=== PATIENT | female | born 1950 | race Caucasian/White ===

== ENCOUNTER 2019-09-09 05:49 | Outpatient (RCR) | payer MEDICARE, MEDICAID, SELFPAY | END 2019-09-24 00:01 | LOC: LAB 05:49 | PROVIDERS: Family Provider Family Medicine; Visit Provider Family Medicine | DX: I10 Essential (primary) hypertension (principal); E78.5 Hyperlipidemia, unspecified; E08.21 Diabetes mellitus due to underlying condition with diabetic nephropathy | CPT/HCPCS: 80048; 80061; 83036; 85025 ==

== ENCOUNTER 2020-01-30 12:17 | Inpatient (IN) | payer MEDICARE, MEDICAID, SELFPAY ==
[2020-01-30] VITALS (11 sets, daily range): BP systolic 82–134; BP diastolic 54–73; PULSE 108–182; RESP 16–46; TEMP 37–37.7; O2SAT 89–97; BMI 49.6
--- NOTE | 2020-01-30 12:35 | ECG_ITS ---
Measurements Intervals [place] Rate: 128 P: RI: 0 QRS: -9 QRSD: 81 T: -20 QT: 341 QTc: 499 ATRIAL FIBRILLATION WITH RAPID VENTRICULAR RESPONSE ABNORMAL RHYTHM ECG No previous ECG available for comparison Electronically Signed On 01-30-2020 14:15:47 CDT by Angle Bell M.D. [id number]
--- NOTE | 2020-01-30 12:35 | USCV_ITS ---
Leatha Eemry Age: 69 Gender: F : 1950 Exam Date: 01/30/2020 13:07 Ordering Phys: Dirk Amos DO Technologist: Sadaf Pavon Exam Location: [facility] [place]_ Indication: LEG EDEMA HISTORY: Lower extremity edema. PROCEDURES: Examined bilaterally were the greater saphenous, common femoral, femoral, profunda, popliteal, posterior tibial veins, and peroneal trunk.. FINDINGS: All veins examined appear free of thrombus. No filling defects on color Doppler flow analysis. Vein flow and caliber vary with respiration. Increase in venous flow with augmentation. All veins appear compressible. Compression difficult due to patient inability to tolerate. CONCLUSIONS No evidence of right lower extremity DVT. No evidence of left lower extremity DVT. Sharad De Los Santos MD (Electronically Signed) Final Date: 30 Jan 2020 13:55 S
--- NOTE | 2020-01-30 12:40 | ED_ITS ---
HPI - General Adult General: Chief complaint: General Medical Stated complaint: HYPOTENSION Time Seen by Provider: 01/30/20 12:19 History of Present Illness: HPI narrative: 69 yo presents from senior care. She is at the senior care because of frequent falls and inability to manage her ADLs. group home reports to EMS that she had a temp and with short of breath. EMS had a temp of 98 2 on arrival. In the ER she has a blood pressure of 98 6 she was also hypotensive on arrival here she is 82/54 she semi-reclined and tolerating well with no evidence of lethargy or lightheadedness or dizziness. She denies any fever. She has not had any sweats or chills. She does have some moderate orthopnea but she states that is chronic and has not changed recently. She has a pretty significant ulcer of her left calf and a smaller area in the anterior tibia is been ongoing for some time she started out with 2 small bumps she had been being seen for wound care clinic for a few months currently they are just managing evidently at the senior care. She states her legs are moderately more swollen than usual and a little bit reddened. She reports swelling usually goes down at night. Associated symptoms: Deny chest pain, dyspnea, malaise, nausea, rash or vomiting Review of Systems Const: Denies: fever, chills, body aches, change in appetite, fatigue or malaise ENMT: Denies: throat pain, ear pain, nasal discharge or nasal congestion Card: Denies: chest pain, edema, shortness of breath on exertion or shortness of breath when lying down Resp: Denies: shortness of breath, productive cough or non-productive cough GI: Denies: abdominal pain, nausea, vomiting, vomiting blood, coffee grounds in vomit, diarrhea, constipation, bloating, blood in stool or black tarry stool : Denies: flank pain, difficulty urinating, painful urination, urinary frequency or urinary urgency Skin/Breast: Denies: rash or itching PFS ED PFSH: Medical History COPD (chronic obstructive pulmonary disease) Diabetic nephropathy Hypertension Hypothyroidism Leg ulcer, left Sleep apnea Type 2 diabetes mellitus Vascular dementia Surgical History History of bilateral knee arthroplasty S/P breast lumpectomy Social History Smoking and tobacco status: never smoked Current gender identity: Female Physical Exam Const: COMMON NORMALS: no apparent distress GENERAL APPEARANCE: cooperative and comfortable ORIENTATION/CONSCIOUSNESS: Yes awake, Yes oriented to person and Yes oriented to place HENMT: COMMON NORMALS: normocephalic, head/scalp atraumatic, hearing grossly normal bilaterally, moist oral mucous membranes and oropharynx normal HEAD & SCALP: normocephalic and atraumatic Eye: COMMON NORMALS: PERRL, conjunctivae normal and no scleral icterus CONJUNCTIVA: Yes conjunctivae normal PUPIL: Yes PERRL Neck/C-Spine: COMMON NORMALS: full ROM, no lymphadenopathy, supple and no JVD Lymph: LYMPHATIC: no lymphadenopathy noted and no lymphedema noted Resp: COMMON NORMALS: normal respiratory effort, no retractions and no use of accessory muscles EFFORT & INSPECTION: Yes decreased respiratory effort Cardio: COMMON NORMALS: no JVD, regular rate, regular rhythm and no murmurs RATE: regular rate RHYTHM: regular rhythm GI: COMMON NORMALS: soft to palpation and no hepatosplenomegaly AUSCULTATION: Yes normoactive bowel sounds PALPATION: Yes soft, No tender, No guarding and Yes no hepatosplenomegaly Extremity: COMMON NORMALS: normal to inspection, normal capillary refill, no clubbing, cyanosis or edema, no calf tenderness and no pedal edema Neuro: SENSORIUM/ORIENTATION: Yes oriented to person and Yes oriented to place Skin: NARRATIVE SKIN EXAM: Left medial posterior calf ulcer full-thickness with exposure of subcutaneous fat it is at various levels. Estimated to be 6 to 8 inches at its greatest length and 4-5 at its least it is irregularly shaped. There is a smaller left anterior tibial partial-thickness ulcer. Bilaterally lower extremities are moderately red with 2+ edema Course Vital Signs: Vital signs: Vital Signs Temperature 98.6 F 01/31/20 13:58 Pulse Rate 90 01/31/20 13:58 Respiratory Rate 18 01/31/20 13:58 Blood Pressure 118/50 01/31/20 13:58 Pulse Oximetry 97 01/31/20 13:58 MDM - General Adult MDM Narrative: Medical decision making narrative: Patient has new onset atrial fibrillation however blood pressure is relatively low. Discussed w Kathuria will admit Lab Data: Labs: Lab Results 01/30/20 01/30/20 01/30/20 Range/Units 12:49 12:49 12:49 WBC 13.9 H (4.0-10.0) 10^3/ uL RBC 3.34 L (4.1-5.3) 10^6/u L Hgb 9.5 L (11.5-15.3) g/dL Hct 30.5 L (37.0-47.0) % MCV 91.3 (81-99) fL MCH 28.4 (28.0-34.0) pg MCHC 31.1 (30.0-36.0) g/dL RDW 16.2 H (12.1-15.1) % Plt Count 448 H (130-400) 10^3/c mm MPV 9.0 (7.4-10.4) fL Neut % (Auto) 78.1 % Lymph % (Auto) 13.8 % Pope % (Auto) 6.3 % Eos % (Auto) 1.2 % Baso % (Auto) 0.1 % Neut # (Auto) 10.9 H (1.8-7.7) 10^3/u L Lymph # (Auto) 1.9 (0.8-4.8) 10^3/u L Pope # (Auto) 0.9 (0.2-0.9) 10^3/u L Eos # (Auto) 0.2 (0.0-0.8) 10^3/u L Baso # (Auto) 0.0 (0.0-0.1) 10^3/u L Nucleated RBC % (a uto) 0 % Nucleated RBCs # 0.0 /100WBC Sodium 137 (136-145) mmol/L Potassium 4.9 (3.5-5.1) mmol/L Chloride 103 (98-107) mmol/L Carbon Dioxide 21 L (22-29) mmol/L Anion Gap 17.9 (5-19) BUN 66 H (8-23) mg/dL Creatinine 3.5 H (0.5-0.9) mg/dL Glucose 116 H (65-115) mg/dL Calculated Osmolal ity 284 L (285-295) mOsm/k g Lactate (0.5-2.2) mmol/L Calcium 8.6 (8.5-10.5) mg/dL Total Bilirubin 0.3 (0.15-1.2) mg/dL AST 31 (0-32) U/L ALT 19 (0-33) U/L Alkaline Phosphata se 152 H (35-105) IU/L Troponin T Baselin e 125 H* (0-10) ng/mL Troponin T 120 Min [place] (0-10) ng/mL Delta Troponin T (0-10) ABS# Total Protein 6.0 L (6.6-8.7) g/dL Albumin 2.7 L (3.5-5.2) g/dL Globulin 3.3 (1.3-4.6) g/dL Urine Color (Yellow) Urine Appearance (CLEAR) Urine pH (5-7) Ur Specific Gravit y (1.005-1.030) Urine Protein (Negative) Urine Glucose (UA) (Normal) Urine Ketones (Negative) Urine Blood (Negative) Urine Nitrate (Negative) Urine Bilirubin (NEGATIVE) Urine Urobilinogen (Negative) mg/dL Ur Leukocyte Ruma ase (Negative) 01/30/20 01/30/20 01/30/20 Range/Units 12:53 13:40 14:44 WBC (4.0-10.0) 10^3/ uL RBC (4.1-5.3) 10^6/u L Hgb (11.5-15.3) g/dL Hct (37.0-47.0) % MCV (81-99) fL MCH (28.0-34.0) pg MCHC (30.0-36.0) g/dL RDW (12.1-15.1) % Plt Count (130-400) 10^3/c mm MPV (7.4-10.4) fL Neut % (Auto) % Lymph % (Auto) % Pope % (Auto) % Eos % (Auto) % Baso % (Auto) % Neut # (Auto) (1.8-7.7) 10^3/u L Lymph # (Auto) (0.8-4.8) 10^3/u L Pope # (Auto) (0.2-0.9) 10^3/u L Eos # (Auto) (0.0-0.8) 10^3/u L Baso # (Auto) (0.0-0.1) 10^3/u L Nucleated RBC % (a uto) % Nucleated RBCs # /100WBC Sodium (136-145) mmol/L Potassium (3.5-5.1) mmol/L Chloride (98-107) mmol/L Carbon Dioxide (22-29) mmol/L Anion Gap (5-19) BUN (8-23) mg/dL Creatinine (0.5-0.9) mg/dL Glucose (65-115) mg/dL Calculated Osmolal ity (285-295) mOsm/k g Lactate 0.8 (0.5-2.2) mmol/L Calcium (8.5-10.5) mg/dL Total Bilirubin (0.15-1.2) mg/dL AST (0-32) U/L ALT (0-33) U/L Alkaline Phosphata se (35-105) IU/L Troponin T Baselin e (0-10) ng/mL Troponin T 120 Min [place] 101.8 H (0-10) ng/mL Delta Troponin T -23.2 L (0-10) ABS# Total Protein (6.6-8.7) g/dL Albumin (3.5-5.2) g/dL Globulin (1.3-4.6) g/dL Urine Color [place] (Yellow) Urine Appearance Clear (CLEAR) Urine pH 5 (5-7) Ur Specific Gravit y 1.020 (1.005-1.030) Urine Protein Neg (Negative) Urine Glucose (UA) Trace H (Normal) Urine Ketones 1+ H (Negative) Urine Blood Neg (Negative) Urine Nitrate Negative (Negative) Urine Bilirubin 1+ H (NEGATIVE) Urine Urobilinogen 1 H (Negative) mg/dL Ur Leukocyte Ruma ase Negative (Negative) Discharge Plan Discharge Patient Disposition: Admitted As Inpatient Admit Provider: Niurka Miramontes Clinical Impression: Atrial fibrillation, Leg ulcer, left, Type 2 diabetes mellitus, Cellulitis of left leg, Acute kidney injury Condition: Stable Referrals: Huang Herrera MD, [facility] [Primary Care Provider] - Discharge Date/Time: 01/30/20 20:29 Coding Level of Care Code ED Sheetfed Press Operator for Chg Fwd Exam Comprehensive
[2020-01-30 13:03] LABS: Basophils % 0.1 %; Eosinophils # 0.2 10^3/uL (0.0-0.8); Eosinophils % 1.2 %; Hematocrit 30.5 % (37.0-47.0); Hemoglobin 9.5 g/dL (11.5-15.3); Lymphocytes # 1.9 10^3/uL (0.8-4.8); Lymphocytes % 13.8 %; Mean Corpuscular HGB Conc 31.1 g/dL (30.0-36.0); Mean Corpuscular Hemoglobin 28.4 pg (28.0-34.0); Mean Corpuscular Volume 91.3 fL (81-99); Monocytes # 0.9 10^3/uL (0.2-0.9); Monocytes % 6.3 %; Neutrophils # 10.9 10^3/uL (1.8-7.7); Neutrophils % 78.1 %; Nucleated Red Blood Cells % 0 %; Platelet Count 448 10^3/cmm (130-400); Red Blood Count 3.34 10^6/uL (4.1-5.3); Red Cell Distribution Width 16.2 % (12.1-15.1); White Blood Count 13.9 10^3/uL (4.0-10.0)
[2020-01-30 13:18] LABS: Alanine Aminotransferase 19 U/L (0-33); Albumin Level 2.7 g/dL (3.5-5.2); Alkaline Phosphatase 152 IU/L (35-105); Aspartate Amino Transferase 31 U/L (0-32); Chloride 103 mmol/L (98-107); Glucose 116 mg/dL (65-115); Potassium 4.9 mmol/L (3.5-5.1); Sodium 137 mmol/L (136-145)
[2020-01-30 13:19] LABS: Lactate (Lactic Acid level) 0.8 mmol/L (0.5-2.2)
[2020-01-30 13:41] LABS: Anion Gap 17.9 (5-19); Blood Urea Nitrogen 66 mg/dL (8-23); Calcium 8.6 mg/dL (8.5-10.5); Carbon Dioxide 21 mmol/L (22-29); Globulin 3.3 g/dL (1.3-4.6); Osmolality Calculated 284 mOsm/kg (285-295); Total Bilirubin 0.3 mg/dL (0.15-1.2)
[2020-01-30 13:48] LABS: Troponin(5th) Baseline 125 ng/mL (0-10)
[2020-01-30 13:53] LABS: Add Urine Microscopic? NO
--- NOTE | 2020-01-30 14:03 | XR_ITS ---
WS: [id number] XR chest 1V portable [id number] REASON FOR EXAM: dyspnea/cough FINDINGS: Cardiomegaly is noted the heart is larger than previous exam. The cardiothoracic ratio 19/3 2 cm. A prominent hiatal hernia is seen. The peripheral lungs are clear there is no pneumonia, pleural effu speedy, pulmonary edema, or mass effect. The hilum and apices normal. XR/XR chest 1V portable [id number] IMPRESSION: Cardiomegaly Hiatal hernia.
[2020-01-30 14:29] LABS: Blood Urine Neg (Negative); Glucose Urine UA Trace (Normal); Ketones Urine 1+ (Negative); Protein Urine Neg (Negative); Urine Appearance Clear (CLEAR); Urine Color Amber (Yellow); pH Urine 5 (5-7)
[2020-01-30 14:30] LABS: Bilirubin Urine 1+ (NEGATIVE); Leukocyte Esterase Urine Negative (Negative); Nitrate Urine Negative (Negative); Urobilinogen Urine 1 mg/dL (Negative)
--- NOTE | 2020-01-30 14:35 | ECG_ITS ---
Measurements Intervals [place] Rate: 103 P: [place]: 0 QRS: -1 QRSD: 93 T: -66 QT: 331 QTc: 435 ATRIAL FIBRILLATION WITH RAPID VENTRICULAR RESPONSE NONSPECIFIC T-WAVE ABNORMALITY Compared to ECG 01/30/2020 12:39:39 T-wave abnormality now present Electronically Signed On 01-31-2020 15:28:59 CDT by Angle Bell M.D. [id number]
[2020-01-30] MEDS: LORazepam 2 mg/mL INJ 1 mL 0.5 MG IVP (15:12)
[2020-01-30 15:25] LABS: Troponin 5 2HR Delta -23.2 ABS# (0-10)
[2020-01-30 15:26] LABS: Troponin 5 2HR 101.8 ng/mL (0-10)
--- NOTE | 2020-01-30 16:11 | PM.HP ---
Providers/Chief Complaint Admitting Physician: Niurka miramontes MD Primary Care Provider: Huang Herrera MD, [facility] [place] Chief Complaint: HYPOTENSION History of Present Illness Leatha Emery is a 69 year old female with a past medical history of CAD, hypertension, CKD, GALA, asthma, diabetes, chronic lower extremity cellulitis, edema in bilateral lower extremities with history of frequent admissions at [facility] after being admitted there to the ICU for management of severe sepsis with septic shock found to be secondary to bilateral lower extremity cellulitis. She also had acute metabolic encephalopathy, hypokalemia, PERRY and acute respiratory failure with hypoxia at the time. It appears she underwent debridement at bedside for lower extremity cellulitis and necrotic wound on January 06 by surgical team there. He was initially on vasopressors for a little bit and then improved. Her PERRY also improved reportedly. Blood cultures from January 06 had returned positive for Streptococcus pyogenes. Wound cultures from January 06 also showed positive for Streptococcus biology knees. Per notes reviewed from that hospitalization, it appears Pseudomonas and MRSA were also isolated, however I am unable to get any confirmation of this. Leukocytosis at the time of discharge was 16.6. She was discharged on January 11. He received treatment with IV cefazolin while in the hospital and was discharged on IV vancomycin for 1 week post discharge. Thereafter she was on a course of Omnicef for 10 days. She returns today to the ER after being sent from [facility] after noted to have fever of 100.7 Fahrenheit last evening. She was additionally hypotensive with SBP 80s at the [place] and again at presentation to ED. Labs notable for PERRY, elevated troponin >100, atrial fibrillation with RVR (also noted on recent admission at [place]), leukocytosis 13.9. Her wound has reportedly been getting worse and noted to have foul smelling greenish discharge. She is afebrile sine arrival here, currently awake and alert, though grossly appears to be dehydrated and ill appearing. Review of Systems General: Reports: 10 or more systems reviewed and unremarkable except in HPI and below Const: Denies: fever, chills or body aches Eyes: Denies: change in vision, blurry vision or photophobia ENMT: Reports: hoarseness; Denies: throat pain, enlarged tonsils, painful swallowing or nasal congestion Card: Denies: chest pain, palpitations, irregular heart rhythm, edema, swelling of feet/ankles, lightheadedness, pre-syncope, shortness of breath on exertion or shortness of breath when lying down Resp: Denies: shortness of breath, productive cough, non-productive cough, wheezing, stridor, pain on inspiration, change in phlegm color, coughing up blood or chest congestion GI: Denies: abdominal pain, nausea, vomiting, vomiting blood, coffee grounds in vomit, difficulty swallowing, heartburn/indigestion, diarrhea, constipation, cramping, change in stool character, blood in stool or black tarry stool : Denies: flank pain, difficulty urinating, painful urination, urinary frequency, urinary urgency, urinary hesitancy or blood in urine Musc: Denies: neck pain, back pain, extremity pain, joint swelling, joint warmth or deformity Neuro: Denies: headache, numbness in extremities, weakness in extremities, changes in sensation, difficulty walking, frequent falls, dizziness, vertigo, behavioral changes, slurred speech or seizure-like activity Psych: Denies: anxiety, depression, suicidal ideation or homicidal ideation Endo: Denies: excessive urination, excessive thirst, tired all the time, cold intolerance or hot flashes Vitor/Lymph: Denies: easy bruising or easy bleeding Medications/Allergies Home Medications Medication Instructions Recorded Confirmed Last Taken Type acetaminophen 650 mg PO QID PRN 01/30/20 01/30/20 01/29/20 History amlodipine 5 mg PO DAILY 01/30/20 01/30/20 01/30/20 History aripiprazole 5 mg PO BID 01/30/20 01/30/20 01/30/20 History aspirin 81 mg PO DAILY 01/30/20 01/30/20 01/30/20 History bisacodyl 10 mg DC DAILY PRN 01/30/20 01/30/20 01/30/20 History calcium carbonate 500 mg PO DAILY 01/30/20 01/30/20 01/30/20 History cefdinir 300 mg PO BID 01/30/20 01/30/20 01/30/20 History dapagliflozin [Farxiga] 5 mg PO DAILY 01/30/20 01/30/20 01/30/20 History fesoterodine [Toviaz] 4 mg PO DAILY 01/30/20 01/30/20 01/30/20 History fluticasone furoate-vilanterol 1 inh INHALATION DAILY 01/30/20 01/30/20 01/30/20 History [Breo Ellipta] fluticasone propionate 2 spray INTRANASAL DAILY 01/30/20 01/30/20 01/30/20 History furosemide [Lasix] 40 mg PO DAILY 01/30/20 01/30/20 01/30/20 History levothyroxine 125 mcg PO DAILY 01/30/20 01/30/20 01/30/20 History linagliptin [Tradjenta] 5 mg PO DAILY 01/30/20 01/30/20 01/30/20 History lisinopril 10 mg PO DAILY 01/30/20 01/30/20 01/30/20 History magnesium hydroxide [Milk of 30 ml PO DAILY PRN 01/30/20 01/30/20 01/29/20 History Magnesia] melatonin 3 mg PO DAILY 01/30/20 01/30/20 01/29/20 History metoprolol tartrate 100 mg PO BID 01/30/20 01/30/20 01/30/20 History mirtazapine 45 mg PO DAILY 01/30/20 01/30/20 01/30/20 History multivitamin 1 tab PO DAILY 01/30/20 01/30/20 01/30/20 History nystatin 1 applic TOPICAL BID 01/30/20 01/30/20 01/30/20 History oxycodone-acetaminophen 1 tab PO DAILY 01/30/20 01/30/20 01/30/20 History oxycodone-acetaminophen 1 tab PO Q4H PRN 01/30/20 01/30/20 01/30/20 History pantoprazole 40 mg PO DAILY 01/30/20 01/30/20 01/30/20 History polyethylene glycol 3350 [Miralax] 17 g PO DAILY PRN 01/30/20 01/30/20 01/30/20 History senna 8.6 mg PO BID 01/30/20 01/30/20 01/30/20 History simvastatin 20 mg PO DAILY 01/30/20 01/30/20 01/29/20 History sodium hypochlorite [HySept] 1 applic TOPICAL BID 01/30/20 01/30/20 01/29/20 History trazodone 200 mg PO DAILY 01/30/20 01/30/20 01/29/20 History venlafaxine 150 mg PO DAILY 01/30/20 01/30/20 01/30/20 History Allergies Allergy/AdvReac Type Severity Reaction Status Date / Time clarithromycin Allergy Unknown Unknown Verified 01/30/20 13:48 hydrocodone Allergy Unknown Unknown Verified 01/30/20 13:48 metformin Allergy Unknown Unknown Verified 01/30/20 13:48 sitagliptin [From Januvia] Allergy Unknown Unknown Verified 01/30/20 13:48 tetanus and diphtheria Allergy Unknown Unknown Verified 01/30/20 13:48 toxoids triamcinolone Allergy Unknown Unknown Verified 01/30/20 13:48 PFSH Acute PFSH: Medical History COPD (chronic obstructive pulmonary disease) Diabetic nephropathy Hypertension Hypothyroidism Leg ulcer, left Sleep apnea Type 2 diabetes mellitus Vascular dementia Surgical History History of bilateral knee arthroplasty S/P breast lumpectomy Social History Smoking and tobacco status: never smoked Current gender identity: Female Vitals/I&O/Wt Last Vital Signs Temp 98.6 F 01/30/20 12:19 Pulse 120 H 01/30/20 12:19 Resp 17 01/30/20 13:45 BP 82/54 01/30/20 12:19 Pulse Ox 95 01/30/20 12:26 Weight last 48 hrs Weight 127.006 kg Physical Exam Narrative: EXAM NARRATIVE: GEN: Awake, alert and oriented, dehydrated+, ill appearing grossly HEENT: dry skin no icterus ,pallor+ RS: CTA B/L except crackles over RUL Abd: Soft, nt/nd , bs+ 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 B/L lower exxtremities with warmth, tenderness and erythema c/f cellulitis. Some bullae notes on right ankle medially Urinary Catheter Management^: Patino: Cath Placed During This Visit: yes Reason for Continuing Indwelling Catheter: Assist healing open wound Urinary Catheter Date of Insertion: 01/30/20 Urinary Catheter Time of Insertion: 13:46 Data : 01/30/20 12:49 01/30/20 12:49 Micro: Microbiology 01/30/20 12:49 Blood Culture - Preliminary Blood SPECIMEN COLLECTED 01/30/20 12:53 Blood Culture - Preliminary Blood SPECIMEN COLLECTED A&P Assessment and plan (1) Sepsis: Status: Acute (2) Sepsis associated hypotension: Status: Acute (3) Acute kidney injury: Status: Acute (4) Cellulitis of left leg: Status: Acute (5) Atrial fibrillation: Status: Acute (6) Sleep apnea: Status: Acute (7) Vascular dementia: Status: Acute (8) PERRY (acute kidney injury): Status: Acute (9) Type 2 diabetes mellitus: Status: Acute (10) Hypothyroidism: Status: Acute (11) Leg ulcer, left: Status: Acute (12) COPD (chronic obstructive pulmonary disease): Status: Acute (13) Elevated troponin: Status: Acute Additional A&P Information Admit to ICU # Sepsis: meets criteria with tachycardia, leukocytosis, fever, infective focus by way of cellulitis with end organ dysfunction by way of PERRY and hypotension Hypotensive currenty improving after fluid boluses, BP at 100/69mmhg HR 120 Maintainence IVF at 75cc/hr Patient grossly dehydrated, intravascularly deplted, unclear if she has a h/o CHF or last EF, however per review of meds she is on daily lasix. Recent h/o group B strep septicemia with septic shock requiring admission at [place], source thought to be LE cellulitis, s/p iv vancomycin + cefdinir, stopped one week ago Wound cx per report with pseudomonas and MRSA additionally Prior to that admitted at [facility], details unknown Blood cx sent empiric Zosyn + vanco for now # Afib with RVR, likely as a result of sepsis Fluid resuscitation as above Will hold off on rate control medication until BP improves Troponin elevated with negative 2 hr delta, likely as a result of afib vs type [address]-T changes on EKG currently Hold off on a/c for now until bleeding risk can be established # PERRY likely from sepsis Patino, I/o strictly, fluids as above # troponin leak as above, check echocardiogram # LE cellilitis: abx as above # LE chronic ulcers in the setting of lymphedema : local wound care # COPD, not currently exacerbated: duoneb and budesonide scheduled nebulization BiPAP if needed. doesnt usually use at facility # DM: insulin sliding scale DNR/DNI dvt ppx: heparin Attestations Medical Necessity Statement*: ICU admission for sepsis management Coding Level of Care Code Acute Technical Communication Teacher for g Fwd Diagnoses Sepsis A41.9 Sepsis associated hypotension A41.9; I95.9 Acute kidney injury N17.9 Cellulitis of left leg L03.116 Atrial fibrillation I48.91 Sleep apnea G47.30 Vascular dementia F01.50 PERRY (acute kidney injury) N17.9 Type 2 diabetes mellitus E11.9 Hypothyroidism E03.9 Leg ulcer, left L97.929 COPD (chronic obstructive pulmonary disease) J44.9 Elevated troponin R79.89
[2020-01-30] MEDS: piperacillin-tazobactam 3.375 GM in sodium chloride 0.9% (plus) 50 ML IV (16:38)
--- NOTE | 2020-01-30 17:12 | PC.RESP ---
Smoking Cessation information to patient with a schedule of classes.
--- NOTE | 2020-01-30 18:35 | ECG_ITS ---
Measurements Intervals [place] Rate: 115 P: [place]: 0 QRS: 2 QRSD: 84 T: -59 QT: 309 QTc: 428 ATRIAL FIBRILLATION WITH RAPID VENTRICULAR RESPONSE NONSPECIFIC T-WAVE ABNORMALITY Compared to ECG 01/30/2020 12:39:39 T-wave abnormality now present Electronically Signed On 01-31-2020 15:27:56 CDT by Angle Bell M.D. [id number]
--- NOTE | 2020-01-30 18:49 | PC.NURSE ---
EKG done at 1847 and shown to ER doctor
[2020-01-30 19:28] LABS: Troponin 5 6HR Delta -15.4 ng/L (0-12)
[2020-01-30 19:29] LABS: Troponin 5 6HR 109.6 ng/mL (0-10)
--- NOTE | 2020-01-30 19:46 | PC.NURSE ---
REport called to [facility]
[2020-01-30 19:51] LABS: Magnesium 2.1 mg/dL (1.7-2.3)
[2020-01-30 20:43] LABS: Glucose Point of Care 78 mg/dL (70-110)
[2020-01-30] MEDS: sodium chloride 0.9% 1,000 ML 75 ML IV (20:59)
--- NOTE | 2020-01-30 21:29 | PC.NURSE ---
Large ulceration to left lower leg, blister to right lower leg. SCDs not applied.
[2020-01-30] MEDS: heparin 5,000 unit/mL INJ 1 mL 5000 UNIT SUBCUT (21:33)
[2020-01-31] VITALS (21 sets, daily range): BP systolic 102–136; BP diastolic 42–74; PULSE 82–116; RESP 14–29; TEMP 36.6–37.5; O2SAT 91–97
[2020-01-31] MEDS: piperacillin-tazobactam 3.375 GM in sodium chloride 0.9% (plus) 50 ML IV ×2 (02:10→13:30)
[2020-01-31] MEDS: ipratropium-albuterol 3 mL Neb INHALATION ×4 (03:08→20:09)
[2020-01-31 03:12] LABS: Glucose Point of Care 94 mg/dL (70-110)
[2020-01-31] MEDS: acetaminophen 325 mg Tablet 650 MG PO ×2 (03:36→12:35)
[2020-01-31] MEDS: morphine 4 mg/mL SDV 1 mL 2 MG IVP (04:04)
[2020-01-31 04:56] LABS: Basophils % 0.2 %; Eosinophils # 0.4 10^3/uL (0.0-0.8); Eosinophils % 2.9 %; Hematocrit 28.4 % (37.0-47.0); Hemoglobin 8.7 g/dL (11.5-15.3); Lymphocytes # 2.6 10^3/uL (0.8-4.8); Lymphocytes % 21.4 %; Mean Corpuscular HGB Conc 30.6 g/dL (30.0-36.0); Mean Corpuscular Hemoglobin 28.6 pg (28.0-34.0); Mean Corpuscular Volume 93.4 fL (81-99); Mean Platelet Volume 9.3 fL (7.4-10.4); Monocytes % 8.4 %; Neutrophils # 8.1 10^3/uL (1.8-7.7); Neutrophils % 66.4 %; Nucleated Red Blood Cells % 0 %; Platelet Count 391 10^3/cmm (130-400); Red Blood Count 3.04 10^6/uL (4.1-5.3); Red Cell Distribution Width 16.2 % (12.1-15.1); White Blood Count 12.2 10^3/uL (4.0-10.0)
[2020-01-31 05:25] LABS: Alanine Aminotransferase 17 U/L (0-33); Albumin Level 2.3 g/dL (3.5-5.2); Alkaline Phosphatase 128 IU/L (35-105); Anion Gap 15.5 (5-19); Aspartate Amino Transferase 27 U/L (0-32); Blood Urea Nitrogen 48 mg/dL (8-23); Calcium 8.5 mg/dL (8.5-10.5); Carbon Dioxide 22 mmol/L (22-29); Chloride 107 mmol/L (98-107); Globulin 3.7 g/dL (1.3-4.6); Glucose 94 mg/dL (65-115); Osmolality Calculated 288 mOsm/kg (285-295); Potassium 4.5 mmol/L (3.5-5.1); Sodium 140 mmol/L (136-145); Total Bilirubin 0.3 mg/dL (0.15-1.2)
[2020-01-31] MEDS: heparin 5,000 unit/mL INJ 1 mL 5000 UNIT SUBCUT ×2 (08:17→21:11)
[2020-01-31] MEDS: budesonide 0.5 mg/2 mL Neb INHALATION ×2 (09:15→20:09)
[2020-01-31] MEDS: atorvastatin 40 mg Tablet 20 MG PO (09:42)
[2020-01-31] MEDS: ARIPiprazole 10 mg Tablet 5 MG PO ×2 (09:42→19:05)
[2020-01-31] MEDS: mirtazapine 30 mg Tablet 45 MG PO (09:42)
[2020-01-31] MEDS: aspirin 81 mg EC Tablet PO (09:42)
[2020-01-31] MEDS: levothyroxine 125 mcg Tablet PO (09:42)
[2020-01-31] MEDS: nystatin powder 15 gm Btl 1 APPLIC TOPICAL (09:42)
[2020-01-31] MEDS: pantoprazole DR 40 mg Tablet PO (09:43)
[2020-01-31] MEDS: venlafaxine ER (24HR) 150 mg Capsule PO (09:43)
--- NOTE | 2020-01-31 09:50 | PM.PN ---
Subjective Subjective: Interval history: Afberile, hemodynamically stable, appears more somnolent this morning, earlier today per reports she was conversant. WBC 12.2, hb 8.7, cr improving at 2.1. Blood cx negative thus far. Medications: Reviewed: Yes Vitals/I&O/Wt Last Vital Signs Temp 97.9 F 01/31/20 04:00 Pulse 83 01/31/20 09:25 Resp 19 H 01/31/20 09:25 BP 114/42 01/31/20 06:00 Pulse Ox 95 01/31/20 09:25 01/30/20 01/31/20 01/31/20 22:59 06:59 14:59 Intake Total 4085.18 / 4085.18 25 / 4110.18 Output Total 900 / 900 450 / 1350 Balance 3185.18 / 3185.18 -425 / 2760.18 Weight last 48 hrs Weight 118.887 kg Weight 119.023 kg Weight 127.006 kg Physical Exam Narrative: EXAM NARRATIVE: GEN: more somnolent this morning, no acute distress CVS: S1S2 N RS: CTA B/L anteriorly, not auscultated posteriorly Abd: Soft, nt/nd , bs+ DRY CHAIN PULLER: more somnolent, wakes up intermittently to nod yes or no Urinary Catheter Management^: Patino: Cath Placed During This Visit: yes Reason for Continuing Indwelling Catheter: Assist healing open wound Urinary Catheter Date of Insertion: 01/30/20 Urinary Catheter Time of Insertion: 13:46 Data : 01/31/20 04:23 01/31/20 04:23 Micro: Microbiology 01/30/20 12:49 Blood Culture - Preliminary Blood SPECIMEN COLLECTED 01/30/20 12:53 Blood Culture - Preliminary Blood SPECIMEN COLLECTED A&P Assessment and plan (1) Sepsis: Status: Acute (2) Sepsis associated hypotension: Status: Acute (3) Acute kidney injury: Status: Acute (4) Cellulitis of left leg: Status: Acute (5) Atrial fibrillation: Status: Acute (6) Sleep apnea: Status: Acute (7) Vascular dementia: Status: Acute (8) Type 2 diabetes mellitus: Status: Acute (9) Hypothyroidism: Status: Acute (10) Leg ulcer, left: Status: Acute (11) COPD (chronic obstructive pulmonary disease): Status: Acute (12) Elevated troponin: Status: Acute Additional A&P Information Admit to ICU # Sepsis: meets criteria with tachycardia, leukocytosis, fever, infective focus by way of cellulitis with end organ dysfunction by way of PERRY and hypotension Continue Maintainence IVF at 75cc/hr Hydration appears improved today, renal function improving Recent h/o group B strep septicemia with septic shock requiring admission at [place] 12/2019, source thought to be LE cellulitis, s/p iv vancomycin + cefdinir, stopped one week ago Wound cx per report with pseudomonas and MRSA additionally Prior to that admitted at [facility], details unknown Blood cx sent , currently negative to date empiric Zosyn + vanco for now to continue # Afib with RVR, likely as a result of sepsis , rate controlled now Troponin elevated with negative 2 hr delta, likely as a result of afib vs type [address] [place]-T changes on EKG currently Hold off on a/c for now until bleeding risk can be established # PERRY likely from sepsis Patino, I/o strictly, fluids as above, improving to cr 2.1 # troponin leak as above, check echocardiogram # LE cellilitis: abx as above. Evolving color changes over LLE today, if doppler pulses not obtained, will order arterial duplex # LE chronic ulcers in the setting of lymphedema : local wound care , wet to dry dressing # COPD, not currently exacerbated: duoneb and budesonide scheduled nebulization BiPAP if needed. Doesn't usually use at facility # DM: insulin sliding scale # more somnolent today, hold remeron and venlafaxine today, monitor closely, pupils B/L NSNR, moving upper extremities, CT head if no improvement in mental status DNR/DNI dvt ppx: heparin Attestations Medical Necessity Statement*: ongoing need for iv abx, management of sepsis Coding Level of Care Code Acute Nitroglycerin Distributor for [facility] Fwd Diagnoses Sepsis A41.9 Sepsis associated hypotension A41.9; I95.9 Acute kidney injury N17.9 Cellulitis of left leg L03.116 Atrial fibrillation I48.91 Sleep apnea G47.30 Vascular dementia F01.50 Type 2 diabetes mellitus E11.9 Hypothyroidism E03.9 Leg ulcer, left L97.929 COPD (chronic obstructive pulmonary disease) J44.9 Elevated troponin R79.89
--- NOTE | 2020-01-31 10:20 | USCV_ITS ---
Leatha Emery Age: 69 Gender: F : 1950 Exam Date: 01/31/2020 15:19 Ordering Phys: Niurka Miramontes MD Technologist: Cain Alcala Exam Location: [facility] [place] Indication: Developing gangereneous changes Risk Factors: Previous Vascular Surgery: RIGHT LEFT Waveform Velocity (cm/s) Velocity (cm/s) Waveform Iliac Prox 158.1 Monophasic Iliac Mid Monophasic 124.6 Iliac Distal 131.0 Monophasic HONEY PRODUCER 142.2 Monophasic SFA Prox 150.2 Monophasic SFA Mid 140.6 Monophasic SFA Dist 124.6 Monophasic POP 123.0 Monophasic DPA 21.0 Monophasic ANAND 0.4 FINDINGS No flow noted in LT MAIL CARRIER TECHNICIAN at this time. Monophasic waveforms throughout Monophasic and continuous waveform in the dorsalis pedis artery Markedly diminished resting TBI CONCLUSIONS Markedly diminished resting TBI on the left side, suggestive of severe peripheral arterial disease Possible multisegmental disease Features of total occlusion of the posterior tibial artery with collateral filling in the dorsalis pedis artery Compared to the study from 09/24/2015, the above findings appear to be new Dr Ruddy John MD FAC (Electronically Signed) Final Date: 31 Jan 2020 19:32 S
[2020-01-31] MEDS: sodium chloride 0.9% 1,000 ML 75 ML IV (10:51)
[2020-01-31 11:30] LABS: Glucose Point of Care 85 mg/dL (70-110)
[2020-01-31 11:30] LABS: Glucose Point of Care 95 mg/dL (70-110)
--- NOTE | 2020-01-31 13:30 | PC.NURSE ---
Patient's son Hugo Emery called and stated that he does not feel like his mother is getting the proper care at [facility] and he would like to speak to someone about possibly placing his mother in another facility. Explained to Hugo that someone from social science research assistant could call him closer to her discharge. Hugo verbalized understanding and ask that someone call him before discharge.
--- NOTE | 2020-01-31 13:57 | PC.NURSE ---
Report to Paula THORPE at this time.
[2020-01-31 16:22] LABS: Glucose Point of Care 89 mg/dL (70-110)
--- NOTE | 2020-01-31 17:29 | PC.PT ---
discussed mobility with [facility] and nursing states she has been a devin lift transfer lately due to refusing to assist with transfers. D/C PT services.
--- NOTE | 2020-01-31 20:40 | USCV_ITS ---
Leatha Emery Age: 69 Gender: F : 1950 Exam Date: 01/31/2020 15:05 Ordering Phys: Niurka Miramontes MD Technologist: Cain Alcala Exam Location: [facility] [place] Indication: ENDOCARDITIS BP: 132 / 75 HR: 92 Rhythm: Sinus Technical Quality: Fair MEASUREMENTS (Male / Female) Normal Values 2D ECHO LV Diastolic Diameter PLAX 4.3 cm 4.2 - 5.9 / 3.9 - 5.3 cm LV Systolic Diameter PLAX 2.7 cm IVS Diastolic Thickness 0.9 cm 0.6 - 1.0 / 0.6 - 0.9 cm IVS Systolic Thickness 1.1 cm LVPW Diastolic Thickness 0.9 cm 0.6 - 1.0 / 0.6 - 0.9 cm LVPW Systolic Thickness 1.3 cm LVOT Diameter 2.0 cm LV Ejection Fraction 2D Teich 67.3 % LV Ejection Fraction MOD 2C 59.6 % LV Ejection Fraction 2C AL 59.3 % LA Diameter 5.8 cm LA Width 5.5 cm LA Height 4.9 cm RA Width 4.0 cm RA Height 4.0 cm Aorta at Sinotubular Diameter 2.5 cm M-MODE LV Diastolic Diameter MM 5.7 cm 4.2 - 5.9 / 3.9 - 5.3 cm LV Systolic Diameter MM 4.0 cm LV Ejection Fraction MM Teich 56.9 % IVS Diastolic Thickness MM 1.0 cm 0.6 - 1.0 / 0.6 - 0.9 cm IVS Systolic Thickness MM 1.4 cm LVPW Diastolic Thickness MM 1.4 cm 0.6 - 1.0 / 0.6 - 0.9 cm LVPW Systolic Thickness MM 2.0 cm RV Diastolic Diameter MM 1.3 cm Aortic Annulus Diameter 3.5 cm LA Ao Ratio MM 1.7 MV E Point Septal Separation 1.1 cm DOPPLER AV Peak Velocity 155.0 cm/s LVOT Peak Velocity 108.0 cm/s AV Area Cont Eq vti 2.6 cm squared AV Area Cont Eq pk 2.2 cm squared MV Area PHT 3.9 cm squared Mitral E to A Ratio 4.2 MV E' Velocity 12.0 cm/s Mitral E to MV E' Ratio 8.9 Mitral E to LV E' Lateral Ratio 9.2 Mitral E to LV E' Septal Ratio 8.6 TR Peak Velocity 265.0 cm/s TR Peak Gradient 28.1 mmHg TV Peak E Velocity 97.0 cm/s Right Atrial Pressure 3.0 mmHg Pulmonary Artery Systolic Pressu 31.1 mmHg PV Peak Velocity 125.0 cm/s FINDINGS Left Ventricle Normal left ventricular size and systolic function, EF 55 %. No gross abnormalities noted. Study is of suboptimal quality because of the poor ultrasonic window Right Ventricle Normal right ventricular size and systolic function. Right Atrium Possibly of normal size Left Atrium Moderately increased left atrial size. Mitral Valve Moderate mitral annular calcification. Mild mitral valve regurgitation. Aortic Valve Thickened aortic valve. Tricuspid Valve Could not be visualized well Pulmonic Valve Could not visualized well Pericardium No pericardial effusion. Aorta Normal aortic annulus size. CONCLUSIONS Normal left ventricular size and systolic function, EF 55 %. No gross abnormalities noted. Study is of suboptimal quality because of the poor ultrasonic window. Normal right ventricular size and systolic function. Moderate mitral annular calcification. Mild mitral valve regurgitation. Thickened aortic valve. There is no pericardial effusion. There are no intracardiac masses. Technically difficult study because of the poor ultrasonic window. No previous studies available for comparison Dr Ruddy John MD FACC (Electronically Signed) Final Date: 31 Jan 2020 19:03 S
[2020-01-31 21:36] LABS: Glucose Point of Care 153 mg/dL (70-110)
[2020-02-01] VITALS (15 sets, daily range): BP systolic 106–139; BP diastolic 67–84; PULSE 85–110; RESP 12–26; TEMP 36.4–37.4; O2SAT 92–97
[2020-02-01] MEDS: piperacillin-tazobactam 3.375 GM in sodium chloride 0.9% (plus) 50 ML IV ×3 (02:11→20:27)
[2020-02-01] MEDS: ipratropium-albuterol 3 mL Neb INHALATION ×3 (02:16→20:13)
--- NOTE | 2020-02-01 02:18 | PC.NURSE ---
PT REFUSED INSULIN BECAUSE SHE FELT THAT HER SUGAR WOULD DROP. BS WAS 153 BUT HAS BEEN 80-90'S. WILL CONTINUE TO MONITOR.
--- NOTE | 2020-02-01 03:29 | PC.NURSE ---
PT HAS BEEN ATTENTION SEEKING. PT HAS BEEN ON THE CALL LIGHT 20-30 TIMES PER HOUR. PT IS NON COMPLIANT WITH TURNING, INSULIN, SNACKS, WEARING 02, OR KEEPING PRESSURE OFF THE LLE. PT WAS USING THE KURLEX TO SCRATCH THE BACK OF THE LEFT CALF. PT C/O 10/10 PAIN EARLIER AND THE DOCTOR PRESCRIBED HYDROMORPHONE 2MG. PT SAID THAT HELPED A LITTLE. DRESSING WAS COMPLETELY SATURATED SO A NEW DRESSING WAS APPLIED. WILL CONTINUE TO MONITOR.
[2020-02-01 04:49] LABS: Basophils % 0.3 %; Eosinophils # 0.3 10^3/uL (0.0-0.8); Eosinophils % 3.1 %; Hemoglobin 9.7 g/dL (11.5-15.3); Lymphocytes # 2.1 10^3/uL (0.8-4.8); Lymphocytes % 20.2 %; Mean Corpuscular HGB Conc 30.3 g/dL (30.0-36.0); Mean Corpuscular Volume 95.8 fL (81-99); Mean Platelet Volume 9.3 fL (7.4-10.4); Monocytes # 0.9 10^3/uL (0.2-0.9); Monocytes % 8.3 %; Neutrophils % 67.4 %; Nucleated Red Blood Cells % 0 %; Platelet Count 392 10^3/cmm (130-400); Red Blood Count 3.34 10^6/uL (4.1-5.3); Red Cell Distribution Width 16.6 % (12.1-15.1); White Blood Count 10.4 10^3/uL (4.0-10.0)
[2020-02-01 05:39] LABS: Alkaline Phosphatase 133 IU/L (35-105); Anion Gap 15.5 (5-19); Blood Urea Nitrogen 29 mg/dL (8-23); Calcium 8.6 mg/dL (8.5-10.5); Carbon Dioxide 20 mmol/L (22-29); Chloride 109 mmol/L (98-107); Globulin 4.3 g/dL (1.3-4.6); Glucose 110 mg/dL (65-115); Osmolality Calculated 288 mOsm/kg (285-295); Potassium 4.5 mmol/L (3.5-5.1); Sodium 140 mmol/L (136-145); Total Bilirubin 0.2 mg/dL (0.15-1.2); Total Protein 6.3 g/dL (6.6-8.7)
[2020-02-01 05:40] LABS: Alanine Aminotransferase 17 U/L (0-33); Aspartate Amino Transferase 27 U/L (0-32)
[2020-02-01 06:15] LABS: Glucose Point of Care 97 mg/dL (70-110)
--- NOTE | 2020-02-01 07:45 | PC.NURSE ---
PICC LINE not patent Pt gown was soaked. Pt stated, they have change me 3-4 times yesterday. When PICC line was assessed, flushed with saline, it is leaking. No blood return noted. notified. New IV started on left hand. #20 G.
--- NOTE | 2020-02-01 07:45 | PC.NURSE ---
PICC LINE not Patent Pt had a soaked gown upun
[2020-02-01] MEDS: aspirin 81 mg EC Tablet PO (08:13)
[2020-02-01] MEDS: ARIPiprazole 10 mg Tablet 5 MG PO ×2 (08:15→17:24)
[2020-02-01] MEDS: pantoprazole DR 40 mg Tablet PO (08:15)
[2020-02-01] MEDS: atorvastatin 40 mg Tablet 20 MG PO (08:15)
[2020-02-01] MEDS: levothyroxine 125 mcg Tablet PO (08:15)
[2020-02-01] MEDS: metoprolol tartrate 50 mg Tablet 100 MG PO ×2 (08:16→17:25)
[2020-02-01] MEDS: heparin 5,000 unit/mL INJ 1 mL 5000 UNIT SUBCUT ×2 (08:16→20:28)
[2020-02-01] MEDS: budesonide 0.5 mg/2 mL Neb INHALATION ×2 (08:28→20:13)
[2020-02-01 08:50] LABS: Vancomycin Trough 5.5 ug/mL (10-15)
[2020-02-01] MEDS: nystatin powder 15 gm Btl 1 APPLIC TOPICAL ×2 (10:49→17:25)
[2020-02-01 11:15] LABS: Glucose Point of Care 121 mg/dL (70-110)
--- NOTE | 2020-02-01 13:30 | P.PN_ITS ---
Subjective Subjective: Interval history: c/o pain over legs, wishes to reposition, cant get into comfortbale position. Noted to be more tachypneic than previous exams Arterial doppler yesetrday with occluded AMMUNITION STOREKEEPER. Stable color changes over extremities Patient is mildly confused today and believes she was speaking to her , who had also visited her this afternoon. Medications: Reviewed: Yes Vitals/I&O/Wt Last Vital Signs Temp 98.4 F 02/01/20 11:53 Pulse 95 02/01/20 11:53 Resp 16 02/01/20 12:18 BP 129/77 02/01/20 11:53 Pulse Ox 95 02/01/20 11:53 01/31/20 02/01/20 02/01/20 22:59 06:59 14:59 Intake Total 290 / 1290 50 / 1340 1360 / 1360 Output Total 400 / 1200 450 / 1650 Balance -110 / 90 -400 / -310 1360 / 1360 Weight last 48 hrs Weight 117.991 kg Weight 118.887 kg Weight 119.023 kg Physical Exam Narrative: EXAM NARRATIVE: GEN:awake, alert, intermittent confusion, no acute distress CVS: S1S2 N RS: B/L LL crepts+ Abd: Soft, nt/nd , bs+ MISSILE MECHANIC: awake, alert, conversant EXT: lower extremity wrapped up, discharge continuing from extremities, surrounding cellulitis grossly improving Urinary Catheter Management^: Patino: Cath Placed During This Visit: yes Reason for Continuing Indwelling Catheter: Assist healing open wound Urinary Catheter Date of Insertion: 01/30/20 Urinary Catheter Time of Insertion: 13:46 Data : 02/01/20 04:38 02/01/20 04:38 Micro: Microbiology 01/30/20 12:49 Blood Culture - Preliminary Blood NEGATIVE TO DATE 01/30/20 12:53 Blood Culture - Preliminary Blood NEGATIVE TO DATE A&P Assessment and plan (1) Sepsis: Status: Acute (2) Sepsis associated hypotension: Status: Acute (3) Acute kidney injury: Status: Acute (4) Cellulitis of left leg: Status: Acute (5) Atrial fibrillation: Status: Acute (6) Sleep apnea: Status: Acute (7) Vascular dementia: Status: Acute (8) Type 2 diabetes mellitus: Status: Acute (9) Hypothyroidism: Status: Acute (10) Leg ulcer, left: Status: Acute (11) COPD (chronic obstructive pulmonary disease): Status: Acute (12) Elevated troponin: Status: Acute Additional A&P Information # Sepsis: meets criteria with tachycardia, leukocytosis, fever, infective focus by way of cellulitis with end organ dysfunction by way of PERRY and hypotension Sepsis resolved now D/c IVF as clincially appears to be fluid overloaded today renal function improving Recent h/o group B strep septicemia with septic shock requiring admission at [place] 12/2019, source thought to be LE cellulitis, s/p iv vancomycin + cefdinir, stopped one week ago Wound cx per report with pseudomonas and MRSA additionally at the time Prior to that admitted at [facility], details unknown Blood cx sent , currently negative to date empiric Zosyn + vanco for now to continue # Afib with RVR, likely as a result of sepsis , rate controlled now Troponin elevated with negative 2 hr delta, likely as a result of afib vs type [address] [place]-T changes on EKG currently Hold off on a/c for now given that patient is noted to have bleeding at the wound site and also with a hemoglobin of 8.7. Will increase aspirin to 325 mg daily upon discharge. # PERRY likely from sepsis Patino, I/o strictly, fluids as above, improving cr # troponin leak as above, Echo with preserved EF, technically difficult study # LE cellilitis: abx as above. Evolving color changes over LLE today,arterial duplex with Features of total occlusion of the posterior tibial artery with collateral filling in the dorsalis pedis artery. Markedly diminished resting TBI on the left side, suggestive of severe peripheral arterial disease, explaining poor wound healing. Above findings discussed with patient and son. Holding off on angiogram and CTA for now given that patient just recovering from PERRY with high risk of MAX. This overall corelated with a poor prognosis and possibilties may include limb ischemia, gangrene. Son acknowledges understanding. Patient to follow with wound care upon discharge for complex wound # LE chronic ulcers in the setting of lymphedema : local wound care , wet to dry dressing # COPD, not currently exacerbated: duoneb and budesonide scheduled nebulization BiPAP if needed. Doesn't usually use at facility # DM: insulin sliding scale # improved mentation, resume remeron and venlafaxine today, monitor closely, pupils B/L NSNR, moving upper extremities, CT head if no improvement in mental status # wound care: daily wet to dry dressings DNR/DNI dvt ppx: heparin Attestations Medical Necessity Statement*: ongoing cellulitis, severe peripheral vascular d isease, close monitoring for development of gangrene Coding Level of Care Code Acute Mineral Engineer for [facility] Fwd Diagnoses Sepsis A41.9 Sepsis associated hypotension A41.9; I95.9 Acute kidney injury N17.9 Cellulitis of left leg L03.116 Atrial fibrillation I48.91 Sleep apnea G47.30 Vascular dementia F01.50 Type 2 diabetes mellitus E11.9 Hypothyroidism E03.9 Leg ulcer, left L97.929 COPD (chronic obstructive pulmonary disease) J44.9 Elevated troponin R79.89
--- NOTE | 2020-02-01 16:06 | PC.NURSE ---
Refused to weat her Oxygen right now. Educated and informed pt regarding the order for O2. And told her we need to put it back on, she said, not right now.
[2020-02-01] MEDS: acetaminophen 325 mg Tablet 650 MG PO (16:14)
[2020-02-01] MEDS: FUROsemide 10 mg/mL SDV 4mL 40 MG IVP (16:14)
--- NOTE | 2020-02-01 16:26 | PC.NURSE ---
Pt frequently press the call lights Attended to her calls and when asked what she needs, she stated, I'm just playing around with it. call light in reach. bed alarm reset. reoriented and redirected pt. Tylenol and Dilaudid has been given for subjective pain on her left leg.
[2020-02-01 17:12] LABS: Glucose Point of Care 103 mg/dL (70-110)
[2020-02-01] MEDS: mirtazapine 15 mg Tablet 45 MG PO (20:32)
[2020-02-01 20:35] LABS: Glucose Point of Care 114 mg/dL (70-110)
[2020-02-02] VITALS (12 sets, daily range): BP systolic 125–152; BP diastolic 73–83; PULSE 81–104; RESP 18; TEMP 36.4–37; O2SAT 94–98; BMI 46.0
[2020-02-02] MEDS: ipratropium-albuterol 3 mL Neb INHALATION (02:44)
[2020-02-02] MEDS: piperacillin-tazobactam 3.375 GM in sodium chloride 0.9% (plus) 50 ML IV (04:46)
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
[2020-02-02 06:40] LABS: Glucose Point of Care 86 mg/dL (70-110)
--- NOTE | 2020-02-02 06:50 | PC.NURSE ---
DOCTOR WAS NOTIFIED OF PT BEHAVIORS. PT TRYING TO GET OUT OF BED. DR RODARTE SAID IT WAS OK TO LEAVE IV OUT AND TO GIVE 10MG OF ZYPREXA IM. WILL CONTINUE TO MONITOR.
[2020-02-02] MEDS: OLANZapine 10 mg VIAL IM (06:58)
[2020-02-02] MEDS: atorvastatin 40 mg Tablet 20 MG PO (09:34)
[2020-02-02] MEDS: heparin 5,000 unit/mL INJ 1 mL 5000 UNIT SUBCUT (09:34)
[2020-02-02] MEDS: aspirin 81 mg EC Tablet PO (09:35)
[2020-02-02] MEDS: nystatin powder 15 gm Btl 1 APPLIC TOPICAL (09:35)
[2020-02-02] MEDS: levothyroxine 125 mcg Tablet PO (09:35)
[2020-02-02] MEDS: metoprolol tartrate 50 mg Tablet 100 MG PO (09:35)
[2020-02-02] MEDS: pantoprazole DR 40 mg Tablet PO (09:38)
[2020-02-02] MEDS: ARIPiprazole 10 mg Tablet 5 MG PO (09:49)
[2020-02-02 11:15] LABS: Glucose Point of Care 113 mg/dL (70-110)
[2020-02-02] MEDS: acetaminophen 325 mg Tablet 650 MG PO (11:20)
--- NOTE | 2020-02-02 11:24 | PC.SOCIAL ---
IMM Update Pg 2 of IMM updated. Initialied, dated, and timed and placed in chart. Copy provided to patient.
--- NOTE | 2020-02-02 11:34 | PC.NURSE ---
Pt stated she is okay going back to [facility]. She stated, I don't like it but I'm okay going. They are all the same. I made a lot of friends there. I asked her where and she said, at [facility].
--- NOTE | 2020-02-02 12:04 | PC.NURSE ---
Medication Informed pt that there is an order for a nystatin swish and swallow to be taken now. Pt stated, not right now. I told her the first dose is now. She wants to wait and sit aside the medication on her bedside table. Will monitor.
--- NOTE | 2020-02-02 13:07 | PC.NURSE ---
pT HAS BEEN SLEEPING STILL
--- NOTE | 2020-02-02 13:45 | PM.DCS ---
Discharge Providers Date of Admission: 01/30/20 15:10 Date of Discharge: February 02, 2020 Attending Provider at Admission: Niurka Miramontes MD Attending Provider at Discharge: Niurka Miramontes MD Primary Care Provider: Huang Herrera MD, [facility] Diagnoses at Discharge Discharge Diagnosis (1) Sepsis: Status: Acute (2) Sepsis associated hypotension: Status: Acute (3) Acute kidney injury: Status: Acute (4) Cellulitis of left leg: Status: Acute (5) Atrial fibrillation: Status: Acute (6) Sleep apnea: Status: Acute (7) Vascular dementia: Status: Acute (8) Type 2 diabetes mellitus: Status: Acute (9) Hypothyroidism: Status: Acute (10) Leg ulcer, left: Status: Acute (11) COPD (chronic obstructive pulmonary disease): Status: Acute (12) Elevated troponin: Status: Acute Reason for Visit Reason for Visit: Reason For Visit: HYPOTENSION Hospital Course Discharge Summary: Leatha Emery is a 69 year old female with a past medical history of CAD, vascular dementia. Hypertension, CKD, GALA, asthma, diabetes, chronic lower extremity cellulitis, edema in bilateral lower extremities with history of frequent admissions at [facility] after being admitted there to the ICU for management of severe sepsis with septic shock found to be secondary to bilateral lower extremity cellulitis. She also had acute metabolic encephalopathy, hypokalemia, PERRY and acute respiratory failure with hypoxia at the time. It appears she underwent debridement at bedside for lower extremity cellulitis and necrotic wound on January 06 by surgical team there. He was initially on vasopressors for a little bit and then improved. Her PERRY also improved reportedly. Blood cultures from January 06 had returned positive for Streptococcus pyogenes. Wound cultures from January 06 also showed positive for Streptococcus. She returned to the [facility] after being noted to have a fever of 100.7. She was additionally hypotensive with SBP in the 80s at the longterm and remained hypotensive upon presentation into the ER. She needed to be admitted to the ICU initially for hypotension, however this recovered with IV hydration alone. Labs were notable for PERRY, elevated troponin greater than 100 however with serially negative delta dose, atrial fibrillation with RVR which was also noted on the recent admission, leukocytosis of 13.9. Her wound had reportedly been getting worse more recently and noted to have a foul-smelling greenish discharge. During the course of admission here she had a low-grade fever of 99.8, however has otherwise remained afebrile. Details of the admission and plan is as below: # Sepsis: met criteria with tachycardia, leukocytosis, fever, infective focus by way of cellulitis with end organ dysfunction by way of PERRY and hypotension Sepsis resolved now. Her leukocytosis has resolved, she has no further fevers. Initially she was required supplemental O2, however for the last 2 days has remained on room air and maintaining O2 sats above 95%. Her PERRY and hypotension have both resolved. She remained hemodynamically stable thereafter. Her cellulitis has grossly improved, though her chronic wounds continue to appear necrotic. She received IV treatment empirically with Zosyn and vancomycin after which her cellulitis has grossly improved. This is been transitioned to ciprofloxacin and doxycycline upon discharge. Blood cx remain negative during the course of admission. Echocardiogram was also done because of recent streptococcal bacteremia at [facility], however this did not find any evidence of vegetations. Most likely source of recurrent sepsis is chronic lower extremity cellulitis # Afib with RVR, likely as a result of sepsis , rate controlled now Troponin elevated with negative serial delta's delta, likely as a result of afib. No ST-T changes on EKG , no complaints of chest pain, doubt ACS Hold off on a/c for now given that patient is noted to have bleeding at the wound site and also with a hemoglobin of 8.7. Will increase aspirin to 325 mg daily upon discharge. # PERRY likely from sepsis Patino, left in place because of urinary retention Improved back to baseline at the time of discharge # troponin leak as above, Echo with preserved EF, technically difficult study # LE cellilitis: abx as above. Due to chronicity of her wound and evolving color changes over her foot and concern for developing gangrene, patient underwent an arterial Doppler of her lower extremity which showed occlusion of the posterior tibial artery with collateral filling in the dorsalis pedis artery. Markedly diminished resting TBI on the left side, suggestive of severe peripheral arterial disease, explaining poor wound healing. Above findings discussed with patient and son Hugo in great detail very frankly.. Holding off on angiogram and CTA for now given that patient just recovering from PERRY with high risk of MAX. This will likely need to be readdressed as an outpatient. Tthis overall corelated with a poor prognosis and possibilties may include limb ischemia, gangrene and possibly amputation as well down the line. Son acknowledges understanding. Patient to follow with wound care with Dr. Winters upon discharge for complex wound wound care with evidence of vascular compromise. I did discuss with her son that she will be discharged on antibiotics for now until she can follow-up with wound care, however I am not optimistic about antibiotics alone be able to improve her lower extremity ulceration. # LE chronic ulcers in the setting of lymphedema and peripheral artery disease: local wound care , daily dressing with silver alginate dressing. Wound care set up as above. #Vascular dementia: On day of admission patient had received pain medication by way of morphine and also perhaps had some component of metabolic encephalopathy because of which she was more somnolent 2 days ago. Because of this her mirtazapine and venlafaxine were placed on hold and are being resumed upon discharge. Patient is noted to have some sundowning and some hallucinations wherein she is able to talk to and see her in the room. I did reach out to the RN teller supervisor at [facility], who confirmed that patient at baseline has mixed days wherein she is confused and disoriented on some days, and is completely lucid on others. She is also followed at the behavioral health clinic for behavioral disturbances. This was discussed with her son Hugo, who had concerns about discharge because of the above said hallucinations. After reassuring that her symptoms seem consistent with underlying dementia, perhaps with some added component of hospital delirium, getting her back to her usual surroundings might be the best option for her at this time. Patient was otherwise completely appropriate in her conversations with me. For instance when I went into her room to change her dressings, she was able to clearly state how she wants to be positioned, how she wants her foot resting on a pillow, and she would like me to expedite the dressing so she can stop being in pain etc. She was also able to correctly state for me her name age date of and her location as being at [facility] and [place] at this time. She also knew she usually resides at [facility]. # COPD, not currently exacerbated: duoneb and budesonide scheduled nebulization # DM: insulin sliding scale #Urinary retention: She is being discharged with Patino in place for now. This will need to be either changed or removed at the longterm. DNR/DNI dvt ppx: heparin Physical Exam Narrative: EXAM NARRATIVE: GEN: Awake, alert and oriented, exhibits some confusion, but stating that she had just conversed on the phone with her . CVS: S1S2 N RS: CTA B/L Abd: Soft, nt/nd , bs+ PACKAGE WRAPPER: no focal neuro deficits Extremities: Chronic lower extremity wounds over the back of left calf in particular and heel with eschar in place. These have currently been covered with silver alginate dressing. Follow-up is requested at wound care. Urinary Catheter Management^: Patino: Cath Placed During This Visit: yes Reason for Continuing Indwelling Catheter: Assist Healing of Perineal & Sacral Wounds- Incontinent Patients Urinary Catheter Date of Insertion: 01/30/20 Urinary Catheter Time of Insertion: 13:46 Discharge Data Data Completed and Pending: Completed Studies During Hospitalization Category Date Time Status XR chest 1V susan ble [id number] Stat Exams 01/30/20 14:03 [place] [id number] Rout ine Ultrasound 01/31/20 10:20 Completed CV echo complete* [id number] Routine Ultrasound 01/31/20 20:40 [place] [id number] Stat Ultrasound 01/30/20 12:35 Completed Pending at discharge Category Date Time Status Blood Culture Sta t Lab 01/30/20 12:49 Results Vancomycin Trough Routine Lab 02/03/20 09:00 Ordered Labs from last 24 hours 02/02/20 02/02/20 02/01/20 11:04 06:37 20:27 POC Glucose 113 86 114 02/01/20 17:09 POC Glucose 103 Vitals: Last Vital Signs Temp 98.6 F 02/02/20 12:00 Pulse 84 02/02/20 12:00 Resp 18 02/02/20 12:00 BP 125/73 02/02/20 12:00 Pulse Ox 94 02/02/20 12:00 Discharge Plan Discharge Patient Disposition: Xfer SNF Condition: Stable Prescriptions: New nystatin 100,000 unit/mL Suspension 500,000 unit PO QID 10 Days Qty: 200 RF: 0 ciprofloxacin HCl [Cipro] 500 mg tablet 500 mg PO BID 14 Days Qty: 28 RF: 0 doxycycline hyclate 100 mg capsule 100 mg PO BID 21 Days Qty: 42 RF: 0 Continued multivitamin Tablet 1 tab PO DAILY RF: 0 Lasix 40 mg Tablet 40 mg PO DAILY RF: 0 acetaminophen 325 mg Tablet 650 mg PO QID PRN (Reason: Pain) RF: 0 Miralax 17 gram Powder In Packet 17 g PO DAILY PRN (Reason: Constipation) RF: 0 metoprolol tartrate 100 mg Tablet 100 mg PO BID RF: 0 melatonin 3 mg Tablet 3 mg PO DAILY RF: 0 Milk of Magnesia 400 mg/5 mL Suspension 30 ml PO DAILY PRN (Reason: Constipation) RF: 0 calcium carbonate 500 mg calcium (1,250 mg) Tablet 500 mg PO DAILY RF: 0 oxycodone-acetaminophen 10-325 mg Tablet 1 tab PO Q4H PRN (Reason: Pain) RF: 0 oxycodone-acetaminophen 10-325 mg Tablet 1 tab PO DAILY RF: 0 trazodone 100 mg Tablet 200 mg PO DAILY RF: 0 bisacodyl 10 mg Suppository 10 mg HI DAILY PRN (Reason: Constipation) RF: 0 pantoprazole 40 mg Tablet,Delayed Release (Dr/Ec) 40 mg PO DAILY RF: 0 simvastatin 20 mg Tablet 20 mg PO DAILY RF: 0 levothyroxine 125 mcg Tablet 125 mcg PO DAILY RF: 0 mirtazapine 45 mg Tablet 45 mg PO DAILY RF: 0 nystatin 100,000 unit/gram Powder 1 applic TOPICAL BID RF: 0 fluticasone propionate 50 mcg/actuation [place],Suspension 2 spray INTRANASAL DAILY RF: 0 HySept 0.25 % Solution 1 applic TOPICAL BID RF: 0 aripiprazole 5 mg Tablet 5 mg PO BID RF: 0 senna 8.6 mg Capsule 8.6 mg PO BID RF: 0 venlafaxine 150 mg Tablet Extended Release 24hr 150 mg PO DAILY RF: 0 Toviaz 4 mg Tablet Extended Release 24 Hr 4 mg PO DAILY RF: 0 Tradjenta 5 mg Tablet 5 mg PO DAILY RF: 0 Farxiga 5 mg Tablet 5 mg PO DAILY RF: 0 Breo Ellipta 200-25 mcg/dose Blister With Device 1 inh INHALATION DAILY RF: 0 Changed aspirin 81 mg Tablet,Delayed Release (Dr/Ec) 325 mg PO DAILY Qty: 0 RF: 0 Held amlodipine 5 mg Tablet 5 mg PO DAILY RF: 0 Hold Instructions: Resume on 02/03/20. After checking blood pressure lisinopril 10 mg Tablet 10 mg PO DAILY RF: 0 Hold Instructions: Resume on 02/03/20. After checking blood pressure Discontinued cefdinir 300 mg Capsule 300 mg PO BID RF: 0 Discharge Orders: Discharge Order (Routine); Ordered 02/02/20 Ordered By: Niurka Miramontes Referrals: Huang Herrera MD, [facility] - WOUND CARE CLINIC, [Staff Physician] - 4-7 days (please see Dr. francis at wound care clinic for complexity of case- chronic LE ulceration with developing gangrene and evidence of poor perfusion. ) Discharge Diet: Usual diet Discharge Activity: Resume usual activity Activity Restrictions/Additional Instructions: daily wound dressing over lower extremities with silver alginate dressing and paint with betadine over any areas concerning for developing gangrene Discharge Attestations Time Spent in Discharge Care*: greater than 30 min Quality Metrics Clinical Quality Measures During this hospital stay, did patient experience: None Coding Level of Care Code Acute Bench Chemist for g Fwd Diagnoses Sepsis A41.9 Sepsis associated hypotension A41.9; I95.9 Acute kidney injury N17.9 Cellulitis of left leg L03.116 Atrial fibrillation I48.91 Sleep apnea G47.30 Vascular dementia F01.50 Type 2 diabetes mellitus E11.9 Hypothyroidism E03.9 Leg ulcer, left L97.929 COPD (chronic obstructive pulmonary disease) J44.9 Elevated troponin R79.89
[2020-02-02] MEDS: FUROsemide 40 mg Tablet PO (15:58)
[2020-02-02] MEDS: nystatin 100,000 unit/mL UDC 5 mL 500000 UNIT PO (15:58)
--- NOTE | 2020-02-02 16:23 | PC.NURSE ---
called SNF Talked to [facility] staff Olga. They want me to call them back in about 30 to 45 mins.
--- NOTE | 2020-02-02 17:02 | PC.NURSE ---
Discharge to SNF via ambulance Report called to SNF [facility] regarding her discharge orders. and ff-up appointments.
== END 2020-02-02 17:05 | disposition skilled nursing facility (03) | DRG 871 ==
LOC: ER 15:13 → MEDSURG 16:16 → ICU 18:24 → MEDSURG 01-31 14:31
PROVIDERS: Emergency Medicine; Admitting Provider Student in an Organized Health Care Education/Training Program; Emergency Provider Family Medicine; PCP Family Medicine; Visit Provider Student in an Organized Health Care Education/Training Program
DX: A41.9 Sepsis, unspecified organism (principal); G93.41 Metabolic encephalopathy; N17.9 Acute kidney failure, unspecified; L03.116 Cellulitis of left lower limb; L97.929 Non-pressure chronic ulcer of unspecified part of left lower leg with unspecified severity; E11.52 Type 2 diabetes mellitus with diabetic peripheral angiopathy with gangrene; I96 Gangrene, not elsewhere classified; I48.91 Unspecified atrial fibrillation; G47.33 Obstructive sleep apnea (adult) (pediatric); F01.50 Vascular dementia, unspecified severity, without behavioral disturbance, psychotic disturbance, mood disturbance, and anxiety; J44.9 Chronic obstructive pulmonary disease, unspecified; E03.9 Hypothyroidism, unspecified; I25.10 Atherosclerotic heart disease of native coronary artery without angina pectoris; I12.9 Hypertensive chronic kidney disease with stage 1 through stage 4 chronic kidney disease, or unspecified chronic kidney disease; N18.9 Chronic kidney disease, unspecified; E11.22 Type 2 diabetes mellitus with diabetic chronic kidney disease; I89.0 Lymphedema, not elsewhere classified; R33.9 Retention of urine, unspecified; Z66 Do not resuscitate; Z79.82 Long term (current) use of aspirin; E11.21 Type 2 diabetes mellitus with diabetic nephropathy
CPT/HCPCS: 12345; 36415; 36416; 51702; 71045; 80053; 80202; 81003; 82962; 83605; 83735; 84484; 85025; 87040; 93005; 93306; 93926; 93970; 94640; 94664; 96372; 96375; 99283; J1644; J1940; J2060; J2270; J2543; J3370; J3490; J7030; J7050; J7626

== ENCOUNTER 2020-02-07 08:06 | Outpatient (CLI) | payer MEDICARE, MEDICAID, SELFPAY | END 2020-02-07 08:07 | disposition home or self-care (01) | LOC: WOUND 08:08 | PROVIDERS: PCP Family Medicine; Visit Provider Surgery | DX: E11.622 Type 2 diabetes mellitus with other skin ulcer (principal); L97.822 Non-pressure chronic ulcer of other part of left lower leg with fat layer exposed; L97.322 Non-pressure chronic ulcer of left ankle with fat layer exposed; E11.621 Type 2 diabetes mellitus with foot ulcer; L97.429 Non-pressure chronic ulcer of left heel and midfoot with unspecified severity | CPT/HCPCS: 11042; 11045; G0463; L4397 ==

== ENCOUNTER 2020-02-14 16:13 | Outpatient (CLI) | payer MEDICARE, MEDICAID, SELFPAY | END 2020-02-14 16:14 | disposition home or self-care (01) | LOC: WOUND 16:14 | PROVIDERS: PCP Family Medicine; Visit Provider Surgery | DX: I73.9 Peripheral vascular disease, unspecified (principal); L97.822 Non-pressure chronic ulcer of other part of left lower leg with fat layer exposed; L97.322 Non-pressure chronic ulcer of left ankle with fat layer exposed; L97.429 Non-pressure chronic ulcer of left heel and midfoot with unspecified severity | CPT/HCPCS: 11042; 11045 ==

== ENCOUNTER 2020-02-21 15:21 | Outpatient (RCR) | payer MEDICARE, MEDICAID, SELFPAY | END 2020-02-23 23:59 | disposition home or self-care (01) | LOC: WOUND 15:21 | PROVIDERS: PCP Family Medicine; Visit Provider Surgery | DX: E11.622 Type 2 diabetes mellitus with other skin ulcer (principal); L97.822 Non-pressure chronic ulcer of other part of left lower leg with fat layer exposed; L97.422 Non-pressure chronic ulcer of left heel and midfoot with fat layer exposed; E11.621 Type 2 diabetes mellitus with foot ulcer; L97.322 Non-pressure chronic ulcer of left ankle with fat layer exposed | CPT/HCPCS: 11042; 11045 ==

== ENCOUNTER 2020-02-28 15:17 | Outpatient (CLI) | payer MEDICARE, MEDICAID, SELFPAY | END 2020-02-28 15:18 | disposition home or self-care (01) | LOC: WOUND 15:18 | PROVIDERS: PCP Family Medicine; Visit Provider Surgery | DX: I73.9 Peripheral vascular disease, unspecified (principal); L97.822 Non-pressure chronic ulcer of other part of left lower leg with fat layer exposed; L97.322 Non-pressure chronic ulcer of left ankle with fat layer exposed; E11.621 Type 2 diabetes mellitus with foot ulcer; L97.425 Non-pressure chronic ulcer of left heel and midfoot with muscle involvement without evidence of necrosis | CPT/HCPCS: 11042; 11043; 11045 ==

== ENCOUNTER 2020-03-06 15:08 | Outpatient (CLI) | payer MEDICARE, MEDICAID, SELFPAY | END 2020-03-06 15:09 | disposition home or self-care (01) | LOC: WOUND 15:15 | PROVIDERS: PCP Family Medicine; Visit Provider Surgery | DX: E11.622 Type 2 diabetes mellitus with other skin ulcer (principal); L97.822 Non-pressure chronic ulcer of other part of left lower leg with fat layer exposed; L97.322 Non-pressure chronic ulcer of left ankle with fat layer exposed; E11.621 Type 2 diabetes mellitus with foot ulcer; L97.422 Non-pressure chronic ulcer of left heel and midfoot with fat layer exposed | CPT/HCPCS: 11042; 11043; 11045 ==

== ENCOUNTER 2020-03-13 09:10 | Outpatient (CLI) | payer MEDICARE, MEDICAID, SELFPAY ==
--- NOTE | 2020-03-13 09:00 | CT_ITS ---
WS: [id number] CT angio abd aorta runof [id number] REASON FOR EXAM: pvd TECHNIQUE: Coronal and sagittal 2-D and MIP reformations. IV CONTRAST ADMINISTERED: Omnipaque 300, 95 mL. TOTAL EXAM DLP: All CT scans at [facility] use at least one of these dose optimization techniques: automat ed exposure control; mA and/or kV adjustment per patient size (includes targeted exams where dose is matched to clinical indication); or iterative reconstruction. FINDINGS: A large hiatal hernia is noted. After contrast was given the liver shows normal enhancement. A contracted gallbladder is evident. The spleen appeared to be normal. The stomach showed no definite filling defects other than the large hiatal hernia. The pancreas shows atrophic changes no masses. The right and left adrenal glands appear to be normal. Both the right and left kidneys were of normal size showed normal excretory changes no stones no mass es. The right colon was normal. In the midline of the abdomen there is thin-walled present but no definite hernias are seen. The descending colon was normal. The aorta inferior vena cava iliac arteries are all normal alignment no obstruction. In the pelvis the urinary bladder was normal. Fecal stasis in the rectum is seen the uterus is not ob served. Miff images of the abdomen upper extremity show normal appearance of both femoral arteries and the donovan perficial femorals are well seen and there is left side shows heavy arteriosclerotic plaque throughou t the superficial femoral as well as the right and left side. This extends down to the knee. Definite obstruction is not seen. At the knee there is evidence of total knee replacement. No soft tissue lesions are seen in the thigh or lower extremity. In the knee there is normal bifurcat ion is vessels extending inferiorly. In the region of the mid anterior tibial there is stenotic plaque formation flow does occur below thi s level. This is seen on the right side. On the left side similar findings are noted. CT/CT angio abd aorta runof [id number] IMPRESSION: Large hiatal hernia. The arterial supply in the abdomen showed heavy arteriosclerotic changes. The arterial supply in the upper thighs was normal. The mid anterior femoral arteries bilaterally show considerable plaque formatio n this extends below the knees and involves the anterior posterior tibial vesse ls which showed considerable plaque and narrowing. Fine definite obstructive ch anges are not seen.
[2020-03-13] MEDS: iodixanol 320 mg/mL 100mL Btl IV (09:55)
== END 2020-03-13 09:11 | disposition home or self-care (01) ==
PROVIDERS: PCP Family Medicine; Visit Provider Thoracic Surgery (Cardiothoracic Vascular Surgery)
DX: I73.9 Peripheral vascular disease, unspecified (principal); K44.9 Diaphragmatic hernia without obstruction or gangrene
CPT/HCPCS: 75635; Q9967

== ENCOUNTER 2020-03-13 15:34 | Outpatient (CLI) | payer MEDICARE, MEDICAID, SELFPAY | END 2020-03-13 15:35 | disposition home or self-care (01) | LOC: WOUND 15:38 | PROVIDERS: PCP Family Medicine; Visit Provider Surgery | DX: E11.622 Type 2 diabetes mellitus with other skin ulcer (principal); L97.822 Non-pressure chronic ulcer of other part of left lower leg with fat layer exposed; L97.322 Non-pressure chronic ulcer of left ankle with fat layer exposed; E11.621 Type 2 diabetes mellitus with foot ulcer; L97.422 Non-pressure chronic ulcer of left heel and midfoot with fat layer exposed | CPT/HCPCS: 11042; 11043; 11045; 75635; Q9967 ==

== ENCOUNTER 2020-03-20 13:50 | Outpatient (CLI) | payer MEDICARE, MEDICAID, SELFPAY | END 2020-03-20 13:51 | disposition home or self-care (01) | LOC: WOUND 13:51 | PROVIDERS: PCP Family Medicine; Visit Provider Surgery | DX: E11.622 Type 2 diabetes mellitus with other skin ulcer (principal); L97.822 Non-pressure chronic ulcer of other part of left lower leg with fat layer exposed; L97.322 Non-pressure chronic ulcer of left ankle with fat layer exposed; E11.621 Type 2 diabetes mellitus with foot ulcer; L97.422 Non-pressure chronic ulcer of left heel and midfoot with fat layer exposed | CPT/HCPCS: 11042; 11045 ==

== ENCOUNTER 2020-04-03 15:06 | Outpatient (CLI) | payer MEDICARE, MEDICAID, SELFPAY | END 2020-04-03 15:07 | disposition home or self-care (01) | LOC: WOUND 15:10 | PROVIDERS: PCP Family Medicine; Visit Provider Surgery | DX: I73.9 Peripheral vascular disease, unspecified (principal); L97.822 Non-pressure chronic ulcer of other part of left lower leg with fat layer exposed; E11.621 Type 2 diabetes mellitus with foot ulcer; L97.422 Non-pressure chronic ulcer of left heel and midfoot with fat layer exposed; I89.0 Lymphedema, not elsewhere classified; L97.812 Non-pressure chronic ulcer of other part of right lower leg with fat layer exposed | CPT/HCPCS: 11042; 11045 ==

== ENCOUNTER 2020-04-10 14:58 | Outpatient (CLI) | payer MEDICARE, MEDICAID, SELFPAY | END 2020-04-10 14:59 | disposition home or self-care (01) | LOC: WOUND 14:59 | PROVIDERS: PCP Family Medicine; Visit Provider Surgery | DX: I73.9 Peripheral vascular disease, unspecified (principal); L97.822 Non-pressure chronic ulcer of other part of left lower leg with fat layer exposed; L97.322 Non-pressure chronic ulcer of left ankle with fat layer exposed; E11.621 Type 2 diabetes mellitus with foot ulcer; L97.422 Non-pressure chronic ulcer of left heel and midfoot with fat layer exposed; I89.0 Lymphedema, not elsewhere classified; I87.2 Venous insufficiency (chronic) (peripheral); L97.812 Non-pressure chronic ulcer of other part of right lower leg with fat layer exposed | CPT/HCPCS: 11042; 11045 ==

== ENCOUNTER 2020-04-15 15:56 | Inpatient (IN) | payer MEDICARE, MEDICAID, SELFPAY ==
[2020-04-15 15:58] VITALS: BP 91/55; PULSE 96; RESP 18; TEMP 36.7; BMI 35.9
--- NOTE | 2020-04-15 16:00 | W.ED.GENADLT ---
HPI - General Adult General: Chief complaint: Recheck/Abnormal Lab/Rx Stated complaint: CRITICALLY HIGH POTASSIUM Time Seen by Provider: 04/15/20 15:59 History of Present Illness: HPI narrative: 69-year-old female comes in from [facility]. She had a routine labs done today her potassium was reported scale put 0. She denies any problems she says she was diagnosed with pneumonia yesterday she is not having any difficulty breathing her oxygen sat is 97 to 99% on room air she does state her legs hurt she has ulcers on her legs that are being treated by the nursing staff at the correction as well as by the wound care clinic. She does have a history of kidney problems related to type 2 diabetes mellitus. MD complaint: Elevated potassium Onset (ago): hour(s) Severity: moderate Associated symptoms: Reports no associated symptoms; Deny chest pain, dyspnea, malaise, nausea, rash or vomiting Treatments prior to arrival: none Review of Systems Const: Denies: fever(s), chills, body aches, change in appetite, fatigue or malaise ENMT: Denies: throat pain, ear or mastoid pain, nasal discharge or nasal congestion Card: Denies: chest pain, edema, dyspnea on exertion or orthopnea Resp: Denies: dyspnea, productive cough or non-productive cough GI: Denies: abdominal pain, nausea, vomiting, hematemesis, coffee ground emesis, diarrhea, constipation, bloating, hematochezia or melena : Denies: flank pain, difficulty voiding, dysuria, urinary frequency or urinary urgency Skin/Breast: Denies: rash or pruritus PFSH ED PFSH: Medical History Chronic kidney disease, stage 3 COPD (chronic obstructive pulmonary disease) Diabetic nephropathy Hypertension Hypothyroidism Leg ulcer, left PVD (peripheral vascular disease) Sleep apnea Type 2 diabetes mellitus Vascular dementia Surgical History History of bilateral knee arthroplasty S/P breast lumpectomy Family History Father Diabetes Hypertension Mother CAD (coronary artery disease) Hypertension Social History Smoking and tobacco status: never smoked Alcohol intake: never Household members: other 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 Current gender identity: Female Additional social history: [place] [facility] [place] Exam Const: COMMON NORMALS: no acute distress GENERAL APPEARANCE: cooperative and comfortable ORIENTATION/CONSCIOUSNESS: Yes awake, Yes oriented to person, Yes oriented to place and Yes oriented to time HENMT: COMMON NORMALS: normocephalic and atraumatic HEAD & SCALP: normocephalic and atraumatic Eye: COMMON NORMALS: Equal, round and reactive pupils present, EOMs intact bilaterally, conjunctivae normal and no scleral icterus CONJUNCTIVA: Yes conjunctivae normal PUPIL: Yes Equal, round and reactive pupils present Neck/C-Spine: COMMON NORMALS: full ROM, no lymphadenopathy, supple and no JVD Lymph: LYMPHATIC: no lymphadenopathy noted and no lymphedema noted Resp: COMMON NORMALS: normal respiratory effort, No retractions, No use of accessory muscles and clear to auscultation bilaterally AUSCULTATION: clear to auscultation bilaterally Cardio: COMMON NORMALS: no JVD, regular rate, regular rhythm and No murmurs present (Cardio) RATE: regular rate RHYTHM: regular rhythm GI: COMMON NORMALS: Soft to palpation and No hepatosplenomegaly present AUSCULTATION: Yes normoactive bowel sounds PALPATION: Yes Soft to palpation, No Tenderness to palpation present (GI), No Guarding due to palpation present (GI) and Yes No hepatosplenomegaly present Extremity: NARRATIVE EXTREMITY EXAM: Diabetic leg ulcers wrapped bilaterally in the lower extremities. Neuro: SENSORIUM/ORIENTATION: Yes oriented to person, Yes oriented to place and Yes oriented to time Course Vital Signs: Vital signs: Vital Signs Temperature 99.9 F H 04/16/20 16:00 Pulse Rate 109 H 04/17/20 04:00 Respiratory Rate 15 04/17/20 04:50 Blood Pressure 122/66 04/17/20 04:00 Pulse Oximetry 97 04/17/20 04:00 MDM - General Adult MDM Narrative: Medical decision making narrative: Patient is awake and alert has acute kidney injury and hyperkalemia started on appropriate medications. Nephrology consulted. Dr. Wilkerson is already seen patient to be at [facility]. Dr. Barahona will be the admitting she will require ICU level of care due to her hyperkalemia renal failure as well as high level of needs for redirecting while in the emergency room we are constantly having to redirect her to keep her from crawling out of bed. Lab Data: Labs: Lab Results 04/15/20 04/15/20 04/15/20 Range/Units 02:20 16:10 16:10 WBC 14.4 H (4.0-10.0) 10^3/ uL RBC 3.67 L (4.1-5.3) 10^6/u L Hgb 10.7 L (11.5-15.3) g/dL Hct 34.7 L (37.0-47.0) % MCV 94.6 (81-99) fL MCH 29.2 (28.0-34.0) pg MCHC 30.8 (30.0-36.0) g/dL RDW 17.0 H (12.1-15.1) % Plt Count 483 H (130-400) 10^3/c mm MPV 9.0 (7.4-10.4) fL Neut % (Auto) 60.9 % Lymph % (Auto) 21.8 % [place] % (Auto) 10.5 % Eos % (Auto) 6.4 % Baso % (Auto) 0.1 % Neut # (Auto) 8.75 H (1.8-7.7) 10^3/u L Lymph # (Auto) 3.2 (0.8-4.8) 10^3/u L [place] # (Auto) 1.5 H (0.2-0.9) 10^3/u L Eos # (Auto) 0.9 H (0.0-0.8) 10^3/u L Baso # (Auto) 0.0 (0.0-0.1) 10^3/u L Nucleated RBC % (a uto) 0 % Nucleated RBCs # 0.0 /100WBC Sodium 135 L (136-145) mmol/L Potassium 6.9 H* (3.5-5.1) mmol/L Chloride 100 (98-107) mmol/L Carbon Dioxide 20 L (22-29) mmol/L Anion Gap 21.9 H (5-19) BUN 102 H* D (8-23) mg/dL Creatinine 4.9 H (0.5-0.9) mg/dL GFR Calculation Not Reportable Glucose 91 (65-115) mg/dL Calculated Osmolal ity 281 L (285-295) mOsm/k g Calcium 9.7 (8.5-10.5) mg/dL Total Bilirubin 0.3 (0.15-1.2) mg/dL AST 13 (0-32) U/L ALT 10 (0-33) U/L Alkaline Phosphata se 132 H (35-105) IU/L Creatine Kinase 102 (26-192) U/L Total Protein 7.0 (6.6-8.7) g/dL Albumin 3.2 L (3.5-5.2) g/dL Globulin 3.8 (1.3-4.6) g/dL Lipase 11 L (13-60) U/L TSH (0.27-4.20) uIU/ mL Urine Color (Yellow) Urine Appearance (CLEAR) Urine pH (5-7) Ur Specific Gravit y (1.005-1.030) Urine Protein (Negative) Urine Glucose (UA) (Normal) Urine Ketones (Negative) Urine Blood (Negative) Urine Nitrate (Negative) Urine Bilirubin (NEGATIVE) Urine Urobilinogen (Negative) mg/dL Ur Leukocyte Ruma ase (Negative) Urine RBC (0-2) /hpf Urine WBC (0-5) /hpf Ur Squamous Epith Cells (0-5) Amorphous Sediment Urine Bacteria (NONE) Ur Random Sodium 26 mmol/L Ur Random Potassiu m 57 mmol/L Ur Random Chloride 16 mmol/L Hepatitis C Antibo dy (Nonreactive) 04/15/20 04/15/20 04/15/20 Range/Units 16:10 16:10 16:45 WBC (4.0-10.0) 10^3/ uL RBC (4.1-5.3) 10^6/u L Hgb (11.5-15.3) g/dL Hct (37.0-47.0) % MCV (81-99) fL MCH (28.0-34.0) pg MCHC (30.0-36.0) g/dL RDW (12.1-15.1) % Plt Count (130-400) 10^3/c mm MPV (7.4-10.4) fL Neut % (Auto) % Lymph % (Auto) % Yuma % (Auto) % Eos % (Auto) % Baso % (Auto) % Neut # (Auto) (1.8-7.7) 10^3/u L Lymph # (Auto) (0.8-4.8) 10^3/u L [place]uma # (Auto) (0.2-0.9) 10^3/u L Eos # (Auto) (0.0-0.8) 10^3/u L Baso # (Auto) (0.0-0.1) 10^3/u L Nucleated RBC % (a uto) % Nucleated RBCs # /100WBC Sodium (136-145) mmol/L Potassium (3.5-5.1) mmol/L Chloride (98-107) mmol/L Carbon Dioxide (22-29) mmol/L Anion Gap (5-19) BUN (8-23) mg/dL Creatinine (0.5-0.9) mg/dL GFR Calculation Glucose (65-115) mg/dL Calculated Osmolal ity (285-295) mOsm/k g Calcium (8.5-10.5) mg/dL Total Bilirubin (0.15-1.2) mg/dL AST (0-32) U/L ALT (0-33) U/L Alkaline Phosphata se (35-105) IU/L Creatine Kinase (26-192) U/L Total Protein (6.6-8.7) g/dL Albumin (3.5-5.2) g/dL Globulin (1.3-4.6) g/dL Lipase (13-60) U/L TSH 10.73 H (0.27-4.20) uIU/ mL Urine Color Yellow (Yellow) Urine Appearance Sl cloudy A (CLEAR) Urine pH 5 (5-7) Ur Specific Gravit y 1.020 (1.005-1.030) Urine Protein Neg (Negative) Urine Glucose (UA) Norm (Normal) Urine Ketones Negative (Negative) Urine Blood Neg (Negative) Urine Nitrate Negative (Negative) Urine Bilirubin 1+ H (NEGATIVE) Urine Urobilinogen Neg (Negative) mg/dL Ur Leukocyte Ruma ase 2+ H (Negative) Urine RBC 0-4 H (0-2) /hpf Urine WBC 40-55 H (0-5) /hpf Ur Squamous Epith Cells None (0-5) Amorphous Sediment Not Reportable Urine Bacteria 4+ H (NONE) Ur Random Sodium mmol/L Ur Random Potassiu m mmol/L Ur Random Chloride mmol/L Hepatitis C Antibo dy Non-reactive (Nonreactive) Discharge Plan Discharge Patient Disposition: Admitted As Inpatient Admit Provider: Milagros Mcpherson Clinical Impression: Acute kidney injury, Leg ulcer, left, Acute hyperkalemia COPD (chronic obstructive pulmonary disease) Qualifiers: COPD type: emphysema Emphysema type: unspecified Qualified Code(s): J43.9 - Emphysema, unspecified Hypertension Qualifiers: Hypertension type: essential hypertension Qualified Code(s): I10 - Essential (primary) hypertension Type 2 diabetes mellitus Qualifiers: Diabetes mellitus continuous churn buttermaker insulin use: without residential use Diabetes mellitus complication status: with other specified complication Qualified Code(s): E11.69 - Type 2 diabetes mellitus with other specified complication Condition: Stable Referrals: Huang Herrera MD, [facility] [Primary Care Provider] - Discharge Date/Time: 04/15/20 19:30 Coding Level of Care Code ED Interior Design Professor for Chg Fwd Exam Comprehensive
--- NOTE | 2020-04-15 16:01 | ECG_ITS ---
[facility] Test Date: 2020-04-15 Pat Name: Leatha Emery Department: Room: Gender: Female Project Mgr: : [id number] Requested By: Dirk Shah Order Number: [id number] Jacquie MD: Ruddy John M.D. Measurements Intervals Lerna Rate: 97 P: CA: -1 QRS: -3 QRSD: 92 T: -2 QT: 350 QTc: 447 Interpretive Statements ATRIAL FIBRILLATION LOW QRS VOLTAGE IN PRECORDIAL LEADS [QRS DEFLECTION < 1.0 mV IN CHEST LEADS] MINIMAL ST DEPRESSION [0.025+ mV ST DEPRESSION] ABNORMAL RHYTHM ECG Compared to ECG 01/30/2020 18:51:17 Low QRS voltage now present ST (T wave) deviation now present T-wave abnormality no longer present Electronically Signed On 04-15-2020 20:33:59 CDT by Ruddy John M.D. [id number] f
--- NOTE | 2020-04-15 16:01 | XRR_ITS ---
PROCEDURE INFORMATION: Exam: XR Chest, 1 View Exam date and time: 04/15/2020 4:21 PM Age: 69 years old Clinical indication: Cough and dyspnea; Additional info: Dyspnea/cough TECHNIQUE: Imaging protocol: XR of the chest Views: 1 view. COMPARISON: [place] XR chest 1V portable [id number] 01/30/2020 2:15 PM FINDINGS: Lungs: Low lung volumes otherwise Unremarkable. No consolidation. Pleural space: Unremarkable. No pleural effusion. No pneumothorax. Heart/Mediastinum: Unremarkable. No cardiomegaly. Bones/joints: Unremarkable. XR/XR chest 1V portable [id number] IMPRESSION: No acute findings.
[2020-04-15 16:18] LABS: Basophils % 0.1 %; Eosinophils # 0.9 10^3/uL (0.0-0.8); Eosinophils % 6.4 %; Hematocrit 34.7 % (37.0-47.0); Hemoglobin 10.7 g/dL (11.5-15.3); Lymphocytes # 3.2 10^3/uL (0.8-4.8); Lymphocytes % 21.8 %; Mean Corpuscular HGB Conc 30.8 g/dL (30.0-36.0); Mean Corpuscular Hemoglobin 29.2 pg (28.0-34.0); Mean Corpuscular Volume 94.6 fL (81-99); Monocytes # 1.5 10^3/uL (0.2-0.9); Monocytes % 10.5 %; Neutrophils # 8.75 10^3/uL (1.8-7.7); Neutrophils % 60.9 %; Nucleated Red Blood Cells % 0 %; Platelet Count 483 10^3/cmm (130-400); Red Blood Count 3.67 10^6/uL (4.1-5.3); White Blood Count 14.4 10^3/uL (4.0-10.0)
[2020-04-15 16:34] LABS: Alanine Aminotransferase 10 U/L (0-33); Albumin Level 3.2 g/dL (3.5-5.2); Alkaline Phosphatase 132 IU/L (35-105); Anion Gap 21.9 (5-19); Aspartate Amino Transferase 13 U/L (0-32); Calcium 9.7 mg/dL (8.5-10.5); Carbon Dioxide 20 mmol/L (22-29); Chloride 100 mmol/L (98-107); Creatine Phosphokinase 102 U/L (26-192); Globulin 3.8 g/dL (1.3-4.6); Glucose 91 mg/dL (65-115); Lipase 11 U/L (13-60); Osmolality Calculated 281 mOsm/kg (285-295); Sodium 135 mmol/L (136-145); Total Bilirubin 0.3 mg/dL (0.15-1.2)
[2020-04-15 16:46] LABS: Blood Urea Nitrogen 102 mg/dL (8-23); Potassium 6.9 mmol/L (3.5-5.1)
--- NOTE | 2020-04-15 16:56 | PM.CONSULT ---
Providers/Reason For Consult Consulting Physican/Specialty*: rolando field md telenephrology Reason for Consult*: PERRY and hyperkalemia Requesting Physcian: Dr. Alyssa Mcpherson Primary Care Provider: Huang Herrera MD, [facility] History of Present Illness History of Present Illness Leatha Emery is a 69 year old female [place] resident recently dx w/pna. had labs w/ PERRY and cr of 7 and sent to [facility]. In ER found to be hypotensive and tachycardic. given real and ivf and is urinating. renal called to evaluate h/o obesity, leg wounds, PERRY, PVD, htn, hypothyroidism, GALA, psych disease. Review of Systems General: Reports: 10 or more systems reviewed and unremarkable except in HPI and below Narrative: weak, poor appetite, fevers, cough, sob, nausea, dec uop, leg pain and swelling, poor hearing, periods of confusion Meds/Allergies Home Medications and Allergies Home Medications Medication Instructions Recorded Confirmed Last Taken Type Breo Ellipta 1 inh INHALATION DAILY 01/30/20 04/15/20 04/15/20 History Farxiga 5 mg PO DAILY 01/30/20 04/15/20 04/15/20 History Toviaz 4 mg PO DAILY 01/30/20 04/15/20 04/15/20 History Tradjenta 5 mg PO DAILY 01/30/20 04/15/20 04/15/20 History acetaminophen 650 mg PO QID PRN 01/30/20 04/15/20 01/29/20 History amlodipine 5 mg PO DAILY 01/30/20 04/15/20 04/15/20 History aripiprazole 5 mg PO BID 01/30/20 04/15/20 04/15/20 History bisacodyl 10 mg VT DAILY PRN 01/30/20 04/15/20 01/30/20 History calcium carbonate 500 mg PO DAILY 01/30/20 04/15/20 04/15/20 History fluticasone propionate 2 spray INTRANASAL DAILY 01/30/20 04/15/20 04/15/20 History furosemide [Lasix] 40 mg PO DAILY 01/30/20 04/15/20 04/15/20 History levothyroxine 125 mcg PO DAILY 01/30/20 04/15/20 04/15/20 History lisinopril 10 mg PO DAILY 01/30/20 04/15/20 04/15/20 History magnesium hydroxide [Milk of 30 ml PO DAILY PRN 01/30/20 04/15/20 01/29/20 History Magnesia] melatonin 5 mg PO DAILY 01/30/20 04/15/20 04/14/20 History metoprolol tartrate 100 mg PO BID 01/30/20 04/15/20 04/15/20 History mirtazapine 45 mg PO DAILY 01/30/20 04/15/20 04/15/20 History multivitamin 1 tab PO DAILY 01/30/20 04/15/20 04/15/20 History nystatin 1 applic TOPICAL BID 01/30/20 04/15/20 04/15/20 History oxycodone-acetaminophen 1 tab PO DAILY 01/30/20 04/15/20 04/15/20 History oxycodone-acetaminophen 1 tab PO Q4H PRN 01/30/20 04/15/20 04/14/20 History pantoprazole 40 mg PO DAILY 01/30/20 04/15/20 04/15/20 History polyethylene glycol 3350 [Miralax] 17 g PO DAILY PRN 01/30/20 04/15/20 01/30/20 History senna 8.6 mg PO BID 01/30/20 04/15/20 04/15/20 History simvastatin 20 mg PO DAILY 01/30/20 04/15/20 04/14/20 History trazodone 200 mg PO BEDTIME 01/30/20 04/15/20 04/14/20 History venlafaxine 150 mg PO DAILY 01/30/20 04/15/20 04/15/20 History amino acids-protein hydrolys 1 ea PO DAILY 04/15/20 04/15/20 04/15/20 History [Pro-Stat AWC] levofloxacin [Levaquin] 750 mg PO DAILY 04/15/20 04/15/20 04/14/20 History Allergies Allergy/AdvReac Type Severity Reaction Status Date / Time clarithromycin Allergy Unknown Unknown Verified 01/30/20 13:48 hydrocodone Allergy Unknown Unknown Verified 01/30/20 13:48 metformin Allergy Unknown Unknown Verified 01/30/20 13:48 sitagliptin [From Januvia] Allergy Unknown Unknown Verified 01/30/20 13:48 tetanus and diphtheria Allergy Unknown Unknown Verified 01/30/20 13:48 toxoids triamcinolone Allergy Unknown Unknown Verified 01/30/20 13:48 PFSH Acute PFSH: Medical History COPD (chronic obstructive pulmonary disease) Diabetic nephropathy Hypertension Hypothyroidism Leg ulcer, left Sleep apnea Type 2 diabetes mellitus Vascular dementia Surgical History History of bilateral knee arthroplasty S/P breast lumpectomy Family History Father Diabetes Hypertension Mother CAD (coronary artery disease) Hypertension Social History Smoking and tobacco status: never smoked Alcohol intake: never Household members: other Housing: [facility] Current gender identity: Female Vitals/I&O/Wt Last Vital Signs Temp 98.1 F 04/15/20 15:58 Pulse 96 04/15/20 15:58 Resp 18 04/15/20 15:58 BP 91/55 04/15/20 15:58 Weight last 48 hrs Weight 92.079 kg Physical Exam Narrative: EXAM NARRATIVE: obese, NARD, nc 02, sitting up in bed heent- nc/at, eomi neck supple lung rt crackles heart irreg +YANDY abd soft, nt, nd, +BS ext wrapped, edema, lesions that are weeping neuro-a,a, o x 2+ A&P Additional A&P Information 69 yr old female 1. likely pna- broad spectrum abx 2. hyperkalemia- on mariluz-i at rehab and DM -low k diet kayexalate, d50, reg insulin, ca -repeat chemistries in a few hrs -monitor on tele 3. PERRY- likely prerenal vs ATN -hold mariluz-i, arb, nsaid, siuretics -renal dose meds -real -renal us bicarb drip -monitor uop and chemistries- if does not improve soon- then will need HD -ua w/ 40-50 wbc and 4+ bact- f/u ur cx- getting abx discussed w/ hospitalist in detail Consult Attestations Medical Necessity Statement: perry, uti, Q PNA, hyperkalemia Time Spent in Patient Care: Greater than 35 minutes (>than 50% of time spent in counselling and/or direct pt care on unit). Coding Level of Care Code Acute Workers Compensation Specialist for Darek Ojeda
[2020-04-15 17:26] LABS: Glucose Urine UA Norm (Normal); Protein Urine Neg (Negative); Urine Color Yellow (Yellow); pH Urine 5 (5-7)
[2020-04-15 17:27] LABS: Add Urine Microscopic? YES; Bilirubin Urine 1+ (NEGATIVE); Blood Urine Neg (Negative); Ketones Urine Negative (Negative); Leukocyte Esterase Urine 2+ (Negative); Nitrate Urine Negative (Negative); Urobilinogen Urine Neg (Negative)
[2020-04-15 17:29] LABS: Add Urine Culture? Yes; Bacteria Urine 4+; RBC Urine 0-4 /hpf (0-2); WBC Urine 40-55 /hpf (0-5)
[2020-04-15] MEDS: calcium gluconate 0.1 gm/mL 10% SDV 10mL 2 GM IVP (18:21)
[2020-04-15] MEDS: dextrose 50% syringe 50 mL IVP (18:23)
[2020-04-15] MEDS: sodium polystyrene sulfonate 15 gm/60 mL Btl PO (18:24)
[2020-04-15] MEDS: sodium chloride 0.9% 1,000 ML 999 ML IV (18:25)
--- NOTE | 2020-04-15 18:31 | P.HP_ITS ---
Providers/Chief Complaint Admitting Physician: Milagros Mcpherson MD Primary Care Provider: Huang Herrera MD, [facility] Chief Complaint: CRITICALLY HIGH POTASSIUM History of Present Illness Leatha Emery is a 69 year old female who is a resident of [facility] presents following findings of abnormal potassium during labs done at the correction. Per correction staff patient had been noted to have some altered mental status following which she had work-up which included chest x-ray suggestive of developing mild left medial basilar infiltrates from report in the chart, urinalysis, labs. Based on chest x-ray report she was started on Levaquin. Patient was admitted at our facility in January during which time she was treated for sepsis secondary to bilateral lower extremity cellulitis. She has been noted to have chronic lower extremity ulcers for which she has been following up at the wound care clinic with Dr. Mathews. Due to noted abnormalities on arterial studies she was referred to Dr. Crews to determine if need for intervention. CTA aorta with runoff was ordered, reviewed in chart. Patient is encountered in the ER, shifting restlessly on stretcher as though she cannot quite get comfortable, requesting repeated repositioning of her left lower extremity for comfort. She is alert and oriented to self, place, time. Able to tell me that she has had some shortness of breath, chest discomfort and productive cough with yellow sputum for the past several days. She is inter mittently oxygen dependent. Has not spiked any fevers per correction vital signs, has had some issues with low normal blood pressure with most recent one prior to transfer to ER being 96/50. She has not had any COVID-19 testing done. Work-up reveals leukocytosis with a white count of 14.4, hemoglobin of 10.7, potassium of 6.9, BUN of 102, creatinine of 4.9, anion gap of 21.9, blood glucose of 91, ALP of 132 with otherwise normal LFTs. Urinalysis is indicative of infection. Chest x-ray here is unremarkable. She is in the process of receiving Kayexalate, calcium gluconate, insulin and D50 to help correct hyperkalemia. Dr. Wilkerson is currently assessing the patient at bedside. Per my discussion with him recommends IV fluid hydration as suspicion that dehydration is causing the renal impairment. She is somewhat hypotensive, currently on 2 L nasal cannula due to intermittent hypoxia, has had some tachycardia with heart rates going up into the 120s. Due to hemodynamic instability, acute renal failure and need for close monitoring of her renal function and hemodynamic status will admit to ICU for close monitoring. COVID- 19 testing ordered so will need isolation precautions. Review of Systems Const: Reports: fatigue; Denies: fever(s) or chills Eyes: Denies: change in vision ENMT: Reports: dry mouth Card: Reports: chest pain, edema (chronic LE edema), swelling of feet/ankles and dyspnea on exertion; Denies: lightheadedness Resp: Reports: productive cough (yellow sputum); Denies: dyspnea GI: Denies: abdominal pain, nausea, vomiting, hematemesis or hematochezia : Reports: urinary incontinence (intermittent); Denies: hematuria Musc: Reports: other (chronic LLE pain); Denies: back pain Skin/Breast: Reports: lesions (bilateral LE ulcers) Neuro: Reports: confusion (chronic, intermittent); Denies: numbness in extremities, weakness in extremities or frequent falls Psych: Denies: anxiety Medications/Allergies Home Medications Medication Instructions Recorded Confirmed Last Taken Type Breo Ellipta 1 inh INHALATION DAILY 01/30/20 04/15/20 04/15/20 History Farxiga 5 mg PO DAILY 01/30/20 04/15/20 04/15/20 History Toviaz 4 mg PO DAILY 01/30/20 04/15/20 04/15/20 History Tradjenta 5 mg PO DAILY 01/30/20 04/15/20 04/15/20 History acetaminophen 650 mg PO QID PRN 01/30/20 04/15/20 01/29/20 History amlodipine 5 mg PO DAILY 01/30/20 04/15/20 04/15/20 History aripiprazole 5 mg PO BID 01/30/20 04/15/20 04/15/20 History bisacodyl 10 mg KS DAILY PRN 01/30/20 04/15/20 01/30/20 History calcium carbonate 500 mg PO DAILY 01/30/20 04/15/20 04/15/20 History fluticasone propionate 2 spray INTRANASAL DAILY 01/30/20 04/15/20 04/15/20 History furosemide [Lasix] 40 mg PO DAILY 01/30/20 04/15/20 04/15/20 History levothyroxine 125 mcg PO DAILY 01/30/20 04/15/20 04/15/20 History lisinopril 10 mg PO DAILY 01/30/20 04/15/20 04/15/20 History magnesium hydroxide [Milk of 30 ml PO DAILY PRN 01/30/20 04/15/20 01/29/20 History Magnesia] melatonin 5 mg PO DAILY 01/30/20 04/15/20 04/14/20 History metoprolol tartrate 100 mg PO BID 01/30/20 04/15/20 04/15/20 History mirtazapine 45 mg PO DAILY 01/30/20 04/15/20 04/15/20 History multivitamin 1 tab PO DAILY 01/30/20 04/15/20 04/15/20 History nystatin 1 applic TOPICAL BID 01/30/20 04/15/20 04/15/20 History oxycodone-acetaminophen 1 tab PO DAILY 01/30/20 04/15/20 04/15/20 History oxycodone-acetaminophen 1 tab PO Q4H PRN 01/30/20 04/15/20 04/14/20 History pantoprazole 40 mg PO DAILY 01/30/20 04/15/20 04/15/20 History polyethylene glycol 3350 [Miralax] 17 g PO DAILY PRN 01/30/20 04/15/20 01/30/20 History senna 8.6 mg PO BID 01/30/20 04/15/20 04/15/20 History simvastatin 20 mg PO DAILY 01/30/20 04/15/20 04/14/20 History trazodone 200 mg PO BEDTIME 01/30/20 04/15/20 04/14/20 History venlafaxine 150 mg PO DAILY 01/30/20 04/15/20 04/15/20 History amino acids-protein hydrolys 1 ea PO DAILY 04/15/20 04/15/20 04/15/20 History [Pro-Stat AWC] levofloxacin [Levaquin] 750 mg PO DAILY 04/15/20 04/15/20 04/14/20 History Allergies Allergy/AdvReac Type Severity Reaction Status Date / Time clarithromycin Allergy Unknown Unknown Verified 01/30/20 13:48 hydrocodone Allergy Unknown Unknown Verified 01/30/20 13:48 metformin Allergy Unknown Unknown Verified 01/30/20 13:48 sitagliptin [From Januvia] Allergy Unknown Unknown Verified 01/30/20 13:48 tetanus and diphtheria Allergy Unknown Unknown Verified 01/30/20 13:48 toxoids triamcinolone Allergy Unknown Unknown Verified 01/30/20 13:48 PFSH Acute PFSH: Medical History Chronic kidney disease, stage 3 COPD (chronic obstructive pulmonary disease) Diabetic nephropathy Hypertension Hypothyroidism Leg ulcer, left PVD (peripheral vascular disease) Sleep apnea Type 2 diabetes mellitus Vascular dementia Surgical History History of bilateral knee arthroplasty S/P breast lumpectomy Family History Father Diabetes Hypertension Mother CAD (coronary artery disease) Hypertension Social History (Updated 04/15/20 @ 18:52 by Milagros Mcpherson MD) Smoking and tobacco status: never smoked Alcohol intake: never Household members: other Housing: Group Home Current gender identity: Female Additional social history: -lives at [facility] Vitals/I&O/Wt Last Vital Signs Temp 98.1 F 04/15/20 15:58 Pulse 96 04/15/20 15:58 Resp 18 04/15/20 15:58 BP 91/55 04/15/20 15:58 Weight last 48 hrs Weight 92.079 kg Physical Exam Const: COMMON NORMALS: no acute distress, patient oriented x3 and alert GENERAL APPEARANCE: cooperative; not comfortable NUTRITIONAL APPEARANCE: obese morbidly obese ORIENTATION/CONSCIOUSNESS: Yes awake HENMT: COMMON NORMALS: normocephalic, atraumatic and hearing grossly normal bilaterally HEAD & SCALP: normocephalic and atraumatic MOUTH: moist mucous membranes abnormal Details: parched Eye: COMMON NORMALS: Equal, round and reactive pupils present, EOMs intact bilaterally and conjunctivae normal CONJUNCTIVA: Yes conjunctivae normal PUPIL: Yes Equal, round and reactive pupils present Neck/C-Spine: COMMON NORMALS: full ROM GENERAL: Yes normal visual inspection and Yes trachea midline Resp: COMMON NORMALS: No retractions, No use of accessory muscles and clear to auscultation bilaterally EFFORT & INSPECTION: Yes able to speak in complete sentences, Yes symmetric chest movement, No tachypneic and Yes audible wheezes AUSCULTATION: clear to auscultation bilaterally and wheezes (audible) OTHER: -on 2 L NC Cardio: COMMON NORMALS: regular rate, regular rhythm, S1 normal heart sound present, S2 normal heart sound present and No murmurs present (Cardio) RATE: regular rate RHYTHM: regular rhythm HEART SOUNDS: S1 normal heart sound present and S2 normal heart sound present GI: COMMON NORMALS: Soft to palpation and non-tender INSPECTION: Yes central obesity and Yes visible herniation (large hiatal hernia) PALPATION: Yes Soft to palpation and No Tenderness to palpation present (GI) : BLADDER/KIDNEY EXAM: Yes catheter in place Catheter type (Female): urethral Extremity: COMMON NORMALS: normal to inspection and full ROM GENERAL: Yes edema (bilateral LE edema) Neuro: COMMON NORMALS: patient oriented x3, moves all extremities, no focal motor deficits and no sensory deficits noted SENSORIUM/ORIENTATION: Yes alert Psych: COMMON NORMALS: mental status grossly normal, Normal thought process present, cooperative, normal affect and speech normal SPEECH: Yes normal speech THOUGHT PROCESS: Normal thought process present Skin: COMMON NORMALS: no jaundice, no petechiae and no mottling OTHER: - noted bilateral LE ulcers, worse on the L, weeping edema, open ulcer on posterior L leg with superficial slough -chronic venous stasis dermatitis -excoriation in bilateral thighs, worse on the R Data : 04/15/20 16:10 04/15/20 16:10 A&P Assessment and plan (1) Acute hyperkalemia: -noted to have acute hyperkalemia -receiving calcium gluconate, insulin, D50 and kayexelate -telemetry monitoring Status: Acute (2) PERRY (acute kidney injury): -PERRY on CKD stage 3 -baseline Cr appears to be around 1.4 -PERRY is likely multifactorial given dehydration from poor oral intake, medicatio n induced (on diuretics, ACEi) -close monitoring of renal function -hold nephrotoxins, renally dose meds -Nephrology consult by Dr. Wilkerson appreciated -Renal US ordered -f/u renal lytes -Patino catheter placed in ED, monitor urine output -IVF hydration -Echo: EF=55%, mild MR -noted increased anion gap metabolic acidosis; started on bicarbonate drip Status: Acute (3) UTI (urinary tract infection): -UA indicative of infection -f/u urine cx -start on Ceftriaxone -noted leukocytosis, afebrile, trend WBC Status: Acute Qualifiers: Urinary tract infection type: acute cystitis Hematuria presence: without hematuria Qualified Code(s): N30.00 - Acute cystitis without hematuria (4) Chronic kidney disease, stage 3: -as noted above Status: Chronic (5) Vascular dementia: -with intermittent confusion -fall, aspiration precautions -re-orient as needed Status: Chronic Qualifiers: Dementia behavioral disturbance: with behavioral disturbance Qualified Code(s): F01.51 - Vascular dementia with behavioral disturbance (6) Type 2 diabetes mellitus: -last A1c-6.6 -Accucheks, ISS, hypoglycemia precautions -hold oral hypoglycemic agents -DM complicated by nephropathy, peripheral vascular disease, neuropathy Status: Chronic Qualifiers: Diabetes mellitus manager terminal insulin use: without [facility] [facility] use Diabetes mellitus complication status: with other specified complication Qualified Code(s): E11.69 - Type 2 diabetes mellitus with other specified complication (7) Diabetic nephropathy: -as noted above Status: Chronic Qualifiers: Diabetes mellitus type: type 2 Qualified Code(s): E11.21 - Type 2 diabetes mellitus with diabetic nephropathy (8) Hypertension: -diuretics, ACEi on hold -hold BB due to hypotension -close monitoring of vital signs Status: Chronic Qualifiers: Hypertension type: essential hypertension Qualified Code(s): I10 - Essential (primary) hypertension (9) Hypothyroidism: -resume levothyroxine Status: Chronic Qualifiers: Hypothyroidism type: unspecified Qualified Code(s): E03.9 - Hypothyroidism, unspecified Additional A&P Information -GERD; on PPI -Morbid obesity: BMI-36 kg/m2 -Peripheral vascular disease with bilateral LE ulcers; wound care as needed, elevation as tolerated. Recent CTA aorta with runoff. Has been following up with Dr. Peguero at [facility] -large hiatal hernia -Dyslipidemia; on statin -Chronic pain; on narcotics -consistent carb diet -hold PPI due to renal impairment -DVT ppx with heparin -Dispo: came from [facility] -Code status: FULL code, discussed with patient at bedside -ICU admission due to hyperkalemia, acute renal failure, isolation precautions due to COVID-19 testing, potential need for dialysis Attestations Medical Necessity Statement*: Leatha Emery's hospital stay will require greater than 2 midnights for management of acute kidney injury, hyperkalemia requiring IV fluid hydration, close monitoring of renal function and urine output as well as treatment of UTI. Time Spent in Patient Care: Greater than 35 minutes (>than 50% of time spent in counselling and/or direct pt care on unit) . Coding Level of Care Code Acute Senior Quality Analyst for g Fwd Diagnoses Acute hyperkalemia E87.5 PERRY (acute kidney injury) N17.9 UTI (urinary tract infection) N30.00 Urinary tract infection type: acute cystitis Hematuria presence: without hematuria Chronic kidney disease, stage 3 N18.3 Vascular dementia F01.51 Dementia behavioral disturbance: with behavioral disturbance Type 2 diabetes mellitus E11.69 Diabetes mellitus [facility] insulin use: without manager terminal use Diabetes mellitus complication status: with other specified complication Diabetic nephropathy E11.21 Diabetes mellitus type: type 2 Hypertension I10 Hypertension type: essential hypertension Hypothyroidism E03.9 Hypothyroidism type: unspecified
[2020-04-15] MEDS: insulin regular-human 100 units/1 mL 5 UNIT IVP (18:33)
--- NOTE | 2020-04-15 19:17 | PC.NURSE ---
COVID-19 swab obtained and taken to lab.
[2020-04-15 20:00] VITALS: BP 75/42; PULSE 88; RESP 20; TEMP 36.8; O2SAT 99
[2020-04-15 20:02] VITALS: BP 109/65; PULSE 102; RESP 20; O2SAT 95
[2020-04-15 20:16] LABS: Thyroid Stimulating Hormone 10.73 uIU/mL (0.27-4.20)
[2020-04-15 20:17] LABS: Hepatitis C Virus Antibody Non-Reactive (Nonreactive)
[2020-04-15] MEDS: sodium bicarbonate 150 MEQ in dextrose 5% 1,000 ML 125 MEQ IV (20:30)
[2020-04-15] MEDS: cefTRIAXone 1,000 MG in sodium chloride 0.9% (plus) 50 ML 100 MG IV (21:15)
[2020-04-15] MEDS: heparin 5,000 unit/mL INJ 1 mL 5000 UNIT SUBCUT (21:15)
[2020-04-15] MEDS: trazodone 100 mg Tablet 200 MG PO (21:16)
[2020-04-15 22:00] VITALS: BP 110/55; BP 75/52; PULSE 112; PULSE 96; RESP 26; RESP 28; O2SAT 100; O2SAT 97
[2020-04-15 22:37] LABS: ABG PCO2 29.3 mmHg (35-45); ABG PH Result 7.38 (7.35-7.45); Alveolar-Arterial Oxygen Gradi 7.3 mmHg (5-10); Arterial Blood Gas Hematocrit 32.1 % (37-47); Blood Gas Sample Site Brachial, right; Blood Gas Sample Type Arterial; HCO3 ABG 17.1 mmol/L (22-26); HGB O2 Sat 96.1 % (95-100); Ionized Calcium Level - ABG 1.3 mmol/L (1.1-1.4); Methemoglobin 0.9 % (0.4-1.5); Oxygen Device NC; Oxygen Saturation ABG 96.8; Total Hemoglobin 10.5 g/dL (12-16)
[2020-04-15 23:00] VITALS: BP 92/50; RESP 27; O2SAT 99
[2020-04-15] MEDS: LORazepam 2 mg/mL INJ 1 mL 1 MG IVP (23:16)
[2020-04-15 23:36] LABS: Alanine Aminotransferase 9 U/L (0-33); Alkaline Phosphatase 140 IU/L (35-105); Anion Gap 25.5 (5-19); Aspartate Amino Transferase 15 U/L (0-32); Calcium 9.9 mg/dL (8.5-10.5); Carbon Dioxide 19 mmol/L (22-29); Chloride 98 mmol/L (98-107); Creatine Phosphokinase 128 U/L (26-192); Globulin 3.7 g/dL (1.3-4.6); Glucose 96 mg/dL (65-115); Osmolality Calculated 283 mOsm/kg (285-295); Phosphorus 6.4 mg/dL (2.5-4.5); Sodium 136 mmol/L (136-145); Thyroid Stimulating Hormone 9.87 uIU/mL (0.27-4.20); Total Bilirubin 0.3 mg/dL (0.15-1.2); Total Protein 6.7 g/dL (6.6-8.7)
[2020-04-15 23:38] LABS: Potassium 6.5 mmol/L (3.5-5.1)
[2020-04-15 23:39] LABS: Blood Urea Nitrogen 103 mg/dL (8-23)
--- NOTE | 2020-04-15 23:40 | PC.NURSE ---
Lab called critical potassium of 6.5. Called Dr. Corrales who said he was going to consult Dr. Mathews and put in some orders.
[2020-04-16] VITALS (19 sets, daily range): BP systolic 76–142; BP diastolic 41–111; PULSE 88–135; RESP 12–35; TEMP 37.7; O2SAT 93–100
[2020-04-16] MEDS: dextrose 50% syringe 50 mL IVP (00:43)
[2020-04-16] MEDS: sodium polystyrene sulfonate 15 gm/60 mL Btl PO (00:43)
[2020-04-16] MEDS: insulin regular-human 5 UNIT in SYRINGE 1 EACH IVP (00:43)
[2020-04-16] MEDS: sodium chloride 0.9% 500 ML 999 ML IV (00:44)
--- NOTE | 2020-04-16 01:47 | PC.NURSE ---
Patient unable to tolerate Kayexalate. Dr. Corrales notified. Ok'd discontinue of order.
[2020-04-16 02:38] LABS: INR 1.14 (0.8-1.2)
[2020-04-16 02:47] LABS: Alanine Aminotransferase 9 U/L (0-33); Albumin Level 2.4 g/dL (3.5-5.2); Alkaline Phosphatase 119 IU/L (35-105); Anion Gap 19.7 (5-19); Aspartate Amino Transferase 16 U/L (0-32); Calcium 8.9 mg/dL (8.5-10.5); Carbon Dioxide 21 mmol/L (22-29); Chloride 102 mmol/L (98-107); Globulin 4.1 g/dL (1.3-4.6); Glucose 94 mg/dL (65-115); Osmolality Calculated 284 mOsm/kg (285-295); Potassium 5.7 mmol/L (3.5-5.1); Sodium 137 mmol/L (136-145); Total Bilirubin 0.3 mg/dL (0.15-1.2); Total Protein 6.5 g/dL (6.6-8.7)
[2020-04-16 02:55] LABS: Blood Urea Nitrogen 94 mg/dL (8-23)
--- NOTE | 2020-04-16 03:04 | PC.NURSE ---
Lab called critical BUN of 94. Dr. Corrales notified of all lab results. No new orders. Will continue to monitor.
[2020-04-16 03:08] LABS: Partial Thromboplastin Time 29.1 SECONDS (23.9-36.7)
[2020-04-16 03:29] LABS: Potassium, Radom Urine 57 mmol/L; Urine Random Sodium 26 mmol/L
[2020-04-16 03:34] LABS: Urine Random Chloride 16 mmol/L
--- NOTE | 2020-04-16 04:30 | PC.NURSE ---
Hold [address] Narvaez.
[2020-04-16 04:46] LABS: Basophils % 0.2 %; Eosinophils # 0.1 10^3/uL (0.0-0.8); Eosinophils % 0.8 %; Hematocrit 31.5 % (37.0-47.0); Hemoglobin 9.6 g/dL (11.5-15.3); Lymphocytes # 1.8 10^3/uL (0.8-4.8); Lymphocytes % 13.9 %; Mean Corpuscular HGB Conc 30.5 g/dL (30.0-36.0); Mean Corpuscular Hemoglobin 28.5 pg (28.0-34.0); Mean Corpuscular Volume 93.5 fL (81-99); Mean Platelet Volume 9.2 fL (7.4-10.4); Monocytes # 1.3 10^3/uL (0.2-0.9); Monocytes % 9.9 %; Neutrophils # 9.82 10^3/uL (1.8-7.7); Neutrophils % 74.6 %; Nucleated Red Blood Cells % 0 %; Platelet Count 413 10^3/cmm (130-400); Red Blood Count 3.37 10^6/uL (4.1-5.3); Red Cell Distribution Width 16.6 % (12.1-15.1); White Blood Count 13.2 10^3/uL (4.0-10.0)
[2020-04-16 05:27] LABS: Alanine Aminotransferase 9 U/L (0-33); Albumin Level 2.8 g/dL (3.5-5.2); Alkaline Phosphatase 120 IU/L (35-105); Anion Gap 20.8 (5-19); Aspartate Amino Transferase 15 U/L (0-32); Calcium 9.8 mg/dL (8.5-10.5); Carbon Dioxide 21 mmol/L (22-29); Chloride 100 mmol/L (98-107); Globulin 3.6 g/dL (1.3-4.6); Glucose 85 mg/dL (65-115); Magnesium 2.5 mg/dL (1.7-2.3); Osmolality Calculated 282 mOsm/kg (285-295); Phosphorus 5.2 mg/dL (2.5-4.5); Potassium 5.8 mmol/L (3.5-5.1); Sodium 136 mmol/L (136-145); Total Bilirubin 0.3 mg/dL (0.15-1.2); Total Protein 6.4 g/dL (6.6-8.7)
--- NOTE | 2020-04-16 05:30 | PC.NURSE ---
Lab called critical BUN of 100. Dr. Corrales notified. No new orders at this time.
[2020-04-16 05:32] LABS: Calcium 9.3 mg/dL (8.5-10.5)
[2020-04-16 05:33] LABS: Blood Urea Nitrogen 100 mg/dL (8-23)
--- NOTE | 2020-04-16 06:00 | PM.PN ---
Subjective Subjective: Interval history: more alert. denies n/v/f/c/evangelista/sob Vitals/I&O/Wt Last Vital Signs Temp 98.3 F 04/15/20 20:00 Pulse 101 H 04/16/20 04:00 Resp 22 H 04/16/20 04:00 BP 118/62 04/16/20 04:00 Pulse Ox 98 04/16/20 04:00 04/15/20 04/15/20 04/16/20 14:59 22:59 06:59 Output Total 450 / 450 Balance -450 / -450 Weight last 48 hrs Weight 92.079 kg Physical Exam Narrative: EXAM NARRATIVE: obese, NARD, nc 02, lying down in bed heent- nc/at, eomi neck supple lung scattered wheezes heart irreg +YANDY abd soft, nt, nd, +BS ext wrapped, 1+ edema, lesions that are wrapped neuro-a,a, o x 2 Data : 04/16/20 04:15 04/16/20 04:15 A&P Additional A&P Information 69 yr old female 1. likely pna- broad spectrum abx f/u covid test -pt had septic shock on admission w/ hypotension and PERRY 2. hyperkalemia- on mariluz-i at rehab and DM -low k diet kayexalate, d50, reg insulin, ca k has improved to 5.8- monitor on bicarb drip -repeat chemistries in a few hrs, attempt to avoid dialysis -monitor on tele 3. PERRY- likely prerenal vs ATN -baseline cr 1.1 -hold mariluz-i, arb, nsaid, siuretics -renal dose meds -real -renal us bicarb drip -monitor uop and chemistries- based on clinical course, may need HD soon mild met acidosis w/ resp compensation -cr is hopefully starting to improve 3. UTI-ua w/ 40-50 wbc and 4+ bact- f/u ur cx- getting abx 4. PVD- LE ulcer follows in wound clinic and w/ Dr. Mathews 5. DM- monitor glucose 6. h/o COPD 7. anemia 8. mild elevated alk phos 9. phos improved w/ ivf pth normal at 31 10. hypothyroidism- tsh of 10- can be sick euthyroid or adjust med dosage discussed w/ RN in detail Attestations Medical Necessity Statement*: perry, septic shock, hyperkalemia Time Spent in Patient Care: Greater than 35 minutes Coding Level of Care Code Acute Automotive Service Management Teacher for Darek Ojeda
--- NOTE | 2020-04-16 06:10 | PC.NURSE ---
Spoke to Dr. Corrales regarding placement of dialysis catheter this AM. Dr. Corrales wants to hold off for now and repeat labs at 1000. Dr. Mathews notified. Obtained consent for dialysis placement from patients josh Emery. Consent placed in chart.
[2020-04-16] MEDS: sodium bicarbonate 150 MEQ in dextrose 5% 1,000 ML 125 MEQ IV (06:23)
[2020-04-16 06:25] LABS: Glucose Point of Care 94 mg/dL (70-110)
[2020-04-16 06:25] LABS: Glucose Point of Care 67 mg/dL (70-110)
[2020-04-16 06:25] LABS: Glucose Point of Care 186 mg/dL (70-110)
[2020-04-16 06:25] LABS: Glucose Point of Care 62 mg/dL (70-110)
[2020-04-16 06:25] LABS: Glucose Point of Care 106 mg/dL (70-110)
--- NOTE | 2020-04-16 07:21 | PC.NURSE ---
real placed per emd 18 moroccan with 150 mls out patient tolerated well
--- NOTE | 2020-04-16 07:24 | PC.NURSE ---
order put in for real placed on day of patients visit
--- NOTE | 2020-04-16 07:45 | P.PN_ITS ---
Subjective Subjective: Interval history: Has had multiple labs so far with noted continued acute renal impairment, hyperkalemia is improving. Decreased leukocytosis, hemoglobin of 9.6, had 450 mL urine output. Pending labs at 10 AM to determine if need for dialysis. TSH elevation noted. Blood pressure has improved overnight, tachycardic, afebrile. Remains on isolation precautions pending COVID-19 test results. Patient has had a very eventful day, seen several times throughout the day. I oscar was resting in bed and had attempted to have a discussion about need for dialysis. Repeat labs did show some improvement in creatinine, potassium but patient was noted to be audibly wheezing and in some respiratory distress so discontinued IV fluid hydration. Rested temporary dialysis catheter to be placed. Due to restlessness and some agitation she received a dose of Ativan with noted jerking movements and tremors of her bilateral upper extremities and inability to stay still. During process of temporary dialysis catheter placement by Dr. Mathews, she was noted to be hypotensive and continued to be unable to maintain position so decision made to intubate for airway protection. Temporary dialysis catheter placed. Patient sedated with propofol. Follow-up ABG done and able to wean down FiO2 to 40%. Continues to be hypotensive so will need addition of pressor support. Dialysis is ongoing currently. Medications: Reviewed: Yes Medication Review Details: Active Medications Generic Name Dose Route Start Last Admin Trade Name Freq PRN Reason Stop Dose Admin Acetaminophen 650 mg 04/15/20 19:10 Tylenol PO Q6H PRN MILD PAIN Aripiprazole 5 mg 04/16/20 09:00 Abilify PO BID [facility] Atorvastatin Calci um 20 mg 04/16/20 09:00 Lipitor PO DAILY [facility] Dextrose 25 ml 04/15/20 19:10 D50w IVP ONCE PRN hypoglycemia prot ocol Protocol Dextrose 50 ml 04/15/20 19:10 D50w IVP PRN PRN hypoglycemia prot ocol Protocol Fluticasone Propio jovan 2 spray 04/16/20 09:00 Flonase INTRANASAL DAILY [facility] Glucagon 1 mg 04/15/20 19:10 Glucagen IM ONCE PRN Adult Acute Hypog lycemia Prot. Protocol Heparin Sodium (Be ef Lung) 5,000 unit 04/15/20 20:30 04/16/20 06:29 Heparin SUBCUT Not Given Q8H SWATI Sodium Bicarbonate 150 meq/ 1,150 mls @ 175 m ls/hr 04/15/20 18:45 04/16/20 06:23 Dextrose IV 125 mls/hr .Q6H35M SWATI Administration Dextrose 500 mls @ 100 mls /hr 04/15/20 19:10 D5w IV ONCE PRN Adult Acute Hypog lycemia Prot Protocol Ceftriaxone Sodium 1,000 mg/ 50 mls @ 100 mls/ hr 04/15/20 21:00 04/15/20 21:45 Sodium Chloride IV Infused Q24H SWATI Infusion Protocol Insulin Aspart 0 unit 04/15/20 21:00 04/15/20 21:16 Novolog SUBCUT Not Given WM&BEDTIME SWATI Protocol Levothyroxine Sodi um 125 mcg 04/16/20 09:00 Synthroid PO DAILY SWATI Lorazepam 1 mg 04/15/20 19:10 04/15/20 23:16 Ativan IVP 1 mg Q6H PRN Administration ANXIETY Metoprolol Tartrat e 25 mg 04/16/20 09:00 Lopressor PO BID SWATI Multivitamins Ther apeutic 1 tab 04/16/20 09:00 Multivitamin Tab PO DAILY SWATI Nystatin 1 applic 04/16/20 09:00 Nystatin Powder TOPICAL BID SWATI Ondansetron HCl 4 mg 04/15/20 19:10 Zofran IVP Q6H PRN NAUSEA AND VOMITI NG Trazodone HCl 200 mg 04/15/20 21:00 04/15/20 21:16 Desyrel PO 200 mg BEDTIME SWATI Administration clarithromycin Allergy (Unknown, Verified 01/30/20 13:48) Unknown hydrocodone Allergy (Unknown, Verified 01/30/20 13:48) Unknown metformin Allergy (Unknown, Verified 01/30/20 13:48) Unknown sitagliptin [From Januvia] Allergy (Unknown, Verified 01/30/20 13:48) Unknown tetanus and diphtheria toxoids Allergy (Unknown, Verified 01/30/20 13:48) Unknown triamcinolone Allergy (Unknown, Verified 01/30/20 13:48) Unknown Vitals/I&O/Wt Last Vital Signs Temp 98.3 F 04/15/20 20:00 Pulse 126 H 04/16/20 06:00 Resp 24 H 04/16/20 06:00 BP 107/54 04/16/20 06:00 Pulse Ox 99 04/16/20 06:00 04/15/20 04/16/20 04/16/20 22:59 06:59 14:59 Intake Total 50 / 50 1150 / 1200 Output Total 450 / 450 Balance 50 / 50 700 / 750 Weight last 48 hrs Weight 92.079 kg Physical Exam Const: COMMON NORMALS: no acute distress, patient oriented x3 and alert GENERAL APPEARANCE: cooperative; not comfortable NUTRITIONAL APPEARANCE: obese morbidly obese ORIENTATION/CONSCIOUSNESS: Yes awake HENMT: COMMON NORMALS: normocephalic, atraumatic and hearing grossly normal bilaterally HEAD & SCALP: normocephalic and atraumatic MOUTH: moist mucous membranes abnormal Details: parched Eye: COMMON NORMALS: Equal, round and reactive pupils present, EOMs intact bilaterally and conjunctivae normal CONJUNCTIVA: Yes conjunctivae normal PUPIL: Yes Equal, round and reactive pupils present Neck/C-Spine: COMMON NORMALS: full ROM GENERAL: Yes normal visual inspection and Yes trachea midline Resp: COMMON NORMALS: No retractions, No use of accessory muscles and clear to auscultation bilaterally EFFORT & INSPECTION: Yes able to speak in complete sentences, Yes symmetric chest movement, No tachypneic and Yes audible wheezes AUSCULTATION: clear to auscultation bilaterally and wheezes (audible) OTHER: -on 2 L NC Cardio: COMMON NORMALS: regular rate, regular rhythm, S1 normal heart sound present, S2 normal heart sound present and No murmurs present (Cardio) RATE: regular rate RHYTHM: regular rhythm HEART SOUNDS: S1 normal heart sound present and S2 normal heart sound present GI: COMMON NORMALS: Soft to palpation and non-tender INSPECTION: Yes central obesity and Yes visible herniation (large hiatal hernia) PALPATION: Yes Soft to palpation and No Tenderness to palpation present (GI) : BLADDER/KIDNEY EXAM: Yes catheter in place Catheter type (Female): urethral Extremity: COMMON NORMALS: normal to inspection and full ROM GENERAL: Yes edema (bilateral LE edema) Neuro: COMMON NORMALS: patient oriented x3, moves all extremities, no focal motor deficits and no sensory deficits noted SENSORIUM/ORIENTATION: Yes alert Psych: COMMON NORMALS: mental status grossly normal, Normal thought process present, cooperative, normal affect and speech normal SPEECH: Yes normal speech THOUGHT PROCESS: Normal thought process present Skin: COMMON NORMALS: no jaundice, no petechiae and no mottling OTHER: - noted bilateral LE ulcers, worse on the L, weeping edema, open ulcer on posteri or L leg with superficial slough -chronic venous stasis dermatitis -excoriation in bilateral thighs, worse on the R Data : 04/16/20 04:15 04/16/20 10:15 A&P Assessment and plan (1) Sepsis: -Present on admission as evidenced by leukocytosis, hypotension, tachycardia, tachypnea, acute renal failure and now has developed acute respiratory failure as well -has been on Ceftriaxone, will broaden IV antibiotic spectrum with addition of Zosyn Status: Acute Qualifiers: Sepsis type: sepsis due to unspecified organism Sepsis acute organ dysfunction status: with acute organ dysfunction Severe sepsis acute organ dysfunction type: acute respiratory failure Acute respiratory failure type: unspecified Severe sepsis shock status: with septic shock Qualified Code(s): A41.9 - Sepsis, unspecified organism; R65.21 - Severe sepsis with septic shock; J96.00 - Acute respiratory failure, unspecified whether with hypoxia or hypercapnia (2) Acute respiratory failure: -Intubated during process of temporary dialysis catheter placement for airway protection due to noted acute mental status change and inability to maintain appropriate positioning -Remains on vent support -Daily ABG, CXR while on vent -Weaning trial when appropriate -Sedation with propofol -hypotensive, requiring pressor support to maintain MAP 60-65 Status: Acute Qualifiers: Respiratory failure complication: unspecified whether with hypoxia or hypercapnia Qualified Code(s): J96.00 - Acute respiratory failure, unspecified whether with hypoxia or hypercapnia (3) Acute hyperkalemia: -noted to have acute hyperkalemia; some improvement today -received calcium gluconate, insulin, D50 and kayexelate -telemetry monitoring -continue to monitor Status: Acute (4) PERRY (acute kidney injury): -PERRY on CKD stage 3 -baseline Cr appears to be around 1.4 -PERRY is likely multifactorial given dehydration from poor oral intake, medication induced (on diuretics, ACEi) -close monitoring of renal function -hold nephrotoxins, renally dose meds -Nephrology consult by Dr. Wilkerson appreciated -Renal US ordered -renal lytes noted -Patino catheter placed in ED, monitor urine output -IVF hydration -Echo: EF=55%, mild MR -noted increased anion gap metabolic acidosis; on bicarbonate drip -Due to noted respiratory distress, likely fluid overload unable to continue IV fluid hydration so temporary dialysis catheter placed and currently receiving dialysis Status: Acute (5) UTI (urinary tract infection): -UA indicative of infection -f/u urine cx -on Ceftriaxone -noted leukocytosis, afebrile; WBC trending down -With associated septic shock as evidenced by leukocytosis, hypotension, tachyc ardia, tachypnea and acute renal impairment Status: Acute Qualifiers: Hematuria presence: without hematuria Urinary tract infection type: acute cystitis Qualified Code(s): N30.00 - Acute cystitis without hematuria (6) Chronic kidney disease, stage 3: -as noted above Status: Chronic (7) Vascular dementia: -with intermittent confusion -fall, aspiration precautions -re-orient as needed Status: Chronic Qualifiers: Dementia behavioral disturbance: with behavioral disturbance Qualified Code(s): F01.51 - Vascular dementia with behavioral disturbance (8) Type 2 diabetes mellitus: -last A1c-6.6 -Accucheks, ISS, hypoglycemia precautions -hold oral hypoglycemic agents -DM complicated by nephropathy, peripheral vascular disease, neuropathy Status: Chronic Qualifiers: Diabetes mellitus complication status: with other specified complication Diabetes mellitus 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 insulin use: without 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 use Qualified Code(s): E11.69 - Type 2 diabetes mellitus with other specified complication (9) Diabetic nephropathy: -as noted above Status: Chronic Qualifiers: Diabetes mellitus type: type 2 Qualified Code(s): E11.21 - Type 2 diabetes mellitus with diabetic nephropathy (10) Hypertension: -diuretics, ACEi on hold -hold BB due to hypotension -close monitoring of vital signs Status: Chronic Qualifiers: Hypertension type: essential hypertension Qualified Code(s): I10 - Essential (primary) hypertension (11) Hypothyroidism: -on levothyroxine -TSH elevated (9.87), may need adjustment of levothyroxine dose Status: Chronic Qualifiers: Hypothyroidism type: unspecified Qualified Code(s): E03.9 - Hypothyroid ism, unspecified Additional A&P Information -GERD; on PPI -Morbid obesity: BMI-36 kg/m2 -Peripheral vascular disease with bilateral LE ulcers; wound care as needed, elevation as tolerated. Recent CTA aorta with runoff. Has been following up with Dr. Peguero at [facility] -large hiatal hernia -Dyslipidemia; on statin -Chronic pain; on narcotics -consistent carb diet -hold PPI due to renal impairment -DVT ppx with heparin -Dispo: came from [facility] [place] -Code status: FULL code, discussed with patient at bedside -ICU care due to hyperkalemia, acute renal failure, isolation precautions due to COVID-19 testing, need for dialysis, vent and pressor support Attestations Medical Necessity Statement*: Patient requires hospitalization for continued treatment of acute renal failure, hyperkalemia, UTI with associated septic shock, pending COVID-19 test results. Time Spent in Patient Care: 16 - 35 minutes (>than 50% of time spent in counselling and/or direct pt care on unit) . Critical Care Time: The high probability of a clinically significant, sudden or life threatening deterioration of the patient's [cardiovascular, respiratory, renal] system(s) required my full and direct attention, intervention and personal management. The critical care time is as shown. This time is in addition to time spent performing any reported procedures but includes the following: [x] Data and vital sign review and interpretation [x] Patient assessment, examination and intervention [x] Documentation [x] Medication orders and management Critical Care Time (min): 45 Coding Level of Care Code Acute Loading Rack Supervisor for Chg Fwd Exam Comprehensive Diagnoses Sepsis A41.9; R65.21; J96.00 Sepsis type: sepsis due to unspecified organism Sepsis acute organ dysfunction status: with acute organ dysfunction Severe sepsis acute organ dysfunction type: acute respiratory failure Acute respiratory failure type: unspecified Severe sepsis shock status: with septic shock Acute respiratory failure J96.00 Respiratory failure complication: unspecified whether with hypoxia or hypercapnia Acute hyperkalemia E87.5 PERRY (acute kidney injury) N17.9 UTI (urinary tract infection) N30.00 Hematuria presence: without hematuria Urinary tract infection type: acute cystitis Chronic kidney disease, stage 3 N18.3 Vascular dementia F01.51 Dementia behavioral disturbance: with behavioral disturbance Type 2 diabetes mellitus E11.69 Diabetes mellitus complication status: with other specified complication Diabetes mellitus intermediate insulin use: without intermediate use Diabetic nephropathy E11.21 Diabetes mellitus type: type 2 Hypertension I10 Hypertension type: essential hypertension Hypothyroidism E03.9 Hypothyroidism type: unspecified
[2020-04-16] MEDS: atorvastatin 40 mg Tablet 20 MG PO (09:17)
[2020-04-16] MEDS: levothyroxine 125 mcg Tablet PO (09:17)
[2020-04-16] MEDS: metoprolol tartrate 50 mg Tablet PO (09:17)
[2020-04-16] MEDS: ARIPiprazole 10 mg Tablet 5 MG PO (09:17)
[2020-04-16] MEDS: multivitamin therapeutic Tablet 1 TAB PO (09:17)
[2020-04-16] MEDS: nystatin powder 15 gm Btl 1 APPLIC TOPICAL (09:18)
[2020-04-16] MEDS: fluticasone nasal spray 16gm Btl 2 SPRAY INTRANASAL (09:24)
[2020-04-16 09:38] LABS: ABG PCO2 31.2 mmHg (35-45); ABG PH Result 7.48 (7.35-7.45); Blood Gas Sample Site Brachial, right; Blood Gas Sample Type Arterial; Carboxyhemoglobin 0.4 %THgb (0.4-20.1); HGB O2 Sat 96.2 % (95-100); Ionized Calcium Level - ABG 1.2 mmol/L (1.1-1.4); Methemoglobin 1.1 % (0.4-1.5); Oxygen Device NC; Oxygen Saturation ABG 97.7; PO2 ABG 91.5 mmHg (80.0-100.0); Potassium Level - ABG 5.1 mmol/L (3.5-5.0); Total Hemoglobin 10.1 g/dL (12-16)
[2020-04-16 10:59] LABS: Alanine Aminotransferase 9 U/L (0-33); Albumin Level 2.4 g/dL (3.5-5.2); Alkaline Phosphatase 114 IU/L (35-105); Aspartate Amino Transferase 19 U/L (0-32); Calcium 8.4 mg/dL (8.5-10.5); Carbon Dioxide 22 mmol/L (22-29); Chloride 99 mmol/L (98-107); Creatine Phosphokinase 209 U/L (26-192); Globulin 3.9 g/dL (1.3-4.6); Glucose 152 mg/dL (65-115); Osmolality Calculated 283 mOsm/kg (285-295); Sodium 135 mmol/L (136-145); Total Bilirubin 0.2 mg/dL (0.15-1.2); Total Protein 6.3 g/dL (6.6-8.7)
[2020-04-16 11:03] LABS: Anion Gap 19.5 (5-19); Potassium 5.5 mmol/L (3.5-5.1)
[2020-04-16 11:04] LABS: Blood Urea Nitrogen 85 mg/dL (8-23)
[2020-04-16] MEDS: LORazepam 2 mg/mL INJ 1 mL 1 MG IVP (11:48)
[2020-04-16] MEDS: heparin 5,000 unit/mL INJ 1 mL 5000 UNIT SUBCUT ×2 (11:48→20:56)
--- NOTE | 2020-04-16 13:59 | ECG_ITS ---
[facility] Test Date: 2020-04-16 Pat Name: Leatha Emery Department: Room: ICU09 Gender: Female Technical Illustrations Map Inker: : [id number] Requested By: Milagros Mcpherson Order Number: [id number] Jacquie MD: Micky Cuadra M.D. Measurements Intervals [place] Rate: 97 P: ND: -1 QRS: 117 QRSD: 78 T: 24 QT: 340 QTc: 433 Interpretive Statements ATRIAL FIBRILLATION with significant baseline artifact POSSIBLE RIGHT VENTRICULAR HYPERTROPHY [SOME/ALL OF: PROMINENT R IN V1, LATE TRANSITION, RAD, CORIN, SSS] MODERATE ST DEPRESSION [0.05+ mV ST DEPRESSION] Compared to ECG 04/15/2020 16:24:29 No significant changes Electronically Signed On 04-16-2020 17:08:03 CDT by Micky Cuadra M.D. [email or web address]
[2020-04-16 14:10] LABS: ABG PCO2 33.6 mmHg (35-45); ABG PH Result 7.49 (7.35-7.45); Alveolar-Arterial Oxygen Gradi 71.4 mmHg (5-10); Arterial Blood Gas Hematocrit 32.5 % (37-47); Base Excess ABG 2.3 mmol/L (-2.0-2.0); Blood Gas Sample Site Brachial, right; Blood Gas Sample Type Arterial; HCO3 ABG 25.4 mmol/L (22-26); HGB O2 Sat 95.1 % (95-100); Ionized Calcium Level - ABG 1.2 mmol/L (1.1-1.4); Oxygen Device NC; Oxygen Saturation ABG 95.8; PO2 ABG 84.1 mmHg (80.0-100.0); Potassium Level - ABG 4.9 mmol/L (3.5-5.0); Total Hemoglobin 10.6 g/dL (12-16)
[2020-04-16] MEDS: digoxin 250 mcg/ml INJ 2 mL 125 MCG IVP (14:20)
[2020-04-16] MEDS: FUROsemide 10 mg/mL SDV 10mL 60 MG IVP (14:21)
--- NOTE | 2020-04-16 14:23 | P.ANESASSM_ITS ---
Pre-Anesthetic Assessment Pre-Anesthetic Assessment: Height/Weight: Height 1.6 m Weight 92.079 kg Temp Pulse Resp BP Pulse Ox 98.3 F 104 H 24 H 107/54 95 04/15/20 20:00 04/16/20 13:49 04/16/20 06:00 04/16/20 06:00 04/16/20 13:49 Preop Diagnosis: acute renal failure Proposed Procedure: Operation Date: 04/16/20 06:20 Proposed Procedures p Dialysis Catheter Insertion(Not Applicable) - Rogelio Mathews MD Familial anesthetic complications: Altered mental status Last intake: NPO > 8 hrs Exam: Pre-Anes Outpt Exam: alert and clear to auscultation bilaterally Additional Exam Findings (including area of procedure): tachycardia, labored breathing Airway: Additional comments: altered mental status CV/HEM: CV/HEM: HTN Comments: echo 55% - MILD MR : Comments: Acute renal failure w/ hyperkalemia Metabolic: Metabolic: DM and Thyroid Comments: met acidosis Neuropsych: Neuropsych: Dementia Anesthetic Plan: ASA status: 4E Anesthesia: Local Only Risk of > 500 ml blood loss (7ml/kg in children): No Meds/Allergies Current Medications: Current Medications Generic Name Dose Route Start Last Admin Trade Name Freq PRN Reason Stop Dose Admin Aripiprazole 5 mg 04/16/20 09:00 04/16/20 09:17 Abilify PO 5 mg BID SWATI Administration Atorvastatin Calci um 20 mg 04/16/20 09:00 04/16/20 09:17 Lipitor PO 20 mg DAILY SWATI Administration Fluticasone Propio jovan 2 spray 04/16/20 09:00 04/16/20 09:24 Flonase INTRANASAL 1 inhalation DAILY SWATI Administration Heparin Sodium (Be ef Lung) 5,000 unit 04/15/20 20:30 04/16/20 11:48 Heparin SUBCUT 5,000 unit Q8H SWATI Administration Ceftriaxone Sodium 1,000 mg/ 50 mls @ 100 mls/ hr 04/15/20 21:00 04/15/20 21:45 Sodium Chloride IV Infused Q24H SWATI Infusion Protocol Insulin Aspart 0 unit 04/15/20 21:00 04/16/20 11:47 Novolog SUBCUT 2 unit WM&BEDTIME SWATI Administration Protocol Levothyroxine Sodi um 125 mcg 04/16/20 09:00 04/16/20 09:17 Synthroid PO 125 mcg DAILY SWATI Administration Lorazepam 1 mg 04/15/20 19:10 04/16/20 11:48 Ativan IVP 1 mg Q6H PRN Administration ANXIETY Metoprolol Tartrat e 50 mg 04/16/20 09:00 04/16/20 09:17 Lopressor PO 50 mg BID SWATI Administration Multivitamins Ther apeutic 1 tab 04/16/20 09:00 04/16/20 09:17 Multivitamin Tab PO 1 tab DAILY SWATI Administration Nystatin 1 applic 04/16/20 09:00 04/16/20 09:18 Nystatin Powder TOPICAL 1 applic BID SWATI Administration Trazodone HCl 200 mg 04/15/20 21:00 04/15/20 21:16 Desyrel PO 200 mg BEDTIME SWATI Administration Additional Medication Information: Active Medications Generic Name Dose Route Start Last Admin Trade Name Freq PRN Reason Stop Dose Admin Acetaminophen 650 mg 04/15/20 19:10 Tylenol PO Q6H PRN MILD PAIN Aripiprazole 5 mg 04/16/20 09:00 Abilify PO BID SWATI Atorvastatin Calci um 20 mg 04/16/20 09:00 Lipitor PO DAILY SWATI Dextrose 25 ml 04/15/20 19:10 D50w IVP ONCE PRN hypoglycemia prot ocol Protocol Dextrose 50 ml 04/15/20 19:10 D50w IVP PRN PRN hypoglycemia prot ocol Protocol Fluticasone Propio jovan 2 spray 04/16/20 09:00 Flonase INTRANASAL DAILY SWATI Glucagon 1 mg 04/15/20 19:10 Glucagen IM ONCE PRN Adult Acute Hypog lycemia Prot. Protocol Heparin Sodium (Be ef Lung) 5,000 unit 04/15/20 20:30 04/16/20 06:29 Heparin SUBCUT Not Given Q8H SWATI Sodium Bicarbonate 150 meq/ 1,150 mls @ 175 m ls/hr 04/15/20 18:45 04/16/20 06:23 Dextrose IV 125 mls/hr .Q6H35M SWATI Administration Dextrose 500 mls @ 100 mls /hr 04/15/20 19:10 D5w IV ONCE PRN Adult Acute Hypog lycemia Prot Protocol Ceftriaxone Sodium 1,000 mg/ 50 mls @ 100 mls/ hr 04/15/20 21:00 04/15/20 21:45 Sodium Chloride IV Infused Q24H REPLACED BY [facility] Infusion Protocol Insulin Aspart 0 unit 04/15/20 21:00 04/15/20 21:16 Novolog SUBCUT Not Given WM&BEDTIME REPLACED BY [facility] Protocol Levothyroxine Sodi um 125 mcg 04/16/20 09:00 Synthroid PO DAILY SWATI Lorazepam 1 mg 04/15/20 19:10 04/15/20 23:16 Ativan IVP 1 mg Q6H PRN Administration ANXIETY Metoprolol Tartrat e 25 mg 04/16/20 09:00 Lopressor PO BID SWATI Multivitamins Ther apeutic 1 tab 04/16/20 09:00 Multivitamin Tab PO DAILY SWATI Nystatin 1 applic 04/16/20 09:00 Nystatin Powder TOPICAL BID SWATI Ondansetron HCl 4 mg 04/15/20 19:10 Zofran IVP Q6H PRN NAUSEA AND VOMITI NG Trazodone HCl 200 mg 04/15/20 21:00 04/15/20 21:16 Desyrel PO 200 mg BEDTIME SWATI Administration clarithromycin Allergy (Unknown, Verified 01/30/20 13:48) Unknown hydrocodone Allergy (Unknown, Verified 01/30/20 13:48) Unknown metformin Allergy (Unknown, Verified 01/30/20 13:48) Unknown sitagliptin [From Januvia] Allergy (Unknown, Verified 01/30/20 13:48) Unknown tetanus and diphtheria toxoids Allergy (Unknown, Verified 01/30/20 13:48) Unknown triamcinolone Allergy (Unknown, Verified 01/30/20 13:48) Unknown PFSH Anesthesia PFSH: Medical History (Updated 04/15/20 @ 19:12 by Milagros Mcpherson MD) Chronic kidney disease, stage 3 COPD (chronic obstructive pulmonary disease) Diabetic nephropathy Hypertension Hypothyroidism Leg ulcer, left PVD (peripheral vascular disease) Sleep apnea Type 2 diabetes mellitus Vascular dementia Surgical History History of bilateral knee arthroplasty S/P breast lumpectomy Family History Father Diabetes Hypertension Mother CAD (coronary artery disease) Hypertension Social History (Updated 04/15/20 @ 18:52 by Milagros Mchperson MD) Smoking and tobacco status: never smoked Alcohol intake: never Household members: other Housing: [facility] Current gender identity: Female Additional social history: -lives at [facility] Data Anesthesia CBC & Chem 7: 04/16/20 04:15 04/16/20 10:15 Other Labs: Laboratory Results - last 48 hr 04/15/20 04/15/20 04/15/20 02:20 16:10 16:10 WBC 14.4 H RBC 3.67 L Hgb 10.7 L Hct 34.7 L MCV 94.6 MCH 29.2 MCHC 30.8 RDW 17.0 H Plt Count 483 H MPV 9.0 Neut % (Auto) 60.9 Lymph % (Auto) 21.8 Whitman % (Auto) 10.5 Eos % (Auto) 6.4 Baso % (Auto) 0.1 Neut # (Auto) 8.75 H Lymph # (Auto) 3.2 Whitman # (Auto) 1.5 H Eos # (Auto) 0.9 H Baso # (Auto) 0.0 Nucleated RBC % (auto) 0 Nucleated RBCs # 0.0 PT INR APTT Specimen Type Sample Site ABG pH ABG pCO2 ABG pO2 ABG HCO3 ABG O2 Saturation ABG Base Excess Ash Test A-a O2 Gradient Hematocrit Hgb O2 Saturation Carboxyhemoglobin Methemoglobin Total Hemoglobin Ionized Calcium O2 Delivery Device O2 Liters/Min FiO2 Communications Superintendent ID Sodium 135 L Potassium 6.9 H* Chloride 100 Carbon Dioxide 20 L Anion Gap 21.9 H BUN 102 H* D Creatinine 4.9 H GFR Calculation Not Reportable Glucose 91 POC Glucose Calculated Osmolality 281 L Calcium 9.7 Phosphorus Magnesium Total Bilirubin 0.3 AST 13 ALT 10 Alkaline Phosphatase 132 H Creatine Kinase 102 Total Protein 7.0 Albumin 3.2 L Globulin 3.8 Lipase 11 L TSH PTH Intact Calcium (PTH Intact) Urine Color Urine Appearance Urine pH Ur Specific [employer] Urine Protein Urine Glucose (UA) Urine Ketones Urine Blood Urine Nitrate Urine Bilirubin Urine Urobilinogen Ur Leukocyte Esterase Urine RBC Urine WBC Ur Squamous Epith Cells Amorphous Sediment Urine Bacteria Ur Random Sodium 26 Ur Random Potassium 57 Ur Random Chloride 16 Hepatitis C Antibody 04/15/20 04/15/20 04/15/20 16:10 16:10 16:45 WBC RBC Hgb Hct MCV MCH MCHC RDW Plt Count MPV Neut % (Auto) Lymph % (Auto) Whitman % (Auto) Eos % (Auto) Baso % (Auto) Neut # (Auto) Lymph # (Auto) Whitman # (Auto) Eos # (Auto) Baso # (Auto) Nucleated RBC % (auto) Nucleated RBCs # PT INR APTT Specimen Type Sample Site ABG pH ABG pCO2 ABG pO2 ABG HCO3 ABG O2 Saturation ABG Base Excess Ash Test A-a O2 Gradient Hematocrit Hgb O2 Saturation Carboxyhemoglobin Methemoglobin Total Hemoglobin Ionized Calcium O2 Delivery Device O2 Liters/Min FiO2 Communications Superintendent ID Sodium Potassium Chloride Carbon Dioxide Anion Gap BUN Creatinine GFR Calculation Glucose POC Glucose Calculated Osmolality Calcium Phosphorus Magnesium Total Bilirubin AST ALT Alkaline Phosphatase Creatine Kinase Total Protein Albumin Globulin Lipase TSH 10.73 H PTH Intact Calcium (PTH Intact) Urine Color Yellow Urine Appearance Sl cloudy A Urine pH 5 Ur Specific [employer] 1.020 Urine Protein Neg Urine Glucose (UA) Norm Urine Ketones Negative Urine Blood Neg Urine Nitrate Negative Urine Bilirubin 1+ H Urine Urobilinogen Neg Ur Leukocyte Esterase 2+ H Urine RBC 0-4 H Urine WBC 40-55 H Ur Squamous Epith Cells None Amorphous Sediment Not Reportable Urine Bacteria 4+ H Ur Random Sodium Ur Random Potassium Ur Random Chloride Hepatitis C Antibody Non-reactive 04/15/20 04/15/20 04/15/20 20:33 21:24 21:52 WBC RBC Hgb Hct MCV MCH MCHC RDW Plt Count MPV Neut % (Auto) Lymph % (Auto) Whitman % (Auto) Eos % (Auto) Baso % (Auto) Neut # (Auto) Lymph # (Auto) Whitman # (Auto) Eos # (Auto) Baso # (Auto) Nucleated RBC % (auto) Nucleated RBCs # PT INR APTT Specimen Type Sample Site ABG pH ABG pCO2 ABG pO2 ABG HCO3 ABG O2 Saturation ABG Base Excess Ash Test A-a O2 Gradient Hematocrit Hgb O2 Saturation Carboxyhemoglobin Methemoglobin Total Hemoglobin Ionized Calcium O2 Delivery Device O2 Liters/Min FiO2 Communications Superintendent ID Sodium Potassium Chloride Carbon Dioxide Anion Gap BUN Creatinine GFR Calculation Glucose POC Glucose 67 62 94 Calculated Osmolality Calcium Phosphorus Magnesium Total Bilirubin AST ALT Alkaline Phosphatase Creatine Kinase Total Protein Albumin Globulin Lipase TSH PTH Intact Calcium (PTH Intact) Urine Color Urine Appearance Urine pH Ur Specific [employer] Urine Protein Urine Glucose (UA) Urine Ketones Urine Blood Urine Nitrate Urine Bilirubin Urine Urobilinogen Ur Leukocyte Esterase Urine RBC Urine WBC Ur Squamous Epith Cells Amorphous Sediment Urine Bacteria Ur Random Sodium Ur Random Potassium Ur Random Chloride Hepatitis C Antibody 07/22/20 07/22/20 07/22/20 22:25 22:30 22:56 WBC RBC Hgb Hct MCV MCH MCHC RDW Plt Count MPV Neut % (Auto) Lymph % (Auto) Whitman % (Auto) Eos % (Auto) Baso % (Auto) Neut # (Auto) Lymph # (Auto) Whitman # (Auto) Eos # (Auto) Baso # (Auto) Nucleated RBC % (auto) Nucleated RBCs # PT INR APTT Specimen Type Arterial Sample Site Brachial, right ABG pH 7.38 ABG pCO2 29.3 L ABG pO2 104.0 H ABG HCO3 17.1 L ABG O2 Saturation 96.8 ABG Base Excess -7.0 L Ash Test N/a A-a O2 Gradient 7.3 Hematocrit 32.1 L Hgb O2 Saturation 96.1 Carboxyhemoglobin Not Reportable Methemoglobin 0.9 Total Hemoglobin 10.5 L Ionized Calcium 1.3 O2 Delivery Device Nc O2 Liters/Min 2.0 FiO2 Communications Superintendent ID vossa Sodium 137.0 136 Potassium 6.0 H 6.5 H* Chloride 98 Carbon Dioxide 19 L Anion Gap 25.5 H BUN 103 H* Creatinine 5.4 H GFR Calculation Not Reportable Glucose 111.0 96 POC Glucose 106 Calculated Osmolality 283 L Calcium 9.9 Phosphorus 6.4 H Magnesium Total Bilirubin 0.3 AST 15 ALT 9 Alkaline Phosphatase 140 H Creatine Kinase 128 Total Protein 6.7 Albumin 3.0 L Globulin 3.7 Lipase TSH 9.87 H PTH Intact Calcium (PTH Intact) Urine Color Urine Appearance Urine pH Ur Specific [employer] Urine Protein Urine Glucose (UA) Urine Ketones Urine Blood Urine Nitrate Urine Bilirubin Urine Urobilinogen Ur Leukocyte Esterase Urine RBC Urine WBC Ur Squamous Epith Cells Amorphous Sediment Urine Bacteria Ur Random Sodium Ur Random Potassium Ur Random Chloride Hepatitis C Antibody 04/16/20 04/16/20 04/16/20 01:13 02:05 02:05 WBC RBC Hgb Hct MCV MCH MCHC RDW Plt Count MPV Neut % (Auto) Lymph % (Auto) Whitman % (Auto) Eos % (Auto) Baso % (Auto) Neut # (Auto) Lymph # (Auto) Whitman # (Auto) Eos # (Auto) Baso # (Auto) Nucleated RBC % (auto) Nucleated RBCs # PT 14.90 H INR 1.14 APTT Specimen Type Sample Site ABG pH ABG pCO2 ABG pO2 ABG HCO3 ABG O2 Saturation ABG Base Excess Ash Test A-a O2 Gradient Hematocrit Hgb O2 Saturation Carboxyhemoglobin Methemoglobin Total Hemoglobin Ionized Calcium O2 Delivery Device O2 Liters/Min FiO2 Communications Superintendent ID Sodium 137 Potassium 5.7 H Chloride 102 Carbon Dioxide 21 L Anion Gap 19.7 H BUN 94 H* Creatinine 5.2 H GFR Calculation Not Reportable Glucose 94 POC Glucose 186 Calculated Osmolality 284 L Calcium 8.9 Phosphorus Magnesium Total Bilirubin 0.3 AST 16 ALT 9 Alkaline Phosphatase 119 H Creatine Kinase Total Protein 6.5 L Albumin 2.4 L Globulin 4.1 Lipase TSH PTH Intact Calcium (PTH Intact) Urine Color Urine Appearance Urine pH Ur Specific [employer] Urine Protein Urine Glucose (UA) Urine Ketones Urine Blood Urine Nitrate Urine Bilirubin Urine Urobilinogen Ur Leukocyte Esterase Urine RBC Urine WBC Ur Squamous Epith Cells Amorphous Sediment Urine Bacteria Ur Random Sodium Ur Random Potassium Ur Random Chloride Hepatitis C Antibody 04/16/20 04/16/20 04/16/20 02:05 04:15 04:15 WBC 13.2 H RBC 3.37 L Hgb 9.6 L Hct 31.5 L MCV 93.5 MCH 28.5 MCHC 30.5 RDW 16.6 H Plt Count 413 H MPV 9.2 Neut % (Auto) 74.6 Lymph % (Auto) 13.9 Whitman % (Auto) 9.9 Eos % (Auto) 0.8 Baso % (Auto) 0.2 Neut # (Auto) 9.82 H Lymph # (Auto) 1.8 Whitman # (Auto) 1.3 H Eos # (Auto) 0.1 Baso # (Auto) 0.0 Nucleated RBC % (auto) 0 Nucleated RBCs # 0.0 PT INR APTT 29.1 Specimen Type Sample Site ABG pH ABG pCO2 ABG pO2 ABG HCO3 ABG O2 Saturation ABG Base Excess Ash Test A-a O2 Gradient Hematocrit Hgb O2 Saturation Carboxyhemoglobin Methemoglobin Total Hemoglobin Ionized Calcium O2 Delivery Device O2 Liters/Min FiO2 Communications Superintendent ID Sodium 136 Potassium 5.8 H Chloride 100 Carbon Dioxide 21 L Anion Gap 20.8 H BUN 100 H* Creatinine 5.2 H GFR Calculation Not Reportable Glucose 85 POC Glucose Calculated Osmolality 282 L Calcium 9.8 Phosphorus 5.2 H Magnesium 2.5 H Total Bilirubin 0.3 AST 15 ALT 9 Alkaline Phosphatase 120 H Creatine Kinase Total Protein 6.4 L Albumin 2.8 L Globulin 3.6 Lipase TSH PTH Intact Calcium (PTH Intact) Urine Color Urine Appearance Urine pH Ur Specific [employer] Urine Protein Urine Glucose (UA) Urine Ketones Urine Blood Urine Nitrate Urine Bilirubin Urine Urobilinogen Ur Leukocyte Esterase Urine RBC Urine WBC Ur Squamous Epith Cells Amorphous Sediment Urine Bacteria Ur Random Sodium Ur Random Potassium Ur Random Chloride Hepatitis C Antibody 04/16/20 04/16/20 04/16/20 04:15 09:23 10:15 WBC RBC Hgb Hct MCV MCH MCHC RDW Plt Count MPV Neut % (Auto) Lymph % (Auto) Whitman % (Auto) Eos % (Auto) Baso % (Auto) Neut # (Auto) Lymph # (Auto) Whitman # (Auto) Eos # (Auto) Baso # (Auto) Nucleated RBC % (auto) Nucleated RBCs # PT INR APTT Specimen Type Arterial Sample Site Brachial, right ABG pH 7.48 H ABG pCO2 31.2 L ABG pO2 91.5 ABG HCO3 23.0 ABG O2 Saturation 97.7 ABG Base Excess 0.0 Ash Test N/a A-a O2 Gradient 67.0 H Hematocrit 31.0 L Hgb O2 Saturation 96.2 Carboxyhemoglobin 0.4 Methemoglobin 1.1 Total Hemoglobin 10.1 L Ionized Calcium 1.2 O2 Delivery Device Nc O2 Liters/Min 2.0 FiO2 28.0 Communications Superintendent ID gd Sodium 138.0 135 L Potassium 5.1 H 5.5 H Chloride 99 Carbon Dioxide 22 Anion Gap 19.5 H BUN 85 H* Creatinine 4.8 H GFR Calculation Not Reportable Glucose 146.0 H 152 H POC Glucose Calculated Osmolality 283 L Calcium 8.4 L Phosphorus Magnesium Total Bilirubin 0.2 AST 19 ALT 9 Alkaline Phosphatase 114 H Creatine Kinase 209 H Total Protein 6.3 L Albumin 2.4 L Globulin 3.9 Lipase TSH PTH Intact 31.0 Calcium (PTH Intact) 9.3 Urine Color Urine Appearance Urine pH Ur Specific [employer] Urine Protein Urine Glucose (UA) Urine Ketones Urine Blood Urine Nitrate Urine Bilirubin Urine Urobilinogen Ur Leukocyte Esterase Urine RBC Urine WBC Ur Squamous Epith Cells Amorphous Sediment Urine Bacteria Ur Random Sodium Ur Random Potassium Ur Random Chloride Hepatitis C Antibody 04/16/20 13:55 WBC RBC Hgb Hct MCV MCH MCHC RDW Plt Count MPV Neut % (Auto) Lymph % (Auto) Whitman % (Auto) Eos % (Auto) Baso % (Auto) Neut # (Auto) Lymph # (Auto) Whitman # (Auto) Eos # (Auto) Baso # (Auto) Nucleated RBC % (auto) Nucleated RBCs # PT INR APTT Specimen Type Arterial Sample Site Brachial, right ABG pH 7.49 H ABG pCO2 33.6 L ABG pO2 84.1 ABG HCO3 25.4 ABG O2 Saturation 95.8 ABG Base Excess 2.3 H Ash Test N/a A-a O2 Gradient 71.4 H Hematocrit 32.5 L Hgb O2 Saturation 95.1 Carboxyhemoglobin Methemoglobin 1.0 Total Hemoglobin 10.6 L Ionized Calcium 1.2 O2 Delivery Device Nc O2 Liters/Min 2.0 FiO2 28.0 Communications Superintendent ID gd Sodium 139.0 Potassium 4.9 Chloride Carbon Dioxide Anion Gap BUN Creatinine GFR Calculation Glucose 59.0 L POC Glucose Calculated Osmolality Calcium Phosphorus Magnesium Total Bilirubin AST ALT Alkaline Phosphatase Creatine Kinase Total Protein Albumin Globulin Lipase TSH PTH Intact Calcium (PTH Intact) Urine Color Urine Appearance Urine pH Ur Specific [employer] Urine Protein Urine Glucose (UA) Urine Ketones Urine Blood Urine Nitrate Urine Bilirubin Urine Urobilinogen Ur Leukocyte Esterase Urine RBC Urine WBC Ur Squamous Epith Cells Amorphous Sediment Urine Bacteria Ur Random Sodium Ur Random Potassium Ur Random Chloride Hepatitis C Antibody Micro: Microbiology 04/16/20 09:00 Blood Culture - Preliminary Blood SPECIMEN COLLECTED 04/16/20 09:00 Blood Culture - Preliminary Blood SPECIMEN COLLECTED Cardiac Studies: No Data to Display
[2020-04-16 14:29] LABS: Hepatitis B Surface AB 3.5 (0-8.5)
[2020-04-16 14:30] LABS: Hepatitis C Virus Antibody Non-Reactive (Nonreactive)
--- NOTE | 2020-04-16 14:30 | P.CONIM_ITS ---
Providers/Reason For Consult Consulting Physican/Specialty*: Rogelio Mathews MD Reason for Consult*: Acute renal failure Attending Physician: Milagros Mcpherson MD Primary Care Provider: Huang Herrera MD, [facility] History of Present Illness History of Present Illness Chief Complaint: Short of breath History of present illness: Ms Leatha Emery is a 69 year old female morbidly obese with multiple medical comorbidities comes to the [facility] on weekly basis for her bilateral persistent lymphedema and leg ulcers, patient was admitted on the hospitalist service recently because of worsening shortness of breath and hemodynamic instability, patient had worsening kidney functions that responded to conservative management temporarily then she developed worsening shortness of breath that will require emergent hemodialysis catheter placement. Surgery was consulted by nephrology service for HD placement Review of Systems General: Reports: ROS unobtainable due to medical condition Meds/Allergies Home Medications and Allergies Home Medications Medication Instructions Recorded Confirmed Last Taken Type Breo Ellipta 1 inh INHALATION DAILY 01/30/20 04/15/20 04/15/20 History Farxiga 5 mg PO DAILY 01/30/20 04/15/20 04/15/20 History Toviaz 4 mg PO DAILY 01/30/20 04/15/20 04/15/20 History Tradjenta 5 mg PO DAILY 01/30/20 04/15/20 04/15/20 History acetaminophen 650 mg PO QID PRN 01/30/20 04/15/20 01/29/20 History amlodipine 5 mg PO DAILY 01/30/20 04/15/20 04/15/20 History aripiprazole 5 mg PO BID 01/30/20 04/15/20 04/15/20 History bisacodyl 10 mg PA DAILY PRN 01/30/20 04/15/20 01/30/20 History calcium carbonate 500 mg PO DAILY 01/30/20 04/15/20 04/15/20 History fluticasone propionate 2 spray INTRANASAL DAILY 01/30/20 04/15/20 04/15/20 History furosemide [Lasix] 40 mg PO DAILY 01/30/20 04/15/20 04/15/20 History levothyroxine 125 mcg PO DAILY 01/30/20 04/15/20 04/15/20 History lisinopril 10 mg PO DAILY 01/30/20 04/15/20 04/15/20 History magnesium hydroxide [Milk of 30 ml PO DAILY PRN 01/30/20 04/15/20 01/29/20 History Magnesia] melatonin 5 mg PO DAILY 01/30/20 04/15/20 04/14/20 History metoprolol tartrate 100 mg PO BID 01/30/20 04/15/20 04/15/20 History mirtazapine 45 mg PO DAILY 01/30/20 04/15/20 04/15/20 History multivitamin 1 tab PO DAILY 01/30/20 04/15/20 04/15/20 History nystatin 1 applic TOPICAL BID 01/30/20 04/15/20 04/15/20 History oxycodone-acetaminophen 1 tab PO DAILY 01/30/20 04/15/20 04/15/20 History oxycodone-acetaminophen 1 tab PO Q4H PRN 01/30/20 04/15/20 04/14/20 History pantoprazole 40 mg PO DAILY 01/30/20 04/15/20 04/15/20 History polyethylene glycol 3350 [Miralax] 17 g PO DAILY PRN 01/30/20 04/15/20 01/30/20 History senna 8.6 mg PO BID 01/30/20 04/15/20 04/15/20 History simvastatin 20 mg PO DAILY 01/30/20 04/15/20 04/14/20 History trazodone 200 mg PO BEDTIME 01/30/20 04/15/20 04/14/20 History venlafaxine 150 mg PO DAILY 01/30/20 04/15/20 04/15/20 History amino acids-protein hydrolys 1 ea PO DAILY 04/15/20 04/15/20 04/15/20 History [Pro-Stat AWC] levofloxacin [Levaquin] 750 mg PO DAILY 04/15/20 04/15/20 04/14/20 History Allergies Allergy/AdvReac Type Severity Reaction Status Date / Time clarithromycin Allergy Unknown Unknown Verified 04/16/20 14:33 hydrocodone Allergy Unknown Unknown Verified 04/16/20 14:33 metformin Allergy Unknown Unknown Verified 04/16/20 14:33 sitagliptin [From Januvia] Allergy Unknown Unknown Verified 04/16/20 14:33 tetanus and diphtheria Allergy Unknown Unknown Verified 04/16/20 14:33 toxoids triamcinolone Allergy Unknown Unknown Verified 04/16/20 14:33 Current Medications Current Medications Generic Name Dose Route Start Last Admin Trade Name Freq PRN Reason Stop Dose Admin Aripiprazole 5 mg 04/16/20 09:00 04/16/20 09:17 Abilify PO 5 mg BID SWATI Administration Atorvastatin Calcium 20 mg 04/16/20 09:00 04/16/20 09:17 Lipitor PO 20 mg DAILY SWATI Administration Fluticasone Propionate 2 spray 04/16/20 09:00 04/16/20 09:24 Flonase INTRANASAL 1 inhalation DAILY SWATI Administration Heparin Sodium (Beef Lung) 5,000 unit 04/15/20 20:30 04/16/20 11:48 Heparin SUBCUT 5,000 unit Q8H SWATI Administration Ceftriaxone Sodium 1,000 mg/ 50 mls @ 100 mls/hr 04/15/20 21:00 04/15/20 21:45 Sodium Chloride IV Infused Q24H SWATI Infusion Protocol Insulin Aspart 0 unit 04/15/20 21:00 04/16/20 11:47 Novolog SUBCUT 2 unit WM&BEDTIME SWATI Administration Protocol Levothyroxine Sodium 125 mcg 04/16/20 09:00 04/16/20 09:17 Synthroid PO 125 mcg DAILY SWATI Administration Lorazepam 1 mg 04/15/20 19:10 04/16/20 11:48 Ativan IVP 1 mg Q6H PRN Administration ANXIETY Metoprolol Tartrate 50 mg 04/16/20 09:00 04/16/20 09:17 Lopressor PO 50 mg BID SWATI Administration Multivitamins Therapeutic 1 tab 04/16/20 09:00 04/16/20 09:17 Multivitamin Tab PO 1 tab DAILY SWATI Administration Nystatin 1 applic 04/16/20 09:00 04/16/20 09:18 Nystatin Powder TOPICAL 1 applic BID SWATI Administration Trazodone HCl 200 mg 04/15/20 21:00 04/15/20 21:16 Desyrel PO 200 mg BEDTIME SWATI Administration PFSH Acute PFSH: Medical History Chronic kidney disease, stage 3 COPD (chronic obstructive pulmonary disease) Diabetic nephropathy Hypertension Hypothyroidism Leg ulcer, left PVD (peripheral vascular disease) Sleep apnea Type 2 diabetes mellitus Vascular dementia Surgical History History of bilateral knee arthroplasty S/P breast lumpectomy Family History Father Diabetes Hypertension Mother CAD (coronary artery disease) Hypertension Social History Smoking and tobacco status: never smoked Alcohol intake: never Household members: other Housing: Intermediate Current gender identity: Female Additional social history: -[place] [facility] [place] Vitals/I&O/Wt Last Vital Signs Temp 98.3 F 04/15/20 20:00 Pulse 104 H 04/16/20 13:49 Resp 24 H 04/16/20 06:00 BP 107/54 04/16/20 06:00 Pulse Ox 95 04/16/20 13:49 04/15/20 04/16/20 04/16/20 22:59 06:59 14:59 Intake Total 50 / 50 1150 / 1200 Output Total 450 / 450 Balance 50 / 50 700 / 750 Weight last 48 hrs Weight 203 lb Physical Exam Narrative: EXAM NARRATIVE: Patient is conscious alert oriented X3 Head and neck examination PERRLA no masses no cervical lymphadenopathy no jaundice Abdomen nontender nondistended soft no organomegaly guarding or rigidity/no signs of peritonitis Obese Data Micro: Micro: Microbiology 04/16/20 09:00 Blood Culture - Pr eliminary Blood SPECIMEN [facility] LION 04/16/20 09:00 Blood Culture - Pr eliminary Blood SPECIMEN [facility] A&P Assessment and plan (1) PERRY (acute kidney injury): Plan of care; After limited history physical examination and reviewing the chart,patient and patient's family was counsled for emergent Hemodialysis access placement, indications, risks including pneumothorax and injury of major vascular structures, benefits,indications and alternatives were all discussed with the,patient and family understand and are interested to proceed. Rationale was carefully and clearly discussed with the patient.Appropriate informed consent have been reviewed and signed. Status: Acute Consult Attestations Medical Necessity Statement: per hospitalist service Time Spent in Patient Care: (>than 50% of time spent in counselling and/or direct pt care on unit) . Critical Care Time: Critical Care Time (min): 60 Coding Level of Care Code Acute Shirt Trimmer for g Fwd Diagnoses PERRY (acute kidney injury) N17.9
[2020-04-16 14:31] LABS: Hepatitis B Surface Antigen Non-Reactive (Nonreactive)
[2020-04-16 15:50] LABS: D Dimer 2.73 ug/mIFEU (0-0.59)
--- NOTE | 2020-04-16 15:54 | XR_ITS ---
WS: [id number] Portable AP supine chest, 04/16/2020 Clinical Data: et tube placement Comparison: Portable chest, 04/15/2020. Findings: The endotracheal tube is within the right mainstem bronchus. It needs to be retreated four centimeters. There is an internal jugular venous catheter which has been inserted on the right and en ds in the superior vena cava. No pneumothorax is noted. The heart size remains the same. No pneumonia seen. There are monitor leads on the chest wall. XR/XR chest 1V portable [id number] Impression: 1. Endotracheal tube enters right mainstem bronchus and needs to be retreated f or centimeters. 2. Internal jugular venous catheter ends in superior vena cava. 3. The ICU was contacted at 1628 hours.
--- NOTE | 2020-04-16 16:00 | PC.NURSE ---
HD CATHETER PLACEMENT DONE BY DR CARRANZA FOR EMERGENT DIALYSIS. OR STAFF/ANESTHESIA HERE FOR PROCEDURE. PT ENDED UP INTUBATED D/T UNABLE TO STAY STILL LONG ENOUGH FOR INSERTION OF CATH. PLACED ON VENTILATOR BY RT. SEE ANESTHESIA & SURGEON NOTES REGARDING PROCEDURE. FAMILY AWARE OF PT STATUS. DR CANNON AT BEDSIDE MULTIPLE TIMES DURING SHIFT
--- NOTE | 2020-04-16 16:03 | P.PCN_ITS ---
Procedure/Consent Consent: Consent for Procedure: Consent obtained from patient Procedure Narrative: Pre Procedure diagnosis; acute renal failure/shortness of breath Postprocedure diagnoses the same Procedure done; placement of 12 Macedonian temporary dialysis catheter in emergency stiuation Indication acute renal failure LOCATION ICU Surgeon Carla Mathews MD retail service technician Amanda Circulating nurses Thais and Zoya Beverly GETA/propofol drip Outside Plant Cable Engineer Celestino Verma and Dr Clinton Medications were reviewed to assess for anticoagulant usage.Risks and benefits and prevention of central line associated blood stream infection (CLABSI) were discussed with the patient/CPOA, and a consent was obtained.Monitors were in place and monitored throughout the procedure. All necessary supplies were available prior to start. Hand hygiene was completed prior to starting.Maximum barrier technique was utilized including a sterile gown, sterile gloves with a hat and mask. Site was was prepped with [chlorhexidine] and a full body drape was placed. 5 mL of 2% lidocaine was injected into the skin with a 25 gauge needle. Patient is COVID-19 pending results Time-out was done Description Local anesthetic in the form of 1% lidocaine infiltrated at the site of insertion of the catheter Prep& drape was done under the usual sterile technique of upper chest right and Neck, lidocaine 1% was injected at the site of the stick, started by right IJ vein stick that retrieved venous blood was obtained from the under U/S guidance,yet the patient was moving and all attempts were not successful,unfortunatley sedating the patient would compromise her air way and thus I asked the anathesia team to intubate the patient to have an air way control and be able to start sedation to help having a safe access to start the dialysis without delay. Aftre intubation,reprep and drape was under the usual sterile technique. At this point under U/S guidance and with my personal interpretation.I was able to access the Right IJ vein as there was no evidence of Intraluminal thrombosis. A guidewire was then threaded and there was no PVC changes, at that point the guidewire was secured and the needle was taken out,followed by that serial dilators,the dilator was then taken out,glide wire maintained to be in good position and the hemodialysis catheter 12 Macedonian was introduced onto the guidewire, with venous and arterial hubs were flushed and retrieved venous blood without difficulty Caps were then applied Post procedure chest x-ray was done, showed catheter in good position and no pneumothorax Patient tolerated the procedure well I Was present for the whole entire procedure
[2020-04-16 16:46] LABS: Glucose Point of Care 87 mg/dL (70-110)
--- NOTE | 2020-04-16 18:29 | US_ITS ---
WS: [id number] RENAL ULTRASOUND Bladder ultrasound HISTORY: toro COMPARISON: 03/13/2020 TECHNIQUE: 2-D and color Doppler imaging of the kidney submitted. Extremely limited evaluation of the kidneys and bladder due to body habitus. Right kidney: 9.2 cm x 5.9 cm x 5.4 cm. Limited evaluation of the RIGHT kidney. Cannot exclude mass or hydronephrosis. Left kidney: 8.5 cm x 4.3 cm x 4.6 cm. Extremely limited evaluation of the RIGHT kidney. Cannot exclude mass or hydronephrosis. Aorta: Not visualized. Urinary Bladder: Not visualized. Bladder appears to be empty. US/US renal BI with bladder IMPRESSION: 1. Extremely limited evaluation of the kidneys due to body habitus. 2. Cannot exclude mass or hydronephrosis. 3. Nondistended bladder.
[2020-04-16 18:36] LABS: Glucose Point of Care 160 mg/dL (70-110)
[2020-04-16 18:36] LABS: Glucose Point of Care 144 mg/dL (70-110)
[2020-04-16] MEDS: propofol 1,000 MG/100 ML INJ 11 MG IV (19:40)
--- NOTE | 2020-04-16 20:21 | PC.NURSE ---
1000- PT PLEASANTLY CONFUSED. THRASHING LEGS AROUND ON BED, PERICARE DONE, DRESSING CHANGE DONE TO BLE, DR CANNON AT BEDSIDE. LABS DRAWN FOR BLOOD CULTURES, REPOSITIONED, LINE NS CHANGED.
[2020-04-16] MEDS: propofol 1,000 MG/100 ML INJ 13.8 MG IV (20:24)
--- NOTE | 2020-04-16 20:24 | PC.NURSE ---
PT TACHYPNEA 30'S DR CANNON AWARE. RT AWARE, ABG DRAWN EKG DONE DR BARRON VISITED W/ PT. WANTS DIALYSIS DONE TODAY AWAITING FURTHER ORDERS
[2020-04-16] MEDS: cefTRIAXone 1,000 MG in sodium chloride 0.9% (plus) 50 ML 100 MG IV (20:56)
[2020-04-16] MEDS: piperacillin-tazobactam 3.375 GM in sodium chloride 0.9% (plus) 50 ML IV (20:57)
[2020-04-16 21:16] LABS: Glucose Point of Care 109 mg/dL (70-110)
[2020-04-17] VITALS (62 sets, daily range): BP systolic 71–143; BP diastolic 40–81; PULSE 77–144; RESP 11–33; TEMP 36.7–38.4; O2SAT 80–100
[2020-04-17] MEDS: propofol 1,000 MG/100 ML INJ 11 MG IV (04:49)
[2020-04-17] MEDS: acetaminophen 325 mg Tablet 650 MG PO (04:57)
[2020-04-17] MEDS: heparin 5,000 unit/mL INJ 1 mL 5000 UNIT SUBCUT ×3 (04:57→21:16)
[2020-04-17 05:11] LABS: ABG PCO2 37.1 mmHg (35-45); ABG PH Result 7.48 (7.35-7.45); Arterial Blood Gas Hematocrit 37.7 % (37-47); Blood Gas Sample Site Brachial, right; Blood Gas Sample Type Arterial; HCO3 ABG 27.6 mmol/L (22-26); Oxygen Device VENT
[2020-04-17 05:36] LABS: Basophils % 0.2 %; Eosinophils # 0.4 10^3/uL (0.0-0.8); Eosinophils % 3.2 %; Hematocrit 30.6 % (37.0-47.0); Hemoglobin 9.8 g/dL (11.5-15.3); Lymphocytes # 2.3 10^3/uL (0.8-4.8); Lymphocytes % 18.4 %; Mean Corpuscular Hemoglobin 29.6 pg (28.0-34.0); Mean Corpuscular Volume 92.4 fL (81-99); Mean Platelet Volume 9.3 fL (7.4-10.4); Monocytes # 1.4 10^3/uL (0.2-0.9); Monocytes % 10.9 %; Neutrophils # 8.42 10^3/uL (1.8-7.7); Neutrophils % 66.6 %; Nucleated Red Blood Cells % 0 %; Platelet Count 372 10^3/cmm (130-400); Red Blood Count 3.31 10^6/uL (4.1-5.3); Red Cell Distribution Width 16.5 % (12.1-15.1); White Blood Count 12.7 10^3/uL (4.0-10.0)
--- NOTE | 2020-04-17 05:57 | PM.PN ---
Subjective Subjective: Interval history: Patient had to be intubated for the purpose of placement of hemodialysis catheter as she was agitated during the procedure and had worsening shortness of breath with the Trendelenburg position. Continued to be on mechanical ventilation and received hemodialysis yesterday and 1200 mL were pulled out and required Levophed likely due to the continuous IV propofol sedation and Hemodialysis OG placed yesterday and had about 750 mL out Still COVID-19 results pending Improvement in kidney function CXR post procedure: Findings: The endotracheal tube is within the right mainstem bronchus. It needs to be retreated four centimeters. There is an internal jugular venous catheter which has been inserted on the right and ends in the superior vena cava. No pneumothorax is noted. The heart size remains the same. No pneumonia seen. There are monitor leads on the chest wall. 1. Endotracheal tube enters right mainstem bronchus and needs to be retreated for centimeters. 2. Internal jugular venous catheter ends in superior vena cava. 3. The ICU was contacted at 1628 hours. Vitals/I&O/Wt Last Vital Signs Temp 99.9 F H 04/16/20 16:00 Pulse 109 H 04/17/20 04:00 Resp 15 04/17/20 04:50 BP 122/66 04/17/20 04:00 Pulse Ox 97 04/17/20 04:00 04/16/20 04/16/20 04/17/20 14:59 22:59 06:59 Intake Total 702.083 / 702.083 660.05 / 1362.133 627.667 / 1989.800 Output Total 2100 / 2100 900 / 3000 Balance 702.083 / 702.083 -1439.95 / -737.867 -272.333 / -1010.200 Weight last 48 hrs Weight 203 lb Physical Exam Narrative: EXAM NARRATIVE: Patient is sedated on mechanical ventilation Head and neck examination PERRLA no masses no cervical lymphadenopathy no jaundice Right IJ vein hemodialysis catheter in place and no evidence of neck hematoma or chest wall crepitus Abdomen nontender nondistended soft no organomegaly guarding or rigidity/no signs of peritonitis Urinary Catheter Management^: Patino: Cath Placed During This Visit: no Reason for Continuing Indwelling Catheter: Accurate Measurement of Urinary Output in Critically Ill Patients Data : 04/17/20 04:45 04/17/20 04:45 Micro: Microbiology 04/16/20 09:00 Blood Culture - Preliminary Blood SPECIMEN COLLECTED 04/16/20 09:00 Blood Culture - Preliminary Blood SPECIMEN COLLECTED A&P Assessment and plan (1) PERRY (acute kidney injury): Plan of care; Continue hemodialysis catheter per nephrology recommendations Surgical standpoint of view patient can be weaned to be extubated, discussed with Dr. Keys Family updates from surgical standpoint of view as I did contact Mr. John rene on cell phone [phone],All questions have been answered. Will defer medical questions to Dr. Mcpherson and Dr. Bejarano Please call for questions or concerns Thank you for consulting general surgery to participate taking care Status: Acute Attestations Medical Necessity Statement*: Medical necessity care is expected to cross 2 midnights Time Spent in Patient Care: (>than 50% of time spent in counselling and/or direct pt care on unit). Coding Level of Care Code Acute Revenue Enforcement Agent for Darek Ojeda Diagnoses PERRY (acute kidney injury) N17.9
[2020-04-17 05:59] LABS: Alanine Aminotransferase 9 U/L (0-33); Albumin Level 2.4 g/dL (3.5-5.2); Alkaline Phosphatase 125 IU/L (35-105); Aspartate Amino Transferase 29 U/L (0-32); Blood Urea Nitrogen 49 mg/dL (8-23); Calcium 8.6 mg/dL (8.5-10.5); Carbon Dioxide 27 mmol/L (22-29); Chloride 99 mmol/L (98-107); Globulin 3.4 g/dL (1.3-4.6); Glucose 124 mg/dL (65-115); Magnesium 1.9 mg/dL (1.7-2.3); Osmolality Calculated 282 mOsm/kg (285-295); Phosphorus 3.3 mg/dL (2.5-4.5); Sodium 136 mmol/L (136-145); Total Bilirubin 0.2 mg/dL (0.15-1.2); Total Protein 5.8 g/dL (6.6-8.7)
--- NOTE | 2020-04-17 06:00 | XRR_ITS ---
PROCEDURE INFORMATION: Exam: XR Chest, 1 View Exam date and time: 04/17/2020 6:01 AM Age: 69 years old Clinical indication: Condition or disease; Patient HX: Pending covid results. Critically high potassium; Additional info: On vent support TECHNIQUE: Imaging protocol: XR of the chest Views: 1 view. COMPARISON: CR XR chest 1V portable [id number] 04/16/2020 4:14 PM FINDINGS: Tubes, catheters and devices: Endotracheal tube, central venous catheter, and feeding tube. The endotracheal tube terminates 4.5 cm above the brynn. Lungs: Interstitial prominence, chronic granulomatous disease, and basilar airspace disease. Pleural space: No significant pleural effusion. Heart/Mediastinum: Cardiomegaly. Diaphragm: Asymmetric elevation of the right hemidiaphragm. Bones/joints: Degenerative change. XR/XR chest 1V portable [id number] IMPRESSION: 1. Interstitial prominence, chronic granulomatous disease, and basilar airspace disease. 2. Endotracheal tube, central venous catheter, and feeding tube. The endotracheal tube terminates 4.5 cm above the brynn.
[2020-04-17 06:02] LABS: Anion Gap 14.1 (5-19); Potassium 4.1 mmol/L (3.5-5.1)
--- NOTE | 2020-04-17 08:03 | PM.PN ---
Subjective Subjective: Interval history: Patient remains on vent support though currently on weaning trial. Had 1600 mL urine output overnight with OG tube output of 600 mL. Sedated with propofol, Levophed added due to hypotension. Febrile with a T-max of 101.1F earlier this morning around 5 AM currently afebrile. Intermittently tachycardic, normotensive. AM labs show overall improvement with drop in leukocytosis, improved hemoglobin, improved renal function, normalization of electrolytes. Chest x-ray per my review shows improvement as well, pending report. COVID-19 test results pending, remains on isolation precautions. She did well with weaning trial and extubated earlier today. Noted to be quite confused, taking off her gown, tugging off telemetry leads and tugging at her IV lines. Requested sitter. Isolation precautions discontinued following COVID-19 negative test results. With question of alertness will keep n.p.o. Medications: Reviewed: Yes Medication Review Details: Active Medications Generic Name Dose Route Start Last Admin Trade Name Freq PRN Reason Stop Dose Admin Acetaminophen 650 mg 04/15/20 19:10 04/17/20 04:57 Tylenol PO 650 mg Q6H PRN Administration MILD PAIN Aripiprazole 5 mg 04/16/20 09:00 04/16/20 19:05 Abilify PO Not Given BID SWATI Atorvastatin Calci um 20 mg 04/16/20 09:00 04/16/20 09:17 Lipitor PO 20 mg DAILY SWATI Administration Dextrose 25 ml 04/15/20 19:10 D50w IVP ONCE PRN hypoglycemia prot ocol Protocol Dextrose 50 ml 04/15/20 19:10 D50w IVP PRN PRN hypoglycemia prot ocol Protocol Fluticasone Propio jovan 2 spray 04/16/20 09:00 04/16/20 09:24 Flonase INTRANASAL 1 inhalation DAILY SWATI Administration Glucagon 1 mg 04/15/20 19:10 Glucagen IM ONCE PRN Adult Acute Hypog lycemia Prot. Protocol Heparin Sodium (Be ef Lung) 5,000 unit 04/15/20 20:30 04/17/20 04:57 Heparin SUBCUT 5,000 unit Q8H SWATI Administration Dextrose 500 mls @ 100 mls /hr 04/15/20 19:10 D5w IV ONCE PRN Adult Acute Hypog lycemia Prot Protocol Ceftriaxone Sodium 1,000 mg/ 50 mls @ 100 mls/ hr 04/15/20 21:00 04/17/20 00:26 Sodium Chloride IV Infused Q24H SWATI Infusion Protocol Propofol 1,000 mg in 100 m ls @ 0 mls/hr 04/16/20 15:15 04/17/20 04:49 Diprivan IV 20 mcg/kg/min .Q0M SWATI 11 mls/hr Administration Protocol Per Protocol Norepinephrine Bit artrate 4 mg 254 mls @ 0 mls/h r 04/16/20 17:15 04/17/20 04:49 / Dextrose IV 12 mcg/min .Q0M SWATI 45.7 mls/hr Administration Protocol Per Protocol Piperacillin Sod/T azobactam 50 mls @ 12.5 mls /hr 04/16/20 20:30 04/17/20 00:25 Sod 3.375 gm/ So dium Chloride IV Infused Q12H SWATI Infusion Protocol As Directed Fentanyl 1,000 mcg / Sodium 100 mls @ 0 mls/h r 04/16/20 20:45 04/17/20 00:26 Chloride IV 50 mcg/hr .Q0M SWATI 5 mls/hr Titration Protocol Per Protocol Insulin Aspart 0 unit 04/15/20 21:00 04/17/20 08:02 Novolog SUBCUT Not Given WM&BEDTIME SWATI Protocol Levothyroxine Sodi um 125 mcg 04/16/20 09:00 04/16/20 09:17 Synthroid PO 125 mcg DAILY SWATI Administration Lorazepam 1 mg 04/15/20 19:10 04/16/20 11:48 Ativan IVP 1 mg Q6H PRN Administration ANXIETY Metoprolol Tartrat e 50 mg 04/16/20 09:00 04/16/20 19:05 Lopressor PO Not Given BID SWATI Multivitamins Ther apeutic 1 tab 04/16/20 09:00 04/16/20 09:17 Multivitamin Tab PO 1 tab DAILY SWATI Administration Nystatin 1 applic 04/16/20 09:00 04/16/20 19:08 Nystatin Powder TOPICAL Not Given BID SWATI Ondansetron HCl 4 mg 04/15/20 19:10 Zofran IVP Q6H PRN NAUSEA AND VOMITI NG Trazodone HCl 200 mg 04/15/20 21:00 04/16/20 21:10 Desyrel PO Not Given BEDTIME SWATI clarithromycin Allergy (Unknown, Verified 04/16/20 14:33) Unknown hydrocodone Allergy (Unknown, Verified 04/16/20 14:33) Unknown metformin Allergy (Unknown, Verified 04/16/20 14:33) Unknown sitagliptin [From Januvia] Allergy (Unknown, Verified 04/16/20 14:33) Unknown tetanus and diphtheria toxoids Allergy (Unknown, Verified 04/16/20 14:33) Unknown triamcinolone Allergy (Unknown, Verified 04/16/20 14:33) Unknown Vitals/I&O/Wt Last Vital Signs Temp 98.7 F 04/17/20 06:00 Pulse 93 04/17/20 06:00 Resp 17 04/17/20 07:27 BP 114/62 04/17/20 06:00 Pulse Ox 98 04/17/20 06:00 04/16/20 04/17/20 04/17/20 22:59 06:59 14:59 Intake Total 660.05 / 1362.133 627.667 / 1989.800 Output Total 2100 / 2100 900 / 3000 Balance -1439.95 / -737.867 -272.333 / -1010.200 Weight last 48 hrs Weight 92.079 kg Physical Exam Const: COMMON NORMALS: no acute distress GENERAL APPEARANCE: patient mechanically ventilated NUTRITIONAL APPEARANCE: obese morbidly obese OTHER: -Sedated, propofol just turned off HENMT: COMMON NORMALS: normocephalic, atraumatic and hearing grossly normal bilaterally HEAD & SCALP: normocephalic and atraumatic MOUTH: moist mucous membranes abnormal Details: parched OTHER: -OG tube in place Eye: COMMON NORMALS: Equal, round and reactive pupils present, EOMs intact bilaterally and conjunctivae normal CONJUNCTIVA: Yes conjunctivae normal PUPIL: Yes Equal, round and reactive pupils present Neck/C-Spine: COMMON NORMALS: full ROM GENERAL: Yes normal visual inspection and Yes trachea midline Resp: COMMON NORMALS: No retractions and No use of accessory muscles EFFORT & INSPECTION: Yes symmetric chest movement and No tachypneic OTHER: -on vent, pressure support currently Cardio: COMMON NORMALS: regular rate, regular rhythm, S1 normal heart sound present, S2 normal heart sound present and No murmurs present (Cardio) RATE: regular rate and tachycardic (Intermittently) RHYTHM: regular rhythm HEART SOUNDS: S1 normal heart sound present and S2 normal heart sound present GI: COMMON NORMALS: Soft to palpation INSPECTION: Yes central obesity and Yes visible herniation (large hiatal hernia) PALPATION: Yes Soft to palpation : BLADDER/KIDNEY EXAM: Yes catheter in place Catheter type (Female): urethral Extremity: COMMON NORMALS: normal to inspection and full ROM GENERAL: Yes edema (bilateral LE edema) Neuro: COMMON NORMALS: moves all extremities, no focal motor deficits and no sensory deficits noted Psych: OTHER: -Sedated Skin: COMMON NORMALS: no jaundice, no petechiae and no mottling OTHER: -noted bilateral LE ulcers, worse on the L, weeping edema, open ulcer on posterior L leg with superficial slough -chronic venous stasis dermatitis -excoriation in bilateral thighs, worse on the R Urinary Catheter Management^: Patino: Cath Placed During This Visit: no Reason for Continuing Indwelling Catheter: Accurate Measurement of Urinary Output in Critically Ill Patients Data : 04/17/20 04:45 04/17/20 04:45 Micro: Microbiology 04/16/20 09:00 Blood Culture - Preliminary Blood SPECIMEN COLLECTED 04/16/20 09:00 Blood Culture - Preliminary Blood SPECIMEN COLLECTED A&P Assessment and plan (1) Sepsis: -Present on admission as evidenced by leukocytosis, hypotension, tachycardia, tachypnea, acute renal failure and now has developed acute respiratory failure as well. Improving overall -had been on Ceftriaxone, switched to Zosyn due to vent support and need to broaden antibiotic spectrum -Noted improvement in leukocytosis today, continue to trend WBC -Febrile earlier this morning with a T-max of 101.1F, currently afebrile, intermittently tachycardic, remains on vent support with a weaning trial ongoing. Continue to monitor vital signs closely Status: Acute Qualifiers: Acute respiratory failure type: unspecified Sepsis acute organ dysfunction status: with acute organ dysfunction Sepsis type: sepsis due to unspecified organism Severe sepsis acute organ dysfunction type: acute respiratory failure Severe sepsis shock status: with septic shock Qualified Code(s): A41.9 - Sepsis, unspecified organism; R65.21 - Severe sepsis with septic shock; J96.00 - Acute respiratory failure, unspecified whether with hypoxia or hypercapnia (2) Acute respiratory failure: -Intubated during process of temporary dialysis catheter placement for airway protection due to noted acute mental status change and inability to maintain appropriate positioning -Remains on vent support; weaning trial today -Daily ABG, CXR while on vent -Sedation with propofol; turned off for weaning trial -hypotensive and required pressor support to maintain MAP 60-65 -on Zosyn -sputum cx and, gram stain polymicrobial -blood cx Status: Acute Qualifiers: Respiratory failure complication: unspecified whether with hypoxia or hypercapnia Qualified Code(s): J96.00 - Acute respiratory failure, unspecified whether with hypoxia or hypercapnia (3) Acute hyperkalemia: -noted to have acute hyperkalemia; normalized today after dialysis session yesterday -received calcium gluconate, insulin, D50 and kayexelate -telemetry monitoring -continue to monitor Status: Resolved (4) PERRY (acute kidney injury): -PERRY on CKD stage 3 -baseline Cr appears to be around 1.4 -PERRY is likely multifactorial given dehydration from poor oral intake, medication induced (on diuretics, ACEi) -Improved renal function following dialysis -hold nephrotoxins, renally dose meds -Nephrology consult by Dr. Wilkerson appreciated -Renal US unremarkable -renal lytes noted -Patino catheter placed in ED, monitor urine output; assess daily for removal -off IVF hydration due to development of fluid overload -Echo: EF=55%, mild MR -resolved anion gap metabolic acidosis; off bicarbonate drip Status: Acute (5) UTI (urinary tract infection): -UA indicative of infection -urine cx: GNRs, pending ID & sensitivity -on Zosyn -noted leukocytosis, febrile this AM; WBC trending down Status: Acute Qualifiers: Hematuria presence: without hematuria Urinary tract infection type: acute cystitis Qualified Code(s): N30.00 - Acute cystitis without hematuria (6) Chronic kidney disease, stage 3: -as noted above Status: Chronic (7) Vascular dementia: -with intermittent confusion -fall, aspiration precautions -re-orient as needed Status: Chronic Qualifiers: Dementia behavioral disturbance: with behavioral disturbance Qualified Code(s): F01.51 - Vascular dementia with behavioral disturbance (8) Type 2 diabetes mellitus: -last A1c-6.6 -Accucheks, ISS, hypoglycemia precautions -hold oral hypoglycemic agents -DM complicated by nephropathy, peripheral vascular disease, neuropathy Status: Chronic Qualifiers: Diabetes mellitus complication status: with other specified complication 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 insulin 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: without jail use Qualified Code(s): E11.69 - Type 2 diabetes mellitus with other specified complication (9) Diabetic nephropathy: -as noted above Status: Chronic Qualifiers: Diabetes mellitus type: type 2 Qualified Code(s): E11.21 - Type 2 diabetes mellitus with diabetic nephropathy (10) Hypertension: -diuretics, ACEi on hold due to renal impairment and hypotension -hold BB due to hypotension -close monitoring of vital signs Status: Chronic Qualifiers: Hypertension type: essential hypertension Qualified Code(s): I10 - Essential (primary) hypertension (11) Hypothyroidism: -on levothyroxine -TSH elevated (9.87), may need adjustment of levothyroxine dose Status: Chronic Qualifiers: Hypothyroidism type: unspecified Qualified Code(s): E03.9 - Hypothyroidism, unspecified Additional A&P Information -GERD; on PPI -Morbid obesity: BMI-36 kg/m2 -Peripheral vascular disease with bilateral LE ulcers; wound care as needed, elevation as tolerated. Recent CTA aorta with runoff. Has been following up with Dr. Peguero at [facility] -large hiatal hernia -Dyslipidemia; on statin -Chronic pain; on narcotics -consistent carb diet -hold PPI due to renal impairment -DVT ppx with heparin -Dispo: came from [facility] [place] -Code status: FULL code, discussed with patient at bedside -ICU care due to acute renal failure, isolation precautions due to COVID-19 testing, need for dialysis, vent and pressor support Attestations Medical Necessity Statement*: Patient requires hospitalization for continued management of acute renal failure requiring dialysis, acute respiratory failure, on vent support pending weaning trial. Time Spent in Patient Care: Greater than 35 minutes (>than 50% of time spent in counselling and/or direct pt care on unit). Critical Care Time: The high probability of a clinically significant, sudden or life threatening deterioration of the patient's [cardiovascular, respiratory] system(s) required my full and direct attention, intervention and personal management. The critical care time is as shown. This time is in addition to time spent performing any reported procedures but includes the following: [x] Data and vital sign review and interpretation [x] Patient assessment, examination and intervention [x] Documentation [x] Medication orders and management Critical Care Time (min): 20 Coding Level of Care Code Acute Sports Lawyer for Chg Fwd Exam Comprehensive Diagnoses Sepsis A41.9; R65.21; J96.00 Acute respiratory failure type: unspecified Sepsis acute organ dysfunction status: with acute organ dysfunction Sepsis type: sepsis due to unspecified organism Severe sepsis acute organ dysfunction type: acute respiratory failure Severe sepsis shock status: with septic shock Acute respiratory failure J96.00 Respiratory failure complication: unspecified whether with hypoxia or hypercapnia Acute hyperkalemia E87.5 PERRY (acute kidney injury) N17.9 UTI (urinary tract infection) N30.00 Hematuria presence: without hematuria Urinary tract infection type: acute cystitis Chronic kidney disease, stage 3 N18.3 Vascular dementia F01.51 Dementia behavioral disturbance: with behavioral disturbance Type 2 diabetes mellitus E11.69 Diabetes mellitus complication status: with other specified complication 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 insulin use: without intermediate school teacher use Diabetic nephropathy E11.21 Diabetes mellitus type: type 2 Hypertension I10 Hypertension type: essential hypertension Hypothyroidism E03.9 Hypothyroidism type: unspecified
[2020-04-17 08:20] LABS: Glucose Point of Care 129 mg/dL (70-110)
[2020-04-17] MEDS: metoprolol tartrate 50 mg Tablet PO (08:54)
[2020-04-17] MEDS: piperacillin-tazobactam 3.375 GM in sodium chloride 0.9% (plus) 50 ML IV ×2 (08:54→21:16)
[2020-04-17] MEDS: ARIPiprazole 10 mg Tablet 5 MG PO (08:54)
[2020-04-17] MEDS: atorvastatin 40 mg Tablet 20 MG PO (08:55)
[2020-04-17] MEDS: multivitamin therapeutic Tablet 1 TAB PO (08:55)
[2020-04-17] MEDS: nystatin powder 15 gm Btl 1 APPLIC TOPICAL (08:55)
[2020-04-17] MEDS: levothyroxine 125 mcg Tablet PO (08:55)
--- NOTE | 2020-04-17 10:20 | P.PN_ITS ---
Subjective Subjective: Interval history: Acute kidney injury, hyperkalemia s/p hemodialysis 04/16/2020 UTI, possible sepsis Extubated this morning Medications: Reviewed: Yes Vitals/I&O/Wt Last Vital Signs Temp 98.3 F 04/17/20 08:00 Pulse 101 H 04/17/20 08:00 Resp 17 04/17/20 09:19 BP 123/63 04/17/20 08:00 Pulse Ox 97 04/17/20 08:00 04/16/20 04/17/20 04/17/20 22:59 06:59 14:59 Intake Total 660.05 / 1362.133 627.667 / 1989.800 Output Total 2100 / 2100 900 / 3000 500 / 500 Balance -1439.95 / -737.867 -272.333 / -1010.200 -500 / -500 Weight last 48 hrs Weight 92.079 kg Physical Exam Const: COMMON NORMALS: no acute distress GENERAL APPEARANCE: lethargic NUTRITIONAL APPEARANCE: obese ORIENTATION/CONSCIOUSNESS: Yes lethargic Resp: COMMON NORMALS: clear to auscultation bilaterally AUSCULTATION: clear to auscultation bilaterally Cardio: COMMON NORMALS: regular rhythm RHYTHM: regular rhythm Extremity: OTHER: bilateral edema, ulcer left heel Neuro: SENSORIUM/ORIENTATION: Yes lethargic Urinary Catheter Management^: Patino: Cath Placed During This Visit: no Reason for Continuing Indwelling Catheter: Accurate Measurement of Urinary Output in Critically Ill Patients Data : 04/17/20 04:45 04/17/20 04:45 Other Labs: 7.48/37/131 on 40%, albumin 2.4, CK 209, calcium 8.6, Phos 3.3, Mg 1.9 Micro: Microbiology 04/16/20 09:00 Blood Culture - Preliminary Blood NEGATIVE TO DATE 04/16/20 09:00 Blood Culture - Preliminary Blood NEGATIVE TO DATE 04/15/20 16:45 Urine Culture - Preliminary Urine,Clean Catch Gram Negative Rods 04/16/20 16:40 Gram Stain - Final Sputum - Endotracheal Tube Aspirate A&P Additional A&P Information Impression: 1. Acute kidney injury, hyperkalemia, s/p dialysis. Good urine output, potassium normal today 2. Chronic kidney disease due to diabetes 3. Urinary tract infection, GNR, BC negative to date Recommend: No indication for dialysis today. Continue to hold ACEi. Attestations Medical Necessity Statement*: critically ill in ICU Time Spent in Patient Care: 16 - 35 minutes Coding Level of Care Code Acute Data Operations Leader for Darek Ojeda
[2020-04-17 12:05] LABS: Anti-streptolysin O 100 IU/mL (<200)
[2020-04-17 12:10] LABS: Glucose Point of Care 154 mg/dL (70-110)
[2020-04-17 13:44] LABS: Coronavirus Lab Test PTC Negative
[2020-04-17 15:48] LABS: ABG PCO2 37.5 mmHg (35-45); ABG PH Result 7.48 (7.35-7.45); Arterial Blood Gas Hematocrit 29.6 % (37-47); Base Excess ABG 4.2 mmol/L (-2.0-2.0); Blood Gas Allen Test Pos; Blood Gas Sample Site Brachial, left; Blood Gas Sample Type Arterial; HCO3 ABG 27.9 mmol/L (22-26); Oxygen Device NC; PO2 ABG 81.7 mmHg (80.0-100.0)
--- NOTE | 2020-04-17 16:40 | PC.RESP ---
PATIENT RESIDES IN A [facility] FACILITY AND DOES NOT QUALIFY FOR PULMONARY REHAB.
--- NOTE | 2020-04-17 17:18 | PC.NURSE ---
Restraints are off at this time. Sitter is with patient.
--- NOTE | 2020-04-17 17:43 | PC.NURSE ---
I spoke with Dr Rocha about patient condition and her issues with swallowing. He recommended a dobhoff or TPN. He stated he would consult with Dr Mcpherson and then we will go from there. Patient is not sucking trough a straw very effectively and I feel she will struggle to swallow any pills/medications at this time. She is not able to feed herself either. Patient seems to be confused and restless at her baseline.
[2020-04-17 18:38] LABS: Glucose Point of Care 116 mg/dL (70-110)
--- NOTE | 2020-04-17 19:00 | PC.NURSE ---
Report received from ILA Castillo. Patient is very restless. Attempting to pull at catheter, dialysis catheter, and IVs. Sitter at bedside. Patient is not currently in restraints. Levophed is currently running at 6 mcg/min. Vitals signs are stable.
[2020-04-17 21:25] LABS: Glucose Point of Care 109 mg/dL (70-110)
[2020-04-17] MEDS: LORazepam 2 mg/mL INJ 1 mL 1 MG IVP (23:07)
[2020-04-18] VITALS (27 sets, daily range): BP systolic 79–132; BP diastolic 43–92; PULSE 83–116; RESP 13–30; TEMP 36.6–37.1; O2SAT 81–100
[2020-04-18] MEDS: heparin 5,000 unit/mL INJ 1 mL 5000 UNIT SUBCUT ×2 (04:37→21:12)
[2020-04-18 05:13] LABS: Basophils % 0.1 %; Eosinophils # 0.6 10^3/uL (0.0-0.8); Eosinophils % 4.6 %; Hematocrit 29.6 % (37.0-47.0); Hemoglobin 9.2 g/dL (11.5-15.3); Lymphocytes % 23.9 %; Mean Corpuscular HGB Conc 31.1 g/dL (30.0-36.0); Mean Corpuscular Hemoglobin 29.2 pg (28.0-34.0); Mean Platelet Volume 9.2 fL (7.4-10.4); Monocytes # 1.4 10^3/uL (0.2-0.9); Monocytes % 11.2 %; Neutrophils # 7.49 10^3/uL (1.8-7.7); Neutrophils % 59.8 %; Nucleated Red Blood Cells % 0 %; Platelet Count 306 10^3/cmm (130-400); Red Blood Count 3.15 10^6/uL (4.1-5.3); Red Cell Distribution Width 16.3 % (12.1-15.1); White Blood Count 12.5 10^3/uL (4.0-10.0)
[2020-04-18 05:34] LABS: Alanine Aminotransferase 12 U/L (0-33); Albumin Level 2.1 g/dL (3.5-5.2); Alkaline Phosphatase 119 IU/L (35-105); Aspartate Amino Transferase 42 U/L (0-32); Blood Urea Nitrogen 37 mg/dL (8-23); Calcium 8.1 mg/dL (8.5-10.5); Carbon Dioxide 28 mmol/L (22-29); Chloride 102 mmol/L (98-107); Globulin 3.7 g/dL (1.3-4.6); Glucose 95 mg/dL (65-115); Osmolality Calculated 287 mOsm/kg (285-295); Phosphorus 3.6 mg/dL (2.5-4.5); Sodium 140 mmol/L (136-145); Total Bilirubin 0.3 mg/dL (0.15-1.2); Total Protein 5.8 g/dL (6.6-8.7)
[2020-04-18 05:50] LABS: Anion Gap 13.4 (5-19); Potassium 3.4 mmol/L (3.5-5.1)
--- NOTE | 2020-04-18 06:45 | PC.NURSE ---
Addendum entered by Camelia Terry RN 04/18/20 06:47: Witnessed waste. Original Note: Wasted 72 mL of Fentanyl. ILA Denise witnessed waste.
[2020-04-18 08:26] LABS: Glucose Point of Care 103 mg/dL (70-110)
--- NOTE | 2020-04-18 08:59 | PM.PN ---
Subjective Subjective: Interval history: Sitter at bedside, patient was very restless overnight. Remains on pressor support due to hypotension, blood pressure this morning is improving. Had spiked a temperature of 101.1 yesterday morning, has been afebrile since. On 3 L nasal cannula. Stable leukocytosis, slight drop in hemoglobin, improved renal function, mild hypokalemia. Had 800 mL urine output overnight. By mid-morning she became more awake, alert, very uncomfortable during dressing change due to pain. Apparently asking to go home and come back to the hospital tomorrow. Then requested something to eat but did not like the soup that was brought. Towards the afternoon, more restless, sitter at bedside. Able to update son Hugo over the phone. Case discussed earlier with Dr. Osborne. Will request removal of temporary dialysis catheter. Switch to Primaxin due to ESBL E. coli in urine culture. Placed on contact isolation precautions. Medications: Reviewed: Yes Medication Review Details: Active Medications Generic Name Dose Route Start Last Admin Trade Name Freq PRN Reason Stop Dose Admin Acetaminophen 650 mg 04/15/20 19:10 04/17/20 04:57 Tylenol PO 650 mg Q6H PRN Administration MILD PAIN Aripiprazole 5 mg 04/16/20 09:00 04/17/20 18:22 Abilify PO Not Given BID SWATI Atorvastatin Calci um 20 mg 04/16/20 09:00 04/17/20 08:55 Lipitor PO 20 mg DAILY SWATI Administration Collagenase 1 applic 04/18/20 09:00 Santyl TOPICAL DAILY SWATI Dextrose 25 ml 04/15/20 19:10 D50w IVP ONCE PRN hypoglycemia prot ocol Protocol Dextrose 50 ml 04/15/20 19:10 D50w IVP PRN PRN hypoglycemia prot ocol Protocol Fluticasone Propio jovan 2 spray 04/16/20 09:00 04/17/20 08:55 Flonase INTRANASAL Not Given DAILY SWATI Glucagon 1 mg 04/15/20 19:10 Glucagen IM ONCE PRN Adult Acute Hypog lycemia Prot. Protocol Heparin Sodium (Be ef Lung) 5,000 unit 04/15/20 20:30 04/18/20 04:37 Heparin SUBCUT 5,000 unit Q8H SWATI Administration Dextrose 500 mls @ 100 mls /hr 04/15/20 19:10 D5w IV ONCE PRN Adult Acute Hypog lycemia Prot Protocol Ceftriaxone Sodium 1,000 mg/ 50 mls @ 100 mls/ hr 04/15/20 21:00 04/17/20 00:26 Sodium Chloride IV Infused Q24H SWATI Infusion Protocol Propofol 1,000 mg in 100 m ls @ 0 mls/hr 04/16/20 15:15 04/17/20 08:45 Diprivan IV 0 mcg/kg/min .Q0M SWATI 0 mls/hr Titration Protocol Per Protocol Norepinephrine Bit artrate 4 mg 254 mls @ 0 mls/h r 04/16/20 17:15 04/18/20 06:00 / Dextrose IV 6 mcg/min .Q0M SWATI 22.9 mls/hr Titration Protocol Per Protocol Piperacillin Sod/T azobactam 50 mls @ 12.5 mls /hr 04/16/20 20:30 04/18/20 01:16 Sod 3.375 gm/ So dium Chloride IV Infused Q12H SWATI Infusion Protocol As Directed Fentanyl 1,000 mcg / Sodium 100 mls @ 0 mls/h r 04/16/20 20:45 04/17/20 07:00 Chloride IV 0 mcg/hr .Q0M SWATI 0 mls/hr Titration Protocol Per Protocol Insulin Aspart 0 unit 04/15/20 21:00 04/17/20 21:25 Novolog SUBCUT Not Given WM&BEDTIME SWATI Protocol Levothyroxine Sodi um 125 mcg 04/16/20 09:00 04/17/20 08:55 Synthroid PO 125 mcg DAILY SWATI Administration Lorazepam 1 mg 04/15/20 19:10 04/17/20 23:07 Ativan IVP 1 mg Q6H PRN Administration ANXIETY Metoprolol Tartrat e 50 mg 04/16/20 09:00 04/17/20 18:22 Lopressor PO Not Given BID SWATI Multivitamins Ther apeutic 1 tab 04/16/20 09:00 04/17/20 08:55 Multivitamin Tab PO 1 tab DAILY SWATI Administration Nystatin 1 applic 04/16/20 09:00 04/17/20 18:22 Nystatin Powder TOPICAL Not Given BID SWATI Ondansetron HCl 4 mg 04/15/20 19:10 Zofran IVP Q6H PRN NAUSEA AND VOMITI NG Trazodone HCl 200 mg 04/15/20 21:00 04/17/20 21:26 Desyrel PO Not Given BEDTIME SWATI clarithromycin Allergy (Unknown, Verified 04/16/20 14:33) Unknown hydrocodone Allergy (Unknown, Verified 04/16/20 14:33) Unknown metformin Allergy (Unknown, Verified 04/16/20 14:33) Unknown sitagliptin [From Januvia] Allergy (Unknown, Verified 04/16/20 14:33) Unknown tetanus and diphtheria toxoids Allergy (Unknown, Verified 04/16/20 14:33) Unknown triamcinolone Allergy (Unknown, Verified 04/16/20 14:33) Unknown Vitals/I&O/Wt Last Vital Signs Temp 97.8 F 04/18/20 08:00 Pulse 87 04/18/20 08:30 Resp 19 H 04/18/20 08:30 BP 128/60 04/18/20 08:30 Pulse Ox 98 04/18/20 08:30 04/17/20 04/18/20 04/18/20 22:59 06:59 14:59 Intake Total 22.8 / 461.483 318.894 / 780.377 Output Total 250 / 950 800 / 1750 250 / 250 Balance -227.2 / -488.517 -481.106 / -969.623 -250 / -250 Weight last 48 hrs Weight 92.533 kg Physical Exam Const: COMMON NORMALS: alert GENERAL APPEARANCE: not comfortable (Due to pain during dressing change) NUTRITIONAL APPEARANCE: obese morbidly obese ORIENTATION/CONSCIOUSNESS: Yes awake HENMT: COMMON NORMALS: normocephalic, atraumatic and hearing grossly normal bilaterally HEAD & SCALP: normocephalic and atraumatic MOUTH: moist mucous membranes abnormal Details: parched Eye: COMMON NORMALS: Equal, round and reactive pupils present, EOMs intact bilaterally and conjunctivae normal CONJUNCTIVA: Yes conjunctivae normal PUPIL: Yes Equal, round and reactive pupils present Neck/C-Spine: COMMON NORMALS: full ROM GENERAL: Yes normal visual inspection and Yes trachea midline Resp: COMMON NORMALS: No retractions and No use of accessory muscles EFFORT & INSPECTION: Yes symmetric chest movement and No tachypneic AUSCULTATION: wheezes (audible) OTHER: -on 3 L NC Cardio: COMMON NORMALS: regular rate, regular rhythm, S1 normal heart sound present, S2 normal heart sound present and No murmurs present (Cardio) RATE: regular rate and tachycardic (Intermittently) RHYTHM: regular rhythm HEART SOUNDS: S1 normal heart sound present and S2 normal heart sound present GI: COMMON NORMALS: Soft to palpation INSPECTION: Yes central obesity and Yes visible herniation (large hiatal hernia) PALPATION: Yes Soft to palpation : BLADDER/KIDNEY EXAM: Yes catheter in place Catheter type (Female): urethral Extremity: COMMON NORMALS: normal to inspection and full ROM GENERAL: Yes edema (bilateral LE edema) Neuro: COMMON NORMALS: moves all extremities, no focal motor deficits and no sensory deficits noted SENSORIUM/ORIENTATION: Yes alert Psych: OTHER: -More alert today Skin: COMMON NORMALS: no jaundice, no petechiae and no mottling OTHER: -noted bilateral LE ulcers, worse on the L, weeping edema, open ulcer on posterior L leg with superficial slough, sensitive open areas on left calf and left heel with developing DTI and areas of maceration around left heel ulcer -chronic venous stasis dermatitis -excoriation in bilateral thighs, worse on the R Urinary Catheter Management^: Patino: Cath Placed During This Visit: no Reason for Continuing Indwelling Catheter: Accurate Measurement of Urinary Output in Critically Ill Patients Data : 04/18/20 04:17 04/18/20 04:17 Micro: Microbiology 04/15/20 16:45 Urine Culture - Final Urine,Clean Catch Escherichia coli esbl 04/16/20 09:00 Blood Culture - Preliminary Blood NEGATIVE TO DATE 04/16/20 09:00 Blood Culture - Preliminary Blood NEGATIVE TO DATE 04/16/20 16:40 Gram Stain - Final Sputum - Endotracheal Tube Aspirate A&P Assessment and plan (1) Sepsis: -Present on admission as evidenced by leukocytosis, hypotension, tachycardia, tachypnea, acute renal failure and now has developed acute respiratory failure as well. -on Zosyn -Noted improvement in leukocytosis, continue to trend WBC -T-max of 101.1F on 04/17 AM, has been afebrile since, intermittently tachycardic, extubated on 04/17. Continue to monitor vital signs closely Status: Acute Qualifiers: Acute respiratory failure type: unspecified Sepsis acute organ dysfunction status: with acute organ dysfunction Sepsis type: sepsis due to unspecified organism Severe sepsis acute organ dysfunction type: acute respiratory failure Severe sepsis shock status: with septic shock Qualified Code(s): A41.9 - Sepsis, unspecified organism; R65.21 - Severe sepsis with septic shock; J96.00 - Acute respiratory failure, unspecified whether with hypoxia or hypercapnia (2) Acute respiratory failure: -Intubated during process of temporary dialysis catheter placement for airway protection due to noted acute mental status change and inability to maintain appropriate positioning -extubated on 04/17 -on Zosyn -sputum cx and, gram stain polymicrobial -blood cx: prelim negative -COVID-19 negative Status: Acute Qualifiers: Respiratory failure complication: unspecified whether with hypoxia or hypercapnia Qualified Code(s): J96.00 - Acute respiratory failure, unspecified whether with hypoxia or hypercapnia (3) Acute metabolic encephalopathy: -Has been quite confused, encephalopathic even following extubation yesterday -This is likely multifactorial as she does have underlying dementia but could also be related to acute renal impairment, sepsis secondary to UTI with noted multidrug resistant organism -Requiring one-to-one monitoring -Low threshold for re-intubation for airway protection -Renal function is improving following dialysis -Has been started on Primaxin secondary to urine culture growing ESBL E. coli -Remains NPO due to continued confusion and high risk for aspiration. If this continues she will need peripheral nutrition. Request PICC line placement Status: Acute (4) Acute hyperkalemia: -noted to have acute hyperkalemia; normalized today after dialysis session yesterday -received calcium gluconate, insulin, D50 and kayexelate -telemetry monitoring -continue to monitor; hypokalemic today so we will replace IV Status: Resolved (5) PERRY (acute kidney injury): -PERRY on CKD stage 3 -baseline Cr appears to be around 1.4 -PERRY is likely multifactorial given dehydration from poor oral intake, medication induced (on diuretics, ACEi) -Improved renal function following dialysis -hold nephrotoxins, renally dose meds -Nephrology consult by Dr. Wilkerson appreciated -Renal US unremarkable -renal lytes noted -Patino catheter placed in ED, monitor urine output; assess daily for removal -off IVF hydration due to development of fluid overload -Echo: EF=55%, mild MR -resolved anion gap metabolic acidosis; off bicarbonate drip Status: Acute (6) UTI (urinary tract infection): -UA indicative of infection -urine cx: ESBL E. coli -Switch to Primaxin -noted decreased leukocytosis, afebrile x 24 hrs -Has been quite encephalopathic part of which is due to underlying dementia but this could also be due to lack of targeted treatment as did not have adequate coverage for ESBL E. coli. -Contact isolation precautions Status: Acute Qualifiers: Hematuria presence: without hematuria Urinary tract infection type: acute cystitis Qualified Code(s): N30.00 - Acute cystitis without hematuria (7) Chronic kidney disease, stage 3: -as noted above Status: Chronic (8) Vascular dementia: -Quite encephalopathic, requiring one-to-one monitoring -fall, aspiration precautions -re-orient as needed Status: Chronic Qualifiers: Dementia behavioral disturbance: with behavioral disturbance Qualified Code(s): F01.51 - Vascular dementia with behavioral disturbance (9) Type 2 diabetes mellitus: -last A1c-6.6 -Accucheks, ISS, hypoglycemia precautions -hold oral hypoglycemic agents -DM complicated by nephropathy, peripheral vascular disease, neuropathy Status: Chronic Qualifiers: Diabetes mellitus complication status: with other specified complication Diabetes mellitus chcf insulin use: without emt intermediate use Qualified Code(s): E11.69 - Type 2 diabetes mellitus with other specified complication (10) Diabetic nephropathy: -as noted above Status: Chronic Qualifiers: Diabetes mellitus type: type 2 Qualified Code(s): E11.21 - Type 2 diabetes mellitus with diabetic nephropathy (11) Hypertension: -diuretics, ACEi on hold due to renal impairment and hypotension -hold BB due to hypotension -close monitoring of vital signs Status: Chronic Qualifiers: Hypertension type: essential hypertension Qualified Code(s): I10 - Essential (primary) hypertension (12) Hypothyroidism: -on levothyroxine -TSH elevated (9.87), may need adjustment of levothyroxine dose Status: Chronic Qualifiers: Hypothyroidism type: unspecified Qualified Code(s): E03.9 - Hypothyroidism, unspecified (13) Acute on chronic anemia: -Has acute on chronic normocytic anemia -Baseline hemoglobin appears to be 10-11 -Continue to monitor H&H -Likely multifactorial part of which is secondary to underlying chronic kidney disease Status: Acute Additional A&P Information -GERD; on PPI -Morbid obesity: BMI-36 kg/m2 though overall has quite poor nutrition status as reflected by hypoalbuminemia which is contributing to lymphedema -Peripheral vascular disease with bilateral LE ulcers; wound care as needed, elevation as tolerated. Recent CTA aorta with runoff. Has been following up with Dr. Peguero at [facility] -large hiatal hernia -Dyslipidemia; on statin -Chronic pain; on narcotics -consistent carb diet -GI ppx with PPI -DVT ppx with heparin -Dispo: came from [facility] [place] -Code status: FULL code, discussed with patient at bedside -ICU care due to acute renal failure, acute metabolic encephalopathy, sepsis secondary to complicated UTI, pressor support Attestations Medical Necessity Statement*: Patient requires hospitalization for continued treatment of complicated UTI, acute renal failure, acute metabolic encephalopathy, remains on pressor support secondary to hypotension Time Spent in Patient Care: 16 - 35 minutes (>than 50% of time spent in counselling and/or direct pt care on unit). Critical Care Time: The high probability of a clinically significant, sudden or life threatening deterioration of the patient's [cardiovascular, respiratory] system(s) required my full and direct attention, intervention and personal management. The critical care time is as shown. This time is in addition to time spent performing any reported procedures but includes the following: [x] Data and vital sign review and interpretation [x] Patient assessment, examination and intervention [x] Documentation [x] Medication orders and management Critical Care Time (min): 20 Coding Level of Care Code Acute Truck Supervisor for Chg Fwd Exam Comprehensive Diagnoses Sepsis A41.9; R65.21; J96.00 Acute respiratory failure type: unspecified Sepsis acute organ dysfunction status: with acute organ dysfunction Sepsis type: sepsis due to unspecified organism Severe sepsis acute organ dysfunction type: acute respiratory failure Severe sepsis shock status: with septic shock Acute respiratory failure J96.00 Respiratory failure complication: unspecified whether with hypoxia or hypercapnia Acute metabolic encephalopathy G93.41 Acute hyperkalemia E87.5 PERRY (acute kidney injury) N17.9 UTI (urinary tract infection) N30.00 Hematuria presence: without hematuria Urinary tract infection type: acute cystitis Chronic kidney disease, stage 3 N18.3 Vascular dementia F01.51 Dementia behavioral disturbance: with behavioral disturbance Type 2 diabetes mellitus E11.69 Diabetes mellitus complication status: with other specified complication Diabetes mellitus chcf insulin use: without emt intermediate use Diabetic nephropathy E11.21 Diabetes mellitus type: type 2 Hypertension I10 Hypertension type: essential hypertension Hypothyroidism E03.9 Hypothyroidism type: unspecified Acute on chronic anemia D64.9
--- NOTE | 2020-04-18 09:07 | PC.SOCIAL ---
IMM Update Pg 2 of IMM Updated; copy left at bedside.
[2020-04-18] MEDS: pantoprazole 40 mg SDV IVP ×2 (09:44→21:13)
--- NOTE | 2020-04-18 10:08 | PM.PN ---
Subjective Subjective: Interval history: No new issues overnight, ESBL E Coli noted in the urine. Now extubated. Still very drowsy. Remains on Levophed at 6-7. No edema. Medications: Reviewed: Yes Medication Review Details: Active Medications Generic Name Dose Route Start Last Admin Trade Name Freq PRN Reason Stop Dose Admin Acetaminophen 650 mg 04/15/20 19:10 04/17/20 04:57 Tylenol PO 650 mg Q6H PRN Administration MILD PAIN Aripiprazole 5 mg 04/16/20 09:00 04/17/20 18:22 Abilify PO Not Given BID SWATI Atorvastatin Calci um 20 mg 04/16/20 09:00 04/17/20 08:55 Lipitor PO 20 mg DAILY SWATI Administration Collagenase 1 applic 04/18/20 09:00 Santyl TOPICAL DAILY SWATI Dextrose 25 ml 04/15/20 19:10 D50w IVP ONCE PRN hypoglycemia prot ocol Protocol Dextrose 50 ml 04/15/20 19:10 D50w IVP PRN PRN hypoglycemia prot ocol Protocol Fluticasone Propio jovan 2 spray 04/16/20 09:00 04/17/20 08:55 Flonase INTRANASAL Not Given DAILY SWATI Glucagon 1 mg 04/15/20 19:10 Glucagen IM ONCE PRN Adult Acute Hypog lycemia Prot. Protocol Heparin Sodium (Be ef Lung) 5,000 unit 04/15/20 20:30 04/18/20 04:37 Heparin SUBCUT 5,000 unit Q8H SWATI Administration Dextrose 500 mls @ 100 mls /hr 04/15/20 19:10 D5w IV ONCE PRN Adult Acute Hypog lycemia Prot Protocol Ceftriaxone Sodium 1,000 mg/ 50 mls @ 100 mls/ hr 04/15/20 21:00 04/17/20 00:26 Sodium Chloride IV Infused Q24H SWATI Infusion Protocol Propofol 1,000 mg in 100 m ls @ 0 mls/hr 04/16/20 15:15 04/17/20 08:45 Diprivan IV 0 mcg/kg/min .Q0M SWATI 0 mls/hr Titration Protocol Per Protocol Norepinephrine Bit artrate 4 mg 254 mls @ 0 mls/h r 04/16/20 17:15 04/18/20 06:00 / Dextrose IV 6 mcg/min .Q0M SWATI 22.9 mls/hr Titration Protocol Per Protocol Piperacillin Sod/T azobactam 50 mls @ 12.5 mls /hr 04/16/20 20:30 04/18/20 01:16 Sod 3.375 gm/ So dium Chloride IV Infused Q12H [facility] Infusion Protocol As Directed Fentanyl 1,000 mcg / Sodium 100 mls @ 0 mls/h r 04/16/20 20:45 04/17/20 07:00 Chloride IV 0 mcg/hr .Q0M SWATI 0 mls/hr Titration Protocol Per Protocol Insulin Aspart 0 unit 04/15/20 21:00 04/17/20 21:25 Novolog SUBCUT Not Given WM&BEDTIME SWATI Protocol Levothyroxine Sodi um 125 mcg 04/16/20 09:00 04/17/20 08:55 Synthroid PO 125 mcg DAILY SWATI Administration Lorazepam 1 mg 04/15/20 19:10 04/17/20 23:07 Ativan IVP 1 mg Q6H PRN Administration ANXIETY Metoprolol Tartrat e 50 mg 04/16/20 09:00 04/17/20 18:22 Lopressor PO Not Given BID SWATI Multivitamins Ther apeutic 1 tab 04/16/20 09:00 04/17/20 08:55 Multivitamin Tab PO 1 tab DAILY SWATI Administration Nystatin 1 applic 04/16/20 09:00 04/17/20 18:22 Nystatin Powder TOPICAL Not Given BID SWATI Ondansetron HCl 4 mg 04/15/20 19:10 Zofran IVP Q6H PRN NAUSEA AND VOMITI NG Trazodone HCl 200 mg 04/15/20 21:00 04/17/20 21:26 Desyrel PO Not Given BEDTIME SWATI clarithromycin Allergy (Unknown, Verified 04/16/20 14:33) Unknown hydrocodone Allergy (Unknown, Verified 04/16/20 14:33) Unknown metformin Allergy (Unknown, Verified 04/16/20 14:33) Unknown sitagliptin [From Januvia] Allergy (Unknown, Verified 04/16/20 14:33) Unknown tetanus and diphtheria toxoids Allergy (Unknown, Verified 04/16/20 14:33) Unknown triamcinolone Allergy (Unknown, Verified 04/16/20 14:33) Unknown Vitals/I&O/Wt Last Vital Signs Temp 97.8 F 04/18/20 08:00 Pulse 95 04/18/20 08:57 Resp 19 H 04/18/20 08:30 BP 128/60 04/18/20 08:30 Pulse Ox 98 04/18/20 08:57 04/17/20 04/18/20 04/18/20 22:59 06:59 14:59 Intake Total 22.8 / 461.483 318.894 / 780.377 Output Total 250 / 950 800 / 1750 250 / 250 Balance -227.2 / -488.517 -481.106 / -969.623 -250 / -250 Weight last 48 hrs Weight 92.533 kg Physical Exam Narrative: EXAM NARRATIVE: obese, NARD, nc 02, lying down in bed heent- nc/at, eomi neck supple lung scattered wheezes heart irreg +YANDY abd soft, nt, nd, +BS ext wrapped, 1+ edema, lesions that are wrapped neuro-a,a, o x 2 Const: COMMON NORMALS: no acute distress GENERAL APPEARANCE: lethargic NUTRITIONAL APPEARANCE: obese ORIENTATION/CONSCIOUSNESS: Yes lethargic Resp: COMMON NORMALS: clear to auscultation bilaterally AUSCULTATION: clear to auscultation bilaterally Cardio: COMMON NORMALS: regular rhythm RHYTHM: regular rhythm Extremity: OTHER: bilateral edema, ulcer left heel Neuro: SENSORIUM/ORIENTATION: Yes lethargic Urinary Catheter Management^: Real: Cath Placed During This Visit: no Reason for Continuing Indwelling Catheter: Accurate Measurement of Urinary Output in Critically Ill Patients Data : 04/18/20 04:17 04/18/20 04:17 Micro: Microbiology 04/16/20 16:40 Gram Stain - Final Sputum - Endotracheal Tube Aspirate Sputum Culture - Preliminary 04/15/20 16:45 Urine Culture - Final Urine,Clean Catch Escherichia coli esbl 04/16/20 09:00 Blood Culture - Preliminary Blood NEGATIVE TO DATE 04/16/20 09:00 Blood Culture - Preliminary Blood NEGATIVE TO DATE A&P Additional A&P Information 1. PERRY - likely pre-renal/ATN in the setting of infection - creatinine coming down nicely now without the need for dialysis - on levophed, possible role for ivf but given fragility will defer additional volume for the time being - am labs - ok to dc line in the am - leave real for now - avoid the usuals 2. ESBL UTI - on Primaxin 3. HypoK being replaced Attestations Medical Necessity Statement*: eval for PERRY Coding Level of Care Code Acute Market Research Lead for Darek Ojeda
--- NOTE | 2020-04-18 11:42 | XRR_ITS ---
PROCEDURE INFORMATION: Exam: XR Chest, 1 View Exam date and time: 04/18/2020 11:45 AM Age: 69 years old Clinical indication: Device placement; Picc; Additional info: Post picc placement TECHNIQUE: Imaging protocol: XR of the chest Views: 1 view. Other technique: The patient is rotated to the right. COMPARISON: CR XR chest 1V portable [id number] 04/17/2020 5:50 AM FINDINGS: Tubes, catheters and devices: The endotracheal and enteric tubes have been removed. Interval placement of a right upper extremity PICC with the tip at the SVC. Lungs: Development of fullness in the pulmonary vasculature suggesting volume overload in the lungs. Pleural space: No pleural effusion. No pneumothorax. Heart/Mediastinum: Stable mild enlargement of the cardiac silhouette. Large hiatal hernia. Vasculature: Stable vascular calcifications in the aorta. Bones/joints: Unremarkable for age. XR/XR chest 1V portable [id number] IMPRESSION: 1. Development of fullness in the pulmonary vasculature suggesting volume overload in the lungs. 2. Large hiatal hernia. 3. Interval placement of a right upper extremity PICC with the tip at the SVC. 4. Incidental/nonacute findings are listed in the report.
[2020-04-18 11:54] LABS: Glucose Point of Care 105 mg/dL (70-110)
[2020-04-18] MEDS: LORazepam 2 mg/mL INJ 1 mL 1 MG IVP (15:08)
[2020-04-18] MEDS: potassium chloride premix 40 MEQ/100 ML PREMIX 25 MEQ IV (15:09)
[2020-04-18] MEDS: sodium chloride 0.9% 500 ML 999 ML IV (15:26)
[2020-04-18] MEDS: collagenase oint 30 gm 1 APPLIC TOPICAL (15:28)
[2020-04-18] MEDS: nystatin powder 15 gm Btl 1 APPLIC TOPICAL (15:30)
[2020-04-18 17:59] LABS: Glucose Point of Care 109 mg/dL (70-110)
--- NOTE | 2020-04-18 19:01 | PC.NURSE ---
DRESSING CHANGES DONE TO [facility], DR CANNON AT BEDSIDE TO VIEW WOUNDS. CLEANSED WITH SOAP/WATER, DRIED. SANTYL APPLIED TO NECROTIC AREAS, PETROLEUM INFUSED GAUZE, ABD'S & COBAN TO BLE. YELLS OUT THE ENTIRE TIME BATH & DRESSING CHANGE DONE. WANTS TO EAT BUT REFUSES TO WORK WITH SPEECH TO HAVE EVAL DONE. REFUSES 1800 PO MEDS.
[2020-04-18 20:46] LABS: Glucose Point of Care 106 mg/dL (70-110)
[2020-04-18] MEDS: trazodone 100 mg Tablet 200 MG PO (21:13)
[2020-04-19] VITALS (14 sets, daily range): BP systolic 98–126; BP diastolic 43–83; PULSE 77–120; RESP 14–30; TEMP 36.7–37.1; O2SAT 95–100
[2020-04-19 05:03] LABS: Basophils % 0.1 %; Eosinophils # 0.5 10^3/uL (0.0-0.8); Eosinophils % 4.8 %; Hemoglobin 8.6 g/dL (11.5-15.3); Lymphocytes # 2.3 10^3/uL (0.8-4.8); Lymphocytes % 22.7 %; Mean Corpuscular HGB Conc 29.7 g/dL (30.0-36.0); Mean Corpuscular Hemoglobin 27.8 pg (28.0-34.0); Mean Corpuscular Volume 93.9 fL (81-99); Monocytes # 1.1 10^3/uL (0.2-0.9); Monocytes % 10.7 %; Neutrophils # 6.26 10^3/uL (1.8-7.7); Neutrophils % 61.2 %; Nucleated Red Blood Cells % 0 %; Platelet Count 267 10^3/cmm (130-400); Red Blood Count 3.09 10^6/uL (4.1-5.3); Red Cell Distribution Width 16.2 % (12.1-15.1); White Blood Count 10.2 10^3/uL (4.0-10.0)
[2020-04-19 05:58] LABS: Alanine Aminotransferase 12 U/L (0-33); Alkaline Phosphatase 122 IU/L (35-105); Anion Gap 13.4 (5-19); Aspartate Amino Transferase 30 U/L (0-32); Blood Urea Nitrogen 26 mg/dL (8-23); Calcium 8.3 mg/dL (8.5-10.5); Carbon Dioxide 25 mmol/L (22-29); Chloride 106 mmol/L (98-107); Globulin 3.3 g/dL (1.3-4.6); Glucose 84 mg/dL (65-115); Osmolality Calculated 288 mOsm/kg (285-295); Potassium 3.4 mmol/L (3.5-5.1); Sodium 141 mmol/L (136-145); Total Bilirubin 0.2 mg/dL (0.15-1.2); Total Protein 5.3 g/dL (6.6-8.7)
--- NOTE | 2020-04-19 07:22 | PM.PN ---
Subjective Subjective: Interval history: Patient overall looks clinically better today No acute events overnight, continues to show improvement of her kidney functions Vitals/I&O/Wt Last Vital Signs Temp 98.0 F 04/19/20 04:00 Pulse 115 H 04/19/20 06:00 Resp 22 H 04/19/20 06:00 BP 107/53 04/19/20 06:00 Pulse Ox 98 04/19/20 06:00 04/18/20 04/19/20 04/19/20 22:59 06:59 14:59 Intake Total 950 / 1200.223 350 / 1550.223 Output Total 400 / 650 700 / 1350 Balance 550 / 550.223 -350 / 200.223 Weight last 48 hrs Weight 204 lb Physical Exam Narrative: EXAM NARRATIVE: Patient is conscious alert oriented X3 Head and neck examination PERRLA no masses no cervical lymphadenopathy no jaundice Right sided neck IJ hemodialysis catheter in place.complication Bilateral lower extremities show remarkable improvement in edema, excoriated ulcers of the left lower extremity looks much better in comparison when I used to see the patient at the wound care center likely due to the decreased swelling, application of Santyl bedside done by me followed by ABDs and Kerlix. Small ulceration on the right lower extremity was dressed in the same pattern and A&E ointment on the dry skin. Urinary Catheter Management^: Patino: Cath Placed During This Visit: no Reason for Continuing Indwelling Catheter: Accurate Measurement of Urinary Output in Critically Ill Patients Data : 04/19/20 04:21 04/19/20 04:21 Micro: Microbiology 04/16/20 16:40 Gram Stain - Final Sputum - Endotracheal Tube Aspirate Sputum Culture - Preliminary 04/15/20 16:45 Urine Culture - Final Urine,Clean Catch Escherichia coli esbl A&P Assessment and plan (1) PERRY (acute kidney injury): Plan of care; Plan to discontinue hemodialysis catheter per nephrology recommendations this patient's overall clinical condition improving as well as her kidney functions and electrolytes. Please call for questions or concerns Thank you for consulting general surgery to participate taking care Younger Status: Acute (2) Bilateral leg ulcer: Rinsing bilateral lower extremity ulcers with normal saline more pink followed by application of Santyl then ABDs and Kerlix. Apply A&E ointment daily on the dry skin of the right lower extremity Continue offloading pressure points particularly bilateral ankle and heel regions Please call for questions or concerns Status: Acute Attestations Medical Necessity Statement*: Medical necessity care is expected to cross 2 midnights Time Spent in Patient Care: 16 - 35 minutes (>than 50% of time spent in counselling and/or direct pt care on unit). Procedures Procedure Narrative Discontinue right IJ hemodialysis catheter Preprocedure diagnosis: Undesired hemodialysis catheter Iimprovement of kidney functions and patient does not need further dialysis Postprocedure diagnosis the same Procedure bedside removal of right internal jugular vein temporary non-tunneled hemodialysis catheter Description: Patient was placed in supine position and catheter sutures were removed and application of pressure for 10 minutes at least to prevent bleeding by me,followed by application of medium sized Tegaderm. Patient tolerated the procedure well without complication Estimated blood loss minimal No complications I was present for the whole entire procedure Coding Level of Care Code Acute Infection Control Practitioner for g Fwd Diagnoses PERRY (acute kidney injury) N17.9 Bilateral leg ulcer L97.919; L97.926
[2020-04-19] MEDS: acetaminophen 325 mg Tablet 650 MG PO ×2 (07:47→20:36)
--- NOTE | 2020-04-19 08:10 | PM.PN ---
Subjective Subjective: Interval history: Had 700 mL urine output overnight, weaned off Levophed, noted drop in hemoglobin today from 9.2->8.6, continued decrease in leukocytosis, afebrile, continued improvement in renal function. Mild hypokalemia, will replace. She is requesting a cheeseburger, sitter at bedside. Seem to do much better last night in terms of decreased restlessness. Temporary dialysis catheter removed this morning by Dr. Mathews. He also examined lower extremity wounds and cleaned and dressed them this morning at bedside. Medications: Reviewed: Yes Medication Review Details: Active Medications Generic Name Dose Route Start Last Admin Trade Name Freq PRN Reason Stop Dose Admin Acetaminophen 650 mg 04/15/20 19:10 04/19/20 07:47 Tylenol PO 650 mg Q6H PRN Administration MILD PAIN Aripiprazole 5 mg 04/16/20 09:00 04/18/20 18:13 Abilify PO Not Given BID SWATI Atorvastatin Calci um 20 mg 04/16/20 09:00 04/18/20 15:28 Lipitor PO Not Given DAILY SWATI Collagenase 1 applic 04/18/20 09:00 04/18/20 15:28 Santyl TOPICAL 1 applic DAILY SWATI Administration Dextrose 25 ml 04/15/20 19:10 D50w IVP ONCE PRN hypoglycemia prot ocol Protocol Dextrose 50 ml 04/15/20 19:10 D50w IVP PRN PRN hypoglycemia prot ocol Protocol Fluticasone Propio jovan 2 spray 04/16/20 09:00 04/18/20 15:27 Flonase INTRANASAL Not Given DAILY SWATI Glucagon 1 mg 04/15/20 19:10 Glucagen IM ONCE PRN Adult Acute Hypog lycemia Prot. Protocol Heparin Sodium (Be ef Lung) 5,000 unit 04/15/20 20:30 04/18/20 04:37 Heparin SUBCUT 5,000 unit Q8H SWATI Administration Dextrose 500 mls @ 100 mls /hr 04/15/20 19:10 D5w IV ONCE PRN Adult Acute Hypog lycemia Prot Protocol Norepinephrine Bit artrate 4 mg 254 mls @ 0 mls/h r 04/16/20 17:15 04/18/20 18:25 / Dextrose IV 1 mcg/min .Q0M SWATI 3.8 mls/hr Administration Protocol Per Protocol Imipenem/Cilastati n Sodium 250 100 mls @ 200 mls /hr 04/18/20 09:30 04/19/20 03:51 mg/ Sodium Chlor migdalia IV Infused Q6H SWATI Infusion Protocol Sodium Chloride 500 mls @ 0 mls/h r 04/18/20 13:30 04/18/20 16:00 Sodium Chloride 0.9% IV Infused .Q0M SWATI Infusion Per Protocol Insulin Aspart 0 unit 04/15/20 21:00 04/18/20 21:10 Novolog SUBCUT Not Given WM&BEDTIME SWATI Protocol Levothyroxine Sodi um 125 mcg 04/16/20 09:00 04/18/20 15:27 Synthroid PO Not Given DAILY SWATI Lorazepam 1 mg 04/15/20 19:10 04/18/20 15:08 Ativan IVP 1 mg Q6H PRN Administration ANXIETY Metoprolol Tartrat e 50 mg 04/16/20 09:00 04/18/20 18:13 Lopressor PO Not Given BID SWATI Metoprolol Tartrat e 5 mg 04/18/20 20:03 Metoprolol Tartr ate IV Q4H PRN HEART RATE-HIGH Multivitamins Ther apeutic 1 tab 04/16/20 09:00 04/18/20 15:27 Multivitamin Tab PO Not Given DAILY SWATI Nystatin 1 applic 04/16/20 09:00 04/18/20 18:13 Nystatin Powder TOPICAL Not Given BID SWATI Ondansetron HCl 4 mg 04/15/20 19:10 Zofran IVP Q6H PRN NAUSEA AND VOMITI NG Pantoprazole Sodiu m 40 mg 04/18/20 09:30 04/18/20 21:13 Protonix IVP 40 mg Q12H SWATI Administration Trazodone HCl 200 mg 04/15/20 21:00 04/18/20 21:13 Desyrel PO 200 mg BEDTIME SWATI Administration clarithromycin Allergy (Unknown, Verified 04/16/20 14:33) Unknown hydrocodone Allergy (Unknown, Verified 04/16/20 14:33) Unknown metformin Allergy (Unknown, Verified 04/16/20 14:33) Unknown sitagliptin [From Januvia] Allergy (Unknown, Verified 04/16/20 14:33) Unknown tetanus and diphtheria toxoids Allergy (Unknown, Verified 07/23/20 14:33) Unknown triamcinolone Allergy (Unknown, Verified 04/16/20 14:33) Unknown Vitals/I&O/Wt Last Vital Signs Temp 98.0 F 04/19/20 04:00 Pulse 115 H 04/19/20 06:00 Resp 22 H 04/19/20 06:00 BP 107/53 04/19/20 06:00 Pulse Ox 98 04/19/20 06:00 04/18/20 04/19/20 04/19/20 22:59 06:59 14:59 Intake Total 950 / 1200.223 350 / 1550.223 Output Total 400 / 650 700 / 1350 Balance 550 / 550.223 -350 / 200.223 Weight last 48 hrs Weight 92.533 kg Physical Exam Const: COMMON NORMALS: no acute distress and alert GENERAL APPEARANCE: comfortable NUTRITIONAL APPEARANCE: obese morbidly obese ORIENTATION/CONSCIOUSNESS: Yes awake OTHER: -intermittently restless HENMT: COMMON NORMALS: normocephalic, atraumatic, hearing grossly normal bilaterally and moist oral mucous membranes HEAD & SCALP: normocephalic and atraumatic Eye: COMMON NORMALS: Equal, round and reactive pupils present, EOMs intact bilaterally and conjunctivae normal CONJUNCTIVA: Yes conjunctivae normal PUPIL: Yes Equal, round and reactive pupils present Neck/C-Spine: COMMON NORMALS: full ROM GENERAL: Yes normal visual inspection and Yes trachea midline Resp: COMMON NORMALS: No retractions and No use of accessory muscles EFFORT & INSPECTION: Yes symmetric chest movement and No tachypneic AUSCULTATION: wheezes (audible) OTHER: -on 2 L NC Cardio: COMMON NORMALS: regular rate, regular rhythm, S1 normal heart sound present, S2 normal heart sound present and No murmurs present (Cardio) RATE: regular rate and tachycardic (Intermittently) RHYTHM: regular rhythm HEART SOUNDS: S1 normal heart sound present and S2 normal heart sound present GI: COMMON NORMALS: Soft to palpation INSPECTION: Yes central obesity and Yes visible herniation (large hiatal hernia) PALPATION: Yes Soft to palpation : BLADDER/KIDNEY EXAM: Yes catheter in place Catheter type (Female): urethral Extremity: COMMON NORMALS: normal to inspection and full ROM GENERAL: Yes edema (bilateral LE edema) Neuro: COMMON NORMALS: moves all extremities, no focal motor deficits and no sensory deficits noted SENSORIUM/ORIENTATION: Yes alert Psych: COMMON NORMALS: mental status grossly normal, Normal thought process present, cooperative, normal affect and speech normal SPEECH: Yes normal speech THOUGHT PROCESS: Normal thought process present OTHER: -level of alertness improving Skin: COMMON NORMALS: no jaundice, no petechiae and no mottling OTHER: -noted bilateral LE ulcers, worse on the L, weeping edema, open ulcer on posterior L leg with superficial slough, sensitive open areas on left calf and left heel with developing DTI and areas of maceration around left heel ulcer -chronic venous stasis dermatitis -excoriation in bilateral thighs, worse on the R Urinary Catheter Management^: Patino: Cath Placed During This Visit: no Reason for Continuing Indwelling Catheter: Accurate Measurement of Urinary Output in Critically Ill Patients Data : 04/19/20 04:21 04/19/20 04:21 Micro: Microbiology 04/16/20 16:40 Gram Stain - Final Sputum - Endotracheal Tube Aspirate Sputum Culture - Preliminary 04/15/20 16:45 Urine Culture - Final Urine,Clean Catch Escherichia coli esbl A&P Assessment and plan (1) PERRY (acute kidney injury): -PERRY on CKD stage 3 -baseline Cr appears to be around 1.4 -PERRY is likely multifactorial given dehydration from poor oral intake, medication induced (on diuretics, ACEi) -Improved renal function following dialysis -hold nephrotoxins, renally dose meds -Nephrology consult appreciated -Renal US unremarkable -renal lytes noted -Patino catheter placed in ED, monitor urine output; assess daily for removal -off IVF hydration due to development of fluid overload -Echo: EF=55%, mild MR -resolved anion gap metabolic acidosis; off bicarbonate drip Status: Acute (2) UTI (urinary tract infection): -UA indicative of infection -urine cx: ESBL E. coli -on Primaxin (day 2) -noted decreased leukocytosis, afebrile x > 48 hrs -Has been quite encephalopathic part of which is due to underlying dementia but this could also be due to lack of targeted treatment as did not have adequate coverage for ESBL E. coli. Level of alertness is improving -Contact isolation precautions Status: Acute Qualifiers: Hematuria presence: without hematuria Urinary tract infection type: acute cystitis Qualified Code(s): N30.00 - Acute cystitis without hematuria (3) Sepsis: -Present on admission as evidenced by leukocytosis, hypotension, tachycardia, tachypnea, acute renal failure and now has developed acute respiratory failure as well. -on Primaxin -Noted improvement in leukocytosis, continue to trend WBC -T-max of 101.1F on 04/17 AM, has been afebrile since, intermittently tachycardic, extubated on 04/17. Continue to monitor vital signs closely. Weaned off Levophed overnight. Status: Resolved Qualifiers: Acute respiratory failure type: unspecified Sepsis acute organ dysfunction status: with acute organ dysfunction Sepsis type: sepsis due to unspecified organism Severe sepsis acute organ dysfunction type: acute respiratory failure Severe sepsis shock status: with septic shock Qualified Code(s): A41.9 - Sepsis, unspecified organism; R65.21 - Severe sepsis with septic shock; J96.00 - Acute respiratory failure, unspecified whether with hypoxia or hypercapnia (4) Acute respiratory failure: -Intubated during process of temporary dialysis catheter placement for airway protection due to noted acute mental status change and inability to maintain appropriate positioning -extubated on 04/17 -on Primaxin -sputum cx-few MRSA, gram stain polymicrobial -blood cx: prelim negative -COVID-19 negative Status: Resolved Qualifiers: Respiratory failure complication: unspecified whether with hypoxia or hypercapnia Qualified Code(s): J96.00 - Acute respiratory failure, unspecified whether with hypoxia or hypercapnia (5) Acute metabolic encephalopathy: -Has been quite confused, encephalopathic even following extubation yesterday -This is likely multifactorial as she does have underlying dementia but could also be related to acute renal impairment, sepsis secondary to UTI with noted multidrug resistant organism -Requiring one-to-one monitoring -Low threshold for re-intubation for airway protection -Renal function is improving following dialysis -on Primaxin secondary to urine culture growing ESBL E. coli -Remains NPO due to continued confusion and high risk for aspiration. If this continues she will need peripheral nutrition. PICC line placement requested Status: Acute (6) Acute hyperkalemia: -noted to have acute hyperkalemia; normalized today after dialysis session x 1 -received calcium gluconate, insulin, D50 and kayexelate -telemetry monitoring -continue to monitor; hypokalemic so will replace IV as needed pending improved oral tolerance Status: Resolved (7) Chronic kidney disease, stage 3: -as noted above Status: Chronic (8) Vascular dementia: -Quite encephalopathic, requiring one-to-one monitoring -fall, aspiration precautions -re-orient as needed Status: Chronic Qualifiers: Dementia behavioral disturbance: with behavioral disturbance Qualified Code(s): F01.51 - Vascular dementia with behavioral disturbance (9) Type 2 diabetes mellitus: -last A1c-6.6 -Accucheks, ISS, hypoglycemia precautions -hold oral hypoglycemic agents -DM complicated by nephropathy, peripheral vascular disease, neuropathy Status: Chronic Qualifiers: Diabetes mellitus complication status: with other specified complication Diabetes mellitus 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 helper termite insulin use: without 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 helper termite use Qualified Code(s): E11.69 - Type 2 diabetes mellitus with other specified complication (10) Diabetic nephropathy: -as noted above Status: Chronic Qualifiers: Diabetes mellitus type: type 2 Qualified Code(s): E11.21 - Type 2 diabetes mellitus with diabetic nephropathy (11) Hypertension: -diuretics, ACEi on hold due to renal impairment -resume BB if able to take PO meds and BP tolerates -close monitoring of vital signs; BP improving and able to wean off pressor support overnight Status: Chronic Qualifiers: Hypertension type: essential hypertension Qualified Code(s): I10 - Essential (primary) hypertension (12) Hypothyroidism: -on levothyroxine -TSH elevated (9.87), may need adjustment of levothyroxine dose Status: Chronic Qualifiers: Hypothyroidism type: unspecified Qualified Code(s): E03.9 - Hypothyroidism, unspecified (13) Acute on chronic anemia: -Has acute on chronic normocytic anemia -Baseline hemoglobin appears to be 10-11 -Continue to monitor H&H -Likely multifactorial part of which is secondary to underlying chronic kidney disease Status: Acute Additional A&P Information -GERD; on PPI -Morbid obesity: BMI-36 kg/m2 though overall has quite poor nutrition status as reflected by hypoalbuminemia which is contributing to lymphedema -Peripheral vascular disease with bilateral LE ulcers; wound care as needed, elevation as tolerated. Recent CTA aorta with runoff. Has been following up with Dr. Peguero at [facility] -large hiatal hernia -Dyslipidemia; on statin -Chronic pain; on narcotics -consistent carb diet -GI ppx with PPI -DVT ppx with heparin -[place]: [place] [facility] [place]Code status: FULL code, discussed with patient at bedside -ICU care due to acute renal failure, acute metabolic encephalopathy, sepsis secondary to complicated UTI Attestations Medical Necessity Statement*: Patient requires hospitalization for continued management of acute renal impairment, complicated UTI, continued hemodynamic status monitoring. Time Spent in Patient Care: 16 - 35 minutes (>than 50% of time spent in counselling and/or direct pt care on unit). Coding Level of Care Code Acute Diamond Wheel Edger for g Fwd Exam Comprehensive Diagnoses PERRY (acute kidney injury) N17.9 UTI (urinary tract infection) N30.00 Hematuria presence: without hematuria Urinary tract infection type: acute cystitis Sepsis A41.9; R65.21; J96.00 Acute respiratory failure type: unspecified Sepsis acute organ dysfunction status: with acute organ dysfunction Sepsis type: sepsis due to unspecified organism Severe sepsis acute organ dysfunction type: acute respiratory failure Severe sepsis shock status: with septic shock Acute respiratory failure J96.00 Respiratory failure complication: unspecified whether with hypoxia or hypercapnia Acute metabolic encephalopathy G93.41 Acute hyperkalemia E87.5 Chronic kidney disease, stage 3 N18.3 Vascular dementia F01.51 Dementia behavioral disturbance: with behavioral disturbance Type 2 diabetes mellitus E11.69 Diabetes mellitus complication status: with other specified complication Diabetes mellitus 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 helper termite insulin use: without 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 helper termite use Diabetic nephropathy E11.21 Diabetes mellitus type: type 2 Hypertension I10 Hypertension type: essential hypertension Hypothyroidism E03.9 Hypothyroidism type: unspecified Acute on chronic anemia D64.9
--- NOTE | 2020-04-19 10:45 | P.PN_ITS ---
Subjective Subjective: Interval history: More lucid overnight and less restless. Asking for cheeseburger and fried chicken. UO 700mL overnight. Pain in the legs. Breathing comfortably on 2L. CXR notable for pulm vasc congestion. Levo weaning off. Temp dialysis cath removed. Minimal global anasarca and no overt uremic Sx. Medications: Reviewed: Yes Medication Review Details: Active Medications Generic Name Dose Route Start Last Admin Trade Name Freq PRN Reason Stop Dose Admin Acetaminophen 650 mg 04/15/20 19:10 04/19/20 07:47 Tylenol PO 650 mg Q6H PRN Administration MILD PAIN Aripiprazole 5 mg 04/16/20 09:00 04/18/20 18:13 Abilify PO Not Given BID SWATI Atorvastatin Calci um 20 mg 04/16/20 09:00 04/18/20 15:28 Lipitor PO Not Given DAILY SWATI Collagenase 1 applic 04/18/20 09:00 04/18/20 15:28 Santyl TOPICAL 1 applic DAILY SWATI Administration Dextrose 25 ml 04/15/20 19:10 D50w IVP ONCE PRN hypoglycemia prot ocol Protocol Dextrose 50 ml 04/15/20 19:10 D50w IVP PRN PRN hypoglycemia prot ocol Protocol Fluticasone Propio jovan 2 spray 04/16/20 09:00 04/18/20 15:27 Flonase INTRANASAL Not Given DAILY SWATI Glucagon 1 mg 04/15/20 19:10 Glucagen IM ONCE PRN Adult Acute Hypog lycemia Prot. Protocol Heparin Sodium (Be ef Lung) 5,000 unit 04/15/20 20:30 04/18/20 04:37 Heparin SUBCUT 5,000 unit Q8H SWATI Administration Dextrose 500 mls @ 100 mls /hr 04/15/20 19:10 D5w IV ONCE PRN Adult Acute Hypog lycemia Prot Protocol Norepinephrine Bit artrate 4 mg 254 mls @ 0 mls/h r 04/16/20 17:15 04/18/20 18:25 / Dextrose IV 1 mcg/min .Q0M SWATI 3.8 mls/hr Administration Protocol Per Protocol Imipenem/Cilastati n Sodium 250 100 mls @ 200 mls /hr 04/18/20 09:30 04/19/20 03:51 mg/ Sodium Chlor migdalia IV Infused Q6H SWATI Infusion Protocol Sodium Chloride 500 mls @ 0 mls/h r 04/18/20 13:30 04/18/20 16:00 Sodium Chloride 0.9% IV Infused .Q0M SAWTI Infusion Per Protocol Insulin Aspart 0 unit 04/15/20 21:00 04/18/20 21:10 Novolog SUBCUT Not Given WM&BEDTIME SWATI Protocol Levothyroxine Sodi um 125 mcg 04/16/20 09:00 04/18/20 15:27 Synthroid PO Not Given DAILY SWATI Lorazepam 1 mg 04/15/20 19:10 04/18/20 15:08 Ativan IVP 1 mg Q6H PRN Administration ANXIETY Metoprolol Tartrat e 50 mg 04/16/20 09:00 04/18/20 18:13 Lopressor PO Not Given BID SWATI Metoprolol Tartrat e 5 mg 04/18/20 20:03 Metoprolol Tartr ate IV Q4H PRN HEART RATE-HIGH Multivitamins Ther apeutic 1 tab 04/16/20 09:00 04/18/20 15:27 Multivitamin Tab PO Not Given DAILY SWATI Nystatin 1 applic 04/16/20 09:00 04/18/20 18:13 Nystatin Powder TOPICAL Not Given BID SWATI Ondansetron HCl 4 mg 04/15/20 19:10 Zofran IVP Q6H PRN NAUSEA AND VOMITI NG Pantoprazole Sodiu m 40 mg 04/18/20 09:30 04/18/20 21:13 Protonix IVP 40 mg Q12H SWATI Administration Trazodone HCl 200 mg 04/15/20 21:00 04/18/20 21:13 Desyrel PO 200 mg BEDTIME SWATI Administration clarithromycin Allergy (Unknown, Verified 04/16/20 14:33) Unknown hydrocodone Allergy (Unknown, Verified 04/16/20 14:33) Unknown metformin Allergy (Unknown, Verified 04/16/20 14:33) Unknown sitagliptin [From Januvia] Allergy (Unknown, Verified 04/16/20 14:33) Unknown tetanus and diphtheria toxoids Allergy (Unknown, Verified 04/16/20 14:33) Unknown triamcinolone Allergy (Unknown, Verified 04/16/20 14:33) Unknown Vitals/I&O/Wt Last Vital Signs Temp 98.0 F 04/19/20 04:00 Pulse 115 H 07/26/20 06:00 Resp 22 H 04/19/20 06:00 BP 107/53 04/19/20 06:00 Pulse Ox 98 04/19/20 06:00 04/18/20 04/19/20 04/19/20 22:59 06:59 14:59 Intake Total 950 / 1200.223 350 / 1550.223 Output Total 400 / 650 700 / 1350 Balance 550 / 550.223 -350 / 200.223 Physical Exam Narrative: EXAM NARRATIVE: obese, NARD, nc 02, lying down in bed heent- nc/at, eomi neck supple lung scattered wheezes heart irreg +YANDY abd soft, nt, nd, +BS ext wrapped, 1+ edema, lesions that are wrapped neuro-a,a, o x 2 Const: COMMON NORMALS: no acute distress GENERAL APPEARANCE: lethargic NUTRITIONAL APPEARANCE: obese ORIENTATION/CONSCIOUSNESS: Yes lethargic Resp: COMMON NORMALS: clear to auscultation bilaterally AUSCULTATION: clear to auscultation bilaterally Cardio: COMMON NORMALS: regular rhythm RHYTHM: regular rhythm Extremity: OTHER: bilateral edema, ulcer left heel Neuro: SENSORIUM/ORIENTATION: Yes lethargic Urinary Catheter Management^: Patino: Cath Placed During This Visit: no Reason for Continuing Indwelling Catheter: Accurate Measurement of Urinary Output in Critically Ill Patients Data : 04/19/20 04:21 04/19/20 04:21 Micro: Microbiology 04/16/20 16:40 Gram Stain - Final Sputum - Endotracheal Tube Aspirate Sputum Culture - Final Methicillin Resis Staph Aureus 04/15/20 16:45 Urine Culture - Final Urine,Clean Catch Escherichia coli esbl A&P Additional A&P Information 1. PERRY - likely pre-renal/ATN in the setting of infection - creatinine coming down nicely now without the need for dialysis - deferring ivf and pressors weaned off - am labs - ok to remove Patino - dialysis line is removed - avoid the usuals 2. ESBL UTI - on Primaxin 3. HypoK being replaced - renal issues resolving; will sign off the case at thius time. Thank you for our involvement in her care, please do not hesitate to contact our team if we can be of further assisstance Attestations Medical Necessity Statement*: Eval for PERRY Coding Level of Care Code Acute Opinion Polls Survey Worker for Darek Ojeda
[2020-04-19] MEDS: lidocaine 1% INJ 20 mL 5 ML IV (11:03)
[2020-04-19] MEDS: potassium chloride premix 40 MEQ/100 ML PREMIX 25 MEQ IV (11:08)
[2020-04-19] MEDS: ARIPiprazole 10 mg Tablet 5 MG PO ×2 (11:11→18:09)
[2020-04-19] MEDS: atorvastatin 40 mg Tablet 20 MG PO (11:11)
[2020-04-19] MEDS: multivitamin therapeutic Tablet 1 TAB PO (11:11)
[2020-04-19] MEDS: metoprolol tartrate 50 mg Tablet PO ×2 (11:11→18:09)
[2020-04-19] MEDS: levothyroxine 125 mcg Tablet PO (11:11)
[2020-04-19] MEDS: fluticasone nasal spray 16gm Btl 2 SPRAY INTRANASAL (11:12)
[2020-04-19] MEDS: pantoprazole 40 mg SDV IVP ×2 (11:12→20:36)
[2020-04-19] MEDS: nystatin powder 15 gm Btl 1 APPLIC TOPICAL ×2 (11:13→18:09)
[2020-04-19] MEDS: collagenase oint 30 gm 1 APPLIC TOPICAL (11:13)
[2020-04-19 12:13] LABS: ABG PCO2 43.6 mmHg (35-45); ABG PH Result 7.36 (7.35-7.45); Alveolar-Arterial Oxygen Gradi 263.9 mmHg (5-10); Arterial Blood Gas Hematocrit 32.2 % (37-47); Base Excess ABG -0.7 mmol/L (-2.0-2.0); Blood Gas Sample Site Brachial, left; Blood Gas Sample Type Arterial; Blood Gas Tidal Volume 0.4; Carboxyhemoglobin 0.1 %THgb (0.4-20.1); HCO3 ABG 24.8 mmol/L (22-26); HGB O2 Sat 98.5 % (95-100); Ionized Calcium Level - ABG 1.2 mmol/L (1.1-1.4); Methemoglobin 1.2 % (0.4-1.5); Oxygen Device VENT; Oxygen Saturation ABG 99.8; Potassium Level - ABG 4.7 mmol/L (3.5-5.0); Total Hemoglobin 10.5 g/dL (12-16)
[2020-04-19] MEDS: LORazepam 2 mg/mL INJ 1 mL 1 MG IVP (13:59)
[2020-04-19] MEDS: trazodone 100 mg Tablet 200 MG PO (20:36)
[2020-04-19 21:02] LABS: Glucose Point of Care 81 mg/dL (70-110)
[2020-04-20] VITALS (18 sets, daily range): BP systolic 79–140; BP diastolic 48–81; PULSE 84–123; RESP 13–21; TEMP 36.8–37.2; O2SAT 96–100
[2020-04-20] MEDS: LORazepam 2 mg/mL INJ 1 mL 1 MG IVP ×3 (02:44→20:43)
[2020-04-20 05:20] LABS: Basophils % 0.2 %; Eosinophils # 0.7 10^3/uL (0.0-0.8); Eosinophils % 6.2 %; Hematocrit 30.3 % (37.0-47.0); Hemoglobin 9.1 g/dL (11.5-15.3); Lymphocytes # 2.5 10^3/uL (0.8-4.8); Lymphocytes % 21.4 %; Mean Corpuscular Hemoglobin 28.3 pg (28.0-34.0); Mean Corpuscular Volume 94.1 fL (81-99); Mean Platelet Volume 9.2 fL (7.4-10.4); Monocytes # 1.1 10^3/uL (0.2-0.9); Monocytes % 9.3 %; Neutrophils # 7.16 10^3/uL (1.8-7.7); Neutrophils % 62.4 %; Nucleated Red Blood Cells % 0 %; Platelet Count 289 10^3/cmm (130-400); Red Blood Count 3.22 10^6/uL (4.1-5.3); Red Cell Distribution Width 16.1 % (12.1-15.1); White Blood Count 11.5 10^3/uL (4.0-10.0)
[2020-04-20 05:46] LABS: Alanine Aminotransferase 12 U/L (0-33); Albumin Level 2.2 g/dL (3.5-5.2); Alkaline Phosphatase 113 IU/L (35-105); Anion Gap 12.8 (5-19); Aspartate Amino Transferase 26 U/L (0-32); Blood Urea Nitrogen 18 mg/dL (8-23); Calcium 7.7 mg/dL (8.5-10.5); Carbon Dioxide 26 mmol/L (22-29); Chloride 109 mmol/L (98-107); Globulin 2.9 g/dL (1.3-4.6); Glucose 88 mg/dL (65-115); Osmolality Calculated 294 mOsm/kg (285-295); Potassium 3.8 mmol/L (3.5-5.1); Sodium 144 mmol/L (136-145); Total Bilirubin 0.2 mg/dL (0.15-1.2); Total Protein 5.1 g/dL (6.6-8.7)
[2020-04-20 07:46] LABS: Glucose Point of Care 97 mg/dL (70-110)
[2020-04-20] MEDS: metoprolol tartrate 50 mg Tablet PO ×3 (08:19→20:03)
[2020-04-20] MEDS: atorvastatin 40 mg Tablet 20 MG PO (08:19)
[2020-04-20] MEDS: ARIPiprazole 10 mg Tablet 5 MG PO ×3 (08:19→20:03)
[2020-04-20] MEDS: levothyroxine 125 mcg Tablet PO (08:20)
[2020-04-20] MEDS: multivitamin therapeutic Tablet 1 TAB PO (08:20)
[2020-04-20] MEDS: nystatin powder 15 gm Btl 1 APPLIC TOPICAL ×2 (08:54→17:14)
[2020-04-20] MEDS: fluticasone nasal spray 16gm Btl 2 SPRAY INTRANASAL (08:55)
[2020-04-20] MEDS: collagenase oint 30 gm 1 APPLIC TOPICAL (08:56)
[2020-04-20] MEDS: pantoprazole 40 mg SDV IVP ×2 (08:59→20:30)
--- NOTE | 2020-04-20 10:22 | CT_ITS ---
WS: [id number] CT ABDOMEN PELVIS TECHNIQUE: Noncontrast CT of the abdomen and pelvis with coronal and sagittal reformatted images. CLINICAL INFORMATION: evalute for obstruction COMPARISON: None. DLP: 2198.[address] scans at [facility] use at least one of these dose optimization techniques: automat ed exposure control; mA and/or kV adjustment per patient size (includes targeted exams where dose is matched to clinical indication); or iterative reconstruction. FINDINGS: Small bilateral pleural effusions. Moderate to large esophageal hiatal hernia with partial intrathora cic stomach. Noncontrast liver is normal. Noncontrast spleen is normal. Fatty atrophy of the pancreas . Adrenal glands are normal. Bilateral renal cortical atrophy. No hydronephrosis. No obstructing renal or ureteral calculi. Patino catheter in place. Renal parenchymal enhancement cannot be evaluated witho ut contrast. Mild aortic calcification. No free fluid in the pelvis. No periaortic or inguinal lympha denopathy. No evidence of small or large bowel obstruction. Normal sigmoid colon. Grade 2 anterolisth esis L5 on S1 with chronic spondylolysis. CT/CT kidney stone [id number] IMPRESSION: 1. Bilateral renal cortical atrophy. No hydronephrosis. No obstructing renal o r ureteral calculi. 2. Moderate to large esophageal hiatal hernia. 3. No significant free fluid in the pelvis. 4. Patino catheter in place. 5. Grade 2 anterolisthesis L5 on S1 with chronic spondylolysis.
--- NOTE | 2020-04-20 10:22 | CT_ITS ---
WS: [id number] CT CHEST TECHNIQUE: Noncontrast CT of the chest with coronal and sagittal reformatted images. CLINICAL INFORMATION: evaluate for pneumonia vs CHF COMPARISON: None. DLP: 882.[address] scans at [facility] use at least one of these dose optimization techniques: automat ed exposure control; mA and/or kV adjustment per patient size (includes targeted exams where dose is matched to clinical indication); or iterative reconstruction. FINDINGS: Moderate chronic emphysematous changes. Small bilateral pleural effusions. Bibasilar atelectasis. No focal consolidation. No focal pneumonia. Cardiomegaly. Coronary calcification. Moderate to large esop hageal hiatal hernia with partial intrathoracic stomach. No mediastinal or hilar lymphadenopathy. No axillary lymphadenopathy. Moderate thoracic kyphosis. Hypertrophic changes mid thoracic spine. CT/CT chest wo con [id number] IMPRESSION: 1. Moderate chronic emphysematous changes. 2. Small bilateral pleural effusions with bibasilar atelectasis. No focal pneu monia. 3. Cardiomegaly with coronary calcification. 4. Moderate to large esophageal hiatal hernia with partial intrathoracic stoma ch.
--- NOTE | 2020-04-20 10:23 | PM.PN ---
Subjective Subjective: Interval history: Tachycardic 101-120s, SBP 79/57 this morning, tends to be hypotensive with position changes, continues to be somnolent this morning,however is asking for breakfast, screaming during dressing changes, received ativan overnight. Medications: Reviewed: Yes Medication Review Details: Active Medications Generic Name Dose Route Start Last Admin Trade Name Freq PRN Reason Stop Dose Admin Acetaminophen 650 mg 04/15/20 19:10 04/19/20 07:47 Tylenol PO 650 mg Q6H PRN Administration MILD PAIN Aripiprazole 5 mg 04/16/20 09:00 04/18/20 18:13 Abilify PO Not Given BID SWATI Atorvastatin Calci um 20 mg 04/16/20 09:00 04/18/20 15:28 Lipitor PO Not Given DAILY SWATI Collagenase 1 applic 04/18/20 09:00 04/18/20 15:28 Santyl TOPICAL 1 applic DAILY SWATI Administration Dextrose 25 ml 04/15/20 19:10 D50w IVP ONCE PRN hypoglycemia prot ocol Protocol Dextrose 50 ml 04/15/20 19:10 D50w IVP PRN PRN hypoglycemia prot ocol Protocol Fluticasone Propio jovan 2 spray 04/16/20 09:00 04/18/20 15:27 Flonase INTRANASAL Not Given DAILY SWATI Glucagon 1 mg 04/15/20 19:10 Glucagen IM ONCE PRN Adult Acute Hypog lycemia Prot. Protocol Heparin Sodium (Be ef Lung) 5,000 unit 04/15/20 20:30 04/18/20 04:37 Heparin SUBCUT 5,000 unit Q8H SWATI Administration Dextrose 500 mls @ 100 mls /hr 04/15/20 19:10 D5w IV ONCE PRN Adult Acute Hypog lycemia Prot Protocol Norepinephrine Bit artrate 4 mg 254 mls @ 0 mls/h r 04/16/20 17:15 04/18/20 18:25 / Dextrose IV 1 mcg/min .Q0M SWATI 3.8 mls/hr Administration Protocol Per Protocol Imipenem/Cilastati n Sodium 250 100 mls @ 200 mls /hr 04/18/20 09:30 04/19/20 03:51 mg/ Sodium Chlor migdalia IV Infused Q6H SWATI Infusion Protocol Sodium Chloride 500 mls @ 0 mls/h r 04/18/20 13:30 04/18/20 16:00 Sodium Chloride 0.9% IV Infused .Q0M SWATI Infusion Per Protocol Insulin Aspart 0 unit 04/15/20 21:00 04/18/20 21:10 Novolog SUBCUT Not Given WM&BEDTIME SWATI Protocol Levothyroxine Sodi um 125 mcg 04/16/20 09:00 04/18/20 15:27 Synthroid PO Not Given DAILY SWATI Lorazepam 1 mg 04/15/20 19:10 04/18/20 15:08 Ativan IVP 1 mg Q6H PRN Administration ANXIETY Metoprolol Tartrat e 50 mg 04/16/20 09:00 04/18/20 18:13 Lopressor PO Not Given BID SWATI Metoprolol Tartrat e 5 mg 04/18/20 20:03 Metoprolol Tartr ate IV Q4H PRN HEART RATE-HIGH Multivitamins Ther apeutic 1 tab 04/16/20 09:00 04/18/20 15:27 Multivitamin Tab PO Not Given DAILY SWATI Nystatin 1 applic 04/16/20 09:00 04/18/20 18:13 Nystatin Powder TOPICAL Not Given BID SWATI Ondansetron HCl 4 mg 04/15/20 19:10 Zofran IVP Q6H PRN NAUSEA AND VOMITI NG Pantoprazole Sodiu m 40 mg 04/18/20 09:30 04/18/20 21:13 Protonix IVP 40 mg Q12H SWATI Administration Trazodone HCl 200 mg 04/15/20 21:00 04/18/20 21:13 Desyrel PO 200 mg BEDTIME SWATI Administration clarithromycin Allergy (Unknown, Verified 04/16/20 14:33) Unknown hydrocodone Allergy (Unknown, Verified 04/16/20 14:33) Unknown metformin Allergy (Unknown, Verified 04/16/20 14:33) Unknown sitagliptin [From Januvia] Allergy (Unknown, Verified 04/16/20 14:33) Unknown tetanus and diphtheria toxoids Allergy (Unknown, Verified 04/16/20 14:33) Unknown triamcinolone Allergy (Unknown, Verified 04/16/20 14:33) Unknown Vitals/I&O/Wt Last Vital Signs Temp 98.4 F 04/20/20 10:00 Pulse 101 H 04/20/20 10:00 Resp 14 04/20/20 10:00 BP 79/57 04/20/20 10:00 Pulse Ox 100 04/20/20 10:00 04/19/20 04/20/20 04/20/20 22:59 06:59 14:59 Intake Total 670 / 990 100 / 1090 Output Total 500 / 500 375 / 875 100 / 100 Balance 170 / 490 -275 / 215 -100 / -100 Weight last 48 hrs Weight 110.45 kg Physical Exam Narrative: EXAM NARRATIVE: GEN: somnolent, does not follow commands consistently, however scremas during dtressing change, asks for specific foods CVS: S1S2 N RS: B/L wheezing noted Abd: Soft, nt/nd , bs+ Urinary Catheter Management^: Patino: Cath Placed During This Visit: no Reason for Continuing Indwelling Catheter: Accurate Measurement of Urinary Output in Critically Ill Patients Data : 04/20/20 04:16 04/20/20 04:16 Micro: Microbiology 04/19/20 12:00 C.difficile Toxin B Gene (PCR) - Final Stool - Stool Aspirate 04/16/20 16:40 Gram Stain - Final Sputum - Endotracheal Tube Aspirate Sputum Culture - Final Methicillin Resis Staph Aureus A&P Assessment and plan (1) PERRY (acute kidney injury): -PERRY on CKD stage 3 -baseline Cr appears to be around 1.4 -PERRY is likely multifactorial given dehydration from poor oral intake, medication induced (on diuretics, ACEi). Renal US with poor imaging, on last admission was noted to have significant urinary retention for which Patino needed to be placed, unclear if this was subsequently discontinued at the assisted or frequency of changes if retained-will attempt to verify. Also, CT kidneys today to evaluate for obstructive causes given 3rd episode since December. Cr improving post dialysis, however continues to have intermittent hypotension episodes. -Improved renal function following dialysis -hold nephrotoxins, renally dose meds -Nephrology consult appreciated -Renal US with poor imaging, unable to ascertain obtsruction or hydronephrosis due to body habitus -Patino catheter placed in ED, monitor urine output; assess daily for removal, on last admission, needed to be discharged with Patino due to urinary retention and PERRY. - From January 2020, Normal left ventricular size and systolic function, EF 55 %. Status: Acute (2) UTI (urinary tract infection): -UA indicative of infection, will confirm if patient has a chronic indwelling Patino -urine cx: ESBL E. coli -on Primaxin (day 2) -noted decreased leukocytosis, afebrile x > 48 hrs -Has been quite encephalopathic part of which is due to underlying dementia but this could also be due to lack of targeted treatment as did not have adequate coverage for ESBL E. coli. Level of alertness is improving per notes review -Contact isolation precautions Status: Acute Qualifiers: Hematuria presence: without hematuria Urinary tract infection type: acute cystitis Qualified Code(s): N30.00 - Acute cystitis without hematuria (3) Sepsis: -Present on admission as evidenced by leukocytosis, hypotension, tachycardia, tachypnea, acute renal failure and now has developed acute respiratory failure as well. -on Primaxin -Noted improvement in leukocytosis, continue to trend WBC -T-max of 101.1F on 04/17 AM, has been afebrile since, intermittently tachycardi and hypotensive, extubated on 04/17. Continue to monitor vital signs closely. Weaned off Levophed yesterday. Status: Resolved Qualifiers: Acute respiratory failure type: unspecified Sepsis acute organ dysfunction status: with acute organ dysfunction Sepsis type: sepsis due to unspecified organism Severe sepsis acute organ dysfunction type: acute respiratory failure Severe sepsis shock status: with septic shock Qualified Code(s): A41.9 - Sepsis, unspecified organism; R65.21 - Severe sepsis with septic shock; J96.00 - Acute respiratory failure, unspecified whether with hypoxia or hypercapnia (4) Acute respiratory failure: -Intubated during process of temporary dialysis catheter placement for airway protection due to noted acute mental status change and inability to maintain appropriate positioning -extubated on 04/17 -on Primaxin -increased wheezing, schedule duonebs as h/o COPD, hold off on steroids -Check CT chest for development of any interval pneumonia -sputum cx-few MRSA, gram stain polymicrobial -blood cx: prelim negative -COVID-19 negative Status: Resolved Qualifiers: Respiratory failure complication: unspecified whether with hypoxia or hypercapnia Qualified Code(s): J96.00 - Acute respiratory failure, unspecified whether with hypoxia or hypercapnia (5) Acute metabolic encephalopathy: -Has been quite confused, encephalopathic even following extubation yesterday -This is likely multifactorial as she does have underlying dementia but could also be related to acute renal impairment, sepsis secondary to UTI with noted multidrug resistant organism -Requiring one-to-one monitoring -Low threshold for re-intubation for airway protection -Renal function is improving following dialysis -on Primaxin secondary to urine culture growing ESBL E. coli - on mechanical soft diet, swallow assessment Status: Acute (6) Acute hyperkalemia: -noted to have acute hyperkalemia; normalized today after dialysis session x 1 -received calcium gluconate, insulin, D50 and kayexelate -telemetry monitoring -continue to monitor; hypokalemic so will replace IV as needed pending improved oral tolerance Status: Resolved (7) Chronic kidney disease, stage 3: -as noted above Status: Chronic (8) Vascular dementia: -Quite encephalopathic, requiring one-to-one monitoring -fall, aspiration precautions -re-orient as needed Status: Chronic Qualifiers: Dementia behavioral disturbance: with behavioral disturbance Qualified Code(s): F01.51 - Vascular dementia with behavioral disturbance (9) Type 2 diabetes mellitus: -last A1c-6.6 -Accucheks, ISS, hypoglycemia precautions -hold oral hypoglycemic agents -DM complicated by nephropathy, peripheral vascular disease, neuropathy Status: Chronic Qualifiers: Diabetes mellitus complication status: with other specified complication Diabetes mellitus half-way insulin use: without half-way use Qualified Code(s): E11.69 - Type 2 diabetes mellitus with other specified complication (10) Diabetic nephropathy: -as noted above Status: Chronic Qualifiers: Diabetes mellitus type: type 2 Qualified Code(s): E11.21 - Type 2 diabetes mellitus with diabetic nephropathy (11) Hypertension: -diuretics, ACEi on hold due to renal impairment -B blockers resumed -close monitoring of vital signs; BP improving and able to wean off pressor support overnight Status: Chronic Qualifiers: Hypertension type: essential hypertension Qualified Code(s): I10 - Essential (primary) hypertension (12) Hypothyroidism: -on levothyroxine -TSH elevated (9.87), may need adjustment of levothyroxine dose Status: Chronic Qualifiers: Hypothyroidism type: unspecified Qualified Code(s): E03.9 - Hypothyroidism, unspecified (13) Acute on chronic anemia: -Has acute on chronic normocytic anemia -Baseline hemoglobin appears to be 10-11 -Continue to monitor H&H -Likely multifactorial part of which is secondary to underlying chronic kidney disease Status: Acute (14) Bilateral leg ulcer: Status: Acute (15) Peripheral vascular disease: follows with wound care as outaptient, chronic ulceration over B/L LE with worsening of the left leg compared to previous admission, vascular heel ulcers additionally noted. Plan as per wound care. Colonized with MRSA, currently no gross signs of cellulitis, continue with local wound care. Status: Acute Additional A&P Information -GERD; on PPI -Morbid obesity: BMI-36 kg/m2 though overall has quite poor nutrition status as reflected by hypoalbuminemia which is contributing to lymphedema -Peripheral vascular disease with bilateral LE ulcers; wound care as needed, elevation as tolerated. Recent CTA aorta with runoff. Has been following up with Dr. Peguero at [facility] -large hiatal hernia -Dyslipidemia; on statin -Chronic pain; on narcotics -consistent carb diet -GI ppx with PPI -DVT ppx with heparin -Dispo: came from [facility] -Code status: FULL code, discussed with patient at bedside -Lines: PICC line placed 04/19 -ICU care due to acute renal failure, acute metabolic encephalopathy, sepsis secondary to complicated UTI Attestations Medical Necessity Statement*: continues to have intermittent hypotensive episodes, wheezing today, needs optimization Coding Level of Care Code Acute Balance Sheet Analyst for [facility] Fwd Diagnoses PERRY (acute kidney injury) N17.9 UTI (urinary tract infection) N30.00 Hematuria presence: without hematuria Urinary tract infection type: acute cystitis Sepsis A41.9; R65.21; J96.00 Acute respiratory failure type: unspecified Sepsis acute organ dysfunction status: with acute organ dysfunction Sepsis type: sepsis due to unspecified organism Severe sepsis acute organ dysfunction type: acute respiratory failure Severe sepsis shock status: with septic shock Acute respiratory failure J96.00 Respiratory failure complication: unspecified whether with hypoxia or hypercapnia Acute metabolic encephalopathy G93.41 Acute hyperkalemia E87.5 Chronic kidney disease, stage 3 N18.3 Vascular dementia F01.51 Dementia behavioral disturbance: with behavioral disturbance Type 2 diabetes mellitus E11.69 Diabetes mellitus complication status: with other specified complication 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
[2020-04-20 11:32] LABS: Glucose Point of Care 106 mg/dL (70-110)
--- NOTE | 2020-04-20 11:34 | PC.SOCIAL ---
IMM Updated Updated pt on Pg 2 IMM. No questions voiced. Provided pt a copy. Signed, dated, & timed copy in chart.
[2020-04-20] MEDS: TRAMadol 50 mg Tablet PO ×2 (13:05→18:30)
--- NOTE | 2020-04-20 13:54 | PC.NURSE ---
CT Patient was taken to CT at 1340 and returned to unit at 1350. Patient tolerated well and all vitals WNL
[2020-04-20] MEDS: ipratropium-albuterol 3 mL Neb INHALATION ×2 (14:36→20:08)
[2020-04-20] MEDS: petrolatum oint Pkt 5 gm 1 APPLIC TOPICAL (14:56)
--- NOTE | 2020-04-20 15:16 | PC.NURSE ---
Pt was yelling at this nurse that she was hungry and wanted to eat. This nurse was attempting to feed patient and patient was falling asleep while eating. After signee left room pt continued to pull at cords.
[2020-04-20 16:53] LABS: Glucose Point of Care 116 mg/dL (70-110)
--- NOTE | 2020-04-20 17:37 | PC.NURSE ---
Medication Patient refused PO medication at 1800. This nurse made two attempts and patient was asleep and shouted No when both attempts were made.
[2020-04-20 19:58] LABS: Glucose Point of Care 111 mg/dL (70-110)
[2020-04-20] MEDS: trazodone 100 mg Tablet 200 MG PO (20:03)
[2020-04-20] MEDS: mirtazapine 15 mg Tablet 45 MG PO (20:03)
--- NOTE | 2020-04-20 20:38 | PC.NURSE ---
Patient given PO meds crushed in pudding, able to swallow first bite but was unable to swallow second bite, medications leaked out of mouth onto patient. Patient cleaned up, tolerated ok, unsure of which medications patient actually received.
[2020-04-21] VITALS (17 sets, daily range): BP systolic 108–153; BP diastolic 51–95; PULSE 89–108; RESP 10–23; TEMP 35.6–37; O2SAT 93–99
[2020-04-21] MEDS: ipratropium-albuterol 3 mL Neb INHALATION ×4 (03:02→20:06)
[2020-04-21 04:25] LABS: Basophils % 0.1 %; Eosinophils # 0.6 10^3/uL (0.0-0.8); Eosinophils % 4.4 %; Hematocrit 32.5 % (37.0-47.0); Hemoglobin 9.9 g/dL (11.5-15.3); Lymphocytes # 3.7 10^3/uL (0.8-4.8); Lymphocytes % 27.1 %; Mean Corpuscular HGB Conc 30.5 g/dL (30.0-36.0); Mean Corpuscular Hemoglobin 28.2 pg (28.0-34.0); Mean Corpuscular Volume 92.6 fL (81-99); Monocytes # 1.4 10^3/uL (0.2-0.9); Monocytes % 9.9 %; Neutrophils # 7.87 10^3/uL (1.8-7.7); Neutrophils % 57.5 %; Nucleated Red Blood Cells % 0 %; Platelet Count 337 10^3/cmm (130-400); Red Blood Count 3.51 10^6/uL (4.1-5.3); Red Cell Distribution Width 15.9 % (12.1-15.1); White Blood Count 13.7 10^3/uL (4.0-10.0)
[2020-04-21] MEDS: TRAMadol 50 mg Tablet PO ×2 (04:53→15:54)
[2020-04-21 05:03] LABS: Alanine Aminotransferase 11 U/L (0-33); Albumin Level 2.3 g/dL (3.5-5.2); Alkaline Phosphatase 117 IU/L (35-105); Anion Gap 14.4 (5-19); Aspartate Amino Transferase 20 U/L (0-32); Blood Urea Nitrogen 14 mg/dL (8-23); Calcium 7.9 mg/dL (8.5-10.5); Carbon Dioxide 24 mmol/L (22-29); Chloride 104 mmol/L (98-107); Globulin 3.9 g/dL (1.3-4.6); Glucose 109 mg/dL (65-115); Osmolality Calculated 285 mOsm/kg (285-295); Potassium 3.4 mmol/L (3.5-5.1); Sodium 139 mmol/L (136-145); Total Bilirubin 0.3 mg/dL (0.15-1.2); Total Protein 6.2 g/dL (6.6-8.7)
[2020-04-21 07:37] LABS: Glucose Point of Care 101 mg/dL (70-110)
[2020-04-21] MEDS: pantoprazole 40 mg SDV IVP ×2 (09:26→21:20)
[2020-04-21] MEDS: multivitamin therapeutic Tablet 1 TAB PO (09:26)
[2020-04-21] MEDS: collagenase oint 30 gm 1 APPLIC TOPICAL (09:27)
[2020-04-21] MEDS: metoprolol tartrate 50 mg Tablet PO (09:27)
[2020-04-21] MEDS: ARIPiprazole 10 mg Tablet 5 MG PO ×2 (09:27→17:12)
[2020-04-21] MEDS: levothyroxine 125 mcg Tablet PO (09:27)
[2020-04-21] MEDS: atorvastatin 40 mg Tablet 20 MG PO (09:27)
[2020-04-21] MEDS: fluticasone nasal spray 16gm Btl 2 SPRAY INTRANASAL (09:28)
[2020-04-21] MEDS: nystatin powder 15 gm Btl 1 APPLIC TOPICAL ×2 (09:28→17:15)
[2020-04-21] MEDS: morphine 4 mg/mL SDV 1 mL 2 MG IVP (10:18)
[2020-04-21] MEDS: LORazepam 2 mg/mL INJ 1 mL 1 MG IVP (10:56)
--- NOTE | 2020-04-21 12:01 | PM.PN ---
Subjective Subjective: Interval history: CT CAP without acute pathology, confirmed from [place] patient not on chronic Patino. Very agitated this morning, takes hr pills, but otherwise not particpitaing in conversation, received ativan 30 min ago Medications: Reviewed: Yes Vitals/I&O/Wt Last Vital Signs Temp 98.4 F 04/21/20 04:00 Pulse 108 H 04/21/20 08:02 Resp 20 H 04/21/20 10:00 BP 153/95 04/21/20 10:00 Pulse Ox 93 04/21/20 10:00 04/20/20 04/21/20 04/21/20 22:59 06:59 14:59 Intake Total 390 / 590 100 / 690 Output Total 250 / 350 200 / 550 Balance 140 / 240 -100 / 140 Weight last 48 hrs Weight 110.45 kg Physical Exam Narrative: EXAM NARRATIVE: GEN: somnolent, moves all extremities. picks on leads and her clothes CVS: S1S2 N RS: CTA B/L Abd: Soft, nt/nd , bs+ TIRE SORTER: unable to assess at this time EXT: no edema Urinary Catheter Management^: Patino: Cath Placed During This Visit: no Reason for Continuing Indwelling Catheter: Accurate Measurement of Urinary Output in Critically Ill Patients Data : 04/21/20 03:44 04/21/20 03:44 Micro: Microbiology 04/16/20 09:00 Blood Culture - Final Blood NO GROWTH AFTER 5 DAYS 04/16/20 09:00 Blood Culture - Final Blood NO GROWTH AFTER 5 DAYS A&P Assessment and plan (1) PERRY (acute kidney injury): -PERRY on CKD stage 3 -Cr now improved to 1.0 -PERRY is likely multifactorial given dehydration from poor oral intake, medication induced (on diuretics, ACEi). Renal US with poor imaging, on last admission was noted to have significant urinary retention for which Patino needed to be placed, this was subsequently removed. CT A/p yesterday without any signs of obstructive uropathy -Improved renal function following dialysis -hold nephrotoxins, renally dose meds -Nephrology consult appreciated - From January 2020, Normal left ventricular size and systolic function, EF 55 %. Status: Acute (2) UTI (urinary tract infection): -UA indicative of infection -urine cx: ESBL E. coli -on Primaxin (day 4) -improved leukocytosis, though persisting at ~13, afebrile x > 48 hrs, no signs of untreated infection at this present time -Has been quite encephalopathic part of which is due to underlying dementia, hospital delirium Status: Acute Qualifiers: Urinary tract infection type: acute cystitis Hematuria presence: without hematuria Qualified Code(s): N30.00 - Acute cystitis without hematuria (3) Sepsis: -Present on admission as evidenced by leukocytosis, hypotension, tachycardia, tachypnea, acute renal failure and now has developed acute respiratory failure as well. -on Primaxin -Noted improvement in leukocytosis, continue to trend WBC -Toff levophed now - CT CAP without any signs of untreated or new infectious process Status: Resolved Qualifiers: Sepsis type: sepsis due to unspecified organism Sepsis acute organ dysfunction status: with acute organ dysfunction Severe sepsis acute organ dysfunction type: acute respiratory failure Acute respiratory failure type: unspecified Severe sepsis shock status: with septic shock Qualified Code(s): A41.9 - Sepsis, unspecified organism; R65.21 - Severe sepsis with septic shock; J96.00 - Acute respiratory failure, unspecified whether with hypoxia or hypercapnia (4) Acute respiratory failure: -Intubated during process of temporary dialysis catheter placement for airway protection due to noted acute mental status change and inability to maintain appropriate positioning -extubated on 04/17 -on Primaxin -increased wheezing, schedule duonebs as h/o COPD, hold off on steroids -Check CT chest for development of any interval pneumonia -sputum cx-few MRSA, gram stain polymicrobial -blood cx: prelim negative -COVID-19 negative Status: Resolved Qualifiers: Respiratory failure complication: unspecified whether with hypoxia or hypercapnia Qualified Code(s): J96.00 - Acute respiratory failure, unspecified whether with hypoxia or hypercapnia (5) Acute metabolic encephalopathy: -Has been quite confused, encephalopathic even following extubation - moves all extremities while laying in bed, no focal neurological deficits to suspect CVA -findings consistent with delirium, this is likely multifactorial as she does have underlying dementia but could also be related to acute renal impairment, sepsis secondary to UTI with noted multidrug resistant organism -Stop Ativan, resumed home dose of mirtazipine yesetrday, continue abilify, added zyprexa -Requiring one-to-one monitoring -Low threshold for re-intubation for airway protection -Renal function is improving following dialysis -on Primaxin secondary to urine culture growing ESBL E. coli - on mechanical soft diet, swallow assessment Status: Acute (6) Acute hyperkalemia: -noted to have acute hyperkalemia; normalized today after dialysis session x 1 -received calcium gluconate, insulin, D50 and kayexelate -telemetry monitoring -continue to monitor; hypokalemic so will replace IV as needed pending improved oral tolerance Status: Resolved (7) Chronic kidney disease, stage 3: -as noted above Status: Chronic (8) Vascular dementia: -Quite encephalopathic, requiring one-to-one monitoring -fall, aspiration precautions -re-orient as needed Status: Chronic Qualifiers: Dementia behavioral disturbance: with behavioral disturbance Qualified Code(s): F01.51 - Vascular dementia with behavioral disturbance (9) Type 2 diabetes mellitus: -last A1c-6.6 -Accucheks, ISS, hypoglycemia precautions -hold oral hypoglycemic agents -DM complicated by nephropathy, peripheral vascular disease, neuropathy Status: Chronic Qualifiers: Diabetes mellitus complication status: with other specified complication Diabetes mellitus 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 crane engine operator insulin use: without wrecking crane engine operator use Qualified Code(s): E11.69 - Type 2 diabetes mellitus with other specified complication (10) Diabetic nephropathy: -as noted above Status: Chronic Qualifiers: Diabetes mellitus type: type 2 Qualified Code(s): E11.21 - Type 2 diabetes mellitus with diabetic nephropathy (11) Hypertension: -diuretics, ACEi on hold due to renal impairment -B blockers resumed -close monitoring of vital signs; BP improving and able to wean off pressor support overnight Status: Chronic Qualifiers: Hypertension type: essential hypertension Qualified Code(s): I10 - Essential (primary) hypertension (12) Hypothyroidism: -on levothyroxine -TSH elevated (9.87), may need adjustment of levothyroxine dose Status: Chronic Qualifiers: Hypothyroidism type: unspecified Qualified Code(s): E03.9 - Hypothyroidism, unspecified (13) Acute on chronic anemia: -Has acute on chronic normocytic anemia -Baseline hemoglobin appears to be 10-11 -Continue to monitor H&H -Likely multifactorial part of which is secondary to underlying chronic kidney disease Status: Acute (14) Bilateral leg ulcer: Status: Acute (15) Peripheral vascular disease: follows with wound care as outaptient, chronic ulceration over B/L LE with worsening of the left leg compared to previous admission, vascular heel ulcers additionally noted. Plan as per wound care. Colonized with MRSA, currently no gross signs of cellulitis, continue with local wound care. Status: Acute Additional A&P Information -GERD; on PPI -Morbid obesity: BMI-36 kg/m2 though overall has quite poor nutrition status as reflected by hypoalbuminemia which is contributing to lymphedema -Peripheral vascular disease with bilateral LE ulcers; wound care as needed, elevation as tolerated. Recent CTA aorta with runoff. Has been following up with Dr. Peguero at [facility] -large hiatal hernia -Dyslipidemia; on statin -Chronic pain; on narcotics -consistent carb diet -GI ppx with PPI -DVT ppx with heparin -[place] [facility] [place]Code status: FULL code, discussed with patient at bedside -Lines: PICC line placed 04/19 -Transfer out of ICU to med/surg with 1:1 sitter Attestations Medical Necessity Statement*: needs improvement in delirium prior to discharge Coding Level of Care Code Acute Power Equipment Technology Instructor for Chg Fwd Diagnoses PERRY (acute kidney injury) N17.9 UTI (urinary tract infection) N30.00 Urinary tract infection type: acute cystitis Hematuria presence: without hematuria Sepsis A41.9; R65.21; J96.00 Sepsis type: sepsis due to unspecified organism Sepsis acute organ dysfunction status: with acute organ dysfunction Severe sepsis acute organ dysfunction type: acute respiratory failure Acute respiratory failure type: unspecified Severe sepsis shock status: with septic shock Acute respiratory failure J96.00 Respiratory failure complication: unspecified whether with hypoxia or hypercapnia Acute metabolic encephalopathy G93.41 Acute hyperkalemia E87.5 Chronic kidney disease, stage 3 N18.3 Vascular dementia F01.51 Dementia behavioral disturbance: with behavioral disturbance Type 2 diabetes mellitus E11.69 Diabetes mellitus complication status: with other specified complication Diabetes mellitus chcf insulin use: without chcf use Diabetic nephropathy E11.21 Diabetes mellitus type: type 2 Hypertension I10 Hypertension type: essential hypertension Hypothyroidism E03.9 Hypothyroidism type: unspecified Acute on chronic anemia D64.9 Bilateral leg ulcer L97.919; L97.929 Peripheral vascular disease I73.9
[2020-04-21 12:12] LABS: Glucose Point of Care 124 mg/dL (70-110)
[2020-04-21] MEDS: heparin 5,000 unit/mL INJ 1 mL 5000 UNIT SUBCUT ×2 (13:09→21:13)
--- NOTE | 2020-04-21 14:03 | PC.NURSE ---
transfer PT was transferred by bed to [facility] at 1345. All belongings were taken with patient. Patient tolerated well.
[2020-04-21 16:40] LABS: Glucose Point of Care 103 mg/dL (70-110)
[2020-04-21] MEDS: metoprolol tartrate 50 mg Tablet 75 MG PO (17:11)
[2020-04-21] MEDS: mirtazapine 15 mg Tablet 45 MG PO (21:14)
[2020-04-21 21:28] LABS: Glucose Point of Care 98 mg/dL (70-110)
[2020-04-22] VITALS (15 sets, daily range): BP systolic 117–164; BP diastolic 58–77; PULSE 88–110; RESP 14–24; TEMP 36.6–37.7; O2SAT 94–99
[2020-04-22] MEDS: haloperidol inj 5 mg/mL INJ 1 mL IVP (00:55)
[2020-04-22] MEDS: morphine 4 mg/mL SDV 1 mL 2 MG IVP ×2 (02:21→15:21)
[2020-04-22] MEDS: ipratropium-albuterol 3 mL Neb INHALATION ×3 (02:56→15:00)
[2020-04-22] MEDS: heparin 5,000 unit/mL INJ 1 mL 5000 UNIT SUBCUT ×2 (04:15→15:57)
[2020-04-22 05:37] LABS: Basophils % 0.2 %; Eosinophils # 0.8 10^3/uL (0.0-0.8); Eosinophils % 6.1 %; Hematocrit 32.5 % (37.0-47.0); Lymphocytes # 3.8 10^3/uL (0.8-4.8); Lymphocytes % 30.7 %; Mean Corpuscular HGB Conc 30.8 g/dL (30.0-36.0); Mean Corpuscular Hemoglobin 28.1 pg (28.0-34.0); Mean Corpuscular Volume 91.3 fL (81-99); Mean Platelet Volume 9.1 fL (7.4-10.4); Monocytes # 1.1 10^3/uL (0.2-0.9); Monocytes % 9.2 %; Neutrophils # 6.47 10^3/uL (1.8-7.7); Neutrophils % 53.1 %; Nucleated Red Blood Cells % 0 %; Platelet Count 346 10^3/cmm (130-400); Red Blood Count 3.56 10^6/uL (4.1-5.3); Red Cell Distribution Width 15.9 % (12.1-15.1); White Blood Count 12.2 10^3/uL (4.0-10.0)
[2020-04-22 06:00] LABS: Alanine Aminotransferase 10 U/L (0-33); Albumin Level 2.3 g/dL (3.5-5.2); Alkaline Phosphatase 117 IU/L (35-105); Anion Gap 13.5 (5-19); Aspartate Amino Transferase 18 U/L (0-32); Blood Urea Nitrogen 12 mg/dL (8-23); Calcium 7.8 mg/dL (8.5-10.5); Carbon Dioxide 23 mmol/L (22-29); Chloride 106 mmol/L (98-107); Glucose 112 mg/dL (65-115); Osmolality Calculated 285 mOsm/kg (285-295); Potassium 3.5 mmol/L (3.5-5.1); Sodium 139 mmol/L (136-145); Total Bilirubin 0.2 mg/dL (0.15-1.2); Total Protein 6.3 g/dL (6.6-8.7)
[2020-04-22 06:59] LABS: Glucose Point of Care 122 mg/dL (70-110)
[2020-04-22] MEDS: ARIPiprazole 10 mg Tablet 5 MG PO (07:55)
[2020-04-22] MEDS: levothyroxine 125 mcg Tablet PO (07:55)
[2020-04-22] MEDS: OLANZapine 5 mg ODT PO (07:56)
[2020-04-22] MEDS: atorvastatin 40 mg Tablet 20 MG PO (07:56)
[2020-04-22] MEDS: metoprolol tartrate 50 mg Tablet 75 MG PO (07:57)
[2020-04-22] MEDS: multivitamin therapeutic Tablet 1 TAB PO (07:58)
[2020-04-22] MEDS: fluticasone nasal spray 16gm Btl 2 SPRAY INTRANASAL (08:01)
[2020-04-22] MEDS: collagenase oint 30 gm 1 APPLIC TOPICAL (08:02)
[2020-04-22] MEDS: pantoprazole 40 mg SDV IVP (09:47)
[2020-04-22] MEDS: nystatin powder 15 gm Btl 1 APPLIC TOPICAL (10:12)
[2020-04-22 10:45] LABS: Glucose Point of Care 109 mg/dL (70-110)
--- NOTE | 2020-04-22 12:00 | PC.SOCIAL ---
IMM Page 2 of IMM explained to patient. Initialed, dated, and timed and placed in chart. Copy provided to patient.
--- NOTE | 2020-04-22 14:49 | P.DS_ITS ---
Discharge Providers Date of Admission: 04/15/20 17:37 Date of Discharge: April 22, 2020 Attending Provider at Admission: Milagros Mcpherson MD Attending Provider at Discharge: Niurka Miramontes MD Primary Care Provider: Huang Herrera MD, [facility] Diagnoses at Discharge Discharge Diagnosis (1) PERRY (acute kidney injury): Status: Acute (2) UTI (urinary tract infection): Status: Acute Qualifiers: Hematuria presence: without hematuria Urinary tract infection type: acute cystitis Qualified Code(s): N30.00 - Acute cystitis without hematuria (3) Sepsis: Status: Resolved Qualifiers: Acute respiratory failure type: unspecified Sepsis acute organ dysfunction status: with acute organ dysfunction Sepsis type: sepsis due to unspecified organism Severe sepsis acute organ dysfunction type: acute respiratory failure Severe sepsis shock status: with septic shock Qualified Code(s): A41.9 - Sepsis, unspecified organism; R65.21 - Severe sepsis with septic shock; J96.00 - Acute respiratory failure, unspecified whether with hypoxia or hypercapnia (4) Acute respiratory failure: Status: Resolved Qualifiers: Respiratory failure complication: unspecified whether with hypoxia or hypercapnia Qualified Code(s): J96.00 - Acute respiratory failure, unspecified whether with hypoxia or hypercapnia (5) Acute metabolic encephalopathy: Status: Acute (6) Acute hyperkalemia: Status: Resolved (7) Chronic kidney disease, stage 3: Status: Chronic (8) Vascular dementia: Status: Chronic Qualifiers: Dementia behavioral disturbance: with behavioral disturbance Qualified Code(s): F01.51 - Vascular dementia with behavioral disturbance (9) Type 2 diabetes mellitus: Status: Chronic Qualifiers: Diabetes mellitus complication status: with other specified complication Diabetes 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 insulin use: without moth 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 use Qualified Code(s): E11.69 - Type 2 diabetes mellitus with other specified complication (10) Diabetic nephropathy: Status: Chronic Qualifiers: Diabetes mellitus type: type 2 Qualified Code(s): E11.21 - Type 2 diabetes mellitus with diabetic nephropathy (11) Hypertension: Status: Chronic Qualifiers: Hypertension type: essential hypertension Qualified Code(s): I10 - Essential (primary) hypertension (12) Hypothyroidism: Status: Chronic Qualifiers: Hypothyroidism type: unspecified Qualified Code(s): E03.9 - Hypothyroidism, unspecified (13) Acute on chronic anemia: Status: Acute (14) Bilateral leg ulcer: Status: Acute (15) Peripheral vascular disease: Status: Acute Reason for Visit Reason for Visit: CRITICALLY HIGH POTASSIUM Hospital Course Discharge Summary: Leatha Emery is a 69 year old female who is a resident of [facility] [place] presents following findings of abnormal potassium during labs done at the detention. Per detention staff patient had been noted to have some altered mental status following which she had work-up which included chest x-ray suggestive of developing mild left medial basilar infiltrates from report in the chart, urinalysis, labs. Based on chest x-ray report she was started on Levaquin. She has been noted to have chronic lower extremity ulcers for which she has been following up at the wound care clinic with Dr. Mathews. Work-up revealed leukocytosis with a white count of 14.4, hemoglobin of 10.7, potassium of 6.9, BUN of 102, creatinine of 4.9, anion gap of 21.9, blood glucose of 91, ALP of 132 with otherwise normal LFTs. Urinalysis is indicative of infection. Chest x-ray here is unremarkable. Covid 19 testingwas negative Notable hospital events and management as follows : #PERRY -PERRY on CKD stage 3 -Cr now improved to 1.0 -PERRY is likely multifactorial given dehydration from poor oral intake, medication induced (on diuretics, ACEi). Renal US with poor imaging, on last admission was noted to have significant urinary retention for which Patino needed to be placed, this was subsequently removed. CT A/p without any signs of obstructive uropathy -Improved renal function following dialysis x 1 -holding nephrotoxins, renally dose meds -Nephrology consult appreciated -From January 2020, Normal left ventricular size and systolic function, EF 55 %. # UTI -UA indicative of infection -urine cx: ESBL E. coli -on Primaxin (day 4) --> switched to Ertapenem for discharge for additional 4 days of treatment -improved leukocytosis, though persisting at ~13, afebrile x > 48 hrs, no signs of untreated infection at this present time -Has been quite encephalopathic part of which is due to underlying dementia, hospital delirium, today she is improved, able to have appropriate conversations. Zyprexa has been added initially. # Sepsis: -Present on admission as evidenced by leukocytosis, hypotension, tachycardia, tachypnea, acute renal failure a -on Primaxin, switched to ertapenem -Noted improvement in leukocytosis, continue to trend WBC - CT CAP without any signs of untreated or new infectious process # Acute respiratory failure: -Intubated during process of temporary dialysis catheter placement for airway protection due to noted acute mental status change and inability to maintain appropriate positioning -extubated on 04/17 -increased wheezing, schedule duonebs as h/o COPD, hold off on steroids as clinically improving -Check CT without any pneumonia -blood cx: prelim negative -COVID-19 negative # Acute metabolic encephalopathy: -Has been quite confused, encephalopathic even following extubation - moves all extremities while laying in bed, no focal neurological deficits to suspect CVA -findings consistent with delirium, this is likely multifactorial as she does have underlying dementia but could also be related to acute renal impairment, sepsis secondary to UTI with noted multidrug resistant organism. -Stop Ativan, resumed home dose of mirtazipine yesetrday, continue abilify, added zyprexa, much improved mentation after these interventions -Requiring one-to-one monitoring -Low threshold for re-intubation for airway protection -Renal function is improving following dialysis -on Primaxin secondary to urine culture growing ESBL E. coli - on mechanical soft diet, swallow assessment # -noted to have acute hyperkalemia; normalized today after dialysis session x 1 -received calcium gluconate, insulin, D50 and kayexelate -telemetry monitoring -continue to monitor; hypokalemic so will replace IV as needed pending improved oral # Type 2 diabetes mellitus: -last A1c-6.6 -Accucheks, ISS, hypoglycemia precautions -hold oral hypoglycemic agents -DM complicated by nephropathy, peripheral vascular disease, neuropathy # Acute on chronic anemia: -Has acute on chronic normocytic anemia -Baseline hemoglobin appears to be 10-11 -Continue to monitor H&H -Likely multifactorial part of which is secondary to underlying chronic kidney disease -GERD; on PPI -Morbid obesity: BMI-36 kg/m2 though overall has quite poor nutrition status as reflected by hypoalbuminemia which is contributing to lymphedema -Peripheral vascular disease with bilateral LE ulcers; wound care as needed, elevation as tolerated. Recent CTA aorta with runoff. Has been following up with Dr. Peguero at 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: no focal neuro deficits Urinary Catheter Management^: Patino: Cath Placed During This Visit: no Reason for Continuing Indwelling Catheter: Accurate Measurement of Urinary Output in Critically Ill Patients Discharge Data Data Completed and Pending: Completed Studies During Hospitalization Category Date Time Status CT chest wo con 7 1250 Routine Cat Scan 04/20/20 10:[address] kidney stone 7 4176 Routine Cat Scan 04/20/20 10:22 Completed CXRP [XR chest 1V portable [id number]] R outine Exams 04/18/20 11:42 Completed CXRP [XR chest 1V portable 54521] S tat Exams 04/16/20 15:54 Completed XR chest 1V susan ble 40597 Routine Exams 04/17/20 06:00 Completed XR chest 1V susan ble 53068 Stat Exams 04/15/20 16:01 Completed US renal BI with bladder Routine Ultrasound 04/16/20 18:29 Completed Labs from last 24 hours 04/22/20 04/22/20 04/22/20 10:40 06:36 04:31 WBC RBC Hgb Hct MCV MCH MCHC RDW Plt Count MPV Neut % (Auto) Lymph % (Auto) [place] % (Auto) Eos % (Auto) Baso % (Auto) Neut # (Auto) Lymph # (Auto) [place] # (Auto) Eos # (Auto) Baso # (Auto) Nucleated RBC % (a uto) Nucleated RBCs # Sodium 139 Potassium 3.5 Chloride 106 Carbon Dioxide 23 Anion Gap 13.5 BUN 12 Creatinine 0.9 GFR Calculation Not Reportable Glucose 112 POC Glucose 109 122 Calculated Osmolal ity 285 Calcium 7.8 L Total Bilirubin 0.2 AST 18 ALT 10 Alkaline Phosphata se 117 H Total Protein 6.3 L Albumin 2.3 L Globulin 4.0 04/22/20 04/21/20 04/21/20 04:31 20:08 16:37 WBC 12.2 H RBC 3.56 L Hgb 10.0 L Hct 32.5 L MCV 91.3 MCH 28.1 MCHC 30.8 RDW 15.9 H Plt Count 346 MPV 9.1 Neut % (Auto) 53.1 Lymph % (Auto) 30.7 [place] % (Auto) 9.2 Eos % (Auto) 6.1 Baso % (Auto) 0.2 Neut # (Auto) 6.47 Lymph # (Auto) 3.8 [place] # (Auto) 1.1 H Eos # (Auto) 0.8 Baso # (Auto) 0.0 Nucleated RBC % (a uto) 0 Nucleated RBCs # 0.0 Sodium Potassium Chloride Carbon Dioxide Anion Gap BUN Creatinine GFR Calculation Glucose POC Glucose 98 103 Calculated Osmolal ity Calcium Total Bilirubin AST ALT Alkaline Phosphata se Total Protein Albumin Globulin Vitals: Last Vital Signs Temp 97.9 F 04/22/20 11:28 Pulse 88 04/22/20 11:28 Resp 18 04/22/20 11:28 BP 164/62 04/22/20 11:28 Pulse Ox 96 04/22/20 11:28 Discharge Plan Discharge Patient Disposition: Home Condition: Stable Prescriptions: New tramadol 50 mg Tablet 50 mg PO Q8H PRN (Reason: Moderate Pain) 15 Days Qty: 45 RF: 0 metoprolol tartrate 50 mg Tablet 75 mg PO BID 30 Days Qty: 90 RF: 0 olanzapine 5 mg Tablet,Disintegrating 5 mg PO DAILY 30 Days Qty: 30 RF: 0 ertapenem 1 gram recon soln 1 gm IV DAILY 4 Days RF: 0 Continued Pro-Stat AWC 17-100 gram-kcal/30 mL Liquid 1 ea PO DAILY RF: 0 multivitamin Tablet 1 tab PO DAILY RF: 0 furosemide [Lasix] 40 mg Tablet 40 mg PO DAILY RF: 0 acetaminophen 325 mg Tablet 650 mg PO QID PRN (Reason: Pain) RF: 0 polyethylene glycol 3350 [Miralax] 17 gram Powder In Packet 17 g PO DAILY PRN (Reason: Constipation) RF: 0 melatonin 3 mg Tablet 5 mg PO DAILY RF: 0 amlodipine 5 mg Tablet 5 mg PO DAILY RF: 0 Hold Instructions: Resume on 02/03/20. After checking blood pressure magnesium hydroxide [Milk of Magnesia] 400 mg/5 mL Suspension 30 ml PO DAILY PRN (Reason: Constipation) RF: 0 calcium carbonate 500 mg calcium (1,250 mg) Tablet 500 mg PO DAILY RF: 0 oxycodone-acetaminophen 10-325 mg Tablet 1 tab PO Q4H PRN (Reason: Pain) RF: 0 oxycodone-acetaminophen 10-325 mg Tablet 1 tab PO DAILY RF: 0 trazodone 100 mg Tablet 200 mg PO BEDTIME RF: 0 bisacodyl 10 mg Suppository 10 mg TN DAILY PRN (Reason: Constipation) RF: 0 pantoprazole 40 mg Tablet,Delayed Release (Dr/Ec) 40 mg PO DAILY RF: 0 simvastatin 20 mg Tablet 20 mg PO DAILY RF: 0 levothyroxine 125 mcg Tablet 125 mcg PO DAILY RF: 0 lisinopril 10 mg Tablet 10 mg PO DAILY RF: 0 Hold Instructions: Resume on 02/03/20. After checking blood pressure mirtazapine 45 mg Tablet 45 mg PO DAILY RF: 0 nystatin 100,000 unit/gram Powder 1 applic TOPICAL BID RF: 0 fluticasone propionate 50 mcg/actuation [place],Suspension 2 spray INTRANASAL DAILY RF: 0 aripiprazole 5 mg Tablet 5 mg PO BID RF: 0 senna 8.6 mg Capsule 8.6 mg PO BID RF: 0 venlafaxine 150 mg Tablet Extended Release 24hr 150 mg PO DAILY RF: 0 Toviaz 4 mg Tablet Extended Release 24 Hr 4 mg PO DAILY RF: 0 Tradjenta 5 mg Tablet 5 mg PO DAILY RF: 0 Farxiga 5 mg Tablet 5 mg PO DAILY RF: 0 Breo Ellipta 200-25 mcg/dose Blister With Device 1 inh INHALATION DAILY RF: 0 Discontinued levofloxacin [Levaquin] 750 mg Tablet 750 mg PO DAILY RF: 0 metoprolol tartrate 100 mg Tablet 100 mg PO BID RF: 0 Discharge Orders: Discharge Order (Routine); Ordered 04/22/20 Ordered By: Niurka Miramontes Referrals: [facility]Outside[facility], [Staff Physician] - 04/24/20 3:30 pm Discharge Diet: Usual diet Discharge Activity: Resume usual activity Patient Instructions: Metoprolol (By mouth), Tramadol (By mouth), Olanzapine (By mouth) Discharge Attestations Time Spent in Discharge Care*: greater than 30 min Quality Metrics Clinical Quality Measures During this hospital stay, did patient experience: None Coding Level of Care Code Acute Lead Man Over All Dies In [employer] for [facility] Fwd Diagnoses PERRY (acute kidney injury) N17.9 UTI (urinary tract infection) N30.00 Hematuria presence: without hematuria Urinary tract infection type: acute cystitis Sepsis A41.9; R65.21; J96.00 Acute respiratory failure type: unspecified Sepsis acute organ dysfunction status: with acute organ dysfunction Sepsis type: sepsis due to unspecified organism Severe sepsis acute organ dysfunction type: acute respiratory failure Severe sepsis shock status: with septic shock Acute respiratory failure J96.00 Respiratory failure complication: unspecified whether with hypoxia or hypercapnia Acute metabolic encephalopathy G93.41 Acute hyperkalemia E87.5 Chronic kidney disease, stage 3 N18.3 Vascular dementia F01.51 Dementia behavioral disturbance: with behavioral disturbance Type 2 diabetes mellitus E11.69 Diabetes mellitus complication status: with other specified complication Diabetes 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 insulin use: without assisted use Diabetic nephropathy E11.21 Diabetes mellitus type: type 2 Hypertension I10 Hypertension type: essential hypertension Hypothyroidism E03.9 Hypothyroidism type: unspecified Acute on chronic anemia D64.9 Bilateral leg ulcer L97.919; L97.929 Peripheral vascular disease I73.9
[2020-04-22 16:10] LABS: Glucose Point of Care 132 mg/dL (70-110)
== END 2020-04-22 17:30 | disposition home or self-care (01) | DRG 871 ==
LOC: ER 17:58 → ICU 19:05 → MEDSURG 04-21 13:48
PROVIDERS: Internal Medicine Nephrology; Surgery; Admitting Provider Family Medicine; Emergency Provider Family Medicine; PCP Family Medicine; Visit Provider Student in an Organized Health Care Education/Training Program
DX: A41.9 Sepsis, unspecified organism (principal); R65.21 Severe sepsis with septic shock; G93.41 Metabolic encephalopathy; J96.00 Acute respiratory failure, unspecified whether with hypoxia or hypercapnia; N17.9 Acute kidney failure, unspecified; L97.909 Non-pressure chronic ulcer of unspecified part of unspecified lower leg with unspecified severity; N30.00 Acute cystitis without hematuria; F01.51 Vascular dementia, unspecified severity, with behavioral disturbance; Z68.42 Body mass index [BMI] 45.0-49.9, adult; E03.9 Hypothyroidism, unspecified; E11.21 Type 2 diabetes mellitus with diabetic nephropathy; N18.3 Chronic kidney disease, stage 3 (moderate); I12.9 Hypertensive chronic kidney disease with stage 1 through stage 4 chronic kidney disease, or unspecified chronic kidney disease; E11.22 Type 2 diabetes mellitus with diabetic chronic kidney disease; E87.5 Hyperkalemia; F01.50 Vascular dementia, unspecified severity, without behavioral disturbance, psychotic disturbance, mood disturbance, and anxiety; D63.1 Anemia in chronic kidney disease; E11.51 Type 2 diabetes mellitus with diabetic peripheral angiopathy without gangrene; E66.01 Morbid (severe) obesity due to excess calories; Z11.59 Encounter for screening for other viral diseases; J44.9 Chronic obstructive pulmonary disease, unspecified; G47.33 Obstructive sleep apnea (adult) (pediatric); K21.9 Gastro-esophageal reflux disease without esophagitis
CPT/HCPCS: 12345; 36415; 36416; 36569; 36592; 36600; 71045; 71250; 74176; 76770; 76857; 80051; 80053; 81001; 81003; 82310; 82436; 82550; 82803; 82810; 82962; 83690; 83735; 83970; 83986; 84100; 84133; 84300; 84443; 85025; 85378; 85610; 85730; 86060; 86706; 86803; 87040; 87070; 87077; 87086; 87186; 87205; 87340; 87493; 87635; 90935; 92526; 92610; 93005; 94002; 94003; 94640; 94799; 96372; 96375; 99283; A4570; C9113; J0610; J0696; J0743; J1160; J1630; J1644; J1815; J1940; J2060; J2270; J2543; J2704; J3010; J3480; J7030; J7040; Q3014

== ENCOUNTER 2020-04-24 15:22 | Outpatient (CLI) | payer MEDICARE, MEDICAID, SELFPAY | END 2020-04-24 15:23 | disposition home or self-care (01) | LOC: WOUND 15:23 | PROVIDERS: PCP Family Medicine; Visit Provider Surgery | DX: I73.9 Peripheral vascular disease, unspecified (principal); L97.822 Non-pressure chronic ulcer of other part of left lower leg with fat layer exposed; E11.621 Type 2 diabetes mellitus with foot ulcer; L97.429 Non-pressure chronic ulcer of left heel and midfoot with unspecified severity; I89.0 Lymphedema, not elsewhere classified; I87.2 Venous insufficiency (chronic) (peripheral); L97.811 Non-pressure chronic ulcer of other part of right lower leg limited to breakdown of skin | CPT/HCPCS: 11042; 11045 ==

== ENCOUNTER 2020-05-08 08:25 | Inpatient (IN) | payer MEDICARE, MEDICAID, SELFPAY ==
[2020-05-08] VITALS (92 sets, daily range): BP systolic 56–153; BP diastolic 34–83; PULSE 84–160; RESP 8–24; TEMP 36.8–38.1; O2SAT 88–100; BMI 41.3
--- NOTE | 2020-05-08 08:30 | XR_ITS ---
WS: [id number] Portable AP upright chest, 05/08/2020 Clinical Data: sob Comparison: Portable chest, 04/18/2020 Findings: No nodules, masses or effusions are seen. The heart is enlarged. The pulmonary vascularity is not increased. No pneumonia or pneumothorax is seen. The right PICC line barely enters the superio r vena cava. The dialysis catheter has been removed. There is a large hiatal hernia. There is a dextr oscoliosis of the upper thoracic spine. Monitor leads are on the chest wall. There is a thin metal ob ject overlying the right side of the lower neck which may represent a needle on the patient's skin. XR/XR chest 1V portable [id number] Impression: 1. Negative for acute cardiopulmonary disease. 2. Large hiatal hernia.
--- NOTE | 2020-05-08 08:30 | ECG_ITS ---
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 Measurements Intervals [place] Rate: 119 P: DE: -1 QRS: 66 QRSD: 89 T: 253 QT: 328 QTc: 462 Interpretive Statements ATRIAL FIBRILLATION WITH RAPID VENTRICULAR RESPONSE. SIGNIFICANT BASELINE ARTIFACT Nonspecific ST-T wave changes Compared to ECG 04/16/2020 14:24:28 Atrial abnormality no longer present ST (T wave) deviation no longer present Electronically Signed On 05-08-2020 13:34:49 CDT by Steve Kevin M.D. [id number]
--- NOTE | 2020-05-08 08:30 | CT_ITS ---
WS: [id number] CT HEAD TECHNIQUE: Noncontrast CT of the head obtained from the skullbase to the vertex. CLINICAL INFORMATION: ams COMPARISON: 2006 DLP: 924.[address] scans at [facility] use at least one of these dose optimization techniques: automat ed exposure control; mA and/or kV adjustment per patient size (includes targeted exams where dose is matched to clinical indication); or iterative reconstruction. FINDINGS: Patient is rotated in the scanner which limits examination No evidence of intracranial hemorrhage or mass effect. Ventricular system and basal cisterns are mcelroy nt. Moderate small vessel changes with moderate parenchymal volume loss. 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 Encephalomalacia right temporal lobe. Pa ranasal sinuses and mastoid air cells well aerated. No extra-axial fluid collections. No evidence of mass or mass effect. Normal umaña-white differentiation. Paranasal sinuses and mastoid air cells are well aerated. .Normal visualized soft tissues. Attempted Donal Ramirez MD at 05/08/2020 9:[address]/CT head wo con* [id number] IMPRESSION: 1. No evidence of intracranial hemorrhage or mass effect. 2. Moderate small vessel changes with moderate parenchymal volume loss. 3. Chronic appearing infarct involving the right posterior frontal and parieta l lobes with encephalomalacia. Encephalomalacia right anterior temporal lobe. 4. No acute intracranial findings.
--- NOTE | 2020-05-08 08:32 | ED_ITS ---
HPI - Altered Mental Status General: Chief Complaint: Altered Mental Status Stated Complaint: ALOC/ LOW O2 Time Seen by Provider: 05/08/20 08:26 Source: patient and EMS Mode of arrival: EMS Limitations: no limitations History of Present Illness: HPI narrative: 69-year-old female who is here from [facility]. Patient has multiple medical problems and is currently on IV antibiotics for leg wounds. Per EMS patient had a period of altered mental status and loss of consciousness at detention that lasted a few minutes. Patient also hypotensive and hypoxic. Patient currently is awake and alert. She does have a history of COPD. She has no complaints at this time. She does have some slight confusion. She had no fevers. Patient is hypotensive. Associated symptoms: Deny depression Review of Systems Const: Denies: fever(s), chills, body aches or change in appetite Eyes: Denies: blurry vision or eye discomfort ENMT: Denies: throat pain or dental pain Card: Denies: chest pain Resp: Reports: dyspnea GI: Denies: abdominal pain, nausea, vomiting or diarrhea : Denies: dysuria Musc: Denies: neck pain or back pain Skin/Breast: Reports: erythema Neuro: Reports: weakness in extremities Psych: Denies: depression Vitor/Lymph: Denies: easy bruising All/Imm: Denies: urticaria PFSH ED PFSH: Medical History (Updated 05/08/20 @ 10:57 by Donal Ramirez MD) Chronic kidney disease, stage 3 COPD (chronic obstructive pulmonary disease) Diabetic nephropathy Hypertension Hypothyroidism Leg ulcer, left PVD (peripheral vascular disease) Sleep apnea Type 2 diabetes mellitus Vascular dementia Surgical History History of bilateral knee arthroplasty S/P breast lumpectomy Family History Father Diabetes Hypertension Mother CAD (coronary artery disease) Hypertension Social History Smoking and tobacco status: never smoked Alcohol intake: never Household members: other Housing: [facility] Current gender identity: Female Additional social history: -lives at [facility] Physical Exam Const: COMMON NORMALS: no acute distress; negative for patient oriented x3 GENERAL APPEARANCE: ill appearing HENMT: COMMON NORMALS: normocephalic and atraumatic HEAD & SCALP: normocephalic and atraumatic Eye: COMMON NORMALS: Equal, round and reactive pupils present and EOMs intact bilaterally PUPIL: Yes Equal, round and reactive pupils present Neck/C-Spine: COMMON NORMALS: full ROM and supple Chest: COMMONS NORMALS: normal inspection of the chest and normal palpation of entire chest wall Resp: COMMON NORMALS: normal respiratory effort, No retractions and No use of accessory muscles AUSCULTATION: wheezes Cardio: COMMON NORMALS: regular rate, regular rhythm and No murmurs present (Cardio) RATE: regular rate RHYTHM: regular rhythm GI: COMMON NORMALS: Normal to inspection, nondistended, normoactive bowel sounds present, Soft to palpation, non-tender and no masses PALPATION: Yes Soft to palpation Extremity: COMMON NORMALS: normal to inspection and full ROM NARRATIVE EXTREMITY EXAM: Cellulitis to bilateral lower legs Neuro: COMMON NORMALS: moves all extremities and no focal motor deficits; negative for patient oriented x3 Psych: COMMON NORMALS: mental status grossly normal, Normal thought process present and cooperative THOUGHT PROCESS: Normal thought process present Skin: COMMON NORMALS: no rashes or lesions noted and no wounds GENERAL SKIN EXAM: no rashes or lesions noted Course Vital Signs: Vital signs: Vital Signs Temperature 98.2 F 05/08/20 08:25 Pulse Rate 112 H 05/08/20 09:50 Respiratory Rate 23 H 05/08/20 10:16 Blood Pressure 89/69 05/08/20 10:16 Pulse Oximetry 93 05/08/20 09:44 MDM - Altered Mental Status MDM Narrative: Medical decision making narrative: Patient presents here with acute kidney injury. Patient had a period of being altered. She is now awake and alert able answer all my questions. Patient CT here is normal. She does have an elevated white count has chronic cellulitis. Patient given IV antibiotics. Patient was hypotensive initially blood pressures improved after fluids. I spoke to Dr. awan and will admit the ICU. Lab Data: Labs: Lab Results 05/08/20 05/08/20 05/08/20 Range/Units 08:42 08:42 08:42 WBC 16.0 H (4.0-10.0) 10^3/ uL RBC 2.94 L (4.1-5.3) 10^6/u L Hgb 8.6 L (11.5-15.3) g/dL Hct 26.7 L (37.0-47.0) % MCV 90.8 (81-99) fL MCH 29.3 (28.0-34.0) pg MCHC 32.2 (30.0-36.0) g/dL RDW 17.1 H (12.1-15.1) % Plt Count 395 (130-400) 10^3/c mm MPV 9.0 (7.4-10.4) fL Neut % (Auto) 76.8 % Lymph % (Auto) 12.8 % [place] % (Auto) 6.8 % Eos % (Auto) 2.8 % Baso % (Auto) 0.3 % Neut # (Auto) 12.31 H (1.8-7.7) 10^3/u L Lymph # (Auto) 2.1 (0.8-4.8) 10^3/u L [place] # (Auto) 1.1 H (0.2-0.9) 10^3/u L Eos # (Auto) 0.5 (0.0-0.8) 10^3/u L Baso # (Auto) 0.1 (0.0-0.1) 10^3/u L Nucleated RBC % (a uto) 0 % Nucleated RBCs # 0.0 /100WBC PT 15.70 H (12.1-14.9) SECO NDS INR 1.21 H (0.8-1.2) Specimen Type Sample Site ABG pH (7.35-7.45) ABG pCO2 (35-45) mmHg ABG pO2 (80.0-100.0) mmH g ABG HCO3 (22-26) mmol/L ABG Base Excess (-2.0-2.0) mmol/ L Ash Test Hematocrit (37-47) % Hgb O2 Saturation (95-100) % Carboxyhemoglobin (0.4-20.1) %THgb Methemoglobin (0.4-1.5) % Total Hemoglobin (12-16) g/dL O2 Delivery Device O2 Liters/Min % Technical Operator ID Sodium 142 (136-145) mmol/L Potassium 3.5 (3.5-5.1) mmol/L Chloride 107 (98-107) mmol/L Carbon Dioxide 21 L (22-29) mmol/L Anion Gap 17.5 (5-19) BUN 31 H (8-23) mg/dL Creatinine 5.7 H* (0.5-0.9) mg/dL GFR Calculation Not Reportable Glucose 97 (65-115) mg/dL Calculated Osmolal ity 291 (285-295) mOsm/k g Lactic Acid (0.5-2.2) mmol/L Calcium 7.5 L (8.5-10.5) mg/dL Total Bilirubin 0.4 (0.15-1.2) mg/dL AST 26 (0-32) U/L ALT 16 (0-33) U/L Alkaline Phosphata se 152 H (35-105) IU/L NT-Pro-B Natriuret Pep 07689 H (0-125) pg/mL Total Protein 5.7 L (6.6-8.7) g/dL Albumin 2.2 L (3.5-5.2) g/dL Globulin 3.5 (1.3-4.6) g/dL Urine Color (Yellow) Urine Appearance (CLEAR) Urine pH (5-7) Ur Specific Gravit y (1.005-1.030) Urine Protein (Negative) Urine Glucose (UA) (Normal) Urine Ketones (Negative) Urine Blood (Negative) Urine Nitrate (Negative) Urine Bilirubin (NEGATIVE) Urine Urobilinogen (Negative) mg/dL Ur Leukocyte Ruma ase (Negative) 05/08/20 05/08/20 05/08/20 Range/Units 08:42 09:25 10:15 WBC (4.0-10.0) 10^3/ uL RBC (4.1-5.3) 10^6/u L Hgb (11.5-15.3) g/dL Hct (37.0-47.0) % MCV (81-99) fL MCH (28.0-34.0) pg MCHC (30.0-36.0) g/dL RDW (12.1-15.1) % Plt Count (130-400) 10^3/c mm MPV (7.4-10.4) fL Neut % (Auto) % Lymph % (Auto) % [place] % (Auto) % Eos % (Auto) % Baso % (Auto) % Neut # (Auto) (1.8-7.7) 10^3/u L Lymph # (Auto) (0.8-4.8) 10^3/u L [place] # (Auto) (0.2-0.9) 10^3/u L Eos # (Auto) (0.0-0.8) 10^3/u L Baso # (Auto) (0.0-0.1) 10^3/u L Nucleated RBC % (a uto) % Nucleated RBCs # /100WBC PT (12.1-14.9) SECO NDS INR (0.8-1.2) Specimen Type Arterial Sample Site Brachial, left ABG pH 7.38 (7.35-7.45) ABG pCO2 32.6 L (35-45) mmHg ABG pO2 118.0 H (80.0-100.0) mmH g ABG HCO3 19.5 L (22-26) mmol/L ABG Base Excess -5.0 L (-2.0-2.0) mmol/ L Ash Test Pos Hematocrit 26.2 L (37-47) % Hgb O2 Saturation 96.2 (95-100) % Carboxyhemoglobin 0.1 L (0.4-20.1) %THgb Methemoglobin 1.2 (0.4-1.5) % Total Hemoglobin 8.5 L (12-16) g/dL O2 Delivery Device Nc O2 Liters/Min 2.5 % Technical Operator ID [place] Sodium (136-145) mmol/L Potassium (3.5-5.1) mmol/L Chloride (98-107) mmol/L Carbon Dioxide (22-29) mmol/L Anion Gap (5-19) BUN (8-23) mg/dL Creatinine (0.5-0.9) mg/dL GFR Calculation Glucose (65-115) mg/dL Calculated Osmolal ity (285-295) mOsm/k g Lactic Acid 1.4 (0.5-2.2) mmol/L Calcium (8.5-10.5) mg/dL Total Bilirubin (0.15-1.2) mg/dL AST (0-32) U/L ALT (0-33) U/L Alkaline Phosphata se (35-105) IU/L NT-Pro-B Natriuret Pep (0-125) pg/mL Total Protein (6.6-8.7) g/dL Albumin (3.5-5.2) g/dL Globulin (1.3-4.6) g/dL Urine Color Yellow (Yellow) Urine Appearance Clear (CLEAR) Urine pH 5 (5-7) Ur Specific Gravit y 1.025 (1.005-1.030) Urine Protein Neg (Negative) Urine Glucose (UA) Norm (Normal) Urine Ketones Negative (Negative) Urine Blood Neg (Negative) Urine Nitrate Negative (Negative) Urine Bilirubin 1+ H (NEGATIVE) Urine Urobilinogen Neg (Negative) mg/dL Ur Leukocyte Ruma ase Negative (Negative) Imaging Data^: CXR: Radiologist's impression: [address] [place] [address] XRay Report Signed Patient: Leatha Emery Unit #: [id number] : 1950 Acct#:[id number] Age/Sex: 69 / F ADM Date: 05/08/20 Loc: ER Room/Bed: Attending Dr: Ordering Provider/Ordering MD: Donal Ramirez MD Date of Service: 05/08/20 Procedure(s): XR chest 1V portable [id number] Accession Number(s): [id number] Report Number: [id number] WS: [id number] Portable AP upright chest, 05/08/2020 Clinical Data: sob Comparison: Portable chest, 04/18/2020 Findings: No nodules, masses or effusions are seen. The heart is enlarged. The pulmonary vascularity is not increased. No pneumonia or pneumothorax is seen. The right PICC line barely enters the superior vena cava. The dialysis catheter has been removed. There is a large hiatal hernia. There is a dextroscoliosis of the upper thoracic spine. Monitor leads are on the chest wall. There is a thin metal object overlying the right side of the lower neck which may represent a needle on the patient's skin. XR/XR chest 1V portable [id number] Impression: 1. Negative for acute cardiopulmonary disease. 2. Large hiatal hernia. CT Head: Radiologist's impression: [facility] [address] [id number] Scan Report Signed Patient: Leatha Emery Unit #: [id number] : 1950 Age/Sex: 69 / F ADM Date: 05/08/20 Loc: ER Room/Bed: Attending Dr: Ordering Provider/Ordering MD: Donal Ramirez MD Date of Service: 05/08/20 Procedure(s): CT head wo con* [id number] Accession Number(s): [id number] Report Number: [id number] WS: [id number] CT HEAD TECHNIQUE: Noncontrast CT of the head obtained from the skullbase to the vertex. CLINICAL INFORMATION: ams COMPARISON: 2006 DLP: 924.[address] scans at [facility] use at least one of these dose optimization techniques: automated exposure control; mA and/or kV adjustment per patient size (includes targeted exams where dose is matched to clinical indication); or iterative reconstruction. FINDINGS: Patient is rotated in the scanner which limits examination No evidence of intracranial hemorrhage or mass effect. Ventricular system and basal cisterns are patent. Moderate small vessel changes with moderate parenchymal volume loss. 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 Encephalomalacia right temporal lobe. Paranasal sinuses and mastoid air cells well aerated. No extra-axial fluid collections. No evidence of mass or mass effect. Normal umaña-white differentiation. Paranasal sinuses and mastoid air cells are well aerated. .Normal visualized soft tissues. Attempted Donal Ramirez MD at 05/08/2020 9:[address]/CT head wo con* [id number] IMPRESSION: 1. No evidence of intracranial hemorrhage or mass effect. 2. Moderate small vessel changes with moderate parenchymal volume loss. 3. 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 Encephalomalacia right anterior temporal lobe. 4. No acute intracranial findings. EKG Data^: EKG 1: Attestation: I personally reviewed and interpreted this EKG as follows: EKG interpretation date: 05/08/20 EKG interpretation time: 08:47 Interpretation: afib hr [address] or t wave abnormalities qrs 89 qtc 398 Critical Care Time Critical Care Time: Critical Care Time: Yes Total Critical Care Time: 35 Attestation: This case had a high probability of a clinically significant, sudden, or life threatening deterioration of this patient's condition which required my full and direct attention, intervention and personal management. Discharge Plan Discharge Patient Disposition: Admitted As Inpatient Admit Provider: Chioma Mccauley Clinical Impression: Altered mental status, Acute kidney injury, Cellulitis Condition: Stable Coding Level of Care Code ED Sourcing Intern for g Fwd Exam Comprehensive
[2020-05-08 08:59] LABS: Basophils # 0.1 10^3/uL (0.0-0.1); Basophils % 0.3 %; Eosinophils # 0.5 10^3/uL (0.0-0.8); Eosinophils % 2.8 %; Hematocrit 26.7 % (37.0-47.0); Hemoglobin 8.6 g/dL (11.5-15.3); Lymphocytes # 2.1 10^3/uL (0.8-4.8); Lymphocytes % 12.8 %; Mean Corpuscular HGB Conc 32.2 g/dL (30.0-36.0); Mean Corpuscular Hemoglobin 29.3 pg (28.0-34.0); Mean Corpuscular Volume 90.8 fL (81-99); Monocytes # 1.1 10^3/uL (0.2-0.9); Monocytes % 6.8 %; Neutrophils # 12.31 10^3/uL (1.8-7.7); Neutrophils % 76.8 %; Nucleated Red Blood Cells % 0 %; Platelet Count 395 10^3/cmm (130-400); Red Blood Count 2.94 10^6/uL (4.1-5.3); Red Cell Distribution Width 17.1 % (12.1-15.1)
[2020-05-08] MEDS: sodium chloride 0.9% 500 ML 999 ML IV ×2 (09:03→13:30)
[2020-05-08 09:13] LABS: INR 1.21 (0.8-1.2)
[2020-05-08 09:17] LABS: Lactic Sepsis W/Reflex 1.4 mmol/L (0.5-2.2)
--- NOTE | 2020-05-08 09:20 | PC.NURSE ---
pt to CT by stretcher with tech
[2020-05-08 09:27] LABS: Alanine Aminotransferase 16 U/L (0-33); Albumin Level 2.2 g/dL (3.5-5.2); Alkaline Phosphatase 152 IU/L (35-105); Anion Gap 17.5 (5-19); Aspartate Amino Transferase 26 U/L (0-32); Blood Urea Nitrogen 31 mg/dL (8-23); Calcium 7.5 mg/dL (8.5-10.5); Carbon Dioxide 21 mmol/L (22-29); Chloride 107 mmol/L (98-107); Globulin 3.5 g/dL (1.3-4.6); Glucose 97 mg/dL (65-115); Osmolality Calculated 291 mOsm/kg (285-295); Potassium 3.5 mmol/L (3.5-5.1); Sodium 142 mmol/L (136-145); Total Bilirubin 0.4 mg/dL (0.15-1.2); Total Protein 5.7 g/dL (6.6-8.7)
[2020-05-08] MEDS: piperacillin-tazobactam 3.375 GM in sodium chloride 0.9% (plus) 50 ML IV ×2 (09:35→21:33)
[2020-05-08 09:39] LABS: ABG PCO2 32.6 mmHg (35-45); ABG PH Result 7.38 (7.35-7.45); Arterial Blood Gas Hematocrit 26.2 % (37-47); Blood Gas Allen Test Pos; Blood Gas LPM 2.5 %; Blood Gas Operator Identificat MONRO; Blood Gas Sample Site Brachial, left; Blood Gas Sample Type Arterial; Carboxyhemoglobin 0.1 %THgb (0.4-20.1); HCO3 ABG 19.5 mmol/L (22-26); HGB O2 Sat 96.2 % (95-100); Methemoglobin 1.2 % (0.4-1.5); Oxygen Device NC; Total Hemoglobin 8.5 g/dL (12-16)
[2020-05-08] MEDS: ipratropium-albuterol 3 mL Neb INHALATION (09:42)
[2020-05-08] MEDS: vancomycin 1,000 MG in sodium chloride 0.9% 250 ML 250 MG IV (09:56)
[2020-05-08 10:32] LABS: Add Urine Microscopic? NO
[2020-05-08 10:35] LABS: Bilirubin Urine 1+ (NEGATIVE); Blood Urine Neg (Negative); Glucose Urine UA Norm (Normal); Ketones Urine Negative (Negative); Leukocyte Esterase Urine Negative (Negative); Nitrate Urine Negative (Negative); Protein Urine Neg (Negative); Specific Gravity, Urine 1.025 (1.005-1.030); Urine Appearance Clear (CLEAR); Urine Color Yellow (Yellow); Urobilinogen Urine Neg (Negative); pH Urine 5 (5-7)
--- NOTE | 2020-05-08 11:15 | PC.RESP ---
Pulmonary Rehab information sent to patient.
--- NOTE | 2020-05-08 12:04 | USR_ITS ---
PROCEDURE INFORMATION: Exam: US Duplex Left Lower Extremity Arteries Or Arterial Bypass Grafts Exam date and time: 05/08/2020 12:08 PM Age: 69 years old Clinical indication: Chronic problems with non healing ulcers. TECHNIQUE: Imaging protocol: Left Real-time duplex scan of the arteries or arterial bypass grafts of the left lower extremity with 2-D umaña scale, color Doppler flow and spectral waveform analysis. Images documented and saved. COMPARISON: No relevant prior studies available. Technologist note indicated the patient had a prior study in January 2020, but that is not available for comparison. FINDINGS: Limitations: The technologist indicated that the study was technically limited due to the patient's discomfort. Left iliac arteries: PSV = 105 cm/s. No occlusion or significant stenosis demonstrated. Normal waveform. Left common femoral artery: PSV = 88 cm/s. No occlusion or significant stenosis demonstrated. Normal waveform. Left superficial femoral artery: PSV = 113 cm/s. No occlusion or significant stenosis demonstrated. Normal waveform. Left popliteal artery: PSV = 79 cm/s. No occlusion or significant stenosis demonstrated. Normal waveform. Left calf/foot arteries: No flow demonstrated in the posterior tibial artery. Dorsalis pedis artery is patent. US/[place] [id number] IMPRESSION: 1. No sign of iliac, femoral or popliteal significant stenosis or occlusion. 2. 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
--- NOTE | 2020-05-08 12:27 | PC.NURSE ---
received pt from ER via stretcher, transferred via lift sheet, AO to name and being in hospital, shallow RR 2L NC, clear bialteral, tachy HR low 100's noted, Foly inserted via V.O. from dr. Mccauley, urine clear dark yellow, LLE dusky cap refill sluggish, moderate amount purlent drainage to LLE drainage, dressing to RLE dry
--- NOTE | 2020-05-08 12:55 | PM.CONSULT ---
Providers/Reason For Consult Consulting Physican/Specialty*: Nephrology Reason for Consult*: Acute renal failure Attending Physician: Chioma Mccauley DO History of Present Illness History of Present Illness Thank you for consultation. Today I reviewed this 69-year-old female at the request of Dr. Mccauley for evaluation of acute on chronic kidney disease. She was recently admitted to our facility with multisystem organ failure in the setting of sepsis secondary to urosepsis. At that time she did receive dialysis just once after which she made a recovery of renal function. She was subsequently discharged on ertapenem. Per reports she did follow with wound care as an outpatient, where she was recently started on another antibiotic for lower extremity cellulitis, which we are now tracking down. Of note she is slightly confused, [facility] the call to EMT. On interview she is not forthcoming with information but she is conversant. Her blood pressure has been low since admission with MA P of 50mmHg and she is tachycardic. During her last hospital stay her serum creatinine peaked at 5.4 on 04/15/2020 after which it made progressive improvement, all the way down to 0.9 at the time of discharge. She is now readmitted with a creatinine of 5.7. Other basic chemistries are relatively stable, with a bicarb done at 21 and a normal potassium. She has mild global edema, chest x-ray does not demonstrate any pulmonary edema, she is breathing comfortably on room air at rest. Apart from the antibiotics, is not clear that she has been exposed to any new recent nephrotoxic agents. She is on Lisinopril. Patino catheter has been placed and there is 50 mL of paris-colored urine in the Patino catheter bag. This is over the course of 1-2 hours. Review of Systems General: Reports: ROS unobtainable due to medical condition and ROS unobtainable due to mental status Meds/Allergies Home Medications and Allergies Home Medications Medication Instructions Recorded Confirmed Last Taken Type Breo Ellipta 1 inh INHALATION DAILY 01/30/20 05/08/20 05/07/20 History Farxiga 5 mg PO DAILY 01/30/20 05/08/20 05/07/20 History Toviaz 4 mg PO DAILY 01/30/20 05/08/20 05/07/20 History Tradjenta 5 mg PO DAILY 01/30/20 05/08/20 05/07/20 History acetaminophen 650 mg PO QID PRN 01/30/20 05/08/20 01/29/20 History amlodipine 5 mg PO DAILY 01/30/20 05/08/20 05/07/20 History aripiprazole 5 mg PO BID 01/30/20 05/08/20 05/07/20 History bisacodyl 10 mg WI DAILY PRN 01/30/20 05/08/20 01/30/20 History calcium carbonate 500 mg PO DAILY 01/30/20 05/08/20 05/07/20 History fluticasone propionate 2 spray INTRANASAL DAILY 01/30/20 05/08/20 05/07/20 History furosemide [Lasix] 40 mg PO DAILY 01/30/20 05/08/20 05/07/20 History levothyroxine 125 mcg PO DAILY 01/30/20 05/08/20 05/07/20 History lisinopril 10 mg PO DAILY 01/30/20 05/08/20 05/07/20 History magnesium hydroxide [Milk of 30 ml PO DAILY PRN 01/30/20 05/08/20 01/29/20 History Magnesia] melatonin 5 mg PO DAILY 01/30/20 05/08/20 05/07/20 History mirtazapine 45 mg PO DAILY 01/30/20 05/08/20 05/07/20 History multivitamin 1 tab PO DAILY 01/30/20 05/08/20 05/07/20 History nystatin 1 applic TOPICAL BID 01/30/20 05/08/20 05/07/20 History oxycodone-acetaminophen 1 tab PO DAILY 01/30/20 05/08/20 05/07/20 History oxycodone-acetaminophen 1 tab PO Q4H PRN 01/30/20 05/08/20 05/07/20 History pantoprazole 40 mg PO DAILY 01/30/20 05/08/20 05/07/20 History polyethylene glycol 3350 [Miralax] 17 g PO DAILY PRN 01/30/20 05/08/20 01/30/20 History senna 8.6 mg PO BID 01/30/20 05/08/20 05/07/20 History simvastatin 20 mg PO DAILY 01/30/20 05/08/20 05/07/20 History trazodone 200 mg PO BEDTIME 01/30/20 05/08/20 05/07/20 History venlafaxine 150 mg PO DAILY 01/30/20 05/08/20 05/07/20 History Pro-Stat AWC 1 ea PO DAILY 04/15/20 05/08/20 05/07/20 History metoprolol tartrate 75 mg PO BID 30 Days #90 tab 04/22/20 05/08/20 05/07/20 Rx olanzapine 5 mg PO DAILY 30 Days #30 tab 04/22/20 05/08/20 05/07/20 Rx collagenase clostridium histo. 1 applic TOPICAL DAILY 05/08/20 05/08/20 05/07/20 History [Santyl] cyclobenzaprine 5 mg PO Q8H PRN 05/08/20 05/08/20 Unknown History hydroxyzine HCl 50 mg PO QID PRN 05/08/20 05/08/20 Unknown History lactulose 30 ml PO DAILY PRN 05/08/20 05/08/20 Unknown History lidocaine HCl 1 applic TOPICAL DAILY PRN 05/08/20 05/08/20 Unknown History lidocaine HCl [Lidocaine Viscous] 1 applic MUCOUS MEMBRANE QID PRN 05/08/20 05/08/20 Unknown History menthol [Biofreeze (menthol)] 1 applic TOPICAL BID PRN 05/08/20 05/08/20 Unknown History ondansetron HCl [Zofran] 4 mg PO Q6H PRN 05/08/20 05/08/20 Unknown History vejcpbacp-skbgwuvh-rdbga-w.pet 1 applic WI BID PRN 05/08/20 05/08/20 Unknown History [Hemorrhoidal Cream] sodium phosphates [Enema] 118 ml WI DAILY PRN 05/08/20 05/08/20 Unknown History tramadol 50 mg PO Q8H PRN 05/08/20 05/08/20 Unknown History Allergies Allergy/AdvReac Type Severity Reaction Status Date / Time clarithromycin Allergy Unknown Unknown Verified 04/16/20 14:33 hydrocodone Allergy Unknown Unknown Verified 04/16/20 14:33 metformin Allergy Unknown Unknown Verified 04/16/20 14:33 sitagliptin [From Januvia] Allergy Unknown Unknown Verified 04/16/20 14:33 tetanus and diphtheria Allergy Unknown Unknown Verified 04/16/20 14:33 toxoids triamcinolone Allergy Unknown Unknown Verified 04/16/20 14:33 PFSH Acute PFSH: Medical History (Updated 05/08/20 @ 10:57 by Donal Ramirez MD) Chronic kidney disease, stage 3 COPD (chronic obstructive pulmonary disease) Diabetic nephropathy Hypertension Hypothyroidism Leg ulcer, left PVD (peripheral vascular disease) Sleep apnea Type 2 diabetes mellitus Vascular dementia Surgical History History of bilateral knee arthroplasty S/P breast lumpectomy Family History Father Diabetes Hypertension Mother CAD (coronary artery disease) Hypertension Social History Smoking and tobacco status: never smoked Alcohol intake: never Household members: other Housing: [facility] Current gender identity: Female Additional social history: -lives at [facility] – [place], [place] Vitals/I&O/Wt Last Vital Signs Temp 98.2 F 05/08/20 08:25 Pulse 110 H 05/08/20 11:09 Resp 24 H 05/08/20 11:09 BP 97/62 05/08/20 11:09 Pulse Ox 98 05/08/20 11:09 05/07/20 05/08/20 05/08/20 22:59 06:59 14:59 Intake Total 550 / 550 Balance 550 / 550 Weight last 48 hrs Weight 105.687 kg Physical Exam Narrative: EXAM NARRATIVE: Constitutional: Awake, comfortable, yelling when moved HEENT: Wet mucosa, no jvp, non icteric Lungs: Bilaterally diminished but clear without discernible wheeze or rales in all lung zones CVS: S1 S2, no murmurs Abdo: Soft, BS ok Ext 4: Minimal edema, peripheral perfusion with no cyanosis. LE extremity with cellulitic changes Neurological: Grossly non-focal Patient seen and examined via telemedicine, with the assistance of the bedside RN Data Micro: Micro: Microbiology 05/08/20 08:50 Blood Culture - Pr eliminary Blood SPECIMEN [facility] 05/08/20 08:42 Blood Culture - Pr eliminary Blood SPECIMEN [facility] A&P Additional A&P Information 1. Acute renal failure. Given the severe hypotension that she is presenting with, and likely severe hypotension in the nursing facility prompting her loss of consciousness, renal hypoperfusion with the possible resultant ischemic acute tubular necrosis is the likely cause of renal failure. Hopefully there is an element of prerenal azotemia. Acute interstitial nephritis/tubular injury from recent antibiotics exposure is also possible, we are tracking down the outpatient antibiotics that she received. She received 1.5 L in the emergency room, she has not received another 500 mL fluid bolus. She has a PICC line. Intravenous Levophed is prescribed to maintain MEP greater than 65 She has had numerous imaging studies of the last 2 admissions, historically no anatomical issues with the kidneys. No reason to image on this occasion as well. We will send urine microscopy, fractional excretion of sodium, urine eosinophils, CPK, TSH, uric acid Dose medications for GFR less than 15 Avoid usual nephrotoxic agents Strict ins and outs 2. Chemistry Mild aberration in acid-base, no need for alkalinization otherwise chemistries look well balanced. We will continue to monitor them closely 3. Lower extremity cellulitis. Vascular studies currently ongoing, results pending Will need broad-spectrum antibiotic coverage, defer to Dr. Mccauley, has so far received vancomycin and Zosyn. Cultures sent and pending 4. Anemia. Hemoglobin 8.6. Will monitor closely and if it drops much more is we will send off iron studies and consider EPO dosing Albert Osborne MD Nephrology [phone] Patient seen and examined via telemedicine, with the assistance of the bedside RN Consult Attestations Medical Necessity Statement: Eval for PERRY Coding Level of Care Code Acute Title I Paraprofessional for Darek Ojeda
--- NOTE | 2020-05-08 13:14 | P.HP_ITS ---
Providers/Chief Complaint Admitting Physician: Chioma Mccauley DO Chief Complaint: ALOC/ LOW O2 History of Present Illness Leatha Emery is a 69 year old female with a past medical history of peripheral vascular disease, chronic ulcerations of the left lower extremity, history of ESBL E. coli UTI, chronic kidney disease, COPD, hypertension, morbid obesity and history of atrial fibrillation that presented to the emergency department today for altered mental status. It was reported that patient had a syncopal event and was noted to be hypotensive therefore brought to the ER for further evaluation and treatment. Patient was seen and evaluated in the emergency department her mentation returned to her baseline but she was noted to have sepsis with concern for septic shock. 1 L bolus was given in route by EMS, 500 mL were given in the ED, patient was noted to have acute kidney injury on evaluation of labs and patient was admitted to the ICU. Upon arrival to the ICU patient was seen and evaluated and lower extremity dres sings were removed. Patient denied any chest pain, no shortness of breath, no abdominal pain or nausea. Patient reported that she did not want to be admitted to the hospital and wanted to go back to the residential. She stated that the residential told her she was just coming in for a checkup, did not wish to be admitted. Discussed with patient the concern for acute kidney injury and she agreed to stay at this time. She reported to call her son for any medical decision making, Hugo. Patient denies any abdominal pain or nausea, reporting some chronic pain in the lower extremities bilaterally, unchanged. She denies any headache or vision changes.Patient was noted to have diminished peripheral pulses in the left lower extremity with discoloration and large amount of drainage from lower extremity ulcers. Cardiology was consulted due to concern for severe peripheral vascular disease with these acute changes. Nephrology was consulted due to concern for acute renal failure. Review of Systems Const: Denies: fever(s) or chills Eyes: Denies: change in vision ENMT: Denies: nasal congestion Card: Reports: edema; Denies: chest pain or palpitations Resp: Denies: dyspnea, productive cough or hemoptysis GI: Denies: abdominal pain, nausea, vomiting, diarrhea, constipation, hemato chezia or melena : Denies: dysuria or hematuria Musc: Reports: extremity pain; Denies: muscle cramps Skin/Breast: Reports: other (Chronic ulceration and wounds in the left lower extremity and right lower extremity); Denies: rash or new lesions Neuro: Denies: headache(s) or dizziness Psych: Denies: anxiety or depression Endo: Denies: polyuria or hot flashes Vitor/Lymph: Denies: easy bruising or easy bleeding Medications/Allergies Home Medications Medication Instructions Recorded Confirmed Last Taken Type Breo Ellipta 1 inh INHALATION DAILY 01/30/20 05/08/20 05/07/20 History Farxiga 5 mg PO DAILY 01/30/20 05/08/20 05/07/20 History Toviaz 4 mg PO DAILY 01/30/20 05/08/20 05/07/20 History Tradjenta 5 mg PO DAILY 01/30/20 05/08/20 05/07/20 History acetaminophen 650 mg PO QID PRN 01/30/20 05/08/20 01/29/20 History amlodipine 5 mg PO DAILY 01/30/20 05/08/20 05/07/20 History aripiprazole 5 mg PO BID 01/30/20 05/08/20 05/07/20 History bisacodyl 10 mg ID DAILY PRN 01/30/20 05/08/20 01/30/20 History calcium carbonate 500 mg PO DAILY 01/30/20 05/08/20 05/07/20 History fluticasone propionate 2 spray INTRANASAL DAILY 01/30/20 05/08/20 05/07/20 History furosemide [Lasix] 40 mg PO DAILY 01/30/20 05/08/20 05/07/20 History levothyroxine 125 mcg PO DAILY 01/30/20 05/08/20 05/07/20 History lisinopril 10 mg PO DAILY 01/30/20 05/08/20 05/07/20 History magnesium hydroxide [Milk of 30 ml PO DAILY PRN 01/30/20 05/08/20 01/29/20 History Magnesia] melatonin 5 mg PO DAILY 01/30/20 05/08/20 05/07/20 History mirtazapine 45 mg PO DAILY 01/30/20 05/08/20 05/07/20 History multivitamin 1 tab PO DAILY 01/30/20 05/08/20 05/07/20 History nystatin 1 applic TOPICAL BID 01/30/20 05/08/20 05/07/20 History oxycodone-acetaminophen 1 tab PO DAILY 01/30/20 05/08/20 05/07/20 History oxycodone-acetaminophen 1 tab PO Q4H PRN 01/30/20 05/08/20 05/07/20 History pantoprazole 40 mg PO DAILY 01/30/20 05/08/20 05/07/20 History polyethylene glycol 3350 [Miralax] 17 g PO DAILY PRN 01/30/20 05/08/20 01/30/20 History senna 8.6 mg PO BID 01/30/20 05/08/20 05/07/20 History simvastatin 20 mg PO DAILY 01/30/20 05/08/20 05/07/20 History trazodone 200 mg PO BEDTIME 01/30/20 05/08/20 05/07/20 History venlafaxine 150 mg PO DAILY 01/30/20 05/08/20 05/07/20 History Pro-Stat AWC 1 ea PO DAILY 04/15/20 05/08/20 05/07/20 History metoprolol tartrate 75 mg PO BID 30 Days #90 tab 04/22/20 05/08/20 05/07/20 Rx olanzapine 5 mg PO DAILY 30 Days #30 tab 04/22/20 05/08/20 05/07/20 Rx collagenase clostridium histo. 1 applic TOPICAL DAILY 05/08/20 05/08/20 05/07/20 History [Santyl] cyclobenzaprine 5 mg PO Q8H PRN 05/08/20 05/08/20 Unknown History hydroxyzine HCl 50 mg PO QID PRN 05/08/20 05/08/20 Unknown History lactulose 30 ml PO DAILY PRN 05/08/20 05/08/20 Unknown History lidocaine HCl 1 applic TOPICAL DAILY PRN 05/08/20 05/08/20 Unknown History lidocaine HCl [Lidocaine Viscous] 1 applic MUCOUS MEMBRANE QID PRN 05/08/20 05/08/20 Unknown History menthol [Biofreeze (menthol)] 1 applic TOPICAL BID PRN 05/08/20 05/08/20 Unknown History ondansetron HCl [Zofran] 4 mg PO Q6H PRN 05/08/20 05/08/20 Unknown History suqmnrnpr-wjxvcyhs-qzowa-w.pet 1 applic ID BID PRN 05/08/20 05/08/20 Unknown History [Hemorrhoidal Cream] sodium phosphates [Enema] 118 ml ID DAILY PRN 05/08/20 05/08/20 Unknown History tramadol 50 mg PO Q8H PRN 05/08/20 05/08/20 Unknown History Allergies Allergy/AdvReac Type Severity Reaction Status Date / Time clarithromycin Allergy Unknown Unknown Verified 04/16/20 14:33 hydrocodone Allergy Unknown Unknown Verified 04/16/20 14:33 metformin Allergy Unknown Unknown Verified 04/16/20 14:33 sitagliptin [From Januvia] Allergy Unknown Unknown Verified 04/16/20 14:33 tetanus and diphtheria Allergy Unknown Unknown Verified 04/16/20 14:33 toxoids triamcinolone Allergy Unknown Unknown Verified 04/16/20 14:33 PFSH Acute PFSH: Medical History Chronic kidney disease, stage 3 COPD (chronic obstructive pulmonary disease) Diabetic nephropathy Hypertension Hypothyroidism Leg ulcer, left PVD (peripheral vascular disease) Sleep apnea Type 2 diabetes mellitus Vascular dementia Surgical History History of bilateral knee arthroplasty S/P breast lumpectomy Family History Father Diabetes Hypertension Mother CAD (coronary artery disease) Hypertension Social History Smoking and tobacco status: never smoked Alcohol intake: never Household members: other Housing: Prison Current gender identity: Female Additional social history: [place] [facility] [place]/I&O/Wt Last Vital Signs Temp 98.2 F 05/08/20 08:25 Pulse 117 H 05/08/20 13:02 Resp 16 05/08/20 13:02 BP 97/62 05/08/20 11:09 Pulse Ox 98 05/08/20 13:02 05/07/20 05/08/20 05/08/20 22:59 06:59 14:59 Intake Total 550 / 550 Balance 550 / 550 Weight last 48 hrs Weight 105.687 kg Physical Exam Const: COMMON NORMALS: patient oriented x3 and alert GENERAL APPEARANCE: cooperative ORIENTATION/CONSCIOUSNESS: Yes awake, Yes oriented to person, Yes oriented to place and Yes oriented to time HENMT: COMMON NORMALS: normocephalic and atraumatic HEAD & SCALP: normocephalic and atraumatic Eye: COMMON NORMALS: Equal, round and reactive pupils present PUPIL: Yes Equal, round and reactive pupils present Neck/C-Spine: COMMON NORMALS: supple GENERAL: Yes normal visual inspection Resp: COMMON NORMALS: normal respiratory effort and clear to auscultation bilaterally EFFORT & INSPECTION: Yes able to speak in complete sentences AUSCULTATION: clear to auscultation bilaterally, no rhonchi and no wheezes Cardio: COMMON NORMALS: regular rhythm and No murmurs present (Cardio) RATE: tachycardic RHYTHM: regular rhythm OTHER: Unable to palpate pulses in the left lower extremity GI: COMMON NORMALS: Soft to palpation and non-tender INSPECTION: No abdominal distension AUSCULTATION: Yes normoactive bowel sounds PALPATION: Yes Soft to palpation : COMMON NORMALS: Yes no CVA tenderness BLADDER/KIDNEY EXAM: Yes no CVA tenderness Back/Pelvis: COMMON NORMALS: no CVA tenderness Extremity: NARRATIVE EXTREMITY EXAM: Left lower extremity was ulcerations with surrounding erythema and drainage, patient has circumferential ulcerations and ulceration over the ventral portion of the foot, with discoloration to the distal LE on the L from the knee down Neuro: COMMON NORMALS: patient oriented x3, CN's II-XII intact bilaterally, moves all extremities and no focal motor deficits SENSORIUM/ORIENTATION: Yes alert, Yes oriented to person, Yes oriented to place and Yes oriented to time SPEECH: speech normal Psych: COMMON NORMALS: mental status grossly normal and cooperative Skin: OTHER: ulcerations in the the LE on the L circumferentially with purulent drainage Data : 05/08/20 08:42 05/08/20 08:42 Micro: Microbiology 05/08/20 08:50 Blood Culture - Preliminary Blood SPECIMEN COLLECTED 05/08/20 08:42 Blood Culture - Preliminary Blood SPECIMEN COLLECTED CXR: I personally reviewed and interpreted this imaging study as follows: Radiologist's impression: Findings: No nodules, masses or effusions are seen. The heart is enlarged. The pulmonary vascularity is not increased. No pneumonia or pneumothorax is seen. The right PICC line barely enters the superior vena cava. The dialysis catheter has been removed. There is a large hiatal hernia. There is a dextroscoliosis of the upper thoracic spine. Monitor leads are on the chest wall. There is a thin metal object overlying the right side of the lower neck which may represent a needle on the patient's skin. XR/XR chest 1V portable [id number] Impression: 1. Negative for acute cardiopulmonary disease. 2. Large hiatal hernia. CT Head: I personally reviewed and interpreted this imaging study as follows: Radiologist's impression: IMPRESSION: 1. No evidence of intracranial hemorrhage or mass effect. 2. Moderate small vessel changes with moderate parenchymal volume loss. 3. 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 Encephalomalacia right anterior temporal lobe. 4. No acute intracranial findings A&P Assessment and plan (1) Acute kidney injury: Believed to be multifactorial Recent antibiotic usage, ertapenem that was given for treatment of ESBL E. coli UTI. Patient also presents with sepsis and septic shock requiring levophed. Lactic acid within normal limits. Continue to hold nephrotoxic agents, holding home HONORIO inhibitor. Previous hospitalization patient had acute on chronic kidney injury requiring dialysis, then improved and was [facility] to detention facility. Order for Patino catheter for strict intake and output Appears to be intravascularly depleted an additional 500 mL normal saline bolus was ordered. Very cautious with IV fluids as do not wish to fluid overload patient We will check magnesium and phosphorus Status: Acute (2) Cellulitis: Left lower extremity cellulitis with concern for left lower extremity isc hemia Consulted Dr. Alejandre for further evaluation and recommendations Patient followed by wound care, discussed with patient's son and he is concerned about her wound care that she is receiving at the residential. Would like to discuss with case management further for potential moving of care facilities Continue on broad-spectrum antibiotics due to concern for sepsis with septic shock. Zosyn and Linezolid Blood cultures ordered and pending We will monitor closely in the ICU due to concern for sepsis with septic shock Status: Acute (3) Peripheral vascular disease: Stat LE arterial ultrasound ordered Consult to cardiology, Dr. Alejandre Status: Acute (4) Bilateral leg ulcer: Followed by wound care, continue with wound care management with further plan as above Status: Acute (5) Acute on chronic anemia: No evidence of any active bleeding at this time, will continue to monitor hemoglobin closely, iron studies ordered and pending Status: Acute (6) Acute metabolic encephalopathy: With a loss of consciousness at the detention facility Patient appears to be at baseline at this time Remains hypotensive will continue monitoring closely in the ICU CT scan of the head performed in the ED and as noted above Continue with neurologic checks every 4 hours Status: Acute (7) Sepsis: With septic shock secondary to left lower extremity cellulitis Continue on broad-spectrum antibiotics with Zyvox and Zosyn Patient given 1500 mL of normal saline in the ED, given an additional 500 mL fluid bolus. Cautious with IV fluids therefore no further fluids at this time will transition to Levophed to maintain map greater than 65 Status: Resolved Qualifiers: Acute respiratory failure type: unspecified Sepsis acute organ dy sfunction status: with acute organ dysfunction Sepsis type: sepsis due to unspecified organism Severe sepsis acute organ dysfunction type: acute respiratory failure Severe sepsis shock status: with septic shock Qualified Code(s): A41.9 - Sepsis, unspecified organism; R65.21 - Severe sepsis with septic shock; J96.00 - Acute respiratory failure, unspecified whether with hypoxia or hypercapnia (8) COPD (chronic obstructive pulmonary disease): Not on home oxygen, without acute exacerbation Status: Acute Qualifiers: COPD type: emphysema Emphysema type: unspecified Qualified Code(s): J43.9 - Emphysema, unspecified Additional A&P Information Recent treatment for ESBL E. coli UTI Recent hospitalization for acute respiratory failure requiring intubation mechanical ventilation, extubated on 04/17/2020 Dementia: Patient is on multiple medications including mirtazapine, Abilify, Zyprexa, will continue to monitor her mental status closely with serial neurologic checks. Due to her syncopal episode at the detention facility and concern for altered mental status will be cautious with the sedating medications. Hypertension: Hold HONORIO inhibitor and diuretics due to concern for hypotension and acute kidney injury Hypothyroidism: Continue home levothyroxine 125 mcg daily, TSH within normal limits Morbid obesity: BMI of 41 Large hiatal hernia GERD: Continue PPI Chronic pain on daily opioids Hyperlipidemia Currently has a PICC line in place that was placed on 04/19/2020 DVT prophylaxis: Heparin, continue to monitor hemoglobin closely Diet: Cardiac CODE STATUS: Full code, this was discussed with patient's son Hugo Attestations Medical Necessity Statement*: Patient requires ICU care and hospitalization due to sepsis with septic shock with concern for lower extremity cellulitis and peripheral vascular disease along with acute kidney injury. Expected stay greater than 2 midnights Coding Level of Care Code Acute Hearing Care Practitioner for g Fwd Exam Comprehensive Diagnoses Acute kidney injury N17.9 Cellulitis L03.90 Peripheral vascular disease I73.9 Bilateral leg ulcer L97.919; L97.929 Acute on chronic anemia D64.9 Acute metabolic encephalopathy G93.41 Sepsis A41.9; R65.21; J96.00 Acute respiratory failure type: unspecified Sepsis acute organ dysfunction status: with acute organ dysfunction Sepsis type: sepsis due to unspecified organism Severe sepsis acute organ dysfunction type: acute respiratory failure Severe sepsis shock status: with septic shock COPD (chronic obstructive pulmonary disease) J43.9 COPD type: emphysema Emphysema type: unspecified
[2020-05-08 13:21] LABS: Creatine Phosphokinase 212 U/L (26-192); Thyroid Stimulating Hormone 3.92 uIU/mL (0.27-4.20); Uric Acid 10.4 mg/dL (2.4-5.7)
[2020-05-08 14:28] LABS: Eosinophil Urine No Eosinophils Seen; Urine Eosinophil Count 0 (0-0)
[2020-05-08 14:37] LABS: Urine Creatinine 191 mg/dL (28-217); Urine Random Sodium 49 mmol/L
[2020-05-08] MEDS: heparin 5,000 unit/mL INJ 1 mL 5000 UNIT SUBCUT (14:45)
[2020-05-08] MEDS: pantoprazole 40 mg SDV IVP (14:45)
[2020-05-08] MEDS: linezolid premix 600 MG/300 ML PREMIX 300 MG IV (14:58)
[2020-05-08] MEDS: sodium chloride 0.9% 1,000 ML 75 ML IV (15:46)
--- NOTE | 2020-05-08 16:15 | PC.PT ---
PT note; nursing staff request hold PT evaluation due to low blood pressure today; will reattempt tomorrow
[2020-05-08 16:38] LABS: Magnesium 1.8 mg/dL (1.7-2.3); Phosphorus 5.8 mg/dL (2.5-4.5)
[2020-05-08 17:29] LABS: Glucose Point of Care 136 mg/dL (70-110)
[2020-05-08] MEDS: nystatin powder 15 gm Btl 1 APPLIC TOPICAL (17:33)
--- NOTE | 2020-05-08 19:48 | PM.CONSULT ---
Providers/Reason For Consult Consulting Physican/Specialty*: Cardiology Reason for Consult*: Critical limb ischemia Attending Physician: Chioma Mccauley DO History of Present Illness History of Present Illness Leatha Emery is a 69 year old female was admitted with mental status changes found to be in acute on chronic renal failure and creatinine of 5.2. There was also suspicion of sepsis with hypotension for which IV antibiotic was given and IV fluids were started. During examination she was noted to have swollen left lower extremity with nonhealing ulcers on the foot and hernandez. Vascular ultrasound suspected tibial arteriopathy. Patient has CTA couple of months back which was suggestive of bilateral SFA and below the knee heavy calcification, CTA was not very explanatory regarding the disease. We have been asked to assist in her care for critical limb ischemia. Please note that patient is not good historian and appears to be confused. Therefore history is as per nursing staff and our medicine colleagues note. US/[place] [id number] IMPRESSION: 1. No sign of iliac, femoral or popliteal significant stenosis or occlusion. 2. 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 Review of Systems General: Reports: ROS unobtainable due to medical condition and ROS unobtainable due to mental status Const: Denies: fever(s), chills, body aches or change in appetite Eyes: Denies: change in vision, blurry vision, photophobia or eye discomfort ENMT: Denies: throat pain, enlarged tonsils, dental pain or nasal congestion Card: Reports: edema; Denies: chest pain or palpitations Resp: Denies: dyspnea, productive cough or hemoptysis GI: Denies: abdominal pain, nausea, vomiting, diarrhea, constipation, hematochezia or melena : Denies: dysuria or hematuria Musc: Reports: extremity pain; Denies: neck pain, back pain, joint warmth or muscle cramps Skin/Breast: Reports: erythema and other (Chronic ulceration and wounds in the left lower extremity and right lower extremity); Denies: rash or new lesions Neuro: Reports: weakness in extremities; Denies: headache(s) or dizziness Psych: Denies: anxiety or depression Endo: Denies: polyuria or hot flashes Vitor/Lymph: Denies: easy bruising or easy bleeding All/Imm: Denies: urticaria Meds/Allergies Home Medications and Allergies Home Medications Medication Instructions Recorded Confirmed Last Taken Type Breo Ellipta 1 inh INHALATION DAILY 01/30/20 05/08/20 05/07/20 History Farxiga 5 mg PO DAILY 01/30/20 05/08/20 05/07/20 History Toviaz 4 mg PO DAILY 01/30/20 05/08/20 05/07/20 History Tradjenta 5 mg PO DAILY 01/30/20 05/08/20 05/07/20 History acetaminophen 650 mg PO QID PRN 01/30/20 05/08/20 01/29/20 History amlodipine 5 mg PO DAILY 01/30/20 05/08/20 05/07/20 History aripiprazole 5 mg PO BID 01/30/20 05/08/20 05/07/20 History bisacodyl 10 mg DE DAILY PRN 01/30/20 05/08/20 01/30/20 History calcium carbonate 500 mg PO DAILY 01/30/20 05/08/20 05/07/20 History fluticasone propionate 2 spray INTRANASAL DAILY 01/30/20 05/08/20 05/07/20 History furosemide [Lasix] 40 mg PO DAILY 01/30/20 05/08/20 05/07/20 History levothyroxine 125 mcg PO DAILY 01/30/20 05/08/20 05/07/20 History lisinopril 10 mg PO DAILY 01/30/20 05/08/20 05/07/20 History magnesium hydroxide [Milk of 30 ml PO DAILY PRN 01/30/20 05/08/20 01/29/20 History Magnesia] melatonin 5 mg PO DAILY 01/30/20 05/08/20 05/07/20 History mirtazapine 45 mg PO DAILY 01/30/20 05/08/20 05/07/20 History multivitamin 1 tab PO DAILY 01/30/20 05/08/20 05/07/20 History nystatin 1 applic TOPICAL BID 01/30/20 05/08/20 05/07/20 History oxycodone-acetaminophen 1 tab PO DAILY 01/30/20 05/08/20 05/07/20 History oxycodone-acetaminophen 1 tab PO Q4H PRN 01/30/20 05/08/20 05/07/20 History pantoprazole 40 mg PO DAILY 01/30/20 05/08/20 05/07/20 History polyethylene glycol 3350 [Miralax] 17 g PO DAILY PRN 01/30/20 05/08/20 01/30/20 History senna 8.6 mg PO BID 01/30/20 05/08/20 05/07/20 History simvastatin 20 mg PO DAILY 01/30/20 05/08/20 05/07/20 History trazodone 200 mg PO BEDTIME 01/30/20 05/08/20 05/07/20 History venlafaxine 150 mg PO DAILY 01/30/20 05/08/20 05/07/20 History Pro-Stat AWC 1 ea PO DAILY 04/15/20 05/08/20 05/07/20 History metoprolol tartrate 75 mg PO BID 30 Days #90 tab 04/22/20 05/08/20 05/07/20 Rx olanzapine 5 mg PO DAILY 30 Days #30 tab 04/22/20 05/08/20 05/07/20 Rx collagenase clostridium histo. 1 applic TOPICAL DAILY 05/08/20 05/08/20 05/07/20 History [Santyl] cyclobenzaprine 5 mg PO Q8H PRN 05/08/20 05/08/20 Unknown History hydroxyzine HCl 50 mg PO QID PRN 05/08/20 05/08/20 Unknown History lactulose 30 ml PO DAILY PRN 05/08/20 05/08/20 Unknown History lidocaine HCl 1 applic TOPICAL DAILY PRN 05/08/20 05/08/20 Unknown History lidocaine HCl [Lidocaine Viscous] 1 applic MUCOUS MEMBRANE QID PRN 05/08/20 05/08/20 Unknown History menthol [Biofreeze (menthol)] 1 applic TOPICAL BID PRN 05/08/20 05/08/20 Unknown History ondansetron HCl [Zofran] 4 mg PO Q6H PRN 05/08/20 05/08/20 Unknown History brehilaob-aiseoewe-jawpb-w.pet 1 applic DE BID PRN 05/08/20 05/08/20 Unknown History [Hemorrhoidal Cream] sodium phosphates [Enema] 118 ml DE DAILY PRN 05/08/20 05/08/20 Unknown History tramadol 50 mg PO Q8H PRN 05/08/20 05/08/20 Unknown History Allergies Allergy/AdvReac Type Severity Reaction Status Date / Time clarithromycin Allergy Unknown Unknown Verified 04/16/20 14:33 hydrocodone Allergy Unknown Unknown Verified 04/16/20 14:33 metformin Allergy Unknown Unknown Verified 04/16/20 14:33 sitagliptin [From Januvia] Allergy Unknown Unknown Verified 04/16/20 14:33 tetanus and diphtheria Allergy Unknown Unknown Verified 04/16/20 14:33 toxoids triamcinolone Allergy Unknown Unknown Verified 04/16/20 14:33 Current Medications Current Medications Generic Name Dose Route Start Last Admin Trade Name Freq PRN Reason Stop Dose Admin Heparin Sodium (Beef Lung) 5,000 unit 05/08/20 13:00 05/08/20 14:45 Heparin SUBCUT 5,000 unit Q12H SWATI Administration Sodium Chloride 500 mls @ 999 mls/hr 05/08/20 12:45 05/08/20 16:00 Sodium Chloride 0.9% IV Infused .Q31M SWATI Infusion Norepinephrine Bitartrate 4 mg 254 mls @ 0 mls/hr 05/08/20 12:45 05/08/20 18:22 / Dextrose IV 8 mcg/min .Q0M SWATI 30.5 mls/hr Titration Protocol Per Protocol Sodium Chloride 1,000 mls @ 75 mls/hr 05/08/20 12:30 05/08/20 15:46 Sodium Chloride 0.9% IV 75 mls/hr .[id number] SWATI Administration Linezolid 600 mg in 300 mls @ 300 mls/hr 05/08/20 15:00 05/08/20 16:00 Zyvox Premix IV Infused Q12H SWATI Infusion Protocol Insulin Aspart 0 unit 05/08/20 18:00 05/08/20 17:22 Novolog SUBCUT Not Given TIDWM SWATI Protocol Metoprolol Tartrate 75 mg 05/08/20 18:00 05/08/20 17:35 Lopressor PO Not Given BID SWATI Nystatin 1 applic 05/08/20 18:00 05/08/20 17:33 Nystatin Powder TOPICAL 1 applic BID SWATI Administration Pantoprazole Sodium 40 mg 05/08/20 13:00 05/08/20 14:45 Protonix IVP 40 mg DAILY SWATI Administration PFSH Acute PFSH: Medical History Chronic kidney disease, stage 3 COPD (chronic obstructive pulmonary disease) Diabetic nephropathy Hypertension Hypothyroidism Leg ulcer, left PVD (peripheral vascular disease) Sleep apnea Type 2 diabetes mellitus Vascular dementia Surgical History History of bilateral knee arthroplasty S/P breast lumpectomy Family History Father Diabetes Hypertension Mother CAD (coronary artery disease) Hypertension Social History Smoking and tobacco status: never smoked Alcohol intake: never Household members: other 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 HEENT: No cyanosis. No icterus. No pallor. HEART: Regular S1 and S2. No murmur, rub or gallop. LUNGS: Clear to auscultate bilaterally. ABDOMEN: Soft, nontender and nondistended. Positive bowel sounds. No guarding, rebound or tenderness. CENTRAL NERVOUS SYSTEM: Grossly nonfocal. EXTREMITIES: Left leg swollen wrapped with nonhealing foot ulcer nonpalpable pulses but temperature of foot is normal with ruborous appearance Urinary Catheter Management^: Patino: Cath Placed During This Visit: yes Reason for Continuing Indwelling Catheter: Accurate Measurement of Urinary Output in Critically Ill Patients Urinary Catheter Date of Insertion: 05/08/20 Urinary Catheter Time of Insertion: 13:00 Data Micro: Micro: Microbiology 05/08/20 08:50 Blood Culture - Pr eliminary Blood SPECIMEN TATUM SEYMOUR 05/08/20 08:42 Blood Culture - Pr eliminary Blood SPECIMEN [facility] Assessment and plan (1) Critical lower limb ischemia: This is a complicated patient with past medical history significant for hypertension peripheral vascular disease obesity lymphedema chronic venous and arterial ulcer diabetes mellitus and chronic kidney disease with acute injury. She does have element critical limb ischemia but not acute leg. She has worsening of chronic kidney disease with acute on chronic status. At the moment she is at a very high risk of contrast-induced nephropathy therefore we would recommend treating her conservatively with antibiotics and wound care. Further plan will be advised as per progress of the patient. Status: Acute (2) Acute kidney injury: As per nephrology Status: Acute (3) Atrial fibrillation: Rate controlled continue med Status: Acute (4) Sepsis associated hypotension: Continue IV fluid and antibiotics Status: Acute Consult Attestations Medical Necessity Statement: Patient require continuation hospitalization for above defined care Coding Level of Care Code Established Pt Acute Python [employer] for [facility] Fwd Patient Type Established History Detailed Exam Detailed Medical Decision Making High Complexity Diagnoses Critical lower limb ischemia I99.8 Acute kidney injury N17.9 Atrial fibrillation I48.91 Sepsis associated hypotension A41.9; I95.9
[2020-05-08] MEDS: morphine 4 mg/mL SDV 1 mL 2 MG IVP (21:50)
[2020-05-09] VITALS (46 sets, daily range): BP systolic 57–142; BP diastolic 33–72; PULSE 85–120; RESP 14–27; TEMP 37–37.2; O2SAT 95–100
[2020-05-09] MEDS: sodium chloride 0.9% 1,000 ML 75 ML IV (00:57)
[2020-05-09] MEDS: heparin 5,000 unit/mL INJ 1 mL 5000 UNIT SUBCUT ×2 (00:57→14:43)
[2020-05-09 01:41] LABS: Glucose Point of Care 106 mg/dL (70-110)
[2020-05-09] MEDS: linezolid premix 600 MG/300 ML PREMIX 300 MG IV ×2 (02:17→15:11)
[2020-05-09] MEDS: morphine 4 mg/mL SDV 1 mL 2 MG IVP (02:17)
[2020-05-09] MEDS: hyDROXYzine 25 mg Capsule 50 MG PO (02:31)
--- NOTE | 2020-05-09 02:38 | PC.NURSE ---
Over last hour, pt has become increasingly agitated. Pt has been yelling at nurse. Pt has been stating she needs to get up and get going . Pt has been reoriented and redirected multiple times. Pt has been repositioned and given pain medicine as well as visteril.
[2020-05-09 05:07] LABS: INR 1.02 (0.8-1.2)
[2020-05-09 05:10] LABS: Alanine Aminotransferase 17 U/L (0-33); Alkaline Phosphatase 131 IU/L (35-105); Aspartate Amino Transferase 22 U/L (0-32); Blood Urea Nitrogen 27 mg/dL (8-23); Calcium 7.2 mg/dL (8.5-10.5); Carbon Dioxide 18 mmol/L (22-29); Chloride 107 mmol/L (98-107); Globulin 3.6 g/dL (1.3-4.6); Glucose 126 mg/dL (65-115); Osmolality Calculated 283 mOsm/kg (285-295); Sodium 137 mmol/L (136-145); Total Bilirubin 0.3 mg/dL (0.15-1.2); Total Protein 5.6 g/dL (6.6-8.7)
[2020-05-09 05:41] LABS: Anion Gap 15.2 (5-19); Potassium 3.2 mmol/L (3.5-5.1)
[2020-05-09 06:29] LABS: Basophils % 0.2 %; Eosinophils # 0.7 10^3/uL (0.0-0.8); Eosinophils % 3.9 %; Hematocrit 26.9 % (37.0-47.0); Hemoglobin 8.8 g/dL (11.5-15.3); Lymphocytes # 2.2 10^3/uL (0.8-4.8); Mean Corpuscular HGB Conc 32.7 g/dL (30.0-36.0); Mean Corpuscular Hemoglobin 29.1 pg (28.0-34.0); Mean Corpuscular Volume 89.1 fL (81-99); Mean Platelet Volume 9.6 fL (7.4-10.4); Monocytes # 1.5 10^3/uL (0.2-0.9); Monocytes % 8.7 %; Neutrophils # 12.72 10^3/uL (1.8-7.7); Neutrophils % 73.7 %; Nucleated Red Blood Cells % 0 %; Platelet Count 349 10^3/cmm (130-400); Red Blood Count 3.02 10^6/uL (4.1-5.3); Red Cell Distribution Width 17.2 % (12.1-15.1); White Blood Count 17.3 10^3/uL (4.0-10.0)
[2020-05-09 07:58] LABS: Glucose Point of Care 122 mg/dL (70-110)
[2020-05-09] MEDS: calcium carbonate 500 mg Chew Tablet PO (08:58)
[2020-05-09] MEDS: atorvastatin 40 mg Tablet 20 MG PO (08:58)
[2020-05-09] MEDS: fluticasone nasal spray 16gm Btl 2 SPRAY INTRANASAL (08:59)
[2020-05-09] MEDS: pantoprazole 40 mg SDV IVP (09:00)
[2020-05-09] MEDS: levothyroxine 125 mcg Tablet PO (09:00)
[2020-05-09] MEDS: nystatin powder 15 gm Btl 1 APPLIC TOPICAL ×2 (09:00→17:24)
[2020-05-09] MEDS: piperacillin-tazobactam 3.375 GM in sodium chloride 0.9% (plus) 50 ML IV ×2 (09:01→20:58)
--- NOTE | 2020-05-09 09:40 | PM.PN ---
Subjective Subjective: Interval history: Patient known to me from most recent admission. Chart reviewed, noted slight increase in leukocytosis to 17.3, stable hemoglobin at 8.8, had 500 mL urine output overnight, mild hypokalemia with potassium of 3.2, improving renal function. Noted to have a low-grade temp of 100.6 F yesterday afternoon, has been afebrile since. Normotensive, on 2 L nasal cannula. Remains on IV fluid hydration and IV antibiotics. Resting in bed, case discussed with Dr. Osborne, wound dressings removed and significantly worse compared to my last encounter with patient with noted foul smelling purulent drainage, sniffing and discomfort during dressing change. Will likely need to be surgically debrided. Medications: Reviewed: Yes Medication Review Details: Active Medications Generic Name Dose Route Start Last Admin Trade Name Freq PRN Reason Stop Dose Admin Acetaminophen 650 mg 05/08/20 12:30 Tylenol PO Q6H PRN MILD PAIN Acetaminophen 650 mg 05/08/20 13:26 Tylenol PO QID PRN Pain Albuterol/Ipratrop ium 3 ml 05/08/20 15:00 Duoneb INHALATION Q6H.RESPIRATORY P RN SHORTNESS OF NEICY TH Atorvastatin Calci um 20 mg 05/09/20 09:00 05/09/20 08:58 Lipitor PO 20 mg DAILY SWATI Administration Calcium Carbonate 500 mg 05/09/20 09:00 05/09/20 08:58 Tums PO 500 mg DAILY SWATI Administration Collagenase 1 applic 05/09/20 09:00 Santyl TOPICAL DAILY SWATI Dextrose 25 ml 05/08/20 15:47 D50w IVP ONCE PRN hypoglycemia prot ocol Protocol Dextrose 50 ml 05/08/20 15:47 D50w IVP PRN PRN hypoglycemia prot ocol Protocol Fluticasone Propio jovan 2 spray 05/09/20 09:00 05/09/20 08:59 Flonase INTRANASAL 2 spray DAILY SWATI Administration Glucagon 1 mg 05/08/20 15:47 Glucagen IM ONCE PRN Adult Acute Hypog lycemia Prot. Protocol Heparin Sodium (Be ef Lung) 5,000 unit 05/08/20 13:00 05/09/20 00:57 Heparin SUBCUT 5,000 unit Q12H SWATI Administration Hydroxyzine Pamoat e 50 mg 05/08/20 13:51 05/09/20 02:31 Vistaril PO 50 mg QID PRN Administration Anxiety Norepinephrine Bit artrate 4 mg 254 mls @ 0 mls/h r 05/08/20 12:45 05/09/20 05:06 / Dextrose IV 8 mcg/min .Q0M SWATI 30.5 mls/hr Administration Protocol Per Protocol Sodium Chloride 1,000 mls @ 75 ml s/hr 05/08/20 12:30 05/09/20 00:57 Sodium Chloride 0.9% IV 75 mls/hr .[id number] SWATI Administration Piperacillin Sod/T azobactam 50 mls @ 12.5 mls /hr 05/08/20 21:30 05/09/20 09:01 Sod 3.375 gm/ So dium Chloride IV 12.5 mls/hr Q12H SWATI Administration Protocol Linezolid 600 mg in 300 mls @ 300 mls/hr 05/08/20 15:00 05/09/20 02:17 Zyvox Premix IV 300 mls/hr Q12H SWATI Administration Protocol Dextrose 500 mls @ 100 mls /hr 05/08/20 15:47 D5w IV ONCE PRN Adult Acute Hypog lycemia Prot Protocol Insulin Aspart 0 unit 05/08/20 21:00 05/08/20 21:31 Novolog SUBCUT Not Given BEDTIME SWATI Protocol Insulin Aspart 0 unit 05/08/20 18:00 05/09/20 08:28 Novolog SUBCUT Not Given TIDWM [facility] Protocol Lactulose 20 gm 05/08/20 14:15 Constulose PO DAILY PRN Constipation Levothyroxine Sodi um 125 mcg 05/09/20 09:00 05/09/20 09:00 Synthroid PO 125 mcg DAILY SWATI Administration Lidocaine HCl 1 applic 05/08/20 13:26 Lidocaine 2% Jel ly TOPICAL DAILY PRN TOPICAL Pain Lidocaine HCl 15 ml 05/08/20 13:26 Lidocaine 2% Vis cous MUCOUS MEM QID PRN MOUTH Pain Metoprolol Tartrat e 75 mg 05/08/20 18:00 05/08/20 17:35 Lopressor PO Not Given BID SWATI Morphine Sulfate 2 mg 05/08/20 12:30 05/09/20 02:17 Morphine IVP 2 mg Q4H PRN Administration SEVERE PAIN Naloxone HCl 0.1 mg 05/08/20 12:30 Narcan IVP Q2M PRN RESPIRATORY RATE < 8/MIN Non-Formulary Medi cation 1 each 05/09/20 09:00 Amino Acids-Prot ein Hydrolys [Pro- Stat Awc] PO DAILY SWATI Non-Formulary Medi cation 1 inh 05/09/20 09:00 Fluticasone Furo ate-Vilanterol [Br eo Ellipta] INHALATION DAILY [facility] Nystatin 1 applic 05/08/20 18:00 05/09/20 09:00 Nystatin Powder TOPICAL 1 applic BID SWATI Administration Olanzapine 5 mg 05/09/20 21:00 Zyprexa Zydis PO BEDTIME SWATI Ondansetron HCl 4 mg 05/08/20 12:30 Zofran IVP Q6H PRN NAUSEA AND VOMITI NG Oxycodone/Acetamin ophen 1 tab 05/08/20 13:26 Percocet 10-325 Mg PO Q4H PRN Pain Pantoprazole Sodiu m 40 mg 05/08/20 13:00 05/09/20 09:00 Protonix IVP 40 mg DAILY [facility] Administration Tramadol HCl 50 mg 05/08/20 13:26 Ultram PO Q8H PRN Pain Venlafaxine HCl 150 mg 05/09/20 09:00 Effexor Xr PO DAILY [facility] clarithromycin Allergy (Unknown, Verified 04/16/20 14:33) Unknown hydrocodone Allergy (Unknown, Verified 04/16/20 14:33) Unknown metformin Allergy (Unknown, Verified 04/16/20 14:33) Unknown sitagliptin [From Januvia] Allergy (Unknown, Verified 04/16/20 14:33) Unknown tetanus and diphtheria toxoids Allergy (Unknown, Verified 04/16/20 14:33) Unknown triamcinolone Allergy (Unknown, Verified 04/16/20 14:33) Unknown Vitals/I&O/Wt Last Vital Signs Temp 98.9 F 05/09/20 02:00 Pulse 93 05/09/20 06:00 Resp 22 H 05/09/20 06:00 BP 113/56 05/09/20 06:00 Pulse Ox 96 05/09/20 06:00 05/08/20 05/09/20 05/09/20 22:59 06:59 14:59 Intake Total 1296.367 / 1856.290 966.992 / 2823.282 Output Total 500 / 500 Balance 1296.367 / 1856.290 466.992 / 2323.282 Weight last 48 hrs Weight 105.687 kg Physical Exam Const: COMMON NORMALS: no acute distress and alert GENERAL APPEARANCE: cooperative and comfortable NUTRITIONAL APPEARANCE: obese morbidly obese ORIENTATION/CONSCIOUSNESS: Yes awake OTHER: -fatigues easily HENMT: COMMON NORMALS: normocephalic, atraumatic, hearing grossly normal bilaterally and moist oral mucous membranes HEAD & SCALP: normocephalic and atraumatic Eye: COMMON NORMALS: Equal, round and reactive pupils present, EOMs intact bilaterally and conjunctivae normal CONJUNCTIVA: Yes conjunctivae normal PUPIL: Yes Equal, round and reactive pupils present Neck/C-Spine: COMMON NORMALS: full ROM GENERAL: Yes normal visual inspection and Yes trachea midline Resp: EFFORT & INSPECTION: Yes symmetric chest movement and No tachypneic AUSCULTATION: wheezes and diminished lung sounds Cardio: COMMON NORMALS: regular rhythm, S1 normal heart sound present, S2 normal heart sound present and No murmurs present (Cardio) RATE: tachycardic (intermittently) RHYTHM: regular rhythm HEART SOUNDS: S1 normal heart sound present and S2 normal heart sound present GI: COMMON NORMALS: Normal to inspection, nondistended, normoactive bowel sounds present, Soft to palpation and non-tender INSPECTION: Yes central obesity PALPATION: Yes Soft to palpation : BLADDER/KIDNEY EXAM: Yes catheter in place Catheter type (Female): urethral Extremity: NARRATIVE EXTREMITY EXAM: -chronic lymphedema Neuro: COMMON NORMALS: no focal motor deficits and no sensory deficits noted SENSORIUM/ORIENTATION: Yes alert Psych: COMMON NORMALS: mental status grossly normal, Normal thought process present, cooperative, normal affect and speech normal SPEECH: Yes normal speech THOUGHT PROCESS: Normal thought process present Skin: NARRATIVE SKIN EXAM: -LLE: ulcerations some of which are circumferential, noted necrosis and eschars, purulent and foul smelling drainage Urinary Catheter Management^: Patino: Cath Placed During This Visit: yes Reason for Continuing Indwelling Catheter: Accurate Measurement of Urinary Output in Critically Ill Patients Urinary Catheter Date of Insertion: 05/08/20 Urinary Catheter Time of Insertion: 13:00 Data : 05/09/20 03:57 05/09/20 03:57 Micro: Microbiology 05/08/20 08:50 Blood Culture - Preliminary Blood NEGATIVE TO DATE 05/08/20 08:42 Blood Culture - Preliminary Blood NEGATIVE TO DATE A&P Assessment and plan (1) Sepsis: -Also noted during previous admission, at that time secondary to UTI with urine cultures growing ESBL E. coli. Treated with carbapems. This time appears to be sepsis secondary to LLE cellulitis with noted purulent foul-smelling drainage, necrosis on wound bed. Will need surgical debridement, surgery consult placed -Initially required pressor support and on IV fluid hydration. Wean off pressor support as tolerated -Noted increased leukocytosis with white count of 17.3, neutrophilic predominance; continue to trend WBC -Low-grade temperature 100.6 F yesterday afternoon, afebrile since, lactate-1.4 -Normotensive, heart rate in the 90-100 range. Continue to monitor vital signs closely -Urinalysis negative -Blood cultures prelim negative -Imaging negative for acute infection -tested for COVID-19 during last admission, negative Status: Acute Qualifiers: Acute respiratory failure type: unspecified Sepsis acute organ dysfunction status: with acute organ dysfunction Sepsis type: sepsis due to unspecified organism Severe sepsis acute organ dysfunction type: acute respiratory failure Severe sepsis shock status: with septic shock Qualified Code(s): A41.9 - Sepsis, unspecified organism; R65.21 - Severe sepsis with septic shock; J96.00 - Acute respiratory failure, unspecified whether with hypoxia or hypercapnia (2) Sepsis associated hypotension: -As noted above Status: Acute (3) Critical lower limb ischemia: -Noted to have diminished pulses in the left lower extremity in addition to, increased drainage from chronic ulcers -Arterial studies suggestive of tibial arteriopathy -Consult by Dr. Alejandre appreciated. Patient at high risk for contrast-induced nephropathy so we will continue conservative management at this time Status: Acute (4) Acute metabolic encephalopathy: -Noted LOC at [facility] -Seems to be back to her baseline -CT head does not show any acute findings -Strict fall precautions, reorient as needed -Does have vascular dementia at baseline Status: Acute (5) Acute kidney injury: -PERRY on CKD stage III -Likely multifactorial given recent antibiotic use, dehydration -On IV fluid hydration -Improving renal function, continue to monitor -HONORIO inhibitor, diuretics on hold -Renally dose meds, avoid nephrotoxins -Nephrology consult appreciated -Has Patino catheter in place, continue to monitor urine output -CPK-212, BNP-24,925, elevated uric acid-10.2 -monitor for fluid overload with continued IVF; Echo (01/2020)-EF=55% Status: Acute (6) Cellulitis: -On IV Zosyn and Zyvox -Noted leukocytosis, low-grade temp -Blood cultures prelim negative -significantly worse compared to most recent admission, will need surgical debridement Status: Acute Qualifiers: Laterality: left Site of cellulitis: extremity Site of cellulitis of extremity: lower extremity Qualified Code(s): L03.116 - Cellulitis of left lower limb (7) Peripheral vascular disease: -Peripheral vascular disease with bilateral LE ulcers; wound care as needed, elevation as tolerated. Recent CTA aorta with runoff. Has been following up with Dr. Peguero at [facility] Status: Chronic (8) Bilateral leg ulcer: -Follows up with wound care clinic, continue wound care Status: Chronic Qualifiers: Non-pressure ulcer stage: unspecified non-pressure ulcer stage Qualified Code(s): L97.919 - Non-pressure chronic ulcer of unspecified part of right lower leg with unspecified severity; L97.929 - Non-pressure chronic ulcer of unspecified part of left lower leg with unspecified severity (9) Acute on chronic anemia: -Has acute on chronic normocytic anemia -Baseline hemoglobin appears to be 10-11 -Continue to monitor H&H; stable currently -Likely multifactorial part of which is secondary to underlying chronic kidney disease -Transfuse blood products as needed Status: Acute (10) Chronic kidney disease, stage 3: Status: Chronic (11) Hypertension: -antihypertensives on hold due to hypotension Status: Chronic Qualifiers: Hypertension type: essential hypertension Qualified Code(s): I10 - Essential (primary) hypertension (12) COPD (chronic obstructive pulmonary disease): -supplemental oxygen as needed -no acute exacerbation currently -required intubation during last admission -continue to monitor respiratory status Status: Chronic Qualifiers: COPD type: emphysema Emphysema type: unspecified Qualified Code(s): J43.9 - Emphysema, unspecified (13) Vascular dementia: Status: Chronic Qualifiers: Dementia behavioral disturbance: with behavioral disturbance Qualified Code(s): F01.51 - Vascular dementia with behavioral disturbance (14) Type 2 diabetes mellitus: -last A1c-6.6 -Accucheks, ISS, hypoglycemia precautions -hold oral hypoglycemic agents -DM complicated by nephropathy, peripheral vascular disease, neuropathy Status: Chronic Qualifiers: Diabetes mellitus complication status: with other specified complication Diabetes mellitus correction insulin use: without 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 termite use Qualified Code(s): E11.69 - Type 2 diabetes mellitus with other specified complication (15) Hypothyroidism: -on levothyroxine -TSH wnl Status: Chronic Qualifiers: Hypothyroidism type: unspecified Qualified Code(s): E03.9 - Hypothyroidism, unspecified Additional A&P Information -GERD; on PPI -Morbid obesity: BMI-41 kg/m2 though overall has quite poor nutrition status as reflected by hypoalbuminemia which is contributing to lymphedema -large hiatal hernia -Dyslipidemia; on statin -Chronic pain; on narcotics -consistent carb diet -GI ppx with PPI -DVT ppx with heparin -[place] [facility] [place], case management consulted -Code status: FULL code -ICU care due to acute renal failure, acute metabolic encephalopathy, sepsis with need for pressor support Attestations Medical Necessity Statement*: Patient requires hospitalization for continued management of sepsis, acute renal impairment and LLE cellulitis with extensive wounds requiring debridement. Time Spent in Patient Care: Greater than 35 minutes (>than 50% of time spent in counselling and/or direct pt care on unit). Coding Level of Care Code Acute Turnaround Engineer for Chg Fwd Exam Comprehensive Diagnoses Sepsis A41.9; R65.21; J96.00 Acute respiratory failure type: unspecified Sepsis acute organ dysfunction status: with acute organ dysfunction Sepsis type: sepsis due to unspecified organism Severe sepsis acute organ dysfunction type: acute respiratory failure Severe sepsis shock status: with septic shock Sepsis associated hypotension A41.9; I95.9 Critical lower limb ischemia I99.8 Acute metabolic encephalopathy G93.41 Acute kidney injury N17.9 Cellulitis L03.116 Laterality: left Site of cellulitis: extremity Site of cellulitis of extremity: lower extremity Peripheral vascular disease I73.9 Bilateral leg ulcer L97.919; L97.929 Non-pressure ulcer stage: unspecified non-pressure ulcer stage Acute on chronic anemia D64.9 Chronic kidney disease, stage 3 N18.3 Hypertension I10 Hypertension type: essential hypertension COPD (chronic obstructive pulmonary disease) J43.9 COPD type: emphysema Emphysema type: unspecified Vascular dementia F01.51 Dementia behavioral disturbance: with behavioral disturbance Type 2 diabetes mellitus E11.69 Diabetes mellitus complication status: with other specified complication Diabetes mellitus 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 termite insulin use: without correction use Hypothyroidism E03.9 Hypothyroidism type: unspecified
--- NOTE | 2020-05-09 09:56 | P.PN_ITS ---
Subjective Subjective: Interval history: No new issues overnight, she is sick but has remained stable. Levo at 7 UO 400mL last night and 150mL so far today since 6am Remains on 75mL/hr of NS Feet and legs look edematous Cognitively she is about the same; some dementia; arousable Denies pain and no uremic Sx. Breathing comfortably on 2L nasal, 99% sat Medications: Reviewed: Yes Vitals/I&O/Wt Last Vital Signs Temp 98.9 F 05/09/20 02:00 Pulse 102 H 05/09/20 09:48 Resp 18 05/09/20 09:48 BP 113/56 05/09/20 06:00 Pulse Ox 98 05/09/20 09:48 05/08/20 05/09/20 05/09/20 22:59 06:59 14:59 Intake Total 1296.367 / 1856.290 966.992 / 2823.282 Output Total 500 / 500 Balance 1296.367 / 1856.290 466.992 / 2323.282 Weight last 48 hrs Weight 105.687 kg Physical Exam Narrative: EXAM NARRATIVE: Constitutional: Awake, comfortable, yelling when moved HEENT: Wet mucosa, no jvp, non icteric Lungs: Bilaterally diminished but clear without discernible wheeze or rales in all lung zones CVS: S1 S2, no murmurs Abdo: Soft, BS ok Ext 4: Minimal edema, peripheral perfusion with no cyanosis. LE extremity with cellulitic changes Neurological: Grossly non-focal Patient seen and examined via telemedicine, with the assistance of the bedside RN Urinary Catheter Management^: Patino: Cath Placed During This Visit: yes Reason for Continuing Indwelling Catheter: Accurate Measurement of Urinary Output in Critically Ill Patients Urinary Catheter Date of Insertion: 05/08/20 Urinary Catheter Time of Insertion: 13:00 Data : 05/09/20 03:57 05/09/20 03:57 Micro: Microbiology 05/08/20 08:50 Blood Culture - Preliminary Blood NEGATIVE TO DATE 05/08/20 08:42 Blood Culture - Preliminary Blood NEGATIVE TO DATE A&P Additional A&P Information 1. Acute renal failure. Given the severe hypotension that she is presenting with, and likely severe hypo tension in the nursing facility prompting her loss of consciousness, renal hypoperfusion with the possible resultant ischemic acute tubular necrosis is the likely cause of renal failure. Hopefully there is an element of prerenal azotemia. Acute interstitial nephritis/tubular injury from recent antibiotics exposure is also possible, we are tracking down the outpatient antibiotics that she received. Creatinine coming down nicely Cont ivf remains on Levophed at 7, titrating down as tolerated Dose medications for GFR less than 15 Avoid usual nephrotoxic agents Strict ins and outs 2. Chemistry Will replace K with 40mEq and change ivf to LR 3. Lower extremity cellulitis. May need further angiographic dye evaluation, kidneys recovering, ideally would wait for creatinine to be well below 2mg/dL prior to dye administration, if the leg becomes critical we may need to pull the trigger sooner and accept a higher risk to her kidneys Cultures sent and pending 4. Anemia. Hemoglobin 8.8. Remains stable. Will monitor closely and if it drops much more is we will send off iron studies and consider EPO dosing Albert Osborne MD Nephrology [phone] Patient seen and examined via telemedicine, with the assistance of the bedside RN Attestations Medical Necessity Statement*: eval for renal failure Coding Level of Care Code Acute Iron Piler for Darek Ojeda
[2020-05-09] MEDS: silver sulfadiazine cream 1% 50 gm 1 APPLIC TOPICAL ×2 (10:59→17:25)
[2020-05-09] MEDS: potassium chloride premix 40 MEQ/100 ML PREMIX 25 MEQ IV (11:00)
[2020-05-09] MEDS: lactated ringers 1,000 ML 75 ML IV ×2 (11:01→23:02)
--- NOTE | 2020-05-09 11:02 | PM.CONSULT ---
Providers/Reason For Consult Consulting Physican/Specialty*: General Surgery Surya Russo MD Reason for Consult*: Requesting debridement of left lower leg. Attending Physician: Milagros Mcpherson MD History of Present Illness History of Present Illness Leatha Emery is a 69 year old female with peripheral vascular disease with chronic open wounds of the left lower extremity in addition to multiple other medical problems. She is followed in the [facility] [place] clinic by Dr. Mathews. She was recently admitted for a reported syncopal event at the nursing facility where she resides. She was found to have some signs of early sepsis in addition to an acute kidney injury. She was admitted to the intensive care unit for further management. Upon removing the lower extremity dressings she was found to have some eschars forming that were not there 2 weeks ago according to the hospitalist who has seen her on both occasions. I have been asked to consider debriding the areas. Review of Systems General: Reports: 10 or more systems reviewed and unremarkable except in HPI and below Const: Denies: fever(s) Musc: Reports: extremity pain and extremity swelling Meds/Allergies Home Medications and Allergies Home Medications Medication Instructions Recorded Confirmed Last Taken Type Breo Ellipta 1 inh INHALATION DAILY 01/30/20 05/08/20 05/07/20 History Farxiga 5 mg PO DAILY 01/30/20 05/08/20 05/07/20 History Toviaz 4 mg PO DAILY 01/30/20 05/08/20 05/07/20 History Tradjenta 5 mg PO DAILY 01/30/20 05/08/20 05/07/20 History acetaminophen 650 mg PO QID PRN 01/30/20 05/08/20 01/29/20 History amlodipine 5 mg PO DAILY 01/30/20 05/08/20 05/07/20 History aripiprazole 5 mg PO BID 01/30/20 05/08/20 05/07/20 History bisacodyl 10 mg FL DAILY PRN 01/30/20 05/08/20 01/30/20 History calcium carbonate 500 mg PO DAILY 01/30/20 05/08/20 05/07/20 History fluticasone propionate 2 spray INTRANASAL DAILY 01/30/20 05/08/20 05/07/20 History furosemide [Lasix] 40 mg PO DAILY 01/30/20 05/08/20 05/07/20 History levothyroxine 125 mcg PO DAILY 01/30/20 05/08/20 05/07/20 History lisinopril 10 mg PO DAILY 01/30/20 05/08/20 05/07/20 History magnesium hydroxide [Milk of 30 ml PO DAILY PRN 01/30/20 05/08/20 01/29/20 History Magnesia] melatonin 5 mg PO DAILY 01/30/20 05/08/20 05/07/20 History mirtazapine 45 mg PO DAILY 01/30/20 05/08/20 05/07/20 History multivitamin 1 tab PO DAILY 01/30/20 05/08/20 05/07/20 History nystatin 1 applic TOPICAL BID 01/30/20 05/08/20 05/07/20 History oxycodone-acetaminophen 1 tab PO DAILY 01/30/20 05/08/20 05/07/20 History oxycodone-acetaminophen 1 tab PO Q4H PRN 01/30/20 05/08/20 05/07/20 History pantoprazole 40 mg PO DAILY 01/30/20 05/08/20 05/07/20 History polyethylene glycol 3350 [Miralax] 17 g PO DAILY PRN 01/30/20 05/08/20 01/30/20 History senna 8.6 mg PO BID 01/30/20 05/08/20 05/07/20 History simvastatin 20 mg PO DAILY 01/30/20 05/08/20 05/07/20 History trazodone 200 mg PO BEDTIME 01/30/20 05/08/20 05/07/20 History venlafaxine 150 mg PO DAILY 01/30/20 05/08/20 05/07/20 History Pro-Stat AWC 1 ea PO DAILY 04/15/20 05/08/20 05/07/20 History metoprolol tartrate 75 mg PO BID 30 Days #90 tab 04/22/20 05/08/20 05/07/20 Rx olanzapine 5 mg PO DAILY 30 Days #30 tab 04/22/20 05/08/20 05/07/20 Rx collagenase clostridium histo. 1 applic TOPICAL DAILY 05/08/20 05/08/20 05/07/20 History [Santyl] cyclobenzaprine 5 mg PO Q8H PRN 05/08/20 05/08/20 Unknown History hydroxyzine HCl 50 mg PO QID PRN 05/08/20 05/08/20 Unknown History lactulose 30 ml PO DAILY PRN 05/08/20 05/08/20 Unknown History lidocaine HCl 1 applic TOPICAL DAILY PRN 05/08/20 05/08/20 Unknown History lidocaine HCl [Lidocaine Viscous] 1 applic MUCOUS MEMBRANE QID PRN 05/08/20 05/08/20 Unknown History menthol [Biofreeze (menthol)] 1 applic TOPICAL BID PRN 05/08/20 05/08/20 Unknown History ondansetron HCl [Zofran] 4 mg PO Q6H PRN 05/08/20 05/08/20 Unknown History urkcirzax-ptppxrkb-lxton-w.pet 1 applic FL BID PRN 05/08/20 05/08/20 Unknown History [Hemorrhoidal Cream] sodium phosphates [Enema] 118 ml FL DAILY PRN 05/08/20 05/08/20 Unknown History tramadol 50 mg PO Q8H PRN 05/08/20 05/08/20 Unknown History Allergies Allergy/AdvReac Type Severity Reaction Status Date / Time clarithromycin Allergy Unknown Unknown Verified 04/16/20 14:33 hydrocodone Allergy Unknown Unknown Verified 04/16/20 14:33 metformin Allergy Unknown Unknown Verified 04/16/20 14:33 sitagliptin [From Januvia] Allergy Unknown Unknown Verified 04/16/20 14:33 tetanus and diphtheria Allergy Unknown Unknown Verified 04/16/20 14:33 toxoids triamcinolone Allergy Unknown Unknown Verified 04/16/20 14:33 Current Medications Current Medications Generic Name Dose Route Start Last Admin Trade Name Freq PRN Reason Stop Dose Admin Atorvastatin Calcium 20 mg 05/09/20 09:00 05/09/20 08:58 Lipitor PO 20 mg DAILY SWATI Administration Calcium Carbonate 500 mg 05/09/20 09:00 05/09/20 08:58 Tums PO 500 mg DAILY SWATI Administration Fluticasone Propionate 2 spray 05/09/20 09:00 05/09/20 08:59 Flonase INTRANASAL 2 spray DAILY SWATI Administration Heparin Sodium (Beef Lung) 5,000 unit 05/08/20 13:00 05/09/20 00:57 Heparin SUBCUT 5,000 unit Q12H SWATI Administration Hydroxyzine Pamoate 50 mg 05/08/20 13:51 05/09/20 02:31 Vistaril PO 50 mg QID PRN Administration Anxiety Norepinephrine Bitartrate 4 mg 254 mls @ 0 mls/hr 05/08/20 12:45 05/09/20 05:06 / Dextrose IV 8 mcg/min .Q0M SWATI 30.5 mls/hr Administration Protocol Per Protocol Piperacillin Sod/Tazobactam 50 mls @ 12.5 mls/hr 05/08/20 21:30 05/09/20 09:01 Sod 3.375 gm/ Sodium Chloride IV 12.5 mls/hr Q12H SWATI Administration Protocol Linezolid 600 mg in 300 mls @ 300 mls/hr 05/08/20 15:00 05/09/20 02:17 Zyvox Premix IV 300 mls/hr Q12H SWATI Administration Protocol Potassium Chloride 40 meq in 100 mls @ 25 mls/hr 05/09/20 10:09 05/09/20 11:00 K-Etienne IV 05/09/20 14:08 25 mls/hr ONCE ONE Administration Lactated Ringer's 1,000 mls @ 75 mls/hr 05/09/20 10:15 05/09/20 11:01 Lactated Ringers IV 75 mls/hr .[id number] SWATI Administration Insulin Aspart 0 unit 05/08/20 21:00 05/08/20 21:31 Novolog SUBCUT Not Given BEDTIME SWATI Protocol Insulin Aspart 0 unit 05/08/20 18:00 05/09/20 08:28 Novolog SUBCUT Not Given TIDWM [facility] Protocol Levothyroxine Sodium 125 mcg 05/09/20 09:00 05/09/20 09:00 Synthroid PO 125 mcg DAILY SWATI Administration Metoprolol Tartrate 75 mg 05/08/20 18:00 05/09/20 10:51 Lopressor PO Not Given BID SWATI Morphine Sulfate 2 mg 05/08/20 12:30 05/09/20 02:17 Morphine IVP 2 mg Q4H PRN Administration SEVERE PAIN Nystatin 1 applic 05/08/20 18:00 05/09/20 09:00 Nystatin Powder TOPICAL 1 applic BID SWATI Administration Pantoprazole Sodium 40 mg 05/08/20 13:00 05/09/20 09:00 Protonix IVP 40 mg DAILY SWATI Administration Silver Sulfadiazine 1 applic 05/09/20 11:00 05/09/20 10:59 Silvadene TOPICAL 1 applic BID SWATI Administration PFSH Acute PFSH: Medical History Chronic kidney disease, stage 3 COPD (chronic obstructive pulmonary disease) Critical lower limb ischemia Diabetic nephropathy Hypertension Hypothyroidism Leg ulcer, left PVD (peripheral vascular disease) Sleep apnea Type 2 diabetes mellitus Vascular dementia Surgical History History of bilateral knee arthroplasty S/P breast lumpectomy Family History Father Diabetes Hypertension Mother CAD (coronary artery disease) Hypertension Social History Smoking and tobacco status: never smoked Alcohol intake: never Household members: other Housing: Prison Current gender identity: Female Additional social history: [place] [facility] [place] Vitals/I&O/Wt Last Vital Signs Temp 98.9 F 05/09/20 02:00 Pulse 102 H 05/09/20 09:48 Resp 18 05/09/20 09:48 BP 113/56 05/09/20 06:00 Pulse Ox 98 05/09/20 09:48 05/08/20 05/09/20 05/09/20 22:59 06:59 14:59 Intake Total 1296.367 / 2823.282 966.992 / 2823.282 Output Total 500 / 500 Balance 1296.367 / 2323.282 466.992 / 2323.282 Weight last 48 hrs Weight 233 lb Physical Exam Narrative: EXAM NARRATIVE: The patient was encountered in her room in the intensive care unit. She is resting but is easily arousable. The pupils are equal. No carotid bruits are heard. Lungs are clear anteriorly. The heart is irregularly irregular. The abdomen is morbidly obese. The lower extremities are somewhat edematous. The left lower extremity has multiple open wounds in various stages of healing. She has erythema involving the left lower extremity below the knee. She has eschars forming on multiple areas anteriorly but a very large eschar over the posterior aspect of her left lower leg. All of these eschar areas probably amount to approximately 300 cm? of tissue. Urinary Catheter Management^: Patino: Cath Placed During This Visit: yes Reason for Continuing Indwelling Catheter: Accurate Measurement of Urinary Output in Critically Ill Patients Urinary Catheter Date of Insertion: 05/08/20 Urinary Catheter Time of Insertion: 13:00 Data Micro: Micro: Microbiology 05/08/20 08:50 Blood Culture - Pr eliminary Blood Gram positive c occi 05/08/20 08:42 Blood Culture - Pr eliminary Blood Gram positive c occi A&P Assessment and plan (1) Leg ulcer, left: The patient has multiple open wounds of the left lower leg. She has eschars forming over multiple areas anteriorly and essentially the entire back of her left lower leg is an eschar. I told the patient that I think all of this tissue needs to be removed. I told her that I think we will have to go to the operating room to achieve this. She voiced understanding and agrees to proceed. Unfortunately, the patient was allowed to eat breakfast this morning. For that reason, I am going to have the ICU nurses dress these areas today with topical antibiotic, continue intravenous antibiotic therapy, and I will make arrangements for a debridement of the left lower leg eschars in the operating room tomorrow morning. Status: Acute (2) Cellulitis of left leg: Status: Acute Consult Attestations Medical Necessity Statement: See admitting service's notation. Coding Level of Care Code Acute Grading Machine Operator for Darek Ojeda Diagnoses Leg ulcer, left L97.929 Cellulitis of left leg L03.116
--- NOTE | 2020-05-09 12:25 | PC.OT ---
Orders received for evaluation. Hold this date per nursing.
--- NOTE | 2020-05-09 13:06 | PM.PN ---
Subjective Subjective: Interval history: Patient is awake today. She told me she is not hurting. Creatinine has slightly improved. He was seen by surgical colleagues. Most likely she will go for wound debridement by tomorrow due to not being n.p.o. today. Medications: Reviewed: Yes Medication Review Details: Active Medications Generic Name Dose Route Start Last Admin Trade Name Freq PRN Reason Stop Dose Admin Acetaminophen 650 mg 05/08/20 12:30 Tylenol PO Q6H PRN MILD PAIN Acetaminophen 650 mg 05/08/20 13:26 Tylenol PO QID PRN Pain Albuterol/Ipratrop ium 3 ml 05/08/20 15:00 Duoneb INHALATION Q6H.RESPIRATORY P RN SHORTNESS OF NIECY TH Atorvastatin Calci um 20 mg 05/09/20 09:00 05/09/20 08:58 Lipitor PO 20 mg DAILY SWATI Administration Calcium Carbonate 500 mg 05/09/20 09:00 05/09/20 08:58 Tums PO 500 mg DAILY SWATI Administration Collagenase 1 applic 05/09/20 09:00 Santyl TOPICAL DAILY SWATI Dextrose 25 ml 05/08/20 15:47 D50w IVP ONCE PRN hypoglycemia prot ocol Protocol Dextrose 50 ml 05/08/20 15:47 D50w IVP PRN PRN hypoglycemia prot ocol Protocol Fluticasone Propio jovan 2 spray 05/09/20 09:00 05/09/20 08:59 Flonase INTRANASAL 2 spray DAILY SWATI Administration Glucagon 1 mg 05/08/20 15:47 Glucagen IM ONCE PRN Adult Acute Hypog lycemia Prot. Protocol Heparin Sodium (Be ef Lung) 5,000 unit 05/08/20 13:00 05/09/20 00:57 Heparin SUBCUT 5,000 unit Q12H SWATI Administration Hydroxyzine Pamoat e 50 mg 05/08/20 13:51 05/09/20 02:31 Vistaril PO 50 mg QID PRN Administration Anxiety Norepinephrine Bit artrate 4 mg 254 mls @ 0 mls/h r 05/08/20 12:45 05/09/20 05:06 / Dextrose IV 8 mcg/min .Q0M SWATI 30.5 mls/hr Administration Protocol Per Protocol Sodium Chloride 1,000 mls @ 75 ml s/hr 05/08/20 12:30 05/09/20 00:57 Sodium Chloride 0.9% IV 75 mls/hr .[id number] SWATI Administration Piperacillin Sod/T azobactam 50 mls @ 12.5 mls /hr 05/08/20 21:30 05/09/20 09:01 Sod 3.375 gm/ So dium Chloride IV 12.5 mls/hr Q12H SWATI Administration Protocol Linezolid 600 mg in 300 mls @ 300 mls/hr 05/08/20 15:00 05/09/20 02:17 Zyvox Premix IV 300 mls/hr Q12H [facility] Administration Protocol Dextrose 500 mls @ 100 mls /hr 05/08/20 15:47 D5w IV ONCE PRN Adult Acute Hypog lycemia Prot Protocol Insulin Aspart 0 unit 05/08/20 21:00 05/08/20 21:31 Novolog SUBCUT Not Given BEDTIME SWATI Protocol Insulin Aspart 0 unit 05/08/20 18:00 05/09/20 08:28 Novolog SUBCUT Not Given TIDWM [facility] Protocol Lactulose 20 gm 05/08/20 14:15 Constulose PO DAILY PRN Constipation Levothyroxine Sodi um 125 mcg 05/09/20 09:00 05/09/20 09:00 Synthroid PO 125 mcg DAILY [facility] Administration Lidocaine HCl 1 applic 05/08/20 13:26 Lidocaine 2% Jel ly TOPICAL DAILY PRN TOPICAL Pain Lidocaine HCl 15 ml 05/08/20 13:26 Lidocaine 2% Vis cous MUCOUS MEM QID PRN MOUTH Pain Metoprolol Tartrat e 75 mg 05/08/20 18:00 05/08/20 17:35 Lopressor PO Not Given BID [facility] Morphine Sulfate 2 mg 05/08/20 12:30 05/09/20 02:17 Morphine IVP 2 mg Q4H PRN Administration SEVERE PAIN Naloxone HCl 0.1 mg 05/08/20 12:30 Narcan IVP Q2M PRN RESPIRATORY RATE < 8/MIN Non-Formulary Medi cation 1 each 05/09/20 09:00 Amino Acids-Prot ein Hydrolys [Pro- Stat Awc] PO DAILY [facility] Non-Formulary Medi cation 1 inh 05/09/20 09:00 Fluticasone Furo ate-Vilanterol [Br eo Ellipta] INHALATION DAILY [facility] Nystatin 1 applic 05/08/20 18:00 05/09/20 09:00 Nystatin Powder TOPICAL 1 applic BID SWATI Administration Olanzapine 5 mg 05/09/20 21:00 Zyprexa Zydis PO BEDTIME [facility] Ondansetron HCl 4 mg 05/08/20 12:30 Zofran IVP Q6H PRN NAUSEA AND VOMITI NG Oxycodone/Acetamin ophen 1 tab 05/08/20 13:26 Percocet 10-325 Mg PO Q4H PRN Pain Pantoprazole Sodiu m 40 mg 05/08/20 13:00 05/09/20 09:00 Protonix IVP 40 mg DAILY SWATI Administration Tramadol HCl 50 mg 05/08/20 13:26 Ultram PO Q8H PRN Pain Venlafaxine HCl 150 mg 05/09/20 09:00 Effexor Xr PO DAILY [facility] clarithromycin Allergy (Unknown, Verified 04/16/20 14:33) Unknown hydrocodone Allergy (Unknown, Verified 04/16/20 14:33) Unknown metformin Allergy (Unknown, Verified 04/16/20 14:33) Unknown sitagliptin [From Januvia] Allergy (Unknown, Verified 04/16/20 14:33) Unknown tetanus and diphtheria toxoids Allergy (Unknown, Verified 04/16/20 14:33) Unknown triamcinolone Allergy (Unknown, Verified 04/16/20 14:33) Unknown Vitals/I&O/Wt Last Vital Signs Temp 98.9 F 05/09/20 02:00 Pulse 102 H 05/09/20 09:48 Resp 18 05/09/20 09:48 BP 113/56 05/09/20 06:00 Pulse Ox 98 05/09/20 09:48 05/08/20 05/09/20 05/09/20 22:59 06:59 14:59 Intake Total 1296.367 / 1856.290 966.992 / 2823.282 Output Total 500 / 500 Balance 1296.367 / 1856.290 466.992 / 2323.282 Weight last 48 hrs Weight 233 lb Physical Exam Narrative: EXAM NARRATIVE: GENERAL: Patient is confused and some NECK: No jugular vein distension. HEENT: No cyanosis. No icterus. No pallor. HEART: Regular S1 and S2. No murmur, rub or gallop. LUNGS: Clear to auscultate bilaterally. ABDOMEN: Soft, nontender and nondistended. Positive bowel sounds. No guarding, rebound or tenderness. CENTRAL NERVOUS SYSTEM: Grossly nonfocal. EXTREMITIES: Left leg swollen wrapped with nonhealing foot ulcer nonpalpable pulses but temperature of foot is normal with ruborous appearance Urinary Catheter Management^: Patino: Cath Placed During This Visit: yes Reason for Continuing Indwelling Catheter: Accurate Measurement of Urinary Output in Critically Ill Patients Urinary Catheter Date of Insertion: 05/08/20 Urinary Catheter Time of Insertion: 13:00 Data : 05/09/20 03:57 05/09/20 03:57 Micro: Microbiology 05/08/20 08:50 Blood Culture - Preliminary Blood Gram positive cocci 05/08/20 08:42 Blood Culture - Preliminary Blood Gram positive cocci A&P Assessment and plan (1) Critical lower limb ischemia: We will continue to treat patient conservatively with wound care management as per surgery and our medicine colleagues. At the moment she is not a good candidate for invasive strategy due to very high risk for contrast-induced nephropathy and permanent renal damage. Nephrology is on board we will work with rest of our colleagues. Once creatinine is at the baseline we may can decide regarding attempt for revascularization and minimal contrast Status: Acute (2) Acute kidney injury: As per nephrology Status: Acute (3) Atrial fibrillation: Rate controlled continue med Status: Acute (4) Sepsis associated hypotension: Continue IV fluid and antibiotics Status: Acute Attestations Medical Necessity Statement*: Require continuation hospitalization for above defined care Coding Level of Care Code Established Pt Acute Shipping Assistant for Chg Fwd Patient Type Established History Expanded Problem Focused Exam Expanded Problem Focused Medical Decision Making Moderate Complexity Diagnoses Critical lower limb ischemia I99.8 Acute kidney injury N17.9 Atrial fibrillation I48.91 Sepsis associated hypotension A41.9; I95.9
--- NOTE | 2020-05-09 14:06 | PC.PT ---
PT note; nursing staff request hold PT evaluation again today due to low blood pressure ; will reattempt tomorrow
[2020-05-09 14:45] LABS: Glucose Point of Care 131 mg/dL (70-110)
[2020-05-09] MEDS: acetaminophen 325 mg Tablet 650 MG PO (15:27)
--- NOTE | 2020-05-09 15:32 | PC.NURSE ---
0800 numerous sores on left lower ext. with some eschar covered.
--- NOTE | 2020-05-09 15:54 | PC.NURSE ---
no preferred pharmacy d/t pt. being from [facility]
[2020-05-09 16:51] LABS: Glucose Point of Care 186 mg/dL (70-110)
[2020-05-09] MEDS: OLANZapine 5 mg ODT PO (20:52)
[2020-05-10] VITALS (93 sets, daily range): BP systolic 57–151; BP diastolic 22–74; PULSE 71–150; RESP 10–33; TEMP 36.7–37.1; O2SAT 86–100
[2020-05-10 00:37] LABS: Glucose Point of Care 136 mg/dL (70-110)
[2020-05-10] MEDS: linezolid premix 600 MG/300 ML PREMIX 300 MG IV ×2 (02:37→15:42)
[2020-05-10 04:27] LABS: Basophils % 0.2 %; Eosinophils # 0.7 10^3/uL (0.0-0.8); Eosinophils % 5.3 %; Hematocrit 26.5 % (37.0-47.0); Hemoglobin 8.3 g/dL (11.5-15.3); Lymphocytes # 2.2 10^3/uL (0.8-4.8); Lymphocytes % 16.5 %; Mean Corpuscular HGB Conc 31.3 g/dL (30.0-36.0); Mean Corpuscular Hemoglobin 29.2 pg (28.0-34.0); Mean Corpuscular Volume 93.3 fL (81-99); Monocytes # 1.3 10^3/uL (0.2-0.9); Monocytes % 9.6 %; Neutrophils # 8.95 10^3/uL (1.8-7.7); Nucleated Red Blood Cells % 0 %; Platelet Count 379 10^3/cmm (130-400); Red Blood Count 2.84 10^6/uL (4.1-5.3); Red Cell Distribution Width 17.6 % (12.1-15.1); White Blood Count 13.1 10^3/uL (4.0-10.0)
[2020-05-10 04:48] LABS: Creatine Phosphokinase 58 U/L (26-192)
[2020-05-10 04:49] LABS: Alanine Aminotransferase 13 U/L (0-33); Albumin Level 1.8 g/dL (3.5-5.2); Alkaline Phosphatase 111 IU/L (35-105); Aspartate Amino Transferase 14 U/L (0-32); Blood Urea Nitrogen 21 mg/dL (8-23); Calcium 7.2 mg/dL (8.5-10.5); Carbon Dioxide 18 mmol/L (22-29); Chloride 107 mmol/L (98-107); Globulin 3.3 g/dL (1.3-4.6); Glucose 148 mg/dL (65-115); Osmolality Calculated 279 mOsm/kg (285-295); Sodium 135 mmol/L (136-145); Total Bilirubin 0.2 mg/dL (0.15-1.2); Total Protein 5.1 g/dL (6.6-8.7)
--- NOTE | 2020-05-10 06:37 | P.ANESASSM_ITS ---
Pre-Anesthetic Assessment Pre-Anesthetic Assessment: Height/Weight: Height 1.6 m Weight 113.4 kg Temp Pulse Resp BP Pulse Ox 98.8 F 90 22 H 117/66 98 05/10/20 04:00 05/10/20 06:00 05/10/20 06:00 05/10/20 06:00 05/10/20 06:00 Preop Diagnosis: acute renal failure Proposed Procedure: Operation Date: 05/10/20 11:15 Proposed Procedures p Debridement(Left) - Surya Russo MD Familial anesthetic complications: none Last intake: NPO > 8 hrs Social: Social History: No tobacco Exam: Pre-Anes Outpt Exam: alert and oriented x 3 Additional Exam Findings (including area of procedure): Coarse breath sounds b/l Airway: Cervical ROM: WNL (Crick in neck, so favoring left side) MP: 3 Dentition: Other (no teeth) Pulmonary: Pulmonary: COPD and Sleep apnea CV/HEM: CV/HEM: Afib, Anemia, HTN and PVD Comments: 4 mcg/min of levo HR running around 100 for past two days per nursing staff : : Chronic renal Insufficiency Comments: PERRY GI: GI: GERD Metabolic: Metabolic: DM, Hyperlipidemia, Morbid obesity and Thyroid Anesthetic Plan: ASA status: 4 Anesthesia: General Risk of > 500 ml blood loss (7ml/kg in children): No Meds/Allergies Current Medications: Current Medications Generic Name Dose Route Start Last Admin Trade Name Freq PRN Reason Stop Dose Admin Acetaminophen 650 mg 05/08/20 12:30 05/09/20 15:27 Tylenol PO 650 mg Q6H PRN Administration MILD PAIN Atorvastatin Calci um 20 mg 05/09/20 09:00 05/09/20 08:58 Lipitor PO 20 mg DAILY SWATI Administration Calcium Carbonate 500 mg 05/09/20 09:00 05/09/20 08:58 Tums PO 500 mg DAILY SWATI Administration Collagenase 1 applic 05/09/20 09:00 05/09/20 14:52 Santyl TOPICAL Not Given DAILY SWATI Fluticasone Propio jovan 2 spray 05/09/20 09:00 05/09/20 08:59 Flonase INTRANASAL 2 spray DAILY SWATI Administration Heparin Sodium (Be ef Lung) 5,000 unit 05/08/20 13:00 05/10/20 00:14 Heparin SUBCUT Not Given Q12H SWATI Hydroxyzine Pamoat e 50 mg 05/08/20 13:51 05/09/20 02:31 Vistaril PO 50 mg QID PRN Administration Anxiety Norepinephrine Bit artrate 4 mg 254 mls @ 0 mls/h r 05/08/20 12:45 05/10/20 03:15 / Dextrose IV 5.41 mcg/min .Q0M SWATI 20.6 mls/hr Titration Protocol Per Protocol Piperacillin Sod/T azobactam 50 mls @ 12.5 mls /hr 05/08/20 21:30 05/09/20 20:58 Sod 3.375 gm/ So dium Chloride IV 12.5 mls/hr Q12H SWATI Administration Protocol Linezolid 600 mg in 300 mls @ 300 mls/hr 05/08/20 15:00 05/10/20 02:37 Zyvox Premix IV 300 mls/hr Q12H SWATI Administration Protocol Lactated Ringer's 1,000 mls @ 75 ml s/hr 05/09/20 10:15 05/09/20 23:02 Lactated Ringers IV 75 mls/hr .[id number] SWATI Administration Insulin Aspart 0 unit 05/08/20 21:00 05/09/20 17:19 Novolog SUBCUT 4 unit BEDTIME SWATI Administration Protocol Insulin Aspart 0 unit 05/08/20 18:00 05/09/20 17:22 Novolog SUBCUT 4 unit TIDWM SWATI Administration Protocol Levothyroxine Sodi um 125 mcg 05/09/20 09:00 05/09/20 09:00 Synthroid PO 125 mcg DAILY SWATI Administration Metoprolol Tartrat e 75 mg 05/08/20 18:00 05/09/20 17:13 Lopressor PO Not Given BID SWATI Morphine Sulfate 2 mg 05/08/20 12:30 05/09/20 02:17 Morphine IVP 2 mg Q4H PRN Administration SEVERE PAIN Nystatin 1 applic 05/08/20 18:00 05/09/20 17:24 Nystatin Powder TOPICAL 1 applic BID SWATI Administration Olanzapine 5 mg 05/09/20 21:00 05/09/20 20:52 Zyprexa Zydis PO 5 mg BEDTIME SWATI Administration Pantoprazole Sodiu m 40 mg 05/08/20 13:00 05/09/20 09:00 Protonix IVP 40 mg DAILY SWATI Administration Silver Sulfadiazin e 1 applic 05/09/20 11:00 05/09/20 17:25 Silvadene TOPICAL 1 applic BID SWATI Administration Additional Medication Information: Active Medications Generic Name Dose Route Start Last Admin Trade Name Freq PRN Reason Stop Dose Admin Acetaminophen 650 mg 05/08/20 12:30 Tylenol PO Q6H PRN MILD PAIN Acetaminophen 650 mg 05/08/20 13:26 Tylenol PO QID PRN Pain Albuterol/Ipratrop ium 3 ml 05/08/20 15:00 Duoneb INHALATION Q6H.RESPIRATORY P RN SHORTNESS OF NIECY TH Atorvastatin Calci um 20 mg 05/09/20 09:00 05/09/20 08:58 Lipitor PO 20 mg DAILY SWATI Administration Calcium Carbonate 500 mg 05/09/20 09:00 05/09/20 08:58 Tums PO 500 mg DAILY SWATI Administration Collagenase 1 applic 05/09/20 09:00 Santyl TOPICAL DAILY SWATI Dextrose 25 ml 05/08/20 15:47 D50w IVP ONCE PRN hypoglycemia prot ocol Protocol Dextrose 50 ml 05/08/20 15:47 D50w IVP PRN PRN hypoglycemia prot ocol Protocol Fluticasone Propio jovan 2 spray 05/09/20 09:00 05/09/20 08:59 Flonase INTRANASAL 2 spray DAILY SWATI Administration Glucagon 1 mg 05/08/20 15:47 Glucagen IM ONCE PRN Adult Acute Hypog lycemia Prot. Protocol Heparin Sodium (Be ef Lung) 5,000 unit 05/08/20 13:00 05/09/20 00:57 Heparin SUBCUT 5,000 unit Q12H SWATI Administration Hydroxyzine Pamoat e 50 mg 05/08/20 13:51 05/09/20 02:31 Vistaril PO 50 mg QID PRN Administration Anxiety Norepinephrine Bit artrate 4 mg 254 mls @ 0 mls/h r 05/08/20 12:45 05/09/20 05:06 / Dextrose IV 8 mcg/min .Q0M SWATI 30.5 mls/hr Administration Protocol Per Protocol Sodium Chloride 1,000 mls @ 75 ml s/hr 05/08/20 12:30 05/09/20 00:57 Sodium Chloride 0.9% IV 75 mls/hr .[id number] SWATI Administration Piperacillin Sod/T azobactam 50 mls @ 12.5 mls /hr 05/08/20 21:30 05/09/20 09:01 Sod 3.375 gm/ So dium Chloride IV 12.5 mls/hr Q12H [facility] Administration Protocol Linezolid 600 mg in 300 mls @ 300 mls/hr 05/08/20 15:00 05/09/20 02:17 Zyvox Premix IV 300 mls/hr Q12H [facility] Administration Protocol Dextrose 500 mls @ 100 mls /hr 05/08/20 15:47 D5w IV ONCE PRN Adult Acute Hypog lycemia Prot Protocol Insulin Aspart 0 unit 05/08/20 21:00 05/08/20 21:31 Novolog SUBCUT Not Given BEDTIME [facility] Protocol Insulin Aspart 0 unit 05/08/20 18:00 05/09/20 08:28 Novolog SUBCUT Not Given TIDWM [facility] Protocol Lactulose 20 gm 05/08/20 14:15 Constulose PO DAILY PRN Constipation Levothyroxine Sodi um 125 mcg 05/09/20 09:00 05/09/20 09:00 Synthroid PO 125 mcg DAILY [facility] Administration Lidocaine HCl 1 applic 05/08/20 13:26 Lidocaine 2% Jel ly TOPICAL DAILY PRN TOPICAL Pain Lidocaine HCl 15 ml 05/08/20 13:26 Lidocaine 2% Vis cous MUCOUS MEM QID PRN MOUTH Pain Metoprolol Tartrat e 75 mg 05/08/20 18:00 05/08/20 17:35 Lopressor PO Not Given BID [facility] Morphine Sulfate 2 mg 05/08/20 12:30 05/09/20 02:17 Morphine IVP 2 mg Q4H PRN Administration SEVERE PAIN Naloxone HCl 0.1 mg 05/08/20 12:30 Narcan IVP Q2M PRN RESPIRATORY RATE < 8/MIN Non-Formulary Medi cation 1 each 05/09/20 09:00 Amino Acids-Prot ein Hydrolys [Pro- Stat Awc] PO DAILY [facility] Non-Formulary Medi cation 1 inh 05/09/20 09:00 Fluticasone Furo ate-Vilanterol [Br eo Ellipta] INHALATION DAILY [facility] Nystatin 1 applic 05/08/20 18:00 05/09/20 09:00 Nystatin Powder TOPICAL 1 applic BID SWATI Administration Olanzapine 5 mg 05/09/20 21:00 Zyprexa Zydis PO BEDTIME SWATI Ondansetron HCl 4 mg 05/08/20 12:30 Zofran IVP Q6H PRN NAUSEA AND VOMITI NG Oxycodone/Acetamin ophen 1 tab 05/08/20 13:26 Percocet 10-325 Mg PO Q4H PRN Pain Pantoprazole Sodiu m 40 mg 05/08/20 13:00 05/09/20 09:00 Protonix IVP 40 mg DAILY SWATI Administration Tramadol HCl 50 mg 05/08/20 13:26 Ultram PO Q8H PRN Pain Venlafaxine HCl 150 mg 05/09/20 09:00 Effexor Xr PO DAILY SWATI clarithromycin Allergy (Unknown, Verified 04/16/20 14:33) Unknown hydrocodone Allergy (Unknown, Verified 04/16/20 14:33) Unknown metformin Allergy (Unknown, Verified 04/16/20 14:33) Unknown sitagliptin [From Januvia] Allergy (Unknown, Verified 04/16/20 14:33) Unknown tetanus and diphtheria toxoids Allergy (Unknown, Verified 04/16/20 14:33) Unknown triamcinolone Allergy (Unknown, Verified 04/16/20 14:33) Unknown PFSH Anesthesia PFSH: Medical History Chronic kidney disease, stage 3 COPD (chronic obstructive pulmonary disease) Critical lower limb ischemia Diabetic nephropathy Hypertension Hypothyroidism Leg ulcer, left PVD (peripheral vascular disease) Sleep apnea Type 2 diabetes mellitus Vascular dementia Surgical History History of bilateral knee arthroplasty S/P breast lumpectomy Family History Father Diabetes Hypertension Mother CAD (coronary artery disease) Hypertension Social History Smoking and tobacco status: never smoked Alcohol intake: never Household members: other Housing: Shelter Current gender identity: Female Additional social history: -[place] [facility] [place] Anesthesia CBC & Chem 7: 05/10/20 03:44 05/10/20 03:44 Other Labs: Laboratory Results - last 48 hr 05/08/20 05/08/20 05/08/20 08:42 08:42 08:42 WBC 16.0 H RBC 2.94 L Hgb 8.6 L Hct 26.7 L MCV 90.8 MCH 29.3 MCHC 32.2 RDW 17.1 H Plt Count 395 MPV 9.0 Neut % (Auto) 76.8 Lymph % (Auto) 12.8 Hall % (Auto) 6.8 Eos % (Auto) 2.8 Baso % (Auto) 0.3 Neut # (Auto) 12.31 H Lymph # (Auto) 2.1 Hall # (Auto) 1.1 H Eos # (Auto) 0.5 Baso # (Auto) 0.1 Nucleated RBC % (auto) 0 Nucleated RBCs # 0.0 PT 15.70 H INR 1.21 H Specimen Type Sample Site ABG pH ABG pCO2 ABG pO2 ABG HCO3 ABG Base Excess Ash Test Hematocrit Hgb O2 Saturation Carboxyhemoglobin Methemoglobin Total Hemoglobin O2 Delivery Device O2 Liters/Min Ems Coordinator ID Sodium 142 Potassium 3.5 Chloride 107 Carbon Dioxide 21 L Anion Gap 17.5 BUN 31 H Creatinine 5.7 H* GFR Calculation Not Reportable Glucose 97 POC Glucose Calculated Osmolality 291 Lactic Acid Uric Acid Calcium 7.5 L Phosphorus Magnesium Total Bilirubin 0.4 AST 26 ALT 16 Alkaline Phosphatase 152 H Creatine Kinase NT-Pro-B Natriuret Pep 07613 H Total Protein 5.7 L Albumin 2.2 L Globulin 3.5 TSH Urine Color Urine Appearance Urine pH Ur Specific [place] Urine Protein Urine Glucose (UA) Urine Ketones Urine Blood Urine Nitrate Urine Bilirubin Prot Sulfosalicylic Acd Urine Urobilinogen Ur Leukocyte Esterase Urine RBC Urine WBC Ur Eosinophil Smear Ur Squamous Epith Cells Ur Transition Epith Cell Ur Renal Epithelial Cell Calcium Oxalate Crystal Uric Acid Crystals Triple Phos Crystals Other Crystals Amorphous Sediment Urine Bacteria Hyaline Casts Fine Granular Casts Coarse Granular Casts RBC Casts Other Casts Urine Mucus Urine Trichomonas Urine Yeast Urine Sperm Ur Oval Fat Bodies Urine Eosinophils Ur Random Sodium Urine Creatinine 05/08/20 05/08/20 05/08/20 08:42 08:42 08:42 WBC RBC Hgb Hct MCV MCH MCHC RDW Plt Count MPV Neut % (Auto) Lymph % (Auto) Hall % (Auto) Eos % (Auto) Baso % (Auto) Neut # (Auto) Lymph # (Auto) Hall # (Auto) Eos # (Auto) Baso # (Auto) Nucleated RBC % (auto) Nucleated RBCs # PT INR Specimen Type Sample Site ABG pH ABG pCO2 ABG pO2 ABG HCO3 ABG Base Excess Ash Test Hematocrit Hgb O2 Saturation Carboxyhemoglobin Methemoglobin Total Hemoglobin O2 Delivery Device O2 Liters/Min Ems Coordinator ID Sodium Potassium Chloride Carbon Dioxide Anion Gap BUN Creatinine GFR Calculation Glucose POC Glucose Calculated Osmolality Lactic Acid 1.4 Uric Acid 10.4 H Calcium Phosphorus 5.8 H Magnesium 1.8 Total Bilirubin AST ALT Alkaline Phosphatase Creatine Kinase 212 H NT-Pro-B Natriuret Pep Total Protein Albumin Globulin TSH 3.92 Urine Color Urine Appearance Urine pH Ur Specific [place] Urine Protein Urine Glucose (UA) Urine Ketones Urine Blood Urine Nitrate Urine Bilirubin Prot Sulfosalicylic Acd Urine Urobilinogen Ur Leukocyte Esterase Urine RBC Urine WBC Ur Eosinophil Smear Ur Squamous Epith Cells Ur Transition Epith Cell Ur Renal Epithelial Cell Calcium Oxalate Crystal Uric Acid Crystals Triple Phos Crystals Other Crystals Amorphous Sediment Urine Bacteria Hyaline Casts Fine Granular Casts Coarse Granular Casts RBC Casts Other Casts Urine Mucus Urine Trichomonas Urine Yeast Urine Sperm Ur Oval Fat Bodies Urine Eosinophils Ur Random Sodium Urine Creatinine 05/08/20 05/08/20 05/08/20 09:25 10:15 13:10 WBC RBC Hgb Hct MCV MCH MCHC RDW Plt Count MPV Neut % (Auto) Lymph % (Auto) Hall % (Auto) Eos % (Auto) Baso % (Auto) Neut # (Auto) Lymph # (Auto) Hall # (Auto) Eos # (Auto) Baso # (Auto) Nucleated RBC % (auto) Nucleated RBCs # PT INR Specimen Type Arterial Sample Site Brachial, left ABG pH 7.38 ABG pCO2 32.6 L ABG pO2 118.0 H ABG HCO3 19.5 L ABG Base Excess -5.0 L Ash Test Pos Hematocrit 26.2 L Hgb O2 Saturation 96.2 Carboxyhemoglobin 0.1 L Methemoglobin 1.2 Total Hemoglobin 8.5 L O2 Delivery Device Nc O2 Liters/Min 2.5 Ems Coordinator ID [place] Sodium Potassium Chloride Carbon Dioxide Anion Gap BUN Creatinine GFR Calculation Glucose POC Glucose Calculated Osmolality Lactic Acid Uric Acid Calcium Phosphorus Magnesium Total Bilirubin AST ALT Alkaline Phosphatase Creatine Kinase NT-Pro-B Natriuret Pep Total Protein Albumin Globulin TSH Urine Color Yellow Cancelled Urine Appearance Clear Cancelled Urine pH 5 Cancelled Ur Specific [place] 1.025 Cancelled Urine Protein Neg Cancelled Urine Glucose (UA) Norm Cancelled Urine Ketones Negative Cancelled Urine Blood Neg Cancelled Urine Nitrate Negative Cancelled Urine Bilirubin 1+ H Cancelled Prot Sulfosalicylic Acd Cancelled Urine Urobilinogen Neg Cancelled Ur Leukocyte Esterase Negative Cancelled Urine RBC Cancelled Urine WBC Cancelled Ur Eosinophil Smear 0 Ur Squamous Epith Cells Cancelled Ur Transition Epith Cell Cancelled Ur Renal Epithelial Cell Cancelled Calcium Oxalate Crystal Cancelled Uric Acid Crystals Cancelled Triple Phos Crystals Cancelled Other Crystals Cancelled Amorphous Sediment Cancelled Urine Bacteria Cancelled Hyaline Casts Cancelled Fine Granular Casts Cancelled Coarse Granular Casts Cancelled RBC Casts Cancelled Other Casts Cancelled Urine Mucus Cancelled Urine Trichomonas Cancelled Urine Yeast Cancelled Urine Sperm Cancelled Ur Oval Fat Bodies Cancelled Urine Eosinophils No eosinophils seen Ur Random Sodium Urine Creatinine 05/08/20 05/08/20 05/08/20 13:10 17:21 21:30 WBC RBC Hgb Hct MCV MCH MCHC RDW Plt Count MPV Neut % (Auto) Lymph % (Auto) Hall % (Auto) Eos % (Auto) Baso % (Auto) Neut # (Auto) Lymph # (Auto) Hall # (Auto) Eos # (Auto) Baso # (Auto) Nucleated RBC % (auto) Nucleated RBCs # PT INR Specimen Type Sample Site ABG pH ABG pCO2 ABG pO2 ABG HCO3 ABG Base Excess Ash Test Hematocrit Hgb O2 Saturation Carboxyhemoglobin Methemoglobin Total Hemoglobin O2 Delivery Device O2 Liters/Min Ems Coordinator ID Sodium Potassium Chloride Carbon Dioxide Anion Gap BUN Creatinine GFR Calculation Glucose POC Glucose 136 106 Calculated Osmolality Lactic Acid Uric Acid Calcium Phosphorus Magnesium Total Bilirubin AST ALT Alkaline Phosphatase Creatine Kinase NT-Pro-B Natriuret Pep Total Protein Albumin Globulin TSH Urine Color Urine Appearance Urine pH Ur Specific [place] Urine Protein Urine Glucose (UA) Urine Ketones Urine Blood Urine Nitrate Urine Bilirubin Prot Sulfosalicylic Acd Urine Urobilinogen Ur Leukocyte Esterase Urine RBC Urine WBC Ur Eosinophil Smear Ur Squamous Epith Cells Ur Transition Epith Cell Ur Renal Epithelial Cell Calcium Oxalate Crystal Uric Acid Crystals Triple Phos Crystals Other Crystals Amorphous Sediment Urine Bacteria Hyaline Casts Fine Granular Casts Coarse Granular Casts RBC Casts Other Casts Urine Mucus Urine Trichomonas Urine Yeast Urine Sperm Ur Oval Fat Bodies Urine Eosinophils Ur Random Sodium 49 Urine Creatinine 191 05/09/20 05/09/20 05/09/20 03:57 03:57 03:57 WBC 17.3 H RBC 3.02 L Hgb 8.8 L Hct 26.9 L MCV 89.1 MCH 29.1 MCHC 32.7 RDW 17.2 H Plt Count 349 MPV 9.6 Neut % (Auto) 73.7 Lymph % (Auto) 13.0 Hall % (Auto) 8.7 Eos % (Auto) 3.9 Baso % (Auto) 0.2 Neut # (Auto) 12.72 H Lymph # (Auto) 2.2 Hall # (Auto) 1.5 H Eos # (Auto) 0.7 Baso # (Auto) 0.0 Nucleated RBC % (auto) 0 Nucleated RBCs # 0.0 PT 13.70 INR 1.02 Specimen Type Sample Site ABG pH ABG pCO2 ABG pO2 ABG HCO3 ABG Base Excess Ash Test Hematocrit Hgb O2 Saturation Carboxyhemoglobin Methemoglobin Total Hemoglobin O2 Delivery Device O2 Liters/Min Ems Coordinator ID Sodium 137 Potassium 3.2 L Chloride 107 Carbon Dioxide 18 L Anion Gap 15.2 BUN 27 H Creatinine 3.8 H GFR Calculation Not Reportable Glucose 126 H POC Glucose Calculated Osmolality 283 L Lactic Acid Uric Acid Calcium 7.2 L Phosphorus Magnesium Total Bilirubin 0.3 AST 22 ALT 17 Alkaline Phosphatase 131 H Creatine Kinase NT-Pro-B Natriuret Pep Total Protein 5.6 L Albumin 2.0 L Globulin 3.6 TSH Urine Color Urine Appearance Urine pH Ur Specific [place] Urine Protein Urine Glucose (UA) Urine Ketones Urine Blood Urine Nitrate Urine Bilirubin Prot Sulfosalicylic Acd Urine Urobilinogen Ur Leukocyte Esterase Urine RBC Urine WBC Ur Eosinophil Smear Ur Squamous Epith Cells Ur Transition Epith Cell Ur Renal Epithelial Cell Calcium Oxalate Crystal Uric Acid Crystals Triple Phos Crystals Other Crystals Amorphous Sediment Urine Bacteria Hyaline Casts Fine Granular Casts Coarse Granular Casts RBC Casts Other Casts Urine Mucus Urine Trichomonas Urine Yeast Urine Sperm Ur Oval Fat Bodies Urine Eosinophils Ur Random Sodium Urine Creatinine 05/09/20 05/09/20 05/09/20 07:31 14:34 16:40 WBC RBC Hgb Hct MCV MCH MCHC RDW Plt Count MPV Neut % (Auto) Lymph % (Auto) Hall % (Auto) Eos % (Auto) Baso % (Auto) Neut # (Auto) Lymph # (Auto) Hall # (Auto) Eos # (Auto) Baso # (Auto) Nucleated RBC % (auto) Nucleated RBCs # PT INR Specimen Type Sample Site ABG pH ABG pCO2 ABG pO2 ABG HCO3 ABG Base Excess Ash Test Hematocrit Hgb O2 Saturation Carboxyhemoglobin Methemoglobin Total Hemoglobin O2 Delivery Device O2 Liters/Min Ems Coordinator ID Sodium Potassium Chloride Carbon Dioxide Anion Gap BUN Creatinine GFR Calculation Glucose POC Glucose 122 131 186 Calculated Osmolality Lactic Acid Uric Acid Calcium Phosphorus Magnesium Total Bilirubin AST ALT Alkaline Phosphatase Creatine Kinase NT-Pro-B Natriuret Pep Total Protein Albumin Globulin TSH Urine Color Urine Appearance Urine pH Ur Specific [place] Urine Protein Urine Glucose (UA) Urine Ketones Urine Blood Urine Nitrate Urine Bilirubin Prot Sulfosalicylic Acd Urine Urobilinogen Ur Leukocyte Esterase Urine RBC Urine WBC Ur Eosinophil Smear Ur Squamous Epith Cells Ur Transition Epith Cell Ur Renal Epithelial Cell Calcium Oxalate Crystal Uric Acid Crystals Triple Phos Crystals Other Crystals Amorphous Sediment Urine Bacteria Hyaline Casts Fine Granular Casts Coarse Granular Casts RBC Casts Other Casts Urine Mucus Urine Trichomonas Urine Yeast Urine Sperm Ur Oval Fat Bodies Urine Eosinophils Ur Random Sodium Urine Creatinine 05/10/20 05/10/20 05/10/20 00:32 03:44 03:44 WBC 13.1 H RBC 2.84 L Hgb 8.3 L Hct 26.5 L MCV 93.3 MCH 29.2 MCHC 31.3 RDW 17.6 H Plt Count 379 MPV 9.0 Neut % (Auto) 68.0 Lymph % (Auto) 16.5 Hall % (Auto) 9.6 Eos % (Auto) 5.3 Baso % (Auto) 0.2 Neut # (Auto) 8.95 H Lymph # (Auto) 2.2 Hall # (Auto) 1.3 H Eos # (Auto) 0.7 Baso # (Auto) 0.0 Nucleated RBC % (auto) 0 Nucleated RBCs # 0.0 PT INR Specimen Type Sample Site ABG pH ABG pCO2 ABG pO2 ABG HCO3 ABG Base Excess Ash Test Hematocrit Hgb O2 Saturation Carboxyhemoglobin Methemoglobin Total Hemoglobin O2 Delivery Device O2 Liters/Min Ems Coordinator ID Sodium 135 L Potassium 3.0 L Chloride 107 Carbon Dioxide 18 L Anion Gap 13.0 BUN 21 Creatinine 2.1 H GFR Calculation Not Reportable Glucose 148 H POC Glucose 136 Calculated Osmolality 279 L Lactic Acid Uric Acid Calcium 7.2 L Phosphorus Magnesium Total Bilirubin 0.2 AST 14 ALT 13 Alkaline Phosphatase 111 H Creatine Kinase NT-Pro-B Natriuret Pep Total Protein 5.1 L Albumin 1.8 L Globulin 3.3 TSH Urine Color Urine Appearance Urine pH Ur Specific [place] Urine Protein Urine Glucose (UA) Urine Ketones Urine Blood Urine Nitrate Urine Bilirubin Prot Sulfosalicylic Acd Urine Urobilinogen Ur Leukocyte Esterase Urine RBC Urine WBC Ur Eosinophil Smear Ur Squamous Epith Cells Ur Transition Epith Cell Ur Renal Epithelial Cell Calcium Oxalate Crystal Uric Acid Crystals Triple Phos Crystals Other Crystals Amorphous Sediment Urine Bacteria Hyaline Casts Fine Granular Casts Coarse Granular Casts RBC Casts Other Casts Urine Mucus Urine Trichomonas Urine Yeast Urine Sperm Ur Oval Fat Bodies Urine Eosinophils Ur Random Sodium Urine Creatinine 05/10/20 03:44 WBC RBC Hgb Hct MCV MCH MCHC RDW Plt Count MPV Neut % (Auto) Lymph % (Auto) Hall % (Auto) Eos % (Auto) Baso % (Auto) Neut # (Auto) Lymph # (Auto) Hall # (Auto) Eos # (Auto) Baso # (Auto) Nucleated RBC % (auto) Nucleated RBCs # PT INR Specimen Type Sample Site ABG pH ABG pCO2 ABG pO2 ABG HCO3 ABG Base Excess Ash Test Hematocrit Hgb O2 Saturation Carboxyhemoglobin Methemoglobin Total Hemoglobin O2 Delivery Device O2 Liters/Min Ems Coordinator ID Sodium Potassium Chloride Carbon Dioxide Anion Gap BUN Creatinine GFR Calculation Glucose POC Glucose Calculated Osmolality Lactic Acid Uric Acid Calcium Phosphorus Magnesium Total Bilirubin AST ALT Alkaline Phosphatase Creatine Kinase 58 NT-Pro-B Natriuret Pep Total Protein Albumin Globulin TSH Urine Color Urine Appearance Urine pH Ur Specific [place] Urine Protein Urine Glucose (UA) Urine Ketones Urine Blood Urine Nitrate Urine Bilirubin Prot Sulfosalicylic Acd Urine Urobilinogen Ur Leukocyte Esterase Urine RBC Urine WBC Ur Eosinophil Smear Ur Squamous Epith Cells Ur Transition Epith Cell Ur Renal Epithelial Cell Calcium Oxalate Crystal Uric Acid Crystals Triple Phos Crystals Other Crystals Amorphous Sediment Urine Bacteria Hyaline Casts Fine Granular Casts Coarse Granular Casts RBC Casts Other Casts Urine Mucus Urine Trichomonas Urine Yeast Urine Sperm Ur Oval Fat Bodies Urine Eosinophils Ur Random Sodium Urine Creatinine Micro: Microbiology 05/08/20 08:50 Blood Culture - Preliminary Blood Gram positive cocci 05/08/20 08:42 Blood Culture - Preliminary Blood Gram positive cocci Cardiac Studies: No Data to Display
[2020-05-10 06:42] LABS: Magnesium 1.6 mg/dL (1.7-2.3); Phosphorus 2.5 mg/dL (2.5-4.5)
[2020-05-10] MEDS: potassium chloride ER 10 mEq Tablet 40 MEQ PO (07:00)
[2020-05-10] MEDS: sodium chloride 0.9% 1,000 ML 30 ML IV (07:00)
[2020-05-10 07:38] LABS: Glucose Point of Care 121 mg/dL (70-110)
--- NOTE | 2020-05-10 07:56 | P.PN_ITS ---
Subjective Subjective: Interval history: The patient says she is doing okay today, but her left leg still hurts. Vitals/I&O/Wt Last Vital Signs Temp 98.8 F 05/10/20 04:00 Pulse 88 05/10/20 07:30 Resp 16 05/10/20 07:30 BP 92/46 05/10/20 06:30 Pulse Ox 97 05/10/20 07:30 05/09/20 05/10/20 05/10/20 22:59 06:59 14:59 Intake Total 880 / 2673.50 1249.50 / 2673.50 437.207 / 437.207 Output Total 725 / 950 225 / 950 Balance 155 / 1723.50 1024.50 / 1723.50 437.207 / 437.207 Weight last 48 hrs Weight 250 lb 0.067 oz Weight 233 lb Physical Exam Narrative: EXAM NARRATIVE: Left lower extremity remains dressed. Urinary Catheter Management^: Patino: Cath Placed During This Visit: yes Reason for Continuing Indwelling Catheter: Accurate Measurement of Urinary Output in Critically Ill Patients Urinary Catheter Date of Insertion: 05/08/20 Urinary Catheter Time of Insertion: 13:00 Data : 05/10/20 03:44 05/10/20 03:44 Micro: Microbiology 05/08/20 08:50 Blood Culture - Preliminary Blood Gram positive cocci 05/08/20 08:42 Blood Culture - Preliminary Blood Gram positive cocci A&P Assessment and plan (1) Leg ulcer, left: Proceeding to the operating room today for further examination and planned debridement. Status: Acute (2) Cellulitis of left leg: Status: Acute Attestations Medical Necessity Statement*: See admitting service's notation. Coding Level of Care Code Acute Fresh Work Wrapper Layer for Darek Fwd Diagnoses Leg ulcer, left L97.929 Cellulitis of left leg L03.116
--- NOTE | 2020-05-10 08:30 | PM.PN ---
Subjective Subjective: Interval history: Hypotensive and remains on pressor support, decreasing leukocytosis, slight drop in Hg (8.8->8.3), improving renal function, had 550 mL urine output overnight. OR this AM. 2/4 bottles in initial set of blood cultures growing GPC. Seen after return from OR, alert though confused. Medications: Reviewed: Yes Medication Review Details: Active Medications Generic Name Dose Route Start Last Admin Trade Name Freq PRN Reason Stop Dose Admin Acetaminophen 650 mg 05/08/20 12:30 05/09/20 15:27 Tylenol PO 650 mg Q6H PRN Administration MILD PAIN Acetaminophen 650 mg 05/08/20 13:26 Tylenol PO QID PRN Pain Albuterol Sulfate 2.5 mg 05/10/20 06:40 Albuterol INHALATION ONCE PRN WHEEZING Albuterol/Ipratrop ium 3 ml 05/08/20 15:00 Duoneb INHALATION Q6H.RESPIRATORY P RN SHORTNESS OF NIECY TH Atorvastatin Calci um 20 mg 05/09/20 09:00 05/09/20 08:58 Lipitor PO 20 mg DAILY SWATI Administration Calcium Carbonate 500 mg 05/09/20 09:00 05/09/20 08:58 Tums PO 500 mg DAILY SWATI Administration Collagenase 1 applic 05/09/20 09:00 05/09/20 14:52 Santyl TOPICAL Not Given DAILY SWATI Dextrose 25 ml 05/08/20 15:47 D50w IVP ONCE PRN hypoglycemia prot ocol Protocol Dextrose 50 ml 05/08/20 15:47 D50w IVP PRN PRN hypoglycemia prot ocol Protocol Fentanyl 50 mcg 05/10/20 06:40 Sublimaze IVP Q10M PRN Preop Pain Fluticasone Propio jovan 2 spray 05/09/20 09:00 05/09/20 08:59 Flonase INTRANASAL 2 spray DAILY SWATI Administration Glucagon 1 mg 05/08/20 15:47 Glucagen IM ONCE PRN Adult Acute Hypog lycemia Prot. Protocol Heparin Sodium (Be ef Lung) 5,000 unit 05/08/20 13:00 05/10/20 00:14 Heparin SUBCUT Not Given Q12H SWATI Hydroxyzine Pamoat e 50 mg 05/08/20 13:51 05/09/20 02:31 Vistaril PO 50 mg QID PRN Administration Anxiety Norepinephrine Bit artrate 4 mg 254 mls @ 0 mls/h r 05/08/20 12:45 05/10/20 07:29 / Dextrose IV 4 mcg/min .Q0M SWATI 15.2 mls/hr Titration Protocol Per Protocol Piperacillin Sod/T azobactam 50 mls @ 12.5 mls /hr 05/08/20 21:30 05/10/20 07:28 Sod 3.375 gm/ So dium Chloride IV Infused Q12H SWATI Infusion Protocol Linezolid 600 mg in 300 mls @ 300 mls/hr 05/08/20 15:00 05/10/20 07:28 Zyvox Premix IV Infused Q12H SWATI Infusion Protocol Dextrose 500 mls @ 100 mls /hr 05/08/20 15:47 D5w IV ONCE PRN Adult Acute Hypog lycemia Prot Protocol Lactated Ringer's 1,000 mls @ 75 ml s/hr 05/09/20 10:15 05/09/20 23:02 Lactated Ringers IV 75 mls/hr .[id number] SWATI Administration Sodium Chloride 1,000 mls @ 30 ml s/hr 05/10/20 06:45 05/10/20 07:00 Sodium Chloride 0.9% IV 05/11/20 06:44 30 mls/hr .Q24H SWATI Administration Insulin Aspart 0 unit 05/08/20 21:00 05/09/20 17:19 Novolog SUBCUT 4 unit BEDTIME SWATI Administration Protocol Insulin Aspart 0 unit 05/08/20 18:00 05/09/20 17:22 Novolog SUBCUT 4 unit TIDWM SWATI Administration Protocol Ipratropium Bromid e 0.5 mg 05/10/20 06:40 Atrovent Neb INHALATION ONCE PRN WHEEZING Lactulose 20 gm 05/08/20 14:15 Constulose PO DAILY PRN Constipation Levothyroxine Sodi um 125 mcg 05/09/20 09:00 05/09/20 09:00 Synthroid PO 125 mcg DAILY SWATI Administration Lidocaine HCl 1 applic 05/08/20 13:26 Lidocaine 2% Jel ly TOPICAL DAILY PRN TOPICAL Pain Lidocaine HCl 15 ml 05/08/20 13:26 Lidocaine 2% Vis cous MUCOUS MEM QID PRN MOUTH Pain Metoprolol Tartrat e 75 mg 05/08/20 18:00 05/09/20 17:13 Lopressor PO Not Given BID SWATI Morphine Sulfate 2 mg 05/08/20 12:30 05/09/20 02:17 Morphine IVP 2 mg Q4H PRN Administration SEVERE PAIN Naloxone HCl 0.1 mg 05/08/20 12:30 Narcan IVP Q2M PRN RESPIRATORY RATE < 8/MIN Non-Formulary Medi cation 1 each 05/09/20 09:00 Amino Acids-Prot ein Hydrolys [Pro- Stat Awc] PO DAILY SWATI Non-Formulary Medi cation 1 inh 05/09/20 09:00 Fluticasone Furo ate-Vilanterol [Br eo Ellipta] INHALATION DAILY SWATI Nystatin 1 applic 05/08/20 18:00 05/09/20 17:24 Nystatin Powder TOPICAL 1 applic BID SWATI Administration Olanzapine 5 mg 05/09/20 21:00 05/09/20 20:52 Zyprexa Zydis PO 5 mg BEDTIME SWATI Administration Ondansetron HCl 4 mg 05/08/20 12:30 Zofran IVP Q6H PRN NAUSEA AND VOMITI NG Ondansetron HCl 4 mg 05/10/20 06:40 Zofran IVP Q5M PRN NAUSEA AND VOMITI NG Oxycodone/Acetamin ophen 1 tab 05/08/20 13:26 Percocet 10-325 Mg PO Q4H PRN Pain Pantoprazole Sodiu m 40 mg 05/08/20 13:00 05/09/20 09:00 Protonix IVP 40 mg DAILY SWATI Administration Silver Sulfadiazin e 1 applic 05/09/20 11:00 05/09/20 17:25 Silvadene TOPICAL 1 applic BID SWATI Administration Tramadol HCl 50 mg 05/08/20 13:26 Ultram PO Q8H PRN Pain Venlafaxine HCl 150 mg 05/09/20 09:00 Effexor Xr PO DAILY [facility] clarithromycin Allergy (Unknown, Verified 04/16/20 14:33) Unknown hydrocodone Allergy (Unknown, Verified 04/16/20 14:33) Unknown metformin Allergy (Unknown, Verified 04/16/20 14:33) Unknown sitagliptin [From Januvia] Allergy (Unknown, Verified 04/16/20 14:33) Unknown tetanus and diphtheria toxoids Allergy (Unknown, Verified 04/16/20 14:33) Unknown triamcinolone Allergy (Unknown, Verified 04/16/20 14:33) Unknown Vitals/I&O/Wt Last Vital Signs Temp 98.8 F 05/10/20 04:00 Pulse 88 05/10/20 07:30 Resp 16 05/10/20 07:30 BP 92/46 05/10/20 06:30 Pulse Ox 97 05/10/20 07:30 05/09/20 05/10/20 05/10/20 22:59 06:59 14:59 Intake Total 880 / 1424 1249.50 / 2673.50 437.207 / 437.207 Output Total 725 / 725 225 / 950 Balance 155 / 699 1024.50 / 1723.50 437.207 / 437.207 Weight last 48 hrs Weight 113.4 kg Physical Exam Const: COMMON NORMALS: no acute distress and alert GENERAL APPEARANCE: cooperative and comfortable NUTRITIONAL APPEARANCE: obese morbidly obese ORIENTATION/CONSCIOUSNESS: Yes awake and Yes confused OTHER: -fatigues easily HENMT: COMMON NORMALS: normocephalic, atraumatic, hearing grossly normal bilaterally and moist oral mucous membranes HEAD & SCALP: normocephalic and atraumatic Eye: COMMON NORMALS: Equal, round and reactive pupils present, EOMs intact bilaterally and conjunctivae normal CONJUNCTIVA: Yes conjunctivae normal PUPIL: Yes Equal, round and reactive pupils present Neck/C-Spine: COMMON NORMALS: full ROM GENERAL: Yes normal visual inspection and Yes trachea midline Resp: COMMON NORMALS: normal respiratory effort, No retractions and No use of accessory muscles EFFORT & INSPECTION: Yes symmetric chest movement and No tachypneic AUSCULTATION: wheezes and diminished lung sounds Cardio: COMMON NORMALS: regular rhythm, S1 normal heart sound present, S2 normal heart sound present and No murmurs present (Cardio) RATE: tachycardic (intermittently) RHYTHM: regular rhythm HEART SOUNDS: S1 normal heart sound present and S2 normal heart sound present GI: COMMON NORMALS: Normal to inspection, nondistended, normoactive bowel sounds present, Soft to palpation and non-tender INSPECTION: Yes central obesity PALPATION: Yes Soft to palpation : BLADDER/KIDNEY EXAM: Yes catheter in place Catheter type (Female): urethral Extremity: COMMON NORMALS: normal to inspection, full ROM and no clubbing, cyanosis or edema; negative for no pedal edema NARRATIVE EXTREMITY EXAM: -chronic lymphedema Neuro: COMMON NORMALS: no focal motor deficits and no sensory deficits noted SENSORIUM/ORIENTATION: Yes alert Psych: COMMON NORMALS: mental status grossly normal, Normal thought process present, cooperative, normal affect and speech normal SPEECH: Yes normal speech THOUGHT PROCESS: Normal thought process present Skin: NARRATIVE SKIN EXAM: -LLE: clean dressing in place -excoriation on bilateral gluteal area with some discrete open areas bilaterally (present on admission) Urinary Catheter Management^: Patino: Cath Placed During This Visit: yes Reason for Continuing Indwelling Catheter: Accurate Measurement of Urinary Output in Critically Ill Patients Urinary Catheter Date of Insertion: 05/08/20 Urinary Catheter Time of Insertion: 13:00 Data : 05/10/20 03:44 05/10/20 16:00 Micro: Microbiology 05/08/20 08:50 Blood Culture - Preliminary Blood Gram positive cocci 05/08/20 08:42 Blood Culture - Preliminary Blood Gram positive cocci A&P Assessment and plan (1) Sepsis: -Also noted during previous admission, at that time secondary to UTI with urine cultures growing ESBL E. coli. Treated with carbapems. This time appears to be septic secondary to LLE cellulitis with noted purulent foul-smelling drainage, necrosis on wound bed. -Surgery consult by Dr. Russo appreciated; OR today for debridement -remains on pressor support and on IV fluid hydration. Wean off pressor support as tolerated -improving leukocytosis with neutrophilic predominance; continue to trend WBC -afebrile x 24 hrs, lactate-1.4 -hypotensive, heart rate in the 90-100 range. Continue to monitor vital signs closely -Urinalysis negative -Blood cultures: 2/4 bottles positive for GPC; repeat set pending -Imaging negative for acute infection -tested for COVID-19 during last admission, negative Status: Acute Qualifiers: Acute respiratory failure type: unspecified Sepsis acute organ dysfunction status: with acute organ dysfunction Sepsis type: sepsis due to unspecified organism Severe sepsis acute organ dysfunction type: acute respiratory failure Severe sepsis shock status: with septic shock Qualified Code(s): A41.9 - Sepsis, unspecified organism; R65.21 - Severe sepsis with septic shock; J96.00 - Acute respiratory failure, unspecified whether with hypoxia or hypercapnia (2) Sepsis associated hypotension: -As noted above Status: Acute (3) Critical lower limb ischemia: -Noted to have diminished pulses in the left lower extremity in addition to, increased drainage from chronic ulcers -Arterial studies suggestive of tibial arteriopathy -Consult by Dr. Alejandre appreciated. Patient at high risk for contrast-induced nephropathy so we will continue conservative management at this time Status: Acute (4) Acute metabolic encephalopathy: -Noted LOC at SN[facility] -Seems to be back to her baseline -CT head does not show any acute findings -Strict fall precautions, reorient as needed -Does have vascular dementia at baseline Status: Acute (5) Acute kidney injury: -PERRY on CKD stage III; baseline Cr appears to be 1-1.4 though has been as high as 5.7 -Likely multifactorial given recent antibiotic use, dehydration -d/c IV fluid hydration as noted improving renal function, continue to monitor -HONORIO inhibitor, diuretics on hold -Renally dose meds, avoid nephrotoxins -Nephrology consult appreciated -Has Patino catheter in place, continue to monitor urine output -CPK-212, BNP-24,925, elevated uric acid-10.2; CPK normalized (58) -monitor for fluid overload with continued IVF; Echo (01/2020)-EF=55% Status: Acute (6) Cellulitis: -On IV Zosyn and Zyvox -Noted leukocytosis, low-grade temp -Blood cultures: 2/4 bottles positive for GPC; repeat set pending -significantly worse compared to most recent admission, surgical debridement today Status: Acute Qualifiers: Laterality: left Site of cellulitis: extremity Site of cellulitis of extremity: lower extremity Qualified Code(s): L03.116 - Cellulitis of left lower limb (7) Peripheral vascular disease: -Peripheral vascular disease with bilateral LE ulcers; wound care as needed, elevation as tolerated. Recent CTA aorta with runoff. Has been following up with Dr. Peguero at [facility] Status: Chronic (8) Bilateral leg ulcer: -Follows up with wound care clinic, continue wound care Status: Chronic Qualifiers: Non-pressure ulcer stage: unspecified non-pressure ulcer stage Qualified Code(s): L97.919 - Non-pressure chronic ulcer of unspecified part of right lower leg with unspecified severity; L97.929 - Non-pressure chronic ulcer of unspecified part of left lower leg with unspecified severity (9) Acute on chronic anemia: -Has acute on chronic normocytic anemia -Baseline hemoglobin appears to be 10-11 -Continue to monitor H&H; stable currently -Likely multifactorial part of which is secondary to underlying chronic kidney disease -Transfuse blood products as needed Status: Acute (10) Chronic kidney disease, stage 3: Status: Chronic (11) Hypertension: -antihypertensives on hold due to hypotension Status: Chronic Qualifiers: Hypertension type: essential hypertension Qualified Code(s): I10 - Essential (primary) hypertension (12) COPD (chronic obstructive pulmonary disease): -supplemental oxygen as needed -no acute exacerbation currently -required intubation during last admission -continue to monitor respiratory status Status: Chronic Qualifiers: COPD type: emphysema Emphysema type: unspecified Qualified Code(s): J43.9 - Emphysema, unspecified (13) Vascular dementia: Status: Chronic Qualifiers: Dementia behavioral disturbance: with behavioral disturbance Qualified Code(s): F01.51 - Vascular dementia with behavioral disturbance (14) Type 2 diabetes mellitus: -last A1c-6.6 -Accucheks, ISS, hypoglycemia precautions -hold oral hypoglycemic agents -DM complicated by nephropathy, peripheral vascular disease, neuropathy Status: Chronic Qualifiers: Diabetes mellitus complication status: with other specified complication Diabetes mellitus mcfp insulin use: without terminal operations supervisor use Qualified Code(s): E11.69 - Type 2 diabetes mellitus with other specified complication (15) Hypothyroidism: -on levothyroxine -TSH wnl Status: Chronic Qualifiers: Hypothyroidism type: unspecified Qualified Code(s): E03.9 - Hypothyroidism, unspecified Additional A&P Information -GERD; on PPI -Morbid obesity: BMI-44 kg/m2 though overall has quite poor nutrition status as reflected by hypoalbuminemia which is contributing to lymphedema. May need albumin in light of hypotension -large hiatal hernia -Dyslipidemia; on statin -Chronic pain; on narcotics -Gram positive bacteremia secondary to cellulitis and acutely infected LLE wounds -consistent carb diet -GI ppx with PPI -DVT ppx with heparin -Dispo: came from [facility] [place] [place] would like alternative facility ([facility]), case management consulted -Code status: FULL code -ICU care due to acute renal failure, acute metabolic encephalopathy, sepsis with need for pressor support Attestations Medical Necessity Statement*: Patient requires hospitalization for continued management of acute renal impairment, infected LLE wounds pending surgical debridement and on IV antibiotics due to sepsis. Time Spent in Patient Care: 16 - 35 minutes (>than 50% of time spent in counselling and/or direct pt care on unit). Coding Level of Care Code Acute Position Classification Manager for Chg Fwd Exam Comprehensive Diagnoses Sepsis A41.9; R65.21; J96.00 Acute respiratory failure type: unspecified Sepsis acute organ dysfunction status: with acute organ dysfunction Sepsis type: sepsis due to unspecified organism Severe sepsis acute organ dysfunction type: acute respiratory failure Severe sepsis shock status: with septic shock Sepsis associated hypotension A41.9; I95.9 Critical lower limb ischemia I99.8 Acute metabolic encephalopathy G93.41 Acute kidney injury N17.9 Cellulitis L03.116 Laterality: left Site of cellulitis: extremity Site of cellulitis of extremity: lower extremity Peripheral vascular disease I73.9 Bilateral leg ulcer L97.919; L97.929 Non-pressure ulcer stage: unspecified non-pressure ulcer stage Acute on chronic anemia D64.9 Chronic kidney disease, stage 3 N18.3 Hypertension I10 Hypertension type: essential hypertension COPD (chronic obstructive pulmonary disease) J43.9 COPD type: emphysema Emphysema type: unspecified Vascular dementia F01.51 Dementia behavioral disturbance: with behavioral disturbance Type 2 diabetes mellitus E11.69 Diabetes mellitus complication status: with other specified complication Diabetes mellitus terminal operations supervisor insulin use: without mcfp use Hypothyroidism E03.9 Hypothyroidism type: unspecified
[2020-05-10] MEDS: silver sulfadiazine cream 1% 50 gm 1 APPLIC TOPICAL (08:38)
--- NOTE | 2020-05-10 08:42 | PM.OP ---
Operative Report Date of procedure: May 10, 2020 Pre-op Diagnosis: Multiple eschars on left lower leg. Post-op diagnosis: same Procedure Done: Debridement of 250 cm? of eschar/nonviable tissue (skin and subcutaneous tissue) from the left lower leg. Pathology: none sent Surgeon: Surya Russo Anesthesia: MAC Estimated blood loss (mL): 10 Complications: None. Condition: stable Disposition: ICU Procedure: The patient was brought to the operating room and was placed in a modified right lateral decubitus position on the operating room table. A monitored anesthetic was induced. The left lower extremity was prepped and draped in a sterile fashion Much of the patient's eschar tissue on the left lower extremity had softened up and actually sloughed off after being dressed with Silvadene yesterday. This left a remaining thick black eschar on the bottom of the foot and another area around the calcaneus (the calcaneus is already partially exposed), in addition to some scattered areas on the posterior aspect of the left lower leg. The majority of the eschar appearing tissue on the back of the leg, however, had softened up and was easily brushed off with just a dry sponge. 1% lidocaine with 1 to 100,000 parts epinephrine was used for local anesthetic. The 25 cm? area on the bottom of the foot was debrided sharply and the entire firm black eschar was removed. The 50 cm? area around the calcaneus was debrided in a similar fashion. Finally, the 175 cm? area on the back of the leg was sharply debrided. Again, much of this eschar had softened up and was easily sharply debrided into the subcutaneous layer. There were some firm areas of eschar right around the periphery which were also removed. The wounds were irrigated and then were covered again and Silvadene. A nonstick, absorptive circumferential dressing was then applied. The patient was taken back to the intensive care unit in stable condition postoperatively.
--- NOTE | 2020-05-10 10:31 | ANE.PACU2 ---
Inpatient post-anesthesia follow up: Airway intact: Yes Vital signs: Temperature 98.6 F Pulse Rate [Apical ] 118 Pulse Rate 104 Respiratory Rate 27 Blood Pressure [Le ft Arm] 72/46 Blood Pressure 100/60 Pulse Oximetry 98 Oxygen Delivery Me thod Simple Mask Oxygen Flow Rate 10 Fraction of Inspir ed Oxygen Hydration adequate: Yes Nausea and vomiting: No Pain level: 4 Mental status: Baseline
[2020-05-10] MEDS: magnesium sulfate premix 2 GM/50 ML PIGGYBACK IV (10:34)
[2020-05-10] MEDS: venlafaxine ER (24HR) 150 mg Capsule PO (10:34)
[2020-05-10] MEDS: piperacillin-tazobactam 3.375 GM in sodium chloride 0.9% (plus) 50 ML IV ×2 (10:35→17:50)
--- NOTE | 2020-05-10 10:47 | PM.PN ---
Subjective Subjective: Interval history: Remains unwell, on pressure support. Good UO 950mL. S/p debridement in the OR today. No uremic Sx. Groggy but arousable. Minimal edema in the other limbs and she is no breathless at rest Medications: Reviewed: Yes Medication Review Details: Active Medications Generic Name Dose Route Start Last Admin Trade Name Freq PRN Reason Stop Dose Admin Acetaminophen 650 mg 05/08/20 12:30 05/09/20 15:27 Tylenol PO 650 mg Q6H PRN Administration MILD PAIN Acetaminophen 650 mg 05/08/20 13:26 Tylenol PO QID PRN Pain Albuterol Sulfate 2.5 mg 05/10/20 06:40 Albuterol INHALATION ONCE PRN WHEEZING Albuterol/Ipratrop ium 3 ml 05/08/20 15:00 Duoneb INHALATION Q6H.RESPIRATORY P RN SHORTNESS OF NIECY TH Atorvastatin Calci um 20 mg 05/09/20 09:00 05/09/20 08:58 Lipitor PO 20 mg DAILY SWATI Administration Calcium Carbonate 500 mg 05/09/20 09:00 05/09/20 08:58 Tums PO 500 mg DAILY SWATI Administration Collagenase 1 applic 05/09/20 09:00 05/09/20 14:52 Santyl TOPICAL Not Given DAILY SWATI Dextrose 25 ml 05/08/20 15:47 D50w IVP ONCE PRN hypoglycemia prot ocol Protocol Dextrose 50 ml 05/08/20 15:47 D50w IVP PRN PRN hypoglycemia prot ocol Protocol Fentanyl 50 mcg 05/10/20 06:40 Sublimaze IVP Q10M PRN Preop Pain Fluticasone Propio jovan 2 spray 05/09/20 09:00 05/09/20 08:59 Flonase INTRANASAL 2 spray DAILY SWATI Administration Glucagon 1 mg 05/08/20 15:47 Glucagen IM ONCE PRN Adult Acute Hypog lycemia Prot. Protocol Heparin Sodium (Be ef Lung) 5,000 unit 05/08/20 13:00 05/10/20 00:14 Heparin SUBCUT Not Given Q12H SWATI Hydroxyzine Pamoat e 50 mg 05/08/20 13:51 05/09/20 02:31 Vistaril PO 50 mg QID PRN Administration Anxiety Norepinephrine Bit artrate 4 mg 254 mls @ 0 mls/h r 05/08/20 12:45 05/10/20 07:29 / Dextrose IV 4 mcg/min .Q0M SWATI 15.2 mls/hr Titration Protocol Per Protocol Piperacillin Sod/T azobactam 50 mls @ 12.5 mls /hr 05/08/20 21:30 05/10/20 07:28 Sod 3.375 gm/ So dium Chloride IV Infused Q12H SWATI Infusion Protocol Linezolid 600 mg in 300 mls @ 300 mls/hr 05/08/20 15:00 05/10/20 07:28 Zyvox Premix IV Infused Q12H SWATI Infusion Protocol Dextrose 500 mls @ 100 mls /hr 05/08/20 15:47 D5w IV ONCE PRN Adult Acute Hypog lycemia Prot Protocol Lactated Ringer's 1,000 mls @ 75 ml s/hr 05/09/20 10:15 05/09/20 23:02 Lactated Ringers IV 75 mls/hr .[id number] SWATI Administration Sodium Chloride 1,000 mls @ 30 ml s/hr 05/10/20 06:45 05/10/20 07:00 Sodium Chloride 0.9% IV 05/11/20 06:44 30 mls/hr .Q24H SWATI Administration Insulin Aspart 0 unit 05/08/20 21:00 05/09/20 17:19 Novolog SUBCUT 4 unit BEDTIME SWATI Administration Protocol Insulin Aspart 0 unit 05/08/20 18:00 05/09/20 17:22 Novolog SUBCUT 4 unit TIDWM SWATI Administration Protocol Ipratropium Bromid e 0.5 mg 05/10/20 06:40 Atrovent Neb INHALATION ONCE PRN WHEEZING Lactulose 20 gm 05/08/20 14:15 Constulose PO DAILY PRN Constipation Levothyroxine Sodi um 125 mcg 05/09/20 09:00 05/09/20 09:00 Synthroid PO 125 mcg DAILY SWATI Administration Lidocaine HCl 1 applic 05/08/20 13:26 Lidocaine 2% Jel ly TOPICAL DAILY PRN TOPICAL Pain Lidocaine HCl 15 ml 05/08/20 13:26 Lidocaine 2% Vis cous MUCOUS MEM QID PRN MOUTH Pain Metoprolol Tartrat e 75 mg 05/08/20 18:00 05/09/20 17:13 Lopressor PO Not Given BID SWATI Morphine Sulfate 2 mg 05/08/20 12:30 05/09/20 02:17 Morphine IVP 2 mg Q4H PRN Administration SEVERE PAIN Naloxone HCl 0.1 mg 05/08/20 12:30 Narcan IVP Q2M PRN RESPIRATORY RATE < 8/MIN Non-Formulary Medi cation 1 each 05/09/20 09:00 Amino Acids-Prot ein Hydrolys [Pro- Stat Awc] PO DAILY SWATI Non-Formulary Medi cation 1 inh 05/09/20 09:00 Fluticasone Furo ate-Vilanterol [Br eo Ellipta] INHALATION DAILY [facility] Nystatin 1 applic 05/08/20 18:00 05/09/20 17:24 Nystatin Powder TOPICAL 1 applic BID SWATI Administration Olanzapine 5 mg 05/09/20 21:00 05/09/20 20:52 Zyprexa Zydis PO 5 mg BEDTIME SWATI Administration Ondansetron HCl 4 mg 05/08/20 12:30 Zofran IVP Q6H PRN NAUSEA AND VOMITI NG Ondansetron HCl 4 mg 05/10/20 06:40 Zofran IVP Q5M PRN NAUSEA AND VOMITI NG Oxycodone/Acetamin ophen 1 tab 05/08/20 13:26 Percocet 10-325 Mg PO Q4H PRN Pain Pantoprazole Sodiu m 40 mg 05/08/20 13:00 05/09/20 09:00 Protonix IVP 40 mg DAILY [facility] Administration Silver Sulfadiazin e 1 applic 05/09/20 11:00 05/09/20 17:25 Silvadene TOPICAL 1 applic BID SWATI Administration Tramadol HCl 50 mg 05/08/20 13:26 Ultram PO Q8H PRN Pain Venlafaxine HCl 150 mg 05/09/20 09:00 Effexor Xr PO DAILY SWATI clarithromycin Allergy (Unknown, Verified 04/16/20 14:33) Unknown hydrocodone Allergy (Unknown, Verified 04/16/20 14:33) Unknown metformin Allergy (Unknown, Verified 04/16/20 14:33) Unknown sitagliptin [From Januvia] Allergy (Unknown, Verified 04/16/20 14:33) Unknown tetanus and diphtheria toxoids Allergy (Unknown, Verified 04/16/20 14:33) Unknown triamcinolone Allergy (Unknown, Verified 04/16/20 14:33) Unknown Vitals/I&O/Wt Last Vital Signs Temp 98.6 F 05/10/20 09:00 Pulse 104 H 05/10/20 09:09 Resp 27 H 05/10/20 09:00 BP 100/60 05/10/20 09:09 Pulse Ox 98 05/10/20 09:09 05/09/20 05/10/20 05/10/20 22:59 06:59 14:59 Intake Total 880 / 1424 1249.50 / 2673.50 1564.820 / 1564.820 Output Total 725 / 725 225 / 950 25 / 25 Balance 155 / 699 1024.50 / 1723.50 1539.820 / 1539.820 Weight last 48 hrs Weight 113.4 kg Physical Exam Narrative: EXAM NARRATIVE: Constitutional: Awake, comfortable, yelling when moved HEENT: Wet mucosa, no jvp, non icteric Lungs: Bilaterally diminished but clear without discernible wheeze or rales in all lung zones CVS: S1 S2, no murmurs Abdo: Soft, BS ok Ext 4: Minimal edema, peripheral perfusion with no cyanosis. LE extremity with cellulitic changes Neurological: Grossly non-focal Patient seen and examined via telemedicine, with the assistance of the bedside RN Urinary Catheter Management^: Patino: Cath Placed During This Visit: yes Reason for Continuing Indwelling Catheter: Accurate Measurement of Urinary Output in Critically Ill Patients Urinary Catheter Date of Insertion: 05/08/20 Urinary Catheter Time of Insertion: 13:00 Data : 05/10/20 03:44 05/10/20 03:44 Micro: Microbiology 05/10/20 09:41 Blood Culture - Preliminary Blood SPECIMEN COLLECTED 05/10/20 09:40 Blood Culture - Preliminary Blood SPECIMEN COLLECTED 05/08/20 08:50 Blood Culture - Preliminary Blood Gram positive cocci 05/08/20 08:42 Blood Culture - Preliminary Blood Gram positive cocci A&P Additional A&P Information 1. Acute renal failure. Renal failure recovering nicely Given the severe hypotension that she is presenting with, and likely severe hypotension in the nursing facility prompting her loss of consciousness, renal hypoperfusion with the possible resultant ischemic acute tubular necrosis is the likely cause of renal failure. Creatinine coming down nicely Off ivf remains on Levophed titrating down as tolerated Avoid usual nephrotoxic agents Strict ins and outs 2. Chemistry K being replaced, recheck this afternoon 3. Lower extremity cellulitis. May need further angiographic dye evaluation, kidneys recovering, ideally would wait for creatinine to be well below 2mg/dL prior to dye administration, if the leg becomes critical we may need to pull the trigger sooner and accept a higher risk to her kidneys Blood cultures positive for GPCs 4. Anemia. Hemoglobin 8.3. Remains stable. Will monitor closely and if it drops much more is we will send off iron studies and consider EPO dosing Albert Osborne MD Nephrology [phone] Patient seen and examined via telemedicine, with the assistance of the bedside RN Attestations Medical Necessity Statement*: Eval for PERRY Coding Level of Care Code Acute Workforce Consultant for Darek Ojeda
[2020-05-10 12:07] LABS: Glucose Point of Care 109 mg/dL (70-110)
--- NOTE | 2020-05-10 13:05 | P.PN_ITS ---
Subjective Subjective: Interval history: Steadily improving blood pressure still on the lower side however creatinine continues to improve Medications: Reviewed: Yes Medication Review Details: Active Medications Generic Name Dose Route Start Last Admin Trade Name Amari PRN Reason Stop Dose Admin Acetaminophen 650 mg 05/08/20 12:30 05/09/20 15:27 Tylenol PO 650 mg Q6H PRN Administration MILD PAIN Acetaminophen 650 mg 05/08/20 13:26 Tylenol PO QID PRN Pain Albuterol Sulfate 2.5 mg 05/10/20 06:40 Albuterol INHALATION ONCE PRN WHEEZING Albuterol/Ipratrop ium 3 ml 05/08/20 15:00 Duoneb INHALATION Q6H.RESPIRATORY P RN SHORTNESS OF NIECY TH Atorvastatin Calci um 20 mg 05/09/20 09:00 05/09/20 08:58 Lipitor PO 20 mg DAILY SWATI Administration Calcium Carbonate 500 mg 05/09/20 09:00 05/09/20 08:58 Tums PO 500 mg DAILY SWATI Administration Collagenase 1 applic 05/09/20 09:00 05/09/20 14:52 Santyl TOPICAL Not Given DAILY SWATI Dextrose 25 ml 05/08/20 15:47 D50w IVP ONCE PRN hypoglycemia prot ocol Protocol Dextrose 50 ml 05/08/20 15:47 D50w IVP PRN PRN hypoglycemia prot ocol Protocol Fentanyl 50 mcg 05/10/20 06:40 Sublimaze IVP Q10M PRN Preop Pain Fluticasone Propio jovan 2 spray 05/09/20 09:00 05/09/20 08:59 Flonase INTRANASAL 2 spray DAILY SWATI Administration Glucagon 1 mg 05/08/20 15:47 Glucagen IM ONCE PRN Adult Acute Hypog lycemia Prot. Protocol Heparin Sodium (Be ef Lung) 5,000 unit 05/08/20 13:00 05/10/20 00:14 Heparin SUBCUT Not Given Q12H SWATI Hydroxyzine Pamoat e 50 mg 05/08/20 13:51 05/09/20 02:31 Vistaril PO 50 mg QID PRN Administration Anxiety Norepinephrine Bit artrate 4 mg 254 mls @ 0 mls/h r 05/08/20 12:45 05/10/20 07:29 / Dextrose IV 4 mcg/min .Q0M SWATI 15.2 mls/hr Titration Protocol Per Protocol Piperacillin Sod/T azobactam 50 mls @ 12.5 mls /hr 05/08/20 21:30 05/10/20 07:28 Sod 3.375 gm/ So dium Chloride IV Infused Q12H SWATI Infusion Protocol Linezolid 600 mg in 300 mls @ 300 mls/hr 05/08/20 15:00 05/10/20 07:28 Zyvox Premix IV Infused Q12H SWATI Infusion Protocol Dextrose 500 mls @ 100 mls /hr 05/08/20 15:47 D5w IV ONCE PRN Adult Acute Hypog lycemia Prot Protocol Lactated Ringer's 1,000 mls @ 75 ml s/hr 05/09/20 10:15 05/09/20 23:02 Lactated Ringers IV 75 mls/hr .[id number] SWATI Administration Sodium Chloride 1,000 mls @ 30 ml s/hr 05/10/20 06:45 05/10/20 07:00 Sodium Chloride 0.9% IV 05/11/20 06:44 30 mls/hr .Q24H SWATI Administration Insulin Aspart 0 unit 05/08/20 21:00 05/09/20 17:19 Novolog SUBCUT 4 unit BEDTIME SWATI Administration Protocol Insulin Aspart 0 unit 05/08/20 18:00 05/09/20 17:22 Novolog SUBCUT 4 unit TIDWM SWATI Administration Protocol Ipratropium Bromid e 0.5 mg 05/10/20 06:40 Atrovent Neb INHALATION ONCE PRN WHEEZING Lactulose 20 gm 05/08/20 14:15 Constulose PO DAILY PRN Constipation Levothyroxine Sodi um 125 mcg 05/09/20 09:00 05/09/20 09:00 Synthroid PO 125 mcg DAILY SWATI Administration Lidocaine HCl 1 applic 05/08/20 13:26 Lidocaine 2% Jel ly TOPICAL DAILY PRN TOPICAL Pain Lidocaine HCl 15 ml 05/08/20 13:26 Lidocaine 2% Vis cous MUCOUS MEM QID PRN MOUTH Pain Metoprolol Tartrat e 75 mg 05/08/20 18:00 05/09/20 17:13 Lopressor PO Not Given BID SWATI Morphine Sulfate 2 mg 05/08/20 12:30 05/09/20 02:17 Morphine IVP 2 mg Q4H PRN Administration SEVERE PAIN Naloxone HCl 0.1 mg 05/08/20 12:30 Narcan IVP Q2M PRN RESPIRATORY RATE < 8/MIN Non-Formulary Medi cation 1 each 05/09/20 09:00 Amino Acids-Prot ein Hydrolys [Pro- Stat Awc] PO DAILY SWATI Non-Formulary Medi cation 1 inh 05/09/20 09:00 Fluticasone Furo ate-Vilanterol [Br eo Ellipta] INHALATION DAILY SWATI Nystatin 1 applic 05/08/20 18:00 05/09/20 17:24 Nystatin Powder TOPICAL 1 applic BID SWATI Administration Olanzapine 5 mg 05/09/20 21:00 05/09/20 20:52 Zyprexa Zydis PO 5 mg BEDTIME SWATI Administration Ondansetron HCl 4 mg 05/08/20 12:30 Zofran IVP Q6H PRN NAUSEA AND VOMITI NG Ondansetron HCl 4 mg 05/10/20 06:40 Zofran IVP Q5M PRN NAUSEA AND VOMITI NG Oxycodone/Acetamin ophen 1 tab 05/08/20 13:26 Percocet 10-325 Mg PO Q4H PRN Pain Pantoprazole Sodiu m 40 mg 05/08/20 13:00 05/09/20 09:00 Protonix IVP 40 mg DAILY SWATI Administration Silver Sulfadiazin e 1 applic 05/09/20 11:00 05/09/20 17:25 Silvadene TOPICAL 1 applic BID SWATI Administration Tramadol HCl 50 mg 05/08/20 13:26 Ultram PO Q8H PRN Pain Venlafaxine HCl 150 mg 05/09/20 09:00 Effexor Xr PO DAILY SWATI clarithromycin Allergy (Unknown, Verified 04/16/20 14:33) Unknown hydrocodone Allergy (Unknown, Verified 04/16/20 14:33) Unknown metformin Allergy (Unknown, Verified 04/16/20 14:33) Unknown sitagliptin [From Januvia] Allergy (Unknown, Verified 04/16/20 14:33) Unknown tetanus and diphtheria toxoids Allergy (Unknown, Verified 04/16/20 14:33) Unknown triamcinolone Allergy (Unknown, Verified 04/16/20 14:33) Unknown Vitals/I&O/Wt Last Vital Signs Temp 98.5 F 05/10/20 12:00 Pulse 105 H 05/10/20 12:00 Resp 20 H 05/10/20 12:00 BP 99/57 05/10/20 12:00 Pulse Ox 100 05/10/20 12:00 05/09/20 05/10/20 05/10/20 22:59 06:59 14:59 Intake Total 880 / 1424 1249.50 / 2673.50 1914.820 / 1914.820 Output Total 725 / 725 225 / 950 150 / 150 Balance 155 / 699 1024.50 / 1723.50 1764.820 / 1764.820 Weight last 48 hrs Weight 250 lb 0.067 oz Physical Exam Narrative: EXAM NARRATIVE: GENERAL: Patient is oriented but sleepy NECK: No jugular vein distension. HEENT: No cyanosis. No icterus. No pallor. HEART: Regular S1 and S2. No murmur, rub or gallop. LUNGS: Clear to auscultate bilaterally. ABDOMEN: Soft, nontender and nondistended. Positive bowel sounds. No guarding, rebound or tenderness. CENTRAL NERVOUS SYSTEM: Grossly nonfocal. EXTREMITIES: Left leg swollen wrapped with nonhealing foot ulcer nonpalpable pulses but temperature of foot is normal with ruborous appearance Urinary Catheter Management^: Patino: Cath Placed During This Visit: yes Reason for Continuing Indwelling Catheter: Accurate Measurement of Urinary Output in Critically Ill Patients Urinary Catheter Date of Insertion: 05/08/20 Urinary Catheter Time of Insertion: 13:00 Data : 05/10/20 03:44 05/10/20 03:44 Micro: Microbiology 05/10/20 09:41 Blood Culture - Preliminary Blood SPECIMEN COLLECTED 05/10/20 09:40 Blood Culture - Preliminary Blood SPECIMEN COLLECTED 05/08/20 08:50 Blood Culture - Preliminary Blood Gram positive cocci 05/08/20 08:42 Blood Culture - Preliminary Blood Gram positive cocci A&P Assessment and plan (1) Critical lower limb ischemia: We will continue to treat patient conservatively with wound care management as per surgery and our medicine colleagues. At the moment she is not a good candidate for invasive strategy due to very high risk for contrast- induced nephropathy and permanent renal damage. Nephrology is on board we will work with rest of our colleagues. Once creatinine is at the baseline we may can decide regarding attempt for revascularization and minimal contrast On today's visit dated 05/10/2020 patient continues to improve creatinine meehan. For now we will continue to treat medically and conservatively once creatinine is added to baseline we will weigh risk and benefit and decide accordingly. Status: Acute (2) Acute kidney injury: Continue to improve. 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
[2020-05-10] MEDS: heparin 5,000 unit/mL INJ 1 mL 5000 UNIT SUBCUT (13:46)
[2020-05-10 16:36] LABS: Glucose Point of Care 149 mg/dL (70-110)
[2020-05-10 16:52] LABS: Blood Urea Nitrogen 20 mg/dL (8-23); Calcium 7.7 mg/dL (8.5-10.5); Carbon Dioxide 20 mmol/L (22-29); Chloride 110 mmol/L (98-107); Glucose 127 mg/dL (65-115); Osmolality Calculated 284 mOsm/kg (285-295); Sodium 138 mmol/L (136-145)
[2020-05-10 16:59] LABS: Anion Gap 11.5 (5-19); Potassium 3.5 mmol/L (3.5-5.1)
[2020-05-10] MEDS: nystatin powder 15 gm Btl 1 APPLIC TOPICAL (17:49)
[2020-05-10] MEDS: OLANZapine 5 mg ODT PO (20:39)
[2020-05-10] MEDS: hyDROXYzine 25 mg Capsule 50 MG PO (20:40)
[2020-05-10 21:31] LABS: Glucose Point of Care 118 mg/dL (70-110)
[2020-05-11] VITALS (96 sets, daily range): BP systolic 41–140; BP diastolic 31–87; PULSE 64–120; RESP 14–33; TEMP 36.8–37.3; O2SAT 87–99
[2020-05-11] MEDS: heparin 5,000 unit/mL INJ 1 mL 5000 UNIT SUBCUT ×2 (00:56→13:22)
[2020-05-11] MEDS: linezolid premix 600 MG/300 ML PREMIX 300 MG IV ×2 (02:13→17:16)
[2020-05-11] MEDS: piperacillin-tazobactam 3.375 GM in sodium chloride 0.9% (plus) 50 ML IV ×3 (03:28→18:24)
[2020-05-11 04:57] LABS: Basophils % 0.2 %; Eosinophils # 0.6 10^3/uL (0.0-0.8); Eosinophils % 5.1 %; Hematocrit 24.8 % (37.0-47.0); Hemoglobin 7.8 g/dL (11.5-15.3); Lymphocytes # 2.4 10^3/uL (0.8-4.8); Lymphocytes % 20.6 %; Mean Corpuscular HGB Conc 31.5 g/dL (30.0-36.0); Mean Corpuscular Hemoglobin 28.6 pg (28.0-34.0); Mean Corpuscular Volume 90.8 fL (81-99); Mean Platelet Volume 8.8 fL (7.4-10.4); Monocytes # 1.1 10^3/uL (0.2-0.9); Neutrophils # 7.54 10^3/uL (1.8-7.7); Neutrophils % 64.8 %; Nucleated Red Blood Cells % 0 %; Platelet Count 359 10^3/cmm (130-400); Red Blood Count 2.73 10^6/uL (4.1-5.3); Red Cell Distribution Width 17.7 % (12.1-15.1); White Blood Count 11.6 10^3/uL (4.0-10.0)
[2020-05-11 05:15] LABS: Alanine Aminotransferase 10 U/L (0-33); Albumin Level 2.3 g/dL (3.5-5.2); Alkaline Phosphatase 107 IU/L (35-105); Anion Gap 14.4 (5-19); Aspartate Amino Transferase 12 U/L (0-32); Blood Urea Nitrogen 17 mg/dL (8-23); Carbon Dioxide 19 mmol/L (22-29); Chloride 108 mmol/L (98-107); Globulin 2.9 g/dL (1.3-4.6); Glucose 117 mg/dL (65-115); Osmolality Calculated 283 mOsm/kg (285-295); Potassium 3.4 mmol/L (3.5-5.1); Sodium 138 mmol/L (136-145); Total Bilirubin 0.3 mg/dL (0.15-1.2); Total Protein 5.2 g/dL (6.6-8.7)
[2020-05-11] MEDS: TRAMadol 50 mg Tablet PO ×3 (05:21→19:58)
[2020-05-11 07:27] LABS: Glucose Point of Care 129 mg/dL (70-110)
--- NOTE | 2020-05-11 07:59 | P.PN_ITS ---
Subjective Subjective: Interval history: Leatha reports she is feeling okay. History and physical was reviewed. Denies having shortness of breath or chest discomfort. Medications: Reviewed: Yes Vitals/I&O/Wt Last Vital Signs Temp 99.1 F 05/11/20 04:30 Pulse 97 05/11/20 06:30 Resp 24 H 05/11/20 06:30 BP 119/61 05/11/20 06:30 Pulse Ox 96 05/11/20 06:30 05/10/20 05/11/20 05/11/20 22:59 06:59 14:59 Intake Total 651.3 / 2737.400 172.35 / 2909.750 Output Total 575 / 725 375 / 1100 Balance 76.3 / 2012.400 -202.65 / 1809.750 Weight last 48 hrs Weight 117.651 kg Weight 113.4 kg Physical Exam Narrative: EXAM NARRATIVE: General exam is a white female, conversant Cardiovascular regular rate and rhythm, no murmur Lungs clear Abdomen is soft, obese Extremities no cyanosis or clubbing. Left lower extremity with significant dressing. Cap refill 1 second left lower extremity Neuro no focal deficits Urinary Catheter Management^: Patino: Cath Placed During This Visit: yes Reason for Continuing Indwelling Catheter: Accurate Measurement of Urinary Output in Critically Ill Patients Urinary Catheter Date of Insertion: 05/08/20 Urinary Catheter Time of Insertion: 13:00 Data : 05/11/20 04:47 05/11/20 04:47 Micro: Microbiology 05/08/20 08:42 Blood Culture - Preliminary Blood Enterococcus species 05/10/20 09:41 Blood Culture - Preliminary Blood SPECIMEN COLLECTED 05/10/20 09:40 Blood Culture - Preliminary Blood SPECIMEN COLLECTED A&P Assessment and plan (1) Sepsis: History of recurrent sepsis, but with different organisms Patient reports PICC line has been in for the last 3 to 4 weeks Last admission had UTI with ESBL Currently source of infection may be left lower extremity cellulitis, areas of necrosis however cannot rule out PICC line infection. Urinalysis, dip appeared normal but no micro was done or canceled. Will reorder. Ideally we can remove the PICC line, and gain peripheral access in the interim for IV antibiotics of pressors can be weaned off. I have asked the nurse to try to wean off pressors, get peripheral access so we could potentially remove the PICC line and culture the tip. At this point continue linezolid, Zosyn Leukocytosis is improving Again, try to wean down pressor as blood pressure appears adequate this morning Repeat blood cultures are negative to date, but should they turn positive another culture will need to be done Status: Acute Qualifiers: Sepsis type: sepsis due to unspecified organism Sepsis acute organ dysfunction status: with acute organ dysfunction Severe sepsis acute organ dysfunction type: acute respiratory failure Acute respiratory failure type: unspecified Severe sepsis shock status: with septic shock Qualified Code(s): A41.9 - Sepsis, unspecified organism; R65.21 - Severe sepsis with septic shock; J96.00 - Acute respiratory failure, unspecified whether with hypoxia or hypercapnia (2) Sepsis associated hypotension: See above Status: Acute (3) Critical lower limb ischemia: Appreciate cardiology consult. For now continue conservative management secondary to comorbidities, renal function Status: Acute (4) Acute metabolic encephalopathy: Currently back at baseline. Does have some vascular dementia at baseline according to old records. Status: Acute (5) Acute kidney injury: -PERRY on CKD stage III; baseline Cr appears to be 1-1.4 though has been as high as 5.7 -Likely multifactorial given recent antibiotic use, dehydration -d/c IV fluid hydration as noted improving renal function, continue to monitor -HONORIO inhibitor, diuretics on hold -Renally dose meds, avoid nephrotoxins -Nephrology consult appreciated -Has Patino catheter in place, continue to monitor urine output -CPK-212, BNP-24,925, elevated uric acid-10.2; CPK normalized (58) -monitor for fluid overload with continued IVF; Echo (01/2020)-EF=55% Status: Acute (6) Cellulitis: -On IV Zosyn and Zyvox -Noted leukocytosis, low-grade temp -Blood cultures: 2/4 bottles positive for GPC; repeat set pending -significantly worse compared to most recent admission, surgical debridement today Status: Acute Qualifiers: Laterality: left Site of cellulitis: extremity Site of cellulitis of extremity: lower extremity Qualified Code(s): L03.116 - Cellulitis of left lower limb (7) Peripheral vascular disease: Conservative management currently Status: Chronic (8) Bilateral leg ulcer: Appreciate surgical debridement Status: Chronic Qualifiers: Non-pressure ulcer stage: unspecified non-pressure ulcer stage Qualified Code(s): L97.919 - Non-pressure chronic ulcer of unspecified part of right lower leg with unspecified severity; L97.929 - Non-pressure chronic ulcer of unspecified part of left lower leg with unspecified severity (9) Acute on chronic anemia: Hemoglobin is drifted down. Nephrology is evaluating and will address. No need for transfusion currently. Status: Acute (10) Chronic kidney disease, stage 3: Status: Chronic (11) Hypertension: Holding secondary to sepsis and hypotension Status: Chronic Qualifiers: Hypertension type: essential hypertension Qualified Code(s): I10 - Essential (primary) hypertension (12) COPD (chronic obstructive pulmonary disease): Currently without exacerbation Status: Chronic Qualifiers: COPD type: emphysema Emphysema type: unspecified Qualified Code(s): J43.9 - Emphysema, unspecified (13) Vascular dementia: Status: Chronic Qualifiers: Dementia behavioral disturbance: with behavioral disturbance Qualified Code(s): F01.51 - Vascular dementia with behavioral disturbance (14) Type 2 diabetes mellitus: Sliding scale insulin Status: Chronic Qualifiers: Diabetes mellitus complication status: with other specified complication Diabetes mellitus retirement insulin use: without watermelon harvesting supervisor use Qualified Code(s): E11.69 - Type 2 diabetes mellitus with other specified complication (15) Hypothyroidism: Continue home meds Status: Chronic Qualifiers: Hypothyroidism type: unspecified Qualified Code(s): E03.9 - Hypothyroidism, unspecified Additional A&P Information Hypokalemia, being supplemented-GERD; on PPI GERD Morbid obesity Hyperlipidemia, on statin Chronic pain on narcotics Full code Disposition nursing facility [facility] Heparin for DVT prophylaxis Attestations Medical Necessity Statement*: Needs continued hospitalization in the ICU secondary to sepsis with hypotension Critical Care Time: 35 minutes of ICU time spent at bedside reviewing chart, examining the patient, making a plan on this patient with high risk for decompensation secondary to sepsis with enterococcus and resulting hypotension. 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 Diagnoses Sepsis A41.9; R65.21; J96.00 Sepsis type: sepsis due to unspecified organism Sepsis acute organ dysfunction status: with acute organ dysfunction Severe sepsis acute organ dysfunction type: acute respiratory failure Acute respiratory failure type: unspecified Severe sepsis shock status: with septic shock Sepsis associated hypotension A41.9; I95.9 Critical lower limb ischemia I99.8 Acute metabolic encephalopathy G93.41 Acute kidney injury N17.9 Cellulitis L03.116 Laterality: left Site of cellulitis: extremity Site of cellulitis of extremity: lower extremity Peripheral vascular disease I73.9 Bilateral leg ulcer L97.919; L97.929 Non-pressure ulcer stage: unspecified non-pressure ulcer stage Acute on chronic anemia D64.9 Chronic kidney disease, stage 3 N18.3 Hypertension I10 Hypertension type: essential hypertension COPD (chronic obstructive pulmonary disease) J43.9 COPD type: emphysema Emphysema type: unspecified Vascular dementia F01.51 Dementia behavioral disturbance: with behavioral disturbance Type 2 diabetes mellitus E11.69 Diabetes mellitus complication status: with other specified complication Diabetes mellitus watermelon harvesting supervisor insulin use: without watermelon harvesting supervisor use Hypothyroidism E03.9 Hypothyroidism type: unspecified
--- NOTE | 2020-05-11 07:59 | USCV_ITS ---
Leatha Emery Age: 69 Gender: F : 1950 Exam Date: 05/11/2020 10:00 Ordering Phys: Montez Pierce MD Technologist: Cain Alcala Exam Location: [facility] [place] Indication: CHF BP: 118 / 58 HR: 66 Rhythm: Atrial fibrillation Technical Quality: Suboptimal MEASUREMENTS (Male / Female) Normal Values 2D ECHO LV Diastolic Diameter PLAX 2.9 cm 4.2 - 5.9 / 3.9 - 5.3 cm LV Systolic Diameter PLAX 2.9 cm IVS Diastolic Thickness 1.0 cm 0.6 - 1.0 / 0.6 - 0.9 cm IVS Systolic Thickness 1.5 cm LVPW Diastolic Thickness 1.0 cm 0.6 - 1.0 / 0.6 - 0.9 cm LVPW Systolic Thickness 1.5 cm LVOT Diameter 2.0 cm LV Ejection Fraction 2D Teich 7.2 % LV Ejection Fraction MOD 2C 53.9 % LV Ejection Fraction 2C AL 53.5 % LA Diameter 5.6 cm LA Width 5.5 cm LA Height 7.3 cm RA Width 5.2 cm RA Height 5.5 cm Aorta at Sinotubular Diameter 1.2 cm M-MODE LV Diastolic Diameter MM 5.6 cm 4.2 - 5.9 / 3.9 - 5.3 cm LV Systolic Diameter MM 3.4 cm LV Ejection Fraction MM Teich 67.7 % IVS Diastolic Thickness MM 1.1 cm 0.6 - 1.0 / 0.6 - 0.9 cm IVS Systolic Thickness MM 1.4 cm LVPW Diastolic Thickness MM 1.3 cm 0.6 - 1.0 / 0.6 - 0.9 cm LVPW Systolic Thickness MM 2.1 cm RV Diastolic Diameter MM 2.2 cm Aortic Annulus Diameter 3.5 cm LA Ao Ratio MM 1.6 MV E Point Septal Separation 0.8 cm DOPPLER AV Peak Velocity 129.0 cm/s LVOT Peak Velocity 90.0 cm/s AV Area Cont Eq vti 2.6 cm squared AV Area Cont Eq pk 2.3 cm squared MV Area PHT 8.1 cm squared Mitral E to A Ratio 4.1 MV E' Velocity 12.0 cm/s Mitral E to MV E' Ratio 10.7 Mitral E to LV E' Lateral Ratio 11.1 Mitral E to LV E' Septal Ratio 10.3 TR Peak Velocity 121.0 cm/s TR Peak Gradient 5.9 mmHg PV Peak Velocity 99.0 cm/s FINDINGS Left Ventricle This is a limited quality study. Grossly LV function appears to be normal. Diastolic function cannot be assessed because of atrial fibrillation. Right Ventricle The right ventricle is normal in size and function. Right Atrium The right atrium is normal in size. Left Atrium The left atrium is moderate to severely enlarged. Mitral Valve Mitral annular calcification is noted. There is trace mitral regurgitation. Aortic Valve Aortic valve is thickened. There is no aortic regurgitation or aortic stenosis. Tricuspid Valve Structurally normal tricuspid valve without significant stenosis or regurgitation. RVSP cannot be calculated because of an insufficient TR jet. Pulmonic Valve Poorly visualized Pericardium Normal pericardium without effusion. Aorta Normal ascending aorta dimension. CONCLUSIONS This is a limited quality study. Grossly EF appears to be normal. Will recommend limited echo with contrast to further assess wall motion. Diastolic function cannot be assessed because of atrial fibrillation. Steve Kevin MD (Electronically Signed) Final Date: 11 May 2020 16:56 S
[2020-05-11] MEDS: atorvastatin 40 mg Tablet 20 MG PO (08:47)
[2020-05-11] MEDS: levothyroxine 125 mcg Tablet PO (08:47)
[2020-05-11] MEDS: pantoprazole 40 mg SDV IVP (08:47)
[2020-05-11] MEDS: calcium carbonate 500 mg Chew Tablet PO (08:47)
[2020-05-11] MEDS: venlafaxine ER (24HR) 150 mg Capsule PO (08:47)
[2020-05-11] MEDS: metoprolol tartrate 50 mg Tablet 75 MG PO (08:47)
[2020-05-11] MEDS: fluticasone nasal spray 16gm Btl 2 SPRAY INTRANASAL (08:48)
[2020-05-11 09:03] LABS: Add Urine Culture? Yes; Bacteria Urine TRACE; Bilirubin Urine Neg (NEGATIVE); Blood Urine Neg (Negative); Glucose Urine UA 4+ (Normal); Ketones Urine Negative (Negative); Leukocyte Esterase Urine Negative (Negative); Nitrate Urine Negative (Negative); Protein Urine Trace (Negative); Squamous Epithelial Cell Urine RARE (0-5); Urine Appearance Clear (CLEAR); Urine Color Straw (Yellow); Urobilinogen Urine Norm (Negative); WBC Urine 0-4 /hpf (0-5); pH Urine 5 (5-7)
--- NOTE | 2020-05-11 09:36 | PC.NURSE ---
MD rounded this AM. Ordered access of new peripheral line, and removal of current PICC line in SORAYA. Pressers also to be titrated down as tolerated by patient. BP readings of 130/70. Norepinephrine titrated from 5mcg/min to 4mcg/min. LLE wrapped from debridement yesterday, and showing some yellow drainage around dressing site. Topical meds ordered have been held based and dressings have not been changed. Waiting on MD orders.
[2020-05-11] MEDS: potassium chloride ER 10 mEq Tablet 40 MEQ PO (10:25)
--- NOTE | 2020-05-11 11:01 | PC.NURSE ---
Wound found on sacrum with BM. One small open area on left buttocks. Applied ointment to site. Pt refuses to turn away from supine position. Placing pillows under buttocks to avoid any further advancement in skin breakdown, and in efforts to take weight off of pressure area.
[2020-05-11 11:29] LABS: Glucose Point of Care 148 mg/dL (70-110)
--- NOTE | 2020-05-11 11:31 | PC.SOCIAL ---
*IMM* Important Message from Medicare gave to the patient. Copy placed in the patients chart.
[2020-05-11] MEDS: nystatin powder 15 gm Btl 1 APPLIC TOPICAL ×2 (15:04→18:02)
--- NOTE | 2020-05-11 16:07 | PC.NURSE ---
20 gauge to left upper arm was started this afternoon by guided ultrasound. IV infiltrated. 5 more attempts were unsuccessful in both the left and right arms/wrists. MD was phoned. BP checked both by NIBP and by manual, where BP was running about 110/58. Pt was asymptomatic to pressers being held based on no IV access. MD has placed orders for new PICC line insertion based on the need for continued medications both in hospital setting, and at discharge. Until placement of PICC line, BP being monitored closely by manual auscultation.
--- NOTE | 2020-05-11 17:14 | PC.NURSE ---
MIDLINE ready for use. Plan is to clip midline and swap for PICC after negative blood cultures.
--- NOTE | 2020-05-11 17:18 | PM.PN ---
Subjective Subjective: Interval history: Sepsis due to cellulitis, PERRY. She reports she is feeling better. Medications: Reviewed: Yes Vitals/I&O/Wt Last Vital Signs Temp 98.5 F 05/11/20 07:30 Pulse 75 05/11/20 16:00 Resp 20 H 05/11/20 16:00 BP 94/59 05/11/20 16:00 Pulse Ox 97 05/11/20 16:00 05/11/20 05/11/20 05/11/20 06:59 14:59 22:59 Intake Total 172.35 / 2909.750 1050 / 1050 50 / 1100 Output Total 375 / 1100 476 / 476 125 / 601 Balance -202.65 / 1809.750 574 / 574 -75 / 499 Weight last 48 hrs Weight 117.651 kg Weight 113.4 kg Physical Exam Const: COMMON NORMALS: no acute distress GENERAL APPEARANCE: cooperative Resp: COMMON NORMALS: clear to auscultation bilaterally AUSCULTATION: clear to auscultation bilaterally Cardio: COMMON NORMALS: regular rate and regular rhythm RATE: regular rate RHYTHM: regular rhythm Extremity: GENERAL: Yes edema Urinary Catheter Management^: Patino: Cath Placed During This Visit: yes Reason for Continuing Indwelling Catheter: Accurate Measurement of Urinary Output in Critically Ill Patients Urinary Catheter Date of Insertion: 05/08/20 Urinary Catheter Time of Insertion: 13:00 Data : 05/11/20 04:47 05/11/20 04:47 Micro: Microbiology 05/10/20 09:41 Blood Culture - Preliminary Blood NEGATIVE TO DATE 05/10/20 09:40 Blood Culture - Preliminary Blood NEGATIVE TO DATE 05/08/20 08:42 Blood Culture - Preliminary Blood Enterococcus species A&P Additional A&P Information 1. Acute kidney injury, much improved, good urine output. Blood pressure lower than goal, consider reducing metoprolol 2. Hypokalemia, received IV potassium this morning 3. Sepsis, Lower extremity cellulitis. Plan for arteriogram. Ok from renal standpoint to proceed at this time; hydrate pre. 4. Anemia, consider transfusion if Hb falls further Attestations Medical Necessity Statement*: remains in ICU Time Spent in Patient Care: 16 - 35 minutes Coding Level of Care Code Acute Artificial Breast Fabricator for Darek Ojeda
--- NOTE | 2020-05-11 17:45 | PC.OT ---
OT tx attempted. Nursing requests OT tx to be withheld at this time as pt is very confused. Will attempt to resume OT tx in a.m.
[2020-05-11 17:48] LABS: Glucose Point of Care 98 mg/dL (70-110)
--- NOTE | 2020-05-11 17:57 | PC.NURSE ---
Metoprolol Tartate returned to pxyis. Full amount of morphine wasted based on pt blood pressure running at 95/47. Other means of distraction therapy, used to treat pain levels. Pt is exhibiting more signs of confusion. Redirection used to try and reorient pt to current situations.
--- NOTE | 2020-05-11 18:29 | P.PN_ITS ---
Subjective Subjective: Interval history: Continues to improve steadily more conscious now. And other vitals are stable. Creatinine is improving Medications: Reviewed: Yes Medication Review Details: Active Medications Generic Name Dose Route Start Last Admin Trade Name Freq PRN Reason Stop Dose Admin Acetaminophen 650 mg 05/08/20 12:30 05/09/20 15:27 Tylenol PO 650 mg Q6H PRN Administration MILD PAIN Acetaminophen 650 mg 05/08/20 13:26 Tylenol PO QID PRN Pain Albuterol Sulfate 2.5 mg 05/10/20 06:40 Albuterol INHALATION ONCE PRN WHEEZING Albuterol/Ipratrop ium 3 ml 05/08/20 15:00 Duoneb INHALATION Q6H.RESPIRATORY P RN SHORTNESS OF NIECY TH Atorvastatin Calci um 20 mg 05/09/20 09:00 05/09/20 08:58 Lipitor PO 20 mg DAILY SWATI Administration Calcium Carbonate 500 mg 05/09/20 09:00 05/09/20 08:58 Tums PO 500 mg DAILY SWATI Administration Collagenase 1 applic 05/09/20 09:00 05/09/20 14:52 Santyl TOPICAL Not Given DAILY SWATI Dextrose 25 ml 05/08/20 15:47 D50w IVP ONCE PRN hypoglycemia prot ocol Protocol Dextrose 50 ml 05/08/20 15:47 D50w IVP PRN PRN hypoglycemia prot ocol Protocol Fentanyl 50 mcg 05/10/20 06:40 Sublimaze IVP Q10M PRN Preop Pain Fluticasone Propio jovan 2 spray 05/09/20 09:00 05/09/20 08:59 Flonase INTRANASAL 2 spray DAILY SWATI Administration Glucagon 1 mg 05/08/20 15:47 Glucagen IM ONCE PRN Adult Acute Hypog lycemia Prot. Protocol Heparin Sodium (Be ef Lung) 5,000 unit 05/08/20 13:00 05/10/20 00:14 Heparin SUBCUT Not Given Q12H SWATI Hydroxyzine Pamoat e 50 mg 05/08/20 13:51 05/09/20 02:31 Vistaril PO 50 mg QID PRN Administration Anxiety Norepinephrine Bit artrate 4 mg 254 mls @ 0 mls/h r 05/08/20 12:45 05/10/20 07:29 / Dextrose IV 4 mcg/min .Q0M SWATI 15.2 mls/hr Titration Protocol Per Protocol Piperacillin Sod/T azobactam 50 mls @ 12.5 mls /hr 05/08/20 21:30 05/10/20 07:28 Sod 3.375 gm/ So dium Chloride IV Infused Q12H SWATI Infusion Protocol Linezolid 600 mg in 300 mls @ 300 mls/hr 05/08/20 15:00 05/10/20 07:28 Zyvox Premix IV Infused Q12H SWATI Infusion Protocol Dextrose 500 mls @ 100 mls /hr 05/08/20 15:47 D5w IV ONCE PRN Adult Acute Hypog lycemia Prot Protocol Lactated Ringer's 1,000 mls @ 75 ml s/hr 05/09/20 10:15 05/09/20 23:02 Lactated Ringers IV 75 mls/hr .[id number] SWATI Administration Sodium Chloride 1,000 mls @ 30 ml s/hr 05/10/20 06:45 05/10/20 07:00 Sodium Chloride 0.9% IV 05/11/20 06:44 30 mls/hr .Q24H SWATI Administration Insulin Aspart 0 unit 05/08/20 21:00 05/09/20 17:19 Novolog SUBCUT 4 unit BEDTIME SWATI Administration Protocol Insulin Aspart 0 unit 05/08/20 18:00 05/09/20 17:22 Novolog SUBCUT 4 unit TIDWM SWATI Administration Protocol Ipratropium Bromid e 0.5 mg 05/10/20 06:40 Atrovent Neb INHALATION ONCE PRN WHEEZING Lactulose 20 gm 05/08/20 14:15 Constulose PO DAILY PRN Constipation Levothyroxine Sodi um 125 mcg 05/09/20 09:00 05/09/20 09:00 Synthroid PO 125 mcg DAILY SWATI Administration Lidocaine HCl 1 applic 05/08/20 13:26 Lidocaine 2% Jel ly TOPICAL DAILY PRN TOPICAL Pain Lidocaine HCl 15 ml 05/08/20 13:26 Lidocaine 2% Vis cous MUCOUS MEM QID PRN MOUTH Pain Metoprolol Tartrat e 75 mg 05/08/20 18:00 05/09/20 17:13 Lopressor PO Not Given BID SWATI Morphine Sulfate 2 mg 05/08/20 12:30 05/09/20 02:17 Morphine IVP 2 mg Q4H PRN Administration SEVERE PAIN Naloxone HCl 0.1 mg 05/08/20 12:30 Narcan IVP Q2M PRN RESPIRATORY RATE < 8/MIN Non-Formulary Medi cation 1 each 05/09/20 09:00 Amino Acids-Prot ein Hydrolys [Pro- Stat Awc] PO DAILY SWATI Non-Formulary Medi cation 1 inh 05/09/20 09:00 Fluticasone Furo ate-Vilanterol [Br eo Ellipta] INHALATION DAILY SWATI Nystatin 1 applic 05/08/20 18:00 05/09/20 17:24 Nystatin Powder TOPICAL 1 applic BID SWATI Administration Olanzapine 5 mg 05/09/20 21:00 05/09/20 20:52 Zyprexa Zydis PO 5 mg BEDTIME SWATI Administration Ondansetron HCl 4 mg 05/08/20 12:30 Zofran IVP Q6H PRN NAUSEA AND VOMITI NG Ondansetron HCl 4 mg 05/10/20 06:40 Zofran IVP Q5M PRN NAUSEA AND VOMITI NG Oxycodone/Acetamin ophen 1 tab 05/08/20 13:26 Percocet 10-325 Mg PO Q4H PRN Pain Pantoprazole Sodiu m 40 mg 05/08/20 13:00 05/09/20 09:00 Protonix IVP 40 mg DAILY SWATI Administration Silver Sulfadiazin e 1 applic 05/09/20 11:00 05/09/20 17:25 Silvadene TOPICAL 1 applic BID SWATI Administration Tramadol HCl 50 mg 05/08/20 13:26 Ultram PO Q8H PRN Pain Venlafaxine HCl 150 mg 05/09/20 09:00 Effexor Xr PO DAILY [facility] clarithromycin Allergy (Unknown, Verified 04/16/20 14:33) Unknown hydrocodone Allergy (Unknown, Verified 04/16/20 14:33) Unknown metformin Allergy (Unknown, Verified 04/16/20 14:33) Unknown sitagliptin [From Januvia] Allergy (Unknown, Verified 04/16/20 14:33) Unknown tetanus and diphtheria toxoids Allergy (Unknown, Verified 04/16/20 14:33) Unknown triamcinolone Allergy (Unknown, Verified 04/16/20 14:33) Unknown Vitals/I&O/Wt Last Vital Signs Temp 98.5 F 05/11/20 07:30 Pulse 81 05/11/20 18:00 Resp 24 H 05/11/20 18:00 BP 112/79 05/11/20 18:00 Pulse Ox 98 05/11/20 18:00 05/11/20 05/11/20 05/11/20 06:59 14:59 22:59 Intake Total 172.35 / 2909.750 1050 / 1050 172 / 1222 Output Total 375 / 1100 476 / 476 250 / 726 Balance -202.65 / 1809.750 574 / 574 -78 / 496 Weight last 48 hrs Weight 259 lb 6 oz Weight 250 lb 0.067 oz Physical Exam Narrative: EXAM NARRATIVE: GENERAL: Patient is oriented but sleepy NECK: No jugular vein distension. HEENT: No cyanosis. No icterus. No pallor. HEART: Regular S1 and S2. No murmur, rub or gallop. LUNGS: Clear to auscultate bilaterally. ABDOMEN: Soft, nontender and nondistended. Positive bowel sounds. No guarding, rebound or tenderness. CENTRAL NERVOUS SYSTEM: Grossly nonfocal. EXTREMITIES: Left leg swollen wrapped with nonhealing foot ulcer nonpalpable pulses but temperature of foot is normal with ruborous appearance Urinary Catheter Management^: Patino: Cath Placed During This Visit: yes Reason for Continuing Indwelling Catheter: Accurate Measurement of Urinary Output in Critically Ill Patients Urinary Catheter Date of Insertion: 05/08/20 Urinary Catheter Time of Insertion: 13:00 Data : 05/11/20 04:47 05/11/20 04:47 Micro: Microbiology 05/10/20 09:41 Blood Culture - Preliminary Blood NEGATIVE TO DATE 05/10/20 09:40 Blood Culture - Preliminary Blood NEGATIVE TO DATE 05/08/20 08:42 Blood Culture - Preliminary Blood Enterococcus species A&P Assessment and plan (1) Critical lower limb ischemia: We will continue to treat patient conservatively with wound care management as per surgery and our medicine colleagues. At the moment she is not a good candidate for invasive strategy due to very high risk for contrast-in duced nephropathy and permanent renal damage. Nephrology is on board we will work with rest of our colleagues. Once creatinine is at the baseline we may can decide regarding attempt for revascularization and minimal contrast On today's visit dated 05/10/2020 patient continues to improve creatinine meehan. For now we will continue to treat medically and conservatively once creatinine is added to baseline we will weigh risk and benefit and decide accordingly. On today's visit dated 05/11/2020 she remained stable denies any pain in the leg blood pressure and creatinine is improving. Continue to monitor. I have detailed discussion with the patient regarding all risk benefit and alternative for the procedure. Patient would like to proceed with it. Status: Acute (2) Acute kidney injury: Improving . Nephrology is on board Status: Acute (3) Atrial fibrillation: Rate controlled. Will continue same Status: Acute (4) Sepsis associated hypotension: Improved and resolved. 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
[2020-05-11] MEDS: collagenase oint 30 gm 1 APPLIC TOPICAL (19:04)
[2020-05-11] MEDS: oxyCODONE-APAP 10-325 mg Tablet 1 TAB PO (19:15)
[2020-05-11] MEDS: morphine 4 mg/mL SDV 1 mL 2 MG IVP (19:40)
[2020-05-11] MEDS: hyDROXYzine 25 mg Capsule 50 MG PO (19:58)
[2020-05-11 20:33] LABS: Glucose Point of Care 91 mg/dL (70-110)
[2020-05-11] MEDS: OLANZapine 5 mg ODT PO (20:57)
[2020-05-12] VITALS (36 sets, daily range): BP systolic 62–136; BP diastolic 34–91; PULSE 69–109; RESP 11–33; TEMP 36.8–37.2; O2SAT 90–100
[2020-05-12] MEDS: heparin 5,000 unit/mL INJ 1 mL 5000 UNIT SUBCUT ×3 (01:26→23:30)
[2020-05-12] MEDS: piperacillin-tazobactam 3.375 GM in sodium chloride 0.9% (plus) 50 ML IV ×3 (02:40→17:31)
[2020-05-12] MEDS: linezolid premix 600 MG/300 ML PREMIX 300 MG IV ×2 (02:52→14:23)
[2020-05-12 04:06] LABS: Basophils % 0.3 %; Eosinophils # 0.5 10^3/uL (0.0-0.8); Eosinophils % 5.1 %; Hematocrit 23.9 % (37.0-47.0); Hemoglobin 7.3 g/dL (11.5-15.3); Lymphocytes # 2.2 10^3/uL (0.8-4.8); Mean Corpuscular HGB Conc 30.5 g/dL (30.0-36.0); Mean Corpuscular Hemoglobin 28.2 pg (28.0-34.0); Mean Corpuscular Volume 92.3 fL (81-99); Mean Platelet Volume 9.1 fL (7.4-10.4); Monocytes # 0.9 10^3/uL (0.2-0.9); Monocytes % 9.7 %; Neutrophils # 5.86 10^3/uL (1.8-7.7); Neutrophils % 61.5 %; Nucleated Red Blood Cells % 0 %; Platelet Count 281 10^3/cmm (130-400); Red Blood Count 2.59 10^6/uL (4.1-5.3); White Blood Count 9.5 10^3/uL (4.0-10.0)
[2020-05-12 04:44] LABS: Alanine Aminotransferase 10 U/L (0-33); Alkaline Phosphatase 100 IU/L (35-105); Anion Gap 11.8 (5-19); Aspartate Amino Transferase 17 U/L (0-32); Blood Urea Nitrogen 16 mg/dL (8-23); Calcium 7.6 mg/dL (8.5-10.5); Carbon Dioxide 21 mmol/L (22-29); Chloride 110 mmol/L (98-107); Globulin 2.8 g/dL (1.3-4.6); Glucose 101 mg/dL (65-115); Osmolality Calculated 284 mOsm/kg (285-295); Potassium 3.8 mmol/L (3.5-5.1); Sodium 139 mmol/L (136-145); Total Bilirubin 0.3 mg/dL (0.15-1.2); Total Protein 4.8 g/dL (6.6-8.7)
--- NOTE | 2020-05-12 07:12 | PC.NURSE ---
Pt dressing change complete 05/11 at 1900 per MD phone orders. Wounds flushed gently with sterile NS. Old dressings removed. Santyl was applied generously to wounds with tefla pads to around wounds sites, then wrapped loosely in kerlex on bilateral lower leg extremities. Pt was medicated with 2mg Morphine IVP diluted in NS flush and pushed over 5 mins to ensure no major dip in BP or hypotensive episodes. Pt handled dressings changes well after medicine technologist. And pain levels were reported to be at a 5 after admin.
--- NOTE | 2020-05-12 07:27 | PC.NURSE ---
Shift Events Patient is Oriented x 4 but has active dementia. Skin assessed at shift change and dressing change was completed at that time. Pain medication given x 3. Remained free of falls and injury this shift.
--- NOTE | 2020-05-12 07:39 | P.PN_ITS ---
Subjective Subjective: Interval history: Patient reports she feels better than yesterday. Still having some leg pain. Medications: Reviewed: Yes Vitals/I&O/Wt Last Vital Signs Temp 98.3 F 05/12/20 04:00 Pulse 97 05/12/20 07:00 Resp 14 05/12/20 07:00 BP 125/66 05/12/20 07:00 Pulse Ox 96 05/12/20 07:00 05/11/20 05/12/20 05/12/20 22:59 06:59 14:59 Intake Total 632 / 1682 Output Total 300 / 776 180 / 956 Balance 332 / 906 -180 / 726 Weight last 48 hrs Weight 121.835 kg Weight 117.651 kg Physical Exam Narrative: EXAM NARRATIVE: General exam is a white female, conversant Cardiovascular regular rate and rhythm, no murmur Lungs clear Abdomen is soft, obese Extremities no cyanosis or clubbing. Left lower extremity with multiple eschars. Toes cool. Cap refill around 2 seconds. Neuro no focal deficits Urinary Catheter Management^: Patino: Cath Placed During This Visit: yes Reason for Continuing Indwelling Catheter: Accurate Measurement of Urinary Output in Critically Ill Patients Urinary Catheter Date of Insertion: 05/08/20 Urinary Catheter Time of Insertion: 13:00 Data : 05/12/20 03:40 05/12/20 03:40 Micro: Microbiology 05/10/20 09:41 Blood Culture - Preliminary Blood NEGATIVE TO DATE 05/10/20 09:40 Blood Culture - Preliminary Blood NEGATIVE TO DATE A&P Assessment and plan (1) Sepsis: History of recurrent sepsis, but with different organisms Patient reports PICC line has been in for the last 3 to 4 weeks May 11 secondary to bacteremia with enterococcus and tip will be cultured Last admission had UTI with ESBL Currently source of infection may be left lower extremity cellulitis, areas of necrosis however cannot rule out PICC line infection. Urinalysis, dip appeared normal but no micro was done or canceled. . PICC line removed Continue linezolid, Zosyn Leukocytosis has resolved Pressors have been weaned off Repeat blood cultures are negative to date Status: Acute Qualifiers: Sepsis type: sepsis due to unspecified organism Sepsis acute organ dysfunction status: with acute organ dysfunction Severe sepsis acute organ dysfunction type: acute respiratory failure Acute respiratory failure type: unspecified Severe sepsis shock status: with septic shock Qualified Code(s): A41.9 - Sepsis, unspecified organism; R65.21 - Severe sepsis with septic shock; J96.00 - Acute respiratory failure, unspecified whether with hypoxia or hype rcapnia (2) Sepsis associated hypotension: See above Status: Acute (3) Critical lower limb ischemia: Appreciate cardiology consult. For now continue conservative management secondary to comorbidities, renal function. Cardiology considering angiogram Status: Acute (4) Acute metabolic encephalopathy: Currently back at baseline. Does have some vascular dementia at baseline according to old records. Status: Acute (5) Acute kidney injury: Acute kidney injury has resolved. Hold renal toxic medications Appreciate nephrology consultation Continue Patino Status: Acute (6) Cellulitis: Continue Zosyn, linezolid PICC line discontinued Culture tip May need JAXSON to determine course of IV antibiotics. Status: Acute Qualifiers: Laterality: left Site of cellulitis: extremity Site of cellulitis of extremity: lower extremity Qualified Code(s): L03.116 - Cellulitis of left lower limb (7) Peripheral vascular disease: Cardiology considering angiogram. Status: Chronic (8) Bilateral leg ulcer: Appreciate surgical debridement Status: Chronic Qualifiers: Non-pressure ulcer stage: unspecified non-pressure ulcer stage Qualified Code(s): L97.919 - Non-pressure chronic ulcer of unspecified part of right lower leg with unspecified severity; L97.929 - Non-pressure chronic ulcer of unspecified part of left lower leg with unspecified severity (9) Acute on chronic anemia: Hemoglobin continues to decrease. Transfuse 1 unit packed red blood cells today. Lasix 20 mg IV following transfusion. Status: Acute (10) Chronic kidney disease, stage 3: Status: Chronic (11) Hypertension: Holding secondary to sepsis and hypotension Status: Chronic Qualifiers: Hypertension type: essential hypertension Qualified Code(s): I10 - Essential (primary) hypertension (12) COPD (chronic obstructive pulmonary disease): Currently without exacerbation Status: Chronic Qualifiers: COPD type: emphysema Emphysema type: unspecified Qualified Code(s): J43.9 - Emphysema, unspecified (13) Vascular dementia: Status: Chronic Qualifiers: Dementia behavioral disturbance: with behavioral disturbance Qualified Code(s): F01.51 - Vascular dementia with behavioral disturbance (14) Type 2 diabetes mellitus: Sliding scale insulin Status: Chronic Qualifiers: Diabetes mellitus complication status: with other specified complication Diabetes mellitus termite control representative insulin use: without termite control representative use Qualified Code(s): E11.69 - Type 2 diabetes mellitus with other specified complication (15) Hypothyroidism: Continue home meds Status: Chronic Qualifiers: Hypothyroidism type: unspecified Qualified Code(s): E03.9 - Hypothyroidism, unspecified Additional A&P Information Atrial fibrillation. Reinstitute metoprolol 12.5 mg twice daily to start secondary to recent history of hypotension. Hypokalemia, resolved -GERD; on PPI GERD Morbid obesity Hyperlipidemia, on statin Chronic pain on narcotics Full code Disposition nursing facility [facility] Heparin for DVT prophylaxis Attestations Medical Necessity Statement*: Needs continued hospital stay for IV antibiotics secondary to sepsis. Coding Level of Care Code Acute Patternmaker Pressure Cast for [facility] Diagnoses Sepsis A41.9; R65.21; J96.00 Sepsis type: sepsis due to unspecified organism Sepsis acute organ dysfunction status: with acute organ dysfunction Severe sepsis acute organ dysfunction type: acute respiratory failure Acute respiratory failure type: unspecified Severe sepsis shock status: with septic shock Sepsis associated hypotension A41.9; I95.9 Critical lower limb ischemia I99.8 Acute metabolic encephalopathy G93.41 Acute kidney injury N17.9 Cellulitis L03.116 Laterality: left Site of cellulitis: extremity Site of cellulitis of extremity: lower extremity Peripheral vascular disease I73.9 Bilateral leg ulcer L97.919; L97.929 Non-pressure ulcer stage: unspecified non-pressure ulcer stage Acute on chronic anemia D64.9 Chronic kidney disease, stage 3 N18.3 Hypertension I10 Hypertension type: essential hypertension COPD (chronic obstructive pulmonary disease) J43.9 COPD type: emphysema Emphysema type: unspecified Vascular dementia F01.51 Dementia behavioral disturbance: with behavioral disturbance Type 2 diabetes mellitus E11.69 Diabetes mellitus complication status: with other specified complication Diabetes mellitus retirement insulin use: without retirement use Hypothyroidism E03.9 Hypothyroidism type: unspecified
--- NOTE | 2020-05-12 07:56 | USCV_ITS ---
Leatha Emery Age: 69 Gender: F : 1950 Exam Date: 05/12/2020 12:26 Ordering Phys: Montez Pierce MD Technologist: Cain Alcala Exam Location: [facility] [place] Indication: BACTEREMIA BP: / HR: Rhythm: Sinus Technical Quality: MEASUREMENTS (Male / Female) Normal Values Medications Patient given IV sedation by anesthesia service, for details please refer to the anesthesia report. Complications None. Proc. Components FINDINGS Left Ventricle Normal left ventricular cavity size. Normal left ventricular systolic function. Left ventricular ejection fraction is estimated at 55 %. Right Ventricle The right ventricle is normal in size and function. Right Atrium Moderately increased right atrial size. Left Atrium Moderately increased left atrial size. LA Appendage No thrombus visualized in the left atrial appendage. IA Septum Patent foramen ovale. Ssvx-vx-dyxvu shunt seen at the atrial level. Mitral Valve Mildly thickened mitral valve. No mitral valve stenosis. Mild mitral valve regurgitation. Aortic Valve Moderate aortic valve calcification. No aortic valve stenosis. Trace aortic valve regurgitation. Tricuspid Valve Skuw-xt-romictce tricuspid valve regurgitation. Pulmonic Valve Structurally normal pulmonic valve without significant stenosis. There is no pulmonic regurgitation. Pericardium Normal pericardium without effusion. Aorta Normal ascending aorta dimension. CONCLUSIONS 1-Normal left ventricular cavity size. Normal left ventricular systolic function. Left ventricular ejection fraction is estimated at 55 %. 2-Moderately increased right atrial size. 3-Moderately increased left atrial size. 4-No thrombus visualized in the left atrial appendage. 5-Patent foramen ovale. Uyxe-ws-kdcot shunt seen at the atrial level. 6-Mildly thickened mitral valve. No mitral valve stenosis. Mild mitral valve regurgitation. 7-Moderate aortic valve calcification. No aortic valve stenosis. Trace aortic valve regurgitation. 9-Uzwt-ki-moderate tricuspid valve regurgitation. 9-There is no pericardial effusion. 10-No obvious vegetation or source of infection noted 11-There are no prior echocardiogram studies to compare. Elver Alejandre MD (Electronically Signed) Final Date: 12 May 2020 19:13 S
[2020-05-12 08:02] LABS: Ferritin 211 ng/mL (15-150); Iron 18 ug/dL (37-145); Total Iron Binding Capacity 50 mcg/dl; Unsaturated Iron Binding 32 ug/dL (112-347)
[2020-05-12 08:16] LABS: Vitamin B12 980 pg/mL (232-1245)
[2020-05-12] MEDS: sodium chloride 0.9% (100 ml) 100 ML 50 ML (08:50)
[2020-05-12] MEDS: pantoprazole 40 mg SDV IVP (10:24)
--- NOTE | 2020-05-12 10:37 | PC.NURSE ---
[address] Pierce of critical lab value of Blood Cutlures show VRE. HE noted she is on Linexolid and will check resistance.
[2020-05-12] MEDS: nystatin powder 15 gm Btl 1 APPLIC TOPICAL ×2 (10:42→17:42)
[2020-05-12] MEDS: FUROsemide 10 mg/mL SDV 2mL 20 MG IVP (11:33)
--- NOTE | 2020-05-12 12:17 | PM.PN ---
Subjective Subjective: Interval history: Overall she is feeling better she underwent transesophageal echocardiogram due to bacteremia which did not show vegetation or source of bacteremia Medications: Reviewed: Yes Medication Review Details: Active Medications Generic Name Dose Route Start Last Admin Trade Name Freq PRN Reason Stop Dose Admin Acetaminophen 650 mg 05/08/20 12:30 05/09/20 15:27 Tylenol PO 650 mg Q6H PRN Administration MILD PAIN Acetaminophen 650 mg 05/08/20 13:26 Tylenol PO QID PRN Pain Albuterol Sulfate 2.5 mg 05/10/20 06:40 Albuterol INHALATION ONCE PRN WHEEZING Albuterol/Ipratrop ium 3 ml 05/08/20 15:00 Duoneb INHALATION Q6H.RESPIRATORY P RN SHORTNESS OF NIECY TH Atorvastatin Calci um 20 mg 05/09/20 09:00 05/09/20 08:58 Lipitor PO 20 mg DAILY SWATI Administration Calcium Carbonate 500 mg 05/09/20 09:00 05/09/20 08:58 Tums PO 500 mg DAILY SWATI Administration Collagenase 1 applic 05/09/20 09:00 05/09/20 14:52 Santyl TOPICAL Not Given DAILY SWATI Dextrose 25 ml 05/08/20 15:47 D50w IVP ONCE PRN hypoglycemia prot ocol Protocol Dextrose 50 ml 05/08/20 15:47 D50w IVP PRN PRN hypoglycemia prot ocol Protocol Fentanyl 50 mcg 05/10/20 06:40 Sublimaze IVP Q10M PRN Preop Pain Fluticasone Propio jovan 2 spray 05/09/20 09:00 05/09/20 08:59 Flonase INTRANASAL 2 spray DAILY SWATI Administration Glucagon 1 mg 05/08/20 15:47 Glucagen IM ONCE PRN Adult Acute Hypog lycemia Prot. Protocol Heparin Sodium (Be ef Lung) 5,000 unit 05/08/20 13:00 05/10/20 00:14 Heparin SUBCUT Not Given Q12H SWATI Hydroxyzine Pamoat e 50 mg 05/08/20 13:51 05/09/20 02:31 Vistaril PO 50 mg QID PRN Administration Anxiety Norepinephrine Bit artrate 4 mg 254 mls @ 0 mls/h r 05/08/20 12:45 05/10/20 07:29 / Dextrose IV 4 mcg/min .Q0M SWATI 15.2 mls/hr Titration Protocol Per Protocol Piperacillin Sod/T azobactam 50 mls @ 12.5 mls /hr 05/08/20 21:30 05/10/20 07:28 Sod 3.375 gm/ So dium Chloride IV Infused Q12H SWATI Infusion Protocol Linezolid 600 mg in 300 mls @ 300 mls/hr 05/08/20 15:00 05/10/20 07:28 Zyvox Premix IV Infused Q12H SWATI Infusion Protocol Dextrose 500 mls @ 100 mls /hr 05/08/20 15:47 D5w IV ONCE PRN Adult Acute Hypog lycemia Prot Protocol Lactated Ringer's 1,000 mls @ 75 ml s/hr 05/09/20 10:15 05/09/20 23:02 Lactated Ringers IV 75 mls/hr .[id number] SWATI Administration Sodium Chloride 1,000 mls @ 30 ml s/hr 05/10/20 06:45 05/10/20 07:00 Sodium Chloride 0.9% IV 05/11/20 06:44 30 mls/hr .Q24H SWATI Administration Insulin Aspart 0 unit 05/08/20 21:00 05/09/20 17:19 Novolog SUBCUT 4 unit BEDTIME SWATI Administration Protocol Insulin Aspart 0 unit 05/08/20 18:00 05/09/20 17:22 Novolog SUBCUT 4 unit TIDWM SWATI Administration Protocol Ipratropium Bromid e 0.5 mg 05/10/20 06:40 Atrovent Neb INHALATION ONCE PRN WHEEZING Lactulose 20 gm 05/08/20 14:15 Constulose PO DAILY PRN Constipation Levothyroxine Sodi um 125 mcg 05/09/20 09:00 05/09/20 09:00 Synthroid PO 125 mcg DAILY SWATI Administration Lidocaine HCl 1 applic 05/08/20 13:26 Lidocaine 2% Jel ly TOPICAL DAILY PRN TOPICAL Pain Lidocaine HCl 15 ml 05/08/20 13:26 Lidocaine 2% Vis cous MUCOUS MEM QID PRN MOUTH Pain Metoprolol Tartrat e 75 mg 05/08/20 18:00 05/09/20 17:13 Lopressor PO Not Given BID SWATI Morphine Sulfate 2 mg 05/08/20 12:30 05/09/20 02:17 Morphine IVP 2 mg Q4H PRN Administration SEVERE PAIN Naloxone HCl 0.1 mg 05/08/20 12:30 Narcan IVP Q2M PRN RESPIRATORY RATE < 8/MIN Non-Formulary Medi cation 1 each 05/09/20 09:00 Amino Acids-Prot ein Hydrolys [Pro- Stat Awc] PO DAILY SWATI Non-Formulary Medi cation 1 inh 05/09/20 09:00 Fluticasone Furo ate-Vilanterol [Br eo Ellipta] INHALATION DAILY SWATI Nystatin 1 applic 05/08/20 18:00 05/09/20 17:24 Nystatin Powder TOPICAL 1 applic BID SWATI Administration Olanzapine 5 mg 05/09/20 21:00 05/09/20 20:52 Zyprexa Zydis PO 5 mg BEDTIME SWATI Administration Ondansetron HCl 4 mg 05/08/20 12:30 Zofran IVP Q6H PRN NAUSEA AND VOMITI NG Ondansetron HCl 4 mg 05/10/20 06:40 Zofran IVP Q5M PRN NAUSEA AND VOMITI NG Oxycodone/Acetamin ophen 1 tab 05/08/20 13:26 Percocet 10-325 Mg PO Q4H PRN Pain Pantoprazole Sodiu m 40 mg 05/08/20 13:00 05/09/20 09:00 Protonix IVP 40 mg DAILY SWATI Administration Silver Sulfadiazin e 1 applic 05/09/20 11:00 05/09/20 17:25 Silvadene TOPICAL 1 applic BID SWATI Administration Tramadol HCl 50 mg 05/08/20 13:26 Ultram PO Q8H PRN Pain Venlafaxine HCl 150 mg 05/09/20 09:00 Effexor Xr PO DAILY [facility] clarithromycin Allergy (Unknown, Verified 04/16/20 14:33) Unknown hydrocodone Allergy (Unknown, Verified 04/16/20 14:33) Unknown metformin Allergy (Unknown, Verified 04/16/20 14:33) Unknown sitagliptin [From Januvia] Allergy (Unknown, Verified 04/16/20 14:33) Unknown tetanus and diphtheria toxoids Allergy (Unknown, Verified 04/16/20 14:33) Unknown triamcinolone Allergy (Unknown, Verified 04/16/20 14:33) Unknown Vitals/I&O/Wt Last Vital Signs Temp 98.5 F 05/12/20 10:50 Pulse 75 05/12/20 10:50 Resp 12 05/12/20 10:50 BP 110/58 05/12/20 10:50 Pulse Ox 98 05/12/20 10:00 05/11/20 05/12/20 05/12/20 22:59 06:59 14:59 Intake Total 632 / 1682 50 / 1732 0 / 0 Output Total 300 / 776 180 / 956 Balance 332 / 906 -130 / 776 0 / 0 Weight last 48 hrs Weight 268 lb 9.6 oz Weight 259 lb 6 oz Physical Exam Narrative: EXAM NARRATIVE: GENERAL: Patient is oriented but sleepy NECK: No jugular vein distension. HEENT: No cyanosis. No icterus. No pallor. HEART: Regular S1 and S2. No murmur, rub or gallop. LUNGS: Clear to auscultate bilaterally. ABDOMEN: Soft, nontender and nondistended. Positive bowel sounds. No guarding, rebound or tenderness. CENTRAL NERVOUS SYSTEM: Grossly nonfocal. EXTREMITIES: Left leg swollen wrapped with nonhealing foot ulcer nonpalpable pulses but temperature of foot is normal with ruborous appearance Urinary Catheter Management^: Patino: Cath Placed During This Visit: yes Reason for Continuing Indwelling Catheter: Accurate Measurement of Urinary Output in Critically Ill Patients Urinary Catheter Date of Insertion: 05/08/20 Urinary Catheter Time of Insertion: 13:00 Data : 05/12/20 03:40 05/12/20 03:40 Micro: Microbiology 05/08/20 08:42 Blood Culture - Preliminary Blood Enterococcus faecium vre 05/10/20 09:41 Blood Culture - Preliminary Blood NEGATIVE TO DATE 05/10/20 09:40 Blood Culture - Preliminary Blood NEGATIVE TO DATE A&P Assessment and plan (1) Critical lower limb ischemia: Denies any more pain patient has persistent bacteremia she is on antibiotics. Transesophageal echocardiogram did not show any significant vegetation or source of infection. Her creatinine is almost near normal. Hopefully will proceed with peripheral angiogram and possible intervention for critical limb ischemia tomorrow. Status: Acute (2) Acute kidney injury: Continues to improve. Recommendation as per nephrology Status: Acute (3) Atrial fibrillation: Rate controlled. Will continue same Status: Acute (4) Sepsis associated hypotension: Improved and resolved. Continue IV fluid and antibiotics as per medicine Status: Acute (5) Bacteremia: Persistent bacteremia requiring transesophageal echocardiogram. Rule out cardiac source for infection. Transesophageal echocardiogram did not show significant vegetation or source of infection Status: Acute Attestations Medical Necessity Statement*: Patient require continuation hospitalization for above defined care Coding Level of Care Code Established Pt Acute Consumer Loan Processor for g Fwd Patient Type Established History Expanded Problem Focused Exam Expanded Problem Focused Medical Decision Making Moderate Complexity Diagnoses Critical lower limb ischemia I99.8 Acute kidney injury N17.9 Atrial fibrillation I48.91 Sepsis associated hypotension A41.9; I95.9 Bacteremia R78.81
[2020-05-12 12:50] LABS: Glucose Point of Care 108 mg/dL (70-110)
--- NOTE | 2020-05-12 12:50 | PC.NURSE ---
1220 Dr. Alejandre did a JAXSON at bedside with anesthesia at bedside providing sedation. 1235 finished and patient awake. Tolerated well.
--- NOTE | 2020-05-12 13:15 | PC.NURSE ---
1150 one unit of PRBC infused with no reaction noted. Followed by Lasix 20 IVP as ordered.
[2020-05-12] MEDS: atorvastatin 40 mg Tablet 20 MG PO (13:33)
[2020-05-12] MEDS: calcium carbonate 500 mg Chew Tablet PO (13:34)
[2020-05-12] MEDS: fluticasone nasal spray 16gm Btl 2 SPRAY INTRANASAL (13:35)
[2020-05-12] MEDS: levothyroxine 125 mcg Tablet PO (13:36)
[2020-05-12] MEDS: potassium chloride ER 10 mEq Tablet 40 MEQ PO (13:39)
[2020-05-12] MEDS: metoprolol tartrate 25 mg Tablet 12.5 MG PO ×2 (13:39→17:30)
[2020-05-12] MEDS: venlafaxine ER (24HR) 150 mg Capsule PO (13:40)
--- NOTE | 2020-05-12 17:18 | P.PN_ITS ---
Subjective Subjective: Interval history: Bacteremia, cellulitis, PERRY. PIC line has been removed Medications: Reviewed: Yes Vitals/I&O/Wt Last Vital Signs Temp 98.4 F 05/12/20 16:00 Pulse 70 05/12/20 16:00 Resp 15 05/12/20 16:00 BP 127/91 05/12/20 16:00 Pulse Ox 97 05/12/20 16:00 05/12/20 05/12/20 05/12/20 06:59 14:59 22:59 Intake Total 350 / 2032 350 / 350 Output Total 180 / 956 400 / 400 Balance 170 / 1076 350 / 350 -400 / -50 Weight last 48 hrs Weight 121.835 kg Weight 117.651 kg Physical Exam Const: COMMON NORMALS: no acute distress GENERAL APPEARANCE: cooperative Urinary Catheter Management^: Patino: Cath Placed During This Visit: yes Reason for Continuing Indwelling Catheter: Accurate Measurement of Urinary Output in Critically Ill Patients Urinary Catheter Date of Insertion: 05/08/20 Urinary Catheter Time of Insertion: 13:00 Data : 05/12/20 03:40 05/12/20 03:40 Other Labs: Serum Cr 1.2, K 3.8, albumin 2.0, corrected Ca 9.2 Micro: Microbiology 05/11/20 08:30 Urine Culture - Preliminary Urine,Clean Catch Yeast 05/08/20 08:42 Blood Culture - Preliminary Blood Enterococcus faecium vre A&P Additional A&P Information 1. Acute kidney injury, much improved, good urine output. 2. Hypokalemia, resolved 3. Sepsis, Lower extremity cellulitis. Plan for arteriogram. Ok from renal [facility] to proceed at this time; hydrate pre. Will begin IVF in AM 4. Anemia, consider transfusion if Hb falls further Attestations Medical Necessity Statement*: per primary service Coding Level of Care Code Acute Powdered Sugar Supervisor for Darek Ojeda
[2020-05-12 17:25] LABS: Glucose Point of Care 175 mg/dL (70-110)
[2020-05-12] MEDS: morphine 4 mg/mL SDV 1 mL 2 MG IVP ×3 (18:11→23:22)
[2020-05-12 18:52] LABS: Glucose Point of Care 90 mg/dL (70-110)
[2020-05-12 20:14] LABS: Glucose Point of Care 67 mg/dL (70-110)
[2020-05-12] MEDS: hyDROXYzine 25 mg Capsule 50 MG PO (23:22)
[2020-05-13] VITALS (34 sets, daily range): BP systolic 81–167; BP diastolic 34–144; PULSE 66–117; RESP 10–38; TEMP 36.4–37.1; O2SAT 90–100
[2020-05-13] MEDS: OLANZapine 5 mg ODT PO (00:15)
[2020-05-13] MEDS: linezolid premix 600 MG/300 ML PREMIX 300 MG IV (02:00)
[2020-05-13] MEDS: piperacillin-tazobactam 3.375 GM in sodium chloride 0.9% (plus) 50 ML IV ×3 (02:54→18:23)
[2020-05-13 04:36] LABS: Basophils % 0.3 %; Eosinophils # 0.6 10^3/uL (0.0-0.8); Eosinophils % 4.8 %; Hematocrit 28.7 % (37.0-47.0); Hemoglobin 8.9 g/dL (11.5-15.3); Lymphocytes # 3.1 10^3/uL (0.8-4.8); Lymphocytes % 24.7 %; Mean Corpuscular Hemoglobin 28.8 pg (28.0-34.0); Mean Corpuscular Volume 92.9 fL (81-99); Mean Platelet Volume 8.8 fL (7.4-10.4); Monocytes # 0.9 10^3/uL (0.2-0.9); Monocytes % 7.1 %; Neutrophils % 62.6 %; Nucleated Red Blood Cells % 0 %; Platelet Count 291 10^3/cmm (130-400); Red Blood Count 3.09 10^6/uL (4.1-5.3); Red Cell Distribution Width 18.1 % (12.1-15.1); White Blood Count 12.6 10^3/uL (4.0-10.0)
[2020-05-13 05:04] LABS: Anion Gap 13.9 (5-19); Blood Urea Nitrogen 16 mg/dL (8-23); Calcium 7.7 mg/dL (8.5-10.5); Carbon Dioxide 19 mmol/L (22-29); Chloride 110 mmol/L (98-107); Glucose 77 mg/dL (65-115); Osmolality Calculated 283 mOsm/kg (285-295); Potassium 3.9 mmol/L (3.5-5.1); Sodium 139 mmol/L (136-145)
--- NOTE | 2020-05-13 05:43 | PC.NURSE ---
Patient unable to sleep this night. Patient kept pulling telemetry, clothes and covers off through the night, very pleasantly confused. Repositioned for comfort. Gown and bedding changed. Redirected patient to leave clothes on. Patient stated, I want to be ready for the doctor, then I am going to go buy a new truck today. Encouraged patient to rest. Patient stated, I am bright eyed and bushy tailed this morning.
[2020-05-13 06:07] LABS: Glucose Point of Care 75 mg/dL (70-110)
--- NOTE | 2020-05-13 09:18 | PC.SOCIAL ---
IMM Updated Updated pt on Pg 2 IMM. Copy provided to pt. Signed, dated, & timed copy in chart.
--- NOTE | 2020-05-13 09:20 | PC.NURSE ---
patient had difficulty taking po medications at this time even though placed in [employer] patient pocketed food and meds in cheek she did swallow some meds but not all patient spit them into water cup after this nurse checked mouth patient stated they just come back up.
[2020-05-13] MEDS: potassium chloride ER 10 mEq Tablet 40 MEQ PO (09:29)
[2020-05-13] MEDS: sodium chloride 0.45% 1,000 ML 100 ML IV (09:29)
[2020-05-13] MEDS: oxyCODONE-APAP 10-325 mg Tablet 1 TAB PO (09:30)
[2020-05-13] MEDS: calcium carbonate 500 mg Chew Tablet PO (09:30)
[2020-05-13] MEDS: levothyroxine 125 mcg Tablet PO (09:30)
[2020-05-13] MEDS: metoprolol tartrate 25 mg Tablet 12.5 MG PO (09:30)
[2020-05-13] MEDS: venlafaxine ER (24HR) 150 mg Capsule PO (09:30)
[2020-05-13] MEDS: atorvastatin 40 mg Tablet 20 MG PO (09:31)
[2020-05-13] MEDS: fluticasone nasal spray 16gm Btl 2 SPRAY INTRANASAL (09:33)
[2020-05-13] MEDS: pantoprazole 40 mg SDV IVP (09:33)
--- NOTE | 2020-05-13 09:40 | P.PN_ITS ---
Subjective Subjective: Interval history: Leatha reports she has a little bit of pain in her leg, but is otherwise doing okay. Sitter is present with her, and reports she has been confused but not agitated. This is her baseline. Medications: Reviewed: Yes Vitals/I&O/Wt Last Vital Signs Temp 98.1 F 05/13/20 06:53 Pulse 106 H 05/13/20 06:53 Resp 18 05/13/20 09:30 BP 116/80 05/13/20 06:53 Pulse Ox 97 05/13/20 06:53 05/12/20 05/13/20 05/13/20 22:59 06:59 14:59 Intake Total 350 / 700 450 / 1150 50 / 50 Output Total 400 / 400 275 / 675 Balance -50 / 300 175 / 475 50 / 50 Weight last 48 hrs Weight 115.757 kg Weight 121.835 kg Physical Exam Narrative: EXAM NARRATIVE: General exam is a white female, conversant Cardiovascular regular rate and rhythm, no murmur Lungs clear Abdomen is soft, obese Extremities no cyanosis or clubbing. Left lower extremity with multiple eschars. Toes cool. Cap refill around 2 seconds. Urinary Catheter Management^: Patino: Cath Placed During This Visit: yes Reason for Continuing Indwelling Catheter: Accurate Measurement of Urinary Output in Critically Ill Patients Urinary Catheter Date of Insertion: 05/08/20 Urinary Catheter Time of Insertion: 13:00 Data : 05/13/20 03:30 05/13/20 03:30 Micro: Microbiology 05/13/20 06:30 Occult Blood (FIT) - Final Stool Routine Collection 05/11/20 08:30 Urine Culture - Preliminary Urine,Clean Catch Yeast 05/08/20 08:42 Blood Culture - Preliminary Blood Enterococcus faecium vre A&P Assessment and plan (1) Sepsis: History of recurrent sepsis, but with different organisms Patient reports PICC line has been in for the last 3 to 4 weeks May 11 and secondary to bacteremia with enterococcus and tip will be cultured Last admission had UTI with ESBL Currently source of infection may be left lower extremity cellulitis, areas of necrosis however cannot rule out PICC line infection. Urinalysis, dip appeared normal but no micro was done or canceled. . PICC line removed Continue linezolid, Zosyn Leukocytosis has resolved Pressors have been weaned off Repeat blood cultures are negative to date Blood culture grew vancomycin-resistant enterococcus, sensitive to linezolid. JAXSON was performed and negative. She will receive 2 weeks of IV linezolid f ollowing removal of the IV line. This can be done through the mid line in place. Status: Acute Qualifiers: Sepsis type: sepsis due to unspecified organism Sepsis acute organ dysfunction status: with acute organ dysfunction Severe sepsis acute organ dysfunction type: acute respiratory failure Acute respiratory failure type: unspecified Severe sepsis shock status: with septic shock Qualified Code(s): A41.9 - Sepsis, unspecified organism; R65.21 - Severe sepsis with septic shock; J96.00 - Acute respiratory failure, unspecified whether with hypoxia or hypercapnia (2) Sepsis associated hypotension: Resolved Status: Acute (3) Critical lower limb ischemia: Appreciate cardiology consult. Angiogram planned today Status: Acute (4) Acute metabolic encephalopathy: Currently back at baseline. Does have some vascular dementia at baseline according to old records. Status: Acute (5) Acute kidney injury: Acute kidney injury has resolved. Hold renal toxic medications Appreciate nephrology consultation Continue Patino Status: Acute (6) Cellulitis: Continue Zosyn, linezolid PICC line discontinued, midline in place Status: Acute Qualifiers: Laterality: left Site of cellulitis: extremity Site of cellulitis of extremity: lower extremity Qualified Code(s): L03.116 - Cellulitis of left lower limb (7) Peripheral vascular disease: Angiogram planned today Status: Chronic (8) Bilateral leg ulcer: Appreciate surgical debridement Status: Chronic Qualifiers: Non-pressure ulcer stage: unspecified non-pressure ulcer stage Qualified Code(s): L97.919 - Non-pressure chronic ulcer of unspecified part of right lower leg with unspecified severity; L97.929 - Non-pressure chronic ulcer of unspecified part of left lower leg with unspecified severity (9) Acute on chronic anemia: Hemoglobin continues to decrease. Transfuse 1 unit packed red blood cells May 12 Stool was checked and Hemoccult positive Discontinue subcutaneous heparin At this point not good candidate for EGD and colonoscopy so we will place on Protonix Status: Acute (10) Chronic kidney disease, stage 3: Status: Chronic (11) Hypertension: Holding secondary to sepsis and hypotension Status: Chronic Qualifiers: Hypertension type: essential hypertension Qualified Code(s): I10 - Essential (primary) hypertension (12) COPD (chronic obstructive pulmonary disease): Currently without exacerbation Status: Chronic Qualifiers: COPD type: emphysema Emphysema type: unspecified Qualified Code(s): J43.9 - Emphysema, unspecified (13) Vascular dementia: Status: Chronic Qualifiers: Dementia behavioral disturbance: with behavioral disturbance Qualified Code(s): F01.51 - Vascular dementia with behavioral disturbance (14) Type 2 diabetes mellitus: Sliding scale insulin Status: Chronic Qualifiers: Diabetes mellitus complication status: with other specified complication Diabetes mellitus custodial insulin use: without senior benefits manager use Qualified Code(s): E11.69 - Type 2 diabetes mellitus with other specified complication (15) Hypothyroidism: Continue home meds Status: Chronic Qualifiers: Hypothyroidism type: unspecified Qualified Code(s): E03.9 - Hypothyroidism, unspecified Additional A&P Information Atrial fibrillation. Continue metoprolol 12.5 mg twice daily. Not candidate for anticoagulation Hypokalemia, resolved -GERD; on PPI GERD Morbid obesity Hyperlipidemia, on statin Chronic pain on narcotics Full code Disposition nursing facility [facility] DVT prophylaxis no anticoagulation secondary to anemia requiring transfusion, heme positive stool. SCDs contraindicated with peripheral vascular disease. Attestations Medical Necessity Statement*: Needs continued hospital stay for IV antibiotics secondary to bacteremia, evaluation of peripheral vascular disease. Coding Level of Care Code Acute Tubular Products Fabricator for [facility] Diagnoses Sepsis A41.9; R65.21; J96.00 Sepsis type: sepsis due to unspecified organism Sepsis acute organ dysfunction status: with acute organ dysfunction Severe sepsis acute organ dysfunction type: acute respiratory failure Acute respiratory failure type: unspecified Severe sepsis shock status: with septic shock Sepsis associated hypotension A41.9; I95.9 Critical lower limb ischemia I99.8 Acute metabolic encephalopathy G93.41 Acute kidney injury N17.9 Cellulitis L03.116 Laterality: left Site of cellulitis: extremity Site of cellulitis of extremity: lower extremity Peripheral vascular disease I73.9 Bilateral leg ulcer L97.919; L97.929 Non-pressure ulcer stage: unspecified non-pressure ulcer stage Acute on chronic anemia D64.9 Chronic kidney disease, stage 3 N18.3 Hypertension I10 Hypertension type: essential hypertension COPD (chronic obstructive pulmonary disease) J43.9 COPD type: emphysema Emphysema type: unspecified Vascular dementia F01.51 Dementia behavioral disturbance: with behavioral disturbance Type 2 diabetes mellitus E11.69 Diabetes mellitus complication status: with other specified complication Diabetes mellitus senior benefits manager insulin use: without custodial use Hypothyroidism E03.9 Hypothyroidism type: unspecified
[2020-05-13 11:02] LABS: Glucose Point of Care 81 mg/dL (70-110)
--- NOTE | 2020-05-13 11:30 | XACV_ITS ---
Ht: 160 cm Wt: 116 kg BSA: 2.34 m2 Any Known Allergies: Hydrocodone Gender: Female : 1950 Exam Type: Invasive Peripheral Vascular Procedure(s): Procedure Description: Peripheral Cath Diagnostic Procedure Procedure Description: Lower extremities' angiography Exam Priority: Routine Conclusions Indication for peripheral angiogram: Nonhealing left foot ulcer with osteomyelitis status post debridement. This is a 70-year-old female past medical history significant for uncontrolled diabetes mellitus with recurrent nonhealing left foot ulcer was referred to us for peripheral angiogram. Due to worsening of renal function we waited for few days with IV fluid when her creatinine become normal we proceeded with peripheral angiogram.Please note that patient was not cooperative and moving on the table. She has hardware in the left leg and she cannot put her leg straight therefore it is difficult for us to take the pictures. Lot of artifacts was noted. Anesthesia was called for the help with propofol.Abdominal aortogram: No significant stenosis or aneurysm noted in the abdominal aorta. Left renal artery was visualized. It appeared to be normal. Right renal artery was not well-visualized.Bilateral normal common iliac, bilateral normal external iliac, left internal iliac has luminal irregularities. Left common femoral has luminal irregularity. Left SFA and profunda femoral arteries have no significant stenosis. Left poplitea artery and tibial peroneal trunk was not well-visualized due to hardware since patient has good below the knee blood supply I resume it is normal without significant stenosis.. Good two-vessel runoff was noted up to the foot. No significant vascular compromise was noted. Please note that patient was not cooperative and moving around despite of light propofol. Access Site Site: Right Femoral artery Sheath Size: 6 Fr Hemost... Method: Manual Compression Hemost... Success: Successful Procedure Details Findings Procedure Consent Obtained. Baseline sample Acquired. HR: 0 BPM. Pre-Procedure Time Out. Identified patient by full name and date of as verbalized by the patient/guarantor. Does the consent match the physician's order: Yes. Accurate & Complete Informed Consent: Yes. Inpatient/Outpatient History & Physical on Chart: Yes. If H&P is completed, is and addenduem needed: No; If yes, is the addendum complete: N/A. Visualize and Verify Site with Patient/Guarantor: N/A. Relevant Radiology Images available: Yes. Pre-op teaching completed and patient verbalized understanding. The risks, benefits, and alternatives of sedation and/or procedure were discussed by physician. The patient agrees to continue. Procedure started. IV Site on Arrival: 20 gauge in the left anticubital. Pre Procedural Pulses: bilateral dorsalis pedis was Doppled. Pre Procedural Pulses: bilateral posterior tibial was Doppled. Pre Procedural Pulses: bilateral radial was 2+. Oxygen started at 2liters/min via nasal canula. bilateral groins was prepped with chloroprep then draped in the usual sterile fashion. Physician notified. Baseline sample Acquired. HR: 197 BPM. Anesthesia contacted. Anesthesia arrived to provide sedation for case. PERRLA. 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 Lungs clear x 5 lobes. Baseline sample Acquired. HR: 165 BPM. Equipment: 6F - Femoral. Cardiac Cath Pack. ACIST Manifold Kit Model BT 2000. Heparinized Saline (2 units/mL), 1000 mL bag. Kit, Micropuncture. Physician scrubbed in. Immediate Pre-Procedure Time Out. Correct Patient: Yes; Correct Procedure: Yes; Correct Site: Yes; Correct Patient Position: Yes; Correct Supplies: Yes; Dried Flammable Prep: Yes; Blood Products Available: No;. Lidocaine 1% infiltrated to the right groin. Arterial access obtained with micropuncture set. A 5FrFr UF catheter in over wire. Left leg runoff performed at 10mL for a total of 30mL. Glidewire removed. Catheter out. Hand injection performed. Sheath(s) removed and manual pressure held until hemostasis was achieved. Sterile 4x4 and Op-site applied to the puncture site. No oozing or hematoma noted. Post sheath removal instructions were given and the patient verbalized understanding. A Manual Compression was successful obtaining hemostatsis at the Right Femoral artery insertion site. Post Procedure: Pulses reassessed and unchanged. PERRLA. 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 No VTE prophylaxis required. Total IV fluids: 100 mL. Contrast type used: Visipaque 320 mgI/mL, 500 mL bottle. Post-op diagnosis: Normal. Complications: None. Estimated blood loss: 5mL-10mL. Vital chart was stopped. Patient transferred by bed to 1st floor. Procedure completed. I, the attending physician, have reviewed and verified all procedure medications. Yes, all medications given per verbal order History/Risk Factors Hypertension: Yes Dyslipidemia: No Diabetic Therapy: Insulin Peripheral Arterial Disease (PAD): Yes Myocardial Infarction ([place]): No Obesity: No Renal Disease: Yes Tobacco Use: Never Prior Interventions PCI: No CABG: No Valve Surgery: No Report Signatures Finalized by:Elver Alejandre MD on 05/23/2020 3:36:36 PM
--- NOTE | 2020-05-13 11:30 | PC.NURSE ---
patient off floor for peripheral cath at this time
--- NOTE | 2020-05-13 11:52 | PC.NURSE ---
Dr. Alejandre called josh Lopez to verify verbal consent to treat patient, patient also agreed to procedure, Nurse witnessed phone call and also heard patients josh Lopez DPARTHUR give verbal consent to go ahead with the procedure that Dr. Alejandre explained including the risks and benefits.
--- NOTE | 2020-05-13 11:57 | P.HPUD_ITS ---
Surgery/Procedure H&P Update DATE OF PROCEDURE: May 13, 2020 DATE H&P PERFORMED: 05/12/20 H&P UPDATE INFORMATION: I have reviewed H&P completed within last 30 days, I have examined patient prior to procedure and No changes to prior documentation PREOP DIAGNOSIS: Multiple eschars on left lower leg. Critical limb ischemia of left leg and foot. Nonhealing ulcer PLANNED PROCEDURE: Operation Date: 05/10/20 11:15 Proposed Procedures p Debridement(Left) - Surya Russo MD Operation Date: 05/13/20 11:30 Proposed Procedures p Peripheral Diagnostic(Not Applicable) - Elver Alejandre MD Please see anesthesia note. Patient is not able to lay flat and still she need to be sedated. Anesthesia was consulted AIRWAY EVAL/ANESTHESIA PLAN: Risks, benefits & alternatives of sedation and/or procedure discussed and Patient agrees to continue as planned ADDITIONAL INFORMATION: I have personally explained patient in person at 3 different occasions and her son John over the phone regarding all risk benefit and alternative for the procedure. They understand the risk of sedation leading to intubation and respiratory depression, they understand risk of contrast- induced nephropathy leading to transient or permanent dialysis. They would like to proceed with it.
--- NOTE | 2020-05-13 12:04 | PM.PN ---
Subjective Subjective: Interval history: Patient underwent peripheral angiogram. No significant obstructive disease noted. She has good two-vessel runoff to left foot. Medications: Reviewed: Yes Medication Review Details: Active Medications Generic Name Dose Route Start Last Admin Trade Name Freq PRN Reason Stop Dose Admin Acetaminophen 650 mg 05/08/20 12:30 05/09/20 15:27 Tylenol PO 650 mg Q6H PRN Administration MILD PAIN Acetaminophen 650 mg 05/08/20 13:26 Tylenol PO QID PRN Pain Albuterol Sulfate 2.5 mg 05/10/20 06:40 Albuterol INHALATION ONCE PRN WHEEZING Albuterol/Ipratrop ium 3 ml 05/08/20 15:00 Duoneb INHALATION Q6H.RESPIRATORY P RN SHORTNESS OF NIECY TH Atorvastatin Calci um 20 mg 05/09/20 09:00 05/09/20 08:58 Lipitor PO 20 mg DAILY SWATI Administration Calcium Carbonate 500 mg 05/09/20 09:00 05/09/20 08:58 Tums PO 500 mg DAILY SWATI Administration Collagenase 1 applic 05/09/20 09:00 05/09/20 14:52 Santyl TOPICAL Not Given DAILY SWATI Dextrose 25 ml 05/08/20 15:47 D50w IVP ONCE PRN hypoglycemia prot ocol Protocol Dextrose 50 ml 05/08/20 15:47 D50w IVP PRN PRN hypoglycemia prot ocol Protocol Fentanyl 50 mcg 05/10/20 06:40 Sublimaze IVP Q10M PRN Preop Pain Fluticasone Propio jovan 2 spray 05/09/20 09:00 05/09/20 08:59 Flonase INTRANASAL 2 spray DAILY SWATI Administration Glucagon 1 mg 05/08/20 15:47 Glucagen IM ONCE PRN Adult Acute Hypog lycemia Prot. Protocol Heparin Sodium (Be ef Lung) 5,000 unit 05/08/20 13:00 05/10/20 00:14 Heparin SUBCUT Not Given Q12H SWATI Hydroxyzine Pamoat e 50 mg 05/08/20 13:51 05/09/20 02:31 Vistaril PO 50 mg QID PRN Administration Anxiety Norepinephrine Bit artrate 4 mg 254 mls @ 0 mls/h r 05/08/20 12:45 05/10/20 07:29 / Dextrose IV 4 mcg/min .Q0M SWATI 15.2 mls/hr Titration Protocol Per Protocol Piperacillin Sod/T azobactam 50 mls @ 12.5 mls /hr 05/08/20 21:30 05/10/20 07:28 Sod 3.375 gm/ So dium Chloride IV Infused Q12H SWATI Infusion Protocol Linezolid 600 mg in 300 mls @ 300 mls/hr 05/08/20 15:00 05/10/20 07:28 Zyvox Premix IV Infused Q12H SWATI Infusion Protocol Dextrose 500 mls @ 100 mls /hr 05/08/20 15:47 D5w IV ONCE PRN Adult Acute Hypog lycemia Prot Protocol Lactated Ringer's 1,000 mls @ 75 ml s/hr 05/09/20 10:15 05/09/20 23:02 Lactated Ringers IV 75 mls/hr .[id number] SWATI Administration Sodium Chloride 1,000 mls @ 30 ml s/hr 05/10/20 06:45 05/10/20 07:00 Sodium Chloride 0.9% IV 05/11/20 06:44 30 mls/hr .Q24H SWATI Administration Insulin Aspart 0 unit 05/08/20 21:00 05/09/20 17:19 Novolog SUBCUT 4 unit BEDTIME SWATI Administration Protocol Insulin Aspart 0 unit 05/08/20 18:00 05/09/20 17:22 Novolog SUBCUT 4 unit TIDWM SWATI Administration Protocol Ipratropium Bromid e 0.5 mg 05/10/20 06:40 Atrovent Neb INHALATION ONCE PRN WHEEZING Lactulose 20 gm 05/08/20 14:15 Constulose PO DAILY PRN Constipation Levothyroxine Sodi um 125 mcg 05/09/20 09:00 05/09/20 09:00 Synthroid PO 125 mcg DAILY SWATI Administration Lidocaine HCl 1 applic 05/08/20 13:26 Lidocaine 2% Jel ly TOPICAL DAILY PRN TOPICAL Pain Lidocaine HCl 15 ml 05/08/20 13:26 Lidocaine 2% Vis cous MUCOUS MEM QID PRN MOUTH Pain Metoprolol Tartrat e 75 mg 05/08/20 18:00 05/09/20 17:13 Lopressor PO Not Given BID SWATI Morphine Sulfate 2 mg 05/08/20 12:30 05/09/20 02:17 Morphine IVP 2 mg Q4H PRN Administration SEVERE PAIN Naloxone HCl 0.1 mg 05/08/20 12:30 Narcan IVP Q2M PRN RESPIRATORY RATE < 8/MIN Non-Formulary Medi cation 1 each 05/09/20 09:00 Amino Acids-Prot ein Hydrolys [Pro- Stat Awc] PO DAILY SWATI Non-Formulary Medi cation 1 inh 05/09/20 09:00 Fluticasone Furo ate-Vilanterol [Br eo Ellipta] INHALATION DAILY SWATI Nystatin 1 applic 05/08/20 18:00 05/09/20 17:24 Nystatin Powder TOPICAL 1 applic BID SWATI Administration Olanzapine 5 mg 05/09/20 21:00 05/09/20 20:52 Zyprexa Zydis PO 5 mg BEDTIME SWATI Administration Ondansetron HCl 4 mg 05/08/20 12:30 Zofran IVP Q6H PRN NAUSEA AND VOMITI NG Ondansetron HCl 4 mg 05/10/20 06:40 Zofran IVP Q5M PRN NAUSEA AND VOMITI NG Oxycodone/Acetamin ophen 1 tab 05/08/20 13:26 Percocet 10-325 Mg PO Q4H PRN Pain Pantoprazole Sodiu m 40 mg 05/08/20 13:00 05/09/20 09:00 Protonix IVP 40 mg DAILY SWATI Administration Silver Sulfadiazin e 1 applic 05/09/20 11:00 05/09/20 17:25 Silvadene TOPICAL 1 applic BID SWATI Administration Tramadol HCl 50 mg 05/08/20 13:26 Ultram PO Q8H PRN Pain Venlafaxine HCl 150 mg 05/09/20 09:00 Effexor Xr PO DAILY [facility] clarithromycin Allergy (Unknown, Verified 04/16/20 14:33) Unknown hydrocodone Allergy (Unknown, Verified 04/16/20 14:33) Unknown metformin Allergy (Unknown, Verified 04/16/20 14:33) Unknown sitagliptin [From Januvia] Allergy (Unknown, Verified 04/16/20 14:33) Unknown tetanus and diphtheria toxoids Allergy (Unknown, Verified 04/16/20 14:33) Unknown triamcinolone Allergy (Unknown, Verified 04/16/20 14:33) Unknown Vitals/I&O/Wt Last Vital Signs Temp 98.7 F 05/13/20 10:36 Pulse 96 05/13/20 10:36 Resp 12 05/13/20 10:36 BP 114/56 05/13/20 10:36 Pulse Ox 90 05/13/20 10:36 05/12/20 05/13/20 05/13/20 22:59 06:59 14:59 Intake Total 350 / 700 450 / 1150 50 / 50 Output Total 400 / 400 275 / 675 Balance -50 / 300 175 / 475 50 / 50 Weight last 48 hrs Weight 255 lb 3.2 oz Weight 268 lb 9.6 oz Physical Exam Narrative: EXAM NARRATIVE: GENERAL: Patient is oriented and awake NECK: No jugular vein distension. HEENT: No cyanosis. No icterus. No pallor. HEART: Regular S1 and S2. No murmur, rub or gallop. LUNGS: Clear to auscultate bilaterally. ABDOMEN: Soft, nontender and nondistended. Positive bowel sounds. No guarding, rebound or tenderness. CENTRAL NERVOUS SYSTEM: Grossly nonfocal. EXTREMITIES: Left leg swollen wrapped with nonhealing foot ulcer nonpalpable pulses but temperature of foot is normal with ruborous appearance Urinary Catheter Management^: Patino: Cath Placed During This Visit: yes Reason for Continuing Indwelling Catheter: Accurate Measurement of Urinary Output in Critically Ill Patients Urinary Catheter Date of Insertion: 05/08/20 Urinary Catheter Time of Insertion: 13:00 Data : 05/13/20 03:30 05/13/20 03:30 Micro: Microbiology 05/11/20 08:30 Urine Culture - Preliminary Urine,Clean Catch Yeast 05/13/20 06:30 Occult Blood (FIT) - Final Stool Routine Collection 05/08/20 08:42 Blood Culture - Preliminary Blood Enterococcus faecium vre A&P Assessment and plan (1) Critical lower limb ischemia: Status post peripheral angiogram did not reveal any significant vascular compromise. She has good flow through common iliacs, femoral, SFA, profunda, popliteal, tibioperoneal trunk and good two-vessel runoff below the knee. Continue antibiotics Status: Acute (2) Acute kidney injury: Continues to improve. Recommendation as per nephrology Status: Acute (3) Atrial fibrillation: Rate controlled. Will continue same Status: Acute (4) Sepsis associated hypotension: Improved and resolved. Continue IV fluid and antibiotics as per medicine Status: Acute (5) Bacteremia: Continue IV antibiotics. No cardiac source of bacteremia noted. Status: Acute Attestations Medical Necessity Statement*: Patient require continuation hospitalization for above defined care. Coding Level of Care Code Established Pt Acute Supervisor [facility] for Darek Ojeda Patient Type Established History Expanded Problem Focused Exam Expanded Problem Focused Medical Decision Making Moderate Complexity Diagnoses Critical lower limb ischemia I99.8 Acute kidney injury N17.9 Atrial fibrillation I48.91 Sepsis associated hypotension A41.9; I95.9 Bacteremia R78.81
--- NOTE | 2020-05-13 13:16 | PC.NURSE ---
patient back from procedure sheath removed by slab lifting engineer nurses no hematoma noted
--- NOTE | 2020-05-13 15:12 | PC.OT ---
OT Note: Pt s/p procedure, RN requested hold. OT will attempt to see pt tomorrow for tx as able.
[2020-05-13] MEDS: linezolid 600 mg Tablet PO (15:21)
[2020-05-13 16:10] LABS: Glucose Point of Care 65 mg/dL (70-110)
[2020-05-13] MEDS: dextrose 5 % 500 ML 100 ML IV (16:28)
--- NOTE | 2020-05-13 17:39 | PC.NURSE ---
crushed abx in apple sauce to aide with swallowing of medication patient pocketed apple sauce and refused to swallow patient encouraged and throat massaged to aid in swallowing each time patient shaking head no cheeks puffed out and swallowing appears to be happening although nothing is leaving mouth patient encouraged to spit out apple sauce to keep patient from chocking patient refuses to spit A finger sweep performed dr granger notified instructions obtain a speech eval and treat and begin d5w at 100mls per hour
[2020-05-13 18:09] LABS: Glucose Point of Care 73 mg/dL (70-110)
[2020-05-13] MEDS: oxyCODONE-APAP 5-325 mg Tablet 1 TAB PO (21:13)
[2020-05-13 21:40] LABS: Glucose Point of Care 84 mg/dL (70-110)
[2020-05-13 21:40] LABS: Glucose Point of Care 72 mg/dL (70-110)
[2020-05-13] MEDS: dextrose 5% 1,000 ML 30 ML IV (22:34)
--- NOTE | 2020-05-13 22:55 | PC.NURSE ---
PT IS IN BED PULLING AT WIRES AND ZABALA. PT DENIES PAIN BUT HAS FACIAL GRIMACE. PRN OXYCODONE WAS GIVEN FOR PAIN. PT WAS TURNED AND REPOSITIONED. WILL CONTINUE TO MONITOR.
[2020-05-14] VITALS (16 sets, daily range): BP systolic 83–140; BP diastolic 44–93; PULSE 72–129; RESP 13–28; TEMP 36.6–37.2; O2SAT 93–97
[2020-05-14] MEDS: piperacillin-tazobactam 3.375 GM in sodium chloride 0.9% (plus) 50 ML IV ×3 (02:51→17:51)
[2020-05-14 03:08] LABS: Glucose Point of Care 71 mg/dL (70-110)
[2020-05-14 05:02] LABS: Blood Urea Nitrogen 14 mg/dL (8-23); Calcium 7.9 mg/dL (8.5-10.5); Carbon Dioxide 18 mmol/L (22-29); Chloride 109 mmol/L (98-107); Glucose 60 mg/dL (65-115); Osmolality Calculated 280 mOsm/kg (285-295); Sodium 138 mmol/L (136-145)
[2020-05-14 05:04] LABS: Anion Gap 15.2 (5-19); Potassium 4.2 mmol/L (3.5-5.1)
[2020-05-14] MEDS: oxyCODONE-APAP 5-325 mg Tablet 1 TAB PO ×3 (05:58→22:19)
--- NOTE | 2020-05-14 06:03 | PC.NURSE ---
PT TURNED AND REPOSITIONED AT THIS TIME. PT C/O 7/10 PAIN IN LEFT LEG. PRN OXYCODONE WAS GIVEN. WILL CONTINUE TO MONITOR.
[2020-05-14 06:14] LABS: Basophils % 0.3 %; Eosinophils # 0.6 10^3/uL (0.0-0.8); Hematocrit 29.2 % (37.0-47.0); Hemoglobin 9.4 g/dL (11.5-15.3); Lymphocytes # 3.1 10^3/uL (0.8-4.8); Lymphocytes % 24.5 %; Mean Corpuscular HGB Conc 32.2 g/dL (30.0-36.0); Mean Corpuscular Hemoglobin 29.1 pg (28.0-34.0); Mean Corpuscular Volume 90.4 fL (81-99); Mean Platelet Volume 8.7 fL (7.4-10.4); Monocytes # 0.7 10^3/uL (0.2-0.9); Monocytes % 5.4 %; Neutrophils # 8.16 10^3/uL (1.8-7.7); Neutrophils % 64.3 %; Nucleated Red Blood Cells % 0 %; Platelet Count 352 10^3/cmm (130-400); Red Blood Count 3.23 10^6/uL (4.1-5.3); Red Cell Distribution Width 17.9 % (12.1-15.1); White Blood Count 12.7 10^3/uL (4.0-10.0)
[2020-05-14] MEDS: collagenase oint 30 gm 1 APPLIC TOPICAL (06:28)
[2020-05-14 06:32] LABS: Glucose Point of Care 75 mg/dL (70-110)
--- NOTE | 2020-05-14 08:43 | P.PN_ITS ---
Subjective Subjective: Interval history: The patient says her left leg continues to feel better. It appears that nursing has gotten in the habit of changing her daily dressing on maintenance supervisor 2nd shift, so I have not actually seen her wounds in a couple of days. Her dressing today is intact and has no drainage coming through at any site. Vitals/I&O/Wt Last Vital Signs Temp 97.8 F 05/14/20 06:50 Pulse 129 H 05/14/20 06:50 Resp 18 05/14/20 06:50 BP 119/93 05/14/20 06:50 Pulse Ox 93 05/14/20 06:50 05/13/20 05/14/20 05/14/20 22:59 06:59 14:59 Intake Total 1831.667 / 1881.667 0 / 1881.667 Output Total 800 / 1150 350 / 1150 Balance 1031.667 / 731.667 -350 / 731.667 Weight last 48 hrs Weight 257 lb 1.6 oz Weight 255 lb 3.2 oz Physical Exam Narrative: EXAM NARRATIVE: As above. Urinary Catheter Management^: Patino: Cath Placed During This Visit: yes Reason for Continuing Indwelling Catheter: Accurate Measurement of Urinary Output in Critically Ill Patients Urinary Catheter Date of Insertion: 05/08/20 Urinary Catheter Time of Insertion: 13:00 Data : 05/14/20 05:57 05/14/20 03:12 Micro: Microbiology 05/08/20 08:50 Blood Culture - Final Blood Enterococcus faecium vre 05/08/20 08:42 Blood Culture - Final Blood Enterococcus faecium vre 05/11/20 13:50 Catheter Tip Culture - Preliminary Picc Line 05/11/20 08:30 Urine Culture - Preliminary Urine,Clean Catch Yeast 05/13/20 06:30 Occult Blood (FIT) - Final Stool Routine Collection A&P Assessment and plan (1) Leg ulcer, left: Status post debridement of eschars on 05/10/2020. I did confirm daily dressing changes utilizing Santyl with nursing yesterday. Continue wound care. Patient to continue following-up in wound clinic as before. Status: Acute Attestations Medical Necessity Statement*: See admitting service's notation. Coding Level of Care Code Acute Medical Biller for Darek Ojeda Diagnoses Leg ulcer, left L97.929
--- NOTE | 2020-05-14 10:30 | PC.NURSE ---
Physician states patient is more alert and conversational today. Will attempt giving oral meds with pudding or applesaus to facilitate swallowing.
[2020-05-14] MEDS: metoprolol tartrate 25 mg Tablet 37.5 MG PO (10:47)
[2020-05-14] MEDS: pantoprazole DR 40 mg Tablet PO ×2 (10:51→17:51)
[2020-05-14] MEDS: potassium chloride ER 10 mEq Tablet 40 MEQ PO (10:51)
[2020-05-14] MEDS: atorvastatin 40 mg Tablet 20 MG PO (10:52)
[2020-05-14] MEDS: venlafaxine ER (24HR) 150 mg Capsule PO (10:53)
[2020-05-14] MEDS: calcium carbonate 500 mg Chew Tablet PO (10:53)
[2020-05-14] MEDS: levothyroxine 125 mcg Tablet PO (11:02)
[2020-05-14] MEDS: fluticasone nasal spray 16gm Btl 2 SPRAY INTRANASAL (11:03)
[2020-05-14] MEDS: sodium chloride 0.9% 1,000 ML 50 ML IV (11:20)
--- NOTE | 2020-05-14 11:30 | PC.NURSE ---
Patient placed in sitting position in the bed. Patient able to take po meds in pudding. Appears to swallow without difficulty. Able to take sips of water between pills, No coughing when taking oral meds.
[2020-05-14 11:37] LABS: Glucose Point of Care 77 mg/dL (70-110)
--- NOTE | 2020-05-14 11:59 | PM.PN ---
Subjective Subjective: Interval history: Leatha was awake and alert when I visited with her, knew my name. Nursing has been having issues with her taking her medicine, as she tends to pocket food as well as medication. Medications: Reviewed: Yes Vitals/I&O/Wt Last Vital Signs Temp 98.3 F 05/14/20 10:41 Pulse 118 H 05/14/20 10:56 Resp 20 H 05/14/20 10:56 BP 129/71 05/14/20 10:41 Pulse Ox 94 05/14/20 10:56 05/13/20 05/14/20 05/14/20 22:59 06:59 14:59 Intake Total 1831.667 / 1881.667 50 / 1931.667 0 / 0 Output Total 800 / 800 350 / 1150 Balance 1031.667 / 1081.667 -300 / 781.667 0 / 0 Weight last 48 hrs Weight 116.619 kg Weight 115.757 kg Physical Exam Narrative: EXAM NARRATIVE: General exam is a white female, conversant Cardiovascular regular rate and rhythm, no murmur Lungs clear Abdomen is soft, obese Extremities no cyanosis or clubbing. Left lower extremity with multiple eschars. Cap refill less than 2 seconds Urinary Catheter Management^: Patino: Cath Placed During This Visit: yes Reason for Continuing Indwelling Catheter: Accurate Measurement of Urinary Output in Critically Ill Patients Urinary Catheter Date of Insertion: 05/08/20 Urinary Catheter Time of Insertion: 13:00 Data : 05/14/20 05:57 05/14/20 03:12 Micro: Microbiology 05/08/20 08:50 Blood Culture - Final Blood Enterococcus faecium vre 05/08/20 08:42 Blood Culture - Final Blood Enterococcus faecium vre 05/11/20 13:50 Catheter Tip Culture - Preliminary Picc Line 05/11/20 08:30 Urine Culture - Preliminary Urine,Clean Catch Yeast 05/13/20 06:30 Occult Blood (FIT) - Final Stool Routine Collection A&P Assessment and plan (1) Sepsis: History of recurrent sepsis, but with different organisms Patient reports PICC line has been in for the last 3 to 4 weeks May 11 and secondary to bacteremia with enterococcus and tip will be cultured Last admission had UTI with ESBL Currently source of infection may be left lower extremity cellulitis, areas of necrosis however cannot rule out PICC line infection. Urinalysis, dip appeared normal but no micro was done or canceled. . PICC line removed Continue linezolid, Zosyn Pressors have been weaned off Repeat blood cultures are negative to date Blood culture grew vancomycin-resistant enterococcus, sensitive to linezolid. JAXSON was performed and negative. She will receive 2 weeks of IV linezolid following removal of the IV line. This can be done through the mid line in place if needed but could also be done orally. Status: Acute Qualifiers: Sepsis type: sepsis due to unspecified organism Sepsis acute organ dysfunction status: with acute organ dysfunction Severe sepsis acute organ dysfunction type: acute respiratory failure Acute respiratory failure type: unspecified Severe sepsis shock status: with septic shock Qualified Code(s): A41.9 - Sepsis, unspecified organism; R65.21 - Severe sepsis with septic shock; J96.00 - Acute respiratory failure, unspecified whether with hypoxia or hypercapnia (2) Sepsis associated hypotension: Resolved Status: Acute (3) Critical lower limb ischemia: Appreciate cardiology consult. Angiogram was performed May 13 and no significant flow-limiting obstruction was noted. Status: Acute (4) Acute metabolic encephalopathy: Currently back at baseline. Does have some vascular dementia at baseline according to old records. Status: Acute (5) Acute kidney injury: Acute kidney injury has resolved. Hold renal toxic medications Appreciate nephrology consultation Continue Patino Status: Acute (6) Cellulitis: Continue Zosyn, linezolid PICC line discontinued, midline in place Status: Acute Qualifiers: Laterality: left Site of cellulitis: extremity Site of cellulitis of extremity: lower extremity Qualified Code(s): L03.116 - Cellulitis of left lower limb (7) Peripheral vascular disease: Angiogram planned today Status: Chronic (8) Bilateral leg ulcer: Appreciate surgical debridement Status: Chronic Qualifiers: Non-pressure ulcer stage: unspecified non-pressure ulcer stage Qualified Code(s): L97.919 - Non-pressure chronic ulcer of unspecified part of right lower leg with unspecified severity; L97.929 - Non-pressure chronic ulcer of unspecified part of left lower leg with unspecified severity (9) Acute on chronic anemia: Hemoglobin continues to decrease. Transfuse 1 unit packed red blood cells May 12 Stool was checked and Hemoccult positive Discontinue subcutaneous heparin At this point not good candidate for EGD and colonoscopy so we will place on Protonix Status: Acute (10) Chronic kidney disease, stage 3: Status: Chronic (11) Hypertension: Holding secondary to sepsis and hypotension Status: Chronic Qualifiers: Hypertension type: essential hypertension Qualified Code(s): I10 - Essential (primary) hypertension (12) COPD (chronic obstructive pulmonary disease): Currently without exacerbation Status: Chronic Qualifiers: COPD type: emphysema Emphysema type: unspecified Qualified Code(s): J43.9 - Emphysema, unspecified (13) Vascular dementia: Status: Chronic Qualifiers: Dementia behavioral disturbance: with behavioral disturbance Qualified Code(s): F01.51 - Vascular dementia with behavioral disturbance (14) Type 2 diabetes mellitus: Discontinue sliding scale insulin as she has become hypoglycemic at times. Currently on D5 at a low rate. Status: Chronic Qualifiers: Diabetes mellitus complication status: with other specified complication Diabetes mellitus long term care social worker insulin use: without penitentiary use Qualified Code(s): E11.69 - Type 2 diabetes mellitus with other specified complication (15) Hypothyroidism: Continue home meds Status: Chronic Qualifiers: Hypothyroidism type: unspecified Qualified Code(s): E03.9 - Hypothyroidism, unspecified Additional A&P Information Atrial fibrillation. Heart rate has drifted up. Will increase metoprolol back to 50 mg twice daily Hypokalemia, resolved -GERD; on PPI GERD Morbid obesity Hyperlipidemia, on statin Chronic pain on narcotics Full code Disposition nursing facility [facility] DVT prophylaxis no anticoagulation secondary to anemia requiring transfusion, heme positive stool. SCDs contraindicated with peripheral vascular disease. Possible discharge tomorrow if heart rate is under control. COVID testing today as required by nursing facility. Attestations Medical Necessity Statement*: Needs continued hospitalization for IV antibiotics related to cellulitis. Coding Level of Care Code Acute Transit Planning Manager for g Fwd Diagnoses Sepsis A41.9; R65.21; J96.00 Sepsis type: sepsis due to unspecified organism Sepsis acute organ dysfunction status: with acute organ dysfunction Severe sepsis acute organ dysfunction type: acute respiratory failure Acute respiratory failure type: unspecified Severe sepsis shock status: with septic shock Sepsis associated hypotension A41.9; I95.9 Critical lower limb ischemia I99.8 Acute metabolic encephalopathy G93.41 Acute kidney injury N17.9 Cellulitis L03.116 Laterality: left Site of cellulitis: extremity Site of cellulitis of extremity: lower extremity Peripheral vascular disease I73.9 Bilateral leg ulcer L97.919; L97.929 Non-pressure ulcer stage: unspecified non-pressure ulcer stage Acute on chronic anemia D64.9 Chronic kidney disease, stage 3 N18.3 Hypertension I10 Hypertension type: essential hypertension COPD (chronic obstructive pulmonary disease) J43.9 COPD type: emphysema Emphysema type: unspecified Vascular dementia F01.51 Dementia behavioral disturbance: with behavioral disturbance Type 2 diabetes mellitus E11.69 Diabetes mellitus complication status: with other specified complication Diabetes mellitus long term care social worker insulin use: without long term care social worker use Hypothyroidism E03.9 Hypothyroidism type: unspecified
--- NOTE | 2020-05-14 12:02 | PC.NURSE ---
Patient spit out 4 pills onto her lunch tray. She stated she couldn't swallow them.
[2020-05-14] MEDS: linezolid 600 mg Tablet PO (16:00)
[2020-05-14 16:28] LABS: Glucose Point of Care 101 mg/dL (70-110)
[2020-05-14] MEDS: metoprolol tartrate 50 mg Tablet PO (17:51)
[2020-05-14] MEDS: nystatin powder 15 gm Btl 1 APPLIC TOPICAL (18:00)
--- NOTE | 2020-05-14 18:00 | PC.NURSE ---
Patient refusing to take oral medicines at this time. Offered to mix meds with pudding or applesauce to help with swallowing. Since patuient refused pills. Crushed metoprolol and protonix and stirred them into juice. Patient drank half of this juice.
--- NOTE | 2020-05-14 19:54 | PM.PN ---
Subjective Subjective: Interval history: Appear to be sleepy and little confused Medications: Reviewed: Yes Medication Review Details: Active Medications Generic Name Dose Route Start Last Admin Trade Name Freq PRN Reason Stop Dose Admin Acetaminophen 650 mg 05/08/20 12:30 05/09/20 15:27 Tylenol PO 650 mg Q6H PRN Administration MILD PAIN Acetaminophen 650 mg 05/08/20 13:26 Tylenol PO QID PRN Pain Albuterol Sulfate 2.5 mg 05/10/20 06:40 Albuterol INHALATION ONCE PRN WHEEZING Albuterol/Ipratrop ium 3 ml 05/08/20 15:00 Duoneb INHALATION Q6H.RESPIRATORY P RN SHORTNESS OF NIECY TH Atorvastatin Calci um 20 mg 05/09/20 09:00 05/09/20 08:58 Lipitor PO 20 mg DAILY SWATI Administration Calcium Carbonate 500 mg 05/09/20 09:00 05/09/20 08:58 Tums PO 500 mg DAILY SWATI Administration Collagenase 1 applic 05/09/20 09:00 05/09/20 14:52 Santyl TOPICAL Not Given DAILY SWATI Dextrose 25 ml 05/08/20 15:47 D50w IVP ONCE PRN hypoglycemia prot ocol Protocol Dextrose 50 ml 05/08/20 15:47 D50w IVP PRN PRN hypoglycemia prot ocol Protocol Fentanyl 50 mcg 05/10/20 06:40 Sublimaze IVP Q10M PRN Preop Pain Fluticasone Propio jovan 2 spray 05/09/20 09:00 05/09/20 08:59 Flonase INTRANASAL 2 spray DAILY SWATI Administration Glucagon 1 mg 05/08/20 15:47 Glucagen IM ONCE PRN Adult Acute Hypog lycemia Prot. Protocol Heparin Sodium (Be ef Lung) 5,000 unit 05/08/20 13:00 05/10/20 00:14 Heparin SUBCUT Not Given Q12H SWATI Hydroxyzine Pamoat e 50 mg 05/08/20 13:51 05/09/20 02:31 Vistaril PO 50 mg QID PRN Administration Anxiety Norepinephrine Bit artrate 4 mg 254 mls @ 0 mls/h r 05/08/20 12:45 05/10/20 07:29 / Dextrose IV 4 mcg/min .Q0M SWATI 15.2 mls/hr Titration Protocol Per Protocol Piperacillin Sod/T azobactam 50 mls @ 12.5 mls /hr 05/08/20 21:30 05/10/20 07:28 Sod 3.375 gm/ So dium Chloride IV Infused Q12H SWATI Infusion Protocol Linezolid 600 mg in 300 mls @ 300 mls/hr 05/08/20 15:00 05/10/20 07:28 Zyvox Premix IV Infused Q12H SWATI Infusion Protocol Dextrose 500 mls @ 100 mls /hr 05/08/20 15:47 D5w IV ONCE PRN Adult Acute Hypog lycemia Prot Protocol Lactated Ringer's 1,000 mls @ 75 ml s/hr 05/09/20 10:15 05/09/20 23:02 Lactated Ringers IV 75 mls/hr .[id number] SWATI Administration Sodium Chloride 1,000 mls @ 30 ml s/hr 05/10/20 06:45 05/10/20 07:00 Sodium Chloride 0.9% IV 05/11/20 06:44 30 mls/hr .Q24H SWATI Administration Insulin Aspart 0 unit 05/08/20 21:00 05/09/20 17:19 Novolog SUBCUT 4 unit BEDTIME SWATI Administration Protocol Insulin Aspart 0 unit 05/08/20 18:00 05/09/20 17:22 Novolog SUBCUT 4 unit TIDWM SWATI Administration Protocol Ipratropium Bromid e 0.5 mg 05/10/20 06:40 Atrovent Neb INHALATION ONCE PRN WHEEZING Lactulose 20 gm 05/08/20 14:15 Constulose PO DAILY PRN Constipation Levothyroxine Sodi um 125 mcg 05/09/20 09:00 05/09/20 09:00 Synthroid PO 125 mcg DAILY SWATI Administration Lidocaine HCl 1 applic 05/08/20 13:26 Lidocaine 2% Jel ly TOPICAL DAILY PRN TOPICAL Pain Lidocaine HCl 15 ml 05/08/20 13:26 Lidocaine 2% Vis cous MUCOUS MEM QID PRN MOUTH Pain Metoprolol Tartrat e 75 mg 05/08/20 18:00 05/09/20 17:13 Lopressor PO Not Given BID SWATI Morphine Sulfate 2 mg 05/08/20 12:30 05/09/20 02:17 Morphine IVP 2 mg Q4H PRN Administration SEVERE PAIN Naloxone HCl 0.1 mg 05/08/20 12:30 Narcan IVP Q2M PRN RESPIRATORY RATE < 8/MIN Non-Formulary Medi cation 1 each 05/09/20 09:00 Amino Acids-Prot ein Hydrolys [Pro- Stat Awc] PO DAILY SWATI Non-Formulary Medi cation 1 inh 05/09/20 09:00 Fluticasone Furo ate-Vilanterol [Br eo Ellipta] INHALATION DAILY SWATI Nystatin 1 applic 05/08/20 18:00 05/09/20 17:24 Nystatin Powder TOPICAL 1 applic BID SWATI Administration Olanzapine 5 mg 05/09/20 21:00 05/09/20 20:52 Zyprexa Zydis PO 5 mg BEDTIME SWATI Administration Ondansetron HCl 4 mg 05/08/20 12:30 Zofran IVP Q6H PRN NAUSEA AND VOMITI NG Ondansetron HCl 4 mg 05/10/20 06:40 Zofran IVP Q5M PRN NAUSEA AND VOMITI NG Oxycodone/Acetamin ophen 1 tab 05/08/20 13:26 Percocet 10-325 Mg PO Q4H PRN Pain Pantoprazole Sodiu m 40 mg 05/08/20 13:00 05/09/20 09:00 Protonix IVP 40 mg DAILY SWATI Administration Silver Sulfadiazin e 1 applic 05/09/20 11:00 05/09/20 17:25 Silvadene TOPICAL 1 applic BID SWATI Administration Tramadol HCl 50 mg 05/08/20 13:26 Ultram PO Q8H PRN Pain Venlafaxine HCl 150 mg 05/09/20 09:00 Effexor Xr PO DAILY SWATI clarithromycin Allergy (Unknown, Verified 04/16/20 14:33) Unknown hydrocodone Allergy (Unknown, Verified 04/16/20 14:33) Unknown metformin Allergy (Unknown, Verified 04/16/20 14:33) Unknown sitagliptin [From Januvia] Allergy (Unknown, Verified 04/16/20 14:33) Unknown tetanus and diphtheria toxoids Allergy (Unknown, Verified 04/16/20 14:33) Unknown triamcinolone Allergy (Unknown, Verified 04/16/20 14:33) Unknown Vitals/I&O/Wt Last Vital Signs Temp 99.0 F 05/14/20 14:44 Pulse 104 H 05/14/20 18:00 Resp 28 H 05/14/20 15:24 BP 140/62 05/14/20 14:44 Pulse Ox 97 05/14/20 14:44 05/14/20 05/14/20 05/14/20 06:59 14:59 22:59 Intake Total 50 / 1931.667 50 / 50 60 / 110 Output Total 350 / 1150 200 / 200 Balance -300 / 781.667 50 / 50 -140 / -90 Weight last 48 hrs Weight 257 lb 1.6 oz Weight 255 lb 3.2 oz Physical Exam Narrative: EXAM NARRATIVE: GENERAL: Patient is oriented and awake NECK: No jugular vein distension. HEENT: No cyanosis. No icterus. No pallor. HEART: Regular S1 and S2. No murmur, rub or gallop. LUNGS: Clear to auscultate bilaterally. ABDOMEN: Soft, nontender and nondistended. Positive bowel sounds. No guarding, rebound or tenderness. CENTRAL NERVOUS SYSTEM: Grossly nonfocal. EXTREMITIES: Left leg wrapped with nonhealing foot ulcer nonpalpable pulses but temperature of foot is normal with ruborous appearance Urinary Catheter Management^: Patino: Cath Placed During This Visit: yes Reason for Continuing Indwelling Catheter: Accurate Measurement of Urinary Output in Critically Ill Patients Urinary Catheter Date of Insertion: 05/08/20 Urinary Catheter Time of Insertion: 13:00 Data : 05/14/20 05:57 05/14/20 03:12 Micro: Microbiology 05/11/20 08:30 Urine Culture - Preliminary Urine,Clean Catch Yeast 05/11/20 13:50 Catheter Tip Culture - Final Picc Line 05/08/20 08:50 Blood Culture - Final Blood Enterococcus faecium vre 05/08/20 08:42 Blood Culture - Final Blood Enterococcus faecium vre A&P Assessment and plan (1) Acute kidney injury: Normalized. Status: Acute (2) Atrial fibrillation: Rate controlled continue current regimen Status: Acute (3) Sepsis associated hypotension: Improved. Status: Acute (4) Bacteremia: Continue IV antibiotics. No cardiac source of bacteremia noted. Status: Acute (5) Diabetic ulcer of ankle associated with diabetes mellitus due to underlying condition: Continue follow-up with wound care Status: Acute Attestations Medical Necessity Statement*: As per medicine Coding Level of Care Code Established Pt Acute Drawbridge Operator for Chg Fwd Patient Type Established History Expanded Problem Focused Exam Expanded Problem Focused Medical Decision Making Moderate Complexity Diagnoses Acute kidney injury N17.9 Atrial fibrillation I48.91 Sepsis associated hypotension A41.9; I95.9 Bacteremia R78.81 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
[2020-05-14 20:41] LABS: Glucose Point of Care 94 mg/dL (70-110)
[2020-05-14 21:39] LABS: Coronavirus Lab Test PTC Negative
[2020-05-15] VITALS: BP 110/75; PULSE 68; RESP 20; RESP 22; TEMP 37.3; O2SAT 97
--- NOTE | 2020-05-15 01:24 | XRR_ITS ---
PROCEDURE INFORMATION: Exam: XR Chest, 1 View Exam date and time: 05/15/2020 1:25 AM Age: 69 years old Clinical indication: Other: Resp distress; Prior surgery; Surgery type: Breast TECHNIQUE: Imaging protocol: XR of the chest Views: 1 view. COMPARISON: CR XR chest 1V portable [id number] 05/08/2020 8:34 AM FINDINGS: Lungs: There is a background of chronic emphysema. There are mildly prominent bronchovascular markings present bilaterally. Pleural space: Unremarkable. No pleural effusion. No pneumothorax. Heart/Mediastinum: Cardiac silhouette is prominent. Bones/joints: Unremarkable. XR/XR chest 1V portable [id number] IMPRESSION: 1. Prominent cardiac silhouette and mild prominence of the pulmonary vasculature , findings could represent CHF. 2. Background of emphysematous changes.
[2020-05-15 01:30] LABS: Glucose Point of Care 84 mg/dL (70-110)
[2020-05-15] MEDS: dextrose 50% syringe 50 mL 25 ML IVP (01:53)
[2020-05-15] MEDS: haloperidol inj 5 mg/mL INJ 1 mL IVP (01:54)
[2020-05-15 02:23] LABS: ABG PCO2 27.5 mmHg (35-45); ABG PH Result 7.43 (7.35-7.45); Arterial Blood Gas Hematocrit 27.6 % (37-47); Blood Gas Operator Identificat HARKR; Blood Gas Sample Site Brachial, left; Blood Gas Sample Type Arterial; HCO3 ABG 18.4 mmol/L (22-26); Oxygen Device ROOM AIR; PO2 ABG 89.5 mmHg (80.0-100.0)
[2020-05-15] MEDS: dextrose 10% 250 ML 30 ML IV (02:47)
[2020-05-15] MEDS: piperacillin-tazobactam 3.375 GM in sodium chloride 0.9% (plus) 50 ML IV ×2 (05:03→09:53)
[2020-05-15 05:18] LABS: Basophils % 0.2 %; Eosinophils # 0.4 10^3/uL (0.0-0.8); Eosinophils % 3.3 %; Hematocrit 35.1 % (37.0-47.0); Hemoglobin 11.6 g/dL (11.5-15.3); Lymphocytes % 18.5 %; Mean Corpuscular Hemoglobin 29.2 pg (28.0-34.0); Mean Corpuscular Volume 88.4 fL (81-99); Monocytes # 0.6 10^3/uL (0.2-0.9); Monocytes % 5.4 %; Neutrophils # 7.74 10^3/uL (1.8-7.7); Neutrophils % 72.1 %; Nucleated Red Blood Cells % 0 %; Platelet Count 247 10^3/cmm (130-400); Red Blood Count 3.97 10^6/uL (4.1-5.3); Red Cell Distribution Width 17.5 % (12.1-15.1); White Blood Count 10.7 10^3/uL (4.0-10.0)
[2020-05-15 05:23] LABS: Anion Gap 11.5 (5-19); Blood Urea Nitrogen 11 mg/dL (8-23); Calcium 7.8 mg/dL (8.5-10.5); Carbon Dioxide 20 mmol/L (22-29); Chloride 108 mmol/L (98-107); Glucose 81 mg/dL (65-115); Osmolality Calculated 277 mOsm/kg (285-295); Potassium 3.5 mmol/L (3.5-5.1); Sodium 136 mmol/L (136-145)
--- NOTE | 2020-05-15 05:47 | PC.NURSE ---
Received call from 1:1 requesting assistance. 1:1 attempted to stop patient from pulling out PICC line. Patient was able to remove the PICC line which was found intact. Cover site with 2x2 and coban. No bleeding observed. Noted patient to have increased generalized swelling (anasarca) to bilateral arm and from hips to included bilateral lower extremities. Also has water blisters developing in suprapubic area and on upper legs. Patient with audible inspiratory/expiratory wheezing heard. Accessed new 20g IV to mid upper chest. Dr Mittal notified and received order to stop all fluids at this time. 1:1 remains at bedside.
[2020-05-15 07:23] VITALS: BP 135/69; PULSE 109; RESP 17; O2SAT 97
[2020-05-15 07:47] LABS: Glucose Point of Care 85 mg/dL (70-110)
[2020-05-15] MEDS: potassium chloride ER 10 mEq Tablet 40 MEQ PO (08:32)
[2020-05-15] MEDS: atorvastatin 40 mg Tablet 20 MG PO (08:33)
[2020-05-15] MEDS: levothyroxine 125 mcg Tablet PO (08:33)
[2020-05-15] MEDS: calcium carbonate 500 mg Chew Tablet PO (08:33)
[2020-05-15] MEDS: venlafaxine ER (24HR) 150 mg Capsule PO (08:33)
[2020-05-15 08:34] VITALS: RESP 18; O2SAT 95
[2020-05-15] MEDS: oxyCODONE-APAP 5-325 mg Tablet 1 TAB PO (08:34)
[2020-05-15] MEDS: pantoprazole DR 40 mg Tablet PO (08:35)
[2020-05-15] MEDS: metoprolol tartrate 50 mg Tablet PO (08:35)
--- NOTE | 2020-05-15 09:20 | PC.SOCIAL ---
IMM Updated Page 2 of IMM updated and given to patient. She is confused at this time, so SS called and left voicemail for son Hugo providing him with this information as well.
[2020-05-15 09:32] VITALS: PULSE 124; RESP 20; O2SAT 92
[2020-05-15 11:29] LABS: Glucose Point of Care 102 mg/dL (70-110)
--- NOTE | 2020-05-15 11:53 | PC.NURSE ---
marisela mathew rn, states he changed the lle wound drsg early this morning.
--- NOTE | 2020-05-15 12:27 | PM.DCS ---
Discharge Providers Date of Admission: 05/08/20 10:27 Date of Discharge: May 15, 2020 Attending Provider at Admission: Chioma Mccauley DO Attending Provider at Discharge: Montez Pierce MD Diagnoses at Discharge Discharge Diagnosis (1) Acute kidney injury: Status: Acute Problem details: Resolved (2) Atrial fibrillation: Status: Acute Problem details: Controlled (3) Sepsis associated hypotension: Status: Acute Problem details: Secondary to VRE. We will keep on linezolid 4 weeks. JAXSON negative. 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 She was placed on broad-spectrum antibiotics. Nephrology as well as cardiology consultation was obtained. With the above treatment as well as close fluid management renal function recovered nicely. Cellulitis improved. Cardiology performed an angiogram as well as a JAXSON while in the hospital. Angiogram did not demonstrate flow-limiting stenosis. JAXSON was performed as patient's blood cultures grew vancomycin-resistant enterococcus. JAXSON did not demonstrate a vegetation. When she was noted to be bacteremic paper her PICC line was removed, and a midline placed. By the end of her hospital stay creatinine was back to baseline. Atrial fibrillation that the patient developed was under control, cellulitis was improving. It was thought she could be discharged to the nursing facility on 4 weeks of linezolid for her positive blood culture with VRE. She will need continued wound care at the nursing facility. Physical Exam Narrative: EXAM NARRATIVE: General exam no apparent distress Cardiovascular irregular, irregular with controlled rate Lungs clear Abdomen is soft with positive bowel sounds Extremity no cyanosis or clubbing. Multiple ulcerations left lower extremity Urinary Catheter Management^: Patino: Cath Placed During This Visit: yes Reason for Continuing Indwelling Catheter: Accurate Measurement of Urinary Output in Critically Ill Patients Urinary Catheter Date of Insertion: 05/08/20 Urinary Catheter Time of Insertion: 13:00 Discharge Data Data Completed and Pending: Completed Studies During Hospitalization Category Date Time Status CT head wo con* 7 [id number] Urgent Cat Scan 05/08/20 08:30 Completed XR chest 1V susan ble [id number] Stat Exams 08/21/20 01:24 Completed XR chest 1V susan ble [id number] Urgent Exams 05/08/20 08:30 [place] [id number] Stat Ultrasound 05/08/20 12:04 Completed CV echo complete* [id number] Routine Ultrasound 05/11/20 07:59 Completed JAXSON [CV echo nolan sesophageal [id number]] Routine Ultrasound 05/12/20 07:56 Completed Pending at discharge Category Date Time Status SALESPERSON FURNITURE request for service Routin e Exams 05/13/20 11:30 Taken ES surgery / GI i mages Routine Exams 05/10/20 08:09 Taken Leukocyte Reduced RBC Routine Lab 05/12/20 07:43 Results Type and Screen R outine Lab 05/12/20 07:43 Results Urine Culture Rou shivam Lab 05/11/20 08:30 Results Labs from last 24 hours 05/15/20 05/15/20 05/15/20 11:27 07:42 04:13 WBC RBC Hgb Hct MCV MCH MCHC RDW Plt Count MPV Neut % (Auto) Lymph % (Auto) Peach % (Auto) Eos % (Auto) Baso % (Auto) Neut # (Auto) Lymph # (Auto) Peach # (Auto) Eos # (Auto) Baso # (Auto) Nucleated RBC % (a uto) Nucleated RBCs # Specimen Type Sample Site ABG pH ABG pCO2 ABG pO2 ABG HCO3 ABG Base Excess Ash Test Hematocrit O2 Delivery Device FiO2 Award Machine Operator ID Sodium 136 Potassium 3.5 Chloride 108 H Carbon Dioxide 20 L Anion Gap 11.5 BUN 11 Creatinine 1.0 H GFR Calculation Not Reportable Glucose 81 POC Glucose 102 85 Calculated Osmolal ity 277 L Calcium 7.8 L Nasal/Oral COVID-1 9 PCR 05/15/20 05/15/20 05/15/20 04:13 02:12 01:25 WBC 10.7 H RBC 3.97 L Hgb 11.6 Hct 35.1 L MCV 88.4 MCH 29.2 MCHC 33.0 RDW 17.5 H Plt Count 247 MPV 9.0 Neut % (Auto) 72.1 Lymph % (Auto) 18.5 Peach % (Auto) 5.4 Eos % (Auto) 3.3 Baso % (Auto) 0.2 Neut # (Auto) 7.74 H Lymph # (Auto) 2.0 Peach # (Auto) 0.6 Eos # (Auto) 0.4 Baso # (Auto) 0.0 Nucleated RBC % (a uto) 0 Nucleated RBCs # 0.0 Specimen Type Arterial Sample Site Brachial, left ABG pH 7.43 ABG pCO2 27.5 L ABG pO2 89.5 ABG HCO3 18.4 L ABG Base Excess -5.0 L Ash Test N/a Hematocrit 27.6 L O2 Delivery Device Room air FiO2 21.0 Award Machine Operator ID Harkr Sodium Potassium Chloride Carbon Dioxide Anion Gap BUN Creatinine GFR Calculation Glucose POC Glucose 84 Calculated Osmolal ity Calcium Nasal/Oral COVID-1 9 PCR 05/14/20 05/14/20 05/14/20 20:35 16:20 11:30 WBC RBC Hgb Hct MCV MCH MCHC RDW Plt Count MPV Neut % (Auto) Lymph % (Auto) Peach % (Auto) Eos % (Auto) Baso % (Auto) Neut # (Auto) Lymph # (Auto) Peach # (Auto) Eos # (Auto) Baso # (Auto) Nucleated RBC % (a uto) Nucleated RBCs # Specimen Type Sample Site ABG pH ABG pCO2 ABG pO2 ABG HCO3 ABG Base Excess Ash Test Hematocrit O2 Delivery Device FiO2 Award Machine Operator ID Sodium Potassium Chloride Carbon Dioxide Anion Gap BUN Creatinine GFR Calculation Glucose POC Glucose 94 101 Calculated Osmolal ity Calcium Nasal/Oral COVID-1 9 PCR Negative Vitals: Last Vital Signs Temp 99.1 F 05/15/20 00:00 Pulse 124 H 05/15/20 09:32 Resp 20 H 05/15/20 09:32 BP 135/69 05/15/20 07:23 Pulse Ox 92 05/15/20 09:32 Discharge Plan Discharge Patient Disposition: Xfer [facility] Condition: Stable Prescriptions: New oxycodone-acetaminophen 5-325 mg Tablet 1 tab PO Q6H PRN (Reason: Moderate Pain) Qty: 30 RF: 0 metoprolol tartrate 50 mg Tablet 50 mg PO BID Qty: 60 RF: 0 linezolid 600 mg Tablet 600 mg PO Q12H 28 Days Qty: 56 RF: 0 Continued multivitamin Tablet 1 tab PO DAILY RF: 0 furosemide [Lasix] 40 mg Tablet 40 mg PO DAILY RF: 0 acetaminophen 325 mg Tablet 650 mg PO QID PRN (Reason: Pain) RF: 0 polyethylene glycol 3350 [Miralax] 17 gram Powder In Packet 17 g PO DAILY PRN (Reason: Constipation) RF: 0 pantoprazole 40 mg Tablet,Delayed Release (Dr/Ec) 40 mg PO DAILY RF: 0 simvastatin 20 mg Tablet 20 mg PO DAILY RF: 0 levothyroxine 125 mcg Tablet 125 mcg PO DAILY RF: 0 mirtazapine 45 mg Tablet 45 mg PO DAILY RF: 0 nystatin 100,000 unit/gram Powder 1 applic TOPICAL BID RF: 0 aripiprazole 5 mg Tablet 5 mg PO BID RF: 0 senna 8.6 mg Capsule 8.6 mg PO BID RF: 0 venlafaxine 150 mg Tablet Extended Release 24hr 150 mg PO DAILY RF: 0 Breo Ellipta 200-25 mcg/dose Blister With Device 1 inh INHALATION DAILY RF: 0 Santyl 250 unit/gram Ointment 1 applic TOPICAL DAILY RF: 0 Hemorrhoidal Cream 0.25-1 % Cream 1 applic HI BID PRN (Reason: HEMORRHOIDS) RF: 0 Discontinued Pro-Stat AWC 17-100 gram-kcal/30 mL Liquid 1 ea PO DAILY RF: 0 metoprolol tartrate 50 mg Tablet 75 mg PO BID 30 Days Qty: 90 RF: 0 olanzapine 5 mg Tablet,Disintegrating 5 mg PO DAILY 30 Days Qty: 30 RF: 0 melatonin 3 mg Tablet 5 mg PO DAILY RF: 0 amlodipine 5 mg Tablet 5 mg PO DAILY RF: 0 Hold Instructions: Resume on 02/03/20. After checking blood pressure magnesium hydroxide [Milk of Magnesia] 400 mg/5 mL Suspension 30 ml PO DAILY PRN (Reason: Constipation) RF: 0 calcium carbonate 500 mg calcium (1,250 mg) Tablet 500 mg PO DAILY RF: 0 oxycodone-acetaminophen 10-325 mg Tablet 1 tab PO Q4H PRN (Reason: Pain) RF: 0 oxycodone-acetaminophen 10-325 mg Tablet 1 tab PO DAILY RF: 0 trazodone 100 mg Tablet 200 mg PO BEDTIME RF: 0 bisacodyl 10 mg Suppository 10 mg HI DAILY PRN (Reason: Constipation) RF: 0 lisinopril 10 mg Tablet 10 mg PO DAILY RF: 0 Hold Instructions: Resume on 02/03/20. After checking blood pressure fluticasone propionate 50 mcg/actuation Lambert,Suspension 2 spray INTRANASAL DAILY RF: 0 Toviaz 4 mg Tablet Extended Release 24 Hr 4 mg PO DAILY RF: 0 Tradjenta 5 mg Tablet 5 mg PO DAILY RF: 0 Farxiga 5 mg Tablet 5 mg PO DAILY RF: 0 Zofran 4 mg Tablet 4 mg PO Q6H PRN (Reason: Nausea) RF: 0 lidocaine HCl 2 % Jelly 1 applic TOPICAL DAILY PRN (Reason: Pain) RF: 0 hydroxyzine HCl 50 mg Tablet 50 mg PO QID PRN (Reason: Anxiety) RF: 0 tramadol 50 mg Tablet 50 mg PO Q8H PRN (Reason: Pain) RF: 0 Enema 19-7 gram/118 mL Enema 118 ml HI DAILY PRN (Reason: Constipation) RF: 0 Lidocaine Viscous 2 % Solution 1 applic MUCOUS MEMBRANE QID PRN (Reason: Pain) RF: 0 cyclobenzaprine 5 mg Tablet 5 mg PO Q8H PRN (Reason: Pain) RF: 0 lactulose 10 gram/15 mL Solution 30 ml PO DAILY PRN (Reason: Constipation) RF: 0 Biofreeze (menthol) 4 % Gel 1 applic TOPICAL BID PRN (Reason: Pain) RF: 0 Referrals: [facility] [Outside] Discharge Diet: Diabetic Discharge Activity: Increase activity as tolerated Activity Restrictions/Additional Instructions: Soft mechanical diet CBC, BMP in 3 days Follow-up with primary care provider at [facility] 3 to 5 days Wound care consult with facilities electronic warfare specialist Discharge Attestations Time Spent in Discharge Care*: greater than 30 min Quality Metrics Clinical Quality Measures During this hospital stay, did patient experience: None Coding Level of Care Code Acute Director Of Content Marketing for [facility] Fwd Diagnoses Acute kidney injury N17.9 Atrial fibrillation I48.91 Sepsis associated hypotension A41.9; I95.9 Bacteremia R78.81 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
[2020-05-15 13:07] VITALS: PULSE 124; RESP 20; O2SAT 92
--- NOTE | 2020-05-15 13:22 | PC.CHAP ---
Pastoral Care Encounter/Spiritual Assessment Type of Contact [] Declined clinical exercise specialist visit [] Patient/Family/Request visit [] Outpatient visit [] Follow-up visit [] Physician referral [] Code/Alert [x] Routine visit [] Staff referral [] Actively dying [] Patient sleeping [] Family support [] [] Out of room [] Palliative care [] [x] Receiving care in room [] Pre-surgical visit [] Trauma [] Long length of stay [] ICU visit [] Other: Relational/Emotional Strength [] Patient feels connected with others/family/visitors/staff [] Distress [] Loneliness/isolation [] Abandonment Spirituality of Patient [] Person of Kaila [] Attends Mosque of their [place] [] Believes in Prayer [] Reads Bible or Worship materials [] There are Spiritual issues to be addressed Manager Mechanical Interventions [] Prayer [] Active listening [] Non-anxious presence [] Spiritual/emotional support [] Crisis/trauma care [] Spiritual counseling [] Bereavement support [] Provided bereavement packet [] Provided Bible/devotional materials [] Provided toy/stuffed animal, coloring book to patient or family member [] Provided Communion [] Anointing/[place] [] Salvation [] Completed spiritual assessment [] Other: Impact on Illness or Injury [] Angry [] Fearful [] Anxious [] Often cries [] Exhaustion [] Unable to work [] Unable to attend adventist [] Unable to walk/stand [] Unable to read [] Unable to drive [] Unable to eat/drink [] Unable to sleep [] Unable to be with family [] Patient intubated [] Other: Summary Patient was receiving care from the nursing staff at the time of the clinical exercise specialist visit. Manager Mechanical referred the patient for a follow up visit from the [facility] clinical exercise specialist. Patient visit attempted by Manager Mechanical Bon Johnson. Time spent with patient 3 minutes
[2020-05-15 13:28] VITALS: PULSE 124; RESP 20; O2SAT 92
== END 2020-05-15 15:19 | disposition skilled nursing facility (03) | DRG 853 ==
LOC: ER 10:10 → ICU 10:50 → CSU 05-12 19:25
PROVIDERS: Emergency Medicine; Family Medicine; Hospitalist; Internal Medicine; Internal Medicine Cardiovascular Disease; Internal Medicine Nephrology; Surgery; Admitting Provider Family Medicine; Visit Provider Internal Medicine
DX: A41.9 Sepsis, unspecified organism (principal); R65.21 Severe sepsis with septic shock; N17.0 Acute kidney failure with tubular necrosis; G93.41 Metabolic encephalopathy; J96.00 Acute respiratory failure, unspecified whether with hypoxia or hypercapnia; L97.324 Non-pressure chronic ulcer of left ankle with necrosis of bone; L97.928 Non-pressure chronic ulcer of unspecified part of left lower leg with other specified severity; F01.51 Vascular dementia, unspecified severity, with behavioral disturbance; L03.116 Cellulitis of left lower limb; Z68.42 Body mass index [BMI] 45.0-49.9, adult; L97.919 Non-pressure chronic ulcer of unspecified part of right lower leg with unspecified severity; E11.22 Type 2 diabetes mellitus with diabetic chronic kidney disease; I12.9 Hypertensive chronic kidney disease with stage 1 through stage 4 chronic kidney disease, or unspecified chronic kidney disease; N18.3 Chronic kidney disease, stage 3 (moderate); E11.21 Type 2 diabetes mellitus with diabetic nephropathy; E11.51 Type 2 diabetes mellitus with diabetic peripheral angiopathy without gangrene; E11.622 Type 2 diabetes mellitus with other skin ulcer; J43.9 Emphysema, unspecified; E03.9 Hypothyroidism, unspecified; G47.30 Sleep apnea, unspecified; Z96.653 Presence of artificial knee joint, bilateral; I95.9 Hypotension, unspecified; D63.1 Anemia in chronic kidney disease; Z87.440 Personal history of urinary (tract) infections; E66.01 Morbid (severe) obesity due to excess calories; K21.9 Gastro-esophageal reflux disease without esophagitis; G89.29 Other chronic pain; E78.5 Hyperlipidemia, unspecified; I89.0 Lymphedema, not elsewhere classified; E87.6 Hypokalemia; K44.9 Diaphragmatic hernia without obstruction or gangrene; B95.2 Enterococcus as the cause of diseases classified elsewhere
CPT/HCPCS: 12345; 36415; 36416; 36430; 36569; 36600; 51702; 70450; 71045; 75625; 75710; 80048; 80053; 81001; 81003; 82274; 82550; 82570; 82607; 82728; 82746; 82803; 82805; 82962; 83540; 83550; 83605; 83735; 83880; 84100; 84300; 84443; 84550; 85025; 85610; 85999; 86850; 86900; 86920; 87040; 87070; 87075; 87077; 87086; 87106; 87186; 87205; 87635; 92610; 93005; 93010; 93306; 93312; 93320; 93325; 93926; 94640; 94664; 96372; 96375; 97110; 97161; 97165; 97530; 97535; 99283; C1769; C1887; C1894; C9113; J1630; J1644; J1815; J1940; J2020; J2250; J2270; J2370; J2543; J2704; J3010; J3370; J3475; J3480; J3490; J7030; J7040; J7050; J7611; P9016; P9047; Q3014; Q9967

== ENCOUNTER 2020-05-21 05:41 | Inpatient (IN) | payer MEDICARE, MEDICAID, SELFPAY ==
[2020-05-21] VITALS (32 sets, daily range): BP systolic 84–128; BP diastolic 50–84; PULSE 86–147; RESP 14–25; TEMP 36.5–36.7; O2SAT 90–100; BMI 44.4
--- NOTE | 2020-05-21 05:45 | CTR_ITS ---
PROCEDURE INFORMATION: Exam: CT Head Without Contrast Exam date and time: 05/21/2020 5:54 AM Age: 69 years old Clinical indication: Weakness, extremity and weakness, facial; Left; Additional info: Symptoms of acute stroke TECHNIQUE: Imaging protocol: Computed tomography of the head without contrast. Radiation optimization: All CT scans at this facility use at least one of these dose optimization techniques: automated exposure control; mA and/or kV adjustment per patient size (includes targeted exams where dose is matched to clinical indication); or iterative reconstruction. Other technique: STROKE PROTOCOL was implemented. COMPARISON: CT head wo con* [id number] 05/08/2020 9:11 AM RADIATION DOSE METRICS: Total DLP (mGy-cm): 958.3 FINDINGS: Brain: There is no acute intracranial hemorrhage or mass effect. Mild to moderate diffuse volume loss is within the range of normal for patient age. There are small vessel ischemic changes within the periventricular and subcortical white matter, but the normal umaña/white matter delineation is maintained. Encephalomalacia involves the right parietal and temporal lobes. Chronic lacunar infarcts involve the right basal ganglia. Ventricles: Normal. No ventriculomegaly. Bones/joints: Unremarkable. No acute fracture. Sinuses: Visualized sinuses are unremarkable. No fluid levels. Mastoid air cells: Visualized mastoid air cells are well aerated. Soft tissues: Unremarkable. CT/CT head wo con* [id number] IMPRESSION: No acute hemorrhage or edema. Chronic changes. ASSESSMENT: ASPECTS ([place] Stroke Program Early CT Score) is 10. Radiation Dose CTDIVOL = (mGy): DLP = 958.3 (mGy-cm)
--- NOTE | 2020-05-21 05:45 | ECG_ITS ---
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 Measurements Intervals [place] Rate: 113 P: TX: -1 QRS: 34 QRSD: 79 T: 29 QT: 333 QTc: 457 Interpretive Statements ATRIAL FIBRILLATION WITH RAPID VENTRICULAR RESPONSE WITH ABERRANT CONDUCTION OR VENTRICULAR PREMATURE COMPLEXES LOW QRS VOLTAGE [QRS DEFLECTION < 0.5/1.0 mV IN LIMB/CHEST LEADS] Compared to ECG 05/08/2020 08:47:47 Aberrant conduction of supraventricular beat(s) now present Ventricular premature complex(es) now present Low QRS voltage now present ST (T wave) deviation no longer present Electronically Signed On 05-22-2020 20:33:38 CDT by Angle Bell M.D. [id number]
--- NOTE | 2020-05-21 05:52 | ED_ITS ---
Documented by User: Donal Ramirez MD 05/21/20 05:54 HPI - Neuro Symptoms/Deficit General: Chief Complaint: Neuro Symptoms/Deficit Stated Complaint: Stroke like symptoms Time Seen by Provider: 05/21/20 05:47 Source: patient and EMS Mode of arrival: EMS Limitations: altered mental status History of Present Illness: HPI Narrative: 69-year-old female comes from a [facility]pc. Patient's at fpc was sitting at nursing station at 5:00 and then started having left-sided weakness along with facial droop and was unable to speak. Patient here is able to tell me her name but is slurring. Patient has some slight movement in her left arm. Patient does look to the left. Review of Systems General: Reports: ROS unobtainable due to mental status PFSH ED PFSH: Medical History Chronic kidney disease, stage 3 COPD (chronic obstructive pulmonary disease) Diabetic nephropathy Hypertension Hypothyroidism Leg ulcer, left PVD (peripheral vascular disease) Sleep apnea Type 2 diabetes mellitus Vascular dementia Surgical History History of bilateral knee arthroplasty S/P breast lumpectomy Family History Father Diabetes Hypertension Mother CAD (coronary artery disease) Hypertension Social History Smoking and tobacco status: never smoked Alcohol intake: never Household members: other Housing: Senior [facility] Current gender identity: Female Additional social history: -[place] [facility] [place] Vital Signs: Vital signs: Vital Signs Temperature 98.1 F 05/21/20 05:42 Pulse Rate 118 H 05/21/20 08:00 Respiratory Rate 18 05/21/20 08:00 Blood Pressure 103/67 05/21/20 08:00 Pulse Oximetry 98 05/21/20 08:00 MDM - Neuro Symptoms/Deficit Lab Data: Labs: Lab Results 05/21/20 05/21/20 05/21/20 Range/Units 05:31 05:31 05:31 WBC 22.1 H (4.0-10.0) 10^3/ uL RBC 3.38 L (4.1-5.3) 10^6/u L Hgb 9.6 L (11.5-15.3) g/dL Hct 30.8 L (37.0-47.0) % MCV 91.1 (81-99) fL MCH 28.4 (28.0-34.0) pg MCHC 31.2 (30.0-36.0) g/dL RDW 18.7 H (12.1-15.1) % Plt Count 449 H (130-400) 10^3/c mm MPV 9.0 (7.4-10.4) fL Neut % (Auto) 54.6 % Lymph % (Auto) 35.8 % [place] % (Auto) 4.8 % Eos % (Auto) 3.9 % Baso % (Auto) 0.2 % Neut # (Auto) 12.05 H (1.8-7.7) 10^3/u L Lymph # (Auto) 7.9 H (0.8-4.8) 10^3/u L [place] # (Auto) 1.1 H (0.2-0.9) 10^3/u L Eos # (Auto) 0.9 H (0.0-0.8) 10^3/u L Baso # (Auto) 0.1 (0.0-0.1) 10^3/u L Nucleated RBC % (a uto) 0 % Nucleated RBCs # 0.0 /100WBC PT 13.70 (12.1-14.9) SECO NDS INR 1.02 (0.8-1.2) APTT 34.5 (23.9-36.7) SECO NDS Sodium 142 (136-145) mmol/L Potassium 3.5 (3.5-5.1) mmol/L Chloride 110 H (98-107) mmol/L Carbon Dioxide 18 L (22-29) mmol/L Anion Gap 17.5 (5-19) BUN 6 L (8-23) mg/dL Creatinine 0.8 (0.5-0.9) mg/dL GFR Calculation Not Reportable Glucose 123 H (65-115) mg/dL Calculated Osmolal ity 291 (285-295) mOsm/k g Lactic Acid (0.5-2.2) mmol/L Calcium 8.0 L (8.5-10.5) mg/dL Total Bilirubin 0.3 (0.15-1.2) mg/dL AST 17 (0-32) U/L ALT 15 (0-33) U/L Alkaline Phosphata se 148 H (35-105) IU/L Troponin T Baselin e (0-10) ng/L Troponin T 120 [place] (0-10) ng/L Delta Troponin T (0-10) ABS# Total Protein 5.8 L (6.6-8.7) g/dL Albumin 2.6 L (3.5-5.2) g/dL Globulin 3.2 (1.3-4.6) g/dL Urine Color (Yellow) Urine Appearance (CLEAR) Urine pH (5-7) Ur Specific Gravit y (1.005-1.030) Urine Protein (Negative) Urine Glucose (UA) (Normal) Urine Ketones (Negative) Urine Blood (Negative) Urine Nitrate (Negative) Urine Bilirubin (NEGATIVE) Urine Urobilinogen (Negative) mg/dL Ur Leukocyte Ruma ase (Negative) 05/21/20 05/21/20 05/21/20 Range/Units 05:31 06:40 07:45 WBC (4.0-10.0) 10^3/ uL RBC (4.1-5.3) 10^6/u L Hgb (11.5-15.3) g/dL Hct (37.0-47.0) % MCV (81-99) fL MCH (28.0-34.0) pg MCHC (30.0-36.0) g/dL RDW (12.1-15.1) % Plt Count (130-400) 10^3/c mm MPV (7.4-10.4) fL Neut % (Auto) % Lymph % (Auto) % [place] % (Auto) % Eos % (Auto) % Baso % (Auto) % Neut # (Auto) (1.8-7.7) 10^3/u L Lymph # (Auto) (0.8-4.8) 10^3/u L [place] # (Auto) (0.2-0.9) 10^3/u L Eos # (Auto) (0.0-0.8) 10^3/u L Baso # (Auto) (0.0-0.1) 10^3/u L Nucleated RBC % (a uto) % Nucleated RBCs # /100WBC PT (12.1-14.9) SECO NDS INR (0.8-1.2) APTT (23.9-36.7) SECO NDS Sodium (136-145) mmol/L Potassium (3.5-5.1) mmol/L Chloride (98-107) mmol/L Carbon Dioxide (22-29) mmol/L Anion Gap (5-19) BUN (8-23) mg/dL Creatinine (0.5-0.9) mg/dL GFR Calculation Glucose (65-115) mg/dL Calculated Osmolal ity (285-295) mOsm/k g Lactic Acid 3.3 H (0.5-2.2) mmol/L Calcium (8.5-10.5) mg/dL Total Bilirubin (0.15-1.2) mg/dL AST (0-32) U/L ALT (0-33) U/L Alkaline Phosphata se (35-105) IU/L Troponin T Baselin e 84 H (0-10) ng/L Troponin T 120 [place] (0-10) ng/L Delta Troponin T (0-10) ABS# Total Protein (6.6-8.7) g/dL Albumin (3.5-5.2) g/dL Globulin (1.3-4.6) g/dL Urine Color Yellow (Yellow) Urine Appearance Clear (CLEAR) Urine pH 5 (5-7) Ur Specific Gravit y 1.020 (1.005-1.030) Urine Protein Neg (Negative) Urine Glucose (UA) Norm (Normal) Urine Ketones Negative (Negative) Urine Blood Neg (Negative) Urine Nitrate Negative (Negative) Urine Bilirubin Neg (NEGATIVE) Urine Urobilinogen Norm (Negative) mg/dL Ur Leukocyte Ruma ase Negative (Negative) 05/21/20 Range/Units 07:45 WBC (4.0-10.0) 10^3/ uL RBC (4.1-5.3) 10^6/u L Hgb (11.5-15.3) g/dL Hct (37.0-47.0) % MCV (81-99) fL MCH (28.0-34.0) pg MCHC (30.0-36.0) g/dL RDW (12.1-15.1) % Plt Count (130-400) 10^3/c mm MPV (7.4-10.4) fL Neut % (Auto) % Lymph % (Auto) % [place] % (Auto) % Eos % (Auto) % Baso % (Auto) % Neut # (Auto) (1.8-7.7) 10^3/u L Lymph # (Auto) (0.8-4.8) 10^3/u L [place] # (Auto) (0.2-0.9) 10^3/u L Eos # (Auto) (0.0-0.8) 10^3/u L Baso # (Auto) (0.0-0.1) 10^3/u L Nucleated RBC % (a uto) % Nucleated RBCs # /100WBC PT (12.1-14.9) SECO NDS INR (0.8-1.2) APTT (23.9-36.7) SECO NDS Sodium (136-145) mmol/L Potassium (3.5-5.1) mmol/L Chloride (98-107) mmol/L Carbon Dioxide (22-29) mmol/L Anion Gap (5-19) BUN (8-23) mg/dL Creatinine (0.5-0.9) mg/dL GFR Calculation Glucose (65-115) mg/dL Calculated Osmolal ity (285-295) mOsm/k g Lactic Acid (0.5-2.2) mmol/L Calcium (8.5-10.5) mg/dL Total Bilirubin (0.15-1.2) mg/dL AST (0-32) U/L ALT (0-33) U/L Alkaline Phosphata se (35-105) IU/L Troponin T Baselin e (0-10) ng/L Troponin T 120 [place] 111.2 H (0-10) ng/L Delta Troponin T 27.2 H* (0-10) ABS# Total Protein (6.6-8.7) g/dL Albumin (3.5-5.2) g/dL Globulin (1.3-4.6) g/dL Urine Color (Yellow) Urine Appearance (CLEAR) Urine pH (5-7) Ur Specific Gravit y (1.005-1.030) Urine Protein (Negative) Urine Glucose (UA) (Normal) Urine Ketones (Negative) Urine Blood (Negative) Urine Nitrate (Negative) Urine Bilirubin (NEGATIVE) Urine Urobilinogen (Negative) mg/dL Ur Leukocyte Ruma ase (Negative) Discharge Plan Discharge Prescriptions: No Action multivitamin Tablet 1 tab PO DAILY RF: 0 furosemide [Lasix] 40 mg Tablet 40 mg PO DAILY RF: 0 acetaminophen 325 mg Tablet 650 mg PO QID PRN (Reason: Pain) RF: 0 polyethylene glycol 3350 [Miralax] 17 gram Powder In Packet 17 g PO DAILY PRN (Reason: Constipation) RF: 0 pantoprazole 40 mg Tablet,Delayed Release (Dr/Ec) 40 mg PO DAILY RF: 0 simvastatin 20 mg Tablet 20 mg PO DAILY RF: 0 levothyroxine 125 mcg Tablet 125 mcg PO DAILY RF: 0 mirtazapine 45 mg Tablet 45 mg PO DAILY RF: 0 nystatin 100,000 unit/gram Powder 1 applic TOPICAL BID RF: 0 aripiprazole 5 mg Tablet 5 mg PO BID RF: 0 senna 8.6 mg Capsule 8.6 mg PO BID RF: 0 venlafaxine 150 mg Tablet Extended Release 24hr 150 mg PO DAILY RF: 0 Breo Ellipta 200-25 mcg/dose Blister With Device 1 inh INHALATION DAILY RF: 0 Santyl 250 unit/gram Ointment 1 applic TOPICAL DAILY RF: 0 Hemorrhoidal Cream 0.25-1 % Cream 1 applic SD BID PRN (Reason: HEMORRHOIDS) RF: 0 oxycodone-acetaminophen 5-325 mg Tablet 1 tab PO Q6H PRN (Reason: Moderate Pain) Qty: 30 RF: 0 linezolid 600 mg Tablet 600 mg PO Q12H 28 Days Qty: 56 RF: 0 metoprolol tartrate 50 mg Tablet 50 mg PO BID Qty: 60 RF: 0 Coding Level of Care Code ED Remedial Masseur for Chg Fwd Documented by User: Evelin Roche MD 05/21/20 08:38 HPI - Neuro Symptoms/Deficit General: Chief Complaint: Neuro Symptoms/Deficit Stated Complaint: Stroke like symptoms Time Seen by Provider: 05/21/20 05:47 PFSH ED PFSH: Medical History Chronic kidney disease, stage 3 COPD (chronic obstructive pulmonary disease) Diabetic nephropathy Hypertension Hypothyroidism Leg ulcer, left PVD (peripheral vascular disease) Sleep apnea Type 2 diabetes mellitus Vascular dementia Surgical History History of bilateral knee arthroplasty S/P breast lumpectomy Family History Father Diabetes Hypertension Mother CAD (coronary artery disease) Hypertension Social History Smoking and tobacco status: never smoked Alcohol intake: never Household members: other Housing: Senior Care Current gender identity: Female Additional social history: -l[place] [facility] [place] Physical Exam Const: COMMON NORMALS: no limitations and alert GENERAL APPEARANCE: cooperative, comfortable and anxious NUTRITIONAL APPEARANCE: obese HENMT: HEAD & SCALP: normal to inspection FACE & SINUS: normal facial exam Eye: GENERAL EYE: appearance normal, both eyes and all related structures and other (Deviation to the left but she is able to track) VISUAL ACUITY: Yes other (No gross visual field defects) Neck/C-Spine: COMMON NORMALS: supple, no meningeal signs and no JVD Chest: COMMONS NORMALS: normal inspection of the chest Resp: COMMON NORMALS: normal respiratory effort, No use of accessory muscles and clear to auscultation bilaterally AUSCULTATION: clear to auscultation bilaterally Cardio: COMMON NORMALS: no JVD and No murmurs present (Cardio); negative for No gallops present (Cardio) (Intermittent gallop) RATE: tachycardic RHYTHM: abnormal rhythm irregularly irregular GI: COMMON NORMALS: Normal to inspection, nondistended, normoactive bowel sounds present, Soft to palpation and non-tender INSPECTION: Yes normal to inspection AUSCULTATION: Yes normoactive bowel sounds PALPATION: Yes Soft to palpation Back/Pelvis: COMMON NORMALS: thoracic and lumbar spine normal to inspection Extremity: NARRATIVE EXTREMITY EXAM: Edema both lower extremities. The left has a wrap over a wound which is oozing serosanguineous fluid. Mild erythema surrounding. GENERAL: Yes normal exam except as noted Neuro: MAN COMA SCALE: document GCS findings [place] coma scale eye opening: Spontaneous [place] coma scale verbal response: Confused Man coma scale motor response: Obey commands Man coma scale total score: 14 COMMON NORMALS: moves all extremities SENSORIUM/ORIENTATION: Yes alert MENINGEAL SIGNS: Yes no meningeal signs OTHER: My physical exam was after the patient had Will gone to CT and been initially evaluated by Dr. Ramirez. On my exam she had verification manager strength which was equal on both sides and about a 4+ out of 5. She continues to have bilateral lower extremity weakness. She continues to have some left gaze deviation but will look at me when I talk. She was able to answer questions and became more alert and verbal. Psych: COMMON NORMALS: mental status grossly normal, cooperative and normal affect Skin: COMMON NORMALS: turgor normal GENERAL SKIN EXAM: turgor normal LESIONS: lesion noted (Wound on the left lower leg. Also small amount of skin breakdown on the perineal area) Course ED course: Neuro symptoms resolved. She appears to be back to baseline based on my assessment of prior records. She was admitted recently for VRE sepsis and is on linezolid. She was given IV fluids in the department. She was given Zofran for nausea. She was given Lovenox for both TIA and chest pain. She will be admitted to the [facility] by the hospitalist. Vital Signs: Vital signs: Vital Signs Temperature 98.1 F 05/21/20 05:42 Pulse Rate 118 H 05/21/20 08:00 Respiratory Rate 18 05/21/20 08:00 Blood Pressure 103/67 05/21/20 08:00 Pulse Oximetry 98 05/21/20 08:00 MDM - Neuro Symptoms/Deficit MDM Narrative: Medical decision making narrative: CVA, initially seemed to be a good candidate for TPA however her symptoms resolved in the ED. She is in A. fib and not on anticoagulation. I am not sure if there is a contraindication. History of prior stroke which is evident on the CT scan. Also complains of chest pain and was hypotensive. IV fluid boluses given in small aliquots to prevent fluid overload. Lactate was slightly elevated around 3. Troponin was elevated and her delta troponin was 27. Admit for further evaluation of TIA, chest pain. Recent admit for sepsis and concern for that as well. Lab Data: Labs: Lab Results 05/21/20 05/21/20 05/21/20 Range/Units 05:31 05:31 05:31 WBC 22.1 H (4.0-10.0) 10^3/ uL RBC 3.38 L (4.1-5.3) 10^6/u L Hgb 9.6 L (11.5-15.3) g/dL Hct 30.8 L (37.0-47.0) % MCV 91.1 (81-99) fL MCH 28.4 (28.0-34.0) pg MCHC 31.2 (30.0-36.0) g/dL RDW 18.7 H (12.1-15.1) % Plt Count 449 H (130-400) 10^3/c mm MPV 9.0 (7.4-10.4) fL Neut % (Auto) 54.6 % Lymph % (Auto) 35.8 % [place] % (Auto) 4.8 % Eos % (Auto) 3.9 % Baso % (Auto) 0.2 % Neut # (Auto) 12.05 H (1.8-7.7) 10^3/u L Lymph # (Auto) 7.9 H (0.8-4.8) 10^3/u L [place] # (Auto) 1.1 H (0.2-0.9) 10^3/u L Eos # (Auto) 0.9 H (0.0-0.8) 10^3/u L Baso # (Auto) 0.1 (0.0-0.1) 10^3/u L Nucleated RBC % (a uto) 0 % Nucleated RBCs # 0.0 /100WBC PT 13.70 (12.1-14.9) SECO NDS INR 1.02 (0.8-1.2) APTT 34.5 (23.9-36.7) SECO NDS Sodium 142 (136-145) mmol/L Potassium 3.5 (3.5-5.1) mmol/L Chloride 110 H (98-107) mmol/L Carbon Dioxide 18 L (22-29) mmol/L Anion Gap 17.5 (5-19) BUN 6 L (8-23) mg/dL Creatinine 0.8 (0.5-0.9) mg/dL GFR Calculation Not Reportable Glucose 123 H (65-115) mg/dL Calculated Osmolal ity 291 (285-295) mOsm/k g Lactic Acid (0.5-2.2) mmol/L Calcium 8.0 L (8.5-10.5) mg/dL Total Bilirubin 0.3 (0.15-1.2) mg/dL AST 17 (0-32) U/L ALT 15 (0-33) U/L Alkaline Phosphata se 148 H (35-105) IU/L Troponin T Baselin e (0-10) ng/L Troponin T 120 [place] (0-10) ng/L Delta Troponin T (0-10) ABS# Total Protein 5.8 L (6.6-8.7) g/dL Albumin 2.6 L (3.5-5.2) g/dL Globulin 3.2 (1.3-4.6) g/dL Urine Color (Yellow) Urine Appearance (CLEAR) Urine pH (5-7) Ur Specific Gravit y (1.005-1.030) Urine Protein (Negative) Urine Glucose (UA) (Normal) Urine Ketones (Negative) Urine Blood (Negative) Urine Nitrate (Negative) Urine Bilirubin (NEGATIVE) Urine Urobilinogen (Negative) mg/dL Ur Leukocyte Ruma ase (Negative) 05/21/20 05/21/20 05/21/20 Range/Units 05:31 06:40 07:45 WBC (4.0-10.0) 10^3/ uL RBC (4.1-5.3) 10^6/u L Hgb (11.5-15.3) g/dL Hct (37.0-47.0) % MCV (81-99) fL MCH (28.0-34.0) pg MCHC (30.0-36.0) g/dL RDW (12.1-15.1) % Plt Count (130-400) 10^3/c mm MPV (7.4-10.4) fL Neut % (Auto) % Lymph % (Auto) % [place] % (Auto) % Eos % (Auto) % Baso % (Auto) % Neut # (Auto) (1.8-7.7) 10^3/u L Lymph # (Auto) (0.8-4.8) 10^3/u L [place] # (Auto) (0.2-0.9) 10^3/u L Eos # (Auto) (0.0-0.8) 10^3/u L Baso # (Auto) (0.0-0.1) 10^3/u L Nucleated RBC % (a uto) % Nucleated RBCs # /100WBC PT (12.1-14.9) SECO NDS INR (0.8-1.2) APTT (23.9-36.7) SECO NDS Sodium (136-145) mmol/L Potassium (3.5-5.1) mmol/L Chloride (98-107) mmol/L Carbon Dioxide (22-29) mmol/L Anion Gap (5-19) BUN (8-23) mg/dL Creatinine (0.5-0.9) mg/dL GFR Calculation Glucose (65-115) mg/dL Calculated Osmolal ity (285-295) mOsm/k g Lactic Acid 3.3 H (0.5-2.2) mmol/L Calcium (8.5-10.5) mg/dL Total Bilirubin (0.15-1.2) mg/dL AST (0-32) U/L ALT (0-33) U/L Alkaline Phosphata se (35-105) IU/L Troponin T Baselin e 84 H (0-10) ng/L Troponin T 120 [place] (0-10) ng/L Delta Troponin T (0-10) ABS# Total Protein (6.6-8.7) g/dL Albumin (3.5-5.2) g/dL Globulin (1.3-4.6) g/dL Urine Color Yellow (Yellow) Urine Appearance Clear (CLEAR) Urine pH 5 (5-7) Ur Specific Gravit y 1.020 (1.005-1.030) Urine Protein Neg (Negative) Urine Glucose (UA) Norm (Normal) Urine Ketones Negative (Negative) Urine Blood Neg (Negative) Urine Nitrate Negative (Negative) Urine Bilirubin Neg (NEGATIVE) Urine Urobilinogen Norm (Negative) mg/dL Ur Leukocyte Ruma ase Negative (Negative) 05/21/20 Range/Units 07:45 WBC (4.0-10.0) 10^3/ uL RBC (4.1-5.3) 10^6/u L Hgb (11.5-15.3) g/dL Hct (37.0-47.0) % MCV (81-99) fL MCH (28.0-34.0) pg MCHC (30.0-36.0) g/dL RDW (12.1-15.1) % Plt Count (130-400) 10^3/c mm MPV (7.4-10.4) fL Neut % (Auto) % Lymph % (Auto) % [place] % (Auto) % Eos % (Auto) % Baso % (Auto) % Neut # (Auto) (1.8-7.7) 10^3/u L Lymph # (Auto) (0.8-4.8) 10^3/u L [place] # (Auto) (0.2-0.9) 10^3/u L Eos # (Auto) (0.0-0.8) 10^3/u L Baso # (Auto) (0.0-0.1) 10^3/u L Nucleated RBC % (a uto) % Nucleated RBCs # /100WBC PT (12.1-14.9) SECO NDS INR (0.8-1.2) APTT (23.9-36.7) SECO NDS Sodium (136-145) mmol/L Potassium (3.5-5.1) mmol/L Chloride (98-107) mmol/L Carbon Dioxide (22-29) mmol/L Anion Gap (5-19) BUN (8-23) mg/dL Creatinine (0.5-0.9) mg/dL GFR Calculation Glucose (65-115) mg/dL Calculated Osmolal ity (285-295) mOsm/k g Lactic Acid (0.5-2.2) mmol/L Calcium (8.5-10.5) mg/dL Total Bilirubin (0.15-1.2) mg/dL AST (0-32) U/L ALT (0-33) U/L Alkaline Phosphata se (35-105) IU/L Troponin T Baselin e (0-10) ng/L Troponin T 120 [place] 111.2 H (0-10) ng/L Delta Troponin T 27.2 H* (0-10) ABS# Total Protein (6.6-8.7) g/dL Albumin (3.5-5.2) g/dL Globulin (1.3-4.6) g/dL Urine Color (Yellow) Urine Appearance (CLEAR) Urine pH (5-7) Ur Specific Gravit y (1.005-1.030) Urine Protein (Negative) Urine Glucose (UA) (Normal) Urine Ketones (Negative) Urine Blood (Negative) Urine Nitrate (Negative) Urine Bilirubin (NEGATIVE) Urine Urobilinogen (Negative) mg/dL Ur Leukocyte Ruma ase (Negative) Discharge Plan Discharge Prescriptions: No Action multivitamin Tablet 1 tab PO DAILY RF: 0 furosemide [Lasix] 40 mg Tablet 40 mg PO DAILY RF: 0 acetaminophen 325 mg Tablet 650 mg PO QID PRN (Reason: Pain) RF: 0 polyethylene glycol 3350 [Miralax] 17 gram Powder In Packet 17 g PO DAILY PRN (Reason: Constipation) RF: 0 pantoprazole 40 mg Tablet,Delayed Release (Dr/Ec) 40 mg PO DAILY RF: 0 simvastatin 20 mg Tablet 20 mg PO DAILY RF: 0 levothyroxine 125 mcg Tablet 125 mcg PO DAILY RF: 0 mirtazapine 45 mg Tablet 45 mg PO DAILY RF: 0 nystatin 100,000 unit/gram Powder 1 applic TOPICAL BID RF: 0 aripiprazole 5 mg Tablet 5 mg PO BID RF: 0 senna 8.6 mg Capsule 8.6 mg PO BID RF: 0 venlafaxine 150 mg Tablet Extended Release 24hr 150 mg PO DAILY RF: 0 Breo Ellipta 200-25 mcg/dose Blister With Device 1 inh INHALATION DAILY RF: 0 Santyl 250 unit/gram Ointment 1 applic TOPICAL DAILY RF: 0 Hemorrhoidal Cream 0.25-1 % Cream 1 applic SD BID PRN (Reason: HEMORRHOIDS) RF: 0 oxycodone-acetaminophen 5-325 mg Tablet 1 tab PO Q6H PRN (Reason: Moderate Pain) Qty: 30 RF: 0 linezolid 600 mg Tablet 600 mg PO Q12H 28 Days Qty: 56 RF: 0 metoprolol tartrate 50 mg Tablet 50 mg PO BID Qty: 60 RF: 0 Coding Level of Care Code ED Remedial Masseur for Darek Ojeda
--- NOTE | 2020-05-21 05:55 | PC.NURSE ---
On arrival at ED NIHSS 11, then with 15 minutes at 0.
[2020-05-21] MEDS: ondansetron 2 mg/ML SDV 2 mL 4 MG IVP (05:59)
[2020-05-21 06:06] LABS: Basophils # 0.1 10^3/uL (0.0-0.1); Basophils % 0.2 %; Eosinophils # 0.9 10^3/uL (0.0-0.8); Eosinophils % 3.9 %; Hematocrit 30.8 % (37.0-47.0); Hemoglobin 9.6 g/dL (11.5-15.3); Lymphocytes # 7.9 10^3/uL (0.8-4.8); Lymphocytes % 35.8 %; Mean Corpuscular HGB Conc 31.2 g/dL (30.0-36.0); Mean Corpuscular Hemoglobin 28.4 pg (28.0-34.0); Mean Corpuscular Volume 91.1 fL (81-99); Monocytes # 1.1 10^3/uL (0.2-0.9); Monocytes % 4.8 %; Neutrophils # 12.05 10^3/uL (1.8-7.7); Neutrophils % 54.6 %; Nucleated Red Blood Cells % 0 %; Platelet Count 449 10^3/cmm (130-400); Red Blood Count 3.38 10^6/uL (4.1-5.3); Red Cell Distribution Width 18.7 % (12.1-15.1); White Blood Count 22.1 10^3/uL (4.0-10.0)
[2020-05-21 06:13] LABS: INR 1.02 (0.8-1.2)
[2020-05-21 06:14] LABS: Partial Thromboplastin Time 34.5 SECONDS (23.9-36.7)
[2020-05-21 06:25] LABS: Alanine Aminotransferase 15 U/L (0-33); Albumin Level 2.6 g/dL (3.5-5.2); Alkaline Phosphatase 148 IU/L (35-105); Anion Gap 17.5 (5-19); Aspartate Amino Transferase 17 U/L (0-32); Blood Urea Nitrogen 6 mg/dL (8-23); Carbon Dioxide 18 mmol/L (22-29); Chloride 110 mmol/L (98-107); Globulin 3.2 g/dL (1.3-4.6); Glucose 123 mg/dL (65-115); Osmolality Calculated 291 mOsm/kg (285-295); Potassium 3.5 mmol/L (3.5-5.1); Sodium 142 mmol/L (136-145); Total Bilirubin 0.3 mg/dL (0.15-1.2); Total Protein 5.8 g/dL (6.6-8.7)
--- NOTE | 2020-05-21 06:28 | P.PNCC_ITS ---
Stroke Alert Activation ED Arrival Date: 05/21/20 ED Arrival Time: 05:40 ED Physican at Bedside: 05:41 Last Known Normal/at Baseline: < 1 hour ago Other Last Known Well Infomation: Stroke team was activated by [facility] at 535. 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 Dr. Ramirez was the receiving physician. I advised that I should be called the soonest Dr. Ramirez had a chance to evaluate the patient and I hung up and called [facility]. I spoke with Ms. Mc, who got the patient up at 5:00 and talked with her. She has severe lower extremity weakness for which she is receiving rehab and she was transferred by Annika lift to wheelchair. The nurses aide stepped out of the room to do something else and when she returned at 510, the patient was a phasic with left gaze deviation. She had agonal respirations. Ms. Mc and the aide got the patient on a Annika lift and got her back to bed and attempted to administer respiration through a mask. The patient pushed away and seemed to be breathing better but her left gaze deviation continued and she remained a phasic. [facility] arrived a few moments later and by the time they got there, that Ms. Mc said that the patient made direct eye contact but her neuro deficits were otherwise the same. Dr. Ramirez called me while I was still on the phone with the nurse and informed me that the patient had relative left-sided weakness, left gaze deviation and that she was not speaking. She was in atrial fibrillation. I had already confirmed that she was not on anticoagulants as I reviewed her history with the nurse at [facility] and we agreed that if the patient still had a neurologic deficit and her CT of the head was negative we would go ahead with TPA. She had a systolic of 135 and a normal blood sugar at the time of onset of symptoms, [facility] Those were confirmed on arrival to our emergency room. I then proceeded to quickly dress and come to the emergency department. On arrival I discovered that the patient is now able to make eye contact. She answered questions appropriately. Speech is fluent. Visual bauman are full and facial movements are symmetric and she is moving both upper extremities symmetrically. I turned her care over to Dr. Roche. She is in atrial fibrillation and had a TIA this morning (or a seizure) and anticoagulation is appropriate. Stroke Alert Activated by: [facility] Stroke Alert Activation Time: 05:35 Stroke MD @ Bedside Time: 05:40 NIH Stroke Scale Time: 05:40 NIH Stroke Scale Score: NIH Stroke Scale Score: 11 NIH stroke score NIHSS: Level Of Consciousness - 1a: 0 Stroke Alert Data/Treatment Time to CT of Head: 05:42 CT Results Time: 06:15 CT Impression: No acute changes Stroke Risk Factors: atrial fibrillation, hypertension, obesity and diabetes mellitus tPA Contraindication: tPA Contraindication: Treatment not indcated Standardized Stroke Orders Used: Yes Other Information: I confirmed from the nurse at [facility] that the 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 There was a question that she might of had a seizure because she had agonal respirations when the nurse arrived. I talked with Dr. Ramirez who reported that the patient's NIH stroke scale score was over 11 because she was a phasic, he thought that she was weak on the left side, and she had gaze deviation. We agreed to go ahead with TPA if her CT of the head was negative and I got dressed and came in as soon as I could. I arrived in the emergency department and had to be screened and by that time it was 6:[address] Ramirez had gone home and the patient's neurologic symptoms have resolved. I confirmed by neurologic exam that she has no residual deficit. I talked with Dr. Roche and we agreed that because she is in atrial fibrillation and clearly had a TIA this morning, she should be treated with anticoagulants. I took time to review her hospital stay from the last few weeks where she was evaluated for positive blood culture, concern for endocarditis and had a heart catheterization that showed no significant coronary disease and at that time she was in normal sinus rhythm. It will be important to watch for further signs of seizure as well as TIAs. Critical Care Time Critical Care Time: less than 30 mins Coding Level of Care Code Acute Outboard System Operator for Darek Ojeda
[2020-05-21 06:50] LABS: Slide Review Slide Review Perform
[2020-05-21] MEDS: sodium chloride 0.9% 500 ML 999 ML IV ×2 (07:03→08:00)
[2020-05-21 07:07] LABS: Add Urine Microscopic? NO
--- NOTE | 2020-05-21 07:10 | PC.NURSE ---
Pt NIHSS in CT at 11, then to 0 with 15 minutes.
[2020-05-21 07:16] LABS: Bilirubin Urine Neg (NEGATIVE); Blood Urine Neg (Negative); Glucose Urine UA Norm (Normal); Ketones Urine Negative (Negative); Leukocyte Esterase Urine Negative (Negative); Nitrate Urine Negative (Negative); Protein Urine Neg (Negative); Urine Appearance Clear (CLEAR); Urine Color Yellow (Yellow); Urobilinogen Urine Norm (Negative); pH Urine 5 (5-7)
--- NOTE | 2020-05-21 07:19 | ECG_ITS ---
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 Measurements Intervals [place] Rate: 111 P: [place]: -1 QRS: 29 QRSD: 81 T: -32 QT: 363 QTc: 493 Interpretive Statements ATRIAL FIBRILLATION WITH RAPID VENTRICULAR RESPONSE LOW QRS VOLTAGE [QRS DEFLECTION < 0.5/1.0 mV IN LIMB/CHEST LEADS] POSSIBLE ANTERIOR MYOCARDIAL INFARCTION , PROBABLY OLD [30 ms Q WAVE IN V3/V4, OR R < 0.2 mV IN V4] Compared to ECG 05/21/2020 06:06:23 Myocardial infarct finding now present Aberrant conduction of supraventricular beat(s) no longer present Ventricular premature complex(es) no longer present Electronically Signed On 05-23-2020 15:16:42 CDT by Angle Bell M.D. [email or web address]/[id number] f
[2020-05-21 07:37] LABS: Troponin(5th) Baseline 84 ng/L (0-10)
--- NOTE | 2020-05-21 08:07 | PC.NURSE ---
New Wound Care instructions [facility] called requesting update, update given. [place] staff stated they had received new wound care instructions for her lower legs per Zohreh Leslie to dress with polymem with a slit then abd pad over top.
[2020-05-21 08:13] LABS: Lactic Sepsis W/Reflex 3.3 mmol/L (0.5-2.2)
[2020-05-21 08:15] LABS: Troponin 5 2HR 111.2 ng/L (0-10); Troponin 5 2HR Delta 27.2 ABS# (0-10)
--- NOTE | 2020-05-21 08:16 | XR_ITS ---
WS: [id number] Portable AP upright chest, 05/21/2020 Clinical Data: chest pain Comparison: Portable chest, 05/15/2020. Findings: No nodules, masses or effusions are seen. The heart is enlarged. The pulmonary vascularity is not increased. No pneumonia or pneumothorax is seen. Monitor leads on the chest wall. XR/XR chest 1V portable [id number] Impression: Cardiomegaly.
[2020-05-21 08:34] LABS: Glucose Point of Care 130 mg/dL (70-110)
[2020-05-21] MEDS: lactated ringers 500 ML 999 ML IV (08:36)
[2020-05-21] MEDS: enoxaparin 120 mg/0.8 mL Syringe SUBCUT (08:36)
[2020-05-21 08:59] LABS: NT Pro B Type Natriuretic Pept 7130 pg/mL (0-125)
--- NOTE | 2020-05-21 09:19 | ECG_ITS ---
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 Measurements Intervals [place] Rate: 103 P: [place]: -1 QRS: 37 QRSD: 89 T: 0 QT: 362 QTc: 475 Interpretive Statements ATRIAL FIBRILLATION WITH RAPID VENTRICULAR RESPONSE LOW QRS VOLTAGE [QRS DEFLECTION < 0.5/1.0 mV IN LIMB/CHEST LEADS] ANTEROSEPTAL MYOCARDIAL INFARCTION , PROBABLY OLD [40+ ms Q WAVE IN V1-V4] Compared to ECG 05/21/2020 06:06:23 Myocardial infarct finding now present Aberrant conduction of supraventricular beat(s) no longer present Ventricular premature complex(es) no longer present Electronically Signed On 05-22-2020 20:57:41 CDT by Angle Bell M.D. [email or web address].[employer]/store/NU/[id number] f
[2020-05-21 09:34] LABS: Reflex Lactate Order REFLEX LACTIC ORDERD
--- NOTE | 2020-05-21 10:05 | PC.NURSE ---
Pt admitted to ICU from ED. Pt alert and oriented to self, place and year. Pt able to answer questions appropriately. Deficits resolved by the time she got out of CT per ED nurse the NIH scale was not completed, no baseline established. Pt has 2 IVs bilat AC. Pt has patent real. Pt aso has multiple lare ulcers on left lower leg, some have eschar some have purulent drainage nted. Pt has open areas on bottom and between thighs.
--- NOTE | 2020-05-21 10:11 | PC.NURSE ---
RECEIVED FROM ER. ALERT/AWAKE. SETTLED INTO BED. STATES SHE THINKS THAT SHE THINKS SHE HAD A STROKE & THAT IS WHY SHE IS HERE.
--- NOTE | 2020-05-21 12:14 | USCV_ITS ---
Leatha Emery Age: 69 Gender: F : 1950 Exam Date: 05/21/2020 13:20 Ordering Phys: Vaibhav Mcknight MD Technologist: Cain Alcala Exam Location: [facility] Indication: CVA Risk Factors: Unknown Previous Vascular Surgery: None Right Brachial BP: / Left Brachial BP: / Right Left Velocity (cm/s) Spectral Plaque Velocity (cm/s) Spectral Plaque Syst/Diast Broadening Syst/Diast Broadening 56.20/ 12.10 Prox CCA 51.80 / 9.70 56.20/ 13.20 Mid CCA 59.40 / 13.00 45.80/ 13.20 Distal CCA 46.70 / 13.80 48.90/ 11.70 Hetro Prox ICA 42.00 / 12.30 Hetro 51.90/ 11.80 Hetro Mid ICA 78.60 / 15.50 66.40/ 18.40 Distal ICA 78.60 / 19.20 48.20 ECA 26.50 1.18 ICA/CCA 1.32 Antegrade Vertebral Antegrade 28.90/ 9.20 cm/s 40.20/ 11.90 cm/s Bi Subclavian Bi 46.00 46.60 CONCLUSIONS Right ICA stenosis <50%. Mild atheromatous plaque right carotid bulb/ICA. Left ICA stenosis <50%. Mild atheromatous plaque left carotid bulb/ICA. Normal antegrade Doppler flow noted in the right vertebral artery. Normal antegrade Doppler flow noted in the left vertebral artery. Sharad De Los Santos MD (Electronically Signed) Final Date: 21 May 2020 16:50 S
--- NOTE | 2020-05-21 12:37 | PM.HP ---
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, she tells me that her has , she has 2 sons here in town. Patient tells me that she is here at [facility], because she was told she had a stroke. Currently she has no significant complaints, she tells me that she has chronic left upper and left lower extremity weakness from her previous stroke, she is also has paresthesias in her left upper lower extremities, she is also leaning to the left side, which she says is chronic after her stroke, she is Annika lift dependent, she denies any chest pain, any shortness of breath, lightheadedness, dizziness, no significant pain, would like to drink something. I spoke to [facility], there are nurses over there stated that patient has been doing well since her discharge, she has been getting wound care for bilateral lower extremity cellulitis, and chronic wound care for her right lower extremity multiple ulcers. However this morning at roughly 5 AM, patient was not acting appropriately, she she was leaning to the left, her pupils were pinpoint,, left gaze deviation, a aphasia, agonal respiration, at one point nurses tried to bag her, but she forced nurses off of her, continue left gaze palsy, with aphasia, no facial droop, does have chronic left upper lower extremity weakness, no complaints of blurry vision. Patient arrived [facility], stroke alert was called, Dr. Owusu saw the patient, there was concern for hemiplegia and aphasia, however patient was asymptomatic on arrival to the emergency room, was not deemed a candidate for TPA, found to be in atrial fibrillation, not on anticoagulation CT head was negative for intracranial bleed. During my neurologic exam with patient, she does have left upper left lower extremity weakness, when asked why she is weak at this site she tells me that it from her previous stroke, no facial droop, no slurring of her speech. Patient really does not have any complaints, just really would like to drink something. Review of Systems Const: Denies: fever(s), chills, fatigue or malaise Eyes: Denies: change in vision or blurry vision ENMT: Denies: nasal congestion Card: Denies: chest pain or palpitations Resp: Denies: dyspnea, productive cough, non-productive cough or wheezing GI: Denies: abdominal pain, nausea, vomiting, hematemesis, diarrhea, constipation, hematochezia or melena : Denies: flank pain, dysuria or urinary frequency Musc: Denies: neck pain or back pain Skin/Breast: Denies: rash Neuro: Denies: headache(s), dizziness or vertigo Psych: Denies: anxiety or depression Endo: Denies: polyuria or polydipsia Medications/Allergies Home Medications Medication Instructions Recorded Confirmed Last Taken Type acetaminophen 650 mg PO QID PRN 01/30/20 05/21/20 01/29/20 History multivitamin 1 tab PO DAILY 01/30/20 05/21/20 05/07/20 History albuterol sulfate 1 inh INHALATION QID PRN 05/21/20 05/21/20 Unknown History bisacodyl 10 mg CO DAILY PRN 05/21/20 05/21/20 Unknown History calcium carbonate [Calcium Antacid] 200 mg PO Q4H PRN 05/21/20 05/21/20 Unknown History calcium-vitamin D3-vitamin K 1 tab PO DAILY 05/21/20 05/21/20 Unknown History cyanocobalamin (vitamin B-12) 1,000 mcg PO DAILY 05/21/20 05/21/20 Unknown History cyclobenzaprine 5 mg PO TID PRN 05/21/20 05/21/20 Unknown History denosumab [Prolia] 60 mg SUBCUT Q30D 05/21/20 05/21/20 Unknown History fcixurhlslk-yryvexxul-ewuviqpo 1 inh INHALATION DAILY 05/21/20 05/21/20 Unknown History [Trelegy Ellipta] gabapentin 300 mg PO TID 05/21/20 05/21/20 Unknown History levalbuterol HCl 1.25 mg INHALATION Q6H PRN 05/21/20 05/21/20 Unknown History magnesium hydroxide [Milk of 30 ml PO DAILY PRN 05/21/20 05/21/20 Unknown History Magnesia] metoprolol tartrate 12.5 mg PO BID 05/21/20 05/21/20 Unknown History ondansetron HCl [Zofran] 4 mg PO TID PRN 05/21/20 05/21/20 Unknown History Allergies Allergy/AdvReac Type Severity Reaction Status Date / Time clarithromycin Allergy Unknown Unknown Verified 04/16/20 14:33 hydrocodone Allergy Unknown Unknown Verified 04/16/20 14:33 metformin Allergy Unknown Unknown Verified 04/16/20 14:33 sitagliptin [From Januvia] Allergy Unknown Unknown Verified 04/16/20 14:33 tetanus and diphtheria Allergy Unknown Unknown Verified 04/16/20 14:33 toxoids triamcinolone Allergy Unknown Unknown Verified 04/16/20 14:33 PFSH Acute PFSH: Medical History Chronic kidney disease, stage 3 COPD (chronic obstructive pulmonary disease) Diabetic nephropathy Hypertension Hypothyroidism Leg ulcer, left PVD (peripheral vascular disease) Sleep apnea Type 2 diabetes mellitus Vascular dementia Surgical History History of bilateral knee arthroplasty S/P breast lumpectomy Family History Father Diabetes Hypertension Mother CAD (coronary artery disease) Hypertension Social History Smoking and tobacco status: never smoked Alcohol intake: never Household members: other Housing: [facility] Current gender identity: Female Additional social history: -lives at [facility] Vitals/I&O/Wt Last Vital Signs Temp 97.7 F 05/21/20 10:06 Pulse 103 H 05/21/20 11:00 Resp 17 05/21/20 11:00 BP 102/67 05/21/20 11:00 Pulse Ox 96 05/21/20 11:00 05/20/20 05/21/20 05/21/20 22:59 06:59 14:59 Intake Total 1000 / 1000 Balance 1000 / 1000 Weight last 48 hrs Weight 117.526 kg Physical Exam Const: COMMON NORMALS: no acute distress and patient oriented x3 GENERAL APPEARANCE: cooperative and comfortable HENMT: COMMON NORMALS: normocephalic HEAD & SCALP: normocephalic Eye: COMMON NORMALS: Equal, round and reactive pupils present, EOMs intact bilaterally and no papilledema GENERAL EYE: appearance normal, both eyes and all related structures PUPIL: Yes Equal, round and reactive pupils present DIRECT OPHTHALMOSCOPY: Yes no papilledema Neck/C-Spine: COMMON NORMALS: full ROM, no lymphadenopathy, no JVD and Thyroid normal THYROID: Thyroid normal Lymph: LYMPHATIC: no lymphadenopathy noted Resp: COMMON NORMALS: normal respiratory effort, No retractions, No use of accessory muscles and clear to auscultation bilaterally AUSCULTATION: clear to auscultation bilaterally Cardio: COMMON NORMALS: no JVD, regular rate, regular rhythm, S1 normal heart sound present, S2 normal heart sound present, No gallops present (Cardio), No clicks present (Cardio) and No murmurs present (Cardio) RATE: regular rate RHYTHM: regular rhythm HEART SOUNDS: S1 normal heart sound present and S2 normal heart sound present GI: COMMON NORMALS: Normal to inspection, nondistended, normoactive bowel sounds present, Soft to palpation, non-tender and No hepatosplenomegaly present PALPATION: Yes Soft to palpation and Yes No hepatosplenomegaly present Extremity: COMMON NORMALS: normal to inspection, full ROM and no pedal edema Neuro: COMMON NORMALS: patient oriented x3 and CN's II-XII intact bilaterally SENSORIUM/ORIENTATION: Yes alert, Yes oriented to person, Yes oriented to place and Yes oriented to time COORDINATION/BALANCE: ryrchw-mf-ixtz test normal SPEECH: speech normal OTHER: Strength right upper extremity 5 out of 5, strength left upper extremity 4 out of 5, strength right lower extremity, 5 out of 5, strength left lower extremity 4-5 Pupils bilaterally reactive to light, no significant facial, no slurring of her speech, she does tend to favor the left side Psych: COMMON NORMALS: mental status grossly normal, Normal thought process present and cooperative THOUGHT PROCESS: Normal thought process present Data : 05/21/20 05:31 05/21/20 05:31 A&P Assessment and plan (1) CVA (cerebral vascular accident): -Has a previous history of CVA, with residual left upper and lower extremity weakness, paresthesias, and leans to the left, Annika lift dependent, chronic Patino -At 5 AM, had concerns for left-sided gaze palsy, a aphasia, but was asymptomatic when she arrived in the emergency room, not a TPA candidate, CT head no intracranial bleed -NIH stroke scale 2, but hard to assess as she has chronic left upper lobe tremor weakness, I do not know what her baseline is -Has a history of atrial fibrillation, not on anticoagulation for what I presume to be secondary to anemia, transfusion dependent anemia, no known history of GI bleeds, or falls -In the ER she was found to have atrial fibrillation, heart rates in the high 120s Plan: -Admit to the cardiac stepdown unit -Aspirin, statin -She received therapeutic Lovenox in the ER, start Heparin drip 12 hours after, monitor hemoglobin closely, monitor for bloody or black stools -Continue IV fluids -Neurochecks, aspiration precautions -Bedside swallow eval, PT OT -Manage atrial fibrillation with metoprolol 12.5 twice daily -Allow for permissive hypertension for the next 24 hours -Bilateral carotid artery ultrasounds Status: Acute (2) Chronic kidney disease, stage 3: Creatinine 0.8- Status: Chronic (3) Acute on chronic anemia: -History of transfusions on the last hospital admission secondary to anemia, her Hemoccult stool was positive -We will continue to monitor hemoglobin on heparin drip Status: Acute (4) Bacteremia: -History of VRE bacteremia, with negative transesophageal echocardiogram, respiratory cultures positive for MRSA, urine cultures positive for ESBL E. coli -For now continue Zyvox Status: Acute (5) Atrial fibrillation: -Anticoagulate with heparin, metoprolol for rate control Status: Acute (6) Sleep apnea: Status: Acute (7) Vascular dementia: Status: Chronic Qualifiers: Dementia behavioral disturbance: with behavioral disturbance Qualified Code(s): F01.51 - Vascular dementia with behavioral disturbance (8) Diabetic nephropathy: Status: Chronic Qualifiers: Diabetes mellitus type: type 2 Qualified Code(s): E11.21 - Type 2 diabetes mellitus with diabetic nephropathy (9) Type 2 diabetes mellitus: -Low-dose sliding scale Status: Chronic Qualifiers: Diabetes mellitus complication status: with other specified complication Diabetes mellitus manager intermediate insulin use: without half-way use Qualified Code(s): E11.69 - Type 2 diabetes mellitus with other specified complication (10) Leg ulcer, left: -Continue wound dressing, Zyvox Status: Acute (11) Hypertension: Status: Chronic Qualifiers: Hypertension type: essential hypertension Qualified Code(s): I10 - Essential (primary) hypertension (12) COPD (chronic obstructive pulmonary disease): Status: Chronic Qualifiers: COPD type: emphysema Emphysema type: unspecified Qualified Code(s): J43.9 - Emphysema, unspecified (13) Elevated troponin: Status: Acute (14) NSTEMI (non-ST elevated myocardial infarction): -No complaints of chest pain, shortness of breath -Baseline troponin 84, 120-minute 111.2, delta of 27.2 -EKG atrial fibrillation, no acute ST-T wave changes -EF on last echocardiogram in April 2020, showed grossly normal ejection fraction -Continue aspirin, statin, telemetry monitoring, serial EKGs, serial troponins -Likely supply demand ischemia from atrial fibrillation Status: Acute (15) Leukocytosis: -UA negative for UTI, chest x-ray negative for pneumonia, bilateral hernandez cellulitis, with left hernandez ulcers, healing well,, on appropriate antibiotics, Zyvox -We will continue to monitor, monitor for fevers, monitor hemodynamics Status: Acute Attestations Medical Necessity Statement*: Patient requires hospitalization, inpatient, greater than 2 midnights, for CVA, atrial fibrillation,nstemi Coding Level of Care Code Acute Network Control Operator for [facility] Diagnoses CVA (cerebral vascular accident) I63.9 Chronic kidney disease, stage 3 N18.3 Acute on chronic anemia D64.9 Bacteremia R78.81 Atrial fibrillation I48.91 Sleep apnea G47.30 Vascular dementia F01.51 Dementia behavioral disturbance: with behavioral disturbance Diabetic nephropathy E11.21 Diabetes mellitus type: type 2 Type 2 diabetes mellitus E11.69 Diabetes mellitus complication status: with other specified complication Diabetes mellitus half-way insulin use: without manager intermediate use Leg ulcer, left L97.929 Hypertension I10 Hypertension type: essential hypertension COPD (chronic obstructive pulmonary disease) J43.9 COPD type: emphysema Emphysema type: unspecified Elevated troponin R79.89 NSTEMI (non-ST elevated myocardial infarction) I21.4 Leukocytosis D72.829
[2020-05-21 12:57] LABS: Lactic Acid level (Lactate) 2.3 mmol/L (0.5-2.2)
[2020-05-21 13:09] LABS: Troponin 5 6HR 145.2 ng/L (0-10); Troponin 5 6HR Delta 61.2 ng/L (0-12)
[2020-05-21 13:15] LABS: Procalcitonin 0.17 ng/mL (0-0.5)
--- NOTE | 2020-05-21 13:19 | ECG_ITS ---
[facility] Test Date: 2020-05-21 Pat Name: Leatha Emery Department: Room: ICU03 Gender: Female Special Education Director: : 1950 Requested By: Evelin Shah Order Number: [id number] Jacquie MD: Angle Bell M.D. Measurements Intervals [place] Rate: 99 P: [place]: -1 QRS: 37 QRSD: 71 T: 17 QT: 344 QTc: 443 Interpretive Statements ATRIAL FIBRILLATION LOW QRS VOLTAGE [QRS DEFLECTION < 0.5/1.0 mV IN LIMB/CHEST LEADS] POSSIBLE ANTERIOR MYOCARDIAL INFARCTION [30 ms Q WAVE IN V3/V4, OR R < 0.2 mV IN V4], PROBABLY OLD Compared to ECG 05/21/2020 09:14:28 No significant changes Electronically Signed On 05-22-2020 20:56:09 CDT by Angle Bell M.D. [email or web address].CellViruniversity of mississippi medical centerYouStickerdetwiler [facility].[employer]/store/OM/[id number]
[2020-05-21 13:27] LABS: C Reactive Protein 35.3 mg/L (0.0-4.9); Chol HDL Ratio 2.14 mg/dL (0.0-4.40); Cholesterol 92 mg/dL (0-200); HDL Cholesterol 43 mg/dL (60-100); LDL Cholesterol Calculated 24 mg/dL (50-129); LDL HDL Ratio 0.56 RATIO (0.00-3.22); Triglycerides 126 mg/dL (0-150)
[2020-05-21 13:40] LABS: Erythrocyte Sedimentation Rate 57 mm/hr (0-15)
[2020-05-21 14:02] LABS: Estmated Average Glucose 105; Hemoglobin A1C 5.3 % (4.0-6.0)
[2020-05-21] MEDS: aspirin 81 mg EC Tablet PO (14:07)
[2020-05-21] MEDS: sodium chloride 0.9% 1,000 ML 75 ML IV (14:07)
[2020-05-21] MEDS: linezolid 600 mg Tablet PO (14:07)
[2020-05-21] MEDS: levothyroxine 125 mcg Tablet PO (14:07)
[2020-05-21] MEDS: atorvastatin 40 mg Tablet PO (14:07)
--- NOTE | 2020-05-21 14:29 | PM.PN ---
Subjective Subjective: Interval history: Interval note: Patient known to me from a previous hospitalization where her left leg was debrided around 10 days ago. She reportedly has continued following up in the wound clinic but the local wound care has apparently changed and I am not sure what is happening to her leg now. She is now readmitted and it was noted that the area on the bottom of her foot which has formed another eschar. Dr. Mcknight has asked if I would consider re-debriding the area. Vitals/I&O/Wt Last Vital Signs Temp 97.7 F 05/21/20 10:06 Pulse 112 H 05/21/20 13:54 Resp 17 05/21/20 11:00 BP 102/67 05/21/20 11:00 Pulse Ox 98 05/21/20 13:54 05/20/20 05/21/20 05/21/20 22:59 06:59 14:59 Intake Total 1000 / 1000 Balance 1000 / 1000 Weight last 48 hrs Weight 259 lb 1.6 oz Physical Exam Narrative: EXAM NARRATIVE: The left lower leg has wounds that are in the process of healing. The majority actually looks much better than I would have anticipated it would at this point in time. The area on the bottom of her foot, however, including about half of the entire sole and the heel has re-eschared. Her calcaneus is still exposed. Data : 05/21/20 05:31 05/21/20 05:31 Micro: Microbiology 05/21/20 14:05 Blood Culture - Preliminary Blood SPECIMEN COLLECTED 05/21/20 14:00 Blood Culture - Preliminary Blood SPECIMEN COLLECTED A&P Assessment and plan (1) Eschar of foot: This area occupies perhaps 50 cm? of tissue. I discussed trying to locally debride this eschar in the ICU under local anesthetic with the patient. She is agreeable to this. We will get the necessary supplies and try to debride her heel/sole today. Status: Acute Attestations Medical Necessity Statement*: See admitting service's notation. Coding Level of Care Code Acute Mainframe Programmer for [facility] Diagnoses Eschar of foot R23.4
[2020-05-21] MEDS: acetaminophen 325 mg Tablet 650 MG PO (14:44)
--- NOTE | 2020-05-21 15:35 | PM.OP ---
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 Post-op diagnosis: same Procedure Done: Sharp debridement of 50 cm? of skin/subcutaneous tissue/eschars from left foot. Specimens removed/disposition: As above. Pathology: none sent Surgeon: Surya Russo Anesthesia: Local Estimated blood loss (mL): 5 Complications: None. Condition: stable Procedure: The patient was encountered in her room in the intensive care unit. The left foot was propped up on a pillow so that there was good exposure to the left sole and heel. The area was cleansed with Betadine. 1% lidocaine was used for local anesthesia throughout the procedure. Approximately 50 cm? of eschar were sharply debrided/removed from the sole and the heel of the patient's left foot. Some triple antibiotic ointment was placed over the wound and a bandage was applied.
[2020-05-21] MEDS: neomycin-poly-bacitracin oint 28 gm 1 APPLIC TOPICAL (15:58)
[2020-05-21] MEDS: lidocaine 1% INJ 20 mL INJECTION (15:58)
--- NOTE | 2020-05-21 16:20 | PC.NURSE ---
Pt yelling put repeatedly. Pt has been instructed and demonstrated dictaphone typist light use. She prefers to yell. She is yelling out for Dr Russo, since he debrided her foot, for multiple reasons.
--- NOTE | 2020-05-21 16:23 | PC.OT ---
OT note: Pt was preparing for debridement when OT arrived at ICU. Will attempt eval later as able.
[2020-05-21] MEDS: ondansetron 4 MG Tablet PO (16:34)
[2020-05-21 16:52] LABS: Glucose Point of Care 127 mg/dL (70-110)
[2020-05-21 17:50] LABS: Troponin T (5th) Once 168 ng/L (0-10)
--- NOTE | 2020-05-21 18:10 | PC.NURSE ---
Report faxed to [facility]. Further report given to ILA Ghotra.
--- NOTE | 2020-05-21 18:30 | PC.NURSE ---
Pt transferred to CSU via bed. Pt remained resting with eyes closed throughout. Belongings (Annika pad from [facility]) with pt. Rounded with Dr Arabella sanchez pt while there.
[2020-05-21] MEDS: metoprolol tartrate 50 mg Tablet PO (18:34)
--- NOTE | 2020-05-21 19:35 | P.CONIM_ITS ---
Providers/Reason For Consult Consulting Physican/Specialty*: Dr. Bell Reason for Consult*: Elevated troponin Attending Physician: Vaibhav Mcknight MD History of Present Illness History of Present Illness Leatha Emery is a 69 year old female from [place] who was just discharged from the hospital to the skilled nursing. She was admitted last time with left lower extremity ulcers, cellulitis, acute kidney injury, sepsis and concern of ischemic left lower extremity. She was placed on broad-spectrum antibiotics. She underwent peripheral angiogram for concerns of CLI and did not have any flow-limiting stenosis and good two-vessel runoff to left foot. JAXSON was performed as patient's blood cultures grew vancomycin-resistant enterococcus and did not demonstrate a vegetation. 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 She has history of nec-wjolnix-xrrwptcbj type 2, history of atrial fibrillation not on any anticoagulation, history of anemia, history of transfusions secondary to anemia. Most of the history obtained from chart. At the time of evaluation, she was sound asleep and could not talk to me much. She is also leaning to her left side. She denied any chest pain, any shortness of breath, lightheadedness, dizziness on admission. However this morning at roughly 5 AM, she was not acting appropriately, leaning to the left, pupils were pinpoint, left gaze deviation, aphasia, agonal respiration as per report. At one point nurses tried to bag her, but she forced nurses off of her. Patient arrived [facility], stroke alert was called. Dr. Owusu saw the patient for concern for hemiplegia and aphasia. However patient was asymptomatic on arrival to the emergency room. She was not deemed a candidate for TPA, found to be in atrial fibrillation, not on anticoagulation (possibly given h/o GIB). CT head was negative for intracranial bleed. I have been asked to evaluate the patient as patient's troponin was elevated. Review of Systems Const: Denies: fever(s), chills, fatigue or malaise Eyes: Denies: change in vision or blurry vision ENMT: Denies: nasal congestion Card: Denies: chest pain or palpitations Resp: Denies: dyspnea, productive cough, non-productive cough or wheezing GI: Denies: abdominal pain, nausea, vomiting, hematemesis, diarrhea, constipation, hematochezia or melena : Denies: flank pain, dysuria or urinary frequency Musc: Denies: neck pain or back pain Skin/Breast: Denies: rash Neuro: Denies: headache(s), dizziness or vertigo Psych: Denies: anxiety or depression Endo: Denies: polyuria or polydipsia Meds/Allergies Home Medications and Allergies Home Medications Medication Instructions Recorded Confirmed Last Taken Type acetaminophen 650 mg PO Q6H PRN 05/22/20 05/22/20 Unknown History aripiprazole 5 mg PO BID 05/22/20 05/22/20 Unknown History aspirin 81 mg PO DAILY 05/22/20 05/22/20 Unknown History atorvastatin 40 mg PO DAILY 05/22/20 05/22/20 Unknown History cyclobenzaprine 5 mg PO TID PRN 05/22/20 05/22/20 Unknown History fluticasone furoate-vilanterol 1 inh INHALATION DAILY 05/22/20 05/22/20 Unknown History [Breo Ellipta] furosemide [Lasix] 40 mg PO DAILY 05/22/20 05/22/20 Unknown History insulin aspart U-100 See Rx Instructions .ROUTE .COMPLEX 05/22/20 05/22/20 Unknown History levothyroxine 125 mcg PO DAILY 05/22/20 05/22/20 Unknown History linezolid 600 mg PO BID 05/22/20 05/22/20 Unknown History metoprolol tartrate 50 mg PO BID 05/22/20 05/22/20 Unknown History mirtazapine 45 mg PO BEDTIME 05/22/20 05/22/20 Unknown History multivitamin 1 tab PO DAILY 05/22/20 05/22/20 Unknown History nystatin 1 applic TOPICAL BID 05/22/20 05/22/20 Unknown History oxycodone-acetaminophen [Percocet] 1 tab PO Q4H PRN 05/22/20 05/22/20 Unknown History pantoprazole 40 mg PO DAILY 05/22/20 05/22/20 Unknown History ckyifaoyc-zrvhpshp-kleof-w.pet 1 applic MO BID PRN 05/22/20 05/22/20 Unknown History [Hemorrhoidal Cream] polyethylene glycol 3350 17 g PO DAILY PRN 05/22/20 05/22/20 Unknown History senna 8.6 mg PO BID 05/22/20 05/22/20 Unknown History simvastatin 20 mg PO BEDTIME 05/22/20 05/22/20 Unknown History venlafaxine 150 mg PO DAILY 05/22/20 05/22/20 Unknown History Allergies Allergy/AdvReac Type Severity Reaction Status Date / Time clarithromycin Allergy Unknown Unknown Verified 04/16/20 14:33 hydrocodone Allergy Unknown Unknown Verified 04/16/20 14:33 metformin Allergy Unknown Unknown Verified 04/16/20 14:33 sitagliptin [From ] Allergy Unknown Unknown Verified 04/16/20 14:33 tetanus and diphtheria Allergy Unknown Unknown Verified 04/16/20 14:33 toxoids triamcinolone Allergy Unknown Unknown Verified 04/16/20 14:33 Current Medications Current Medications Generic Name Dose Route Start Last Admin Trade Name Freq PRN Reason Stop Dose Admin Acetaminophen 650 mg 05/21/20 12:11 05/21/20 14:44 Tylenol PO 650 mg QID PRN Administration Pain Aspirin 81 mg 05/21/20 12:30 05/21/20 14:07 Aspirin Ec PO 81 mg DAILY SWATI Administration Atorvastatin Calcium 40 mg 05/21/20 13:00 05/21/20 14:07 Lipitor PO 40 mg DAILY SWATI Administration Sodium Chloride 1,000 mls @ 75 mls/hr 05/21/20 12:15 05/21/20 14:07 Sodium Chloride 0.9% IV 75 mls/hr .[id number] SWATI Administration Insulin Aspart 0 unit 05/21/20 18:00 05/21/20 18:22 Novolog SUBCUT Not Given [facility] Protocol Levothyroxine Sodium 125 mcg 05/21/20 14:00 05/21/20 14:07 Synthroid PO 125 mcg DAILY SWATI Administration Linezolid 600 mg 05/21/20 13:00 05/21/20 14:07 Zyvox Tablet PO 600 mg Q12H SWATI Administration Protocol Metoprolol Tartrate 50 mg 05/21/20 18:00 05/21/20 18:34 Lopressor PO 50 mg BID SWATI Administration Neomycin/Polymyxin/Bacitracin 1 applic 05/21/20 14:33 05/21/20 15:58 Neosporin Oint Tube TOPICAL 1 applic BID PRN Administration with dressing changes Ondansetron HCl 4 mg 05/21/20 12:11 05/21/20 16:34 Zofran PO 4 mg TID PRN Administration Nausea PFSH Acute PFSH: Medical History Chronic kidney disease, stage 3 COPD (chronic obstructive pulmonary disease) Diabetic nephropathy Hypertension Hypothyroidism Leg ulcer, left PVD (peripheral vascular disease) Sleep apnea Type 2 diabetes mellitus Vascular dementia Surgical History History of bilateral knee arthroplasty S/P breast lumpectomy Family History Father Diabetes Hypertension Mother CAD (coronary artery disease) Hypertension Social History Smoking and tobacco status: never smoked Alcohol intake: never Household members: other Housing: Care Home Current gender identity: Female Additional social history: -lives at [facility] Vitals/I&O/Wt Last Vital Signs Temp 97.7 F 05/21/20 10:06 Pulse 147 H 05/21/20 17:00 Resp 18 05/21/20 17:00 BP 86/56 05/21/20 17:00 Pulse Ox 98 05/21/20 17:00 05/21/20 05/21/20 05/21/20 06:59 14:59 22:59 Intake Total 1000 / 1000 Balance 1000 / 1000 Weight last 48 hrs Weight 259 lb 1.6 oz Physical Exam Const: COMMON NORMALS: no acute distress GENERAL APPEARANCE: well kempt and well hydrated NUTRITIONAL APPEARANCE: obese HENMT: COMMON NORMALS: normocephalic, atraumatic, external ears normal and Normal external nose present HEAD & SCALP: normocephalic and atraumatic FACE & SINUS: no edema NOSE: Normal external nose present EXTERNAL EAR: Yes external ears normal Eye: COMMON NORMALS: Equal, round and reactive pupils present, EOMs intact bilaterally and no scleral icterus GENERAL EYE: appearance normal, both eyes and all related structures PUPIL: Yes Equal, round and reactive pupils present Neck/C-Spine: COMMON NORMALS: no lymphadenopathy, supple and no JVD GENERAL: Yes normal visual inspection and Yes trachea midline CAROTIDS: Yes normal carotid upstroke CERVICAL SPINE: Yes cervical ROM normal Lymph: LYMPHATIC: no lymphadenopathy noted Chest: COMMONS NORMALS: normal inspection of the chest and normal palpation of entire chest wall CHEST: Yes Symmetrical chest wall rise, No mass, No tenderness, No Surgical scars present (Chest) and No rash Resp: COMMON NORMALS: clear to auscultation bilaterally AUSCULTATION: clear to auscultation bilaterally, no crackles, no rales, no rhonchi, no wheezes and vesicular breath sounds Cardio: COMMON NORMALS: no JVD, regular rate, regular rhythm, S1 normal heart sound present, S2 normal heart sound present and Peripheral pulses 2+ throughout PALPATION: normal PMI RATE: regular rate RHYTHM: regular rhythm HEART SOUNDS: S1 normal heart sound present, S2 normal heart sound present, no click, no gallops and no murmurs BRUITS: no carotid bruits PERIPHERAL PULSES: Peripheral pulses 2+ throughout, radial pulses present, femoral pulses present, posterior tibial pulses present and dorsalis pedis present GI: COMMON NORMALS: Soft to palpation and No hepatosplenomegaly present AUSCULTATION: Yes normoactive bowel sounds PALPATION: Yes Soft to palpation, No Tenderness to palpation present (GI), No Guarding due to palpation present (GI), No Rigid due to palpation, Yes No hepatosplenomegaly present, No Pulsatile mass present and No Ascites present PERCUSSION: tympanic to percussion Extremity: GENERAL: No calf tenderness, No clubbing, No cyanosis, Yes edema an d No pallor Neuro: COMMON NORMALS: CN's II-XII intact bilaterally, no focal motor deficits, no sensory deficits noted and gait normal Psych: COMMON NORMALS: Normal thought process present and speech normal APPEARANCE: Yes well kempt SPEECH: Yes normal speech MOOD & AFFECT: Yes euthymic mood THOUGHT PROCESS: Normal thought process present THOUGHT CONTENT: Yes Normal thought content present Skin: HAIR: normal NAILS: normal and no clubbing Data Micro: Micro: Microbiology 05/21/20 14:05 Blood Culture - Pr eliminary Blood SPEC[facility]EN [facility] 05/21/20 14:00 Blood Culture - Pr eliminary Blood SPECIMEN [facility] Imaging^: Other Imaging: Radiologist's impression: # JAXSON CONCLUSIONS 1-Normal left ventricular cavity size. Normal left ventricular systolic function. Left ventricular ejection fraction is estimated at 55 %. 2-Moderately increased right atrial size. 3-Moderately increased left atrial size. 4-No thrombus visualized in the left atrial appendage. 5-Patent foramen ovale. Sskg-re-zppyx shunt seen at the atrial level. 6-Mildly thickened mitral valve. No mitral valve stenosis. Mild mitral valve regurgitation. 7-Moderate aortic valve calcification. No aortic valve stenosis. Trace aortic valve regurgitation. 8-Zyfg-vx-moderate tricuspid valve regurgitation. 9-There is no pericardial effusion. 10-No obvious vegetation or source of infection noted 11-There are no prior echocardiogram studies to compare. A&P Assessment and plan (1) Elevated troponin: Type 2. EKG not very different from previous one. EKG today showed atrial fibrillation with low QRS volatge in precordial leads and poor anterior R wave progression. -Not ACS. No cornoary angiogram warranted. -She is already on ASA, statin and metoprolol. Heparin gtt for Atrial fib. -May consider stress test later in hospitalization or as an outpatient. Status: Acute (2) Atrial fibrillation: Given her h/o stroke and possible TIA this visit. -She would benefit from anticoagulation. 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 due to underlying condition: Status: Acute (4) Bilateral leg ulcer: Status: Chronic Qualifiers: Non-pressure ulcer stage: unspecified non-pressure ulcer stage Qualified Code(s): L97.919 - Non-pressure chronic ulcer of unspecified part of right lower leg with unspecified severity; L97.929 - Non-pressure chronic ulcer of unspecified part of left lower leg with unspecified severity (5) CVA (cerebral vascular accident): Status: Acute Qualifiers: CVA mechanism: unspecified Qualified Code(s): I63.9 - Cerebral infarction, unspecified (6) Leukocytosis: Status: Acute Qualifiers: Leukocytosis type: unspecified Qualified Code(s): D72.829 - Elevated white blood cell count, unspecified (7) Type 2 diabetes mellitus: Status: Chronic Qualifiers: Diabetes mellitus complication status: with other specified complication Diabetes mellitus termite control servicer insulin use: without penitentiary use Qualified Code(s): E11.69 - Type 2 diabetes mellitus with other specified complication Additional A&P Information anemia h/o VRE bateremia Thank you for allowing me to participate in patient's care. Please feel free to call with questions or concerns. Consult [facility] Medical Necessity Statement: As per primary team. Coding Level of Care Code Acute Labor Economics Professor for g Fwd Exam Comprehensive Diagnoses Elevated troponin R79.89 Atrial fibrillation I48.11 Atrial fibrillation type: longstanding persistent 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 Bilateral leg ulcer L97.919; L97.929 Non-pressure ulcer stage: unspecified non-pressure ulcer stage CVA (cerebral vascular accident) I63.9 CVA mechanism: unspecified Leukocytosis D72.829 Leukocytosis type: unspecified Type 2 diabetes mellitus E11.69 Diabetes mellitus complication status: with other specified complication Diabetes mellitus penitentiary insulin use: without termite control servicer use
[2020-05-21] MEDS: heparin drip 25,000 UNIT/500 ML PREMIX 34 UNIT IV (20:18)
[2020-05-21] MEDS: heparin 5,000 unit/mL INJ 1 mL IV (20:18)
[2020-05-21] MEDS: HYDROmorphone 1 mg/mL INJ 1 mL 2 MG IVP (20:28)
--- NOTE | 2020-05-21 22:15 | PC.NURSE ---
Patient's yelling was heard down the gee. Nurse went to see patient and patient stated that her neck and back were hurting. Dr. Mittal notified. PRN ordered Dilaudid given and patient repositioned. Patient is now resting comfortably with eyes closed. Will monitor. Patient has call light within reach. Patient is alert and oriented x4 at this time, but due to history of confusion, bed alarm is set.
[2020-05-22] VITALS (7 sets, daily range): BP systolic 97–107; BP diastolic 63–82; PULSE 90–113; RESP 14–29; TEMP 36.4–37.1; O2SAT 96–98
[2020-05-22 00:02] LABS: Glucose Point of Care 126 mg/dL (70-110)
[2020-05-22] MEDS: linezolid 600 mg Tablet PO ×2 (02:08→15:24)
[2020-05-22] MEDS: sodium chloride 0.9% 1,000 ML 75 ML IV (02:08)
--- NOTE | 2020-05-22 02:46 | PC.NURSE ---
Patient accidentally removed IV from right AC. Cather was intact. Left AC IV still in place. Patient is not complaining of any pain at this time. Patient was repositioned in bed. Will monitor.
[2020-05-22 03:02] LABS: INR 1.39 (0.8-1.2)
--- NOTE | 2020-05-22 03:13 | PC.NURSE ---
Dr. Mittal notified of lab and nursing staff being unable to get morning labs on patient due to difficulty with veins.
[2020-05-22 03:24] LABS: Partial Thromboplastin Time > 250.0 SECONDS (23.9-36.7)
--- NOTE | 2020-05-22 03:29 | PC.NURSE ---
Dr. Mittal notified of PTT >250 on Heparin drip. Ordered to turn drip off for 4 hours and check PTT in four hours.
[2020-05-22 06:21] LABS: Glucose Point of Care 107 mg/dL (70-110)
[2020-05-22 07:46] LABS: Basophils # 0.1 10^3/uL (0.0-0.1); Basophils % 0.3 %; Eosinophils # 0.2 10^3/uL (0.0-0.8); Eosinophils % 0.9 %; Hematocrit 29.5 % (37.0-47.0); Hemoglobin 9.1 g/dL (11.5-15.3); Lymphocytes # 3.9 10^3/uL (0.8-4.8); Mean Corpuscular HGB Conc 30.8 g/dL (30.0-36.0); Mean Corpuscular Hemoglobin 28.4 pg (28.0-34.0); Mean Corpuscular Volume 92.2 fL (81-99); Mean Platelet Volume 9.3 fL (7.4-10.4); Monocytes # 0.9 10^3/uL (0.2-0.9); Neutrophils # 12.52 10^3/uL (1.8-7.7); Neutrophils % 70.9 %; Nucleated Red Blood Cells % 0 %; Platelet Count 382 10^3/cmm (130-400); Red Cell Distribution Width 19.3 % (12.1-15.1); White Blood Count 17.7 10^3/uL (4.0-10.0)
[2020-05-22 08:21] LABS: Partial Thromboplastin Time 105.8 SECONDS (23.9-36.7)
[2020-05-22 08:24] LABS: Procalcitonin 0.37 ng/mL (0-0.5)
[2020-05-22 08:35] LABS: Alanine Aminotransferase 16 U/L (0-33); Albumin Level 2.6 g/dL (3.5-5.2); Alkaline Phosphatase 144 IU/L (35-105); Anion Gap 18.1 (5-19); Aspartate Amino Transferase 24 U/L (0-32); Blood Urea Nitrogen 8 mg/dL (8-23); C Reactive Protein 62.2 mg/L (0.0-4.9); Calcium 7.6 mg/dL (8.5-10.5); Carbon Dioxide 19 mmol/L (22-29); Chloride 107 mmol/L (98-107); Globulin 3.3 g/dL (1.3-4.6); Glucose 122 mg/dL (65-115); Magnesium 1.5 mg/dL (1.7-2.3); Osmolality Calculated 287 mOsm/kg (285-295); Potassium 4.1 mmol/L (3.5-5.1); Sodium 140 mmol/L (136-145); Total Bilirubin 0.5 mg/dL (0.15-1.2); Total Protein 5.9 g/dL (6.6-8.7)
[2020-05-22] MEDS: metoprolol tartrate 50 mg Tablet PO ×2 (09:27→17:37)
[2020-05-22] MEDS: sennosides-docusate Tablet 1 TAB PO (09:27)
[2020-05-22] MEDS: atorvastatin 40 mg Tablet PO (09:27)
[2020-05-22] MEDS: levothyroxine 125 mcg Tablet PO (09:27)
[2020-05-22] MEDS: multivitamin therapeutic Tablet 1 TAB PO (09:28)
[2020-05-22] MEDS: aspirin 81 mg EC Tablet PO (09:28)
--- NOTE | 2020-05-22 09:39 | PC.NURSE ---
Aspirin and lipitor pills fell to the floor during administration. Additional dose of each removed from pyxis. Patient takes pills in apple sauce, one pill at a time.
[2020-05-22 10:51] LABS: Glucose Point of Care 109 mg/dL (70-110)
--- NOTE | 2020-05-22 12:06 | PC.CHAP ---
Pastoral Care Encounter/Spiritual Assessment Type of Contact [] Declined custodial laborer visit [] Patient/Family/Request visit [] Outpatient visit [] Follow-up visit [] Physician referral [] Code/Alert [] Routine visit [] Staff referral [] Actively dying [] Patient sleeping [] Family support [] [] Out of room [] Palliative care [] [] Receiving care in room [] Pre-surgical visit [] Trauma [] Long length of stay [] ICU visit [xx] Other: Contact precautions have been put into place. Relational/Emotional Strength [] Patient feels connected with others/family/visitors/staff [] Distress [] Loneliness/isolation [] Abandonment Spirituality of Patient [] Person of Kaila [] Attends Mormon of their [place]a [] Believes in Prayer [] Reads Bible or Yazdanism materials [] There are Spiritual issues to be addressed [place] Interventions [] Prayer [] Active listening [] Non-anxious presence [] Spiritual/emotional support [] Crisis/trauma care [] Spiritual counseling [] Bereavement support [] Provided bereavement packet [] Provided Bible/devotional materials [] Provided toy/stuffed animal, coloring book to patient or family member [] Provided Communion [] Anointing/[place] [] Salvation [] Completed spiritual assessment [] Other: Impact on Illness or Injury [] Angry [] Fearful [] Anxious [] Often cries [] Exhaustion [] Unable to work [] Unable to attend gnosticism [] Unable to walk/stand [] Unable to read [] Unable to drive [] Unable to eat/drink [] Unable to sleep [] Unable to be with family [] Patient intubated [] Other: Summary No visit as contact precautions have been put into place. Time spent with patient [place] Trisha Marcelo
--- NOTE | 2020-05-22 13:00 | PC.NURSE ---
Dressing change. Removed rolled gauze and non stick dressings. Serosanguinous drainage from open wounds on left foot and posterior lower left leg. Dressing on anterior lower left leg dry and intact. Dressing on anterior left foot also dry. New dressings applied with triple antibiotic ointment that was approved by Dr. Mcknight during early rounds. 7 non-adherent dressings used followed by 2 rolled gauze. Patient c/o pain in lower left when changing dressing or moving leg. Patient rolled side to side to change all linens. 2 areas on patient's buttocks noted for redness and optifoam dressing applied. Patient became short of breath with bed in a flat position for changing of linens and audible upper ariway wheezes heard. After completion of linen change patient returned to supine position with HOD up 45 degrees. Patient's breathing immediately became less labored and less audible.
--- NOTE | 2020-05-22 13:30 | PC.NURSE ---
Patient's son Judah called to room 105 while we were changing patient's dressings and linens. He spoke with patient on the phone. On return to nurse's station was informed patient's son, Judah had called the supervisor hospitality house with complaints. I placed a call to Judah at his contact phone number and spoke with him regarding patient's current neurological status. I let Judah know that I had taken care of his mother during her last admission and that her neuro status was unchanged from what I witnessed previously; that she was conversational and that she did not like what was offered at lunch and we had found her alternatives. The charge nurse contacted Dr. Mcknight and let him know the son would like an update from the physician.
--- NOTE | 2020-05-22 16:41 | P.PN_ITS ---
Subjective Subjective: Interval history: Patient was seen this morning, she is in the cardiac stepdown unit, heart rates at between 90s to 110s, atrial fibrillation, no bloody or black stools, hemoglobin is 9.1, left upper and left lower extremity, weakness is about 4-5, which is her baseline, no slurring of her speech, no facial droop, no complaints of chest pain, no shortness of breath, her troponins were elevated overnight, no acute EKG events, no telemetry events, no complaints of chest pain Vitals/I&O/Wt Last Vital Signs Temp 98.8 F 05/22/20 16:00 Pulse 111 H 05/22/20 16:00 Resp 23 H 05/22/20 16:00 BP 107/72 05/22/20 16:00 Pulse Ox 97 05/22/20 16:00 05/22/20 05/22/20 05/22/20 06:59 14:59 22:59 Intake Total 1145.483 / 2145.483 920 / 920 Output Total 100 / 200 Balance 1045.483 / 1945.483 920 / 920 Weight last 48 hrs Weight 119.522 kg Weight 117.526 kg Physical Exam Const: COMMON NORMALS: no acute distress, patient oriented x3 and alert GENERAL APPEARANCE: cooperative and comfortable ORIENTATION/CONSCIOUSNESS: Yes oriented to person, Yes oriented to place and Yes oriented to time HENMT: COMMON NORMALS: normocephalic HEAD & SCALP: normocephalic Eye: COMMON NORMALS: Equal, round and reactive pupils present and EOMs intact bilaterally PUPIL: Yes Equal, round and reactive pupils present Neck/C-Spine: COMMON NORMALS: full ROM, no lymphadenopathy, no JVD and Thyroid normal THYROID: Thyroid normal Lymph: LYMPHATIC: no lymphadenopathy noted Resp: COMMON NORMALS: normal respiratory effort, No retractions, No use of accessory muscles and clear to auscultation bilaterally AUSCULTATION: clear to auscultation bilaterally Cardio: COMMON NORMALS: no JVD, regular rate, regular rhythm, S1 normal heart sound present, S2 normal heart sound present, No gallops present (Cardio), No clicks present (Cardio) and No murmurs present (Cardio) RATE: regular rate RHYTHM: regular rhythm HEART SOUNDS: S1 normal heart sound present and S2 normal heart sound present GI: COMMON NORMALS: Normal to inspection, nondistended, normoactive bowel sounds present, Soft to palpation, non-tender and No hepatosplenomegaly present PALPATION: Yes Soft to palpation and Yes No hepatosplenomegaly present Extremity: COMMON NORMALS: normal to inspection, full ROM and no pedal edema Neuro: COMMON NORMALS: patient oriented x3 and CN's II-XII intact bilaterally SENSORIUM/ORIENTATION: Yes alert, Yes oriented to person, Yes oriented to place and Yes oriented to time COORDINATION/BALANCE: [id number] test normal SPEECH: speech normal COORDINATION: [id number] test normal OTHER: Strength right upper extremity 5 out of 5, strength left upper extremity 4 out of 5, strength right lower extremity, 5 out of 5, strength left lower extremity 4-5 Pupils bilaterally reactive to light, no significant facial, no slurring of her speech, she does tend to favor the left side Psych: COMMON NORMALS: mental status grossly normal, Normal thought process present and cooperative THOUGHT PROCESS: Normal thought process present Data : 05/22/20 07:34 05/22/20 07:34 Micro: Microbiology 05/21/20 14:05 Blood Culture - Preliminary Blood NEGATIVE TO DATE 05/21/20 14:00 Blood Culture - Preliminary Blood NEGATIVE TO DATE A&P Assessment and plan (1) CVA (cerebral vascular accident): -Has a previous history of CVA, with residual left upper and lower extremity weakness, paresthesias, and leans to the left, Annika lift dependent, chronic Patino -At 5 AM, had concerns for left-sided gaze palsy, a aphasia, but was asymptomatic when she arrived in the emergency room, not a TPA candidate, CT head no intracranial bleed -NIH stroke scale 2, but hard to assess as she has chronic left upper lobe tremor weakness, I do not know what her baseline is -Has a history of atrial fibrillation, not on anticoagulation for what I presume to be secondary to anemia, transfusion dependent anemia, no known history of GI bleeds, or falls -In the ER she was found to have atrial fibrillation, heart rates in the high 120s Plan: -Admit to the cardiac stepdown unit -Aspirin, statin -She received therapeutic Lovenox in the ER, start Heparin drip 12 hours after, monitor hemoglobin closely, monitor for bloody or black stools -We will stop IV fluids -Neurochecks, aspiration precautions -PT OT -Manage atrial fibrillation with metoprolol 50 mg twice daily -Allow for permissive hypertension for the next 24 hours -Bilateral carotid artery ultrasounds no no significant artery stenosis -Cardiac echocardiogram pending Status: Acute Qualifiers: CVA mechanism: unspecified Qualified Code(s): I63.9 - Cerebral infarction, unspecified (2) Chronic kidney disease, stage 3: Creatinine 1.0 Status: Chronic (3) Acute on chronic anemia: -History of transfusions on the last hospital admission secondary to anemia, her Hemoccult stool was positive -We will continue to monitor hemoglobin on heparin drip Status: Acute (4) Bacteremia: -History of VRE bacteremia, with negative transesophageal echocardiogram, respiratory cultures positive for MRSA, urine cultures positive for ESBL E. coli blood cultures negative for 4 hours - -For now continue Zyvox Status: Acute (5) Atrial fibrillation: -Anticoagulate with heparin, metoprolol for rate control Status: Acute Qualifiers: Atrial fibrillation type: longstanding persistent Qualified Code(s): I 48.11 - Longstanding persistent atrial fibrillation (6) Sleep apnea: Status: Acute (7) Vascular dementia: Status: Chronic Qualifiers: Dementia behavioral disturbance: with behavioral disturbance Qualified Code(s): F01.51 - Vascular dementia with behavioral disturbance (8) Diabetic nephropathy: Status: Chronic Qualifiers: Diabetes mellitus type: type 2 Qualified Code(s): E11.21 - Type 2 diabetes mellitus with diabetic nephropathy (9) Type 2 diabetes mellitus: -Low-dose sliding scale Status: Chronic Qualifiers: Diabetes mellitus complication status: with other specified complication Diabetes mellitus clothes wringer insulin use: without clothes wringer use Qualified Code(s): E11.69 - Type 2 diabetes mellitus with other specified complication (10) Leg ulcer, left: -Left heel, necrotic debris, status post debridement by Dr. Preciado, postop day 0 -Continue wound dressing, continue Zyvox Status: Acute (11) Hypertension: Status: Chronic Qualifiers: Hypertension type: essential hypertension Qualified Code(s): I10 - Essential (primary) hypertension (12) COPD (chronic obstructive pulmonary disease): Status: Chronic Qualifiers: COPD type: emphysema Emphysema type: unspecified Qualified Code(s): J43.9 - Emphysema, unspecified (13) Elevated troponin: Status: Acute (14) NSTEMI (non-ST elevated myocardial infarction): -No complaints of chest pain, shortness of breath -Baseline troponin 84, 120-minute 111.2, delta of 27.2 -EKG atrial fibrillation, no acute ST-T wave changes -EF on last echocardiogram in April 2020, showed grossly normal ejection fraction -Continue aspirin, statin, telemetry monitoring, serial EKGs, serial troponins -Likely supply demand ischemia from atrial fibrillation cardiology consult, likely will need an outpatient stress test Status: Acute (15) Leukocytosis: -UA negative for UTI, chest x-ray negative for pneumonia, bilateral hernandez cellulitis, with left hernandez ulcers, healing well,, on appropriate antibiotics, Zyvox -We will continue to monitor, monitor for fevers, monitor hemodynamics Status: Acute Qualifiers: Leukocytosis type: unspecified Qualified Code(s): D72.829 - Elevated white blood cell count, unspecified Attestations Medical Necessity Statement*: Requires hospitalization, inpatient, greater than 2-minute, for stroke, atrial fibrillation, left lower extremity ulcers Coding Level of Care Code Acute [employer] [facility] for [facility] Fwd Diagnoses CVA (cerebral vascular accident) I63.9 CVA mechanism: unspecified Chronic kidney disease, stage 3 N18.3 Acute on chronic anemia D64.9 Bacteremia R78.81 Atrial fibrillation I48.11 Atrial fibrillation type: longstanding persistent Sleep apnea G47.30 Vascular dementia F01.51 Dementia behavioral disturbance: with behavioral disturbance Diabetic nephropathy E11.21 Diabetes mellitus type: type 2 Type 2 diabetes mellitus E11.69 Diabetes mellitus complication status: with other specified complication Diabetes mellitus clothes wringer insulin use: without clothes wringer use Leg ulcer, left L97.929 Hypertension I10 Hypertension type: essential hypertension COPD (chronic obstructive pulmonary disease) J43.9 COPD type: emphysema Emphysema type: unspecified Elevated troponin R79.89 NSTEMI (non-ST elevated myocardial infarction) I21.4 Leukocytosis D72.829 Leukocytosis type: unspecified
--- NOTE | 2020-05-22 16:44 | USCV_ITS ---
Leatha Emery Age: 69 Gender: F : 1950 Exam Date: 05/22/2020 18:04 Ordering Phys: Vaibhav Mcknight MD Technologist: Lynn Hartley Exam Location: [facility] – [place], [place] Indication: Recheck since pt still SOB BP: 107 / 72 HR: 100 Rhythm: Sinus Technical Quality: Adequate MEASUREMENTS (Male / Female) Normal Values 2D ECHO LV Diastolic Diameter PLAX 4.3 cm 4.2 - 5.9 / 3.9 - 5.3 cm LV Systolic Diameter PLAX 4.4 cm LV Chamber Size 4.0 cm IVS Diastolic Thickness 1.4 cm 0.6 - 1.0 / 0.6 - 0.9 cm IVS Systolic Thickness 1.3 cm LVPW Diastolic Thickness 1.1 cm 0.6 - 1.0 / 0.6 - 0.9 cm LVPW Systolic Thickness 1.6 cm RV Chamber Size 3.8 cm LVOT Diameter 2.0 cm LV Ejection Fraction 2D Teich 5.0 % LA Diameter 4.9 cm LA Width 3.7 cm LA Height 6.3 cm RA Width 5.8 cm RA Height 7.3 cm Aorta at Sinotubular Diameter 3.1 cm M-MODE LV Diastolic Diameter MM 5.2 cm 4.2 - 5.9 / 3.9 - 5.3 cm LV Systolic Diameter MM 4.1 cm LV Ejection Fraction MM Teich 42.4 % IVS Diastolic Thickness MM 0.8 cm 0.6 - 1.0 / 0.6 - 0.9 cm IVS Systolic Thickness MM 1.1 cm LVPW Diastolic Thickness MM 1.4 cm 0.6 - 1.0 / 0.6 - 0.9 cm LVPW Systolic Thickness MM 1.8 cm RV Diastolic Diameter MM 1.5 cm Aortic Annulus Diameter 3.1 cm LA Ao Ratio MM 1.6 MV E Point Septal Separation 0.5 cm DOPPLER TR Peak Velocity 229.6 cm/s TR Peak Gradient 21.1 mmHg TR Mean Velocity 186.3 cm/s TR Mean Gradient 14.9 mmHg TR Velocity Time Integral 66.8 cm Right Atrial Pressure 15.0 mmHg Pulmonary Artery Systolic Pressu 36.1 mmHg FINDINGS Left Ventricle Severe hypokinesia of the mid and apical septum, anteroseptum and apical segments. LV ejection fraction around 30 to 35% Right Ventricle Mildly increased right ventricular size. Normal RV ejection fraction Right Atrium Moderately increased right atrial size. Left Atrium Moderately increased left atrial size. Mitral Valve Thickened mitral valve. Aortic Valve Thickened aortic valve. Tricuspid Valve Mild tricuspid valve regurgitation. Estimated pulmonary artery peak systolic pressure 36 mmHg Pulmonic Valve Pulmonic valve not well visualized. Pericardium No pericardial effusion. Aorta Normal aortic annulus size. CONCLUSIONS Severe hypokinesia of the mid and apical septum, anteroseptum and apical segments. LV ejection fraction around 30 to 35%. Moderate biatrial enlargement Mildly dilated right ventricle with normal ejection fraction. Mild tricuspid valve regurgitation. Thickened aortic and mitral valves. Estimated pulmonary artery peak systolic pressure 36 mmHg Compared to study from 05/11/2020 the wall motion normalities appears to be new. The features may suggest a Takotsubo syndrome. Dr Ruddy John MD FACC (Electronically Signed) Final Date: 22 May 2020 19:37 S
[2020-05-22 16:51] LABS: Partial Thromboplastin Time 233.7 SECONDS (23.9-36.7)
[2020-05-22 16:56] LABS: Glucose Point of Care 122 mg/dL (70-110)
[2020-05-22] MEDS: ARIPiprazole 10 mg Tablet 5 MG PO (17:37)
--- NOTE | 2020-05-22 17:43 | PC.NURSE ---
Opened and scanned the medication Aripiprazole, went to administer to the patient and she refused to take the medication.
--- NOTE | 2020-05-22 18:08 | P.PN_ITS ---
Subjective Subjective: Interval history: She feels well today. No chest pain or SOB Vitals/I&O/Wt Last Vital Signs Temp 98.8 F 05/22/20 16:00 Pulse 111 H 05/22/20 16:00 Resp 23 H 05/22/20 16:00 BP 107/72 05/22/20 16:00 Pulse Ox 97 05/22/20 16:00 05/22/20 05/22/20 05/22/20 06:59 14:59 22:59 Intake Total 1145.483 / 2145.483 920 / 920 Output Total 100 / 200 Balance 1045.483 / 1945.483 920 / 920 Weight last 48 hrs Weight 263 lb 8 oz Weight 259 lb 1.6 oz Physical Exam Const: COMMON NORMALS: no acute distress GENERAL APPEARANCE: well kempt and well hydrated NUTRITIONAL APPEARANCE: obese HENMT: COMMON NORMALS: normocephalic, atraumatic, external ears normal and Normal external nose present HEAD & SCALP: normocephalic and atraumatic FACE & SINUS: no edema NOSE: Normal external nose present EXTERNAL EAR: Yes external ears normal Eye: COMMON NORMALS: Equal, round and reactive pupils present, EOMs intact bilaterally and no scleral icterus GENERAL EYE: appearance normal, both eyes and all related structures PUPIL: Yes Equal, round and reactive pupils present Neck/C-Spine: COMMON NORMALS: no lymphadenopathy, supple and no JVD GENERAL: Yes normal visual inspection and Yes trachea midline CAROTIDS: Yes normal carotid upstroke CERVICAL SPINE: Yes cervical ROM normal Lymph: LYMPHATIC: no lymphadenopathy noted Chest: COMMONS NORMALS: normal inspection of the chest and normal palpation of entire chest wall CHEST: Yes Symmetrical chest wall rise, No mass, No tenderness, No Surgical scars present (Chest) and No rash Resp: COMMON NORMALS: clear to auscultation bilaterally AUSCULTATION: clear to auscultation bilaterally, no crackles, no rales, no rhonchi, no wheezes and vesicular breath sounds Cardio: COMMON NORMALS: no JVD, regular rate, regular rhythm, S1 normal heart sound present, S2 normal heart sound present and Peripheral pulses 2+ throughout PALPATION: normal PMI RATE: regular rate RHYTHM: regular rhythm HEART SOUNDS: S1 normal heart sound present, S2 normal heart sound present, no click, no gallops and no murmurs BRUITS: no carotid bruits PERIPHERAL PULSES: Peripheral pulses 2+ throughout, radial pulses present, femoral pulses present, posterior tibial pulses present and dorsalis pedis present GI: COMMON NORMALS: Soft to palpation and No hepatosplenomegaly present AUSCULTATION: Yes normoactive bowel sounds PALPATION: Yes Soft to palpation, No Tenderness to palpation present (GI), No Guarding due to palpation present (GI), No Rigid due to palpation, Yes No hepatosplenomegaly present, No Pulsatile mass present and No Ascites present PERCUSSION: tympanic to percussion Extremity: GENERAL: No calf tenderness, No clubbing, No cyanosis, Yes edema and No pallor Neuro: COMMON NORMALS: CN's II-XII intact bilaterally, no focal motor deficits, no sensory deficits noted and gait normal Psych: COMMON NORMALS: Normal thought process present and speech normal APPEARANCE: Yes well kempt SPEECH: Yes normal speech MOOD & AFFECT: Yes euthymic mood THOUGHT PROCESS: Normal thought process present THOUGHT CONTENT: Yes Normal thought content present Skin: HAIR: normal NAILS: normal and no clubbing Data : 05/22/20 07:34 05/22/20 07:34 Micro: Microbiology 05/21/20 14:05 Blood Culture - Preliminary Blood NEGATIVE TO DATE 05/21/20 14:00 Blood Culture - Preliminary Blood NEGATIVE TO DATE A&P Assessment and plan (1) Elevated troponin: Type 2. EKG not very different from previous one. EKG today showed atrial fibrillation with low QRS volatge in precordial leads and poor anterior R wave progression. -Not ACS. No cornoary angiogram warranted. -She is already on ASA, statin and metoprolol. Heparin gtt for Atrial fib. -May consider stress test later in hospitalization or as an outpatient. Status: Acute (2) Atrial fibrillation: Given her h/o stroke and possible TIA this visit. -She would benefit from anticoagulation. 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 due to underlying condition: Status: Acute (4) Bilateral leg ulcer: Status: Chronic Qualifiers: Non-pressure ulcer stage: unspecified non-pressure ulcer stage Qualified Code(s): L97.919 - Non-pressure chronic ulcer of unspecified part of right lower leg with unspecified severity; L97.929 - Non-pressure chronic ulcer of unspecified part of left lower leg with unspecified severity (5) CVA (cerebral vascular accident): Status: Acute Qualifiers: CVA mechanism: unspecified Qualified Code(s): I63.9 - Cerebral infarction, unspecified (6) Leukocytosis: Status: Acute Qualifiers: Leukocytosis type: unspecified Qualified Code(s): D72.829 - Elevated white blood cell count, unspecified (7) Type 2 diabetes mellitus: Status: Chronic Qualifiers: Diabetes mellitus complication status: with other specified complication Diabetes mellitus care home insulin use: without tank terminal gauger use Qualified Code(s): E11.69 - Type 2 diabetes mellitus with other specified complication Additional A&P Information anemia h/o DYLANE amanda Thank you for allowing me to participate in patient's care. Please feel free to call with questions or concerns. Attestations Medical Necessity Statement*: As per primary team. 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
[2020-05-22] MEDS: oxyCODONE-APAP 5-325 mg Tablet 1 TAB PO (19:42)
[2020-05-22 20:14] LABS: Glucose Point of Care 112 mg/dL (70-110)
--- NOTE | 2020-05-22 20:36 | PC.NURSE ---
Patient was offered a bed bath. Patient states I'm awful tired tonight, I might want one tomorrow.
--- NOTE | 2020-05-22 21:42 | PC.NURSE ---
Patient does not have any complaints at this time. Patient is able to answer correctly to person, place, time, and situation, however she seems confused at times. Will monitor. Bed alarm is set and call light is within reach.
[2020-05-22 22:07] LABS: Partial Thromboplastin Time 36.8 SECONDS (23.9-36.7)
--- NOTE | 2020-05-22 22:41 | PC.NURSE ---
PTT is still pending at this time. Lab notified.
--- NOTE | 2020-05-22 23:00 | PC.NURSE ---
Dr. Mittal notified of patient's PTT coming back as 36.8 after Heparin drip was shut off due to critically high PTT during previous shift. Ordered to restart heparin drip at 30 ml/hr with no bolus and follow protocol after that.
[2020-05-22] MEDS: heparin drip 25,000 UNIT/500 ML PREMIX 30 UNIT IV (23:06)
[2020-05-23] VITALS (8 sets, daily range): BP systolic 89–151; BP diastolic 50–88; PULSE 78–143; RESP 16–24; TEMP 36.2–36.8; O2SAT 92–97
[2020-05-23] MEDS: linezolid 600 mg Tablet PO ×2 (00:07→14:01)
[2020-05-23] MEDS: oxyCODONE-APAP 5-325 mg Tablet 1 TAB PO ×3 (00:09→21:47)
--- NOTE | 2020-05-23 04:48 | PC.NURSE ---
Patient does not have any complaints at this time. Will monitor.
[2020-05-23 04:51] LABS: Basophils # 0.1 10^3/uL (0.0-0.1); Basophils % 0.4 %; Eosinophils # 0.4 10^3/uL (0.0-0.8); Hematocrit 27.5 % (37.0-47.0); Hemoglobin 8.8 g/dL (11.5-15.3); Lymphocytes % 28.9 %; Mean Corpuscular Hemoglobin 28.9 pg (28.0-34.0); Mean Corpuscular Volume 90.5 fL (81-99); Monocytes # 0.9 10^3/uL (0.2-0.9); Monocytes % 6.3 %; Neutrophils # 8.38 10^3/uL (1.8-7.7); Nucleated Red Blood Cells % 0 %; Platelet Count 250 10^3/cmm (130-400); Red Blood Count 3.04 10^6/uL (4.1-5.3); Red Cell Distribution Width 19.1 % (12.1-15.1); White Blood Count 13.8 10^3/uL (4.0-10.0)
[2020-05-23 05:12] LABS: INR 1.15 (0.8-1.2)
[2020-05-23 05:13] LABS: Partial Thromboplastin Time 25.5 SECONDS (23.9-36.7)
[2020-05-23 05:15] LABS: Alanine Aminotransferase 20 U/L (0-33); Albumin Level 2.4 g/dL (3.5-5.2); Alkaline Phosphatase 136 IU/L (35-105); Blood Urea Nitrogen 11 mg/dL (8-23); C Reactive Protein 126.8 mg/L (0.0-4.9); Calcium 7.3 mg/dL (8.5-10.5); Carbon Dioxide 16 mmol/L (22-29); Chloride 108 mmol/L (98-107); Globulin 2.8 g/dL (1.3-4.6); Glucose 94 mg/dL (65-115); Magnesium 1.4 mg/dL (1.7-2.3); Osmolality Calculated 284 mOsm/kg (285-295); Phosphorus 3.6 mg/dL (2.5-4.5); Sodium 139 mmol/L (136-145); Total Bilirubin 0.5 mg/dL (0.15-1.2); Total Protein 5.2 g/dL (6.6-8.7)
[2020-05-23 05:16] LABS: Slide Review Slide Review Perform
[2020-05-23 05:27] LABS: Anion Gap 19.3 (5-19); Aspartate Amino Transferase 34 U/L (0-32); Potassium 4.3 mmol/L (3.5-5.1)
--- NOTE | 2020-05-23 05:42 | PC.NURSE ---
Patient pulled her IV before lab jordin her PTT for Heparin drip. Dr. Mittal notified. New IV will be started and Heparin drip will be started at same rate. Ordered to redraw PTT in 4 hours after starting drip back and follow protocol from there.
[2020-05-23 06:00] LABS: Procalcitonin 0.66 ng/mL (0-0.5)
--- NOTE | 2020-05-23 06:00 | PC.NURSE ---
Catheter was intact on IV that was accidentally pulled out of patient's left AC by patient. New IV started in right AC on first attempt with 20 gauge. Will monitor.
[2020-05-23 06:51] LABS: Glucose Point of Care 85 mg/dL (70-110)
[2020-05-23] MEDS: FUROsemide 10 mg/mL SDV 4mL 40 MG IVP (10:21)
[2020-05-23] MEDS: aspirin 81 mg EC Tablet PO (10:21)
[2020-05-23] MEDS: ARIPiprazole 10 mg Tablet 5 MG PO ×2 (10:21→18:53)
[2020-05-23] MEDS: sennosides-docusate Tablet 1 TAB PO (10:22)
[2020-05-23] MEDS: multivitamin therapeutic Tablet 1 TAB PO (10:22)
[2020-05-23] MEDS: venlafaxine ER (24HR) 150 mg Capsule PO (10:23)
[2020-05-23] MEDS: atorvastatin 40 mg Tablet PO (10:23)
[2020-05-23] MEDS: levothyroxine 125 mcg Tablet PO (10:23)
[2020-05-23] MEDS: metoprolol tartrate 50 mg Tablet PO ×2 (10:24→18:54)
--- NOTE | 2020-05-23 11:28 | PM.PN ---
Subjective Subjective: Interval history: Cardiology coverage Patient is admitted to hospital with features of a CVA. This patient is known to have chronic atrial fibrillation, type 2 diabetes, diabetic foot ulcers and dyslipidemia. Her echocardiogram from yesterday revealed an LV ejection fraction of around 30 to 35%. She had a severe diffuse hypokinesia of the left ventricular apical segments with mild apical dilatation. Features are suggestive of Takotsubo syndrome. She has no fever or chills. No cough. She has a baseline shortness of breath with activities. No orthopnea or PND. Medications: Reviewed: Yes Medication Review Details: Current Medications Acetaminophen (Tylenol) 650 mg PO QID PRN PRN Reason: Pain Last Admin: 05/21/20 14:44 Dose: 650 mg Documented by: Aripiprazole (Abilify) 5 mg PO BID [facility] Last Admin: 05/23/20 10:21 Dose: 5 mg Documented by: Aspirin (Aspirin Ec) 81 mg PO DAILY [facility] Last Admin: 05/23/20 10:21 Dose: 81 mg Documented by: Atorvastatin Calcium (Lipitor) 40 mg PO DAILY [facility] Last Admin: 05/23/20 10:23 Dose: 40 mg Documented by: Dextrose (D50w) 25 ml IVP ONCE PRN; Protocol PRN Reason: hypoglycemia protocol Dextrose (D50w) 50 ml IVP PRN PRN; Protocol PRN Reason: hypoglycemia protocol Glucagon (Glucagen) 1 mg IM ONCE PRN; Protocol PRN Reason: Adult Acute Hypoglycemia Prot. Heparin Sodium (Beef Lung) (Heparin) 0 unit IV PRN PRN; Protocol PRN Reason: Heparin weight-base protocol Last Admin: 05/21/20 20:18 Dose: 6,000 unit Documented by: Heparin Sodium/Sodium Chloride (Heparin Drip) 25,000 unit in 500 mls @ 0 mls/hr IV .Q0M [facility]; Protocol Last Admin: 05/22/20 23:06 Dose: 12.76 unit/kg/hr, 30 mls/hr Documented by: Dextrose (D5w) 500 mls @ 100 mls/hr IV ONCE PRN; Protocol PRN Reason: Adult Acute Hypoglycemia Prot Insulin Aspart (Novolog) 0 unit SUBCUT TIDWM [facility]; Protocol Last Admin: 05/23/20 07:55 Dose: Not Given Documented by: Levothyroxine Sodium (Synthroid) 125 mcg PO DAILY [facility] Last Admin: 05/23/20 10:23 Dose: 125 mcg Documented by: Linezolid (Zyvox Tablet) 600 mg PO Q12H [facility]; Protocol Last Admin: 05/23/20 00:07 Dose: 600 mg Documented by: Magnesium Hydroxide (Milk Of Magnesia) 30 ml PO DAILY PRN PRN Reason: Constipation Metoprolol Tartrate (Lopressor) 50 mg PO BID [facility] Last Admin: 05/23/20 10:24 Dose: 50 mg Documented by: Multivitamins Therapeutic (Multivitamin Tab) 1 tab PO DAILY [facility] Last Admin: 05/23/20 10:22 Dose: 1 tab Documented by: Neomycin/Polymyxin/Bacitracin (Neosporin Oint Tube) 1 applic TOPICAL BID PRN PRN Reason: with dressing changes Last Admin: 05/21/20 15:58 Dose: 1 applic Documented by: Non-Formulary Medication (Fluticasone Furoate-Vilanterol [Breo Ellipta]) 1 inh INHALATION DAILY [facility] Ondansetron HCl (Zofran) 4 mg PO TID PRN PRN Reason: Nausea Last Admin: 05/21/20 16:34 Dose: 4 mg Documented by: Oxycodone/Acetaminophen (Percocet 5-325 Mg) 1 tab PO Q4H PRN PRN Reason: Pain Last Admin: 05/23/20 00:09 Dose: 1 tab Documented by: Senna/Docusate Sodium (Senna-S) 1 tab PO DAILY [facility] Last Admin: 05/23/20 10:22 Dose: 1 tab Documented by: Venlafaxine HCl (Effexor Xr) 150 mg PO DAILY [facility] Last Admin: 05/23/20 10:23 Dose: 150 mg Documented by: Vitals/I&O/Wt Last Vital Signs Temp 97.6 F 05/23/20 07:37 Pulse 143 H 05/23/20 07:37 Resp 19 H 05/23/20 07:37 BP 104/81 05/23/20 07:37 Pulse Ox 96 05/23/20 07:37 05/22/20 05/23/20 05/23/20 22:59 06:59 14:59 Intake Total 62 / 982 Output Total 150 / 150 Balance -88 / 832 Weight last 48 hrs Weight 262 lb 8 oz Weight 263 lb 8 oz Physical Exam Narrative: EXAM NARRATIVE: GENERAL: The patient is alert and oriented times three. Not in any acute distress. HEENT: Mild pallor. No icterus or lymphadenopathy.Oral cavity: There are no mucous membrane lesions. NECK: Trachea appears to be central. No masses noted. No JVD or thyromegaly appreciated. RESPIRATORY: Chest is symmetrical. No intercostals muscle retraction or any accessory muscle activation. There is no chest wall tenderness. Breath sounds are heard bilaterally. No rales or rhonchi heard. No evidence of any consolidation. BREASTS: Deferred. HEART: The heart sounds are normal. No S3 or S4. No significant murmurs. No pericardial rub ABDOMEN: No vessel pulsations or distention. No tenderness. No organomegaly appreciated. Bowel sounds are normally heard. : Deferred. RECTAL: Deferred. LYMPHATIC: No lymphadenopathy noted in the neck or groin. EXTREMITIES: 2+ edema both lower extremities. Features of bilateral cellulitis and nonhealing ulcers on the dorsum of the left foot. MUSCULOSKELETAL: No acute joint deformities or swelling SKIN: There are no significant rashes or ecchymosis NEUROPSYCHIATRIC: The patient is alert and oriented x3. Appears to be in a good mood. No tremors or rigidity noted. Data : 05/23/20 04:14 05/23/20 04:14 Other Labs: Laboratory Last Values WBC 13.8 10^3/uL (4.0-10.0) H 05/23/20 04:14 RBC 3.04 10^6/uL (4.1-5.3) L 05/23/20 04:14 Hgb 8.8 g/dL (11.5-15.3) L 05/23/20 04:14 Hct 27.5 % (37.0-47.0) L 05/23/20 04:14 MCV 90.5 fL (81-99) 05/23/20 04:14 MCH 28.9 pg (28.0-34.0) 05/23/20 04:14 MCHC 32.0 g/dL (30.0-36.0) 05/23/20 04:14 RDW 19.1 % (12.1-15.1) H 05/23/20 04:14 Plt Count 250 10^3/cmm (130-400) 05/23/20 04:14 MPV 10.0 fL (7.4-10.4) 05/23/20 04:14 Neut % (Auto) 61.0 % 05/23/20 04:14 Lymph % (Auto) 28.9 % 05/23/20 04:14 Dubois % (Auto) 6.3 % 05/23/20 04:14 Eos % (Auto) 3.0 % 05/23/20 04:14 Baso % (Auto) 0.4 % 05/23/20 04:14 Neut # (Auto) 8.38 10^3/uL (1.8-7.7) H 05/23/20 04:14 Lymph # (Auto) 4.0 10^3/uL (0.8-4.8) 05/23/20 04:14 Dubois # (Auto) 0.9 10^3/uL (0.2-0.9) 05/23/20 04:14 Eos # (Auto) 0.4 10^3/uL (0.0-0.8) 05/23/20 04:14 Baso # (Auto) 0.1 10^3/uL (0.0-0.1) 05/23/20 04:14 Nucleated RBC % (auto) 0 % 05/23/20 04:14 Nucleated RBCs # 0.0 /100WBC 05/23/20 04:14 ESR 57 mm/hr (0-15) H 05/21/20 05:31 PT 15.00 SECONDS (12.1-14.9) H 05/23/20 04:14 INR 1.15 (0.8-1.2) 05/23/20 04:14 APTT 25.5 SECONDS (23.9-36.7) 05/23/20 04:14 Sodium 139 mmol/L (136-145) 05/23/20 04:14 Potassium 4.3 mmol/L (3.5-5.1) 05/23/20 04:14 Chloride 108 mmol/L (98-107) H 05/23/20 04:14 Carbon Dioxide 16 mmol/L (22-29) L 05/23/20 04:14 Anion Gap 19.3 (5-19) H 05/23/20 04:14 BUN 11 mg/dL (8-23) 05/23/20 04:14 Creatinine 1.3 mg/dL (0.5-0.9) H 05/23/20 04:14 GFR Calculation Not Reportable 05/23/20 04:14 Glucose 94 mg/dL (65-115) 05/23/20 04:14 POC Glucose 85 mg/dL (70-110) 05/23/20 06:33 Estimat Average Glucose 105 05/21/20 05:31 Hemoglobin A1c 5.3 % (4.0-6.0) 05/21/20 05:31 Calculated Osmolality 284 mOsm/kg (285-295) L 05/23/20 04:14 Lactic Acid 3.3 mmol/L (0.5-2.2) H 05/21/20 07:45 Lactic Acid (Sepsis) 2.3 mmol/L (0.5-2.2) H 05/21/20 12:03 Calcium 7.3 mg/dL (8.5-10.5) L 05/23/20 04:14 Phosphorus 3.6 mg/dL (2.5-4.5) 05/23/20 04:14 Magnesium 1.4 mg/dL (1.7-2.3) L 05/23/20 04:14 Total Bilirubin 0.5 mg/dL (0.15-1.2) 05/23/20 04:14 AST 34 U/L (0-32) H 05/23/20 04:14 ALT 20 U/L (0-33) 05/23/20 04:14 Alkaline Phosphatase 136 IU/L (35-105) H 05/23/20 04:14 Troponin T Gen 5 ng/L 168 ng/L (0-10) H* 05/21/20 17:00 Troponin T Baseline 84 ng/L (0-10) H 05/21/20 05:31 Troponin T 120 Minute 111.2 ng/L (0-10) H 05/21/20 07:45 Delta Troponin T 27.2 ABS# (0-10) H* 05/21/20 07:45 Troponin T Hi Sens 6Hr 145.2 ng/L (0-10) H 05/21/20 12:03 Troponin T Hi Sens 6Hr Delta 61.2 ng/L (0-12) H* 05/21/20 12:03 C-Reactive Protein 126.8 mg/L (0.0-4.9) H 05/23/20 04:14 NT-Pro-B Natriuret Pep 7130 pg/mL (0-125) H 05/21/20 07:45 Total Protein 5.2 g/dL (6.6-8.7) L 05/23/20 04:14 Albumin 2.4 g/dL (3.5-5.2) L 05/23/20 04:14 Globulin 2.8 g/dL (1.3-4.6) 05/23/20 04:14 Triglycerides 126 mg/dL (0-150) 05/21/20 05:31 Cholesterol 92 mg/dL (0-200) 05/21/20 05:31 LDL Cholesterol, Calc 24 mg/dL (50-129) L 05/21/20 05:31 HDL Cholesterol 43 mg/dL (60-100) L 05/21/20 05:31 LDL/HDL Ratio 0.56 RATIO (0.00-3.22) 05/21/20 05:31 Cholesterol/HDL Ratio 2.14 mg/dL (0.0-4.40) 05/21/20 05:31 Procalcitonin 0.66 ng/mL (0-0.5) H 05/23/20 04:14 Urine Color Yellow (Yellow) 05/21/20 06:40 Urine Appearance Clear (CLEAR) 05/21/20 06:40 Urine pH 5 (5-7) 05/21/20 06:40 Ur Specific [place] 1.020 (1.005-1.030) 05/21/20 06:40 Urine Protein Neg (Negative) 05/21/20 06:40 Urine Glucose (UA) Norm (Normal) 05/21/20 06:40 Urine Ketones Negative (Negative) 05/21/20 06:40 Urine Blood Neg (Negative) 05/21/20 06:40 Urine Nitrate Negative (Negative) 05/21/20 06:40 Urine Bilirubin Neg (NEGATIVE) 05/21/20 06:40 Urine Urobilinogen Norm mg/dL (Negative) 05/21/20 06:40 Ur Leukocyte Esterase Negative (Negative) 05/21/20 06:40 Micro: Microbiology 05/21/20 14:05 Blood Culture - Preliminary Blood NEGATIVE TO DATE 05/21/20 14:00 Blood Culture - Preliminary Blood NEGATIVE TO DATE A&P Assessment and plan (1) Elevated troponin level: Most likely related to type II myocardial infarction. Possibility of having underlying coronary disease cannot be excluded but my clinical suspicion may be low. Patient has a history of GI bleed. She is on Eliquis. She also is taking the aspirin. In view of her extremely poor physical condition, practically bedridden state, optimizing the medical treatment will be the plan of action. Status: Acute (2) Intermittent atrial fibrillation: Patient was started on Eliquis. At this time, it may be appropriate to stop the aspirin in view of the GI bleed. May continue on her current medications. Status: Acute (3) Nonischemic cardiomyopathy: Since the patient has no evidence of any myocardial injury, most likely this is a stress-induced cardiomyopathy associated with a CVA. Optimizing the medical treatment would be the plan of action. May continue on the current medications. Status: Acute (4) Chronic kidney disease, stage 3: The kidney function appears to be stable. Continue on the current measures. Status: Chronic (5) Chronic anemia: This needs to be closely monitored especially in view of the history of GI bleed. Would be appropriate to discontinue the aspirin and keep on the Eliquis Status: Acute Additional A&P Information Patient clinical progress on the results of the above, further management decisions will be made. Attestations Medical Necessity Statement*: Patient requires continued hospital stay for close monitoring and further management Coding Level of Care Code Acute Youth Corrections Officer for Chg Fwd Diagnoses Elevated troponin level R79.89 Intermittent atrial fibrillation I48.0 Nonischemic cardiomyopathy I42.8 Chronic kidney disease, stage 3 N18.3 Chronic anemia D64.9
[2020-05-23 11:57] LABS: Glucose Point of Care 79 mg/dL (70-110)
[2020-05-23 12:17] LABS: Partial Thromboplastin Time 51.6 SECONDS (23.9-36.7)
--- NOTE | 2020-05-23 12:31 | PC.NURSE ---
Called PTT to Dr. Mcknight. Order recived to stop heparin drip and he will order eliquis.
[2020-05-23] MEDS: apixaban 5 mg Tablet PO ×2 (14:01→18:54)
--- NOTE | 2020-05-23 14:24 | P.PN_ITS ---
Subjective Subjective: Interval history: Patient is doing well this morning, no fevers, no chills, no nausea, no vomiting, no bloody or black stools, no chest pain, shortness of breath, she has 1+ pitting edema bilaterally, heparin drip was held overnight due to high PTT, echocardiogram showed a drop in her ejection fraction down to 35%, highly suspicious for stress-induced cardiomyopathy, I discussed this with the patient, agreeable to outpatient follow-up with cardiology, will discuss with patient's son Hugo Vitals/I&O/Wt Last Vital Signs Temp 97.6 F 05/23/20 12:00 Pulse 83 05/23/20 12:00 Resp 16 05/23/20 12:00 BP 148/88 05/23/20 12:00 Pulse Ox 92 05/23/20 12:00 05/22/20 05/23/20 05/23/20 22:59 06:59 14:59 Intake Total 62 / 982 240 / 240 Output Total 150 / 150 Balance -88 / 832 240 / 240 Weight last 48 hrs Weight 119.068 kg Weight 119.522 kg Physical Exam Const: COMMON NORMALS: no acute distress, patient oriented x3 and alert GENERAL APPEARANCE: cooperative and comfortable ORIENTATION/CONSCIOUSNESS: Yes oriented to person, Yes oriented to place and Yes oriented to time Neck/C-Spine: COMMON NORMALS: full ROM, no lymphadenopathy, no JVD and Thyroid normal THYROID: Thyroid normal Lymph: LYMPHATIC: no lymphadenopathy noted Resp: COMMON NORMALS: normal respiratory effort, No retractions, No use of accessory muscles and clear to auscultation bilaterally AUSCULTATION: clear to auscultation bilaterally Cardio: COMMON NORMALS: no JVD, regular rate, regular rhythm, S1 normal heart sound present, S2 normal heart sound present, No gallops present (Cardio), No clicks present (Cardio) and No murmurs present (Cardio) RATE: regular rate RHYTHM: regular rhythm HEART SOUNDS: S1 normal heart sound present and S2 normal heart sound present GI: COMMON NORMALS: Normal to inspection, nondistended, normoactive bowel sounds present, Soft to palpation, non-tender and No hepatosplenomegaly present PALPATION: Yes Soft to palpation and Yes No hepatosplenomegaly present Extremity: COMMON NORMALS: normal to inspection, full ROM and no pedal edema Neuro: COMMON NORMALS: patient oriented x3 and CN's II-XII intact bilaterally SENSORIUM/ORIENTATION: Yes alert, Yes oriented to person, Yes oriented to place and Yes oriented to time COORDINATION/BALANCE: [id number] test normal SPEECH: speech normal COORDINATION: [id number] test normal OTHER: Strength right upper extremity 5 out of 5, strength left upper extremity 4 out of 5, strength right lower extremity, 5 out of 5, strength left lower extremity 4-5 Pupils bilaterally reactive to light, no significant facial, no slurring of her speech, she does tend to favor the left side Skin: NARRATIVE SKIN EXAM: Left hernandez, wrapped in bandage, superficial ulcers, good granulation tissue Plantar aspect of the foot, status post debridement, healing well, good granulation tissue, currently wrapped and bandaged Data : 05/23/20 04:14 05/23/20 04:14 Micro: Microbiology 05/21/20 14:05 Blood Culture - Preliminary Blood NEGATIVE TO DATE 05/21/20 14:00 Blood Culture - Preliminary Blood NEGATIVE TO DATE A&P Assessment and plan (1) CVA (cerebral vascular accident): -Has a previous history of CVA, with residual left upper and lower extremity weakness, paresthesias, and leans to the left, Annika lift dependent, chronic Patino -At 5 AM, had concerns for left-sided gaze palsy, a aphasia, but was asymptomatic when she arrived in the emergency room, not a TPA candidate, CT head no intracranial bleed -NIH stroke scale 2, but hard to assess as she has chronic left upper lobe tremor weakness, I do not know what her baseline is -Has a history of atrial fibrillation, not on anticoagulation for what I presume to be secondary to anemia, transfusion dependent anemia, no known history of GI bleeds, or falls -In the ER she was found to have atrial fibrillation, heart rates in the high 120s Plan: -Admit to the cardiac stepdown unit -Continues statin, due to risk of GI bleed and bleeding, I have stopped aspirin, continue Eliquis -Continue Eliquis -Off IV fluids -Neurochecks, aspiration precautions -PT OT -Manage atrial fibrillation with metoprolol 50 mg twice daily -Allow for permissive hypertension for the next 24 hours -Bilateral carotid artery ultrasounds no no significant artery stenosis Status: Acute Qualifiers: CVA mechanism: unspecified Qualified Code(s): I63.9 - Cerebral infarction, unspecified (2) Chronic kidney disease, stage 3: Creatinine 1.3 Status: Chronic (3) Acute on chronic anemia: -History of transfusions on the last hospital admission secondary to anemia, her Hemoccult stool was positive -We will continue to monitor hemoglobin on heparin drip Status: Acute (4) Bacteremia: -History of VRE bacteremia, with negative transesophageal echocardiogram, respiratory cultures positive for MRSA, urine cultures positive for ESBL E. coli blood cultures negative for 4 hours -For now continue Zyvox Status: Acute (5) Atrial fibrillation: -Anticoagulate with Eliquis, metoprolol for rate control Status: Acute Qualifiers: Atrial fibrillation type: longstanding persistent Qualified Code(s): I48.11 - Longstanding persistent atrial fibrillation (6) Sleep apnea: Status: Acute (7) Vascular dementia: Status: Chronic Qualifiers: Dementia behavioral disturbance: with behavioral disturbance Qualified Code(s): F01.51 - Vascular dementia with behavioral disturbance (8) Diabetic nephropathy: Status: Chronic Qualifiers: Diabetes mellitus type: type 2 Qualified Code(s): E11.21 - Type 2 diabetes mellitus with diabetic nephropathy (9) Type 2 diabetes mellitus: -Low-dose sliding scale Status: Chronic Qualifiers: Diabetes mellitus complication status: with other specified complication Diabetes mellitus group home insulin use: without group home use Qualified Code(s): E11.69 - Type 2 diabetes mellitus with other specified complication (10) Leg ulcer, left: -Left heel, necrotic debris, status post debridement by Dr. Preciado, postop day 2 -Continue wound dressing, continue Zyvox Status: Acute (11) Hypertension: Status: Chronic Qualifiers: Hypertension type: essential hypertension Qualified Code(s): I10 - Essential (primary) hypertension (12) COPD (chronic obstructive pulmonary disease): Status: Chronic Qualifiers: COPD type: emphysema Emphysema type: unspecified Qualified Code(s): J43.9 - Emphysema, unspecified (13) Elevated troponin: Status: Acute (14) NSTEMI (non-ST elevated myocardial infarction): -No complaints of chest pain, shortness of breath -Baseline troponin 84, 120-minute 111.2, delta of 27.2 -EKG atrial fibrillation, no acute ST-T wave changes -EF on last echocardiogram in April 2020, showed grossly normal ejection fraction -Continue aspirin, statin, telemetry monitoring, serial EKGs, serial troponins -Likely supply demand ischemia from atrial fibrillation -cardiology consult, likely will need an outpatient stress test Status: Acute (15) Leukocytosis: -UA negative for UTI, chest x-ray negative for pneumonia, bilateral hernandez cellulitis, with left hernandez ulcers, healing well,, on appropriate antibiotics, Zyvox -We will continue to monitor, monitor for fevers, monitor hemodynamics Status: Acute Qualifiers: Leukocytosis type: unspecified Qualified Code(s): D72.829 - Elevated white blood cell count, unspecified (16) Stress-induced cardiomyopathy: -Stress-induced cardiomyopathy likely secondary from left lower extremity cellulitis, VRE bacteremia, atrial fibrillation -Currently EF is down to 35%, will require an outpatient repeat echocardiogram versus stress test in the next few months -We will have patient follow with Dr. Liu as outpatient Status: Acute Attestations Medical Necessity Statement*: Patient requires hospitalization for left lower extremity cellulitis, stress-induced cardiomyopathy, stroke versus TIA Coding Level of Care Code Acute Geospatial Engineer for g Fwd Diagnoses CVA (cerebral vascular accident) I63.9 CVA mechanism: unspecified Chronic kidney disease, stage 3 N18.3 Acute on chronic anemia D64.9 Bacteremia R78.81 Atrial fibrillation I48.11 Atrial fibrillation type: longstanding persistent Sleep apnea G47.30 Vascular dementia F01.51 Dementia behavioral disturbance: with behavioral disturbance Diabetic nephropathy E11.21 Diabetes mellitus type: type 2 Type 2 diabetes mellitus E11.69 Diabetes mellitus complication status: with other specified complication Diabetes mellitus long term care phlebotomist insulin use: without group home use Leg ulcer, left L97.929 Hypertension I10 Hypertension type: essential hypertension COPD (chronic obstructive pulmonary disease) J43.9 COPD type: emphysema Emphysema type: unspecified Elevated troponin R79.89 NSTEMI (non-ST elevated myocardial infarction) I21.4 Leukocytosis D72.829 Leukocytosis type: unspecified Stress-induced cardiomyopathy I51.81
[2020-05-23 16:59] LABS: Glucose Point of Care 98 mg/dL (70-110)
[2020-05-23 20:35] LABS: Glucose Point of Care 133 mg/dL (70-110)
[2020-05-24] VITALS (7 sets, daily range): BP systolic 89–117; BP diastolic 60–86; PULSE 78–105; RESP 16–24; TEMP 36.2–36.6; O2SAT 92–100
[2020-05-24] MEDS: linezolid 600 mg Tablet PO ×2 (00:36→12:24)
[2020-05-24 04:55] LABS: Basophils % 0.3 %; Eosinophils # 0.5 10^3/uL (0.0-0.8); Hematocrit 29.2 % (37.0-47.0); Hemoglobin 8.9 g/dL (11.5-15.3); Lymphocytes # 3.3 10^3/uL (0.8-4.8); Lymphocytes % 28.4 %; Mean Corpuscular HGB Conc 30.5 g/dL (30.0-36.0); Mean Corpuscular Hemoglobin 28.4 pg (28.0-34.0); Mean Corpuscular Volume 93.3 fL (81-99); Mean Platelet Volume 9.6 fL (7.4-10.4); Monocytes # 0.7 10^3/uL (0.2-0.9); Monocytes % 5.5 %; Neutrophils # 7.21 10^3/uL (1.8-7.7); Neutrophils % 61.1 %; Nucleated Red Blood Cells % 0 %; Platelet Count 345 10^3/cmm (130-400); Red Blood Count 3.13 10^6/uL (4.1-5.3); Red Cell Distribution Width 19.6 % (12.1-15.1); White Blood Count 11.8 10^3/uL (4.0-10.0)
[2020-05-24] MEDS: sodium chloride 0.9% 250 ML IV (05:02)
--- NOTE | 2020-05-24 05:10 | PC.NURSE ---
Notified Dr Mittal of 25 ml real output and bp of 89/60, 250 ml bolus ordered, attempted to irrigate real with no more output, bladder scan showed 120 ml
[2020-05-24 05:17] LABS: Alanine Aminotransferase 17 U/L (0-33); Albumin Level 2.3 g/dL (3.5-5.2); Alkaline Phosphatase 137 IU/L (35-105); Blood Urea Nitrogen 17 mg/dL (8-23); C Reactive Protein 126.1 mg/L (0.0-4.9); Calcium 7.4 mg/dL (8.5-10.5); Carbon Dioxide 18 mmol/L (22-29); Chloride 106 mmol/L (98-107); Glucose 105 mg/dL (65-115); Magnesium 1.8 mg/dL (1.7-2.3); Osmolality Calculated 279 mOsm/kg (285-295); Sodium 136 mmol/L (136-145); Total Bilirubin 0.2 mg/dL (0.15-1.2); Total Protein 5.3 g/dL (6.6-8.7)
[2020-05-24 05:34] LABS: Anion Gap 16.6 (5-19); Aspartate Amino Transferase 22 U/L (0-32); Potassium 4.6 mmol/L (3.5-5.1)
[2020-05-24 05:55] LABS: INR 1.75 (0.8-1.2)
[2020-05-24 06:48] LABS: Glucose Point of Care 93 mg/dL (70-110)
--- NOTE | 2020-05-24 07:56 | P.PN_ITS ---
Subjective Subjective: Interval history: The patient says her foot has not hurt for 2 days. She said this is the first time in over a month she has not had any foot pain. Nursing reports that the sole of the foot actually looks quite good. They have been doing triple antibiotic ointment to the wound daily, but I made them aware that we wanted to resume the Santyl dressings as of 2 days ago. They are going to start that today. Vitals/I&O/Wt Last Vital Signs Temp 97.2 F L 05/24/20 07:49 Pulse 92 05/24/20 07:49 Resp 23 H 05/24/20 07:49 BP 112/76 05/24/20 07:49 Pulse Ox 96 05/24/20 07:49 05/23/20 05/24/20 05/24/20 22:59 06:59 14:59 Intake Total 120 / 711 351 / 711 Output Total 150 / 175 25 / 175 Balance -30 / 536 326 / 536 Weight last 48 hrs Weight 267 lb 12.8 oz Weight 262 lb 8 oz Physical Exam Narrative: EXAM NARRATIVE: The dressing on the patient's left foot is intact. It appears to have been changed last night at 2200. Data : 05/24/20 04:05 05/24/20 04:05 A&P Assessment and plan (1) Eschar of foot: Status post bedside debridement on 05/21/2020. Santyl dressings will be restarted today, as apparently nursing had missed the order earlier. The patient is being seen in wound clinic. Further [place] [facility]. Status: Acute Attestations Medical Necessity Statement*: See admitting service's notation. Coding Level of Care Code Acute Technology Sales Consultant for Darek Ojeda Diagnoses Eschar of foot R23.4
[2020-05-24] MEDS: venlafaxine ER (24HR) 150 mg Capsule PO (10:04)
[2020-05-24] MEDS: ARIPiprazole 10 mg Tablet 5 MG PO (10:05)
[2020-05-24] MEDS: multivitamin therapeutic Tablet 1 TAB PO (10:05)
[2020-05-24] MEDS: metoprolol tartrate 50 mg Tablet PO (10:05)
[2020-05-24] MEDS: apixaban 5 mg Tablet PO (10:05)
[2020-05-24] MEDS: sennosides-docusate Tablet 1 TAB PO (10:06)
[2020-05-24] MEDS: levothyroxine 125 mcg Tablet PO (10:06)
[2020-05-24] MEDS: atorvastatin 40 mg Tablet PO (10:06)
[2020-05-24] MEDS: FUROsemide 10 mg/mL SDV 2mL 20 MG IVP (10:07)
--- NOTE | 2020-05-24 10:35 | PC.SOCIAL ---
IMM Update Pg. 2 of IMM updated. Voicemail left for son, DPOA, Hugo. Copy left at bedside for patient.
--- NOTE | 2020-05-24 11:45 | PC.NURSE ---
Patient transferred to recliner from bed using devin lift and 3 assists. Patient c/o significnt pain in both legs during transfer. Additional support fro patient legs provided vy director school of nursing. Patient assisted to reposition in chair for comfort. patient states pain decreased in legs after raising foot rest and propping left leg on pillow. Patient states she is willing to stay up in chair for lunch.
[2020-05-24 11:54] LABS: Glucose Point of Care 104 mg/dL (70-110)
[2020-05-24] MEDS: oxyCODONE-APAP 5-325 mg Tablet 1 TAB PO (12:25)
[2020-05-24 15:10] LABS: Potassium, Radom Urine 26 mmol/L; Urine Creatinine 83 mg/dL (28-217); Urine Random Chloride 33 mmol/L; Urine Random Sodium 24 mmol/L
--- NOTE | 2020-05-24 15:15 | PC.NURSE ---
Patient returned to bed using devin lift and 2 assistants
--- NOTE | 2020-05-24 15:18 | P.PN_ITS ---
Subjective Subjective: Interval history: Patient is doing well this morning, she has no complaints, no fevers, no chills, no nausea, no vomiting, no chest pain, no shortness of breath, no lightheadedness, dizziness, over the last 24 hours, patient's urine output has significantly declined, has a Patino catheter in place, she has been bladder scans, Patino has been repositioned, her creatinine is up trended to 1.7, no nephrotoxic agents, I did give her 20 mg of Lasix to see if she would put out urine, she only put out 150 cc Vitals/I&O/Wt Last Vital Signs Temp 97.5 F L 05/24/20 12:00 Pulse 78 05/24/20 12:00 Resp 24 H 05/24/20 12:25 BP 117/86 05/24/20 12:00 Pulse Ox 97 05/24/20 12:00 05/24/20 05/24/20 05/24/20 06:59 14:59 22:59 Intake Total 351 / 711 720 / 720 Output Total 25 / 175 170 / 170 Balance 326 / 536 550 / 550 Weight last 48 hrs Weight 121.472 kg Weight 119.068 kg Physical Exam Const: COMMON NORMALS: no acute distress, patient oriented x3 and alert GENERAL APPEARANCE: cooperative and comfortable ORIENTATION/CONSCIOUSNESS: Yes oriented to person, Yes oriented to place and Yes oriented to time Neck/C-Spine: COMMON NORMALS: no JVD Lymph: LYMPHATIC: no lymphadenopathy noted Resp: COMMON NORMALS: normal respiratory effort, No retractions, No use of accessory muscles and clear to auscultation bilaterally AUSCULTATION: clear to auscultation bilaterally Cardio: COMMON NORMALS: no JVD, regular rate, regular rhythm, S1 normal heart sound present, S2 normal heart sound present, No gallops present (Cardio), No clicks present (Cardio) and No murmurs present (Cardio) RATE: regular rate RHYTHM: regular rhythm HEART SOUNDS: S1 normal heart sound present and S2 normal heart sound present GI: COMMON NORMALS: Normal to inspection, nondistended, normoactive bowel sounds present, Soft to palpation, non-tender and No hepatosplenomegaly present PALPATION: Yes Soft to palpation and Yes No hepatosplenomegaly present Extremity: COMMON NORMALS: normal to inspection, full ROM and no pedal edema Neuro: COMMON NORMALS: patient oriented x3 and CN's II-XII intact bilaterally SENSORIUM/ORIENTATION: Yes alert, Yes oriented to person, Yes oriented to place and Yes oriented to time COORDINATION/BALANCE: [id number] test normal SPEECH: speech normal COORDINATION: [id number] test normal OTHER: Strength right upper extremity 5 out of 5, strength left upper extremity 4 out of 5, strength right lower extremity, 5 out of 5, strength left lower extremity 4-5 Pupils bilaterally reactive to light, no significant facial, no slurring of her speech, she does tend to favor the left side Skin: NARRATIVE SKIN EXAM: Left hernandez, wrapped in bandage, superficial ulcers, good granulation tissue Plantar aspect of the foot, status post debridement, healing well, good granulation tissue, currently wrapped and bandaged Data : 05/24/20 04:05 05/24/20 04:05 A&P Assessment and plan (1) Acute kidney injury superimposed on CKD: -Creatinine is up to 1.7, urine output the last 24 hours has been 500 cc -I did give her 20 mg of IV Lasix, she only put out on 150 cc after -She has no particular complaints, no flank pain, no pain above her bladder -Fena is less than 1, indicating prerenal -Is not on nephrotoxic agents -Did receive 250 cc bolus last night -Start normal saline at 100 cc an hour, monitor urine output fairly closely -We will get a UA, renal ultrasound Status: Acute (2) CVA (cerebral vascular accident): -Has a previous history of CVA, with residual left upper and lower extremity weakness, paresthesias, and leans to the left, Annika lift dependent, chronic Patino -At 5 AM, had concerns for left-sided gaze palsy, a aphasia, but was asymptomatic when she arrived in the emergency room, not a TPA candidate, CT h ead no intracranial bleed -NIH stroke scale 2, but hard to assess as she has chronic left upper lobe tremor weakness, I do not know what her baseline is -Has a history of atrial fibrillation, not on anticoagulation for what I presume to be secondary to anemia, transfusion dependent anemia, no known history of GI bleeds, or falls -In the ER she was found to have atrial fibrillation, heart rates in the high 120s Plan: -Admit to the cardiac stepdown unit -Continues statin, due to risk of GI bleed and bleeding, I have stopped aspirin, continue Eliquis -Continue Eliquis -Neurochecks, aspiration precautions -PT OT -Manage atrial fibrillation with metoprolol 50 mg twice daily -Bilateral carotid artery ultrasounds no no significant artery stenosis Status: Acute Qualifiers: CVA mechanism: unspecified Qualified Code(s): I63.9 - Cerebral infarction, unspecified (3) Chronic kidney disease, stage 3: Creatinine 1.3 Status: Chronic (4) Acute on chronic anemia: -History of transfusions on the last hospital admission secondary to anemia, her Hemoccult stool was positive -We will continue to monitor hemoglobin on heparin drip Status: Acute (5) Bacteremia: -History of VRE bacteremia, with negative transesophageal echocardiogram, respiratory cultures positive for MRSA, urine cultures positive for ESBL E. coli blood cultures negative for 4 hours -For now continue Zyvox Status: Acute (6) Atrial fibrillation: -Anticoagulate with Eliquis, metoprolol for rate control Status: Acute Qualifiers: Atrial fibrillation type: longstanding persistent Qualified Code(s): I48.11 - Longstanding persistent atrial fibrillation (7) Sleep apnea: Status: Acute (8) Vascular dementia: Status: Chronic Qualifiers: Dementia behavioral disturbance: with behavioral disturbance Qualified Code(s): F01.51 - Vascular dementia with behavioral disturbance (9) Diabetic nephropathy: Status: Chronic Qualifiers: Diabetes mellitus type: type 2 Qualified Code(s): E11.21 - Type 2 diabetes mellitus with diabetic nephropathy (10) Type 2 diabetes mellitus: -Low-dose sliding scale Status: Chronic Qualifiers: Diabetes mellitus complication status: with other specified complication Diabetes mellitus termite 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 insulin use: without termite 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 use Qualified Code(s): E11.69 - Type 2 diabetes mellitus with other specified complication (11) Leg ulcer, left: -Left heel, necrotic debris, status post debridement by Dr. Preciado, postop day 2 -Continue wound dressing, continue Zyvox Status: Acute (12) Hypertension: Status: Chronic Qualifiers: Hypertension type: essential hypertension Qualified Code(s): I10 - Essential (primary) hypertension (13) COPD (chronic obstructive pulmonary disease): Status: Chronic Qualifiers: COPD type: emphysema Emphysema type: unspecified Qualified Code(s): J43.9 - Emphysema, unspecified (14) Elevated troponin: Status: Acute (15) NSTEMI (non-ST elevated myocardial infarction): -No complaints of chest pain, shortness of breath -Baseline troponin 84, 120-minute 111.2, delta of 27.2 -EKG atrial fibrillation, no acute ST-T wave changes -EF on last echocardiogram in April 2020, showed grossly normal ejection fraction -Continue aspirin, statin, telemetry monitoring, serial EKGs, serial troponins -Likely supply demand ischemia from atrial fibrillation -cardiology consult, likely will need an outpatient stress test Status: Acute (16) Leukocytosis: -UA negative for UTI, chest x-ray negative for pneumonia, bilateral hernandez cellulitis, with left hernandez ulcers, healing well,, on appropriate antibiotics, Zyvox -We will continue to monitor, monitor for fevers, monitor hemodynamics Status: Acute Qualifiers: Leukocytosis type: unspecified Qualified Code(s): D72.829 - Elevated white blood cell count, unspecified (17) Stress-induced cardiomyopathy: -Stress-induced cardiomyopathy likely secondary from left lower extremity cellulitis, VRE bacteremia, atrial fibrillation -Currently EF is down to 35%, will require an outpatient repeat echocardiogram versus stress test in the next few months -We will have patient follow with Dr. Liu as outpatient Status: Acute Attestations Medical Necessity Statement*: She requires hospitalization due to acute kidney injury, decreasing urine output, CVA, stress-induced cardiomyopathy, atrial fibrillation Coding Level of Care Code Acute Litigation Paralegal for [facility] Fwd Diagnoses Acute kidney injury superimposed on CKD N17.9; N18.9 CVA (cerebral vascular accident) I63.9 CVA mechanism: unspecified Chronic kidney disease, stage 3 N18.3 Acute on chronic anemia D64.9 Bacteremia R78.81 Atrial fibrillation I48.11 Atrial fibrillation type: longstanding persistent Sleep apnea G47.30 Vascular dementia F01.51 Dementia behavioral disturbance: with behavioral disturbance Diabetic nephropathy E11.21 Diabetes mellitus type: type 2 Type 2 diabetes mellitus E11.69 Diabetes mellitus complication status: with other specified complication Diabetes mellitus termite 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 insulin use: without custodial use Leg ulcer, left L97.929 Hypertension I10 Hypertension type: essential hypertension COPD (chronic obstructive pulmonary disease) J43.9 COPD type: emphysema Emphysema type: unspecified Elevated troponin R79.89 NSTEMI (non-ST elevated myocardial infarction) I21.4 Leukocytosis D72.829 Leukocytosis type: unspecified Stress-induced cardiomyopathy I51.81
[2020-05-24 15:24] LABS: Eosinophil Urine No Eosinophils Seen; Urine Eosinophil Count 0 (0-0)
[2020-05-24 16:39] LABS: Add Urine Microscopic? YES; Bacteria Urine 2+; Bilirubin Urine Neg (NEGATIVE); Blood Urine 3+ (Negative); Glucose Urine UA Norm (Normal); Ketones Urine Negative (Negative); Leukocyte Esterase Urine 2+ (Negative); Mucus Urine 1+; Nitrate Urine Negative (Negative); Protein Urine 1+ (Negative); Specific Gravity, Urine 1.015 (1.005-1.030); Squamous Epithelial Cell Urine RARE (0-5); Urine Appearance Hazy (CLEAR); Urine Color Straw (Yellow); Urobilinogen Urine Norm (Negative); WBC Urine 15-25 /hpf (0-5); pH Urine 5 (5-7)
[2020-05-24 16:40] LABS: Add Urine Culture? Yes
[2020-05-24 17:00] LABS: Glucose Point of Care 105 mg/dL (70-110)
[2020-05-24] MEDS: sodium chloride 0.9% 1,000 ML 100 ML IV (17:23)
--- NOTE | 2020-05-24 18:47 | PM.PN ---
Subjective Subjective: Interval history: The patient is feeling okay. Denies any chest pain or shortness of breath. Her urine output is going down. Creatinine level is going up. No fever or chills. Medications: Medication Review Details: Current Medications Acetaminophen (Tylenol) 650 mg PO QID PRN PRN Reason: Pain Last Admin: 05/21/20 14:44 Dose: 650 mg Documented by: Apixaban (Eliquis) 5 mg PO BID [facility] Last Admin: 05/24/20 18:39 Dose: Not Given Documented by: Aripiprazole (Abilify) 5 mg PO BID [facility] Last Admin: 05/24/20 18:40 Dose: Not Given Documented by: Atorvastatin Calcium (Lipitor) 40 mg PO DAILY [facility] Last Admin: 05/24/20 10:06 Dose: 40 mg Documented by: Collagenase (Santyl) 1 applic TOPICAL DAILY [facility] Dextrose (D50w) 25 ml IVP ONCE PRN; Protocol PRN Reason: hypoglycemia protocol Dextrose (D50w) 50 ml IVP PRN PRN; Protocol PRN Reason: hypoglycemia protocol Glucagon (Glucagen) 1 mg IM ONCE PRN; Protocol PRN Reason: Adult Acute Hypoglycemia Prot. Dextrose (D5w) 500 mls @ 100 mls/hr IV ONCE PRN; Protocol PRN Reason: Adult Acute Hypoglycemia Prot Sodium Chloride (Sodium Chloride 0.9%) 1,000 mls @ 100 mls/hr IV .Q10H [facility] Last Admin: 05/24/20 17:23 Dose: 100 mls/hr Documented by: Insulin Aspart (Novolog) 0 unit SUBCUT TIDWM [facility]; Protocol Last Admin: 05/24/20 17:39 Dose: Not Given Documented by: Levothyroxine Sodium (Synthroid) 125 mcg PO DAILY [facility] Last Admin: 05/24/20 10:06 Dose: 125 mcg Documented by: Linezolid (Zyvox Tablet) 600 mg PO Q12H [facility]; Protocol Last Admin: 05/24/20 12:24 Dose: 600 mg Documented by: Magnesium Hydroxide (Milk Of Magnesia) 30 ml PO DAILY PRN PRN Reason: Constipation Metoprolol Tartrate (Lopressor) 50 mg PO BID [facility] Last Admin: 05/24/20 18:40 Dose: Not Given Documented by: Multivitamins Therapeutic (Multivitamin Tab) 1 tab PO DAILY [facility] Last Admin: 05/24/20 10:05 Dose: 1 tab Documented by: Neomycin/Polymyxin/Bacitracin (Neosporin Oint Tube) 1 applic TOPICAL BID PRN PRN Reason: with dressing changes Last Admin: 05/21/20 15:58 Dose: 1 applic Documented by: Non-Formulary Medication (Fluticasone Furoate-Vilanterol [Breo Ellipta]) 1 inh INHALATION DAILY [facility] Ondansetron HCl (Zofran) 4 mg PO TID PRN PRN Reason: Nausea Last Admin: 05/21/20 16:34 Dose: 4 mg Documented by: Oxycodone/Acetaminophen (Percocet 5-325 Mg) 1 tab PO Q4H PRN PRN Reason: Pain Last Admin: 05/24/20 12:25 Dose: 1 tab Documented by: Senna/Docusate Sodium (Senna-S) 1 tab PO DAILY [facility] Last Admin: 05/24/20 10:06 Dose: 1 tab Documented by: Venlafaxine HCl (Effexor Xr) 150 mg PO DAILY [facility] Last Admin: 05/24/20 10:04 Dose: 150 mg Documented by: Vitals/I&O/Wt Last Vital Signs Temp 97.2 F L 05/24/20 16:00 Pulse 81 05/24/20 16:00 Resp 20 H 05/24/20 16:00 BP 94/63 05/24/20 16:00 Pulse Ox 92 05/24/20 16:00 05/24/20 05/24/20 05/24/20 06:59 14:59 22:59 Intake Total 351 / 711 720 / 720 240 / 960 Output Total 25 / 175 170 / 170 Balance 326 / 536 550 / 550 240 / 790 Weight last 48 hrs Weight 267 lb 12.8 oz Weight 262 lb 8 oz Physical Exam Narrative: EXAM NARRATIVE: GENERAL: The patient is alert and oriented times three. Not in any acute distress. HEENT: Mild pallor. No icterus or lymphadenopathy.Oral cavity: There are no mucous membrane lesions. NECK: Trachea appears to be central. No masses noted. No JVD or thyromegaly appreciated. RESPIRATORY: Chest is symmetrical. No intercostals muscle retraction or any accessory muscle activation. There is no chest wall tenderness. Breath sounds are heard bilaterally. No rales or rhonchi heard. No evidence of any consolidation. BREASTS: Deferred. HEART: The heart sounds are normal. No S3 or S4. No significant murmurs. No pericardial rub ABDOMEN: No vessel pulsations or distention. No tenderness. No organomegaly appreciated. Bowel sounds are normally heard. : Deferred. RECTAL: Deferred. LYMPHATIC: No lymphadenopathy noted in the neck or groin. EXTREMITIES: 2+ edema both lower extremities. Features of bilateral cellulitis and nonhealing ulcers on the dorsum of the left foot. MUSCULOSKELETAL: No acute joint deformities or swelling SKIN: There are no significant rashes or ecchymosis NEUROPSYCHIATRIC: The patient is alert and oriented x3. Appears to be in a good mood. No tremors or rigidity noted. Data : 05/24/20 04:05 05/24/20 04:05 Other Labs: Laboratory Last Values WBC 11.8 10^3/uL (4.0-10.0) H 05/24/20 04:05 RBC 3.13 10^6/uL (4.1-5.3) L 05/24/20 04:05 Hgb 8.9 g/dL (11.5-15.3) L 05/24/20 04:05 Hct 29.2 % (37.0-47.0) L 05/24/20 04:05 MCV 93.3 fL (81-99) 05/24/20 04:05 MCH 28.4 pg (28.0-34.0) 05/24/20 04:05 MCHC 30.5 g/dL (30.0-36.0) 05/24/20 04:05 RDW 19.6 % (12.1-15.1) H 05/24/20 04:05 Plt Count 345 10^3/cmm (130-400) 05/24/20 04:05 MPV 9.6 fL (7.4-10.4) 05/24/20 04:05 Neut % (Auto) 61.1 % 05/24/20 04:05 Lymph % (Auto) 28.4 % 05/24/20 04:05 [place] % (Auto) 5.5 % 05/24/20 04:05 Eos % (Auto) 4.0 % 05/24/20 04:05 Baso % (Auto) 0.3 % 05/24/20 04:05 Neut # (Auto) 7.21 10^3/uL (1.8-7.7) 05/24/20 04:05 Lymph # (Auto) 3.3 10^3/uL (0.8-4.8) 05/24/20 04:05 [place] # (Auto) 0.7 10^3/uL (0.2-0.9) 05/24/20 04:05 Eos # (Auto) 0.5 10^3/uL (0.0-0.8) 05/24/20 04:05 Baso # (Auto) 0.0 10^3/uL (0.0-0.1) 05/24/20 04:05 Nucleated RBC % (auto) 0 % 05/24/20 04:05 Nucleated RBCs # 0.0 /100WBC 05/24/20 04:05 ESR 57 mm/hr (0-15) H 05/21/20 05:31 PT 21.00 SECONDS (12.1-14.9) H D 05/24/20 04:05 INR 1.75 (0.8-1.2) H 05/24/20 04:05 APTT 51.6 SECONDS (23.9-36.7) H D 05/23/20 11:51 Sodium 136 mmol/L (136-145) 05/24/20 04:05 Potassium 4.6 mmol/L (3.5-5.1) 05/24/20 04:05 Chloride 106 mmol/L (98-107) 05/24/20 04:05 Carbon Dioxide 18 mmol/L (22-29) L 05/24/20 04:05 Anion Gap 16.6 (5-19) 05/24/20 04:05 BUN 17 mg/dL (8-23) 05/24/20 04:05 Creatinine 1.7 mg/dL (0.5-0.9) H 05/24/20 04:05 GFR Calculation Not Reportable 05/24/20 04:05 Glucose 105 mg/dL (65-115) 05/24/20 04:05 POC Glucose 105 mg/dL (70-110) 05/24/20 16:45 Estimat Average Glucose 105 05/21/20 05:31 Hemoglobin A1c 5.3 % (4.0-6.0) 05/21/20 05:31 Calculated Osmolality 279 mOsm/kg (285-295) L 05/24/20 04:05 Lactic Acid 3.3 mmol/L (0.5-2.2) H 05/21/20 07:45 Lactic Acid (Sepsis) 2.3 mmol/L (0.5-2.2) H 05/21/20 12:03 Calcium 7.4 mg/dL (8.5-10.5) L 05/24/20 04:05 Phosphorus 4.0 mg/dL (2.5-4.5) 05/24/20 04:05 Magnesium 1.8 mg/dL (1.7-2.3) 05/24/20 04:05 Total Bilirubin 0.2 mg/dL (0.15-1.2) 05/24/20 04:05 AST 22 U/L (0-32) 05/24/20 04:05 ALT 17 U/L (0-33) 05/24/20 04:05 Alkaline Phosphatase 137 IU/L (35-105) H 05/24/20 04:05 Troponin T Gen 5 ng/L 168 ng/L (0-10) H* 05/21/20 17:00 Troponin T Baseline 84 ng/L (0-10) H 05/21/20 05:31 Troponin T 120 Minute 111.2 ng/L (0-10) H 05/21/20 07:45 Delta Troponin T 27.2 ABS# (0-10) H* 05/21/20 07:45 Troponin T Hi Sens 6Hr 145.2 ng/L (0-10) H 05/21/20 12:03 Troponin T Hi Sens 6Hr Delta 61.2 ng/L (0-12) H* 05/21/20 12:03 C-Reactive Protein 126.1 mg/L (0.0-4.9) H 05/24/20 04:05 NT-Pro-B Natriuret Pep 7130 pg/mL (0-125) H 05/21/20 07:45 Total Protein 5.3 g/dL (6.6-8.7) L 05/24/20 04:05 Albumin 2.3 g/dL (3.5-5.2) L 05/24/20 04:05 Globulin 3.0 g/dL (1.3-4.6) 05/24/20 04:05 Triglycerides 126 mg/dL (0-150) 05/21/20 05:31 Cholesterol 92 mg/dL (0-200) 05/21/20 05:31 LDL Cholesterol, Calc 24 mg/dL (50-129) L 05/21/20 05:31 HDL Cholesterol 43 mg/dL (60-100) L 05/21/20 05:31 LDL/HDL Ratio 0.56 RATIO (0.00-3.22) 05/21/20 05: Cholesterol/HDL Ratio 2.14 mg/dL (0.0-4.40) 05/21/20 05:31 Procalcitonin 0.40 ng/mL (0-0.5) 05/24/20 04:05 Urine Color Straw (Yellow) 05/24/20 13:20 Urine Appearance Hazy (CLEAR) A 05/24/20 13:20 Urine pH 5 (5-7) 05/24/20 13:20 Ur Specific Wilbur 1.015 (1.005-1.030) 05/24/20 13:20 Urine Protein 1+ (Negative) H 05/24/20 13:20 Urine Glucose (UA) Norm (Normal) 05/24/20 13:20 Urine Ketones Negative (Negative) 05/24/20 13:20 Urine Blood 3+ (Negative) H 05/24/20 13:20 Urine Nitrate Negative (Negative) 05/24/20 13:20 Urine Bilirubin Neg (NEGATIVE) 05/24/20 13:20 Urine Urobilinogen Norm mg/dL (Negative) 05/24/20 13:20 Ur Leukocyte Esterase 2+ (Negative) H 05/24/20 13:20 Urine RBC 5-10 /hpf (0-2) H 05/24/20 13:20 Urine WBC 15-25 /hpf (0-5) H 05/24/20 13:20 Ur Eosinophil Smear 0 (0-0) 05/24/20 13:20 Ur Squamous Epith Cells Rare (0-5) 05/24/20 13:20 Amorphous Sediment Not Reportable 05/24/20 13:20 Urine Bacteria 2+ (NONE) H 05/24/20 13:20 Hyaline Casts 5-10 H 05/24/20 13:20 Urine Mucus 1+ 05/24/20 13:20 Urine Eosinophils No eosinophils seen 05/24/20 13:20 Ur Random Sodium 24 mmol/L 05/24/20 13:20 Ur Random Potassium 26 mmol/L 05/24/20 13:20 Ur Random Chloride 33 mmol/L 05/24/20 13:20 Urine Creatinine 83 mg/dL (28-217) 05/24/20 13:20 A&P Assessment and plan (1) Elevated troponin level: Most likely related to type II myocardial infarction. Possibility of having underlying coronary disease cannot be excluded but my clinical suspicion may be low. Patient has a history of GI bleed. She is on Eliquis. She also is taking the aspirin. In view of her extremely poor physical condition, practically bedridden state, optimizing the medical treatment may be the appropriate plan of action for the time being. May consider doing a myocardial perfusion imaging, sometime down the line Status: Acute (2) Intermittent atrial fibrillation: Patient was started on Eliquis. At this time, it may be appropriate to stop the aspirin in view of the GI bleed. May continue on her other current medications. Status: Acute (3) Nonischemic cardiomyopathy: Possibly has a stress-induced cardiomyopathy. She may have a low output state. I may go ahead and start her on Losartan 25 mg PO daily, which may be transitioned to Entresto, if the blood pressure tolerates. Status: Acute (4) Chronic kidney disease, stage 3: Rising creatinine level, etiology?. Could be related to the low output state. Need to optimize the afterload reducing agent. Status: Chronic (5) Chronic anemia: This needs to be closely monitored especially in view of the history of GI bleed. Would be appropriate to discontinue the aspirin and keep on the Eliquis Status: Acute Additional A&P Information Based on the clinical progress, further management decisions will be made Attestations Medical Necessity Statement*: Patient requires continued hospital stay for close monitoring and further management Coding Level of Care Code Acute Primer Supervisor for [facility] Ojeda Diagnoses Elevated troponin level R79.89 Intermittent atrial fibrillation I48.0 Nonischemic cardiomyopathy I42.8 Chronic kidney disease, stage 3 N18.3 Chronic anemia D64.9
[2020-05-24 21:40] LABS: Glucose Point of Care 98 mg/dL (70-110)
--- NOTE | 2020-05-24 22:26 | PC.NURSE ---
Patient has pulled telemetry wires off several times and they have been placed back on several times. Patient is confused at times and doesn't comprehend education well. Will keep telemetry wires on as often as I can and monitor.
[2020-05-25] VITALS (93 sets, daily range): BP systolic 55–150; BP diastolic 26–111; PULSE 74–137; RESP 14–34; TEMP 36.4–37.2; O2SAT 91–100
[2020-05-25] MEDS: linezolid 600 mg Tablet PO (01:40)
[2020-05-25] MEDS: oxyCODONE-APAP 5-325 mg Tablet 1 TAB PO (01:41)
--- NOTE | 2020-05-25 02:26 | PC.NURSE ---
Patient pulled IV out of right AC. Catheter was intact. New IV was started in right AC on first attempt with 20 gauge. Patient had incontinent episode of bowel. Patient was cleaned and new sheets and clean gown provided. Sacral area is very red. Patient was turned on left side with pillows placed to prevent skin breakdown. Dressing change was completed to left lower extremity per order. Bed alarm is still set. Will monitor.
[2020-05-25] MEDS: collagenase oint 30 gm 1 APPLIC TOPICAL ×2 (02:33→09:38)
[2020-05-25] MEDS: sodium chloride 0.9% 1,000 ML 100 ML IV (02:34)
--- NOTE | 2020-05-25 05:34 | PC.NURSE ---
Patient ripped IV tubing in half by accident due to confusion. Some of the NS bag leaked onto floor. Floor will be cleaned and complete linen change will be provided. Patient again continually pulls of telemetry leads due to confusion.
--- NOTE | 2020-05-25 06:00 | US_ITS ---
WS: [id number] RENAL ULTRASOUND BLADDER ULTRASOUND HISTORY: toro COMPARISON: 04/16/2020 TECHNIQUE: 2-D and color Doppler imaging of the kidney submitted. Extremely limited evaluation of the kidneys. Right kidney: 9.7 cm x 5.4 cm x 5.3 cm. Normal echogenicity with no hydronephrosis or mass. Left kidney: 10.2 cm x 5.2 cm x 5.1 cm. Very poor visualization of the LEFT kidney. Cannot exclude mass, cortical thinning or hydronephrosis. Aorta: Not visualized. Urinary Bladder: Not visualized. US/US renal BI with bladder IMPRESSION: 1. Extremely limited evaluation of the kidneys and bladder due to body habitus . 2. Nonvisualization of the urinary bladder and very minimal visualization of t he LEFT kidney.
[2020-05-25 06:17] LABS: Glucose Point of Care 77 mg/dL (70-110)
--- NOTE | 2020-05-25 06:26 | PC.NURSE ---
Dr. Mittal notified of patient appearing to work hard to breath this morning. Heart rate 120 in chronic a-fib. lungs clear and 96 percent on room air. Dr. Mittal ordered to try Bipap, but was notified that patient will not be able to tolerate due to confusion. Patient has been pulling telemetry wires off and IVs out frequently.
--- NOTE | 2020-05-25 06:41 | XR_ITS ---
WS: [id number] PORTABLE CHEST HISTORY: tachypneic COMPARISON: 05/21/2020 Lung volumes are decreased. No pneumonia. No pleural effusion or pneumothorax. Cardiac size: Moderately enlarged cardiac silhouette. Mediastinum/Aorta: Mild atherosclerosis aorta. No osseous abnormality seen. XR/XR chest 1V portable [id number] IMPRESSION: Moderate cardiomegaly. No pneumonia. No interval change.
[2020-05-25 07:01] LABS: Basophils # 0.1 10^3/uL (0.0-0.1); Basophils % 0.4 %; Eosinophils # 0.1 10^3/uL (0.0-0.8); Eosinophils % 0.4 %; Hematocrit 29.7 % (37.0-47.0); Lymphocytes # 3.4 10^3/uL (0.8-4.8); Lymphocytes % 22.8 %; Mean Corpuscular HGB Conc 30.3 g/dL (30.0-36.0); Mean Corpuscular Hemoglobin 29.4 pg (28.0-34.0); Mean Corpuscular Volume 97.1 fL (81-99); Mean Platelet Volume 9.3 fL (7.4-10.4); Monocytes # 0.7 10^3/uL (0.2-0.9); Monocytes % 4.4 %; Neutrophils # 10.74 10^3/uL (1.8-7.7); Neutrophils % 71.4 %; Nucleated Red Blood Cells % 0 %; Platelet Count 380 10^3/cmm (130-400); Red Blood Count 3.06 10^6/uL (4.1-5.3); Red Cell Distribution Width 19.8 % (12.1-15.1)
[2020-05-25 07:22] LABS: Alanine Aminotransferase 14 U/L (0-33); Albumin Level 2.4 g/dL (3.5-5.2); Alkaline Phosphatase 152 IU/L (35-105); Anion Gap 26.9 (5-19); Aspartate Amino Transferase 23 U/L (0-32); Blood Urea Nitrogen 17 mg/dL (8-23); Chloride 108 mmol/L (98-107); Globulin 3.7 g/dL (1.3-4.6); Glucose 97 mg/dL (65-115); Magnesium 1.8 mg/dL (1.7-2.3); Osmolality Calculated 282 mOsm/kg (285-295); Phosphorus 4.9 mg/dL (2.5-4.5); Potassium 4.9 mmol/L (3.5-5.1); Sodium 138 mmol/L (136-145); Total Bilirubin 0.4 mg/dL (0.15-1.2); Total Protein 6.1 g/dL (6.6-8.7)
[2020-05-25 07:34] LABS: Carbon Dioxide 8 mmol/L (22-29)
[2020-05-25] MEDS: ipratropium-albuterol 3 mL Neb INHALATION (07:36)
[2020-05-25 09:01] LABS: D Dimer 2.45 ug/mIFEU (0-0.59)
--- NOTE | 2020-05-25 09:31 | PM.PN ---
Subjective Subjective: Interval history: Chart reviewed, patient known to me from previous admission, with stable hemoglobin at 9.0, increased leukocytosis, hemodynamically stable, afebrile, on room air, had 100 mL urine output overnight, worsening renal function with creatinine up to 2.3. IV fluids discontinued overnight likely due to concern for fluid overload. Chest x-ray done showing moderate cardiomegaly, otherwise unchanged. Patient quite somnolent, intermittently batting things away with her hands, otherwise minimally responsive, audibly wheezing and sounds congested so requested BiPAP due to concern for fluid overload. Initial attempts at ABG unsuccessful. Patient quite restless and trying to swing her legs over the side of the bed. Very difficult to redirect so one-on-one sitter requested. Continues to be altered even with BiPAP use, noted to be quite acidotic on ABG so transferred to ICU for closer monitoring. I called and spoke to patient's son Hugo over the phone explaining patient's change in clinical status including altered mentation, decreased urine output and worsening renal function. He expressed frustration and concern over noted change and critical nature of patient's status. Relayed that he would like us to do everything possible for his mother. Hugo did come and visit patient during visiting hours during which time I was able to have a [id number] discussion with him updating him on how patient was doing. At this point nephrology had been consulted and recommended dialysis. Patient was in the process of getting temporary dialysis catheter placement, continues to require BiPAP and has been NPO since earlier this morning. Sitter remains at bedside. Son verbalized understanding of patient's clinical status. Was given opportunity to ask questions. Patient seen after 7 PM following initiation of dialysis. Unfortunately has become quite hypotensive with systolic blood pressure in the 50s so dialysis discontinued and will start on dobutamine drip. Medications: Reviewed: Yes Medication Review Details: Active Medications Generic Name Dose Route Start Last Admin Trade Name Freq PRN Reason Stop Dose Admin Acetaminophen 650 mg 05/21/20 12:11 05/21/20 14:44 Tylenol PO 650 mg QID PRN Administration Pain Apixaban 5 mg 05/23/20 12:35 05/24/20 18:39 Eliquis PO Not Given BID SWATI Aripiprazole 5 mg 05/22/20 18:00 08/30/20 18:40 Abilify PO Not Given BID [facility] Atorvastatin Calci um 40 mg 05/21/20 13:00 05/24/20 10:06 Lipitor PO 40 mg DAILY SWATI Administration Collagenase 1 applic 05/24/20 17:00 05/25/20 02:33 Santyl TOPICAL 1 applic DAILY SWATI Administration Dextrose 25 ml 05/21/20 13:50 D50w IVP ONCE PRN hypoglycemia prot ocol Protocol Dextrose 50 ml 05/21/20 13:50 D50w IVP PRN PRN hypoglycemia prot ocol Protocol Glucagon 1 mg 05/21/20 13:50 Glucagen IM ONCE PRN Adult Acute Hypog lycemia Prot. Protocol Dextrose 500 mls @ 100 mls /hr 05/21/20 13:50 D5w IV ONCE PRN Adult Acute Hypog lycemia Prot Protocol Sodium Chloride 1,000 mls @ 100 m ls/hr 05/24/20 15:30 05/25/20 02:34 Sodium Chloride 0.9% IV 100 mls/hr .Q10H SWATI Administration Insulin Aspart 0 unit 05/21/20 18:00 05/25/20 07:45 Novolog SUBCUT Not Given TIDWM [facility] Protocol Levothyroxine Sodi um 125 mcg 05/21/20 14:00 05/24/20 10:06 Synthroid PO 125 mcg DAILY SWATI Administration Linezolid 600 mg 05/21/20 13:00 05/25/20 01:40 Zyvox Tablet PO 600 mg Q12H SWATI Administration Protocol Magnesium Hydroxid e 30 ml 05/21/20 12:11 Milk Of Magnesia PO DAILY PRN Constipation Metoprolol Tartrat e 50 mg 05/21/20 18:00 05/24/20 18:40 Lopressor PO Not Given BID [facility] Multivitamins Ther apeutic 1 tab 05/22/20 09:00 05/24/20 10:05 Multivitamin Tab PO 1 tab DAILY SWATI Administration Neomycin/Polymyxin /Bacitracin 1 applic 05/21/20 14:33 05/21/20 15:58 Neosporin Oint T ube TOPICAL 1 applic BID PRN Administration with dressing walter nges Non-Formulary Medi cation 1 inh 05/23/20 09:00 Fluticasone Furo ate-Vilanterol [Br eo Ellipta] INHALATION DAILY [facility] Ondansetron HCl 4 mg 05/21/20 12:11 05/21/20 16:34 Zofran PO 4 mg TID PRN Administration Nausea Oxycodone/Acetamin ophen 1 tab 05/22/20 16:52 05/25/20 01:41 Percocet 5-325 M g PO 1 tab Q4H PRN Administration Pain Senna/Docusate Sod ium 1 tab 05/22/20 09:00 05/24/20 10:06 Senna-S PO 1 tab DAILY SWATI Administration Venlafaxine HCl 150 mg 05/23/20 09:00 05/24/20 10:04 Effexor Xr PO 150 mg DAILY SWATI Administration clarithromycin Allergy (Unknown, Verified 04/16/20 14:33) Unknown hydrocodone Allergy (Unknown, Verified 04/16/20 14:33) Unknown metformin Allergy (Unknown, Verified 04/16/20 14:33) Unknown sitagliptin [From [facility]] Allergy (Unknown, Verified 04/16/20 14:33) Unknown tetanus and diphtheria toxoids Allergy (Unknown, Verified 04/16/20 14:33) Unknown triamcinolone Allergy (Unknown, Verified 04/16/20 14:33) Unknown Vitals/I&O/Wt Last Vital Signs Temp 97.5 F L 05/25/20 07:48 Pulse 74 05/25/20 07:48 Resp 16 05/25/20 07:48 BP 133/84 05/25/20 07:48 Pulse Ox 96 05/25/20 07:48 05/24/20 05/25/20 05/25/20 22:59 06:59 14:59 Intake Total 290 / 1010 918.333 / 1928.333 Output Total 100 / 270 Balance 290 / 840 818.333 / 1658.333 Weight last 48 hrs Weight 121.472 kg Physical Exam Const: GENERAL APPEARANCE: lethargic, ill appearing and Edematous NUTRITIONAL APPEARANCE: obese morbidly obese ORIENTATION/CONSCIOUSNESS: Yes confused and Yes lethargic OTHER: -Very restless HENMT: COMMON NORMALS: normocephalic and atraumatic HEAD & SCALP: normocephalic and atraumatic MOUTH: moist mucous membranes abnormal Details: parched Eye: COMMON NORMALS: Equal, round and reactive pupils present, EOMs intact bilaterally and conjunctivae normal CONJUNCTIVA: Yes conjunctivae normal PUPIL: Yes Equal, round and reactive pupils present Neck/C-Spine: COMMON NORMALS: full ROM GENERAL: Yes normal visual inspection and Yes trachea midline Resp: EFFORT & INSPECTION: Yes tachypneic and Yes audible wheezes AUSCULTATION: diminished lung sounds OTHER: -Currently on BiPAP, audibly congested Cardio: COMMON NORMALS: regular rate, regular rhythm, S1 normal heart sound present, S2 normal heart sound present and No murmurs present (Cardio) RATE: regular rate RHYTHM: regular rhythm HEART SOUNDS: S1 normal heart sound present and S2 normal heart sound present GI: COMMON NORMALS: Normal to inspection, nondistended, normoactive bowel sounds present and Soft to palpation INSPECTION: Yes central obesity PALPATION: Yes Soft to palpation and Yes Hernia present ventral OTHER: -Unable to gauge tenderness but does not overtly grimace or wince during palpation : BLADDER/KIDNEY EXAM: Yes catheter in place Catheter type (Female): urethral EXTERNAL FEMALE EXAM: Yes Hernia present OTHER: -Right femoral central line Extremity: NARRATIVE EXTREMITY EXAM: -Bed-bound at baseline -Chronic bilateral lower extremity lymphedema GENERAL: Yes edema Neuro: SENSORIUM/ORIENTATION: Yes lethargic Psych: ACTIVITY/MOTOR BEHAVIOR: Yes restless Skin: NARRATIVE SKIN EXAM: -Scattered bruising Data : 05/25/20 06:45 05/25/20 12:37 A&P Assessment and plan (1) Septic shock: -Noted significant leukocytosis, lactic acidosis, with associated acute respiratory failure, acute metabolic encephalopathy, hypotension, acute renal impairment, anuria -Noted to have decreased ejection fraction of 30 to 35% on limited echo which is likely contributing to overall clinical decompensation -Started on dobutamine; anticipate need for additional pressor support -Close monitoring of vital signs -Currently requiring BiPAP, repeat ABG to determine if emergent need for intubation. Repeat ABG shows improvement in acidosis. Has been on bicarb drip. Anticipate need for intubation with increased volume with multiple IV medications particularly in light of failed attempt at dialysis -Unclear source of infection currently with noted leukocytosis, lactic acidosis, suspicion clinically for GI source; already on Zyvox and Zosyn. Add metronidazole for broader spectrum coverage -Received 2 doses of albumin Status: Acute (2) Acute kidney injury superimposed on CKD: -Noted to be oliguric with worsening renal function -IV fluid hydration discontinued due to concern for fluid overload overnight -Has had issues in the past with acute renal impairment including during last admission -Continue to monitor urine output -Avoid nephrotoxins, renally dose meds -If continued renal impairment and decreased urine output will require nephrology evaluation -Baseline creatinine appears to be around 1-1.4 though has been as high as 5.7 in the past -in light of decreased EF, could be related to low output -renal US: limited -PERRY on CKD stage 3 Status: Acute (3) Stress-induced cardiomyopathy: -limited Echo: EF=30=35% Status: Acute (4) Chronic anemia: -baseline Hg appears to be 10-11 -required transfusion of 2 units PRBCs during last admission -Hg stable; continue to monitor closely -continue to monitor for bleeding Status: Chronic (5) CVA (cerebral vascular accident): -CT head: chronic changes -carotid US: <50% bilateral ICA stenosis -off ASA due to GI bleed hx; on statin Status: Acute Qualifiers: CVA mechanism: unspecified Qualified Code(s): I63.9 - Cerebral infarction, unspecified (6) Elevated troponin level: -noted elevated troponins; likely type II due to demand ischemia -Cardiology evaluation appreciated -limited echo as noted above -on AC with Eliquis -will likely need outpatient stress testing Status: Acute (7) Intermittent atrial fibrillation: -currently rate controlled -telemetry monitoring -continue to monitor vital signs -on AC with Eliquis -Echo: EF=30-35% -off ASA due to GI bleed hx Status: Acute (8) Acute metabolic encephalopathy: -In light of continued clinical decompensation including development of septic shock Status: Acute (9) Hypotension: -As noted above Status: Acute Qualifiers: Hypotension type: unspecified hypotension type Qualified Code(s): I95.9 - Hypotension, unspecified Additional A&P Information -GERD -Morbid obesity: BMI-46 kg/m2 though overall has quite poor nutrition status as reflected by hypoalbuminemia which is contributing to lymphedema. -large hiatal hernia -Dyslipidemia; on statin -Chronic pain; on narcotics -Gram positive bacteremia secondary to LE cellulitis and acutely infected LLE wounds which were surgically debrided during last admission and additional bedside debridement on 05/21; blood cx grew VRE Enterococcus faecium. On Zyvox. Blood cx (05/21): negative. Wound care with Santyl; continue to f/u at [facility] on d/c -Peripheral vascular disease; seen by Dr. Alejandre during previous admission, s/p peripheral angiogram with no noted significant vascular compromise noted. -COPD, not oxygen dependent at baseline -Vascular dementia -NIDDM type II; A1c-5.3; Accuchecks, ISS, hypoglycemia precautions. DM complicated by nephropathy, PVD, neuropathy -Hypothyroidism; on levothyroxine, TSH wnl -NPO -DVT ppx not needed as on Eliquis -Dispo: Martir Stark -Code status: FULL code -Transfer to ICU in light of clinical decompensation and need for closer monitoring. Son Hugo updated over the phone and at bedside. Would like continued aggressive measures at this time. Very guarded prognosis Attestations Medical Necessity Statement*: Patient requires hospitalization for continued management of acute renal impairment, decreased urine output, septic shock requiring pressor support. Time Spent in Patient Care: Greater than 35 minutes (>than 50% of time spent in counselling and/or direct pt care on unit). Critical Care Time: The high probability of a clinically significant, sudden or life threatening deterioration of the patient's [cardiovascular, respiratory, renal] system(s) required my full and direct attention, intervention and personal management. The critical care time is as shown. This time is in addition to time spent performing any reported procedures but includes the following: [x] Data and vital sign review and interpretation [x] Patient assessment, examination and intervention [x] Documentation [x] Medication orders and management Critical Care Time (min): 45 Coding Level of Care Code Acute Pump Technician for g Fwd Exam Comprehensive Diagnoses Septic shock A41.9; R65.21 Acute kidney injury superimposed on CKD N17.9; N18.9 Stress-induced cardiomyopathy I51.81 Chronic anemia D64.9 CVA (cerebral vascular accident) I63.9 CVA mechanism: unspecified Elevated troponin level R79.89 Intermittent atrial fibrillation I48.0 Acute metabolic encephalopathy G93.41 Hypotension I95.9 Hypotension type: unspecified hypotension type
[2020-05-25] MEDS: multivitamin therapeutic Tablet 1 TAB PO (09:38)
[2020-05-25] MEDS: venlafaxine ER (24HR) 150 mg Capsule PO (09:38)
[2020-05-25] MEDS: sennosides-docusate Tablet 1 TAB PO (09:38)
[2020-05-25] MEDS: atorvastatin 40 mg Tablet PO (09:38)
[2020-05-25] MEDS: apixaban 5 mg Tablet PO (09:38)
[2020-05-25] MEDS: levothyroxine 125 mcg Tablet PO (09:38)
[2020-05-25] MEDS: ARIPiprazole 10 mg Tablet 5 MG PO (09:38)
[2020-05-25] MEDS: metoprolol tartrate 50 mg Tablet PO (09:39)
--- NOTE | 2020-05-25 10:01 | PC.NURSE ---
PATIENT REFUSES TELEMETRY. TELEMETRY HAS BEEN REAPPLIED MULTIPLE TIMES THIS SHIFT ALREADY, AND PATIENT CONTINUES TO PULL OF HER TELEMETRY LEADS DESPITE EDUCATION AND REDIRECTION.
--- NOTE | 2020-05-25 12:04 | PC.OT ---
Patient on hold this date per nursing and is being transferred to ICU.
[2020-05-25 12:11] LABS: Glucose Point of Care 97 mg/dL (70-110)
[2020-05-25] MEDS: bumetanide 0.25 mg/mL SDV 10 mL 1 MG IV (12:42)
[2020-05-25 13:35] LABS: Blood Urea Nitrogen 22 mg/dL (8-23); Chloride 106 mmol/L (98-107); Sodium 140 mmol/L (136-145)
[2020-05-25 13:36] LABS: Calcium 8.2 mg/dL (8.5-10.5); Glucose 82 mg/dL (65-115); Osmolality Calculated 286 mOsm/kg (285-295)
[2020-05-25 13:47] LABS: Carbon Dioxide 7 mmol/L (22-29)
--- NOTE | 2020-05-25 13:50 | PC.NURSE ---
1350 recd. from [facility] per bed, with bipap in place on 40% fio2
[2020-05-25] MEDS: linezolid premix 600 MG/300 ML PREMIX 300 MG IV (13:52)
--- NOTE | 2020-05-25 13:56 | PC.NURSE ---
PATIENT TRANSFERRED TO ICU. PATIENT SON, JAVIER, NOTIFIED OF PATIENT TRANSFER AND UPDATE OF PATIENT CONDITION. NO QUESTIONS OR COMPLAINTS AT THIS TIME. REPORT GIVEN TO ILA WISEMAN, ICU.
[2020-05-25 14:01] LABS: ABG PCO2 27.1 mmHg (35-45); Alveolar-Arterial Oxygen Gradi 6.8 mmHg (5-10); Arterial Blood Gas Hematocrit 29.9 % (37-47); Base Excess ABG -18.6 mmol/L (-2.0-2.0); Blood Gas Allen Test Pos; Blood Gas Operator Identificat BD; Blood Gas Sample Site Brachial, right; Blood Gas Sample Type Arterial; Carboxyhemoglobin 0.4 %THgb (0.4-20.1); HCO3 ABG 9.1 mmol/L (22-26); HGB O2 Sat 97.9 % (95-100); Ionized Calcium Level - ABG 1.2 mmol/L (1.1-1.4); Methemoglobin 1.1 % (0.4-1.5); Oxygen Device BIPAP; Oxygen Saturation ABG 99.3; Potassium Level - ABG 4.9 mmol/L (3.5-5.0); Total Hemoglobin 9.8 g/dL (12-16)
[2020-05-25] MEDS: dextrose 5 % 500 ML 100 ML IV (14:15)
[2020-05-25 14:22] LABS: ABG PH Result 7.13 (7.35-7.45)
--- NOTE | 2020-05-25 15:37 | PC.NURSE ---
continues to pull at covers and lines. hit hand on bed causing skin tear across top of left hand. optifoam applied.
--- NOTE | 2020-05-25 16:13 | P.CONIM_ITS ---
Providers/Reason For Consult Consulting Physican/Specialty*: rolando field md/ telenephrology Reason for Consult*: PERRY/ metabolic acidosis Attending Physician: Milagros Mcpherson MD History of Present Illness History of Present Illness Leatha Emery is a 69 year old female recent hospitalization for VRE bacteremia. h/o ESBL UTI's, real dep. h/o CVA residual left sided weakness. h/o dm, copd, ans anemia. Pt was admitted from rehab w/ AMS- found to be in a fib- was seen by neuro and no TPA, decided to give eliquis. Pt developed a new low EF- felt to be stress induced. ( i believe she had recent normal cardiac cath). Pt was treated here w/ ivf, abx, and a/c. she had a debridement of her heel by Dr. Russo on 05/21. by 05/24/20- she was found to have oliguric renal failure. given ivf and no help. now w/ inc AGMA, hyperkalemia and PERRY and renal called. pt moved to ICU for bipap. Review of Systems General: Reports: ROS unobtainable due to mental status Narrative: fighting bipap, confused, not verbal Meds/Allergies Home Medications and Allergies Home Medications Medication Instructions Recorded Confirmed Last Taken Type acetaminophen 650 mg PO Q6H PRN 05/22/20 05/22/20 Unknown History aripiprazole 5 mg PO BID 05/22/20 05/22/20 Unknown History aspirin 81 mg PO DAILY 05/22/20 05/22/20 Unknown History atorvastatin 40 mg PO DAILY 05/22/20 05/22/20 Unknown History cyclobenzaprine 5 mg PO TID PRN 05/22/20 05/22/20 Unknown History fluticasone furoate-vilanterol 1 inh INHALATION DAILY 05/22/20 05/22/20 Unknown History [Breo Ellipta] furosemide [Lasix] 40 mg PO DAILY 05/22/20 05/22/20 Unknown History insulin aspart U-100 See Rx Instructions .ROUTE .COMPLEX 05/22/20 05/22/20 Unknown History levothyroxine 125 mcg PO DAILY 05/22/20 05/22/20 Unknown History linezolid 600 mg PO BID 05/22/20 05/22/20 Unknown History metoprolol tartrate 50 mg PO BID 05/22/20 05/22/20 Unknown History mirtazapine 45 mg PO BEDTIME 05/22/20 05/22/20 Unknown History multivitamin 1 tab PO DAILY 05/22/20 05/22/20 Unknown History nystatin 1 applic TOPICAL BID 05/22/20 05/22/20 Unknown History oxycodone-acetaminophen [Percocet] 1 tab PO Q4H PRN 05/22/20 05/22/20 Unknown History pantoprazole 40 mg PO DAILY 05/22/20 05/22/20 Unknown History msemjlrhc-ibevvlqp-mnuti-w.pet 1 applic NM BID PRN 05/22/20 05/22/20 Unknown History [Hemorrhoidal Cream] polyethylene glycol 3350 17 g PO DAILY PRN 05/22/20 05/22/20 Unknown History senna 8.6 mg PO BID 05/22/20 05/22/20 Unknown History simvastatin 20 mg PO BEDTIME 05/22/20 05/22/20 Unknown History venlafaxine 150 mg PO DAILY 05/22/20 05/22/20 Unknown History Allergies Allergy/AdvReac Type Severity Reaction Status Date / Time clarithromycin Allergy Unknown Unknown Verified 04/16/20 14:33 hydrocodone Allergy Unknown Unknown Verified 04/16/20 14:33 metformin Allergy Unknown Unknown Verified 04/16/20 14:33 sitagliptin [From Januvia] Allergy Unknown Unknown Verified 04/16/20 14:33 tetanus and diphtheria Allergy Unknown Unknown Verified 04/16/20 14:33 toxoids triamcinolone Allergy Unknown Unknown Verified 04/16/20 14:33 Current Medications Current Medications Generic Name Dose Route Start Last Admin Trade Name Freq PRN Reason Stop Dose Admin Acetaminophen 650 mg 05/21/20 12:11 05/21/20 14:44 Tylenol PO 650 mg QID PRN Administration Pain Aripiprazole 5 mg 05/22/20 18:00 05/25/20 09:38 Abilify PO 5 mg BID SWATI Administration Atorvastatin Calcium 40 mg 05/21/20 13:00 05/25/20 09:38 Lipitor PO 40 mg DAILY SWATI Administration Collagenase 1 applic 05/24/20 17:00 05/25/20 09:38 Santyl TOPICAL 1 applic DAILY SWATI Administration Dextrose 500 mls @ 100 mls/hr 05/21/20 13:50 05/25/20 14:15 D5w IV 100 mls/hr ONCE PRN Administration Adult Acute Hypoglycemia Prot Protocol Sodium Chloride 1,000 mls @ 100 mls/hr 05/24/20 15:30 05/25/20 02:34 Sodium Chloride 0.9% IV 100 mls/hr .Q10H SWATI Administration Linezolid 600 mg in 300 mls @ 300 mls/hr 05/25/20 14:00 05/25/20 15:24 Zyvox Premix IV Infused Q12H SWATI Infusion Protocol Insulin Aspart 0 unit 05/21/20 18:00 05/25/20 12:23 Novolog SUBCUT Not Given TIDWM [facility] Protocol Levothyroxine Sodium 125 mcg 05/21/20 14:00 05/25/20 09:38 Synthroid PO 125 mcg DAILY SWATI Administration Metoprolol Tartrate 50 mg 05/21/20 18:00 05/25/20 09:39 Lopressor PO 50 mg BID SWATI Administration Multivitamins Therapeutic 1 tab 05/22/20 09:00 05/25/20 09:38 Multivitamin Tab PO 1 tab DAILY SWATI Administration Neomycin/Polymyxin/Bacitracin 1 applic 05/21/20 14:33 05/21/20 15:58 Neosporin Oint Tube TOPICAL 1 applic BID PRN Administration with dressing changes Ondansetron HCl 4 mg 05/21/20 12:11 05/21/20 16:34 Zofran PO 4 mg TID PRN Administration Nausea Oxycodone/Acetaminophen 1 tab 05/22/20 16:52 05/25/20 01:41 Percocet 5-325 Mg PO 1 tab Q4H PRN Administration Pain Senna/Docusate Sodium 1 tab 05/22/20 09:00 05/25/20 09:38 Senna-S PO 1 tab DAILY SWATI Administration Venlafaxine HCl 150 mg 05/23/20 09:00 05/25/20 09:38 Effexor Xr PO 150 mg DAILY SWATI Administration PFSH Acute PFSH: Medical History Chronic kidney disease, stage 3 COPD (chronic obstructive pulmonary disease) Diabetic nephropathy Hypertension Hypothyroidism Leg ulcer, left PVD (peripheral vascular disease) Sleep apnea Type 2 diabetes mellitus Vascular dementia Surgical History History of bilateral knee arthroplasty S/P breast lumpectomy Family History Father Diabetes Hypertension Mother CAD (coronary artery disease) Hypertension Social History Smoking and tobacco status: never smoked Alcohol intake: never Household members: other Housing: Assisted Current gender identity: Female Additional social history: -lives at [facility] [place] Vitals/I&O/Wt Last Vital Signs Temp 98.1 F 05/25/20 12:00 Pulse 96 05/25/20 15:03 Resp 14 05/25/20 12:00 BP 123/72 05/25/20 12:00 Pulse Ox 97 05/25/20 15:03 05/25/20 05/25/20 05/25/20 06:59 14:59 22:59 Intake Total 918.333 / 1928.333 300 / 300 Output Total 100 / 270 Balance 818.333 / 1658.333 300 / 300 Weight last 48 hrs Weight 121.472 kg Physical Exam Narrative: EXAM NARRATIVE: vs noted- afebrile hr 100 bp 123/72 rr 20 on bipap sat 97% exam per rn heent- nc/at, bipap lungs clear heart irreg irreg abd soft, + bs, nt ext legs swollen w/ lesions on left leg neuro- not verbal, moving A&P Additional A&P Information 69 year old female A fib, cva hx, dm, obesity, recent VRE bacteremia and ESBL UTI, and COPD. pt now w/ severe inc AGMA and PERRY 1. inc AGMA- likely sepsis- check lacatate -assess for infection -when stable- consider non contrast abd exam -q embolic disease to abdomen/ intestines and intestinal ischemia -concern for sepsis from heel infection- s/p debridement on 05/21/20 -as acidotic and oligo-anuric- will arrange for emergent HD for 2.5 hrs, 2 k bath, no fluid removal -Dr. Vela to place a dialysis cathetr -note she is on full dose eliquis 2. PERRY- likely atn -u/a hazy, 1 + prot, 3+ blood. 15-25 wbc- Q UTI -no ur eos -low ur na- she did not respond to ivf -concern for embolic disease- would need to be b/l -renal us w/o hydro -check cpk -emergent hd -monitor uop and chemistries 3. cva and a fib per medicine and neuro 4. agree w/ boad spectrum abx 5. check tsh prognosis is guarded discussed w/ Dr. Mcpherson and LOAN WORKOUT OFFICER may need to be intubated soon Consult Attestations Medical Necessity Statement: perry, metabolic acidosis Time Spent in Patient Care: Greater than 35 minutes Critical Care Time: Critical Care Time (min): 50 Coding Level of Care Code Acute Office Assistant for Darek Ojeda
--- NOTE | 2020-05-25 16:20 | CTR_ITS ---
PROCEDURE INFORMATION: Exam: CT Chest Without Contrast Exam date and time: 05/25/2020 4:22 PM Age: 69 years old Clinical indication: Other: Acidosis; Other: Intubated; Prior surgery; Surgery date: 6+ months; Surgery type: Dialysis cath; Additional info: Acidosis, altered mental status, clinical deterioration TECHNIQUE: Imaging protocol: Computed tomography of the chest without contrast. Radiation optimization: All CT scans at this facility use at least one of these dose optimization techniques: automated exposure control; mA and/or kV adjustment per patient size (includes targeted exams where dose is matched to clinical indication); or iterative reconstruction. COMPARISON: No relevant prior studies available. RADIATION DOSE METRICS: Total DLP (mGy-cm): 2740.79 FINDINGS: Tubes, catheters and devices: Termination of endotracheal tube 2.5 cm above the brynn. Termination of central venous catheter at the cavoatrial junction. Lungs: Interstitial prominence, chronic granulomatous disease, and asymmetric dependent bibasilar airspace disease. Pleural space: Moderate-sized bilateral pleural effusions. Heart: Cardiomegaly, coronary artery calcification, and small pericardial effusion. Mediastinal space: 5.8 cm right paraesophageal hernia. Aorta: Ectasia of the thoracic aorta. Lymph nodes: Subcentimeter lymph nodes. Bones/joints: Healing fracture of the left 10th rib. Osteopenia and degenerative change. Soft tissues: Subcutaneous edema. IMPRESSION: 1. Interstitial prominence, chronic granulomatous disease, and asymmetric dependent bibasilar airspace disease. 2. Moderate-sized bilateral pleural effusions. 3. 5.8 cm right paraesophageal hernia. 4. Additional findings as described above. PROCEDURE INFORMATION: Exam: CT Abdomen And Pelvis Without Contrast Exam date and time: 05/25/2020 4:22 PM Age: 69 years old Clinical indication: Other: Acidosis; Other: Intubated; Prior surgery; Surgery date: 6+ months; Surgery type: Dialysis cath; Additional info: Acidosis, altered mental status, clinical deterioration TECHNIQUE: Imaging protocol: Computed tomography of the abdomen and pelvis without contrast. Radiation optimization: All CT scans at this facility use at least one of these dose optimization techniques: automated exposure control; mA and/or kV adjustment per patient size (includes targeted exams where dose is matched to clinical indication); or iterative reconstruction. COMPARISON: No relevant prior studies available. RADIATION DOSE METRICS: Total DLP (mGy-cm): 2740.79 FINDINGS: Evaluation is limited by motion and beam hardening artifacts along with absence of contrast. Tubes, catheters and devices: Right femoral venous catheter terminates in the right common iliac vein. Liver: No focal hepatic mass. Gallbladder and bile ducts: Status post cholecystectomy. Pancreas: Pancreatic atrophy. Spleen: No splenomegaly. Adrenals: Unremarkable adrenals. Kidneys and ureters: Left renal scarring. No hydronephrosis. Stomach and bowel: Prominent stool in a pattern of constipation and impending fecal impaction. The dilated stool-filled rectum measures 6.7 cm in diameter. Appendix: Appendix not visualized. Intraperitoneal space: No significant free fluid. Vasculature: Normal caliber of the abdominal aorta. Lymph nodes: Subcentimeter lymph nodes. Bladder: Patino catheter in the decompressed bladder. Reproductive: Status post hysterectomy. Bones/joints: Osteopenia and degenerative change. L5 spondylolysis and 15 mm anterolisthesis of L5 on S1. Soft tissues: Laxity of the anterior abdominal wall musculature. Subcutaneous edema. Injection granulomata. CT/CT chest abd pel wo con IMPRESSION: 1. No acute inflammatory process in the visualized abdomen or pelvis. 2. Prominent stool in a pattern of constipation and impending fecal impaction. The dilated stool-filled rectum measures 6.7 cm in diameter. 3. Additional findings as described above. Radiation Dose CTDIVOL = (mGy): DLP = 2740.79~2740.79 (mGy-cm)
--- NOTE | 2020-05-25 16:51 | P.ANESASSM_ITS ---
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 Proposed Procedure: temporary dialysis catheter Pulmonary: Pulmonary: COPD CV/HEM: CV/HEM: Afib, Anemia and CA Comments: echo 05/21 - EF 30-35% : : Chronic renal Insufficiency Comments: PERRY Metabolic: Metabolic: DM and Thyroid Comments: Metabolic acidosis Neuropsych: Neuropsych: CVA, Dementia and Neuropathy Anesthetic Plan: ASA status: 4E Anesthesia: Nurse-admin mod sedation Other: MAC as backup Risk of > 500 ml blood loss (7ml/kg in children): No Meds/Allergies Current Medications: Current Medications Generic Name Dose Route Start Last Admin Trade Name Freq PRN Reason Stop Dose Admin Acetaminophen 650 mg 05/21/20 12:11 05/21/20 14:44 Tylenol PO 650 mg QID PRN Administration Pain Aripiprazole 5 mg 05/22/20 18:00 05/25/20 09:38 Abilify PO 5 mg BID SWATI Administration Atorvastatin Calci um 40 mg 05/21/20 13:00 05/25/20 09:38 Lipitor PO 40 mg DAILY SWATI Administration Collagenase 1 applic 05/24/20 17:00 05/25/20 09:38 Santyl TOPICAL 1 applic DAILY SWATI Administration Dextrose 500 mls @ 100 mls /hr 05/21/20 13:50 05/25/20 14:15 D5w IV 100 mls/hr ONCE PRN Administration Adult Acute Hypog lycemia Prot Protocol Sodium Chloride 1,000 mls @ 100 m ls/hr 05/24/20 15:30 05/25/20 02:34 Sodium Chloride 0.9% IV 100 mls/hr .Q10H SWATI Administration Linezolid 600 mg in 300 mls @ 300 mls/hr 05/25/20 14:00 05/25/20 15:24 Zyvox Premix IV Infused Q12H SWATI Infusion Protocol Insulin Aspart 0 unit 05/21/20 18:00 05/25/20 12:23 Novolog SUBCUT Not Given TIDWM [facility] Protocol Levothyroxine Sodi um 125 mcg 05/21/20 14:00 05/25/20 09:38 Synthroid PO 125 mcg DAILY SWATI Administration Metoprolol Tartrat e 50 mg 05/21/20 18:00 05/25/20 09:39 Lopressor PO 50 mg BID SWATI Administration Multivitamins Ther apeutic 1 tab 05/22/20 09:00 05/25/20 09:38 Multivitamin Tab PO 1 tab DAILY SWATI Administration Neomycin/Polymyxin /Bacitracin 1 applic 05/21/20 14:33 05/21/20 15:58 Neosporin Oint T ube TOPICAL 1 applic BID PRN Administration with dressing walter nges Ondansetron HCl 4 mg 05/21/20 12:11 05/21/20 16:34 Zofran PO 4 mg TID PRN Administration Nausea Oxycodone/Acetamin ophen 1 tab 05/22/20 16:52 05/25/20 01:41 Percocet 5-325 M g PO 1 tab Q4H PRN Administration Pain Senna/Docusate Sod ium 1 tab 05/22/20 09:00 05/25/20 09:38 Senna-S PO 1 tab DAILY SWATI Administration Venlafaxine HCl 150 mg 05/23/20 09:00 05/25/20 09:38 Effexor Xr PO 150 mg DAILY SWATI Administration Additional Medication Information: Active Medications Generic Name Dose Route Start Last Admin Trade Name Freq PRN Reason Stop Dose Admin Acetaminophen 650 mg 05/21/20 12:11 05/21/20 14:44 Tylenol PO 650 mg QID PRN Administration Pain Apixaban 5 mg 05/23/20 12:35 05/24/20 18:39 Eliquis PO Not Given BID SWATI Aripiprazole 5 mg 05/22/20 18:00 05/24/20 18:40 Abilify PO Not Given BID SWATI Atorvastatin Calci um 40 mg 05/21/20 13:00 05/24/20 10:06 Lipitor PO 40 mg DAILY SWATI Administration Collagenase 1 applic 05/24/20 17:00 05/25/20 02:33 Santyl TOPICAL 1 applic DAILY SWATI Administration Dextrose 25 ml 05/21/20 13:50 D50w IVP ONCE PRN hypoglycemia prot ocol Protocol Dextrose 50 ml 05/21/20 13:50 D50w IVP PRN PRN hypoglycemia prot ocol Protocol Glucagon 1 mg 05/21/20 13:50 Glucagen IM ONCE PRN Adult Acute Hypog lycemia Prot. Protocol Dextrose 500 mls @ 100 mls /hr 05/21/20 13:50 D5w IV ONCE PRN Adult Acute Hypog lycemia Prot Protocol Sodium Chloride 1,000 mls @ 100 m ls/hr 05/24/20 15:30 05/25/20 02:34 Sodium Chloride 0.9% IV 100 mls/hr .Q10H SWATI Administration Insulin Aspart 0 unit 05/21/20 18:00 05/25/20 07:45 Novolog SUBCUT Not Given TIDWM [facility] Protocol Levothyroxine Sodi um 125 mcg 05/21/20 14:00 05/24/20 10:06 Synthroid PO 125 mcg DAILY SWATI Administration Linezolid 600 mg 05/21/20 13:00 05/25/20 01:40 Zyvox Tablet PO 600 mg Q12H SWATI Administration Protocol Magnesium Hydroxid e 30 ml 05/21/20 12:11 Milk Of Magnesia PO DAILY PRN Constipation Metoprolol Tartrat e 50 mg 05/21/20 18:00 05/24/20 18:40 Lopressor PO Not Given BID [facility] Multivitamins Ther apeutic 1 tab 05/22/20 09:00 05/24/20 10:05 Multivitamin Tab PO 1 tab DAILY SWATI Administration Neomycin/Polymyxin /Bacitracin 1 applic 05/21/20 14:33 05/21/20 15:58 Neosporin Oint T ube TOPICAL 1 applic BID PRN Administration with dressing walter nges Non-Formulary Medi cation 1 inh 05/23/20 09:00 Fluticasone Furo ate-Vilanterol [Br eo Ellipta] INHALATION DAILY [facility] Ondansetron HCl 4 mg 05/21/20 12:11 05/21/20 16:34 Zofran PO 4 mg TID PRN Administration Nausea Oxycodone/Acetamin ophen 1 tab 05/22/20 16:52 05/25/20 01:41 Percocet 5-325 M g PO 1 tab Q4H PRN Administration Pain Senna/Docusate Sod ium 1 tab 05/22/20 09:00 05/24/20 10:06 Senna-S PO 1 tab DAILY SWATI Administration Venlafaxine HCl 150 mg 05/23/20 09:00 05/24/20 10:04 Effexor Xr PO 150 mg DAILY SWATI Administration clarithromycin Allergy (Unknown, Verified 04/16/20 14:33) Unknown hydrocodone Allergy (Unknown, Verified 04/16/20 14:33) Unknown metformin Allergy (Unknown, Verified 04/16/20 14:33) Unknown sitagliptin [From Januvia] Allergy (Unknown, Verified 04/16/20 14:33) Unknown tetanus and diphtheria toxoids Allergy (Unknown, Verified 04/16/20 14:33) Unknown triamcinolone Allergy (Unknown, Verified 04/16/20 14:33) Unknown PFSH Anesthesia PFSH: Medical History Chronic kidney disease, stage 3 COPD (chronic obstructive pulmonary disease) Diabetic nephropathy Hypertension Hypothyroidism Leg ulcer, left PVD (peripheral vascular disease) Sleep apnea Type 2 diabetes mellitus Vascular dementia Surgical History History of bilateral knee arthroplasty S/P breast lumpectomy Family History Father Diabetes Hypertension Mother CAD (coronary artery disease) Hypertension Social History Smoking and tobacco status: never smoked Alcohol intake: never Household members: other 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 Current gender identity: Female Additional social history: -lives at [facility] Data Anesthesia CBC & Chem 7: 05/25/20 06:45 05/25/20 12:37 Other Labs: Laboratory Results - last 48 hr 05/23/20 05/23/20 05/24/20 16:48 20:18 04:05 WBC 11.8 H RBC 3.13 L Hgb 8.9 L Hct 29.2 L MCV 93.3 MCH 28.4 MCHC 30.5 RDW 19.6 H Plt Count 345 MPV 9.6 Neut % (Auto) 61.1 Lymph % (Auto) 28.4 [place] % (Auto) 5.5 Eos % (Auto) 4.0 Baso % (Auto) 0.3 Neut # (Auto) 7.21 Lymph # (Auto) 3.3 [place] # (Auto) 0.7 Eos # (Auto) 0.5 Baso # (Auto) 0.0 Nucleated RBC % (auto) 0 Nucleated RBCs # 0.0 PT INR D-Dimer Specimen Type Sample Site ABG pH ABG pCO2 ABG pO2 ABG HCO3 ABG O2 Saturation ABG Base Excess Ash Test A-a O2 Gradient Hematocrit Hgb O2 Saturation Carboxyhemoglobin Methemoglobin Total Hemoglobin Ionized Calcium O2 Delivery Device FiO2 Emergency Department Manager ID Sodium Potassium Chloride Carbon Dioxide Anion Gap BUN Creatinine GFR Calculation Glucose POC Glucose 98 133 Calculated Osmolality Calcium Phosphorus Magnesium Total Bilirubin AST ALT Alkaline Phosphatase C-Reactive Protein Total Protein Albumin Globulin Procalcitonin Urine Color Urine Appearance Urine pH Ur Specific Brule Urine Protein Urine Glucose (UA) Urine Ketones Urine Blood Urine Nitrate Urine Bilirubin Urine Urobilinogen Ur Leukocyte Esterase Urine RBC Urine WBC Ur Eosinophil Smear Ur Squamous Epith Cells Amorphous Sediment Urine Bacteria Hyaline Casts Urine Mucus Urine Eosinophils Ur Random Sodium Ur Random Potassium Ur Random Chloride Urine Creatinine 05/24/20 05/24/20 05/24/20 04:05 04:05 04:05 WBC RBC Hgb Hct MCV MCH MCHC RDW Plt Count MPV Neut % (Auto) Lymph % (Auto) [place] % (Auto) Eos % (Auto) Baso % (Auto) Neut # (Auto) Lymph # (Auto) [place] # (Auto) Eos # (Auto) Baso # (Auto) Nucleated RBC % (auto) Nucleated RBCs # PT 21.00 H D INR 1.75 H D-Dimer Specimen Type Sample Site ABG pH ABG pCO2 ABG pO2 ABG HCO3 ABG O2 Saturation ABG Base Excess Ash Test A-a O2 Gradient Hematocrit Hgb O2 Saturation Carboxyhemoglobin Methemoglobin Total Hemoglobin Ionized Calcium O2 Delivery Device FiO2 Emergency Department Manager ID Sodium 136 Potassium 4.6 Chloride 106 Carbon Dioxide 18 L Anion Gap 16.6 BUN 17 Creatinine 1.7 H GFR Calculation Not Reportable Glucose 105 POC Glucose Calculated Osmolality 279 L Calcium 7.4 L Phosphorus 4.0 Magnesium 1.8 Total Bilirubin 0.2 AST 22 ALT 17 Alkaline Phosphatase 137 H C-Reactive Protein 126.1 H Total Protein 5.3 L Albumin 2.3 L Globulin 3.0 Procalcitonin 0.40 Urine Color Urine Appearance Urine pH Ur Specific Brule Urine Protein Urine Glucose (UA) Urine Ketones Urine Blood Urine Nitrate Urine Bilirubin Urine Urobilinogen Ur Leukocyte Esterase Urine RBC Urine WBC Ur Eosinophil Smear Ur Squamous Epith Cells Amorphous Sediment Urine Bacteria Hyaline Casts Urine Mucus Urine Eosinophils Ur Random Sodium Ur Random Potassium Ur Random Chloride Urine Creatinine 05/24/20 05/24/20 05/24/20 06:42 11:48 13:20 WBC RBC Hgb Hct MCV MCH MCHC RDW Plt Count MPV Neut % (Auto) Lymph % (Auto) [place] % (Auto) Eos % (Auto) Baso % (Auto) Neut # (Auto) Lymph # (Auto) [place] # (Auto) Eos # (Auto) Baso # (Auto) Nucleated RBC % (auto) Nucleated RBCs # PT INR D-Dimer Specimen Type Sample Site ABG pH ABG pCO2 ABG pO2 ABG HCO3 ABG O2 Saturation ABG Base Excess Ash Test A-a O2 Gradient Hematocrit Hgb O2 Saturation Carboxyhemoglobin Methemoglobin Total Hemoglobin Ionized Calcium O2 Delivery Device FiO2 Emergency Department Manager ID Sodium Potassium Chloride Carbon Dioxide Anion Gap BUN Creatinine GFR Calculation Glucose POC Glucose 93 104 Calculated Osmolality Calcium Phosphorus Magnesium Total Bilirubin AST ALT Alkaline Phosphatase C-Reactive Protein Total Protein Albumin Globulin Procalcitonin Urine Color Urine Appearance Urine pH Ur Specific Brule Urine Protein Urine Glucose (UA) Urine Ketones Urine Blood Urine Nitrate Urine Bilirubin Urine Urobilinogen Ur Leukocyte Esterase Urine RBC Urine WBC Ur Eosinophil Smear 0 Ur Squamous Epith Cells Amorphous Sediment Urine Bacteria Hyaline Casts Urine Mucus Urine Eosinophils No eosinophils seen Ur Random Sodium Ur Random Potassium Ur Random Chloride Urine Creatinine 05/24/20 05/24/20 05/24/20 13:20 13:20 16:45 WBC RBC Hgb Hct MCV MCH MCHC RDW Plt Count MPV Neut % (Auto) Lymph % (Auto) [place] % (Auto) Eos % (Auto) Baso % (Auto) Neut # (Auto) Lymph # (Auto) [place] # (Auto) Eos # (Auto) Baso # (Auto) Nucleated RBC % (auto) Nucleated RBCs # PT INR D-Dimer Specimen Type Sample Site ABG pH ABG pCO2 ABG pO2 ABG HCO3 ABG O2 Saturation ABG Base Excess Ash Test A-a O2 Gradient Hematocrit Hgb O2 Saturation Carboxyhemoglobin Methemoglobin Total Hemoglobin Ionized Calcium O2 Delivery Device FiO2 Emergency Department Manager ID Sodium Potassium Chloride Carbon Dioxide Anion Gap BUN Creatinine GFR Calculation Glucose POC Glucose 105 Calculated Osmolality Calcium Phosphorus Magnesium Total Bilirubin AST ALT Alkaline Phosphatase C-Reactive Protein Total Protein Albumin Globulin Procalcitonin Urine Color Straw Urine Appearance Hazy A Urine pH 5 Ur Specific Brule 1.015 Urine Protein 1+ H Urine Glucose (UA) Norm Urine Ketones Negative Urine Blood 3+ H Urine Nitrate Negative Urine Bilirubin Neg Urine Urobilinogen Norm Ur Leukocyte Esterase 2+ H Urine RBC 5-10 H Urine WBC 15-25 H Ur Eosinophil Smear Ur Squamous Epith Cells Rare Amorphous Sediment Not Reportable Urine Bacteria 2+ H Hyaline Casts 5-10 H Urine Mucus 1+ Urine Eosinophils Ur Random Sodium 24 Ur Random Potassium 26 Ur Random Chloride 33 Urine Creatinine 83 05/24/20 05/25/20 05/25/20 21:36 06:13 06:45 WBC 15.0 H RBC 3.06 L Hgb 9.0 L Hct 29.7 L MCV 97.1 MCH 29.4 MCHC 30.3 RDW 19.8 H Plt Count 380 MPV 9.3 Neut % (Auto) 71.4 Lymph % (Auto) 22.8 [place] % (Auto) 4.4 Eos % (Auto) 0.4 Baso % (Auto) 0.4 Neut # (Auto) 10.74 H Lymph # (Auto) 3.4 [place] # (Auto) 0.7 Eos # (Auto) 0.1 Baso # (Auto) 0.1 Nucleated RBC % (auto) 0 Nucleated RBCs # 0.0 PT INR D-Dimer Specimen Type Sample Site ABG pH ABG pCO2 ABG pO2 ABG HCO3 ABG O2 Saturation ABG Base Excess Ash Test A-a O2 Gradient Hematocrit Hgb O2 Saturation Carboxyhemoglobin Methemoglobin Total Hemoglobin Ionized Calcium O2 Delivery Device FiO2 Emergency Department Manager ID Sodium Potassium Chloride Carbon Dioxide Anion Gap BUN Creatinine GFR Calculation Glucose POC Glucose 98 77 Calculated Osmolality Calcium Phosphorus Magnesium Total Bilirubin AST ALT Alkaline Phosphatase C-Reactive Protein Total Protein Albumin Globulin Procalcitonin Urine Color Urine Appearance Urine pH Ur Specific Brule Urine Protein Urine Glucose (UA) Urine Ketones Urine Blood Urine Nitrate Urine Bilirubin Urine Urobilinogen Ur Leukocyte Esterase Urine RBC Urine WBC Ur Eosinophil Smear Ur Squamous Epith Cells Amorphous Sediment Urine Bacteria Hyaline Casts Urine Mucus Urine Eosinophils Ur Random Sodium Ur Random Potassium Ur Random Chloride Urine Creatinine 05/25/20 05/25/20 05/25/20 06:45 08:22 11:43 WBC RBC Hgb Hct MCV MCH MCHC RDW Plt Count MPV Neut % (Auto) Lymph % (Auto) [place] % (Auto) Eos % (Auto) Baso % (Auto) Neut # (Auto) Lymph # (Auto) [place] # (Auto) Eos # (Auto) Baso # (Auto) Nucleated RBC % (auto) Nucleated RBCs # PT INR D-Dimer 2.45 H Specimen Type Sample Site ABG pH ABG pCO2 ABG pO2 ABG HCO3 ABG O2 Saturation ABG Base Excess Ash Test A-a O2 Gradient Hematocrit Hgb O2 Saturation Carboxyhemoglobin Methemoglobin Total Hemoglobin Ionized Calcium O2 Delivery Device FiO2 Emergency Department Manager ID Sodium 138 Potassium 4.9 Chloride 108 H Carbon Dioxide 8 L* Anion Gap 26.9 H BUN 17 Creatinine 2.3 H GFR Calculation Not Reportable Glucose 97 POC Glucose 97 Calculated Osmolality 282 L Calcium 8.0 L Phosphorus 4.9 H Magnesium 1.8 Total Bilirubin 0.4 AST 23 ALT 14 Alkaline Phosphatase 152 H C-Reactive Protein Total Protein 6.1 L Albumin 2.4 L Globulin 3.7 Procalcitonin Urine Color Urine Appearance Urine pH Ur Specific Brule Urine Protein Urine Glucose (UA) Urine Ketones Urine Blood Urine Nitrate Urine Bilirubin Urine Urobilinogen Ur Leukocyte Esterase Urine RBC Urine WBC Ur Eosinophil Smear Ur Squamous Epith Cells Amorphous Sediment Urine Bacteria Hyaline Casts Urine Mucus Urine Eosinophils Ur Random Sodium Ur Random Potassium Ur Random Chloride Urine Creatinine 05/25/20 05/25/20 12:37 13:48 WBC RBC Hgb Hct MCV MCH MCHC RDW Plt Count MPV Neut % (Auto) Lymph % (Auto) [place] % (Auto) Eos % (Auto) Baso % (Auto) Neut # (Auto) Lymph # (Auto) [place] # (Auto) Eos # (Auto) Baso # (Auto) Nucleated RBC % (auto) Nucleated RBCs # PT INR D-Dimer Specimen Type Arterial Sample Site Brachial, right ABG pH 7.13 L* ABG pCO2 27.1 L ABG pO2 194.0 H ABG HCO3 9.1 L ABG O2 Saturation 99.3 ABG Base Excess -18.6 L Ash Test Pos A-a O2 Gradient 6.8 Hematocrit 29.9 L Hgb O2 Saturation 97.9 Carboxyhemoglobin 0.4 Methemoglobin 1.1 Total Hemoglobin 9.8 L Ionized Calcium 1.2 O2 Delivery Device Bipap FiO2 40.0 Emergency Department Manager ID Bd Sodium 140 139.0 Potassium 5.0 4.9 Chloride 106 Carbon Dioxide 7 L* Anion Gap 32.0 H BUN 22 Creatinine 2.1 H GFR Calculation Not Reportable Glucose 82 84.0 POC Glucose Calculated Osmolality 286 Calcium 8.2 L Phosphorus Magnesium Total Bilirubin AST ALT Alkaline Phosphatase C-Reactive Protein Total Protein Albumin Globulin Procalcitonin Urine Color Urine Appearance Urine pH Ur Specific Brule Urine Protein Urine Glucose (UA) Urine Ketones Urine Blood Urine Nitrate Urine Bilirubin Urine Urobilinogen Ur Leukocyte Esterase Urine RBC Urine WBC Ur Eosinophil Smear Ur Squamous Epith Cells Amorphous Sediment Urine Bacteria Hyaline Casts Urine Mucus Urine Eosinophils Ur Random Sodium Ur Random Potassium Ur Random Chloride Urine Creatinine Cardiac Studies: No Data to Display
[2020-05-25 17:12] LABS: Add Urine Microscopic? YES; Bilirubin Urine 2+ (NEGATIVE); Blood Urine 3+ (Negative); Glucose Urine UA Norm (Normal); Ketones Urine 1+ (Negative); Leukocyte Esterase Urine 2+ (Negative); Nitrate Urine Negative (Negative); Protein Urine 2+ (Negative); Specific Gravity, Urine 1.025 (1.005-1.030); Urine Appearance Cloudy (CLEAR); Urine Color Yellow (Yellow); Urobilinogen Urine Norm (Negative); pH Urine 5 (5-7)
[2020-05-25 17:14] LABS: Add Urine Culture? Yes; Bacteria Urine 3+; Squamous Epithelial Cell Urine 0-4 (0-5); WBC Urine 25-40 /hpf (0-5)
--- NOTE | 2020-05-25 17:35 | XRR_ITS ---
PROCEDURE INFORMATION: Exam: XR Chest, 1 View Exam date and time: 05/25/2020 6:30 PM Age: 69 years old Clinical indication: Device placement; Other: Dialysis; Additional info: Dialysis cath insertion TECHNIQUE: Imaging protocol: XR of the chest Views: 1 view. COMPARISON: CR XR chest 1V portable [id number] 05/25/2020 6:53 AM FINDINGS: Tubes, catheters and devices: Termination of central venous catheter in the distal superior vena cava. Lungs: Incomplete visualization of the left hemithorax. Pleural space: No right-sided pneumothorax or pleural effusion. Heart/Mediastinum: Borderline cardiomegaly. Bones/joints: Degenerative change. XR/XR chest 1V portable [id number] IMPRESSION: Termination of central venous catheter in the distal superior vena cava.
--- NOTE | 2020-05-25 18:03 | PM.ACPR ---
Procedure/Consent Time out: Time Out Performed: Yes Consent: Consent for Procedure: Consent obtained from other (indicate) (Son) Procedure Narrative: Preoperative diagnosis: Acute renal failure requiring emergent dialysis Postoperative diagnosis: Same Procedure: 1. Placement of Mahurkar temporary dialysis catheter in the right internal jugular vein under ultrasound guidance 2. Ultrasound guidance and interpretation to access the right internal jugular vein Surgeon: Dane Anesthesia: Local/MAC Description of procedure: The patient's right neck and chest was prepped and draped in a sterile manner. An ultrasound of the right internal jugular vein revealed patent veins with no evidence of thrombus. 5 mL of 1% lidocaine was infiltrated at the site of planned entry, an introducer needle was used to access the right internal jugular vein under ultrasound guidance. Guidewire was passed through the introducer needle and the introducer needle was removed. Serial dilators were passed over the guidewire after the skin incision was extended using 11 blade and Mahurkar catheter was then passed over the guidewire and the guidewire was removed. The catheter was sutured to the skin using 2-0 Ethilon suture. Sterile dressings were applied. Postop procedure chest x-ray pending Acute Procedures Epistaxis Control: Time out performed: Yes
--- NOTE | 2020-05-25 18:07 | P.PCN_ITS ---
Procedure/Consent Time out: Time Out Performed: Yes Consent: Consent for Procedure: Consent obtained from patient Procedure Narrative: Preoperative diagnosis: Poor IV access, critically ill requiring central venous access for IV medications Preoperative diagnosis: Poor IV access, critically ill requiring central venous access for IV medications Procedure: 1. Placement of 7 Togolese triple-lumen catheter in the right femoral vein 2. Ultrasound guidance and interpretation to access the right femoral vein Anesthesia: Local/MAC Surgeon: Dr. Vela Description of procedure: The patient's right chest was prepped and draped in a sterile manner. An ultrasound was used to identify the right femoral artery and vein, there was no thrombus identified within the vein. 10 mL of 1% lidocaine was infiltrated under the femoral vein on the right side at the site of planned entry. An introducer needle was used to access the right femoral vein, a guidewire passed through the introducer needle and the needle was removed. Using 11 blade, a skin incision was made at the guidewire entry site. Dilator was passed over the guidewire and a 7 Togolese triple-lumen central venous catheter was passed over the guidewire and the guidewire was removed. The catheter was sutured to the skin at the hub. All 3 ports jordin blood and flushed easily. Sterile dressings applied. Acute Procedures Epistaxis Control: Time out performed: Yes
--- NOTE | 2020-05-25 18:09 | P.CONIM_ITS ---
Providers/Reason For Consult Consulting Physican/Specialty*: Milagros Mcpherson Reason for Consult*: Temporary dialysis catheter and central venous axis Attending Physician: Milagros Mcpherson MD History of Present Illness History of Present Illness Leatha Emery is a 69 year old female with multiple comorbidities, BMI of 46 on Eliquis for A. fib who was recently admitted for IV antibiotics and acute renal failure. Patient has had a central line placed in the past. Nephrology was consulted and they requested a temporary dialysis catheter placement as well as a central venous access since patient had poor peripheral venous axis. Patient information obtained from patient's chart as she is agitated and confused Review of Systems General: Reports: ROS unobtainable due to mental status Meds/Allergies Home Medications and Allergies Home Medications Medication Instructions Recorded Confirmed Last Taken Type acetaminophen 650 mg PO Q6H PRN 05/22/20 05/22/20 Unknown History aripiprazole 5 mg PO BID 05/22/20 05/22/20 Unknown History aspirin 81 mg PO DAILY 05/22/20 05/22/20 Unknown History atorvastatin 40 mg PO DAILY 05/22/20 05/22/20 Unknown History cyclobenzaprine 5 mg PO TID PRN 05/22/20 05/22/20 Unknown History fluticasone furoate-vilanterol 1 inh INHALATION DAILY 05/22/20 05/22/20 Unknown History [Breo Ellipta] furosemide [Lasix] 40 mg PO DAILY 05/22/20 05/22/20 Unknown History insulin aspart U-100 See Rx Instructions .ROUTE .COMPLEX 05/22/20 05/22/20 Unknown History levothyroxine 125 mcg PO DAILY 05/22/20 05/22/20 Unknown History linezolid 600 mg PO BID 05/22/20 05/22/20 Unknown History metoprolol tartrate 50 mg PO BID 05/22/20 05/22/20 Unknown History mirtazapine 45 mg PO BEDTIME 05/22/20 05/22/20 Unknown History multivitamin 1 tab PO DAILY 05/22/20 05/22/20 Unknown History nystatin 1 applic TOPICAL BID 05/22/20 05/22/20 Unknown History oxycodone-acetaminophen [Percocet] 1 tab PO Q4H PRN 05/22/20 05/22/20 Unknown History pantoprazole 40 mg PO DAILY 05/22/20 05/22/20 Unknown History jbslieusu-skgguivz-lmwar-w.pet 1 applic DE BID PRN 05/22/20 05/22/20 Unknown History [Hemorrhoidal Cream] polyethylene glycol 3350 17 g PO DAILY PRN 05/22/20 05/22/20 Unknown History senna 8.6 mg PO BID 05/22/20 05/22/20 Unknown History simvastatin 20 mg PO BEDTIME 05/22/20 05/22/20 Unknown History venlafaxine 150 mg PO DAILY 05/22/20 05/22/20 Unknown History Allergies Allergy/AdvReac Type Severity Reaction Status Date / Time clarithromycin Allergy Unknown Unknown Verified 04/16/20 14:33 hydrocodone Allergy Unknown Unknown Verified 04/16/20 14:33 metformin Allergy Unknown Unknown Verified 04/16/20 14:33 sitagliptin [From Januvia] Allergy Unknown Unknown Verified 04/16/20 14:33 tetanus and diphtheria Allergy Unknown Unknown Verified 04/16/20 14:33 toxoids triamcinolone Allergy Unknown Unknown Verified 04/16/20 14:33 Current Medications Current Medications Generic Name Dose Route Start Last Admin Trade Name Freq PRN Reason Stop Dose Admin Acetaminophen 650 mg 05/21/20 12:11 05/21/20 14:44 Tylenol PO 650 mg QID PRN Administration Pain Aripiprazole 5 mg 05/22/20 18:00 05/25/20 09:38 Abilify PO 5 mg BID SWATI Administration Atorvastatin Calcium 40 mg 05/21/20 13:00 05/25/20 09:38 Lipitor PO 40 mg DAILY SWATI Administration Collagenase 1 applic 05/24/20 17:00 05/25/20 09:38 Santyl TOPICAL 1 applic DAILY SWATI Administration Dextrose 500 mls @ 100 mls/hr 05/21/20 13:50 05/25/20 14:15 D5w IV 100 mls/hr ONCE PRN Administration Adult Acute Hypoglycemia Prot Protocol Sodium Chloride 1,000 mls @ 100 mls/hr 05/24/20 15:30 05/25/20 02:34 Sodium Chloride 0.9% IV 100 mls/hr .Q10H SWATI Administration Linezolid 600 mg in 300 mls @ 300 mls/hr 05/25/20 14:00 05/25/20 15:24 Zyvox Premix IV Infused Q12H SW[facility]I Infusion Protocol Insulin Aspart 0 unit 08/27/20 18:00 05/25/20 12:23 Novolog SUBCUT Not Given TIDWM [facility] Protocol Levothyroxine Sodium 125 mcg 05/21/20 14:00 05/25/20 09:38 Synthroid PO 125 mcg DAILY SWATI Administration Metoprolol Tartrate 50 mg 05/21/20 18:00 05/25/20 09:39 Lopressor PO 50 mg BID SWATI Administration Multivitamins Therapeutic 1 tab 05/22/20 09:00 05/25/20 09:38 Multivitamin Tab PO 1 tab DAILY SWATI Administration Neomycin/Polymyxin/Bacitracin 1 applic 05/21/20 14:33 05/21/20 15:58 Neosporin Oint Tube TOPICAL 1 applic BID PRN Administration with dressing changes Ondansetron HCl 4 mg 05/21/20 12:11 05/21/20 16:34 Zofran PO 4 mg TID PRN Administration Nausea Oxycodone/Acetaminophen 1 tab 05/22/20 16:52 05/25/20 01:41 Percocet 5-325 Mg PO 1 tab Q4H PRN Administration Pain Senna/Docusate Sodium 1 tab 05/22/20 09:00 05/25/20 09:38 Senna-S PO 1 tab DAILY SWATI Administration Venlafaxine HCl 150 mg 05/23/20 09:00 05/25/20 09:38 Effexor Xr PO 150 mg DAILY SWATI Administration PFSH Acute PFSH: Medical History Chronic kidney disease, stage 3 COPD (chronic obstructive pulmonary disease) Diabetic nephropathy Hypertension Hypothyroidism Leg ulcer, left PVD (peripheral vascular disease) Sleep apnea Type 2 diabetes mellitus Vascular dementia Surgical History History of bilateral knee arthroplasty S/P breast lumpectomy Family History Father Diabetes Hypertension Mother CAD (coronary artery disease) Hypertension Social History Smoking and tobacco status: never smoked Alcohol intake: never Household members: other Housing: Alf Current gender identity: Female Additional social history: -lives at [facility] Vitals/I&O/Wt Last Vital Signs Temp 98.1 F 05/25/20 12:00 Pulse 96 05/25/20 15:03 Resp 14 05/25/20 12:00 BP 123/72 05/25/20 12:00 Pulse Ox 97 05/25/20 15:03 05/25/20 05/25/20 05/25/20 06:59 14:59 22:59 Intake Total 918.333 / 1928.333 300 / 300 Output Total 100 / 270 Balance 818.333 / 1658.333 300 / 300 Weight last 48 hrs Weight 267 lb 12.8 oz Physical Exam Narrative: EXAM NARRATIVE: HEENT: Normocephalic, scar right side of the neck Eye: Sclera /conjunctiva normal Respiratory and chest: On BiPAP Cardiovascular: Normal S1 and S2 heart sounds Abdomen: Soft to palpation Neurological: Oriented to place person and time Skin: Intact, no lesions appreciated on gross exam A&P Assessment and plan (1) Acute kidney injury superimposed on CKD: 69-year-old female with acute comorbidities in acute renal failure, on Eliquis for A. fib requiring central venous access for IV therapy and a temporary dialysis catheter placement for acute renal failure Procedure risks and benefits discussed with the patient's son due to her mental status Plan for placement of temporary dialysis catheter and central venous access under local anesthesia/MAC Status: Acute Coding Level of Care Code Acute Government Relations Analyst for [facility] Fwd Diagnoses Acute kidney injury superimposed on CKD N17.9; N18.9
[2020-05-25 18:51] LABS: Creatine Phosphokinase 106 U/L (26-192)
[2020-05-25 19:00] LABS: Lactate (Lactic Acid level) 9.2 mmol/L (0.5-2.2)
[2020-05-25 19:28] LABS: Hepatitis B Surface AB 3.5 (0-8.5); Hepatitis B Surface Antigen Non-Reactive (Nonreactive); Hepatitis C Virus Antibody Non-Reactive (Nonreactive)
--- NOTE | 2020-05-25 19:30 | PC.NURSE ---
Hypotension Dialysis in progres 3-4 min in, starting systolic pressure 115 now 55/26. Dialysis nurse stopped procedure. Dr. Linares at bedside gave verbal orders to start dobutamine gtt and ordered dialysis nurse to infuse 1L saline to patient prior to disconnecting. Dialysis nurse notified regional intermodal truck driver, Dr. Bejarano.
[2020-05-25 19:31] LABS: Hepatitis B Surface AB 4.7 (0-8.5); Hepatitis B Surface Antigen Non-Reactive (Nonreactive); Hepatitis C Virus Antibody Non-Reactive (Nonreactive)
[2020-05-25] MEDS: sodium bicarbonate 150 MEQ in dextrose 5% 1,000 ML IV (19:40)
[2020-05-25] MEDS: piperacillin-tazobactam 3.375 GM in sodium chloride 0.9% (plus) 50 ML IV (19:41)
--- NOTE | 2020-05-25 19:48 | PC.NURSE ---
meds not given d/t pts. stte of mind. procedures in process. right groin with skin tears after large sterile drape for cvl, removed.
[2020-05-25] MEDS: DOBUTamine drip 500 MG/250 ML PREMIX 18.2 MG IV (19:56)
[2020-05-25 20:16] LABS: ABG PCO2 19.4 mmHg (35-45); ABG PH Result 7.32 (7.35-7.45); Arterial Blood Gas Hematocrit 26.6 % (37-47); Base Excess ABG -14.5 mmol/L (-2.0-2.0); Blood Gas Allen Test POS; Blood Gas Sample Type ARTERIAL; HCO3 ABG 9.9 mmol/L (22-26); Oxygen Device BIPAP
[2020-05-25] MEDS: vecuronium 10 mg SDV 20 MG IVP (20:55)
--- NOTE | 2020-05-25 20:59 | XRR_ITS ---
PROCEDURE INFORMATION: Exam: XR Chest, 1 View Exam date and time: 05/25/2020 9:38 PM Age: 69 years old Clinical indication: Device placement; Ett placement (vent status); Additional info: Et tube placement TECHNIQUE: Imaging protocol: XR of the chest Views: 1 view. COMPARISON: CR XR chest 1V portable [id number] 05/25/2020 6:34 PM FINDINGS: The thorax is partially obscured by overlying EKG leads. Tubes, catheters and devices: Endotracheal tube and central venous catheter. The endotracheal tube terminates 9 mm above the brynn and should be pulled back for optimal positioning. The central venous catheter terminates in the distal superior vena cava. Lungs: Interstitial prominence and right basilar airspace disease. Left basilar airspace/pleural disease obscuring the left hemidiaphragm. Heart/Mediastinum: Borderline cardiomegaly. Bones/joints: Degenerative change. XR/XR chest 1V portable [id number] IMPRESSION: 1. Interstitial prominence and right basilar airspace disease. 2. Left basilar airspace/pleural disease obscuring the left hemidiaphragm. 3. Endotracheal tube and central venous catheter. The endotracheal tube terminates 9 mm above the brynn and should be pulled back for optimal positioning. The central venous catheter terminates in the distal superior vena cava.
--- NOTE | 2020-05-25 21:35 | PC.NURSE ---
Intubation Note Pt needing dialysis, failed earlier attempt due to severe hypotension. Pt more hemodynamically stable at this time and on dobutamine at 7.5 mcg/kg/min and Levophed at 4mcg. Dr. Bejarano wanting patient dialyized again and decision was made to intubate prior to second attempt. 2054 20mg Etomidate given followed by 20mg Vecuronium. At [address] Ramirez with size 8 tube 24 lip. Positive color change and bilateral breath sounds. Unable to place OG and NG tube after multiple attempts due to coiling. Chest xray verified placement and RT pulled back to 23 at lip.
--- NOTE | 2020-05-25 22:10 | P.PN_ITS ---
Subjective Subjective: Interval history: Patient is critically ill today. I had seen her on Monday in [facility] and it seems like since then she has gone downhill. Her renal function worsened and in last 24 hr UO dropped significantly. This morning her mental status was altered and her ABG showed she was acidotic with ph-7.1 . She was transferred to unit and was started on dialysis. She got hypotensive and was intubated. She was started on levophed and dobutamine drip. Medications: Reviewed: Yes Medication Review Details: Current Medications Acetaminophen (Tylenol) 650 mg PO QID PRN PRN Reason: Pain Last Admin: 05/21/20 14:44 Dose: 650 mg Documented by: Apixaban (Eliquis) 2.5 mg PO BID [facility] Last Admin: 05/25/20 19:44 Dose: Not Given Documented by: Aripiprazole (Abilify) 5 mg PO BID [facility] Last Admin: 05/25/20 19:45 Dose: Not Given Documented by: Atorvastatin Calcium (Lipitor) 40 mg PO DAILY [facility] Last Admin: 05/25/20 09:38 Dose: 40 mg Documented by: Collagenase (Santyl) 1 applic TOPICAL DAILY SWATI Last Admin: 05/25/20 09:38 Dose: 1 applic Documented by: Dextrose (D50w) 25 ml IVP ONCE PRN; Protocol PRN Reason: hypoglycemia protocol Dextrose (D50w) 50 ml IVP PRN PRN; Protocol PRN Reason: hypoglycemia protocol Glucagon (Glucagen) 1 mg IM ONCE PRN; Protocol PRN Reason: Adult Acute Hypoglycemia Prot. Dextrose (D5w) 500 mls @ 100 mls/hr IV ONCE PRN; Protocol PRN Reason: Adult Acute Hypoglycemia Prot Last Infusion: 05/25/20 19:46 Dose: Infused Documented by: Sodium Chloride (Sodium Chloride 0.9%) 1,000 mls @ 100 mls/hr IV .Q10H [facility] Last Admin: 05/25/20 02:34 Dose: 100 mls/hr Documented by: Linezolid (Zyvox Premix) 600 mg in 300 mls @ 300 mls/hr IV Q12H SWATI; Protocol Last Infusion: 05/25/20 15:24 Dose: Infused Documented by: Sodium Bicarbonate 150 meq/ (Dextrose) 1,150 mls @ 150 mls/hr IV .Q7H40M [facility] Last Admin: 05/25/20 19:40 Dose: 150 mls/hr Documented by: Albumin Human (Albumin) 12.5 gm in 50 mls @ 60 mls/hr IV PRN PRN PRN Reason: Hypotension and/or symptomatic Piperacillin Sod/Tazobactam (Sod 3.375 gm/ Sodium Chloride) 50 mls @ 12.5 mls/hr IV Q12H [facility] Last Infusion: 05/25/20 21:30 Dose: 0 mls/hr Documented by: Albumin Human (Albumin) 12.5 gm in 50 mls @ 60 mls/hr IV PRN PRN PRN Reason: Hypotension and/or symptomatic Dobutamine HCl/Dextrose (Dobutamine Drip) 500 mg in 250 mls @ 0 mls/hr IV .Q0M SWATI; Protocol Last Titration: 05/25/20 20:10 Dose: 7.5 mcg/kg/min, 27.3 mls/hr Documented by: Norepinephrine Bitartrate 4 mg (/ Dextrose) 254 mls @ 0 mls/hr IV .Q0M SWATI; Protocol Last Titration: 05/25/20 21:47 Dose: 8 mcg/min, 30.5 mls/hr Documented by: Metronidazole (Flagyl Iv) 500 mg in 100 mls @ 100 mls/hr IV Q8H [facility]I; Protocol Propofol (Diprivan) 1,000 mg in 100 mls @ 0 mls/hr IV .Q0M SWATI; Protocol Insulin Aspart (Novolog) 0 unit SUBCUT TIDWM [facility]; Protocol Last Admin: 05/25/20 19:45 Dose: Not Given Documented by: Levothyroxine Sodium (Synthroid) 125 mcg PO DAILY [facility] Last Admin: 05/25/20 09:38 Dose: 125 mcg Documented by: Magnesium Hydroxide (Milk Of Magnesia) 30 ml PO DAILY PRN PRN Reason: Constipation Metoprolol Tartrate (Lopressor) 50 mg PO BID [facility] Last Admin: 05/25/20 19:45 Dose: Not Given Documented by: Multivitamins Therapeutic (Multivitamin Tab) 1 tab PO DAILY [facility] Last Admin: 05/25/20 09:38 Dose: 1 tab Documented by: Neomycin/Polymyxin/Bacitracin (Neosporin Oint Tube) 1 applic TOPICAL BID PRN PRN Reason: with dressing changes Last Admin: 05/21/20 15:58 Dose: 1 applic Documented by: Non-Formulary Medication (Fluticasone Furoate-Vilanterol [Breo Ellipta]) 1 inh INHALATION DAILY [facility] Ondansetron HCl (Zofran) 4 mg PO TID PRN PRN Reason: Nausea Last Admin: 05/21/20 16:34 Dose: 4 mg Documented by: Oxycodone/Acetaminophen (Percocet 5-325 Mg) 1 tab PO Q4H PRN PRN Reason: Pain Last Admin: 05/25/20 01:41 Dose: 1 tab Documented by: Senna/Docusate Sodium (Senna-S) 1 tab PO DAILY [facility] Last Admin: 05/25/20 09:38 Dose: 1 tab Documented by: Venlafaxine HCl (Effexor Xr) 150 mg PO DAILY [facility] Last Admin: 05/25/20 09:38 Dose: 150 mg Documented by: Vitals/I&O/Wt Last Vital Signs Temp 99.0 F 05/25/20 21:00 Pulse 116 H 05/25/20 21:55 Resp 18 05/25/20 21:35 BP 93/52 05/25/20 21:55 Pulse Ox 99 05/25/20 21:55 05/25/20 05/25/20 05/25/20 06:59 14:59 22:59 Intake Total 918.333 / 1928.333 596.616 / 596.616 Output Total 100 / 270 0 / 0 Balance 818.333 / 1658.333 596.616 / 596.616 Weight last 48 hrs Weight 267 lb 12.8 oz Physical Exam Const: GENERAL APPEARANCE: lethargic ORIENTATION/CONSCIOUSNESS: Yes lethargic Resp: COMMON NORMALS: clear to auscultation bilaterally AUSCULTATION: clear to auscultation bilaterally, no crackles, no rales, no rhonchi and no wheezes Cardio: COMMON NORMALS: Peripheral pulses 2+ throughout PALPATION: abnormal PMI RATE: tachycardic RHYTHM: abnormal rhythm irregularly irregular HEART SOUNDS: no gallops and no murmurs PERIPHERAL PULSES: Peripheral pulses 2+ throughout, radial pulses present, posterior tibial pulses present and dorsalis pedis present GI: COMMON NORMALS: Soft to palpation PALPATION: Yes Soft to palpation Extremity: GENERAL: Yes edema and No pallor Neuro: SENSORIUM/ORIENTATION: Yes lethargic Data : 05/25/20 06:45 05/25/20 12:37 Micro: Microbiology 05/25/20 18:15 Blood Culture - Preliminary Blood SPECIMEN COLLECTED 05/25/20 18:20 Blood Culture - Preliminary Blood SPECIMEN COLLECTED Echo: Radiologist's impression: CONCLUSIONS Severe hypokinesia of the mid and apical septum, anteroseptum and apical segments. LV ejection fraction around 30 to 35%. Moderate biatrial enlargement Mildly dilated right ventricle with normal ejection fraction. Mild tricuspid valve regurgitation. Thickened aortic and mitral valves. Estimated pulmonary artery peak systolic pressure 36 mmHg Compared to study from 05/11/2020 the wall motion normalities appears to be new. The features may suggest a Takotsubo syndrome. A&P Assessment and plan (1) Hypotension: Shock likley septic in etiology and decreased CO likely contributing. -recent blood cx negative so far -currently on dobutamine and levophed. Dobutamine may cause tachycardias will need to be monitored. -On broad spectrum antibiotics for sepsis. Status: Acute Qualifiers: Hypotension type: unspecified hypotension type Qualified Code(s): I95.9 - Hypotension, unspecified (2) Cardiomyopathy: Likely stress induced cardiomyopathy. -However, underlying CAD is a possibility as well. -Not a good candidate now with worsening renal function. Status: Acute Qualifiers: Cardiomyopathy type: unspecified Qualified Code(s): I42.9 - C ardiomyopathy, unspecified (3) Acute kidney injury superimposed on CKD: ARF currently on dialysis; however did not tolerate it d/t hypotension. Status: Acute (4) NSTEMI (non-ST elevated myocardial infarction): Status: Acute (5) Atrial fibrillation: Status: Acute Qualifiers: Atrial fibrillation type: longstanding persistent Qualified Code(s): I48.11 - Longstanding persistent atrial fibrillation (6) Type 2 diabetes mellitus: Status: Chronic Qualifiers: Diabetes mellitus complication status: with other specified complication Diabetes mellitus long term care administrator insulin use: without long term care administrator use Qualified Code(s): E11.69 - Type 2 diabetes mellitus with other specified complication (7) Acute metabolic encephalopathy: Status: Acute Additional A&P Information Metabolic acidosis Anemia Attestations Medical Necessity Statement*: She is critically ill with guarded prognosis. Coding Level of Care Code Acute Infectious Waste Technician for [facility] Diagnoses Hypotension I95.9 Hypotension type: unspecified hypotension type Cardiomyopathy I42.9 Cardiomyopathy type: unspecified Acute kidney injury superimposed on CKD N17.9; N18.9 NSTEMI (non-ST elevated myocardial infarction) I21.4 Atrial fibrillation I48.11 Atrial fibrillation type: longstanding persistent Type 2 diabetes mellitus E11.69 Diabetes mellitus complication status: with other specified complication Diabetes mellitus long term care administrator insulin use: without long term care administrator use Acute metabolic encephalopathy G93.41
[2020-05-26] VITALS (37 sets, daily range): BP systolic 86–134; BP diastolic 49–72; PULSE 97–152; RESP 16–28; TEMP 36.7–40.3; O2SAT 94–100
[2020-05-26] MEDS: sodium bicarbonate 150 MEQ in dextrose 5% 1,000 ML IV (00:22)
[2020-05-26] MEDS: metroNIDAZOLE IV 500 MG/100 ML PREMIX 100 MG IV ×3 (00:56→18:32)
[2020-05-26 01:11] LABS: ABG PCO2 29.3 mmHg (35-45); ABG PH Result 7.46 (7.35-7.45); Base Excess ABG -2.2 mmol/L (-2.0-2.0); Blood Gas Allen Test Pos; Blood Gas Sample Site Radial, left; Blood Gas Sample Type Arterial; Oxygen Device VENT; PO2 ABG 96.4 mmHg (80.0-100.0)
[2020-05-26] MEDS: midazolam 1 mg/mL INJ 2 mL IVP ×4 (01:59→18:01)
[2020-05-26] MEDS: linezolid premix 600 MG/300 ML PREMIX 300 MG IV ×2 (02:15→14:25)
[2020-05-26] MEDS: morphine 4 mg/mL SDV 1 mL 1 MG IVP (02:28)
--- NOTE | 2020-05-26 03:09 | PC.NURSE ---
Addendum entered by Santiago Enrique RN 05/26/20 05:06: Pt restless, Breathing over Vent at 26 RR, PRN versed and Morphine ineffective, Dr. Pierce contacted, received T.O. to start previous Propofolol order and stop PRN Versed Original Note: Pt restless, breathing over vent at 26 RR, PRN Versed and Morphine ineffective, Dr. Pierce contacted and received T.O. to start previous Propofolol order
[2020-05-26] MEDS: propofol 1,000 MG/100 ML INJ 3.6 MG IV (03:18)
[2020-05-26] MEDS: piperacillin-tazobactam 3.375 GM in sodium chloride 0.9% (plus) 50 ML IV ×3 (04:02→19:30)
[2020-05-26 04:28] LABS: ABG PH Result 7.46 (7.35-7.45); Arterial Blood Gas Hematocrit 22.6 % (37-47); Base Excess ABG -1.9 mmol/L (-2.0-2.0); Blood Gas Sample Site Brachial, left; Blood Gas Sample Type Arterial; HCO3 ABG 21.5 mmol/L (22-26); Oxygen Device VENT; PO2 ABG 94.7 mmHg (80.0-100.0)
[2020-05-26 04:30] LABS: Basophils % 0.2 %; Eosinophils # 0.1 10^3/uL (0.0-0.8); Eosinophils % 0.7 %; Hematocrit 24.3 % (37.0-47.0); Hemoglobin 7.8 g/dL (11.5-15.3); Lymphocytes # 2.5 10^3/uL (0.8-4.8); Mean Corpuscular HGB Conc 32.1 g/dL (30.0-36.0); Mean Corpuscular Hemoglobin 29.4 pg (28.0-34.0); Mean Corpuscular Volume 91.7 fL (81-99); Mean Platelet Volume 9.6 fL (7.4-10.4); Monocytes # 0.4 10^3/uL (0.2-0.9); Monocytes % 2.9 %; Neutrophils # 10.59 10^3/uL (1.8-7.7); Neutrophils % 77.6 %; Nucleated Red Blood Cells % 0.2 %; Platelet Count 227 10^3/cmm (130-400); Red Blood Count 2.65 10^6/uL (4.1-5.3); Red Cell Distribution Width 18.8 % (12.1-15.1); White Blood Count 13.7 10^3/uL (4.0-10.0)
--- NOTE | 2020-05-26 04:57 | PC.NURSE ---
Attempted to notify Hugo (son and DPOA) for update in patient status, no answer.
[2020-05-26 04:58] LABS: Alanine Aminotransferase 24 U/L (0-33); Albumin Level 2.1 g/dL (3.5-5.2); Alkaline Phosphatase 123 IU/L (35-105); Anion Gap 20.6 (5-19); Aspartate Amino Transferase 48 U/L (0-32); Blood Urea Nitrogen 14 mg/dL (8-23); Calcium 7.3 mg/dL (8.5-10.5); Carbon Dioxide 18 mmol/L (22-29); Chloride 102 mmol/L (98-107); Globulin 2.9 g/dL (1.3-4.6); Glucose 135 mg/dL (65-115); Magnesium 1.5 mg/dL (1.7-2.3); Osmolality Calculated 282 mOsm/kg (285-295); Phosphorus 3.4 mg/dL (2.5-4.5); Potassium 3.6 mmol/L (3.5-5.1); Sodium 137 mmol/L (136-145); Total Bilirubin 0.5 mg/dL (0.15-1.2)
[2020-05-26 05:02] LABS: Lactate (Lactic Acid level) 4.2 mmol/L (0.5-2.2)
--- NOTE | 2020-05-26 05:54 | PC.NURSE ---
CT To CT at 0520, remains intubated. RT assisting nurse. Transported with portable monitor. Back to room at 0540
[2020-05-26] MEDS: DOBUTamine drip 500 MG/250 ML PREMIX 9.1 MG IV ×2 (05:57→10:23)
--- NOTE | 2020-05-26 06:00 | XRR_ITS ---
PROCEDURE INFORMATION: Exam: XR Chest, 1 View Exam date and time: 05/26/2020 5:15 AM Age: 69 years old Clinical indication: Device placement; Ett placement (vent status); Additional info: Intubated TECHNIQUE: Imaging protocol: XR of the chest Views: 1 view. COMPARISON: CR XR chest 1V portable [id number] 05/25/2020 9:03 PM FINDINGS: Evaluation is limited by superficial EKG leads and tubing. Tubes, catheters and devices: Endotracheal tube and central venous catheter. The endotracheal tube terminates 2.5 cm above the brynn. Lungs: Left basilar airspace/pleural disease partially obscuring the left hemidiaphragm. Interstitial prominence. Interval improvement in right basilar airspace disease. Heart/Mediastinum: Borderline cardiomegaly. Vasculature: Calcification of the thoracic aorta. Bones/joints: Degenerative change. XR/XR chest 1V portable [id number] IMPRESSION: 1. Left basilar airspace/pleural disease partially obscuring the left hemidiaphragm. 2. Interval improvement in right basilar airspace disease.
--- NOTE | 2020-05-26 06:39 | PC.NURSE ---
Hemodynamics [facility] monitor on. Pt on 12mcg Levophed, Dobutamine at 5mcg/kg/min. BP 86/48 MAP (61) SVI 26 CI 3.1 TPRI 1532 TPR 682
--- NOTE | 2020-05-26 07:05 | PC.NURSE ---
Dr. Pierce notified of BP in low 80's MAP 61 Levophed running at 12 mcg/min Dobutamine 2.5mcg/kg/min, Propofol turned off, T.O. given to increase max dose of Levophed to 20 mcg/min
--- NOTE | 2020-05-26 08:03 | P.PN_ITS ---
Subjective Subjective: Interval history: intubated, sedated in ICU Medications: Reviewed: Yes Medication Review Details: Current Medications Acetaminophen (Tylenol) 650 mg PO QID PRN PRN Reason: Pain Last Admin: 05/21/20 14:44 Dose: 650 mg Documented by: Apixaban (Eliquis) 2.5 mg PO BID [facility] Last Admin: 05/25/20 19:44 Dose: Not Given Documented by: Aripiprazole (Abilify) 5 mg PO BID [facility] Last Admin: 05/25/20 19:45 Dose: Not Given Documented by: Atorvastatin Calcium (Lipitor) 40 mg PO DAILY [facility] Last Admin: 05/25/20 09:38 Dose: 40 mg Documented by: Collagenase (Santyl) 1 applic TOPICAL DAILY [facility] Last Admin: 05/25/20 09:38 Dose: 1 applic Documented by: Dextrose (D50w) 25 ml IVP ONCE PRN; Protocol PRN Reason: hypoglycemia protocol Dextrose (D50w) 50 ml IVP PRN PRN; Protocol PRN Reason: hypoglycemia protocol Glucagon (Glucagen) 1 mg IM ONCE PRN; Protocol PRN Reason: Adult Acute Hypoglycemia Prot. Dextrose (D5w) 500 mls @ 100 mls/hr IV ONCE PRN; Protocol PRN Reason: Adult Acute Hypoglycemia Prot Last Infusion: 05/25/20 19:46 Dose: Infused Documented by: Sodium Chloride (Sodium Chloride 0.9%) 1,000 mls @ 100 mls/hr IV .Q10H [facility] Last Admin: 05/25/20 02:34 Dose: 100 mls/hr Documented by: Linezolid (Zyvox Premix) 600 mg in 300 mls @ 300 mls/hr IV Q12H [facility]; Protocol Last Infusion: 05/26/20 03:15 Dose: Infused Documented by: Sodium Bicarbonate 150 meq/ (Dextrose) 1,150 mls @ 100 mls/hr IV .[id number] [facility] Last Infusion: 05/26/20 06:42 Dose: 100 mls/hr Documented by: Albumin Human (Albumin) 12.5 gm in 50 mls @ 60 mls/hr IV PRN PRN PRN Reason: Hypotension and/or symptomatic Albumin Human (Albumin) 12.5 gm in 50 mls @ 60 mls/hr IV PRN PRN PRN Reason: Hypotension and/or symptomatic Dobutamine HCl/Dextrose (Dobutamine Drip) 500 mg in 250 mls @ 0 mls/hr IV .Q0M [facility]; Protocol Last Titration: 05/26/20 06:42 Dose: 5 mcg/kg/min, 18.2 mls/hr Documented by: Norepinephrine Bitartrate 4 mg (/ Dextrose) 254 mls @ 0 mls/hr IV .Q0M [facility]; Protocol Last Admin: 05/26/20 07:03 Dose: 14 mcg/min, 53.3 mls/hr Documented by: Metronidazole (Flagyl Iv) 500 mg in 100 mls @ 100 mls/hr IV Q8H [facility]; Protocol Last Infusion: 05/26/20 01:56 Dose: Infused Documented by: Propofol (Diprivan) 1,000 mg in 100 mls @ 0 mls/hr IV .Q0M [facility]; Protocol Last Titration: 05/26/20 06:42 Dose: 0 mcg/kg/min, 0 mls/hr Documented by: Piperacillin Sod/Tazobactam (Sod 3.375 gm/ Sodium Chloride) 50 mls @ 12.5 mls/hr IV Q8H [facility] Last Admin: 05/26/20 04:02 Dose: 12.5 mls/hr Documented by: Insulin Aspart (Novolog) 0 unit SUBCUT TIDWM [facility]; Protocol Last Admin: 05/25/20 19:45 Dose: Not Given Documented by: Levothyroxine Sodium (Synthroid) 125 mcg PO DAILY [facility] Last Admin: 05/25/20 09:38 Dose: 125 mcg Documented by: Magnesium Hydroxide (Milk Of Magnesia) 30 ml PO DAILY PRN PRN Reason: Constipation Metoprolol Tartrate (Lopressor) 50 mg PO BID [facility] Last Admin: 05/25/20 19:45 Dose: Not Given Documented by: Morphine Sulfate (Morphine) 1 mg IVP Q2H PRN PRN Reason: SEVERE PAIN Last Admin: 05/26/20 02:28 Dose: 1 mg Documented by: Multivitamins Therapeutic (Multivitamin Tab) 1 tab PO DAILY [facility] Last Admin: 05/25/20 09:38 Dose: 1 tab Documented by: Neomycin/Polymyxin/Bacitracin (Neosporin Oint Tube) 1 applic TOPICAL BID PRN PRN Reason: with dressing changes Last Admin: 05/21/20 15:58 Dose: 1 applic Documented by: Non-Formulary Medication (Fluticasone Furoate-Vilanterol [Breo Ellipta]) 1 inh INHALATION DAILY [facility] Ondansetron HCl (Zofran) 4 mg PO TID PRN PRN Reason: Nausea Last Admin: 05/21/20 16:34 Dose: 4 mg Documented by: Oxycodone/Acetaminophen (Percocet 5-325 Mg) 1 tab PO Q4H PRN PRN Reason: Pain Last Admin: 05/25/20 01:41 Dose: 1 tab Documented by: Senna/Docusate Sodium (Senna-S) 1 tab PO DAILY [facility] Last Admin: 05/25/20 09:38 Dose: 1 tab Documented by: Venlafaxine HCl (Effexor Xr) 150 mg PO DAILY [facility] Last Admin: 05/25/20 09:38 Dose: 150 mg Documented by: Vitals/I&O/Wt Last Vital Signs Temp 99.3 F 05/26/20 04:09 Pulse 108 H 05/26/20 06:09 Resp 24 H 05/26/20 07:52 BP 86/55 05/26/20 06:09 Pulse Ox 98 05/26/20 06:09 05/25/20 05/26/20 05/26/20 22:59 06:59 14:59 Intake Total 596.616 / 079.089 4908.413 / 2707.029 78.578 / 78.578 Output Total 0 / 0 127 / 127 Balance 596.616 / 349.337 0747.413 / 2580.029 78.578 / 78.578 Weight last 48 hrs Weight 125.645 kg Physical Exam Narrative: EXAM NARRATIVE: exam performed by RN as telemedicine visit -intubated, sedtaed, on levo@14, dobutamine @ 5 remains in af ib w/ rvr of 130, BP improved heent- nc/at, eomi, anicteric lungs ronchi b/l heart irreg irreg, abd soft, + bs, nt ext legs swollen w/ lesions on left leg neuro- sedated, moving Data : 05/26/20 03:50 05/26/20 03:50 Micro: Microbiology 05/25/20 18:15 Blood Culture - Preliminary Blood SPECIMEN COLLECTED 05/25/20 18:20 Blood Culture - Preliminary Blood SPECIMEN COLLECTED A&P Additional A&P Information 69 year old female A fib, cva hx, dm, obesity, recent VRE bacteremia and ESBL UTI, and COPD. pt now w/ severe inc AGMA and PERRY 1. inc AGMA- likely sepsis- had lacatate of 9.2 improved to 4.2 w/ pressors and HD -assess for infection -post dialysis and w/ vent- now w/ mild alkalosis 2. PERRY- likely atn -u/a hazy, 1 + prot, 3+ blood. 15-25 wbc- Q UTI -no ur eos -low ur na- she did not respond to ivf -concern for embolic disease- would need to be b/l -renal us w/o hydro -cpk 106 -s/p emergent hd -monitor uop and chemistries -send serologies, though less likely a GN -repeat labs this afternoon to assess for HD needs 3. cva and a fib per medicine and neuro -please have cardiology assess and attempt to slow HR 4. agree w/ boad spectrum abx- sepsis eval per medicine -appears to have UTI on u/a 5. check tsh 6. wbc 13 7. anemia- check ldh, retic, haptoglobin, iron studies 8. replete mag prognosis is guarded discussed w/ Dr. 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
--- NOTE | 2020-05-26 08:28 | PM.PN ---
Subjective Subjective: Interval history: Patient Haldol overnight, had 127 mL urine output, remains on pressor support with dobutamine and levophed. Noted to be quite tachycardic with heart rates in the 130s-140s, A. fib. Able to tolerate second trial of dialysis overnight. Noted improvement in electrolytes, renal function. Drop in hemoglobin from 9.0->7.8. Low to low normal blood pressure, afebrile, remains on vent support. Lactate down to 4.2. Repeat urinalysis indicative of continued infection. Sedation with propofol held earlier this morning due to concern for hypotension. Will resume as patient is becoming more restless. Briefly discussed case with Dr. Wilkerson this morning. Acidosis resolved. Anion gap decreasing. Unable to place OG tube due to large hernia. Medications: Reviewed: Yes Medication Review Details: Active Medications Generic Name Dose Route Start Last Admin Trade Name Freq PRN Reason Stop Dose Admin Acetaminophen 650 mg 05/21/20 12:11 05/21/20 14:44 Tylenol PO 650 mg QID PRN Administration Pain Apixaban 2.5 mg 05/25/20 18:00 05/25/20 19:44 Eliquis PO Not Given BID [facility] Aripiprazole 5 mg 05/22/20 18:00 05/25/20 19:45 Abilify PO Not Given BID [facility] Atorvastatin Calci um 40 mg 05/21/20 13:00 05/25/20 09:38 Lipitor PO 40 mg DAILY [facility] Administration Collagenase 1 applic 05/24/20 17:00 05/25/20 09:38 Santyl TOPICAL 1 applic DAILY [facility] Administration Dextrose 25 ml 05/21/20 13:50 D50w IVP ONCE PRN hypoglycemia prot ocol Protocol Dextrose 50 ml 05/21/20 13:50 D50w IVP PRN PRN hypoglycemia prot ocol Protocol Glucagon 1 mg 05/21/20 13:50 Glucagen IM ONCE PRN Adult Acute Hypog lycemia Prot. Protocol Dextrose 500 mls @ 100 mls /hr 05/21/20 13:50 05/25/20 19:46 D5w IV Infused ONCE PRN Infusion Adult Acute Hypog lycemia Prot Protocol Sodium Chloride 1,000 mls @ 100 m ls/hr 05/24/20 15:30 05/25/20 02:34 Sodium Chloride 0.9% IV 100 mls/hr .Q10H [facility] Administration Linezolid 600 mg in 300 mls @ 300 mls/hr 05/25/20 14:00 05/26/20 03:15 Zyvox Premix IV Infused Q12H [facility] Infusion Protocol Sodium Bicarbonate 150 meq/ 1,150 mls @ 100 m ls/hr 05/25/20 16:00 05/26/20 06:42 Dextrose IV 100 mls/hr .[id number] [facility] Infusion Albumin Human 12.5 gm in 50 mls @ 60 mls/hr 05/25/20 16:33 Albumin IV PRN PRN Hypotension and/o r symptomatic Albumin Human 12.5 gm in 50 mls @ 60 mls/hr 05/25/20 17:21 Albumin IV PRN PRN Hypotension and/o r symptomatic Dobutamine HCl/Dex trose 500 mg in 250 mls @ 0 mls/hr 05/25/20 19:45 05/26/20 06:42 Dobutamine Drip IV 5 mcg/kg/min .Q0M [facility] 18.2 mls/hr Titration Protocol Per Protocol Norepinephrine Bit artrate 4 mg 254 mls @ 0 mls/h r 05/25/20 20:15 05/26/20 07:03 / Dextrose IV 14 mcg/min .Q0M [facility] 53.3 mls/hr Administration Protocol Per Protocol Metronidazole 500 mg in 100 mls @ 100 mls/hr 05/25/20 20:15 05/26/20 01:56 Flagyl Iv IV Infused Q8H [facility] Infusion Protocol Propofol 1,000 mg in 100 m ls @ 0 mls/hr 05/25/20 21:15 05/26/20 06:42 Diprivan IV 0 mcg/kg/min .Q0M [facility] 0 mls/hr Titration Protocol Per Protocol Piperacillin Sod/T azobactam 50 mls @ 12.5 mls /hr 05/26/20 03:45 05/26/20 04:02 Sod 3.375 gm/ So dium Chloride IV 12.5 mls/hr Q8H [facility] Administration Insulin Aspart 0 unit 05/21/20 18:00 05/25/20 19:45 Novolog SUBCUT Not Given TIDWM [facility] Protocol Levothyroxine Sodi um 125 mcg 05/21/20 14:00 05/25/20 09:38 Synthroid PO 125 mcg DAILY [facility] Administration Magnesium Hydroxid e 30 ml 05/21/20 12:11 Milk Of Magnesia PO DAILY PRN Constipation Metoprolol Tartrat e 50 mg 05/21/20 18:00 05/25/20 19:45 Lopressor PO Not Given BID [facility] Morphine Sulfate 1 mg 05/25/20 23:43 05/26/20 02:28 Morphine IVP 1 mg Q2H PRN Administration SEVERE PAIN Multivitamins Ther apeutic 1 tab 05/22/20 09:00 05/25/20 09:38 Multivitamin Tab PO 1 tab DAILY [facility] Administration Neomycin/Polymyxin /Bacitracin 1 applic 05/21/20 14:33 05/21/20 15:58 Neosporin Oint T ube TOPICAL 1 applic BID PRN Administration with dressing walter nges Non-Formulary Medi cation 1 inh 05/23/20 09:00 Fluticasone Furo ate-Vilanterol [Br eo Ellipta] INHALATION DAILY [facility] Ondansetron HCl 4 mg 05/21/20 12:11 05/21/20 16:34 Zofran PO 4 mg TID PRN Administration Nausea Oxycodone/Acetamin ophen 1 tab 05/22/20 16:52 05/25/20 01:41 Percocet 5-325 M g PO 1 tab Q4H PRN Administration Pain Senna/Docusate Sod ium 1 tab 05/22/20 09:00 05/25/20 09:38 Senna-S PO 1 tab DAILY [facility] Administration Venlafaxine HCl 150 mg 05/23/20 09:00 05/25/20 09:38 Effexor Xr PO 150 mg DAILY [facility] Administration clarithromycin Allergy (Unknown, Verified 04/16/20 14:33) Unknown hydrocodone Allergy (Unknown, Verified 04/16/20 14:33) Unknown metformin Allergy (Unknown, Verified 04/16/20 14:33) Unknown sitagliptin [From Januvia] Allergy (Unknown, Verified 04/16/20 14:33) Unknown tetanus and diphtheria toxoids Allergy (Unknown, Verified 04/16/20 14:33) Unknown triamcinolone Allergy (Unknown, Verified 04/16/20 14:33) Unknown Vitals/I&O/Wt Last Vital Signs Temp 99.3 F 05/26/20 04:09 Pulse 108 H 05/26/20 06:09 Resp 24 H 05/26/20 07:52 BP 86/55 05/26/20 06:09 Pulse Ox 98 05/26/20 06:09 05/25/20 05/26/20 05/26/20 22:59 06:59 14:59 Intake Total 596.616 / 018.874 4223.413 / 2707.029 78.578 / 78.578 Output Total 0 / 0 127 / 127 Balance 596.616 / 425.816 5905.413 / 2580.029 78.578 / 78.578 Weight last 48 hrs Weight 125.645 kg Physical Exam Const: COMMON NORMALS: no acute distress GENERAL APPEARANCE: ill appearing, Edematous and patient mechanically ventilated NUTRITIONAL APPEARANCE: obese morbidly obese ORIENTATION/CONSCIOUSNESS: Yes confused OTHER: -Very restless HENMT: COMMON NORMALS: normocephalic and atraumatic HEAD & SCALP: normocephalic and atraumatic MOUTH: moist mucous membranes abnormal Details: parched Eye: COMMON NORMALS: Equal, round and reactive pupils present, EOMs intact bilaterally and conjunctivae normal CONJUNCTIVA: Yes conjunctivae normal PUPIL: Yes Equal, round and reactive pupils present Neck/C-Spine: COMMON NORMALS: full ROM GENERAL: Yes normal visual inspection and Yes trachea midline OTHER: -contracted, leans to the L Resp: COMMON NORMALS: normal respiratory effort, No retractions and No use of accessory muscles EFFORT & INSPECTION: Yes tachypneic AUSCULTATION: rales and diminished lung sounds OTHER: -on vent support (400/30%/8); ETT-25 cm @ lip Cardio: COMMON NORMALS: S1 normal heart sound present, S2 normal heart sound present and No murmurs present (Cardio) RATE: tachycardic RHYTHM: abnormal rhythm irregularly irregular HEART SOUNDS: S1 normal heart sound present and S2 normal heart sound present GI: INSPECTION: Yes central obesity OTHER: -Unable to gauge tenderness but does not overtly grimace or wince during palpation : BLADDER/KIDNEY EXAM: Yes catheter in place Catheter type (Female): urethral OTHER: -Right femoral central line Extremity: NARRATIVE EXTREMITY EXAM: -Bed-bound at baseline -Chronic bilateral lower extremity lymphedema GENERAL: Yes edema (1-2+ pitting edema of bilateral LEs) Neuro: OTHER: -sedated Psych: ACTIVITY/MOTOR BEHAVIOR: Yes restless OTHER: -sedated Skin: NARRATIVE SKIN EXAM: -Scattered bruising -chronic wounds involving L calf, anterior leg, dorsum of foot with some areas of superficial slough but primarily good granulation tissue. -L heel ulcer; bone exposed, slough -weeping edema -chronic stasis dermatitis Data : 05/26/20 03:50 05/26/20 03:50 Micro: Microbiology 05/25/20 18:15 Blood Culture - Preliminary Blood SPECIMEN COLLECTED 05/25/20 18:20 Blood Culture - Preliminary Blood SPECIMEN COLLECTED A&P Assessment and plan (1) Septic shock: -Noted significant leukocytosis, lactic acidosis, with associated acute respiratory failure, acute metabolic encephalopathy, hypotension, acute renal impairment, anuria -Noted to have decreased ejection fraction of 30-35% on limited echo which is likely contributing to overall clinical decompensation -on pressor support; currently on dobutamine and levophed; wean as tolerated -Close monitoring of vital signs -intubated due to continued decompensation and fluid overload; remains on vent support -Unclear source of infection currently with noted leukocytosis, lactic acidosis, suspicion clinically for and skin source given continued evidence of UTI and known LE wounds; on Zyvox, Zosyn, metronidazole -repeat blood cx pending; previous cultures grew VRE Enterococcus faecium -had PICC line in place before; culture of tip negative -repeat UA shows continued evidence of infection; urine cx pending; previous cultures grew Joslyn albicans -Received 2 doses of albumin; give additional dose today -f/u sputum cx; gram stain negative -COVID-19 test negative (05/14) Status: Acute (2) Acute respiratory failure: -intubated due to continued decompensation and fluid overload; remains on vent support -weaning trial when appropriate; not stable enough for this right now -daily CXR, ABG while on vent support -noted evidence of fluid overload on imaging; anuric, requiring dialysis -continued close monitoring of respiratory status -f/u sputum cx; gram stain negative -COVID-19 test negative (05/14) Status: Acute Qualifiers: Respiratory failure complication: unspecified whether with hypoxia or hypercapnia Qualified Code(s): J96.00 - Acute respiratory failure, unspecified whether with hypoxia or hypercapnia (3) Acute kidney injury superimposed on CKD: -Noted to be anuric with worsening renal function -failed trial of IVF and developed fluid overload -has temporary dialysis catheter (R IJ); one session overnight -Has had issues in the past with acute renal impairment including during last admission -Continue to monitor urine output; remains marginal; has Patino catheter -Avoid nephrotoxins, renally dose meds -Nephrology evaluation appreciated -Baseline creatinine appears to be around 1-1.4 though has been as high as 5.7 in the past -in light of decreased EF, could be related to low output; on dobutamine -renal US: limited -PERRY on CKD stage 3 Status: Acute (4) Acute on chronic anemia: -baseline Hg appears to be 10-11 -required transfusion of 2 units PRBCs during last admission -Hg dropping, anticipate need for transfusion of blood products; continue to monitor closely -continue to monitor for bleeding -off AC and antiplatelets Status: Acute (5) Stress-induced cardiomyopathy: -limited Echo: EF=30=35% Status: Acute (6) CVA (cerebral vascular accident): -CT head: chronic changes -carotid US: <50% bilateral ICA stenosis -off ASA due to GI bleed hx; on statin Status: Acute Qualifiers: CVA mechanism: unspecified Qualified Code(s): I63.9 - Cerebral infarction, unspecified (7) Elevated troponin level: -noted elevated troponins; likely type II due to demand ischemia -Cardiology evaluation appreciated -limited echo as noted above -previously on AC with Eliquis -will likely need outpatient stress testing Status: Acute (8) Intermittent atrial fibrillation: -tachycardic -telemetry monitoring -continue to monitor vital signs -on AC with Eliquis -Echo: EF=30-35% -off ASA due to GI bleed hx Status: Acute (9) Acute metabolic encephalopathy: -In light of continued clinical decompensation including development of septic shock Status: Acute (10) Hypotension: -As noted above Status: Acute Qualifiers: Hypotension type: unspecified hypotension type Qualified Code(s): I95.9 - Hypotension, unspecified (11) UTI (urinary tract infection): -repeat UA shows continued evidence of infection; urine cx pending; previous cultures grew Joslyn albicans Status: Acute Qualifiers: Urinary tract infection type: acute cystitis Hematuria presence: without hematuria Qualified Code(s): N30.00 - Acute cystitis without hematuria (12) High anion gap metabolic acidosis: -improving -continue to monitor Status: Acute Additional A&P Information -GERD -Morbid obesity: BMI-47 kg/m2 though overall has quite poor nutrition status as reflected by hypoalbuminemia which is contributing to lymphedema. -large hiatal hernia -Dyslipidemia; on statin -Chronic pain; on narcotics -Gram positive bacteremia secondary to LE cellulitis and acutely infected LLE wounds which were surgically debrided during last admission and additional bedside debridement on 05/21; blood cx grew VRE Enterococcus faecium. On Zyvox. Blood cx (05/21): negative. Wound care with Santyl; continue to f/u at [facility] on d/c -Peripheral vascular disease; seen by Dr. Alejandre during previous admission, s/p peripheral angiogram with no noted significant vascular compromise noted. -COPD, not oxygen dependent at baseline -Vascular dementia -NIDDM type II; A1c-5.3; Accuchecks, ISS, hypoglycemia precautions. DM complicated by nephropathy, PVD, neuropathy -Hypothyroidism; on levothyroxine, TSH wnl -Fecal retention; enemas PRN -NPO -DVT ppx not done as due to bleeding risk is off AC and cannot have SCDs due to LE wounds -Dispo: Martir Stark -Code status: FULL code -continue ICU care due to critical illness -Very guarded prognosis Attestations Medical Necessity Statement*: Patient requires hospitalization for continued management of critical illness, remains on vent and pressor support. Time Spent in Patient Care: Greater than 35 minutes (>than 50% of time spent in counselling and/or direct pt care on unit). Critical Care Time: The high probability of a clinically significant, sudden or life threatening deterioration of the patient's [respiratory, cardiovascular, renal] system(s) required my full and direct attention, intervention and personal management. The critical care time is as shown. This time is in addition to time spent performing any reported procedures but includes the following: [x] Data and vital sign review and interpretation [x] Patient assessment, examination and intervention [x] Documentation [x] Medication orders and management Critical Care Time (min): 30 Coding Level of Care Code Acute Dispensing Optician for [facility] Fwd Diagnoses Septic shock A41.9; R65.21 Acute respiratory failure J96.00 Respiratory failure complication: unspecified whether with hypoxia or hypercapnia Acute kidney injury superimposed on CKD N17.9; N18.9 Acute on chronic anemia D64.9 Stress-induced cardiomyopathy I51.81 CVA (cerebral vascular accident) I63.9 CVA mechanism: unspecified Elevated troponin level R79.89 Intermittent atrial fibrillation I48.0 Acute metabolic encephalopathy G93.41 Hypotension I95.9 Hypotension type: unspecified hypotension type UTI (urinary tract infection) N30.00 Urinary tract infection type: acute cystitis Hematuria presence: without hematuria High anion gap metabolic acidosis E87.2
[2020-05-26 09:00] LABS: Ferritin 619 ng/mL (15-150); Iron 121 ug/dL (37-145); Lactate Dehydrogenase 349 U/L (135-214); Thyroid Stimulating Hormone 6.68 uIU/mL (0.27-4.20)
[2020-05-26 09:01] LABS: Percent Saturation 87.6 % (20-50); Total Iron Binding Capacity 138 mcg/dl; Unsaturated Iron Binding < 17 ug/dL (112-347)
[2020-05-26 09:14] LABS: Vancomycin Random < 4.0 ug/mL (20.0-40.0)
[2020-05-26 09:51] LABS: Glucose Point of Care 128 mg/dL (70-110)
[2020-05-26] MEDS: albumin 12.5 GM/50 ML VIAL IV (10:21)
[2020-05-26] MEDS: magnesium sulfate premix 2 GM/50 ML PIGGYBACK IV (10:23)
[2020-05-26 12:17] LABS: Glucose Point of Care 123 mg/dL (70-110)
[2020-05-26] MEDS: fentaNYL 50 mcg/mL INJ 2mL 25 MCG IVP ×3 (12:43→18:02)
[2020-05-26 12:51] LABS: ABG PCO2 25.7 mmHg (35-45); ABG PH Result 7.55 (7.35-7.45); Arterial Blood Gas Hematocrit 25.1 % (37-47); Base Excess ABG 0.6 mmol/L (-2.0-2.0); Blood Gas Allen Test Pos; Blood Gas Operator Identificat GD; Blood Gas Sample Site Radial, left; Blood Gas Sample Type Arterial; Carboxyhemoglobin 0.7 %THgb (0.4-20.1); HCO3 ABG 22.5 mmol/L (22-26); Oxygen Device VENT; Oxygen Saturation ABG 99.7; Potassium Level - ABG 3.9 mmol/L (3.5-5.0); Total Hemoglobin 8.2 g/dL (12-16)
[2020-05-26 13:14] LABS: Basophils % 0.2 %; Eosinophils # 0.1 10^3/uL (0.0-0.8); Eosinophils % 1.1 %; Hematocrit 23.8 % (37.0-47.0); Hemoglobin 7.9 g/dL (11.5-15.3); Lymphocytes # 2.7 10^3/uL (0.8-4.8); Lymphocytes % 21.9 %; Mean Corpuscular HGB Conc 33.2 g/dL (30.0-36.0); Mean Corpuscular Hemoglobin 29.5 pg (28.0-34.0); Mean Corpuscular Volume 88.8 fL (81-99); Mean Platelet Volume 9.4 fL (7.4-10.4); Monocytes # 0.3 10^3/uL (0.2-0.9); Monocytes % 2.8 %; Neutrophils # 8.98 10^3/uL (1.8-7.7); Neutrophils % 73.5 %; Nucleated Red Blood Cells % 0.2 %; Platelet Count 249 10^3/cmm (130-400); Red Blood Count 2.68 10^6/uL (4.1-5.3); Red Cell Distribution Width 18.6 % (12.1-15.1); White Blood Count 12.2 10^3/uL (4.0-10.0)
[2020-05-26 13:28] LABS: Alanine Aminotransferase 21 U/L (0-33); Albumin Level 2.3 g/dL (3.5-5.2); Alkaline Phosphatase 134 IU/L (35-105); Anion Gap 16.3 (5-19); Aspartate Amino Transferase 38 U/L (0-32); Blood Urea Nitrogen 12 mg/dL (8-23); Calcium 7.7 mg/dL (8.5-10.5); Carbon Dioxide 22 mmol/L (22-29); Chloride 100 mmol/L (98-107); Globulin 2.8 g/dL (1.3-4.6); Glucose 127 mg/dL (65-115); Osmolality Calculated 278 mOsm/kg (285-295); Potassium 3.3 mmol/L (3.5-5.1); Sodium 135 mmol/L (136-145); Total Bilirubin 0.5 mg/dL (0.15-1.2); Total Protein 5.1 g/dL (6.6-8.7)
--- NOTE | 2020-05-26 15:30 | DCPLANNER ---
Pg 2 of IM updated and left message on Son; Hugo's cell phone - [phone]. Left our phone # should he have any questions.
[2020-05-26] MEDS: metoprolol tartrate 1 mg/1 mL SDV 5 mL 5 MG IV ×2 (16:05→19:59)
[2020-05-26] MEDS: norepinephrine 8 MG in dextrose 5 % 500 ML 49.5 MG IV (16:45)
--- NOTE | 2020-05-26 18:20 | PC.OT ---
OT note: Pt intubated, hold OT today.
--- NOTE | 2020-05-26 18:25 | PM.PN ---
Subjective Subjective: Interval history: Patient remains critically ill. She is still on levophed gtt 13 and dobutamine 5. She remained tachycardic in 120-140's and dose of dobutamine was decreased to 2.5. Her HR improved to 110's -120's. She got some dialysis last night and with bicarb drip her acidosis has improved. She was unable to do OG/NG tube inspite of multiple attempts. Vitals/I&O/Wt Last Vital Signs Temp 100.6 F H 05/26/20 14:00 Pulse 130 H 05/26/20 14:00 Resp 24 H 05/26/20 18:02 BP 96/53 05/26/20 14:00 Pulse Ox 97 05/26/20 18:02 05/26/20 05/26/20 05/26/20 06:59 14:59 22:59 Intake Total 2110.413 / 2707.029 1080.846 / 1080.846 Output Total 127 / 127 30 / 30 Balance 1983.413 / 2580.029 1050.846 / 1050.846 Weight last 48 hrs Weight 277 lb Physical Exam Const: GENERAL APPEARANCE: lethargic ORIENTATION/CONSCIOUSNESS: Yes lethargic Resp: COMMON NORMALS: clear to auscultation bilaterally (anteriorly) AUSCULTATION: clear to auscultation bilaterally (anteriorly), crackles, no rales and no rhonchi Cardio: COMMON NORMALS: Peripheral pulses 2+ throughout PALPATION: abnormal PMI RATE: tachycardic RHYTHM: abnormal rhythm irregularly irregular HEART SOUNDS: no gallops and no murmurs PERIPHERAL PULSES: Peripheral pulses 2+ throughout, radial pulses present, posterior tibial pulses present and dorsalis pedis present GI: COMMON NORMALS: Soft to palpation PALPATION: Yes Soft to palpation Extremity: GENERAL: Yes edema and No pallor Neuro: SENSORIUM/ORIENTATION: Yes lethargic Data : 05/26/20 12:52 05/26/20 12:52 Other Labs: Laboratory Tests 05/25/20 05/26/20 05/26/20 08:22 03:50 12:39 Haptoglobin 278.0 H D-Dimer 2.45 H ABG pH 7.55 H ABG pCO2 25.7 L ABG pO2 125.0 H ABG HCO3 22.5 Mechanical Rate 12.0 FiO2 28.0 Tidal Volume 0.40 PEEP 8.0 Micro: Microbiology 05/21/20 14:05 Blood Culture - Final Blood NO GROWTH AFTER 5 DAYS 05/21/20 14:00 Blood Culture - Final Blood NO GROWTH AFTER 5 DAYS 05/24/20 13:20 Urine Culture - Preliminary Urine,Clean Catch Gram Negative Rods Gram Negative Rods#2 05/26/20 04:26 Gram Stain - Final Sputum - Endotracheal Tube Aspirate 05/25/20 18:15 Blood Culture - Preliminary Blood SPECIMEN COLLECTED 05/25/20 18:20 Blood Culture - Preliminary Blood SPECIMEN COLLECTED CT Abd/Pel: Radiologist's impression: IMPRESSION: 1. Interstitial prominence, chronic granulomatous disease, and asymmetric dependent bibasilar airspace disease. 2. Moderate-sized bilateral pleural effusions. 3. 5.8 cm right paraesophageal hernia. 4. Additional findings as described above. IMPRESSION: 1. No acute inflammatory process in the visualized abdomen or pelvis. 2. Prominent stool in a pattern of constipation and impending fecal impaction. The dilated stool-filled rectum measures 6.7 cm in diameter. 3. Additional findings as described above. A&P Assessment and plan (1) Septic shock: Status: Acute (2) Hypotension: Shock likely septic in etiology and decreased CO likely contributing. -recent blood cx negative so far -currently on dobutamine and levophed. Dobutamine may cause tachycardias will need to be monitored. -On broad spectrum antibiotics for sepsis. Status: Acute Qualifiers: Hypotension type: unspecified hypotension type Qualified Code(s): I95.9 - Hypotension, unspecified (3) Atrial fibrillation: Atrial fib with RVR; did not get PO metoprolol. start on low dose metoprolol 2.5 -5 mg IV Q 4 Hr PRN. -dose of dobutamine decreased. May have to wean her off to see how she reponds. Status: Acute Qualifiers: Atrial fibrillation type: longstanding persistent Qualified Code(s): I48.11 - Longstanding persistent atrial fibrillation (4) Cardiomyopathy: Likely stress induced cardiomyopathy. -However, underlying CAD is a possibility. She has h/o CVA and PAD. -Not a good candidate now for any further work up with worsening renal function. Status: Acute Qualifiers: Cardiomyopathy type: unspecified Qualified Code(s): I42.9 - Cardiomyopathy, unspecified (5) Acute kidney injury superimposed on CKD: ARF currently on dialysis; however did not tolerate it d/t hypotension. -Not making much urine. Status: Acute (6) NSTEMI (non-ST elevated myocardial infarction): Likely type 2 in etiology Status: Acute (7) Type 2 diabetes mellitus: Status: Chronic Qualifiers: Diabetes mellitus complication status: with other specified complication Diabetes mellitus electronics tester insulin use: without electronics tester use Qualified Code(s): E11.69 - Type 2 diabetes mellitus with other specified complication (8) Acute metabolic encephalopathy: Status: Acute Additional A&P Information Metabolic acidosis Anemia Hypokalemia Hypomagnesemia I spoke to her sons Hugo (in person) and John (on phone) and sister in law and the critical state of patient was discussed with them in detail. Attestations Medical Necessity Statement*: She remains critically ill. Coding Level of Care Code Acute Computer Architect for g Fwd Diagnoses Septic shock A41.9; R65.21 Hypotension I95.9 Hypotension type: unspecified hypotension type Atrial fibrillation I48.11 Atrial fibrillation type: longstanding persistent Cardiomyopathy I42.9 Cardiomyopathy type: unspecified Acute kidney injury superimposed on CKD N17.9; N18.9 NSTEMI (non-ST elevated myocardial infarction) I21.4 Type 2 diabetes mellitus E11.69 Diabetes mellitus complication status: with other specified complication Diabetes mellitus mcfp insulin use: without electronics tester use Acute metabolic encephalopathy G93.41
[2020-05-26] MEDS: collagenase oint 30 gm 1 APPLIC TOPICAL (18:33)
[2020-05-26 18:46] LABS: Glucose Point of Care 123 mg/dL (70-110)
[2020-05-26] MEDS: acetaminophen 650 mg Supp PR ×2 (22:15→23:03)
--- NOTE | 2020-05-26 22:38 | PC.NURSE ---
Dr. Pierce Notified of Ax Temp 103.8 and Rectal Temp 104.5 and Afib with HR 120's to 150's BP stable, PRN Tyenol 650 mg rectal q6Hrs orderd, this nurse was advised to cool with external methods and monitor, add indication to PRN IV metoprolol of for HR >120
[2020-05-27] VITALS (26 sets, daily range): BP systolic 88–123; BP diastolic 56–79; PULSE 81–119; RESP 12–26; TEMP 37.1–39.1; O2SAT 92–100
--- NOTE | 2020-05-27 | USCV_ITS ---
Leatha Emery Age: 69 Gender: F : 1950 Exam Date: 05/27/2020 15:30 Ordering Phys: Milagros Mcpherson MD Technologist: Lynn Hartley Exam Location: [facility] Indication: EVAL LV FUNC BP: / HR: 100 Rhythm: Sinus Technical Quality: Adequate MEASUREMENTS (Male / Female) Normal Values FINDINGS Left Ventricle LV systolic function is normal with EF of 60-65%. No regional wall motion abnormalities noted Right Ventricle Right Atrium Left Atrium Mitral Valve Aortic Valve Tricuspid Valve Pulmonic Valve Pericardium Aorta CONCLUSIONS This is a limited echo with contrast to assess for LV systolic function. LV systolic function is normal with EF of 60-65%. No regional wall motion abnormalities are noted. Steve Kevin MD (Electronically Signed) Final Date: 27 May 2020 17:08 S
[2020-05-27] MEDS: metroNIDAZOLE IV 500 MG/100 ML PREMIX 100 MG IV ×3 (00:48→17:30)
[2020-05-27] MEDS: linezolid premix 600 MG/300 ML PREMIX 300 MG IV ×2 (02:02→15:09)
[2020-05-27] MEDS: norepinephrine 8 MG in dextrose 5 % 500 ML 22.9 MG IV (03:02)
[2020-05-27] MEDS: piperacillin-tazobactam 3.375 GM in sodium chloride 0.9% (plus) 50 ML IV ×3 (03:31→20:28)
[2020-05-27 04:09] LABS: Basophils % 0.2 %; Eosinophils % 0.1 %; Hematocrit 22.3 % (37.0-47.0); Hemoglobin 7.2 g/dL (11.5-15.3); Lymphocytes % 21.6 %; Mean Corpuscular HGB Conc 32.3 g/dL (30.0-36.0); Mean Corpuscular Hemoglobin 28.6 pg (28.0-34.0); Mean Corpuscular Volume 88.5 fL (81-99); Mean Platelet Volume 9.2 fL (7.4-10.4); Monocytes # 0.3 10^3/uL (0.2-0.9); Neutrophils # 6.87 10^3/uL (1.8-7.7); Neutrophils % 74.7 %; Nucleated Red Blood Cells % 0.3 %; Platelet Count 177 10^3/cmm (130-400); Red Blood Count 2.52 10^6/uL (4.1-5.3); White Blood Count 9.2 10^3/uL (4.0-10.0)
[2020-05-27 04:35] LABS: Alanine Aminotransferase 19 U/L (0-33); Albumin Level 2.2 g/dL (3.5-5.2); Alkaline Phosphatase 119 IU/L (35-105); Anion Gap 20.5 (5-19); Aspartate Amino Transferase 26 U/L (0-32); Blood Urea Nitrogen 15 mg/dL (8-23); Carbon Dioxide 19 mmol/L (22-29); Chloride 98 mmol/L (98-107); Globulin 2.7 g/dL (1.3-4.6); Glucose 144 mg/dL (65-115); Magnesium 1.7 mg/dL (1.7-2.3); Osmolality Calculated 277 mOsm/kg (285-295); Phosphorus 2.8 mg/dL (2.5-4.5); Potassium 3.5 mmol/L (3.5-5.1); Sodium 134 mmol/L (136-145); Total Bilirubin 0.7 mg/dL (0.15-1.2); Total Protein 4.9 g/dL (6.6-8.7)
[2020-05-27 04:57] LABS: ABG PCO2 28.6 mmHg (35-45); ABG PH Result 7.52 (7.35-7.45); Arterial Blood Gas Hematocrit 29.1 % (37-47); Base Excess ABG 0.6 mmol/L (-2.0-2.0); Blood Gas Sample Type Arterial
[2020-05-27 04:58] LABS: Blood Gas Sample Site Brachial, right; Oxygen Device VENT
--- NOTE | 2020-05-27 06:00 | XRR_ITS ---
PROCEDURE INFORMATION: Exam: XR Chest, 1 View Exam date and time: 05/27/2020 6:09 AM Age: 69 years old Clinical indication: Device placement; Other: Og, central line; Patient HX: Follow up et, og, and central line placement; Additional info: Intubated TECHNIQUE: Imaging protocol: XR of the chest Views: 1 view. COMPARISON: CR XR chest 1V portable [id number] 05/26/2020 5:25 AM FINDINGS: Tubes, catheters and devices: Endotracheal tube and central venous catheter again demonstrated. The endotracheal tube terminates 10 mm above the brynn. Heart: borderline cardiomegaly. Lungs: Asymmetric left basilar airspace/pleural disease obscuring the left hemidiaphragm. Interstitial prominence and chronic granulomatous disease. Heart/Mediastinum: See Tubes, catheters and devices finding. Bones/joints: Degenerative change. When correlating with the previous study, no significant interval changes are present. XR/XR chest 1V portable [id number] IMPRESSION: Stable appearance of the chest, not significantly changed from 05/26/2020 .
[2020-05-27 07:22] LABS: Glucose Point of Care 127 mg/dL (70-110)
--- NOTE | 2020-05-27 08:03 | P.PN_ITS ---
Subjective Subjective: Interval history: Overnight was febrile with a T-max of 104.5F, currently afebrile, blood pressure seems to be more stable, tachycardic to the 140s, able to decrease Levophed dose and has been off dobutamine since yesterday evening. Had urine output of 85 mL overnight. Noted drop in hemoglobin to 7.2, resolved leukocytosis, stable creatinine with normal electrolytes. ABG noted. Awake, baseline tremor of RUE, had BM following enema yesterday. Medications: Reviewed: Yes Medication Review Details: Active Medications Generic Name Dose Route Start Last Admin Trade Name Freq PRN Reason Stop Dose Admin Acetaminophen 650 mg 05/26/20 22:03 05/26/20 22:15 Tylenol CA 650 mg Q6H PRN Administration FEVER Apixaban 2.5 mg 05/25/20 18:00 05/26/20 18:33 Eliquis PO Not Given BID SWATI Aripiprazole 5 mg 05/22/20 18:00 05/26/20 18:34 Abilify PO Not Given BID SWATI Atorvastatin Calci um 40 mg 05/21/20 13:00 05/26/20 09:39 Lipitor PO Not Given DAILY SWATI Collagenase 1 applic 05/24/20 17:00 05/26/20 18:33 Santyl TOPICAL 1 applic DAILY SAWTI Administration Dextrose 25 ml 05/21/20 13:50 D50w IVP ONCE PRN hypoglycemia prot ocol Protocol Dextrose 50 ml 05/21/20 13:50 D50w IVP PRN PRN hypoglycemia prot ocol Protocol Fentanyl 25 mcg 05/26/20 08:32 05/26/20 18:02 Sublimaze IVP 25 mcg Q2H PRN Administration Severe Pain or ag itation Glucagon 1 mg 05/21/20 13:50 Glucagen IM ONCE PRN Adult Acute Hypog lycemia Prot. Protocol Dextrose 500 mls @ 100 mls /hr 05/21/20 13:50 05/25/20 19:46 D5w IV Infused ONCE PRN Infusion Adult Acute Hypog lycemia Prot Protocol Sodium Chloride 1,000 mls @ 100 m ls/hr 05/24/20 15:30 05/25/20 02:34 Sodium Chloride 0.9% IV 100 mls/hr .Q10H SWATI Administration Linezolid 600 mg in 300 mls @ 300 mls/hr 05/25/20 14:00 05/27/20 03:14 Zyvox Premix IV Infused Q12H SWATI Infusion Protocol Albumin Human 12.5 gm in 50 mls @ 60 mls/hr 05/25/20 16:33 Albumin IV PRN PRN Hypotension and/o r symptomatic Albumin Human 12.5 gm in 50 mls @ 60 mls/hr 05/25/20 17:21 Albumin IV PRN PRN Hypotension and/o r symptomatic Dobutamine HCl/Dex trose 500 mg in 250 mls @ 0 mls/hr 05/25/20 19:45 05/26/20 18:32 Dobutamine Drip IV Infused .Q0M SWATI Titration Protocol Per Protocol Norepinephrine Bit artrate 4 mg 254 mls @ 0 mls/h r 05/25/20 20:15 05/27/20 03:00 / Dextrose IV Infused .Q0M SWATI Titration Protocol Per Protocol Metronidazole 500 mg in 100 mls @ 100 mls/hr 05/25/20 20:15 05/27/20 03:14 Flagyl Iv IV Infused Q8H SWATI Infusion Protocol Propofol 1,000 mg in 100 m ls @ 0 mls/hr 05/25/20 21:15 05/26/20 20:33 Diprivan IV Infused .Q0M SWATI Titration Protocol Per Protocol Piperacillin Sod/T azobactam 50 mls @ 12.5 mls /hr 05/26/20 03:45 05/27/20 03:31 Sod 3.375 gm/ So dium Chloride IV 12.5 mls/hr Q8H SWATI Administration Norepinephrine Bit artrate 8 mg 508 mls @ 0 mls/h r 05/26/20 17:30 05/27/20 03:02 / Dextrose IV 6 mcg/min .Q0M SWATI 22.9 mls/hr Administration Protocol Per Protocol Fentanyl 1,000 mcg / Sodium 100 mls @ 0 mls/h r 05/26/20 19:30 05/26/20 23:51 Chloride IV 25 mcg/hr .Q0M SWATI 2.5 mls/hr Titration Protocol Per Protocol Insulin Aspart 0 unit 05/21/20 18:00 05/27/20 07:23 Novolog SUBCUT Not Given TIDWM SWATI Protocol Levothyroxine Sodi um 125 mcg 05/21/20 14:00 05/26/20 09:40 Synthroid PO Not Given DAILY [facility] Magnesium Hydroxid e 30 ml 05/21/20 12:11 Milk Of Magnesia PO DAILY PRN Constipation Metoprolol Tartrat e 50 mg 05/21/20 18:00 05/26/20 18:34 Lopressor PO Not Given BID SWATI Metoprolol Tartrat e 5 mg 05/26/20 15:47 05/26/20 19:59 Metoprolol Tartr ate IV 5 mg Q4H PRN Administration tachycardia Midazolam HCl 1 mg 05/26/20 08:32 05/26/20 18:01 Versed IVP 1 mg Q2H PRN Administration AGITATION Morphine Sulfate 1 mg 05/25/20 23:43 05/26/20 02:28 Morphine IVP 1 mg Q2H PRN Administration SEVERE PAIN Multivitamins Ther apeutic 1 tab 05/22/20 09:00 05/26/20 09:40 Multivitamin Tab PO Not Given DAILY [facility] Neomycin/Polymyxin /Bacitracin 1 applic 05/21/20 14:33 05/21/20 15:58 Neosporin Oint T ube TOPICAL 1 applic BID PRN Administration with dressing walter nges Non-Formulary Medi cation 1 inh 05/23/20 09:00 Fluticasone Furo ate-Vilanterol [Br eo Ellipta] INHALATION DAILY [facility] Ondansetron HCl 4 mg 05/21/20 12:11 05/21/20 16:34 Zofran PO 4 mg TID PRN Administration Nausea Oxycodone/Acetamin ophen 1 tab 05/22/20 16:52 05/25/20 01:41 Percocet 5-325 M g PO 1 tab Q4H PRN Administration Pain Senna/Docusate Sod ium 1 tab 05/22/20 09:00 05/26/20 09:40 Senna-S PO Not Given DAILY [facility] Venlafaxine HCl 150 mg 05/23/20 09:00 05/26/20 09:40 Effexor Xr PO Not Given DAILY [facility] clarithromycin Allergy (Unknown, Verified 04/16/20 14:33) Unknown hydrocodone Allergy (Unknown, Verified 04/16/20 14:33) Unknown metformin Allergy (Unknown, Verified 04/16/20 14:33) Unknown sitagliptin [From Sepuvia] Allergy (Unknown, Verified 04/16/20 14:33) Unknown tetanus and diphtheria toxoids Allergy (Unknown, Verified 04/16/20 14:33) Unknown triamcinolone Allergy (Unknown, Verified 04/16/20 14:33) Unknown Vitals/I&O/Wt Last Vital Signs Temp 98.8 F 05/27/20 07:28 Pulse 99 05/27/20 07:28 Resp 16 05/27/20 07:28 BP 97/60 05/27/20 07:28 Pulse Ox 99 05/27/20 07:28 05/26/20 05/27/20 05/27/20 22:59 06:59 14:59 Intake Total 1367.190 / 2448.036 503.55 / 2951.586 Output Total 61 / 91 85 / 176 50 / 50 Balance 1306.190 / 2357.036 418.55 / 2775.586 -50 / -50 Weight last 48 hrs Weight 127.006 kg Weight 125.645 kg Physical Exam Const: COMMON NORMALS: no acute distress and alert GENERAL APPEARANCE: ill appearing, Edematous and patient mechanically ventilated NUTRITIONAL APPEARANCE: obese morbidly obese HENMT: COMMON NORMALS: normocephalic and atraumatic HEAD & SCALP: normocephalic and atraumatic MOUTH: moist mucous membranes abnormal Details: parched Eye: COMMON NORMALS: Equal, round and reactive pupils present, EOMs intact bilaterally and conjunctivae normal CONJUNCTIVA: Yes conjunctivae normal PUPIL: Yes Equal, round and reactive pupils present Neck/C-Spine: COMMON NORMALS: full ROM GENERAL: Yes normal visual inspection and Yes trachea midline OTHER: -contracted, leans to the L chronically Resp: COMMON NORMALS: normal respiratory effort, No retractions and No use of accessory muscles EFFORT & INSPECTION: Yes tachypneic AUSCULTATION: rales and diminished lung sounds OTHER: -on vent support (400/28%/8); ETT-23 cm @ lip. Breathing over vent Cardio: COMMON NORMALS: S1 normal heart sound present, S2 normal heart sound present and No murmurs present (Cardio) RATE: tachycardic RHYTHM: abnormal rhythm irregularly irregular HEART SOUNDS: S1 normal heart sound present and S2 normal heart sound present GI: COMMON NORMALS: Normal to inspection, nondistended, normoactive bowel sounds present and Soft to palpation INSPECTION: Yes central obesity PALPATION: Yes Soft to palpation and Yes Hernia present ventral OTHER: -Ivana ble to gauge tenderness but does not overtly grimace or wince during palpation : BLADDER/KIDNEY EXAM: Yes catheter in place Catheter type (Female): urethral EXTERNAL FEMALE EXAM: Yes Hernia present OTHER: -Right femoral central line Extremity: COMMON NORMALS: normal to inspection, full ROM and no clubbing, cyanosis or edema; negative for no pedal edema NARRATIVE EXTREMITY EXAM: -Bed-bound at baseline -Chronic bilateral lower extremity lymphedema GENERAL: Yes edema (1-2+ pitting edema of bilateral LEs) Neuro: SENSORIUM/ORIENTATION: Yes alert OTHER: -baseline tremor of RUE Psych: ACTIVITY/MOTOR BEHAVIOR: Yes restless (intermittently) OTHER: -low threshold for anxiety Skin: COMMON NORMALS: no jaundice, no petechiae and no mottling NARRATIVE SKIN EXAM: -Scattered bruising -chronic wounds involving L calf, anterior leg, dorsum of foot with some areas of superficial slough but primarily good granulation tissue. -L heel ulcer; bone exposed, slough -weeping edema -chronic stasis dermatitis Data : 05/27/20 03:43 05/27/20 03:43 Micro: Microbiology 05/25/20 18:15 Blood Culture - Preliminary Blood NEGATIVE TO DATE 05/25/20 18:20 Blood Culture - Preliminary Blood NEGATIVE TO DATE 05/21/20 14:05 Blood Culture - Final Blood NO GROWTH AFTER 5 DAYS 05/21/20 14:00 Blood Culture - Final Blood NO GROWTH AFTER 5 DAYS 05/24/20 13:20 Urine Culture - Preliminary Urine,Clean Catch Gram Negative Rods Gram Negative Rods#2 05/26/20 04:26 Gram Stain - Final Sputum - Endotracheal Tube Aspirate A&P Assessment and plan (1) Septic shock: -Noted significant leukocytosis, lactic acidosis, with associated acute respiratory failure, acute metabolic encephalopathy, hypotension, acute renal impairment, anuria, fever -Noted to have decreased ejection fraction of 30-35% on limited echo which is likely contributing to overall clinical decompensation -on pressor support; decreasing requirement; off dobutamine, weaning off levophed -Close monitoring of vital signs -intubated due to continued decompensation and fluid overload (05/25); remains on vent support -Unclear source of infection currently with noted leukocytosis, lactic acidosis, suspicion clinically for and skin source given continued evidence of UTI and known LE wounds; on Zyvox, Zosyn, metronidazole -repeat blood cx prelim negative; previous cultures grew VRE Enterococcus faecium -had PICC line in place before; culture of tip negative -repeat UA shows continued evidence of infection; urine cx-GNRs, pending ID & sensitivity; previous cultures grew Joslyn albicans -Received 3 doses of albumin; give additional doses as needed -sputum cx-prelim negative; gram stain negative -COVID-19 test negative (05/14) -high grade temps overnight, Tmax-104.5 F, currently afebrile -may need additional debridement of LLE wounds Status: Acute (2) Acute respiratory failure: -intubated due to continued decompensation and fluid overload (05/25); remains on vent support -weaning trial when appropriate; not stable enough for this right now -daily CXR, ABG while on vent support -noted evidence of fluid overload on imaging; anuric, requiring dialysis -continued close monitoring of respiratory status -sputum cx-prelim negative; gram stain negative -COVID-19 test negative (05/14) Status: Acute Qualifiers: Respiratory failure complication: unspecified whether with hypoxia or hypercapnia Qualified Code(s): J96.00 - Acute respiratory failure, unspecified whether with hypoxia or hypercapnia (3) Acute kidney injury superimposed on CKD: -Noted to be anuric with worsening renal function -failed trial of IVF and developed fluid overload -has temporary dialysis catheter (R IJ); one session overnight -Has had issues in the past with acute renal impairment including during last admission -Continue to monitor urine output; remains marginal; has Patino catheter -Avoid nephrotoxins, renally dose meds -Nephrology evaluation appreciated -Baseline creatinine appears to be around 1-1.4 though has been as high as 5.7 in the past -in light of decreased EF, could be related to low output; on dobutamine -renal US: limited -PERRY on CKD stage 3 -UPEP, SPEP pending Status: Acute (4) Anasarca: -anasarca with total positive fluid balance of 10 L -anuric Status: Acute (5) Acute on chronic anemia: -baseline Hg appears to be 10-11 -required transfusion of 2 units PRBCs during last admission -Hg gradually dropping, anticipate need for transfusion of blood products; continue to monitor closely -continue to monitor for bleeding -off AC and antiplatelets Status: Acute (6) Stress-induced cardiomyopathy: -limited Echo: EF=30=35% Status: Acute (7) CVA (cerebral vascular accident): -CT head: chronic changes -carotid US: <50% bilateral ICA stenosis -off ASA due to GI bleed hx; on statin Status: Acute Qualifiers: CVA mechanism: unspecified Qualified Code(s): I63.9 - Cerebral infarction, unspecified (8) Elevated troponin level: -noted elevated troponins; likely type II due to demand ischemia -Cardiology evaluation appreciated -limited echo as noted above -previously on AC with Eliquis -will likely need outpatient stress testing Status: Acute (9) Intermittent atrial fibrillation: -tachycardic -telemetry monitoring -continue to monitor vital signs -on AC with Eliquis -Echo: EF=30-35% -off ASA due to GI bleed hx Status: Acute (10) Acute metabolic encephalopathy: -In light of continued clinical decompensation including development of septic shock Status: Acute (11) Hypotension: -As noted above Status: Acute Qualifiers: Hypotension type: unspecified hypotension type Qualified Code(s): I95.9 - Hypotension, unspecified (12) UTI (urinary tract infection): -repeat UA shows continued evidence of infection; urine cx-GNRs; previous cultures grew Joslyn albicans Status: Acute Qualifiers: Urinary tract infection type: acute cystitis Hematuria presence: wi thout hematuria Qualified Code(s): N30.00 - Acute cystitis without hematuria (13) High anion gap metabolic acidosis: -improving -continue to monitor Status: Acute Additional A&P Information -GERD -Morbid obesity: BMI-48 kg/m2 though overall has quite poor nutrition status as reflected by hypoalbuminemia which is contributing to lymphedema. -large hiatal hernia -Dyslipidemia; on statin -Chronic pain; on narcotics -Gram positive bacteremia secondary to LE cellulitis and acutely infected LLE wounds which were surgically debrided during last admission and additional bedside debridement on 05/21; blood cx grew VRE Enterococcus faecium. On Zyvox. B lood cx (05/21, 05/25): negative. Wound care with Santyl; continue to f/u at [facility] on d/c -Peripheral vascular disease; seen by Dr. Alejandre during previous admission, s/p peripheral angiogram with no noted significant vascular compromise noted. -COPD, not oxygen dependent at baseline -Vascular dementia -NIDDM type II; A1c-5.3; Accuchecks, ISS, hypoglycemia precautions. DM complicated by nephropathy, PVD, neuropathy -Hypothyroidism; on levothyroxine, TSH wnl -Fecal retention; enemas PRN -NPO -DVT ppx not done as due to bleeding risk is off AC and cannot have SCDs due to LE wounds -Dispo: Martir Stark -Code status: FULL code -continue ICU care due to critical illness -Very guarded prognosis Attestations Medical Necessity Statement*: Patient requires hospitalization for continued management of critical illness, remains on vent support, pressor support, IV antibiotics. Time Spent in Patient Care: Greater than 35 minutes (>than 50% of time spent in counselling and/or direct pt care on unit) . Critical Care Time: The high probability of a clinically significant, sudden or life threatening deterioration of the patient's [cardiovascular, respiratory] system(s) required my full and direct attention, intervention and personal management. The critical care time is as shown. This time is in addition to time spent performing any reported procedures but includes the following: [x] Data and vital sign review and interpretation [x] Patient assessment, examination and intervention [x] Documentation [x] Medication orders and management Critical Care Time (min): 30 Coding Level of Care Code Acute Licensed [employer] Real Estate Appraiser for Chg Fwd Diagnoses Septic shock A41.9; R65.21 Acute respiratory failure J96.00 Respiratory failure complication: unspecified whether with hypoxia or hypercapnia Acute kidney injury superimposed on CKD N17.9; N18.9 Anasarca R60.1 Acute on chronic anemia D64.9 Stress-induced cardiomyopathy I51.81 CVA (cerebral vascular accident) I63.9 CVA mechanism: unspecified Elevated troponin level R79.89 Intermittent atrial fibrillation I48.0 Acute metabolic encephalopathy G93.41 Hypotension I95.9 Hypotension type: unspecified hypotension type UTI (urinary tract infection) N30.00 Urinary tract infection type: acute cystitis Hematuria presence: without hematuria High anion gap metabolic acidosis E87.2
--- NOTE | 2020-05-27 08:08 | P.PN_ITS ---
Subjective Subjective: Interval history: sedated, intubated and fevers Medications: Reviewed: Yes Medication Review Details: Current Medications Acetaminophen (Tylenol) 650 mg ME Q6H PRN PRN Reason: FEVER Last Admin: 05/26/20 22:15 Dose: 650 mg Documented by: Apixaban (Eliquis) 2.5 mg PO BID [facility] Last Admin: 05/26/20 18:33 Dose: Not Given Documented by: Aripiprazole (Abilify) 5 mg PO BID [facility] Last Admin: 05/26/20 18:34 Dose: Not Given Documented by: Atorvastatin Calcium (Lipitor) 40 mg PO DAILY [facility] Last Admin: 05/26/20 09:39 Dose: Not Given Documented by: Collagenase (Santyl) 1 applic TOPICAL DAILY [facility] Last Admin: 05/26/20 18:33 Dose: 1 applic Documented by: Dextrose (D50w) 25 ml IVP ONCE PRN; Protocol PRN Reason: hypoglycemia protocol Dextrose (D50w) 50 ml IVP PRN PRN; Protocol PRN Reason: hypoglycemia protocol Fentanyl (Sublimaze) 25 mcg IVP Q2H PRN PRN Reason: Severe Pain or agitation Last Admin: 05/26/20 18:02 Dose: 25 mcg Documented by: Glucagon (Glucagen) 1 mg IM ONCE PRN; Protocol PRN Reason: Adult Acute Hypoglycemia Prot. Dextrose (D5w) 500 mls @ 100 mls/hr IV ONCE PRN; Protocol PRN Reason: Adult Acute Hypoglycemia Prot Last Infusion: 05/25/20 19:46 Dose: Infused Documented by: Sodium Chloride (Sodium Chloride 0.9%) 1,000 mls @ 100 mls/hr IV .Q10H [facility] Last Admin: 05/25/20 02:34 Dose: 100 mls/hr Documented by: Linezolid (Zyvox Premix) 600 mg in 300 mls @ 300 mls/hr IV Q12H [facility]; Protocol Last Infusion: 05/27/20 03:14 Dose: Infused Documented by: Albumin Human (Albumin) 12.5 gm in 50 mls @ 60 mls/hr IV PRN PRN PRN Reason: Hypotension and/or symptomatic Albumin Human (Albumin) 12.5 gm in 50 mls @ 60 mls/hr IV PRN PRN PRN Reason: Hypotension and/or symptomatic Dobutamine HCl/Dextrose (Dobutamine Drip) 500 mg in 250 mls @ 0 mls/hr IV .Q0M [facility]; Protocol Last Titration: 05/26/20 18:32 Dose: Infused Documented by: Norepinephrine Bitartrate 4 mg (/ Dextrose) 254 mls @ 0 mls/hr IV .Q0M [facility]; Protocol Last Titration: 05/27/20 03:00 Dose: Infused Documented by: Metronidazole (Flagyl Iv) 500 mg in 100 mls @ 100 mls/hr IV Q8H [facility]; Protocol Last Infusion: 05/27/20 03:14 Dose: Infused Documented by: Propofol (Diprivan) 1,000 mg in 100 mls @ 0 mls/hr IV .Q0M [facility]; Protocol Last Titration: 05/26/20 20:33 Dose: Infused Documented by: Piperacillin Sod/Tazobactam (Sod 3.375 gm/ Sodium Chloride) 50 mls @ 12.5 mls/hr IV Q8H [facility] Last Admin: 05/27/20 03:31 Dose: 12.5 mls/hr Documented by: Norepinephrine Bitartrate 8 mg (/ Dextrose) 508 mls @ 0 mls/hr IV .Q0M [facility]; Protocol Last Admin: 05/27/20 03:02 Dose: 6 mcg/min, 22.9 mls/hr Documented by: Fentanyl 1,000 mcg/ Sodium (Chloride) 100 mls @ 0 mls/hr IV .Q0M [facility]; Protocol Last Titration: 05/26/20 23:51 Dose: 25 mcg/hr, 2.5 mls/hr Documented by: Insulin Aspart (Novolog) 0 unit SUBCUT TIDWM [facility]; Protocol Last Admin: 05/27/20 07:23 Dose: Not Given Documented by: Levothyroxine Sodium (Synthroid) 125 mcg PO DAILY [facility] Last Admin: 05/26/20 09:40 Dose: Not Given Documented by: Magnesium Hydroxide (Milk Of Magnesia) 30 ml PO DAILY PRN PRN Reason: Constipation Metoprolol Tartrate (Lopressor) 50 mg PO BID [facility] Last Admin: 05/26/20 18:34 Dose: Not Given Documented by: Metoprolol Tartrate (Metoprolol Tartrate) 5 mg IV Q4H PRN PRN Reason: tachycardia Last Admin: 05/26/20 19:59 Dose: 5 mg Documented by: Midazolam HCl (Versed) 1 mg IVP Q2H PRN PRN Reason: AGITATION Last Admin: 05/26/20 18:01 Dose: 1 mg Documented by: Morphine Sulfate (Morphine) 1 mg IVP Q2H PRN PRN Reason: SEVERE PAIN Last Admin: 05/26/20 02:28 Dose: 1 mg Documented by: Multivitamins Therapeutic (Multivitamin Tab) 1 tab PO DAILY [facility] Last Admin: 05/26/20 09:40 Dose: Not Given Documented by: Neomycin/Polymyxin/Bacitracin (Neosporin Oint Tube) 1 applic TOPICAL BID PRN PRN Reason: with dressing changes Last Admin: 05/21/20 15:58 Dose: 1 applic Documented by: Non-Formulary Medication (Fluticasone Furoate-Vilanterol [Breo Ellipta]) 1 inh INHALATION DAILY [facility] Ondansetron HCl (Zofran) 4 mg PO TID PRN PRN Reason: Nausea Last Admin: 05/21/20 16:34 Dose: 4 mg Documented by: Oxycodone/Acetaminophen (Percocet 5-325 Mg) 1 tab PO Q4H PRN PRN Reason: Pain Last Admin: 05/25/20 01:41 Dose: 1 tab Documented by: Senna/Docusate Sodium (Senna-S) 1 tab PO DAILY [facility] Last Admin: 05/26/20 09:40 Dose: Not Given Documented by: Venlafaxine HCl (Effexor Xr) 150 mg PO DAILY [facility] Last Admin: 05/26/20 09:40 Dose: Not Given Documented by: Vitals/I&O/Wt Last Vital Signs Temp 98.8 F 05/27/20 07:28 Pulse 99 05/27/20 07:28 Resp 16 05/27/20 07:28 BP 97/60 05/27/20 07:28 Pulse Ox 99 05/27/20 07:28 05/26/20 05/27/20 05/27/20 22:59 06:59 14:59 Intake Total 1367.190 / 2448.036 503.55 / 2951.586 Output Total 61 / 91 85 / 176 50 / 50 Balance 1306.190 / 2357.036 418.55 / 2775.586 -50 / -50 Weight last 48 hrs Weight 127.006 kg Weight 125.645 kg Physical Exam Narrative: EXAM NARRATIVE: exam performed by RN as telemedicine visit -intubated, sedtaed, on levo@ 5 vent AC/tv 400/ fio2=28%, PEEP 8. rr 12 remains in afib w/HR 100 , BP low- to normal heent- nc/at, eomi, anicteric lungs ronchi b/l heart irreg irreg, +YANDY abd soft, + bs, nt ext legs swollen w/ lesions on left leg- q ulcer neuro- sedated, moving Data : 05/27/20 03:43 05/27/20 03:43 Micro: Microbiology 05/25/20 18:15 Blood Culture - Preliminary Blood NEGATIVE TO DATE 05/25/20 18:20 Blood Culture - Preliminary Blood NEGATIVE TO DATE 05/21/20 14:05 Blood Culture - Final Blood NO GROWTH AFTER 5 DAYS 05/21/20 14:00 Blood Culture - Final Blood NO GROWTH AFTER 5 DAYS 05/24/20 13:20 Urine Culture - Preliminary Urine,Clean Catch Gram Negative Rods Gram Negative Rods#2 05/26/20 04:26 Gram Stain - Final Sputum - Endotracheal Tube Aspirate A&P Additional A&P Information 69 year old female A fib, cva hx, dm, obesity, recent VRE bacteremia and ESBL UTI, and COPD. pt now w/ severe inc AGMA and PERRY 1. inc AGMA- likely sepsis related had lacatate of 9.2 improved to 4.2 w/ pressors and HD -repeat lactate 2. curently w/ resp alkalosis, and mild met acidosis or compensation 3. PERRY- likely atn -u/a hazy, 1 + prot, 3+ blood. 15-25 wbc- Q UTI -no ur eos -low ur na- she did not respond to ivf -concern for embolic disease- would need to be b/l -renal us w/o hydro -cpk 106 -s/p emergent hd -monitor uop and chemistries -send serologies, though less likely a GN -no emergent need for HD now- fio2 of 28%, ph 7.55, k 3.5, bun 15 3. cva and a fib per medicine and neuro -please have cardiology assess and attempt to slow HR 4. agree w/ boad spectrum abx- sepsis eval per medicine -q leg infection 5. tsh 6.68- acceptable for sepsis 6. wbc 13 7. anemia- consider tx 1U prbc check ldh 349, retic, haptoglobin, iron studies 8. hypocalcemia corrects given alb of 2 meds reviewed discussed w/ PLANT HR MANAGER Attestations Medical Necessity Statement*: septic shock, PERRY, VDRF Time Spent in Patient Care: 16 - 35 minutes Coding Level of Care Code Acute Crutching Contractor for Darek Ojeda
[2020-05-27] MEDS: midazolam 1 mg/mL INJ 2 mL IVP (08:36)
--- NOTE | 2020-05-27 11:24 | PC.NURSE ---
2200- RECEIVED CALL FROM PT SON, JAVIER TOUSSAINT, HE CHECKED ON HIS MOM'S STATUS, INQUIRED ABOUT DIALYSIS & WHEN TOLD THAT DR ELIAS DIDN'T BELIEVE DIALYSIS WAS NEEDED TODAY; JAVIER REQUESTED THAT HIS MOM BE TRANSFERRED TO ANOTHER FACILITY. DR CANNON NOTIFIED. 0159-ROUNDING DONE WITH PHYSICIANS. DR CANNON HAS ASKED DR CHRISTENSEN TO SEE PT D/T WOUND ON LEFT LOWER EXTREMITY. PT SON CALLED BACK REQUESTING TO SPEAK TO [facility] THAN LATER D/T SHE'S FILLING UP WITH FLUID INFORMED JAVIER THAT DR CHRISTENSEN WAS GOING TO ASSESS LAUREN'S FOOT & THEN DR CANNON WOULD CALL. HE THEN REQUESTED TO BE TRANSFERRED TO [facility].
--- NOTE | 2020-05-27 11:30 | PC.NURSE ---
Attempted to provide oral care to the patient, while attempting to insert a oral swab with suction, the patient tightens lips and prevents insertion of swab. Nurse was able to provide cleaning/moisture around mouth and lips.
[2020-05-27 11:38] LABS: Glucose Point of Care 126 mg/dL (70-110)
[2020-05-27 11:39] LABS: Glucose Point of Care 114 mg/dL (70-110)
[2020-05-27 11:46] LABS: PROTEIN, TOTAL 4.6 g/dL (6.1-8.1)
[2020-05-27 12:33] LABS: Hematocrit 22.7 % (37.0-47.0); Hemoglobin 7.2 g/dL (11.5-15.3)
[2020-05-27] MEDS: sodium chloride 0.9% 500 ML 999 ML IV (13:42)
--- NOTE | 2020-05-27 13:57 | P.PN_ITS ---
Subjective Subjective: Interval history: She remains intubated. She is on Fentanyl. Since yesterday; she is off dobutamine, levophed is down to 2. She was febrile last night with temperature>104. No dialysis yesterday based on follow up labs. Hb has dropped to 7.2. She received enema yesterday and had BM. Not responsive to fluid challenge. UO has not improved much. Her HR is running 90's-100's currently. She has no NG tube. Medications: Reviewed: Yes Medication Review Details: Current Medications Acetaminophen (Tylenol) 650 mg MS Q6H PRN PRN Reason: FEVER Last Admin: 05/26/20 22:15 Dose: 650 mg Documented by: Apixaban (Eliquis) 2.5 mg PO BID [facility] Last Admin: 05/27/20 09:23 Dose: Not Given Documented by: Aripiprazole (Abilify) 5 mg PO BID [facility] Last Admin: 05/27/20 09:23 Dose: Not Given Documented by: Atorvastatin Calcium (Lipitor) 40 mg PO DAILY [facility] Last Admin: 05/27/20 09:24 Dose: Not Given Documented by: Collagenase (Santyl) 1 applic TOPICAL DAILY [facility] Last Admin: 05/26/20 18:33 Dose: 1 applic Documented by: Dextrose (D50w) 25 ml IVP ONCE PRN; Protocol PRN Reason: hypoglycemia protocol Dextrose (D50w) 50 ml IVP PRN PRN; Protocol PRN Reason: hypoglycemia protocol Fentanyl (Sublimaze) 25 mcg IVP Q2H PRN PRN Reason: Severe Pain or agitation Last Admin: 05/26/20 18:02 Dose: 25 mcg Documented by: Glucagon (Glucagen) 1 mg IM ONCE PRN; Protocol PRN Reason: Adult Acute Hypoglycemia Prot. Dextrose (D5w) 500 mls @ 100 mls/hr IV ONCE PRN; Protocol PRN Reason: Adult Acute Hypoglycemia Prot Last Infusion: 05/25/20 19:46 Dose: Infused Documented by: Sodium Chloride (Sodium Chloride 0.9%) 1,000 mls @ 100 mls/hr IV .Q10H [facility] Last Admin: 05/25/20 02:34 Dose: 100 mls/hr Documented by: Linezolid (Zyvox Premix) 600 mg in 300 mls @ 300 mls/hr IV Q12H [facility]; Protocol Last Infusion: 05/27/20 03:14 Dose: Infused Documented by: Albumin Human (Albumin) 12.5 gm in 50 mls @ 60 mls/hr IV PRN PRN PRN Reason: Hypotension and/or symptomatic Albumin Human (Albumin) 12.5 gm in 50 mls @ 60 mls/hr IV PRN PRN PRN Reason: Hypotension and/or symptomatic Dobutamine HCl/Dextrose (Dobutamine Drip) 500 mg in 250 mls @ 0 mls/hr IV .Q0M [facility]; Protocol Last Titration: 05/26/20 18:32 Dose: Infused Documented by: Norepinephrine Bitartrate 4 mg (/ Dextrose) 254 mls @ 0 mls/hr IV .Q0M [facility]; Protocol Last Titration: 05/27/20 13:07 Dose: 2 mcg/min, 7.6 mls/hr Documented by: Metronidazole (Flagyl Iv) 500 mg in 100 mls @ 100 mls/hr IV Q8H [facility]; Protocol Last Infusion: 05/27/20 09:39 Dose: Infused Documented by: Propofol (Diprivan) 1,000 mg in 100 mls @ 0 mls/hr IV .Q0M [facility]; Protocol Last Titration: 05/26/20 20:33 Dose: Infused Documented by: Piperacillin Sod/Tazobactam (Sod 3.375 gm/ Sodium Chloride) 50 mls @ 12.5 mls/hr IV Q8H [facility] Last Admin: 05/27/20 11:21 Dose: 12.5 mls/hr Documented by: Norepinephrine Bitartrate 8 mg (/ Dextrose) 508 mls @ 0 mls/hr IV .Q0M [facility]; Protocol Last Admin: 05/27/20 03:02 Dose: 6 mcg/min, 22.9 mls/hr Documented by: Fentanyl 1,000 mcg/ Sodium (Chloride) 100 mls @ 0 mls/hr IV .Q0M [facility]; Protocol Last Titration: 05/27/20 09:34 Dose: 50 mcg/hr, 5 mls/hr Documented by: Insulin Aspart (Novolog) 0 unit SUBCUT TIDWM [facility]; Protocol Last Admin: 05/27/20 11:37 Dose: Not Given Documented by: Levothyroxine Sodium (Synthroid) 125 mcg PO DAILY [facility] Last Admin: 05/27/20 09:24 Dose: Not Given Documented by: Lorazepam (Ativan) 2 mg IVP Q4H PRN PRN Reason: ANXIETY Magnesium Hydroxide (Milk Of Magnesia) 30 ml PO DAILY PRN PRN Reason: Constipation Metoprolol Tartrate (Lopressor) 50 mg PO BID [facility] Last Admin: 05/27/20 09:24 Dose: Not Given Documented by: Metoprolol Tartrate (Metoprolol Tartrate) 5 mg IV Q4H PRN PRN Reason: tachycardia Last Admin: 05/26/20 19:59 Dose: 5 mg Documented by: Midazolam HCl (Versed) 1 mg IVP Q2H PRN PRN Reason: AGITATION Last Admin: 05/27/20 08:36 Dose: 1 mg Documented by: Morphine Sulfate (Morphine) 1 mg IVP Q2H PRN PRN Reason: SEVERE PAIN Last Admin: 05/26/20 02:28 Dose: 1 mg Documented by: Multivitamins Therapeutic (Multivitamin Tab) 1 tab PO DAILY [facility] Last Admin: 05/27/20 09:24 Dose: Not Given Documented by: Neomycin/Polymyxin/Bacitracin (Neosporin Oint Tube) 1 applic TOPICAL BID PRN PRN Reason: with dressing changes Last Admin: 05/21/20 15:58 Dose: 1 applic Documented by: Non-Formulary Medication (Fluticasone Furoate-Vilanterol [Breo Ellipta]) 1 inh INHALATION DAILY [facility] Ondansetron HCl (Zofran) 4 mg PO TID PRN PRN Reason: Nausea Last Admin: 05/21/20 16:34 Dose: 4 mg Documented by: Oxycodone/Acetaminophen (Percocet 5-325 Mg) 1 tab PO Q4H PRN PRN Reason: Pain Last Admin: 05/25/20 01:41 Dose: 1 tab Documented by: Senna/Docusate Sodium (Senna-S) 1 tab PO DAILY [facility] Last Admin: 05/27/20 09:25 Dose: Not Given Documented by: Venlafaxine HCl (Effexor Xr) 150 mg PO DAILY [facility] Last Admin: 05/27/20 09:25 Dose: Not Given Documented by: Vitals/I&O/Wt Last Vital Signs Temp 99 F 05/27/20 12:00 Pulse 96 05/27/20 12:00 Resp 16 05/27/20 12:00 BP 93/60 05/27/20 12:00 Pulse Ox 99 05/27/20 12:00 05/26/20 05/27/20 05/27/20 22:59 06:59 14:59 Intake Total 1367.190 / 2448.036 503.55 / 2951.586 237.232 / 237.232 Output Total 61 / 91 85 / 176 110 / 110 Balance 1306.190 / 2357.036 418.55 / 2775.586 127.232 / 127.232 Intake & Output 05/25/20 05/26/20 05/27/20 05/28/20 06:59 06:59 06:59 06:59 Intake Total 1928.333 / 7093.823 1622.029 / 2707.029 2951.586 / 2951.586 237.232 / 237.232 Output Total 270 / 270 127 / 127 176 / 176 110 / 110 Balance 1658.333 / 3142.906 3556.029 / 2580.029 2775.586 / 2775.586 127.232 / 127.232 Weight 277 lb 280 lb Weight last 48 hrs Weight 280 lb Weight 277 lb Physical Exam Const: GENERAL APPEARANCE: patient mechanically ventilated NUTRITIONAL APPEARANCE: obese Resp: COMMON NORMALS: clear to auscultation bilaterally (anteriorly) AUSCULTATION: clear to auscultation bilaterally (anteriorly), crackles, no rales and no rhonchi Cardio: PALPATION: abnormal PMI RATE: tachycardic RHYTHM: abnormal rhythm irregularly irregular HEART SOUNDS: no gallops and no murmurs MARGOTH PHERAL PULSES: radial pulses present, posterior tibial pulses present and dorsalis pedis present GI: COMMON NORMALS: Soft to palpation PALPATION: Yes Soft to palpation Extremity: GENERAL: Yes edema (1-2+ bilateral leg), No pallor and Yes other findings (leg ulcers (left foot dressed), erythema present) Neuro: WAI COMA SCALE: GCS not evaluated (patient currently sedated; spontaneous eye opening and extremity movement present) Data : 05/27/20 12:28 05/27/20 03:43 Micro: Microbiology 05/24/20 13:20 Urine Culture - Preliminary Urine,Clean Catch Gram Negative Rods Gram Negative Rods#2 05/25/20 16:33 Urine Culture - Preliminary Urine,Clean Catch Gram Negative Rods Gram Negative Rods#2 05/25/20 18:15 Blood Culture - Preliminary Blood NEGATIVE TO DATE 05/25/20 18:20 Blood Culture - Preliminary Blood NEGATIVE TO DATE 05/21/20 14:05 Blood Culture - Final Blood NO GROWTH AFTER 5 DAYS 05/21/20 14:00 Blood Culture - Final Blood NO GROWTH AFTER 5 DAYS A&P Assessment and plan (1) Septic shock: Shock likely septic in etiology -recent blood cx negative so far, Urine cx with gram negative rods. -currently on low dose levophed. Dobutamine stopped. Wean off pressors as tolerated -On broad spectrum antibiotics for sepsis. Status: Acute (2) Atrial fibrillation: Atrial fib with RVR; did not get PO metoprolol. start on low dose metoprolol 2.5 -5 mg IV Q 4 Hr PRN. -Eliquis held given h/o transfusion dependent anemia and drop in H&H. -recommend starting on heparin gtt once feasible. Status: Acute Qualifiers: Atrial fibrillation type: longstanding persistent Qualified Code(s): I48.11 - Longstanding persistent atrial fibrillation (3) Cardiomyopathy: Likely stress induced cardiomyopathy. -However, underlying CAD is a possibility. She has h/o CVA and PAD. -Not a good candidate now for any further work up with worsening renal function. -She has some volume overload in setting of ARF, however I do not think this is decompensated CHF that we are dealing with right now. -Her FiO2 requirement is at 0.28. -will repeat limited TTE with contrast. Status: Acute Qualifiers: Cardiomyopathy type: unspecified Qualified Code(s): I42.9 - Car diomyopathy, unspecified (4) Acute renal failure: Status: Acute Qualifiers: Acute renal failure type: with acute tubular necrosis Qualified Code(s): N17.0 - Acute kidney failure with tubular necrosis (5) NSTEMI (non-ST elevated myocardial infarction): Likely type 2 in etiology due to underlying sepsis. Status: Acute (6) Type 2 diabetes mellitus: Status: Chronic Qualifiers: Diabetes mellitus complication status: with other specified complication Diabetes mellitus senior living insulin use: without watcher automat long goods use Qualified Code(s): E11.69 - Type 2 diabetes mellitus with other specified complication (7) Acute metabolic encephalopathy: Status: Acute Additional A&P Information Anion gap Metabolic acidosis Lactic acidosis: Patient was on and later discharged on Zyvox on 05/15/20; it can potentially cause lactic acidosis. Acute respiratory failure: intubated given altered mental status H/O VRE becteremia in 04/2020 h/o ESBL UTI Underlying PNA ? Infected left foot ulcer : ?osteomyelitis Anemia Hypokalemia : replaced Hypomagnesemia: replaced Attestations Medical Necessity Statement*: Remains critically ill. Coding Level of Care Code Acute Carbon Setter for [facility] Diagnoses Septic shock A41.9; R65.21 Atrial fibrillation I48.11 Atrial fibrillation type: longstanding persistent Cardiomyopathy I42.9 Cardiomyopathy type: unspecified Acute renal failure N17.0 Acute renal failure type: with acute tubular necrosis NSTEMI (non-ST elevated myocardial infarction) I21.4 Type 2 diabetes mellitus E11.69 Diabetes mellitus complication status: with other specified complication Diabetes mellitus senior living insulin use: without watcher automat long goods use Acute metabolic encephalopathy G93.41
--- NOTE | 2020-05-27 13:57 | PC.NURSE ---
FLUID CHALLENGE DONE. PT IS NOT FLUID RESPONSIVE. SVI DELTA -4.1% DR GALLEGOS NOTIFIED.
--- NOTE | 2020-05-27 14:14 | PC.NURSE ---
replaced absorbent pads under patients arms. They had become damp due to weeping of skin.
[2020-05-27] MEDS: collagenase oint 30 gm 1 APPLIC TOPICAL (14:28)
--- NOTE | 2020-05-27 14:34 | PC.NURSE ---
Removed Left leg dressings for assessment with Dr Vela. Redressed wound. Applied Santly and ABD to the stage 4 wound involving the heel. Applied Hydrofera Blue moistened with saline to circumferential stage 2 wounds. Wrapped leg in Kerlix.
[2020-05-27] MEDS: FUROsemide 10 mg/mL SDV 10mL 80 MG IVP (15:15)
--- NOTE | 2020-05-27 15:36 | PC.NURSE ---
SPOKE WITH SON JAVIERCori TOUSSAINT IN REGARDS TO VERBAL CONSENT FOR LIMITED ECHO W/ OPTISON, CONSENT RECEIVED. WITNESSED BY MYSELF & ANTONIO RN. ULTRASOUND NOTIFIED OF CONSENT. HERE TO PERFORM EXAM. PT TOLERATED WELL
[2020-05-27] MEDS: perflutren protein-a microsphr 0.22 mg/mL SDV 3 mL 2 ML IV (15:38)
--- NOTE | 2020-05-27 17:31 | PC.OT ---
OT note: Pt intubated and sedated. Will hold at this time.
--- NOTE | 2020-05-27 18:23 | PC.NURSE ---
LEVOPHED OFF @ APPROXIMATELY 1600.
[2020-05-27] MEDS: albumin 12.5 GM/50 ML VIAL IV (18:26)
[2020-05-27 18:29] LABS: Glucose Point of Care 86 mg/dL (70-110)
--- NOTE | 2020-05-27 18:40 | PC.NURSE ---
turned patient and replaced absorbent pads underneath.
--- NOTE | 2020-05-27 19:10 | USCV_ITS ---
Leatha Emery Age: 69 Gender: F : 1950 Exam Date: 05/27/2020 15:30 Ordering Phys: Angle Bell MD Technologist: Lynn Hartley Exam Location: [facility] [place] Indication: EVAL LV FUNC Aortic Velocity @ SMA (cm/s) CONCLUSIONS This is a limited echo with contrast to assess for LV systolic function. LV systolic function is normal with EF of 60-65%. No regional wall motion abnormalities are noted. Steve Kevin MD Edited by: CV Implementation Manager (Electronically Signed) Final Date: 27 May 2020 17:08 Amended: 29 May 2020 07:42 C
[2020-05-27] MEDS: sodium chloride 0.9% (100 ml) 100 ML (19:37)
[2020-05-27 21:35] LABS: Glucose Point of Care 82 mg/dL (70-110)
[2020-05-28] VITALS (80 sets, daily range): BP systolic 99–154; BP diastolic 66–110; PULSE 87–130; RESP 12–18; TEMP 36.6–37.2; O2SAT 78–99
[2020-05-28] MEDS: metroNIDAZOLE IV 500 MG/100 ML PREMIX 100 MG IV ×2 (00:41→08:17)
[2020-05-28] MEDS: linezolid premix 600 MG/300 ML PREMIX 300 MG IV (02:07)
[2020-05-28] MEDS: piperacillin-tazobactam 3.375 GM in sodium chloride 0.9% (plus) 50 ML IV (03:43)
[2020-05-28 04:15] LABS: Basophils % 0.3 %; Eosinophils # 0.4 10^3/uL (0.0-0.8); Eosinophils % 4.1 %; Lymphocytes # 2.1 10^3/uL (0.8-4.8); Mean Corpuscular HGB Conc 31.9 g/dL (30.0-36.0); Mean Corpuscular Hemoglobin 29.4 pg (28.0-34.0); Mean Corpuscular Volume 92.3 fL (81-99); Mean Platelet Volume 9.7 fL (7.4-10.4); Monocytes # 0.4 10^3/uL (0.2-0.9); Monocytes % 3.4 %; Neutrophils # 7.38 10^3/uL (1.8-7.7); Neutrophils % 71.8 %; Nucleated Red Blood Cells % 0 %; Platelet Count 139 10^3/cmm (130-400); Red Blood Count 2.21 10^6/uL (4.1-5.3); Red Cell Distribution Width 17.8 % (12.1-15.1); White Blood Count 10.3 10^3/uL (4.0-10.0)
[2020-05-28 04:39] LABS: Hematocrit 20.4 % (37.0-47.0); Hemoglobin 6.5 g/dL (11.5-15.3)
--- NOTE | 2020-05-28 04:44 | PC.NURSE ---
Critical Lab Hgb 6.3 Hct 20.4 reported to [facility]. to infuse one unit PRBC received
[2020-05-28 04:46] LABS: Magnesium 1.7 mg/dL (1.7-2.3); Phosphorus 3.4 mg/dL (2.5-4.5)
[2020-05-28 04:53] LABS: Alanine Aminotransferase 17 U/L (0-33); Albumin Level 2.3 g/dL (3.5-5.2); Alkaline Phosphatase 114 IU/L (35-105); Anion Gap 15.6 (5-19); Aspartate Amino Transferase 20 U/L (0-32); Blood Urea Nitrogen 19 mg/dL (8-23); Calcium 7.1 mg/dL (8.5-10.5); Carbon Dioxide 23 mmol/L (22-29); Chloride 99 mmol/L (98-107); Globulin 2.5 g/dL (1.3-4.6); Glucose 97 mg/dL (65-115); Osmolality Calculated 274 mOsm/kg (285-295); Potassium 3.6 mmol/L (3.5-5.1); Sodium 134 mmol/L (136-145); Total Bilirubin 0.8 mg/dL (0.15-1.2); Total Protein 4.8 g/dL (6.6-8.7)
--- NOTE | 2020-05-28 06:00 | XR_ITS ---
WS: [id number] Portable AP upright chest, 05/28/2020 Clinical Data: on vent support Comparison: Portable chest, 05/27/2020 Findings: The endotracheal tube remains above the brynn. There is probable atelectasis and/or pneumo aster in the retrocardiac area. The right lung shows mild pulmonary vascular congestion. No pneumothora x is present. There are monitor leads on the chest wall. There is a dextroscoliosis of the thoracic s pine. XR/XR chest 1V portable [id number] Impression: 1. Endotracheal tube above the brynn. 2. No change from yesterday's portable chest.
[2020-05-28 06:59] LABS: ABG PCO2 34.1 mmHg (35-45); ABG PH Result 7.45 (7.35-7.45); Arterial Blood Gas Hematocrit 29.7 % (37-47); Base Excess ABG -0.4 mmol/L (-2.0-2.0); Blood Gas Sample Site Brachial, right; Blood Gas Sample Type Arterial; HCO3 ABG 23.4 mmol/L (22-26); Oxygen Device VENT; PO2 ABG 67.5 mmHg (80.0-100.0)
--- NOTE | 2020-05-28 07:15 | P.PN_ITS ---
Subjective Subjective: Interval history: sedated and intubated Medications: Reviewed: Yes Medication Review Details: Current Medications Acetaminophen (Tylenol) 650 mg SD Q6H PRN PRN Reason: FEVER Last Admin: 05/26/20 22:15 Dose: 650 mg Documented by: Apixaban (Eliquis) 2.5 mg PO BID [facility] Last Admin: 05/27/20 18:18 Dose: Not Given Documented by: Aripiprazole (Abilify) 5 mg PO BID [facility] Last Admin: 05/27/20 18:18 Dose: Not Given Documented by: Atorvastatin Calcium (Lipitor) 40 mg PO DAILY [facility] Last Admin: 05/27/20 09:24 Dose: Not Given Documented by: Collagenase (Santyl) 1 applic TOPICAL DAILY [facility] Last Admin: 05/27/20 14:28 Dose: 1 applic Documented by: Dextrose (D50w) 25 ml IVP ONCE PRN; Protocol PRN Reason: hypoglycemia protocol Dextrose (D50w) 50 ml IVP PRN PRN; Protocol PRN Reason: hypoglycemia protocol Fentanyl (Sublimaze) 25 mcg IVP Q2H PRN PRN Reason: Severe Pain or agitation Last Admin: 05/26/20 18:02 Dose: 25 mcg Documented by: Glucagon (Glucagen) 1 mg IM ONCE PRN; Protocol PRN Reason: Adult Acute Hypoglycemia Prot. Dextrose (D5w) 500 mls @ 100 mls/hr IV ONCE PRN; Protocol PRN Reason: Adult Acute Hypoglycemia Prot Last Infusion: 05/25/20 19:46 Dose: Infused Documented by: Sodium Chloride (Sodium Chloride 0.9%) 1,000 mls @ 100 mls/hr IV .Q10H [facility] Last Admin: 05/25/20 02:34 Dose: 100 mls/hr Documented by: Linezolid (Zyvox Premix) 600 mg in 300 mls @ 300 mls/hr IV Q12H [facility]; Protocol Last Admin: 05/28/20 02:07 Dose: 300 mls/hr Documented by: Albumin Human (Albumin) 12.5 gm in 50 mls @ 60 mls/hr IV PRN PRN PRN Reason: Hypotension and/or symptomatic Albumin Human (Albumin) 12.5 gm in 50 mls @ 60 mls/hr IV PRN PRN PRN Reason: Hypotension and/or symptomatic Dobutamine HCl/Dextrose (Dobutamine Drip) 500 mg in 250 mls @ 0 mls/hr IV .Q0M [facility]; Protocol Last Titration: 05/26/20 18:32 Dose: Infused Documented by: Norepinephrine Bitartrate 4 mg (/ Dextrose) 254 mls @ 0 mls/hr IV .Q0M [facility]; Protocol Last Titration: 05/27/20 16:00 Dose: 0 mcg/min, 0 mls/hr Documented by: Metronidazole (Flagyl Iv) 500 mg in 100 mls @ 100 mls/hr IV Q8H [facility]; Protocol Last Admin: 05/28/20 00:41 Dose: 100 mls/hr Documented by: Propofol (Diprivan) 1,000 mg in 100 mls @ 0 mls/hr IV .Q0M [facility]; Protocol Last Titration: 05/26/20 20:33 Dose: Infused Documented by: Piperacillin Sod/Tazobactam (Sod 3.375 gm/ Sodium Chloride) 50 mls @ 12.5 mls/hr IV Q8H [facility] Last Admin: 05/28/20 03:43 Dose: 12.5 mls/hr Documented by: Norepinephrine Bitartrate 8 mg (/ Dextrose) 508 mls @ 0 mls/hr IV .Q0M [facility]; Protocol Last Admin: 05/27/20 03:02 Dose: 6 mcg/min, 22.9 mls/hr Documented by: Fentanyl 1,000 mcg/ Sodium (Chloride) 100 mls @ 0 mls/hr IV .Q0M [facility]; Protocol Last Titration: 05/27/20 22:05 Dose: 50 mcg/hr, 5 mls/hr Documented by: Insulin Aspart (Novolog) 0 unit SUBCUT TIDWM [facility]; Protocol Last Admin: 05/27/20 18:50 Dose: Not Given Documented by: Levothyroxine Sodium (Synthroid) 125 mcg PO DAILY [facility] Last Admin: 05/27/20 09:24 Dose: Not Given Documented by: Lorazepam (Ativan) 2 mg IVP Q4H PRN PRN Reason: ANXIETY Magnesium Hydroxide (Milk Of Magnesia) 30 ml PO DAILY PRN PRN Reason: Constipation Metoprolol Tartrate (Lopressor) 50 mg PO BID [facility] Last Admin: 05/27/20 18:19 Dose: Not Given Documented by: Metoprolol Tartrate (Metoprolol Tartrate) 5 mg IV Q4H PRN PRN Reason: tachycardia Last Admin: 05/26/20 19:59 Dose: 5 mg Documented by: Midazolam HCl (Versed) 1 mg IVP Q2H PRN PRN Reason: AGITATION Last Admin: 05/27/20 08:36 Dose: 1 mg Documented by: Morphine Sulfate (Morphine) 1 mg IVP Q2H PRN PRN Reason: SEVERE PAIN Last Admin: 05/26/20 02:28 Dose: 1 mg Documented by: Multivitamins Therapeutic (Multivitamin Tab) 1 tab PO DAILY [facility] Last Admin: 05/27/20 09:24 Dose: Not Given Documented by: Neomycin/Polymyxin/Bacitracin (Neosporin Oint Tube) 1 applic TOPICAL BID PRN PRN Reason: with dressing changes Last Admin: 05/21/20 15:58 Dose: 1 applic Documented by: Non-Formulary Medication (Fluticasone Furoate-Vilanterol [Breo Ellipta]) 1 inh INHALATION DAILY [facility] Ondansetron HCl (Zofran) 4 mg PO TID PRN PRN Reason: Nausea Last Admin: 05/21/20 16:34 Dose: 4 mg Documented by: Senna/Docusate Sodium (Senna-S) 1 tab PO DAILY [facility] Last Admin: 05/27/20 09:25 Dose: Not Given Documented by: Venlafaxine HCl (Effexor Xr) 150 mg PO DAILY [facility] Last Admin: 05/27/20 09:25 Dose: Not Given Documented by: Vitals/I&O/Wt Last Vital Signs Temp 98.2 F 05/28/20 06:51 Pulse 108 H 05/28/20 06:51 Resp 13 05/28/20 06:51 BP 126/90 05/28/20 06:51 Pulse Ox 97 05/28/20 06:51 05/27/20 05/28/20 05/28/20 22:59 06:59 14:59 Intake Total 544.188 / 781.420 450 / 1231.420 Output Total 120 / 230 150 / 380 Balance 424.188 / 551.420 300 / 851.420 Weight last 48 hrs Weight 127.459 kg Weight 127.006 kg Physical Exam Narrative: EXAM NARRATIVE: exam performed by RN as telemedicine visit -intubated, sedtaed, off of pressors, responds to pain vent AC/tv 400/ fio2=28%, PEEP 8. rr 12 remains in afib w/HR 100 heent- nc/at, eomi, anicteric lungs ronchi b/l heart irreg irreg, +YANDY abd soft, + bs, nt ext legs swollen w/ lesions on left leg- q ulcer neuro- sedated, moving more swollen Data : 05/28/20 03:42 05/28/20 03:42 Micro: Microbiology 05/26/20 04:26 Gram Stain - Final Sputum - Endotracheal Tube Aspirate Sputum Culture - Preliminary 05/24/20 13:20 Urine Culture - Preliminary Urine,Clean Catch Gram Negative Rods Gram Negative Rods#2 05/25/20 16:33 Urine Culture - Preliminary Urine,Clean Catch Gram Negative Rods Gram Negative Rods#2 A&P Additional A&P Information 69 year old female A fib, cva hx, dm, obesity, recent VRE bacteremia and ESBL UTI, and COPD. pt now w/ severe inc AGMA and PERRY 1. inc AGMA- likely sepsis related had lacatate of 9.2 improved to 4.2 w/ pressors and HD -improved. bicarb 23 2. curently w/ resp alkalosis, -start lasix 3. PERRY- likely atn -u/a hazy, 1 + prot, 3+ blood. 15-25 wbc- Q UTI -no ur eos -low ur na- she did not respond to ivf -concern for embolic disease- would need to be b/l -renal us w/o hydro -cpk 106 -s/p emergent hd on 05/25 -monitor uop and chemistries -give lsix -send serologies, though less likely a GN -no emergent need for HD now- fio2 of 28%, ph 7.45, k 3.6, bun 19 -howee=fuad, she is liters positive, start lasix and monitor 3. cva and a fib per medicine and neuro -per caardiology -stress induced cardiomyopathy 4. agree w/ boad spectrum abx- sepsis eval per medicine -q leg infection 5. tsh 6.68- acceptable for sepsis 6. anemia- getting her 2nd 1U prbc,17, ferritin 619- unlikely hemolysisi. and getting iron w/ blood tx check ldh 349, retic, haptoglobin 278, iron sat -IF NEEDS A CONTRAST CT SCAN, CAN DIALYZE AFTERWARDS 8. hypocalcemia corrects given alb of 2 meds reviewed discussed w/ [employer] Attestations Medical Necessity Statement*: vdrf, anemia, infection, a fib, perry- critically ill Time Spent in Patient Care: 16 - 35 minutes Coding Level of Care Code Acute Avionics Electrical Engineer for Darek Ojeda
[2020-05-28] MEDS: midazolam 1 mg/mL INJ 2 mL IVP ×2 (07:32→14:51)
[2020-05-28] MEDS: sodium chloride 0.9% (100 ml) 100 ML (07:36)
[2020-05-28 07:43] LABS: Glucose Point of Care 80 mg/dL (70-110)
[2020-05-28] MEDS: FUROsemide 100 MG in sodium chloride 0.9% 40 ML IV ×2 (08:16→21:18)
[2020-05-28] MEDS: FUROsemide 10 mg/mL SDV 4mL 40 MG IVP (08:16)
--- NOTE | 2020-05-28 08:29 | P.PN_ITS ---
Subjective Subjective: Interval history: Received 1 unit of PRBCs overnight and was receiving a second unit this morning due to persistent anemia with a hemoglobin of 6.5 this morning. Slight leukocytosis with a white count of 10.3. Normal electrolytes, stable renal function, anion gap closed. Has remained off pressor support with stable blood pressures. Afebrile throughout the night. Remains on vent support with FiO2 of 28%. Had 150 mL urine output overnight, total positive fluid balance of 11.3 L. Received a dose of Lasix and is to be started on a Lasix drip per nephrology. Urine cultures have resulted growing ESBL E. coli and pseudomonas aeruginosa. Blood culture remains negative, sputum culture is prelim negative as well. She is on mild sedation with fentanyl. Medications: Reviewed: Yes Medication Review Details: Active Medications Generic Name Dose Route Start Last Admin Trade Name Freq PRN Reason Stop Dose Admin Acetaminophen 650 mg 05/26/20 22:03 05/26/20 22:15 Tylenol [place] 650 mg Q6H PRN Administration FEVER Apixaban 2.5 mg 05/25/20 18:00 05/28/20 07:51 Eliquis PO Not Given BID [facility] Aripiprazole 5 mg 05/22/20 18:00 05/28/20 07:52 Abilify PO Not Given BID [facility] Atorvastatin Calci um 40 mg 05/21/20 13:00 05/28/20 07:52 Lipitor PO Not Given DAILY [facility] Collagenase 1 applic 05/24/20 17:00 05/27/20 14:28 Santyl TOPICAL 1 applic DAILY [facility] Administration Dextrose 25 ml 05/21/20 13:50 D50w IVP ONCE PRN hypoglycemia prot ocol Protocol Dextrose 50 ml 05/21/20 13:50 D50w IVP PRN PRN hypoglycemia prot ocol Protocol Fentanyl 25 mcg 05/26/20 08:32 05/26/20 18:02 Sublimaze IVP 25 mcg Q2H PRN Administration Severe Pain or ag itation Glucagon 1 mg 05/21/20 13:50 Glucagen IM ONCE PRN Adult Acute Hypog lycemia Prot. Protocol Dextrose 500 mls @ 100 mls /hr 05/21/20 13:50 05/25/20 19:46 D5w IV Infused ONCE PRN Infusion Adult Acute Hypog lycemia Prot Protocol Linezolid 600 mg in 300 mls @ 300 mls/hr 05/25/20 14:00 05/28/20 02:07 Zyvox Premix IV 300 mls/hr Q12H [facility] Administration Protocol Albumin Human 12.5 gm in 50 mls @ 60 mls/hr 05/25/20 16:33 Albumin IV PRN PRN Hypotension and/o r symptomatic Albumin Human 12.5 gm in 50 mls @ 60 mls/hr 05/25/20 17:21 Albumin IV PRN PRN Hypotension and/o r symptomatic Norepinephrine Bit artrate 4 mg 254 mls @ 0 mls/h r 05/25/20 20:15 05/27/20 16:00 / Dextrose IV 0 mcg/min .Q0M [facility] 0 mls/hr Titration Protocol Per Protocol Norepinephrine Bit artrate 8 mg 508 mls @ 0 mls/h r 05/26/20 17:30 05/27/20 03:02 / Dextrose IV 6 mcg/min .Q0M [facility] 22.9 mls/hr Administration Protocol Per Protocol Fentanyl 1,000 mcg / Sodium 100 mls @ 0 mls/h r 05/26/20 19:30 05/27/20 22:05 Chloride IV 50 mcg/hr .Q0M [facility] 5 mls/hr Titration Protocol Per Protocol Furosemide 100 mg/ Sodium 50 mls @ 3 mls/hr 05/28/20 08:00 Chloride IV .[id number] [facility] Protocol 6 MG/HR Imipenem/Cilastati n Sodium 250 100 mls @ 200 mls /hr 05/28/20 09:00 mg/ Sodium Chlor migdalia IV Q6H [facility] Protocol Levofloxacin/Dextr ose 750 mg in 150 mls @ 100 mls/hr 05/28/20 08:30 Levaquin-D5w IV Q48H [facility] Protocol Insulin Aspart 0 unit 05/21/20 18:00 05/28/20 07:51 Novolog SUBCUT Not Given TIDWM [facility] Protocol Levothyroxine Sodi um 125 mcg 05/21/20 14:00 05/28/20 07:52 Synthroid PO Not Given DAILY [facility] Lorazepam 2 mg 05/27/20 08:06 Ativan IVP Q4H PRN ANXIETY Magnesium Hydroxid e 30 ml 05/21/20 12:11 Milk Of Magnesia PO DAILY PRN Constipation Metoprolol Tartrat e 50 mg 05/21/20 18:00 05/28/20 07:54 Lopressor PO Not Given BID [facility] Metoprolol Tartrat e 5 mg 05/26/20 15:47 05/26/20 19:59 Metoprolol Tartr ate IV 5 mg Q4H PRN Administration tachycardia Midazolam HCl 1 mg 05/26/20 08:32 05/28/20 07:32 Versed IVP 1 mg Q2H PRN Administration AGITATION Morphine Sulfate 1 mg 05/25/20 23:43 05/26/20 02:28 Morphine IVP 1 mg Q2H PRN Administration SEVERE PAIN Multivitamins Ther apeutic 1 tab 05/22/20 09:00 05/28/20 07:54 Multivitamin Tab PO Not Given DAILY [facility] Neomycin/Polymyxin /Bacitracin 1 applic 05/21/20 14:33 05/21/20 15:58 Neosporin Oint T ube TOPICAL 1 applic BID PRN Administration with dressing walter nges Ondansetron HCl 4 mg 05/21/20 12:11 05/21/20 16:34 Zofran PO 4 mg TID PRN Administration Nausea Senna/Docusate Sod ium 1 tab 05/22/20 09:00 05/28/20 07:58 Senna-S PO Not Given DAILY [facility] Venlafaxine HCl 150 mg 05/23/20 09:00 05/28/20 07:59 Effexor Xr PO Not Given DAILY [facility] clarithromycin Allergy (Unknown, Verified 04/16/20 14:33) Unknown hydrocodone Allergy (Unknown, Verified 04/16/20 14:33) Unknown metformin Allergy (Unknown, Verified 04/16/20 14:33) Unknown sitagliptin [From Januvia] Allergy (Unknown, Verified 04/16/20 14:33) Unknown tetanus and diphtheria toxoids Allergy (Unknown, Verified 04/16/20 14:33) Unknown triamcinolone Allergy (Unknown, Verified 04/16/20 14:33) Unknown Vitals/I&O/Wt Last Vital Signs Temp 98.2 F 05/28/20 07:06 Pulse 108 H 05/28/20 07:06 Resp 12 05/28/20 08:01 BP 120/79 05/28/20 07:06 Pulse Ox 97 05/28/20 07:06 05/27/20 05/28/20 05/28/20 22:59 06:59 14:59 Intake Total 544.188 / 781.420 450 / 1231.420 Output Total 120 / 230 150 / 380 Balance 424.188 / 551.420 300 / 851.420 Weight last 48 hrs Weight 127.459 kg Weight 127.006 kg Physical Exam Const: COMMON NORMALS: no acute distress and alert GENERAL APPEARANCE: ill appearing, Edematous and patient mechanically ventilated NUTRITIONAL APPEARANCE: obese morbidly obese ORIENTATION/CONSCIOUSNESS: Yes confused OTHER: -Very restless HENMT: COMMON NORMALS: normocephalic and atraumatic HEAD & SCALP: normocephalic and atraumatic MOUTH: moist mucous membranes abnormal Details: parched Eye: COMMON NORMALS: Equal, round and reactive pupils present, EOMs intact bilaterally and conjunctivae normal CONJUNCTIVA: Yes conjunctivae normal PUPIL: Yes Equal, round and reactive pupils present Neck/C-Spine: COMMON NORMALS: full ROM GENERAL: Yes normal visual inspection and Yes trachea midline OTHER: -contracted, leans to the L chronically Resp: COMMON NORMALS: normal respiratory effort, No retractions and No use of accessory muscles EFFORT & INSPECTION: Yes tachypneic AUSCULTATION: rales and diminished lung sounds OTHER: -on vent support (400/28%/8); ETT-23 cm @ lip. Breathing over vent consistently Cardio: COMMON NORMALS: S1 normal heart sound present, S2 normal heart sound present and No murmurs present (Cardio) RATE: tachycardic RHYTHM: abnormal rhythm irregularly irregular HEART SOUNDS: S1 normal heart sound present and S2 normal heart sound present GI: COMMON NORMALS: Normal to inspection, nondistended, normoactive bowel sounds present and Soft to palpation INSPECTION: Yes central obesity PALPATION: Yes Soft to palpation and Yes Hernia present ventral OTHER: - Unable to gauge tenderness but does not overtly grimace or wince during palpation : BLADDER/KIDNEY EXAM: Yes catheter in place Catheter type (Female): urethral EXTERNAL FEMALE EXAM: Yes Hernia present OTHER: -Right femoral central line Extremity: COMMON NORMALS: normal to inspection, full ROM and no clubbing, cyanosis or edema NARRATIVE EXTREMITY EXAM: -Bed-bound at baseline -Chronic bilateral lower extremity lymphedema GENERAL: Yes edema (1-2+ pitting edema of bilateral LEs; pitting edema of bilateral UEs) Neuro: COMMON NORMALS: moves all extremities, no focal motor deficits, no sensory deficits noted and gait normal SENSORIUM/ORIENTATION: Yes alert OTHER: -baseline tremor of RUE Psych: COMMON NORMALS: mental status grossly normal, Normal thought process present, cooperative, normal affect and speech normal ACTIVITY/MOTOR BEHAVIOR: Yes restless (intermittently) SPEECH: Yes normal speech THOUGHT PROCESS: Normal thought process present OTHER: -low threshold for anxiety Skin: COMMON NORMALS: no jaundice, no petechiae and no mottling NARRATIVE SKIN EXAM: -Scattered bruising -chronic wounds involving L calf, anterior leg, dorsum of foot with some areas of superficial slough but primarily good granulation tissue. -L heel ulcer; bone exposed, slough -weeping edema -chronic stasis dermatitis -excoriation and superficial abrasions in skin folds including inguinal Data : 05/28/20 03:42 05/28/20 03:42 Micro: Microbiology 05/25/20 16:33 Urine Culture - Preliminary Urine,Clean Catch Escherichia coli esbl Pseudomonas aeruginosa 05/26/20 04:26 Gram Stain - Final Sputum - Endotracheal Tube Aspirate Sputum Culture - Preliminary 05/24/20 13:20 Urine Culture - Preliminary Urine,Clean Catch Gram Negative Rods Gram Negative Rods#2 A&P Assessment and plan (1) Septic shock: -Noted significant leukocytosis, lactic acidosis, with associated acute respiratory failure, acute metabolic encephalopathy, hypotension, acute renal impairment, anuria, fever -Noted to have decreased ejection fraction of 30-35% on limited echo which is likely contributing to overall clinical decompensation -weaned off pressor support -Close monitoring of vital signs -intubated due to continued decompensation and fluid overload (05/25); remains on vent support; weaning trial today -has noted UTI and LLE cellulitis with infected ulcers. Based on cultures will switch to Primaxin and Levaquin (renally dosed); d/c Flagyl, Zosyn, and hold Linezolid -repeat blood cx prelim negative; previous cultures grew VRE Enterococcus faecium -had PICC line in place before, now removed; culture of tip negative -repeat UA shows continued evidence of infection; urine cx-ESBL E. coli, pseudomonas aeruginosa, sensitivity noted; previous cultures grew Joslyn albicans. Has had ESBL before. Isolation precautions -Received 4 doses of albumin; give additional doses as needed -sputum cx-prelim negative; gram stain negative -COVID-19 test negative (05/14) -afebrile overnight, continue to monitor -will need additional debridement of LLE wounds once more stable per surgery Status: Acute (2) Acute respiratory failure: -intubated due to continued decompensation and fluid overload (05/25); remains on vent support -weaning trial today -daily CXR, ABG while on vent support -noted evidence of fluid overload on imaging; anuric, requiring dialysis -continued close monitoring of respiratory status -sputum cx-prelim negative; gram stain negative -COVID-19 test negative (05/14) Status: Acute Qualifiers: Respiratory failure complication: unspecified whether with hypoxia or hypercapnia Qualified Code(s): J96.00 - Acute respiratory failure, unspecified whether with hypoxia or hypercapnia (3) Acute kidney injury superimposed on CKD: -Noted to be anuric with worsening renal function -failed trial of IVF and developed fluid overload; repeat fluid challenge yesterday showed she is not fluid responsive -has temporary dialysis catheter (R IJ); one session so far -Has had issues in the past with acute renal impairment including during last admission -Continue to monitor urine output; remains marginal; has Patino catheter -Avoid nephrotoxins, renally dose meds -Nephrology evaluation appreciated -Baseline creatinine appears to be around 1-1.4 though has been as high as 5.7 in the past -in light of decreased EF, could be related to low output -renal US: limited -PERRY on CKD stage 3 -UPEP, SPEP pending; serum immunofixation shows no monoclonal proteins Status: Acute (4) Anasarca: -anasarca with total positive fluid balance of 11 L -anuric Status: Acute (5) Acute on chronic anemia: -baseline Hg appears to be 10-11 -required transfusion of 2 units PRBCs during last admission -Hg gradually dropping, so far transfused 2 units of PRBCs; anticipate need for transfusion of blood products; continue to monitor closely -continue to monitor for bleeding -off AC and antiplatelets Status: Acute (6) Stress-induced cardiomyopathy: -limited Echo: EF=30-35% Status: Acute (7) CVA (cerebral vascular accident): -CT head: chronic changes -carotid US: <50% bilateral ICA stenosis -off ASA due to GI bleed hx; on statin -initially thought to be appropriate for tPA then not given as patient improved; she was evaluated by Dr. Owusu on admission Status: Acute Qualifiers: CVA mechanism: unspecified Qualified Code(s): I63.9 - Cerebral infarcti on, unspecified (8) Elevated troponin level: -noted elevated troponins; likely type II due to demand ischemia -Cardiology evaluation appreciated -limited echo as noted above; had echo with contrast as well -previously on AC with Eliquis -will likely need outpatient stress testing Status: Acute (9) Intermittent atrial fibrillation: -tachycardic -telemetry monitoring -continue to monitor vital signs -on AC with Eliquis -Echo: EF=30-35% -off ASA due to GI bleed hx Status: Acute (10) Acute metabolic encephalopathy: -In light of continued clinical decompensation including development of septic shock Status: Acute (11) Hypotension: -As noted above Status: Acute Qualifiers: Hypotension type: unspecified hypotension type Qualified Code(s): I95.9 - Hypotension, unspecified (12) UTI (urinary tract infection): -repeat UA shows continued evidence of infection; urine cx-ESBL E. coli, pseudomonas aeruginosa, sensitivity noted; previous cultures grew Joslyn albicans Status: Acute Qualifiers: Urinary tract infection type: acute cystitis Hematuria presence: without hematuria Qualified Code(s): N30.00 - Acute cystitis without hematuria (13) High anion gap metabolic acidosis: -AG closed -continue to monitor Status: Resolved Additional A&P Information -GERD; add PPI due to anemia -Morbid obesity: BMI-48 kg/m2 though overall has quite poor nutrition status as reflected by hypoalbuminemia which is contributing to lymphedema. -large hiatal hernia -Dyslipidemia; on statin -Chronic pain; on narcotics -Gram positive bacteremia secondary to LE cellulitis and acutely infected LLE wounds which were surgically debrided during last admission and additional bedside debridement on 05/21; blood cx grew VRE Enterococcus faecium. On Zyvox. Blood cx (05/21, 05/25): negative. Wound care with Santyl, hydrofera blue; continue to f/u at [facility] on d/c -Peripheral vascular disease; seen by Dr. Alejandre during previous admission, s/p peripheral angiogram with no noted significant vascular compromise noted. -COPD, not oxygen dependent at baseline -Vascular dementia -NIDDM type II; A1c-5.3; Accuchecks, ISS, hypoglycemia precautions. DM complicated by nephropathy, PVD, neuropathy -Hypothyroidism; on levothyroxine, TSH wnl -Fecal retention; enemas PRN -NPO; unable to place OGT due to hernia -DVT ppx not done as due to bleeding risk is off AC and cannot have SCDs due to LE wounds -Dispo: Martri Stark -Code status: FULL code -continue ICU care due to critical illness -Very guarded prognosis Attestations Medical Necessity Statement*: Patient requires hospitalization for continued management of critical illness, remains on ventilator support, has acutely worsening anemia requiring transfusion of blood products, continued renal impairment and anuria requiring continued close follow-up, treatment of UTI and lower extremity ulcers with IV antibiotics. Time Spent in Patient Care: Greater than 35 minutes (>than 50% of time spent in counselling and/or direct pt care on unit) . Critical Care Time: The high probability of a clinically significant, sudden or life threatening deterioration of the patient's [cardiovascular, respiratory, renal] system(s) required my full and direct attention, intervention and personal management. The critical care time is as shown. This time is in addition to time spent performing any reported procedures but includes the following: [x] Data and vital sign review and interpretation [x] Patient assessment, examination and intervention [x] Documentation [x] Medication orders and management Critical Care Time (min): 30 Coding Level of Care Code Acute Traffic [employer] Magistrate for Chg Fwd Diagnoses Septic shock A41.9; R65.21 Acute respiratory failure J96.00 Respiratory failure complication: unspecified whether with hypoxia or hypercapnia Acute kidney injury superimposed on CKD N17.9; N18.9 Anasarca R60.1 Acute on chronic anemia D64.9 Stress-induced cardiomyopathy I51.81 CVA (cerebral vascular accident) I63.9 CVA mechanism: unspecified Elevated troponin level R79.89 Intermittent atrial fibrillation I48.0 Acute metabolic encephalopathy G93.41 Hypotension I95.9 Hypotension type: unspecified hypotension type UTI (urinary tract infection) N30.00 Urinary tract infection type: acute cystitis Hematuria presence: without hematuria High anion gap metabolic acidosis E87.2
[2020-05-28] MEDS: collagenase oint 30 gm 1 APPLIC TOPICAL (08:31)
[2020-05-28] MEDS: pantoprazole 40 mg SDV IVP ×2 (09:30→20:09)
[2020-05-28] MEDS: levofloxacin-dextrose 5 % 750 MG/150 ML PREMIX 100 MG IV (09:30)
[2020-05-28 09:51] LABS: ALPHA 1 GLOBULIN 0.5 g/dL (0.2-0.3); ALPHA 2 GLOBULIN 0.7 g/dL (0.5-0.9); BETA 1 GLOBULIN 0.2 g/dL (0.4-0.6); BETA 2 GLOBULIN 0.3 g/dL (0.2-0.5); GAMMA GLOBULIN 0.9 g/dL (0.8-1.7)
[2020-05-28 11:38] LABS: Glucose Point of Care 71 mg/dL (70-110)
[2020-05-28 11:38] LABS: Glucose Point of Care 68 mg/dL (70-110)
[2020-05-28] MEDS: dextrose 50% syringe 50 mL 25 ML IVP ×2 (11:51→20:09)
--- NOTE | 2020-05-28 12:18 | PM.PN ---
Subjective Subjective: Interval history: She received lasix 80 mg IV x1, 1 unit pRBC and UO is ~300 ml. Her Hb this morning has dropped to 6.5. Her antibiotics were changed to primaxin and levaquin from zosyn. Urine CX growing ESBL E. coli and Psudomonas. Plan to start her on lasix gtt this morning and continue with another pRBC. She has been off pressors. Medications: Reviewed: Yes Medication Review Details: Current Medications Acetaminophen (Tylenol) 650 mg [place] Q6H PRN PRN Reason: FEVER Last Admin: 05/26/20 22:15 Dose: 650 mg Documented by: Apixaban (Eliquis) 2.5 mg PO BID [facility] Last Admin: 05/28/20 07:51 Dose: Not Given Documented by: Aripiprazole (Abilify) 5 mg PO BID [facility] Last Admin: 05/28/20 07:52 Dose: Not Given Documented by: Atorvastatin Calcium (Lipitor) 40 mg PO DAILY [facility] Last Admin: 05/28/20 07:52 Dose: Not Given Documented by: Collagenase (Santyl) 1 applic TOPICAL DAILY [facility] Last Admin: 05/28/20 08:31 Dose: 1 applic Documented by: Dextrose (D50w) 25 ml IVP ONCE PRN; Protocol PRN Reason: hypoglycemia protocol Last Admin: 05/28/20 11:51 Dose: 25 ml Documented by: Dextrose (D50w) 50 ml IVP PRN PRN; Protocol PRN Reason: hypoglycemia protocol Fentanyl (Sublimaze) 25 mcg IVP Q2H PRN PRN Reason: Severe Pain or agitation Last Admin: 05/26/20 18:02 Dose: 25 mcg Documented by: Glucagon (Glucagen) 1 mg IM ONCE PRN; Protocol PRN Reason: Adult Acute Hypoglycemia Prot. Dextrose (D5w) 500 mls @ 100 mls/hr IV ONCE PRN; Protocol PRN Reason: Adult Acute Hypoglycemia Prot Last Infusion: 05/25/20 19:46 Dose: Infused Documented by: Linezolid (Zyvox Premix) 600 mg in 300 mls @ 300 mls/hr IV Q12H [facility]; Protocol Last Admin: 05/28/20 02:07 Dose: 300 mls/hr Documented by: Albumin Human (Albumin) 12.5 gm in 50 mls @ 60 mls/hr IV PRN PRN PRN Reason: Hypotension and/or symptomatic Albumin Human (Albumin) 12.5 gm in 50 mls @ 60 mls/hr IV PRN PRN PRN Reason: Hypotension and/or symptomatic Norepinephrine Bitartrate 4 mg (/ Dextrose) 254 mls @ 0 mls/hr IV .Q0M [facility]; Protocol Last Titration: 05/27/20 16:00 Dose: 0 mcg/min, 0 mls/hr Documented by: Norepinephrine Bitartrate 8 mg (/ Dextrose) 508 mls @ 0 mls/hr IV .Q0M [facility]; Protocol Last Admin: 05/27/20 03:02 Dose: 6 mcg/min, 22.9 mls/hr Documented by: Fentanyl 1,000 mcg/ Sodium (Chloride) 100 mls @ 0 mls/hr IV .Q0M [facility]; Protocol Last Admin: 05/28/20 09:55 Dose: 50 mcg/hr, 5 mls/hr Documented by: Furosemide 100 mg/ Sodium (Chloride) 50 mls @ 3 mls/hr IV .[id number] [facility]; Protocol Last Admin: 05/28/20 08:16 Dose: 6 mg/hr, 3 mls/hr Documented by: Imipenem/Cilastatin Sodium 250 (mg/ Sodium Chloride) 100 mls @ 200 mls/hr IV Q6H [facility]; Protocol Last Admin: 05/28/20 09:30 Dose: 200 mls/hr Documented by: Levofloxacin/Dextrose (Levaquin-D5w) 750 mg in 150 mls @ 100 mls/hr IV Q48H [facility]; Protocol Last Admin: 05/28/20 09:30 Dose: 100 mls/hr Documented by: Insulin Aspart (Novolog) 0 unit SUBCUT TIDWM [facility]; Protocol Last Admin: 05/28/20 07:51 Dose: Not Given Documented by: Levothyroxine Sodium (Synthroid) 125 mcg PO DAILY [facility] Last Admin: 05/28/20 07:52 Dose: Not Given Documented by: Lorazepam (Ativan) 2 mg IVP Q4H PRN PRN Reason: ANXIETY Magnesium Hydroxide (Milk Of Magnesia) 30 ml PO DAILY PRN PRN Reason: Constipation Metoprolol Tartrate (Lopressor) 50 mg PO BID [facility] Last Admin: 05/28/20 07:54 Dose: Not Given Documented by: Metoprolol Tartrate (Metoprolol Tartrate) 5 mg IV Q4H PRN PRN Reason: tachycardia Last Admin: 05/26/20 19:59 Dose: 5 mg Documented by: Midazolam HCl (Versed) 1 mg IVP Q2H PRN PRN Reason: AGITATION Last Admin: 05/28/20 07:32 Dose: 1 mg Documented by: Morphine Sulfate (Morphine) 1 mg IVP Q2H PRN PRN Reason: SEVERE PAIN Last Admin: 05/26/20 02:28 Dose: 1 mg Documented by: Multivitamins Therapeutic (Multivitamin Tab) 1 tab PO DAILY [facility] Last Admin: 05/28/20 07:54 Dose: Not Given Documented by: Neomycin/Polymyxin/Bacitracin (Neosporin Oint Tube) 1 applic TOPICAL BID PRN PRN Reason: with dressing changes Last Admin: 05/21/20 15:58 Dose: 1 applic Documented by: Ondansetron HCl (Zofran) 4 mg PO TID PRN PRN Reason: Nausea Last Admin: 05/21/20 16:34 Dose: 4 mg Documented by: Pantoprazole Sodium (Protonix) 40 mg IVP Q12H [facility] Last Admin: 05/28/20 09:30 Dose: 40 mg Documented by: Senna/Docusate Sodium (Senna-S) 1 tab PO DAILY [facility] Last Admin: 05/28/20 07:58 Dose: Not Given Documented by: Venlafaxine HCl (Effexor Xr) 150 mg PO DAILY [facility] Last Admin: 05/28/20 07:59 Dose: Not Given Documented by: Vitals/I&O/Wt Last Vital Signs Temp 97.9 F 05/28/20 10:00 Pulse 109 H 05/28/20 10:15 Resp 12 05/28/20 11:41 BP 139/93 05/28/20 10:15 Pulse Ox 98 05/28/20 10:15 05/27/20 05/28/20 05/28/20 22:59 06:59 14:59 Intake Total 544.188 / 781.420 550 / 1331.420 352.375 / 352.375 Output Total 120 / 230 150 / 380 35 / 35 Balance 424.188 / 551.420 400 / 951.420 317.375 / 317.375 Cumulative I&O 05/21/20 05:41 thru 05/28/20 09:58 Intake Total 34114.226 Output Total 1513 Balance 57989.226 Weight last 48 hrs Weight 281 lb Weight 280 lb Physical Exam Const: GENERAL APPEARANCE: patient mechanically ventilated NUTRITIONAL APPEARANCE: obese Resp: COMMON NORMALS: clear to auscultation bilaterally (anteriorly) AUSCULTATION: clear to auscultation bilaterally (anteriorly), crackles, no rales and no rhonchi Cardio: PALPATION: abnormal PMI RATE: tachycardic RHYTHM: abnormal rhythm irregularly irregular HEART SOUNDS: no gallops and no murmurs PERIPHERAL PULSES: radial pulses present, posterior tibial pulses present and dorsalis pedis present GI: COMMON NORMALS: Soft to palpation PALPATION: Yes Soft to palpation Extremity: GENERAL: Yes edema (2+ bilateral leg edema), No pallor and Yes other findings (leg ulcers (left foot wound dressed), erythema present bilaterally) Neuro: WAI COMA SCALE: GCS not evaluated (patient currently sedated; spontaneous eye opening and extremity movement present) Data : 05/28/20 03:42 05/28/20 03:42 Micro: Microbiology 05/24/20 13:20 Urine Culture - Preliminary Urine,Clean Catch Pseudomonas aeruginosa Gram Negative Rods#2 05/25/20 16:33 Urine Culture - Preliminary Urine,Clean Catch Escherichia coli esbl Pseudomonas aeruginosa 05/26/20 04:26 Gram Stain - Final Sputum - Endotracheal Tube Aspirate Sputum Culture - Preliminary A&P Assessment and plan (1) Septic shock: -recent blood cx negative so far, Urine cx with ESBL E. coli and Pseudomonas. -currently off levophed and Dobutamine. -On broad spectrum antibiotics. Status: Acute (2) Atrial fibrillation: Atrial fib with RVR; unable to get PO metoprolol. start on low dose metoprolol 2.5 -5 mg IV Q 4 Hr PRN. -Eliquis held given h/o transfusion dependent anemia and drop in H&H. No obvious GI bleed per history. -recommend starting on heparin gtt once feasible given high [id number] score. Status: Acute Qualifiers: Atrial fibrillation type: longstanding persistent Qualified Code(s): I48.11 - Longstanding persistent atrial fibrillation (3) Cardiomyopathy: Stress induced cardiomyopathy. -However, underlying CAD is a possibility. She has h/o CVA and PAD. -Not a good candidate now for any further work up with worsening renal function. -She has some volume overload in setting of ARF, however I do not think this is decompensated CHF that we are dealing with right now. -Her FiO2 requirement is at 0.28. -Repeat limited TTE with contrast showing improved LV function to 60% (off pressors). No RWMA. NO LV thrombus. Status: Acute Qualifiers: Cardiomyopathy type: unspecified Qualified Code(s): I42.9 - Cardiomyopathy, unspecified (4) Acute renal failure: -Required emergent dialysis on 05/25. -responded to lasix yesterday. will start on lasix gtt today. -f/u BMP and I/O's closely. Status: Acute Qualifiers: Acute renal failure type: with acute tubular necrosis Qualified Code(s): N17.0 - Acute kidney failure with tubular necrosis (5) NSTEMI (non-ST elevated myocardial infarction): Likely type 2 in etiology due to underlying sepsis. Status: Acute (6) Type 2 diabetes mellitus: Status: Chronic Qualifiers: Diabetes mellitus complication status: with other specified complication Diabetes mellitus fdc insulin use: without fdc use Qualified Code(s): E11.69 - Type 2 diabetes mellitus with other specified complication (7) Acute metabolic encephalopathy: Status: Acute Additional A&P Information Anion gap Metabolic acidosis Lactic acidosis: Patient was on and later discharged on Zyvox on 05/15/20; it can potentially cause lactic acidosis. Acute respiratory failure: intubated given altered mental status; On FiO2 0.28 H/O VRE becteremia in 04/2020 h/o ESBL UTI Underlying PNA ? Infected left foot ulcer : ?osteomyelitis Anemia: currently being transfused. Attestations Medical Necessity Statement*: Remains critically ill. 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
[2020-05-28 12:29] LABS: Hemoglobin 9.1 g/dL (11.5-15.3)
[2020-05-28 12:39] LABS: Glucose Point of Care 94 mg/dL (70-110)
[2020-05-28 12:42] LABS: Anti-Nuclear Antibody Pattern Nuclear, Speckled; Anti-Nuclear Antibody Screen POSITIVE (NEGATIVE); Anti-Nuclear Antibody Titer > OR = 1:1280 titer
--- NOTE | 2020-05-28 14:26 | SUR.OPER ---
OT note: This morning's hgb was 6.5, also pt intubated. Will hold OT this date.
--- NOTE | 2020-05-28 14:31 | PC.SOCIAL ---
IMM Updated Spoke with patient's son, Hugo, by phone and updated IMM. He verbalizes understanding and appreciates the phone call. Initialed, dated, and timed and placed back in chart. Copy provided to patient's bedside.
--- NOTE | 2020-05-28 18:45 | PC.NURSE ---
Levophed shown to be infusing still on MAR, medication not infusing upon taking over patient during shift change.
[2020-05-28 20:05] LABS: Glucose Point of Care 72 mg/dL (70-110)
[2020-05-28 20:05] LABS: Glucose Point of Care 66 mg/dL (70-110)
--- NOTE | 2020-05-28 23:53 | PC.NURSE ---
Patient moved to [facility] bed/support mattress with help of other RN's, tolerated well.
[2020-05-29] VITALS (85 sets, daily range): BP systolic 110–163; BP diastolic 66–116; PULSE 98–127; RESP 8–36; TEMP 36.3–37.6; O2SAT 82–100
[2020-05-29 00:43] LABS: Glucose Point of Care 70 mg/dL (70-110)
[2020-05-29 00:43] LABS: Glucose Point of Care 90 mg/dL (70-110)
[2020-05-29 04:37] LABS: Basophils % 0.3 %; Eosinophils # 0.5 10^3/uL (0.0-0.8); Eosinophils % 5.5 %; Hematocrit 29.6 % (37.0-47.0); Hemoglobin 9.5 g/dL (11.5-15.3); Lymphocytes # 1.5 10^3/uL (0.8-4.8); Lymphocytes % 16.7 %; Mean Corpuscular HGB Conc 32.1 g/dL (30.0-36.0); Mean Corpuscular Hemoglobin 29.3 pg (28.0-34.0); Mean Corpuscular Volume 91.4 fL (81-99); Mean Platelet Volume 9.8 fL (7.4-10.4); Monocytes # 0.3 10^3/uL (0.2-0.9); Monocytes % 3.7 %; Neutrophils # 6.66 10^3/uL (1.8-7.7); Neutrophils % 73.4 %; Nucleated Red Blood Cells % 0 %; Platelet Count 92 10^3/cmm (130-400); Red Blood Count 3.24 10^6/uL (4.1-5.3); Red Cell Distribution Width 17.8 % (12.1-15.1); White Blood Count 9.1 10^3/uL (4.0-10.0)
[2020-05-29 05:14] LABS: Lactate (Lactic Acid level) 2.6 mmol/L (0.5-2.2)
[2020-05-29 05:15] LABS: Alanine Aminotransferase 14 U/L (0-33); Albumin Level 2.2 g/dL (3.5-5.2); Alkaline Phosphatase 120 IU/L (35-105); Anion Gap 13.5 (5-19); Aspartate Amino Transferase 16 U/L (0-32); Blood Urea Nitrogen 24 mg/dL (8-23); Calcium 7.4 mg/dL (8.5-10.5); Carbon Dioxide 23 mmol/L (22-29); Chloride 100 mmol/L (98-107); Globulin 2.7 g/dL (1.3-4.6); Glucose 76 mg/dL (65-115); Magnesium 1.7 mg/dL (1.7-2.3); Osmolality Calculated 272 mOsm/kg (285-295); Phosphorus 4.1 mg/dL (2.5-4.5); Potassium 3.5 mmol/L (3.5-5.1); Sodium 133 mmol/L (136-145); Total Bilirubin 0.8 mg/dL (0.15-1.2); Total Protein 4.9 g/dL (6.6-8.7)
--- NOTE | 2020-05-29 06:00 | XR_ITS ---
WS: [id number] Portable AP supine chest, 05/29/2020 Clinical Data: on vent support Comparison: Portable chest, 05/28/2020 Findings: The endotracheal tube and dialysis catheter remain in same position. The heart remains enla rged. There is patchy opacity in the left lower lobe. Monitor leads are on the chest wall. The right lung remains clear. The pulmonary vascularity is not increased. No pneumothorax is seen. XR/XR chest 1V portable [id number] Impression: 1. No change in right dialysis catheter and endotracheal tube. 2. No change in cardiomegaly and patchy opacity cardiac region.
--- NOTE | 2020-05-29 07:40 | PM.PN ---
Subjective Subjective: Interval history: remains intubates off pressors. unable to obtain ROS Medications: Reviewed: Yes Medication Review Details: Current Medications Acetaminophen (Tylenol) 650 mg [place] Q6H PRN PRN Reason: FEVER Last Admin: 05/26/20 22:15 Dose: 650 mg Documented by: Apixaban (Eliquis) 2.5 mg PO BID [facility] Last Admin: 05/28/20 07:51 Dose: Not Given Documented by: Aripiprazole (Abilify) 5 mg PO BID [facility] Last Admin: 05/28/20 07:52 Dose: Not Given Documented by: Atorvastatin Calcium (Lipitor) 40 mg PO DAILY [facility] Last Admin: 05/28/20 07:52 Dose: Not Given Documented by: Collagenase (Santyl) 1 applic TOPICAL DAILY [facility] Last Admin: 05/28/20 08:31 Dose: 1 applic Documented by: Dextrose (D50w) 25 ml IVP ONCE PRN; Protocol PRN Reason: hypoglycemia protocol Last Admin: 05/28/20 11:51 Dose: 25 ml Documented by: Dextrose (D50w) 50 ml IVP PRN PRN; Protocol PRN Reason: hypoglycemia protocol Fentanyl (Sublimaze) 25 mcg IVP Q2H PRN PRN Reason: Severe Pain or agitation Last Admin: 05/26/20 18:02 Dose: 25 mcg Documented by: Glucagon (Glucagen) 1 mg IM ONCE PRN; Protocol PRN Reason: Adult Acute Hypoglycemia Prot. Dextrose (D5w) 500 mls @ 100 mls/hr IV ONCE PRN; Protocol PRN Reason: Adult Acute Hypoglycemia Prot Last Infusion: 05/25/20 19:46 Dose: Infused Documented by: Linezolid (Zyvox Premix) 600 mg in 300 mls @ 300 mls/hr IV Q12H [facility]; Protocol Last Admin: 05/28/20 02:07 Dose: 300 mls/hr Documented by: Albumin Human (Albumin) 12.5 gm in 50 mls @ 60 mls/hr IV PRN PRN PRN Reason: Hypotension and/or symptomatic Albumin Human (Albumin) 12.5 gm in 50 mls @ 60 mls/hr IV PRN PRN PRN Reason: Hypotension and/or symptomatic Norepinephrine Bitartrate 4 mg (/ Dextrose) 254 mls @ 0 mls/hr IV .Q0M [facility]; Protocol Last Titration: 05/27/20 16:00 Dose: 0 mcg/min, 0 mls/hr Documented by: Norepinephrine Bitartrate 8 mg (/ Dextrose) 508 mls @ 0 mls/hr IV .Q0M [facility]; Protocol Last Admin: 05/27/20 03:02 Dose: 6 mcg/min, 22.9 mls/hr Documented by: Fentanyl 1,000 mcg/ Sodium (Chloride) 100 mls @ 0 mls/hr IV .Q0M [facility]; Protocol Last Admin: 05/28/20 09:55 Dose: 50 mcg/hr, 5 mls/hr Documented by: Furosemide 100 mg/ Sodium (Chloride) 50 mls @ 3 mls/hr IV .[id number] [facility]; Protocol Last Admin: 05/28/20 08:16 Dose: 6 mg/hr, 3 mls/hr Documented by: Imipenem/Cilastatin Sodium 250 (mg/ Sodium Chloride) 100 mls @ 200 mls/hr IV Q6H [facility]; Protocol Last Admin: 05/28/20 09:30 Dose: 200 mls/hr Documented by: Levofloxacin/Dextrose (Levaquin-D5w) 750 mg in 150 mls @ 100 mls/hr IV Q48H [facility]; Protocol Last Admin: 05/28/20 09:30 Dose: 100 mls/hr Documented by: Insulin Aspart (Novolog) 0 unit SUBCUT TIDWM [facility]; Protocol Last Admin: 05/28/20 07:51 Dose: Not Given Documented by: Levothyroxine Sodium (Synthroid) 125 mcg PO DAILY [facility] Last Admin: 05/28/20 07:52 Dose: Not Given Documented by: Lorazepam (Ativan) 2 mg IVP Q4H PRN PRN Reason: ANXIETY Magnesium Hydroxide (Milk Of Magnesia) 30 ml PO DAILY PRN PRN Reason: Constipation Metoprolol Tartrate (Lopressor) 50 mg PO BID [facility] Last Admin: 05/28/20 07:54 Dose: Not Given Documented by: Metoprolol Tartrate (Metoprolol Tartrate) 5 mg IV Q4H PRN PRN Reason: tachycardia Last Admin: 05/26/20 19:59 Dose: 5 mg Documented by: Midazolam HCl (Versed) 1 mg IVP Q2H PRN PRN Reason: AGITATION Last Admin: 05/28/20 07:32 Dose: 1 mg Documented by: Morphine Sulfate (Morphine) 1 mg IVP Q2H PRN PRN Reason: SEVERE PAIN Last Admin: 05/26/20 02:28 Dose: 1 mg Documented by: Multivitamins Therapeutic (Multivitamin Tab) 1 tab PO DAILY [facility] Last Admin: 05/28/20 07:54 Dose: Not Given Documented by: Neomycin/Polymyxin/Bacitracin (Neosporin Oint Tube) 1 applic TOPICAL BID PRN PRN Reason: with dressing changes Last Admin: 05/21/20 15:58 Dose: 1 applic Documented by: Ondansetron HCl (Zofran) 4 mg PO TID PRN PRN Reason: Nausea Last Admin: 05/21/20 16:34 Dose: 4 mg Documented by: Pantoprazole Sodium (Protonix) 40 mg IVP Q12H [facility] Last Admin: 05/28/20 09:30 Dose: 40 mg Documented by: Senna/Docusate Sodium (Senna-S) 1 tab PO DAILY [facility] Last Admin: 05/28/20 07:58 Dose: Not Given Documented by: Venlafaxine HCl (Effexor Xr) 150 mg PO DAILY [facility] Last Admin: 05/28/20 07:59 Dose: Not Given Documented by: Vitals/I&O/Wt Last Vital Signs Temp 97.7 F 05/29/20 04:00 Pulse 99 05/29/20 06:00 Resp 13 05/29/20 04:38 BP 123/77 05/29/20 06:00 Pulse Ox 96 05/29/20 06:00 05/28/20 05/29/20 05/29/20 22:59 06:59 14:59 Intake Total 279.933 / 732.308 49.25 / 781.558 Output Total 185 / 480 250 / 730 Balance 94.933 / 252.308 -200.75 / 51.558 Weight last 48 hrs Weight 127.006 kg Weight 127.459 kg Physical Exam Narrative: EXAM NARRATIVE: exam performed by RN as telemedicine visit -intubated, sedtaed, off of pressors, responds to pain vent AC/tv 300/ fio2=28%, PEEP 8. rr 12 remains in afib w/HR 100 heent- nc/at, eomi, anicteric lungs wheezes b/l heart irreg irreg, +YANDY abd soft, + bs, nt ext legs swollen w/ lesions on left leg- q ulcer neuro- sedated, moving more swollen Data : 05/29/20 04:00 05/29/20 04:00 Micro: Microbiology 05/26/20 04:26 Gram Stain - Final Sputum - Endotracheal Tube Aspirate Sputum Culture - Final 05/24/20 13:20 Urine Culture - Preliminary Urine,Clean Catch Pseudomonas aeruginosa Gram Negative Rods#2 05/25/20 16:33 Urine Culture - Preliminary Urine,Clean Catch Escherichia coli esbl Pseudomonas aeruginosa A&P Additional A&P Information 69 year old female A fib, cva hx, dm, obesity, recent VRE bacteremia and ESBL UTI, and COPD. pt now w/ severe inc AGMA and PERRY 1. inc AGMA- likely sepsis related had lacatate of 9.2 improved to 4.2 w/ pressors and HD -improved. bicarb 23 2. PERRY- likely atn -u/a hazy, 1 + prot, 3+ blood. 15-25 wbc- Q UTI -no ur eos -low ur na- she did not respond to ivf -concern for embolic disease- would need to be b/l -renal us w/o hydro -cpk 106 -s/p emergent hd on 05/25 POSITIVE BRISSA, Q INFECTION, ATYPICAL FOR LUPUS. TOO UNSTABLE FOR A RENAL BX. CR STABLE, AND LIKELY INFECTION- WILL NOT GIVE STEROIDS FOR NOW. CONSIDER PULM AND / OR RHEUM EVAL -monitor uop and chemistries -inc lasix dose -no emergent need for HD now- 3. cva and a fib per medicine and neuro -per cardiology -stress induced cardiomyopathy 4. presumed LLE cellulitis and uti- agree w/ boad spectrum abx- sepsis eval per medicine -q leg infection 5. tsh 6.68- acceptable for sepsis 6. anemia- getting her 2nd 1U prbc,17, ferritin 619- unlikely hemolysis. and getting iron w/ blood tx check ldh 349, retic, haptoglobin 278, iron sat -can anemia be from SLE -IF NEEDS A CONTRAST CT SCAN, CAN DIALYZE AFTERWARDS 7. VDRF- monitor on lasix drip -stress induce cardiomyopathy- per cardiology. wonder if can be lupus related 8. hypocalcemia corrects given alb of 2 9. hyponatremis- from [place], chf, lasix- monitor 10. 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
--- NOTE | 2020-05-29 08:54 | P.PN_ITS ---
Subjective Subjective: Interval history: Remains intubated with no oxygen requirement long, consistently breathing over the ventilator, had to 50 mL urine output overnight for total of 875 mL over the past 24 hours. Remains on Lasix drip. Anasarcic with a positive fluid balance of 11.3 L. Afebrile, blood pressure remained stable and continues to be off pressor support. Renal function stable, hemoglobin up to 9.5 today. Noted to be BRISSA positive with a titer of 1:1280, speckled pattern. Son Hugo would like the patient transferred to a higher level of care so will work on transfer. Medications: Reviewed: Yes Medication Review Details: Active Medications Generic Name Dose Route Start Last Admin Trade Name Freq PRN Reason Stop Dose Admin Acetaminophen 650 mg 05/26/20 22:03 05/26/20 22:15 Tylenol OR 650 mg Q6H PRN Administration FEVER Apixaban 2.5 mg 05/25/20 18:00 05/29/20 07:22 Eliquis PO Not Given BID SWATI Aripiprazole 5 mg 05/22/20 18:00 05/29/20 07:22 Abilify PO Not Given BID SWATI Atorvastatin Calci um 40 mg 05/21/20 13:00 05/29/20 07:24 Lipitor PO Not Given DAILY SWATI Collagenase 1 applic 05/24/20 17:00 05/28/20 08:31 Santyl TOPICAL 1 applic DAILY SWATI Administration Dextrose 50 ml 05/21/20 13:50 D50w IVP PRN PRN hypoglycemia prot ocol Protocol Fentanyl 25 mcg 05/26/20 08:32 05/26/20 18:02 Sublimaze IVP 25 mcg Q2H PRN Administration Severe Pain or ag itation Glucagon 1 mg 05/21/20 13:50 Glucagen IM ONCE PRN Adult Acute Hypog lycemia Prot. Protocol Dextrose 500 mls @ 100 mls /hr 05/21/20 13:50 05/25/20 19:46 D5w IV Infused ONCE PRN Infusion Adult Acute Hypog lycemia Prot Protocol Linezolid 600 mg in 300 mls @ 300 mls/hr 05/25/20 14:00 05/28/20 02:07 Zyvox Premix IV 300 mls/hr Q12H SWATI Administration Protocol Albumin Human 12.5 gm in 50 mls @ 60 mls/hr 05/25/20 16:33 Albumin IV PRN PRN Hypotension and/o r symptomatic Albumin Human 12.5 gm in 50 mls @ 60 mls/hr 05/25/20 17:21 Albumin IV PRN PRN Hypotension and/o r symptomatic Norepinephrine Bit artrate 4 mg 254 mls @ 0 mls/h r 05/25/20 20:15 05/27/20 16:00 / Dextrose IV 0 mcg/min .Q0M SWATI 0 mls/hr Titration Protocol Per Protocol Norepinephrine Bit artrate 8 mg 508 mls @ 0 mls/h r 05/26/20 17:30 05/27/20 03:02 / Dextrose IV 6 mcg/min .Q0M SWATI 22.9 mls/hr Administration Protocol Per Protocol Fentanyl 1,000 mcg / Sodium 100 mls @ 0 mls/h r 05/26/20 19:30 05/29/20 03:56 Chloride IV 50 mcg/hr .Q0M SWATI 5 mls/hr Administration Protocol Per Protocol Furosemide 100 mg/ Sodium 50 mls @ 5 mls/hr 05/28/20 08:00 05/28/20 21:18 Chloride IV 6 mg/hr .Q10H SWATI 3 mls/hr Administration Protocol 10 MG/HR Imipenem/Cilastati n Sodium 250 100 mls @ 200 mls /hr 05/28/20 09:00 05/29/20 03:56 mg/ Sodium Chlor migdalia IV 200 mls/hr Q6H SWATI Administration Protocol Levofloxacin/Dextr ose 750 mg in 150 mls @ 100 mls/hr 05/28/20 08:45 05/28/20 09:30 Levaquin-D5w IV 100 mls/hr Q48H SWATI Administration Protocol Magnesium Sulfate 1 gm/ Sodium 52 mls @ 104 mls/ hr 05/29/20 08:30 Chloride IV 05/29/20 08:59 ONCE ONE Insulin Aspart 0 unit 05/21/20 18:00 05/29/20 07:20 Novolog SUBCUT Not Given TIDWM SWATI Protocol Levothyroxine Sodi um 125 mcg 05/21/20 14:00 05/28/20 07:52 Synthroid PO Not Given DAILY SWATI Lorazepam 2 mg 05/27/20 08:06 Ativan IVP Q4H PRN ANXIETY Magnesium Hydroxid e 30 ml 05/21/20 12:11 Milk Of Magnesia PO DAILY PRN Constipation Metoprolol Tartrat e 50 mg 05/21/20 18:00 05/28/20 16:14 Lopressor PO Not Given BID SWATI Metoprolol Tartrat e 5 mg 05/26/20 15:47 05/26/20 19:59 Metoprolol Tartr ate IV 5 mg Q4H PRN Administration tachycardia Midazolam HCl 1 mg 05/26/20 08:32 05/28/20 14:51 Versed IVP 1 mg Q2H PRN Administration AGITATION Morphine Sulfate 1 mg 05/25/20 23:43 05/26/20 02:28 Morphine IVP 1 mg Q2H PRN Administration SEVERE PAIN Multivitamins Ther apeutic 1 tab 05/22/20 09:00 05/28/20 07:54 Multivitamin Tab PO Not Given DAILY [facility] Neomycin/Polymyxin /Bacitracin 1 applic 05/21/20 14:33 05/21/20 15:58 Neosporin Oint T ube TOPICAL 1 applic BID PRN Administration with dressing walter nges Ondansetron HCl 4 mg 05/21/20 12:11 05/21/20 16:34 Zofran PO 4 mg TID PRN Administration Nausea Pantoprazole Sodiu m 40 mg 05/28/20 09:00 05/28/20 20:09 Protonix IVP 40 mg Q12H SWATI Administration Senna/Docusate Sod ium 1 tab 05/22/20 09:00 05/28/20 07:58 Senna-S PO Not Given DAILY [facility] Venlafaxine HCl 150 mg 05/23/20 09:00 05/28/20 07:59 Effexor Xr PO Not Given DAILY [facility] clarithromycin Allergy (Unknown, Verified 04/16/20 14:33) Unknown hydrocodone Allergy (Unknown, Verified 04/16/20 14:33) Unknown metformin Allergy (Unknown, Verified 04/16/20 14:33) Unknown sitagliptin [From Januvia] Allergy (Unknown, Verified 04/16/20 14:33) Unknown tetanus and diphtheria toxoids Allergy (Unknown, Verified 04/16/20 14:33) Unknown triamcinolone Allergy (Unknown, Verified 04/16/20 14:33) Unknown Vitals/I&O/Wt Last Vital Signs Temp 97.7 F 05/29/20 04:00 Pulse 99 05/29/20 06:00 Resp 10 L 05/29/20 08:28 BP 123/77 05/29/20 06:00 Pulse Ox 96 05/29/20 06:00 05/28/20 05/29/20 05/29/20 22:59 06:59 14:59 Intake Total 279.933 / 732.308 49.25 / 781.558 Output Total 185 / 480 250 / 730 Balance 94.933 / 252.308 -200.75 / 51.558 Weight last 48 hrs Weight 127.006 kg Weight 127.459 kg Physical Exam Const: COMMON NORMALS: no acute distress and alert GENERAL APPEARANCE: ill appearing, Edematous and patient mechanically ventilated NUTRITIONAL APPEARANCE: obese morbidly obese OTHER: -intermittently restless, minimal sedation with Fentanyl HENMT: COMMON NORMALS: normocephalic and atraumatic HEAD & SCALP: normocephalic and atraumatic Eye: COMMON NORMALS: Equal, round and reactive pupils present, EOMs intact bilaterally and conjunctivae normal CONJUNCTIVA: Yes conjunctivae normal PUPIL: Yes Equal, round and reactive pupils present Neck/C-Spine: COMMON NORMALS: full ROM GENERAL: Yes normal visual inspection and Yes trachea midline OTHER: -contracted, leans to the L chronically -temporary dialysis catheter on R Resp: COMMON NORMALS: normal respiratory effort, No retractions and No use of accessory muscles EFFORT & INSPECTION: Yes tachypneic AUSCULTATION: rales and diminished lung sounds OTHER: -on vent support (400/28%/8); ETT-23 cm @ lip. Breathing over vent consistently Cardio: COMMON NORMALS: S1 normal heart sound present, S2 normal heart sound present and No murmurs present (Cardio) RATE: tachycardic RHYTHM: abnormal rhythm irregularly irregular HEART SOUNDS: S1 normal heart sound present and S2 normal heart sound present GI: COMMON NORMALS: Normal to inspection, nondistended, normoactive bowel sounds present and Soft to palpation INSPECTION: Yes central obesity PALPATION: Yes Soft to palpation and Yes Hernia present ventral OTHER: - Unable to gauge tenderness but does not overtly grimace or wince during palpation : BLADDER/KIDNEY EXAM: Yes catheter in place Catheter type (Female): urethral EXTERNAL FEMALE EXAM: Yes Hernia present OTHER: -Right femoral central line Extremity: COMMON NORMALS: normal to inspection, full ROM and no clubbing, cyanosis or edema NARRATIVE EXTREMITY EXAM: -Bed-bound at baseline -Chronic bilateral lower extremity lymphedema GENERAL: Yes edema (1-2+ pitting edema of bilateral LEs; pitting edema of bilateral UEs) Neuro: COMMON NORMALS: moves all extremities, no focal motor deficits, no sensory deficits noted and gait normal SENSORIUM/ORIENTATION: Yes alert OTHER: -baseline tremor of RUE Psych: COMMON NORMALS: mental status grossly normal, Normal thought process present, cooperative, normal affect and speech normal ACTIVITY/MOTOR BEHAVIOR: Yes restless (intermittently) SPEECH: Yes normal speech THOUGHT PROCESS: Normal thought process present OTHER: -low threshold for anxiety Skin: COMMON NORMALS: no jaundice, no petechiae and no mottling NARRATIVE SKIN EXAM: -Scattered bruising -chronic wounds involving L calf, anterior leg, dorsum of foot with some areas of superficial slough but primarily good granulation tissue. -L heel ulcer; bone exposed, slough -weeping edema -chronic stasis dermatitis -excoriation and superficial abrasions in skin folds including inguinal Data : 05/29/20 04:00 05/29/20 04:00 Micro: Microbiology 05/25/20 16:33 Urine Culture - Final Urine,Clean Catch Escherichia coli esbl Pseudomonas aeruginosa 05/24/20 13:20 Urine Culture - Final Urine,Clean Catch Pseudomonas aeruginosa Escherichia coli esbl 05/26/20 04:26 Gram Stain - Final Sputum - Endotracheal Tube Aspirate Sputum Culture - Final A&P Assessment and plan (1) Acute kidney injury superimposed on CKD: -Noted to be anuric with worsening renal function -failed trial of IVF and developed fluid overload; repeat fluid challenge yesterday showed she is not fluid responsive -has temporary dialysis catheter (R IJ); one session so far -Has had issues in the past with acute renal impairment including during last admission -Continue to monitor urine output; remains marginal; has Patino catheter -Avoid nephrotoxins, renally dose meds -Nephrology evaluation appreciated -Baseline creatinine appears to be around 1-1.4 though has been as high as 5.7 in the past -in light of decreased EF, could be related to low output -renal US: limited -PERRY on CKD stage 3 -UPEP, SPEP both negative; serum immunofixation shows no monoclonal proteins -BRISSA positive, titer 1:1280, speckled pattern; could be autoimmune vs. sepsis related -on lasix drip Status: Acute (2) Septic shock: -Noted significant leukocytosis, lactic acidosis, with associated acute respiratory failure, acute metabolic encephalopathy, hypotension, acute renal impairment, anuria, fever. Septic shock resolved as no longer febrile, encephalopathy and hypotension resolved -Noted to have decreased ejection fraction of 30-35% on limited echo which is likely contributing to overall clinical decompensation -weaned off pressor support x 48 hrs -Close monitoring of vital signs -intubated due to continued decompensation and fluid overload (05/25); remains on vent support; weaning trial today -has noted UTI and LLE cellulitis with infected ulcers. Based on cultures, switched to Primaxin and Levaquin (renally dosed); d/c Flagyl, Zosyn, and hold Linezolid -repeat blood cx prelim negative; previous cultures grew VRE Enterococcus faecium -had PICC line in place before, now removed; culture of tip negative -repeat UA shows continued evidence of infection; urine cx-ESBL E. coli, pseudomonas aeruginosa, sensitivity noted; previous cultures grew Joslyn albicans. Has had ESBL before. Isolation precautions -Received 4 doses of albumin; give additional doses as needed -sputum cx-prelim negative; gram stain negative -COVID-19 test negative (05/14) -afebrile x 48 hrs, continue to monitor -will need additional debridement of LLE wounds once more stable per surgery Status: Acute (3) Acute respiratory failure: -intubated due to continued decompensation and fluid overload (05/25); remains on vent support -weaning trial when appropriate -daily CXR, ABG while on vent support -noted evidence of fluid overload on imaging; anuric, requiring emergent dialysis -continued close monitoring of respiratory status -sputum cx-prelim negative; gram stain negative -COVID-19 test negative (05/14) Status: Acute Qualifiers: Respiratory failure complication: unspecified whether with hypoxia or hypercapnia Qualified Code(s): J96.00 - Acute respiratory failure, unspecified whether with hypoxia or hypercapnia (4) Anasarca: -anasarca with total positive fluid balance of 11 L -anuric Status: Acute (5) Acute on chronic anemia: -baseline Hg appears to be 10-11 -required transfusion of 2 units PRBCs during last admission -s/p 2 units of PRBCs; anticipate need for transfusion of blood products; continue to monitor closely; Hg stable currently -continue to monitor for bleeding -off AC and antiplatelets Status: Acute (6) Stress-induced cardiomyopathy: -limited Echo: EF=30-35% Status: Acute (7) CVA (cerebral vascular accident): -CT head: chronic changes -carotid US: <50% bilateral ICA stenosis -off ASA due to GI bleed hx; on statin -initially thought to be appropriate for tPA then not given as patient improved; she was evaluated by Dr. Owusu on admission Status: Acute Qualifiers: CVA mechanism: unspecified Qualified Code(s): I63.9 - Cerebral infarction, unspecified (8) Elevated troponin level: -noted elevated troponins; likely type II due to demand ischemia -Cardiology evaluation appreciated -limited echo as noted above; had echo with contrast as well -previously on AC with Eliquis -will likely need outpatient stress testing Status: Acute (9) Intermittent atrial fibrillation: -tachycardic -telemetry monitoring -continue to monitor vital signs -on AC with Eliquis -Echo: EF=30-35% -off ASA due to GI bleed hx Status: Acute (10) Acute metabolic encephalopathy: -In light of continued clinical decompensation including development of septic shock Status: Acute (11) Hypotension: -As noted above Status: Resolved Qualifiers: Hypotension type: unspecified hypotension type Qualified Code(s): I95.9 - Hypotension, unspecified (12) UTI (urinary tract infection): -repeat UA shows continued evidence of infection; urine cx-ESBL E. coli, pseudomonas aeruginosa, sensitivity noted; previous cultures grew Joslyn albicans -on IV antibiotics Status: Acute Qualifiers: Hematuria presence: without hematuria Urinary tract infection type: acute cystitis Qualified Code(s): N30.00 - Acute cystitis without hematuria (13) High anion gap metabolic acidosis: -AG closed -continue to monitor Status: Resolved Additional A&P Information -GERD; on PPI -Morbid obesity: BMI-48 kg/m2 though overall has quite poor nutrition status as reflected by hypoalbuminemia which is contributing to lymphedema. -large hiatal hernia -Dyslipidemia; on statin -Chronic pain; on narcotics -Gram positive bacteremia secondary to LE cellulitis and acutely infected LLE wounds which were surgically debrided during last admission and additional bedside debridement on 8/27; blood cx grew VRE Enterococcus faecium. On Zyvox. Blood cx (05/21, 05/25): negative. Wound care with Santyl, hydrofera blue; continue to f/u at [facility] on d/c -Peripheral vascular disease; seen by Dr. Alejandre during previous admission, s/p peripheral angiogram with no noted significant vascular compromise noted. -COPD, not oxygen dependent at baseline -Vascular dementia -NIDDM type II; A1c-5.3; Accuchecks, ISS, hypoglycemia precautions. DM complicated by nephropathy, PVD, neuropathy -Hypothyroidism; on levothyroxine, TSH wnl -Fecal retention; enemas PRN -NPO; unable to place OGT due to hernia -DVT ppx not done as due to bleeding risk is off AC and cannot have SCDs due to LE wounds -Dispo: [facility] -Code status: FULL code -continue ICU care due to critical illness -Very guarded prognosis Attestations Medical Necessity Statement*: Patient requires hospitalization for continued management of acute renal impairment, anasarca, UTI, LE infected wounds, remains on vent support. Potential transfer this afternoon. Time Spent in Patient Care: Greater than 35 minutes (>than 50% of time spent in counselling and/or direct pt care on unit) . Critical Care Time: The high probability of a clinically significant, sudden or life threatening deterioration of the patient's [cardiovascular, respiratory] system(s) required my full and direct attention, intervention and personal management. The critical care time is as shown. This time is in addition to time spent performing any reported procedures but includes the following: [x] Data and vital sign review and interpretation [x] Patient assessment, examination and intervention [x] Documentation [x] Medication orders and management Critical Care Time (min): 20 Coding Level of Care Code Acute Groutman for Chg Fwd Exam Comprehensive Diagnoses Acute kidney injury superimposed on CKD N17.9; N18.9 Septic shock A41.9; R65.21 Acute respiratory failure J96.00 Respiratory failure complication: unspecified whether with hypoxia or hypercapnia Anasarca R60.1 Acute on chronic anemia D64.9 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
[2020-05-29] MEDS: pantoprazole 40 mg SDV IVP ×2 (09:43→20:13)
[2020-05-29] MEDS: FUROsemide 100 MG in sodium chloride 0.9% 40 ML IV ×2 (10:35→20:14)
--- NOTE | 2020-05-29 10:38 | PC.OT ---
Patient is not able to participate in therapy, will await orders when appropriate.
[2020-05-29] MEDS: dextrose 50% syringe 50 mL IVP (11:39)
[2020-05-29] MEDS: levothyroxine 100 mcg SDV IVP (11:40)
[2020-05-29] MEDS: fentaNYL 50 mcg/mL INJ 2mL 25 MCG IVP ×2 (11:42→23:56)
[2020-05-29] MEDS: collagenase oint 30 gm 1 APPLIC TOPICAL (11:48)
--- NOTE | 2020-05-29 13:46 | P.TS_ITS ---
Transfer Summary Providers Date of Admission: 05/21/20 08:30 Date of Discharge: 05/29/20 Attending Provider at Admission: Vaihbav Mcknight MD Attending Provider at Transfer: Milagros Mcpherson MD Consults: Nephrology Anticipated Date of Transfer: Anticipated date of transfer: 05/29/20 Receiving Facility & Provider: Receiving Provider: [Dr. Toussaint] Receiving facility: [[facility]] Diagnoses at Discharge Discharge Diagnosis (1) Acute kidney injury superimposed on CKD: Status: Acute Problem details: -Noted to be anuric with worsening renal function -failed trial of IVF and developed fluid overload; repeat fluid challenge yesterday showed she is not fluid responsive -has temporary dialysis catheter (R IJ); one session so far -Has had issues in the past with acute renal impairment including during last admission -Continue to monitor urine output; remains marginal; has Patino catheter -Avoid nephrotoxins, renally dose meds -Nephrology evaluation appreciated -Baseline creatinine appears to be around 1-1.4 though has been as high as 5.7 in the past -in light of decreased EF, could be related to low output -renal US: limited -PERRY on CKD stage 3 -UPEP, SPEP both negative; serum immunofixation shows no monoclonal proteins -BRISSA positive, titer 1:1280, speckled pattern; could be autoimmune vs. sepsis related -on lasix drip (2) Septic shock: Status: Acute Problem details: -Noted significant leukocytosis, lactic acidosis, with associated acute respiratory failure, acute metabolic encephalopathy, hypotension, acute renal impairment, anuria, fever. Septic shock resolved as no longer febrile, encephalopathy and hypotension resolved -Noted to have decreased ejection fraction of 30-35% on limited echo which is likely contributing to overall clinical decompensation -weaned off pressor support x 48 hrs -Close monitoring of vital signs -intubated due to continued decompensation and fluid overload (05/25); remains on vent support; weaning trial today -has noted UTI and LLE cellulitis with infected ulcers. Based on cultures, switched to Primaxin and Levaquin (renally dosed); d/c Flagyl, Zosyn, and hold Linezolid -repeat blood cx prelim negative; previous cultures grew VRE Enterococcus faecium -had PICC line in place before, now removed; culture of tip negative -repeat UA shows continued evidence of infection; urine cx-ESBL E. coli, pseudomonas aeruginosa, sensitivity noted; previous cultures grew Joslyn albicans. Has had ESBL before. Isolation precautions -Received 4 doses of albumin; give additional doses as needed -sputum cx-prelim negative; gram stain negative -COVID-19 test negative (05/14) -afebrile x 48 hrs, continue to monitor -will need additional debridement of LLE wounds once more stable per surgery (3) Acute respiratory failure: Status: Acute Problem details: -intubated due to continued decompensation and fluid overload (05/25); remains on vent support -weaning trial when appropriate -daily CXR, ABG while on vent support -noted evidence of fluid overload on imaging; anuric, requiring emergent dialysis -continued close monitoring of respiratory status -sputum cx-prelim negative; gram stain negative -COVID-19 test negative (05/14) Qualifiers: Respiratory failure complication: unspecified whether with hypoxia or hypercapnia Qualified Code(s): J96.00 - Acute respiratory failure, unspecified whether with hypoxia or hypercapnia (4) Anasarca: Status: Acute Problem details: -anasarca with total positive fluid balance of 11 L -anuric (5) Acute on chronic anemia: Status: Acute Problem details: -baseline Hg appears to be 10-11 -required transfusion of 2 units PRBCs during last admission -s/p 2 units of PRBCs; anticipate need for transfusion of blood products; continue to monitor closely; Hg stable currently -continue to monitor for bleeding -off AC and antiplatelets (6) Stress-induced cardiomyopathy: Status: Acute Problem details: -limited Echo: EF=30-35% (7) CVA (cerebral vascular accident): Status: Acute Problem details: -CT head: chronic changes -carotid US: <50% bilateral ICA stenosis -off ASA due to GI bleed hx; on statin -initially thought to be appropriate for tPA then not given as patient improved; she was evaluated by Dr. Owusu on admission Qualifiers: CVA mechanism: unspecified Qualified Code(s): I63.9 - Cerebral infarction, unspecified (8) Elevated troponin level: Status: Acute Problem details: -noted elevated troponins; likely type II due to demand ischemia -Cardiology evaluation appreciated -limited echo as noted above; had echo with contrast as well -previously on AC with Eliquis -will likely need outpatient stress testing (9) Intermittent atrial fibrillation: Status: Acute Problem details: -tachycardic -telemetry monitoring -continue to monitor vital signs -on AC with Eliquis -Echo: EF=30-35% -off ASA due to GI bleed hx (10) Acute metabolic encephalopathy: Status: Acute Problem details: -In light of continued clinical decompensation including development of septic shock (11) Hypotension: Status: Resolved Problem details: -In light of continued clinical decompensation including development of septic shock Qualifiers: Hypotension type: unspecified hypotension type Qualified Code(s): I95.9 - Hypotension, unspecified (12) UTI (urinary tract infection): Status: Acute Problem details: -repeat UA shows continued evidence of infection; urine cx-ESBL E. coli, pseudomonas aeruginosa, sensitivity noted; previous cultures grew Joslyn albicans -on IV antibiotics Qualifiers: Hematuria presence: without hematuria Urinary tract infection type: acute cystitis Qualified Code(s): N30.00 - Acute cystitis without hematuria (13) High anion gap metabolic acidosis: Status: Resolved Problem details: -AG closed -continue to monitor Other Information Additional DC diagnoses/information: -GERD; on PPI -Morbid obesity: BMI-48 kg/m2 though overall has quite poor nutrition status as reflected by hypoalbuminemia which is contributing to lymphedema. -large hiatal hernia -Dyslipidemia; on statin -Chronic pain; on narcotics -Gram positive bacteremia secondary to LE cellulitis and acutely infected LLE wounds which were surgically debrided during last admission and additional be dside debridement on 05/21; blood cx grew VRE Enterococcus faecium. On Zyvox. Blood cx (05/21, 05/25): negative. Wound care with Santyl hydrofera blue; continue to f/u at [facility] on d/c -Peripheral vascular disease; seen by Dr. Alejandre during previous admission, s/p peripheral angiogram with no noted significant vascular compromise noted. -COPD, not oxygen dependent at baseline -Vascular dementia -NIDDM type II; A1c-5.3; Accuchecks, ISS, hypoglycemia precautions. DM complicated by nephropathy, PVD, neuropathy -Hypothyroidism; on levothyroxine, TSH wnl -Fecal retention; enemas PRN Reason for Visit Reason for Visit: Stroke like symptoms Hospital Course Hospital Course: Patient was initially admitted to ICU following evaluation for possible stroke given noted decreased responsiveness, left gaze preference and aphasia. She was evaluated by Dr. Owusu and not deemed an appropriate candidate for tPA due to noted improvement on her arrival to the ER. Patient has been admitted at our facility on multiple occasions, most recently ap proximately 2 weeks prior to this hospital stay. During that admission she had been treated for infected left lower extremity ulcers which required surgical debridement, VRE bacteremia, UTI. She had had a PICC line placed and was to be treated with 4 weeks of Zyvox. She was noted to have atrial fibrillation with RVR so was started on beta-laina for rate control and heparin drip close monitoring of her hemoglobin as she does have underlying anemia and had previously required transfusion of 2 units of PRBCs. As part of her work-up she had an echo done with noted drop in ejection fraction to 30 to 35% with some noted troponin elevation though no significant delta. Cardiology was consulted for further recommendations. Due to concern for continued infection of her lower extremity wounds surgery was consulted and she had further bedside debridement of her wounds. She was then transferred to the cardiac stepdown unit once more stable. Unfortunately during the course of her hospitalization she developed worsening renal function, oliguria and worsening respiratory status after having failed trial of IV fluid hydration. Due to noted decreased responsiveness, fluid overload she was transferred to the ICU for close monitoring. She continued to decompensate with noted severe acidosis and was subsequently intubated. Nephrology was consulted and recommended emergent dialysis so surgery consulted for temporary dialysis catheter placement. During initial trial of hemodialysis patient had significant hypotension at which point procedure was discontinued. She was started on dual pressor support after which dialysis was retried. Unfortunately we were unable to pull off any fluid due to hypotension. She then also developed septic shock with noted acute metabolic encephalopathy, continued renal impairment, acute respiratory failure, hypotension, lactic acidosis and high-grade temperatures. She had ready been screened for COVID-19 and found to be negative. Chest x-ray did not show any signs of acute infection. She also had evaluation for possible GI source of infection which was also negative. 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 She was gradually weaned off pressor support and acidosis resolved and she developed alkalosis. She remains on ventilator support with minimal sedation, has consi stently been breathing over the ventilator. She is grossly edematous with a total fluid balance of approximately 11 to 12 L. Per nephrology recommendations she has been started on a Lasix drip for approximately 24 hours with a urine output of approximately 900 mL within that timeframe. Cultures have resulted with urine cultures growing ESBL E. coli and pseudomonas aeruginosa. Blood cultures have been negative, sputum cultures have also been negative. She has consistently been on IV antibiotic support, tailored per culture sensitivity profile. As part of her work-up she was found to be positive for BRISSA with a titer of 1:1280, speckled pattern which will require further and more specific work-up which may include a renal biopsy once patient is more stable. Surgery was consulted to reevaluate left lower extremity wounds as they are acutely infected. She would likely need additional debridement but is too unstable more aggressive debridement. She did require transfusion of 2 units of PRBCs with hemoglobin stable at 9.5. Cardiology recommended repeat echo with contrast which shows ejection fraction of 60%, no LV thrombus, no regional wall motion abnormalities. She would benefit from anticoagulation once able to tolerate this. I have had multiple discussions with patient's son Hugo Emery outlining patient's critical status, overall guarded prognosis given her multiple underlying comorbidities, multiple hospital readmissions, limited quality of life, poor nutritional status. He has consistently desired aggressive measures and has requested patient to be transferred to a higher level of care. Unfortunately following several calls to [facility] and [facility] in [place], [facility] in [place], there are no ICU beds currently available. I was able to get the patient accepted to [facility] in [place], bed has been assigned and we are currently working on arranging for transport. Patient son has been updated accordingly. Physical Exam Const: COMMON NORMALS: no acute distress and alert GENERAL APPEARANCE: ill appearing, Edematous and patient mechanically ventilated NUTRITIONAL APPEARANCE: obese morbidly obese ORIENTATION/CONSCIOUSNESS: Yes confused OTHER: -intermittently restless, minimal sedation with Fentanyl HENMT: COMMON NORMALS: normocephalic and atraumatic HEAD & SCALP: normocephalic and atraumatic MOUTH: moist mucous membranes abnormal Details: parched Eye: COMMON NORMALS: Equal, round and reactive pupils present, EOMs intact bilaterally and conjunctivae normal CONJUNCTIVA: Yes conjunctivae normal PUPIL: Yes Equal, round and reactive pupils present Neck/C-Spine: COMMON NORMALS: full ROM GENERAL: Yes normal visual inspection and Yes trachea midline OTHER: -contracted, leans to the L chronically -temporary dialysis catheter on R Resp: COMMON NORMALS: normal respiratory effort, No retractions and No use of accessory muscles EFFORT & INSPECTION: Yes tachypneic AUSCULTATION: rales and diminished lung sounds OTHER: -on vent support (400/28%/8); ETT-23 cm @ lip. Breathing over vent consistently Cardio: COMMON NORMALS: S1 normal heart sound present, S2 normal heart sound present and No murmurs present (Cardio) RATE: tachycardic RHYTHM: abnormal rhythm irregularly irregular HEART SOUNDS: S1 normal heart sound present and S2 normal heart sound present GI: COMMON NORMALS: Normal to inspection, nondistended, normoactive bowel sounds present and Soft to palpation INSPECTION: Yes central obesity PALPATION: Yes Soft to palpation and Yes Hernia present ventral OTHER: - Unable to gauge tenderness but does not overtly grimace or wince during palpation : BLADDER/KIDNEY EXAM: Yes catheter in place Catheter type (Female): urethral EXTERNAL FEMALE EXAM: Yes Hernia present OTHER: -Right femoral central line Extremity: COMMON NORMALS: normal to inspection, full ROM and no clubbing, cyanosis or edema NARRATIVE EXTREMITY EXAM: -Bed-bound at baseline -Chronic bilateral lower extremity lymphedema GENERAL: Yes edema (1-2+ pitting edema of bilateral LEs; pitting edema of bilateral UEs) Neuro: COMMON NORMALS: moves all extremities, no focal motor deficits, no sensory deficits noted and gait normal SENSORIUM/ORIENTATION: Yes alert OTHER: -baseline tremor of RUE Psych: COMMON NORMALS: mental status grossly normal, Normal thought process present, cooperative, normal affect and speech normal ACTIVITY/MOTOR BEHAVIOR: Yes restless (intermittently) SPEECH: Yes normal speech THOUGHT PROCESS: Normal thought process present OTHER: -low threshold for anxiety Skin: COMMON NORMALS: no jaundice, no petechiae and no mottling NARRATIVE SKIN EXAM: -Scattered bruising -chronic wounds involving L calf, anterior leg, dorsum of foot with some areas of superficial slough but primarily good granulation tissue. -L heel ulcer; bone exposed, slough -weeping edema -chronic stasis dermatitis -excoriation and superficial abrasions in skin folds including inguinal TS Data Data Completed and Pending: Completed Studies During Hospitalization Category Date Time Status CT chest abd pel wo con Stat Cat Scan 05/25/20 16:[address] head wo con* [id number] Stat Cat Scan 05/21/20 05:45 Completed CXRP [XR chest 1V portable [id number]] R outine Exams 05/26/20 06:00 Completed CXRP [XR chest 1V portable [id number]] R outine Exams 05/27/20 06:00 Completed XR chest 1V susan ble [id number] Routine Exams 05/28/20 06:00 Completed XR chest 1V susan ble [id number] Routine Exams 05/29/20 06:00 Completed XR chest 1V susan ble [id number] Stat Exams 05/21/20 08:16 Completed XR chest 1V susan ble [id number] Stat Exams 05/25/20 06:41 Completed XR chest 1V susan ble [id number] Stat Exams 05/25/20 17:35 Completed XR chest 1V susan ble [id number] Stat Exams 05/25/20 20:59 Completed CV carotid duplex BI* [id number] Routine Ultrasound 05/21/20 12:14 Completed CV echo limited [id number] Routine Ultrasound 05/22/20 16:44 Completed CV echo lmt wo/w contras [id number] Rout ine Ultrasound 05/27/20 19:10 Completed US renal BI with bladder Routine Ultrasound 05/25/20 06:00 Completed US/CV paperwork R outine Ultrasound 05/27/20 Completed Pending at discharge Category Date Time Status Anti-Neutrophil C utoplasmic AB Rout ine Lab 05/26/20 12:52 Received Arterial Blood Ga s W/O Coox AM LABS Lab 05/29/20 04:00 Ordered Blood Culture Sta t Lab 05/25/20 18:15 Results Complete Blood Co unt w/Auto AM LABS Lab 05/30/20 04:00 Ordered Complete Blood Co unt w/Auto AM LABS Lab 05/31/20 04:00 Ordered Comprehensive Met abolic Panel AM LA BS Lab 05/30/20 04:00 Ordered Comprehensive Met abolic Panel AM LA BS Lab 05/31/20 04:00 Ordered Magnesium AM LABS Lab 05/30/20 04:00 Ordered Magnesium AM LABS Lab 05/31/20 04:00 Ordered Phosphorus AM LAB S Lab 05/30/20 04:00 Ordered Phosphorus AM LAB S Lab 05/31/20 04:00 Ordered Labs from last 24 hours 05/29/20 05/29/20 05/29/20 04:00 04:00 04:00 WBC 9.1 RBC 3.24 L Hgb 9.5 L Hct 29.6 L MCV 91.4 MCH 29.3 MCHC 32.1 RDW 17.8 H Plt Count 92 L MPV 9.8 Neut % (Auto) 73.4 Lymph % (Auto) 16.7 [place] % (Auto) 3.7 Eos % (Auto) 5.5 Baso % (Auto) 0.3 Neut # (Auto) 6.66 Lymph # (Auto) 1.5 [place] # (Auto) 0.3 Eos # (Auto) 0.5 Baso # (Auto) 0.0 Nucleated RBC % (a uto) 0 Nucleated RBCs # 0.0 Sodium 133 L Potassium 3.5 Chloride 100 Carbon Dioxide 23 Anion Gap 13.5 BUN 24 H Creatinine 2.2 H GFR Calculation Not Reportable Glucose 76 POC Glucose Calculated Osmolal ity 272 L Lactate 2.6 H Calcium 7.4 L Phosphorus 4.1 Magnesium 1.7 Total Bilirubin 0.8 AST 16 ALT 14 Alkaline Phosphata se 120 H Total Protein 4.9 L Albumin 2.2 L Globulin 2.7 05/29/20 05/28/20 05/28/20 00:40 20:44 20:00 WBC RBC Hgb Hct MCV MCH MCHC RDW Plt Count MPV Neut % (Auto) Lymph % (Auto) [place] % (Auto) Eos % (Auto) Baso % (Auto) Neut # (Auto) Lymph # (Auto) [place] # (Auto) Eos # (Auto) Baso # (Auto) Nucleated RBC % (a uto) Nucleated RBCs # Sodium Potassium Chloride Carbon Dioxide Anion Gap BUN Creatinine GFR Calculation Glucose POC Glucose 70 90 66 Calculated Osmolal ity Lactate Calcium Phosphorus Magnesium Total Bilirubin AST ALT Alkaline Phosphata se Total Protein Albumin Globulin 05/28/20 17:16 WBC RBC Hgb Hct MCV MCH MCHC RDW Plt Count MPV Neut % (Auto) Lymph % (Auto) [place] % (Auto) Eos % (Auto) Baso % (Auto) Neut # (Auto) Lymph # (Auto) [place] # (Auto) Eos # (Auto) Baso # (Auto) Nucleated RBC % (a uto) Nucleated RBCs # Sodium Potassium Chloride Carbon Dioxide Anion Gap BUN Creatinine GFR Calculation Glucose POC Glucose 72 Calculated Osmolal ity Lactate Calcium Phosphorus Magnesium Total Bilirubin AST ALT Alkaline Phosphata se Total Protein Albumin Globulin Vitals: Last Vital Signs Temp 97.7 F 05/29/20 07:00 Pulse 100 05/29/20 12:00 Resp 14 05/29/20 13:24 BP 131/96 05/29/20 12:00 Pulse Ox 100 05/29/20 13:24 TS Medications Medications Home Medications acetaminophen 650 mg PO Q6H PRN 05/22/20 [History Confirmed 05/22/20] aripiprazole 5 mg PO BID 05/22/20 [History Confirmed 05/22/20] aspirin 81 mg PO DAILY 05/22/20 [History Confirmed 05/22/20] atorvastatin 40 mg PO DAILY 05/22/20 [History Confirmed 05/22/20] cyclobenzaprine 5 mg PO TID PRN 05/22/20 [History Confirmed 05/22/20] fluticasone furoate-vilanterol [Breo Ellipta] 1 inh INHALATION DAILY 05/22/20 [History Confirmed 05/22/20] furosemide [Lasix] 40 mg PO DAILY 05/22/20 [History Confirmed 05/22/20] insulin aspart U-100 See Rx Instructions .ROUTE .COMPLEX 05/22/20 [History Confirmed 05/22/20] levothyroxine 125 mcg PO DAILY 05/22/20 [History Confirmed 05/22/20] linezolid 600 mg PO BID 05/22/20 [History Confirmed 05/22/20] metoprolol tartrate 50 mg PO BID 05/22/20 [History Confirmed 05/22/20] mirtazapine 45 mg PO BEDTIME 05/22/20 [History Confirmed 05/22/20] multivitamin 1 tab PO DAILY 05/22/20 [History Confirmed 05/22/20] nystatin 1 applic TOPICAL BID 05/22/20 [History Confirmed 05/22/20] oxycodone-acetaminophen [Percocet] 1 tab PO Q4H PRN 05/22/20 [History Confirmed 05/22/20] pantoprazole 40 mg PO DAILY 05/22/20 [History Confirmed 05/22/20] baxshlweq-gitsovyq-zdjkq-w.pet [Hemorrhoidal Cream] 1 applic ID BID PRN 05/22/20 [History Confirmed 05/22/20] polyethylene glycol 3350 17 g PO DAILY PRN 05/22/20 [History Confirmed 05/22/20] senna 8.6 mg PO BID 05/22/20 [History Confirmed 05/22/20] simvastatin 20 mg PO BEDTIME 05/22/20 [History Confirmed 05/22/20] venlafaxine 150 mg PO DAILY 05/22/20 [History Confirmed 05/22/20] Active Medications Acetaminophen (Tylenol) 650 mg ID Q6H PRN PRN Reason: FEVER Last Admin: 05/26/20 22:15 Dose: 650 mg Documented by: Apixaban (Eliquis) 2.5 mg PO BID [facility] [place] Last Admin: 05/29/20 07:22 Dose: Not Given Documented by: Aripiprazole (Abilify) 5 mg PO BID [facility] [place] Last Admin: 05/29/20 07:22 Dose: Not Given Documented by: Atorvastatin Calcium (Lipitor) 40 mg PO DAILY [facility] [place] Last Admin: 05/29/20 07:24 Dose: Not Given Documented by: Collagenase (Santyl) 1 applic TOPICAL DAILY [facility] [place] Last Admin: 05/29/20 11:48 Dose: 1 applic Documented by: Dextrose (D50w) 50 ml IVP PRN PRN; Protocol PRN Reason: hypoglycemia protocol Last Admin: 05/29/20 11:39 Dose: 50 ml Documented by: Fentanyl (Sublimaze) 25 mcg IVP Q2H PRN PRN Reason: Severe Pain or agitation Last Admin: 05/29/20 11:42 Dose: 25 mcg Documented by: Glucagon (Glucagen) 1 mg IM ONCE PRN; Protocol PRN Reason: Adult Acute Hypoglycemia Prot. Dextrose (D5w) 500 mls @ 100 mls/hr IV ONCE PRN; Protocol PRN Reason: Adult Acute Hypoglycemia Prot Last Infusion: 05/25/20 19:46 Dose: Infused Documented by: Linezolid (Zyvox Premix) 600 mg in 300 mls @ 300 mls/hr IV Q12H [facility] [place]; Protocol Last Admin: 05/28/20 02:07 Dose: 300 mls/hr Documented by: Albumin Human (Albumin) 12.5 gm in 50 mls @ 60 mls/hr IV PRN PRN PRN Reason: Hypotension and/or symptomatic Albumin Human (Albumin) 12.5 gm in 50 mls @ 60 mls/hr IV PRN PRN PRN Reason: Hypotension and/or symptomatic Norepinephrine Bitartrate 4 mg (/ Dextrose) 254 mls @ 0 mls/hr IV .Q0M [facility]; Protocol Last Titration: 05/27/20 16:00 Dose: 0 mcg/min, 0 mls/hr Documented by: Norepinephrine Bitartrate 8 mg (/ Dextrose) 508 mls @ 0 mls/hr IV .Q0M [facility]; Protocol Last Admin: 05/27/20 03:02 Dose: 6 mcg/min, 22.9 mls/hr Documented by: Fentanyl 1,000 mcg/ Sodium (Chloride) 100 mls @ 0 mls/hr IV .Q0M [facility]; Protocol Last Admin: 05/29/20 13:24 Dose: 100 mcg/hr, 10 mls/hr Documented by: Furosemide 100 mg/ Sodium (Chloride) 50 mls @ 5 mls/hr IV .Q10H [facility]; Protocol Last Admin: 05/29/20 10:35 Dose: 6 mg/hr, 3 mls/hr Documented by: Imipenem/Cilastatin Sodium 250 (mg/ Sodium Chloride) 100 mls @ 200 mls/hr IV Q6H [facility]; Protocol Last Infusion: 05/29/20 10:15 Dose: Infused Documented by: Levofloxacin/Dextrose (Levaquin-D5w) 750 mg in 150 mls @ 100 mls/hr IV Q48H [facility] [place]; Protocol Last Admin: 05/28/20 09:30 Dose: 100 mls/hr Documented by: Insulin Aspart (Novolog) 0 unit SUBCUT TIDWM [facility] [place]; Protocol Last Admin: 05/29/20 11:48 Dose: Not Given Documented by: Levothyroxine Sodium (Synthroid) 125 mcg PO DAILY [facility] [place] Last Admin: 05/29/20 09:05 Dose: Not Given Documented by: Levothyroxine Sodium (Synthroid) 100 mcg IVP DAILY [facility] [place] Last Admin: 05/29/20 11:40 Dose: 100 mcg Documented by: Lorazepam (Ativan) 2 mg IVP Q4H PRN PRN Reason: ANXIETY Magnesium Hydroxide (Milk Of Magnesia) 30 ml PO DAILY PRN PRN Reason: Constipation Metoprolol Tartrate (Lopressor) 50 mg PO BID [facility] [place] Last Admin: 05/29/20 09:05 Dose: Not Given Documented by: Metoprolol Tartrate (Metoprolol Tartrate) 5 mg IV Q4H PRN PRN Reason: tachycardia Last Admin: 05/26/20 19:59 Dose: 5 mg Documented by: Midazolam HCl (Versed) 1 mg IVP Q2H PRN PRN Reason: AGITATION Last Admin: 05/28/20 14:51 Dose: 1 mg Documented by: Morphine Sulfate (Morphine) 1 mg IVP Q2H PRN PRN Reason: SEVERE PAIN Last Admin: 05/26/20 02:28 Dose: 1 mg Documented by: Multivitamins Therapeutic (Multivitamin Tab) 1 tab PO DAILY [facility] [place] Last Admin: 05/29/20 09:06 Dose: Not Given Documented by: Neomycin/Polymyxin/Bacitracin (Neosporin Oint Tube) 1 applic TOPICAL BID PRN PRN Reason: with dressing changes Last Admin: 05/21/20 15:58 Dose: 1 applic Documented by: Ondansetron HCl (Zofran) 4 mg PO TID PRN PRN Reason: Nausea Last Admin: 05/21/20 16:34 Dose: 4 mg Documented by: Pantoprazole Sodium (Protonix) 40 mg IVP Q12H [facility] Last Admin: 05/29/20 09:43 Dose: 40 mg Documented by: Senna/Docusate Sodium (Senna-S) 1 tab PO DAILY [facility] Last Admin: 05/29/20 09:06 Dose: Not Given Documented by: Venlafaxine HCl (Effexor Xr) 150 mg PO DAILY [facility] Last Admin: 05/29/20 09:06 Dose: Not Given Documented by: Discharge Plan Discharge Patient Disposition: Xfer Other Condition: Stable Prescriptions: No Action multivitamin Tablet 1 tab PO DAILY RF: 0 Lasix 40 mg Tablet 40 mg PO DAILY RF: 0 atorvastatin 40 mg Tablet 40 mg PO DAILY RF: 0 senna 8.6 mg Tablet 8.6 mg PO BID RF: 0 polyethylene glycol 3350 17 gram Powder In Packet 17 g PO DAILY PRN (Reason: Constipation) RF: 0 venlafaxine 150 mg Capsule,Extended Release 24hr 150 mg PO DAILY RF: 0 aspirin 81 mg Tablet,Delayed Release (Dr/Ec) 81 mg PO DAILY RF: 0 acetaminophen 650 mg Tablet Extended Release 650 mg PO Q6H PRN (Reason: Pain) RF: 0 Percocet 5-325 mg Tablet 1 tab PO Q4H PRN (Reason: Pain) RF: 0 linezolid 600 mg Tablet 600 mg PO BID RF: 0 insulin aspart U-100 100 unit/mL Solution See Rx Instructions .ROUTE .COMPLEX RF: 0 pantoprazole 40 mg Tablet,Delayed Release (Dr/Ec) 40 mg PO DAILY RF: 0 simvastatin 20 mg Tablet 20 mg PO BEDTIME RF: 0 levothyroxine 125 mcg Tablet 125 mcg PO DAILY RF: 0 metoprolol tartrate 50 mg Tablet 50 mg PO BID RF: 0 mirtazapine 45 mg Tablet 45 mg PO BEDTIME RF: 0 nystatin 100,000 unit/gram Powder 1 applic TOPICAL BID RF: 0 cyclobenzaprine 5 mg Tablet 5 mg PO TID PRN (Reason: Muscle Spasm) RF: 0 aripiprazole 5 mg Tablet 5 mg PO BID RF: 0 Hemorrhoidal Cream 0.25-1 % Cream 1 applic ID BID PRN (Reason: Hemorrhoids) RF: 0 Breo Ellipta 200-25 mcg/dose Blister With Device 1 inh INHALATION DAILY RF: 0 Discharge Activity: Bedrest Transfer Attestations Time Spent in Transfer Care*: critical care time Critical Care Time (min): 20 Specific Discharge Activities: Specific discharge activities: educating and/or supporting family/caregiver (son Hugo), discussing with pcp/other providers, discussing with case making machine operator/social workers/dc planners, documenting/other paperwork and evaluating patient/reviewing data Status at Transfer: Behavioral status at transfer: cooperative and dependent in ADL's , Functional status at transfer: bed bound Quality Metrics Clinical Quality Measures: During this hospital stay, did patient experience: Stroke Contraindication to Antithrombotic: Drug treatment not indicated Contraindication to Anticoagulation: Medical contraindication (acute anemia) Contraindication to Statin: Statin prescribed Contraindication to tPA: Treatment not indicated Coding Level of Care Code Acute Director Presales for [facility] Fwd Exam Comprehensive Diagnoses Acute kidney injury superimposed on CKD N17.9; N18.9 Septic shock A41.9; R65.21 Acute respiratory failure J96.00 Respiratory failure complication: unspecified whether with hypoxia or hypercapnia Anasarca R60.1 Acute on chronic anemia D64.9 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
--- NOTE | 2020-05-29 14:31 | PC.SOCIAL ---
Spoke extensively with Son regarding the transfer process and the fact that if family request transfer that we can't say for sure but is likely that patient/ family will be responsible for transport and is very costly. Son is adamant that he will not send his mother to [facility]. He starts out by saying [facility] Ulloa is [place] is 2.2 stars so she will not be going there. This nurse explained that patient was accepted at [facility] in [facility] and they have 3.5 stars. He again indicates she will not go to [facility]. Updated Dr Linares and Nurse Kwong of this and per Elenita they are already aware. In addition updated Son Hugo that the employment representative from the [facility] may be calling him for more information related to Level II approval to be discharged back to SNF ([facility]). This nurse explained in detail that since she had a stay in a behavioral health unit [facility] in [facility] in Apr-May 2019 that this level II with the state is required so she can return to facility. [facility] indicates this will need to be completed prior to her returning there should her status improve to where she can. It was explained that [facility] requires a review to ensure patient is safe to live among other individuals and has the required need to be in a facility. He verbalized understanding and had no questions. Later Nery Mortar Worker called and has spoken with the Son and per her he indicates he does not understand the process above. Updated Nery this was explained in detail and Son posed no questions and this is a [facility] requirement. Kathia from [facility] will be calling Son at some point to gain additional information related to her stay in the [facility] unit. Explained to Nery if needed am happy to explain information again to the Son.
--- NOTE | 2020-05-29 14:40 | PC.NURSE ---
Addendum entered by Elenita Duron RN 05/29/20 18:29: 2.4 star not start. Original Note: Son, Hugo Younger, called, spoke with him about the impending transfer. Hugo stated he now did not want hismother transferred to [facility]. He stated he looked it up and it was a [address] Mcpherson notified. CYN Gabriel , notified, as Hugo was wanting to speak with her. Awaiting further orders, decisions.
[2020-05-29 14:54] LABS: Glucose Point of Care 76 mg/dL (70-110)
[2020-05-29 14:54] LABS: Glucose Point of Care 65 mg/dL (70-110)
--- NOTE | 2020-05-29 15:07 | P.PN_ITS ---
Subjective Subjective: Interval history: She was on lasix gtt, 2 unit pRBC and UO is ~645 ml. Her antibiotics were changed to primaxin and levaquin from zosyn. Urine CX growing ESBL E. coli and Psudomonas. Plan to start her on lasix gtt this morning and continue with another pRBC. She has been off pressors. Remains in a. fib with HR 90s to 120s Medications: Reviewed: Yes Medication Review Details: Current Medications Acetaminophen (Tylenol) 650 mg UT Q6H PRN PRN Reason: FEVER Last Admin: 05/26/20 22:15 Dose: 650 mg Documented by: Apixaban (Eliquis) 2.5 mg PO BID [facility] Last Admin: 05/28/20 07:51 Dose: Not Given Documented by: Aripiprazole (Abilify) 5 mg PO BID [facility] Last Admin: 05/28/20 07:52 Dose: Not Given Documented by: Atorvastatin Calcium (Lipitor) 40 mg PO DAILY [facility] Last Admin: 05/28/20 07:52 Dose: Not Given Documented by: Collagenase (Santyl) 1 applic TOPICAL DAILY [facility] Last Admin: 05/28/20 08:31 Dose: 1 applic Documented by: Dextrose (D50w) 25 ml IVP ONCE PRN; Protocol PRN Reason: hypoglycemia protocol Last Admin: 05/28/20 11:51 Dose: 25 ml Documented by: Dextrose (D50w) 50 ml IVP PRN PRN; Protocol PRN Reason: hypoglycemia protocol Fentanyl (Sublimaze) 25 mcg IVP Q2H PRN PRN Reason: Severe Pain or agitation Last Admin: 05/26/20 18:02 Dose: 25 mcg Documented by: Glucagon (Glucagen) 1 mg IM ONCE PRN; Protocol PRN Reason: Adult Acute Hypoglycemia Prot. Dextrose (D5w) 500 mls @ 100 mls/hr IV ONCE PRN; Protocol PRN Reason: Adult Acute Hypoglycemia Prot Last Infusion: 05/25/20 19:46 Dose: Infused Documented by: Linezolid (Zyvox Premix) 600 mg in 300 mls @ 300 mls/hr IV Q12H [facility]; Protocol Last Admin: 05/28/20 02:07 Dose: 300 mls/hr Documented by: Albumin Human (Albumin) 12.5 gm in 50 mls @ 60 mls/hr IV PRN PRN PRN Reason: Hypotension and/or symptomatic Albumin Human (Albumin) 12.5 gm in 50 mls @ 60 mls/hr IV PRN PRN PRN Reason: Hypotension and/or symptomatic Norepinephrine Bitartrate 4 mg (/ Dextrose) 254 mls @ 0 mls/hr IV .Q0M [facility]; Protocol Last Titration: 05/27/20 16:00 Dose: 0 mcg/min, 0 mls/hr Documented by: Norepinephrine Bitartrate 8 mg (/ Dextrose) 508 mls @ 0 mls/hr IV .Q0M [facility]; Protocol Last Admin: 05/27/20 03:02 Dose: 6 mcg/min, 22.9 mls/hr Documented by: Fentanyl 1,000 mcg/ Sodium (Chloride) 100 mls @ 0 mls/hr IV .Q0M [facility]; Protocol Last Admin: 05/28/20 09:55 Dose: 50 mcg/hr, 5 mls/hr Documented by: Furosemide 100 mg/ Sodium (Chloride) 50 mls @ 3 mls/hr IV .[id number] [facility]; Protocol Last Admin: 05/28/20 08:16 Dose: 6 mg/hr, 3 mls/hr Documented by: Imipenem/Cilastatin Sodium 250 (mg/ Sodium Chloride) 100 mls @ 200 mls/hr IV Q6H [facility]; Protocol Last Admin: 05/28/20 09:30 Dose: 200 mls/hr Documented by: Levofloxacin/Dextrose (Levaquin-D5w) 750 mg in 150 mls @ 100 mls/hr IV Q48H [facility]; Protocol Last Admin: 05/28/20 09:30 Dose: 100 mls/hr Documented by: Insulin Aspart (Novolog) 0 unit SUBCUT TIDWM [facility]; Protocol Last Admin: 05/28/20 07:51 Dose: Not Given Documented by: Levothyroxine Sodium (Synthroid) 125 mcg PO DAILY [facility] Last Admin: 05/28/20 07:52 Dose: Not Given Documented by: Lorazepam (Ativan) 2 mg IVP Q4H PRN PRN Reason: ANXIETY Magnesium Hydroxide (Milk Of Magnesia) 30 ml PO DAILY PRN PRN Reason: Constipation Metoprolol Tartrate (Lopressor) 50 mg PO BID [facility] Last Admin: 05/28/20 07:54 Dose: Not Given Documented by: Metoprolol Tartrate (Metoprolol Tartrate) 5 mg IV Q4H PRN PRN Reason: tachycardia Last Admin: 05/26/20 19:59 Dose: 5 mg Documented by: Midazolam HCl (Versed) 1 mg IVP Q2H PRN PRN Reason: AGITATION Last Admin: 05/28/20 07:32 Dose: 1 mg Documented by: Morphine Sulfate (Morphine) 1 mg IVP Q2H PRN PRN Reason: SEVERE PAIN Last Admin: 05/26/20 02:28 Dose: 1 mg Documented by: Multivitamins Therapeutic (Multivitamin Tab) 1 tab PO DAILY [facility] Last Admin: 05/28/20 07:54 Dose: Not Given Documented by: Neomycin/Polymyxin/Bacitracin (Neosporin Oint Tube) 1 applic TOPICAL BID PRN PRN Reason: with dressing changes Last Admin: 05/21/20 15:58 Dose: 1 applic Documented by: Ondansetron HCl (Zofran) 4 mg PO TID PRN PRN Reason: Nausea Last Admin: 05/21/20 16:34 Dose: 4 mg Documented by: Pantoprazole Sodium (Protonix) 40 mg IVP Q12H [facility] Last Admin: 05/28/20 09:30 Dose: 40 mg Documented by: Senna/Docusate Sodium (Senna-S) 1 tab PO DAILY [facility] Last Admin: 05/28/20 07:58 Dose: Not Given Documented by: Venlafaxine HCl (Effexor Xr) 150 mg PO DAILY [facility] Last Admin: 05/28/20 07:59 Dose: Not Given Documented by: Vitals/I&O/Wt Last Vital Signs Temp 97.6 F 05/29/20 14:00 Pulse 98 05/29/20 14:00 Resp 14 05/29/20 13:24 BP 110/79 05/29/20 14:00 Pulse Ox 98 05/29/20 14:00 05/29/20 05/29/20 05/29/20 06:59 14:59 22:59 Intake Total 163.333 / 895.641 206.35 / 206.35 Output Total 250 / 730 210 / 210 Balance -86.667 / 165.641 -3.65 / -3.65 Weight last 48 hrs Weight 280 lb Weight 281 lb Physical Exam Const: GENERAL APPEARANCE: patient mechanically ventilated NUTRITIONAL APPEARANCE: obese Resp: COMMON NORMALS: clear to auscultation bilaterally (anteriorly) AUSCULTATION: clear to auscultation bilaterally (anteriorly), crackles, no rales and no rhonchi Cardio: PALPATION: abnormal PMI RATE: tachycardic RHYTHM: abnormal rhythm irregularly irregular HEART SOUNDS: no gallops and no murmurs PERIPHERAL PULSES: radial pulses present, posterior tibial pulses present and dorsalis pedis present GI: COMMON NORMALS: Soft to palpation PALPATION: Yes Soft to palpation Extremity: GENERAL: Yes edema (3-4+ edema, anasarca+), No pallor and Yes other findings (leg ulcers (left foot wound dressed), erythema present bilaterally) Neuro: WAI COMA SCALE: GCS not evaluated (patient currently sedated; spontaneous eye opening and extremity movement present) Data : 05/29/20 04:00 05/29/20 04:00 Micro: Microbiology 05/25/20 16:33 Urine Culture - Final Urine,Clean Catch Escherichia coli esbl Pseudomonas aeruginosa 05/24/20 13:20 Urine Culture - Final Urine,Clean Catch Pseudomonas aeruginosa Escherichia coli esbl 05/26/20 04:26 Gram Stain - Final Sputum - Endotracheal Tube Aspirate Sputum Culture - Final A&P Assessment and plan (1) Septic shock: -recent blood cx negative so far, Urine cx with ESBL E. coli and Pseudomonas. -currently off levophed and Dobutamine. -On broad spectrum antibiotics. Status: Acute (2) Atrial fibrillation: Atrial fib with RVR; unable to get PO metoprolol. start on low dose metoprolol 2.5 -5 mg IV Q 4 Hr PRN. -Eliquis held given h/o transfusion dependent anemia and drop in H&H. No obvious GI bleed per history. -recommend starting on heparin gtt once feasible given high [id number] score. Status: Acute Qualifiers: Atrial fibrillation type: longstanding persistent Qualified Code(s): I48.11 - Longstanding persistent atrial fibrillation (3) Cardiomyopathy: Concern for Stress induced cardiomyopathy, however study was TDS. -However, underlying CAD is a possibility. She has h/o CVA and PAD. -Not a good candidate now for any further work up with worsening renal function. -She has some volume overload in setting of ARF, however I do not think this is decompensated CHF that we are dealing with right now. -Her FiO2 requirement is at 0.28. -Repeat limited TTE with contrast showing improved LV function to 60% (off pressors). No RWMA. NO LV thrombus. Status: Acute Qualifiers: Cardiomyopathy type: unspecified Qualified Code(s): I42.9 - Cardiomyopathy, unspecified (4) Acute renal failure: -Required emergent dialysis on 05/25. -responded somewhat to lasix yesterday. continued on lasix gtt. -f/u BMP and I/O's closely. Status: Acute Qualifiers: Acute renal failure type: with acute tubular necrosis Qualified Code(s): N17.0 - Acute kidney failure with tubular necrosis (5) NSTEMI (non-ST elevated myocardial infarction): Likely type 2 in etiology due to underlying sepsis. Status: Acute (6) Type 2 diabetes mellitus: Status: Chronic Qualifiers: Diabetes mellitus complication status: with other specified complication Diabetes mellitus adjunct faculty for medical terminology insulin use: without residential use Qualified Code(s): E11.69 - Type 2 diabetes mellitus with other specified complication (7) Acute metabolic encephalopathy: Status: Acute Additional A&P Information Anion gap Metabolic acidosis Lactic acidosis: Patient was on and later discharged on Zyvox on 05/15/20; it can potentially cause lactic acidosis. Acute respiratory failure: intubated given altered mental status; On FiO2 0.28 H/O VRE becteremia in 04/2020 h/o ESBL UTI Underlying PNA ? Infected left foot ulcer : ?osteomyelitis Anemia: Status post 2 units of packed RBC. Attestations Medical Necessity Statement*: As per primary team Coding Level of Care Code Acute Solid Propellant Processor for [facility] Diagnoses Septic shock A41.9; R65.21 Atrial fibrillation I48.11 Atrial fibrillation type: longstanding persistent Cardiomyopathy I42.9 Cardiomyopathy type: unspecified Acute renal failure N17.0 Acute renal failure type: with acute tubular necrosis NSTEMI (non-ST elevated myocardial infarction) I21.4 Type 2 diabetes mellitus E11.69 Diabetes mellitus complication status: with other specified complication Diabetes mellitus residential insulin use: without residential use Acute metabolic encephalopathy G93.41
--- NOTE | 2020-05-29 18:33 | PC.NURSE ---
Verified through Lian ADDISON, pt not transferring, son Hugo Emery, who requested this transfer is now refusing.
[2020-05-29 18:41] LABS: Glucose Point of Care 74 mg/dL (70-110)
--- NOTE | 2020-05-29 19:00 | PC.NURSE ---
All patient care and documentation by Sarah Wolfe, student nurse (also [employer]) directly supervised by this nurse.
--- NOTE | 2020-05-29 19:01 | PC.NURSE ---
Shift summary: Pt remains intubated on FIO2 of 28. Pt was able to follow commands. She does not like her left hand touched nor does she like her neck to be straightened up. She remains very edematous, pitting edema even on her abdomen, Despite increasing the Lasix gtt to 10mg/hr. She still has Fentanyl at 10mcg/Hr. She has a CVL right groin dressing changed twice today, Island dressing used, as there are skin tears/ raw areas right next to insertion area. Her bottom is macera rajesh. Dressing change done on skin tears on left arm, ulcer right heel and whole lower leg/foot on the left. Her left heel is covered with eschar, does not appear to have had any improvement since debridement on admit day. She was incontinent of BM. Hypoglycemic at noon, 65mg/dl, 1 amp D50 administered, No D5W IV fluids at this time, as she is fluid overloaded. only 400ml of clear dark yellow urine this shift. She was bathed today. She fights against oral care. Son, Hugo Younger, disparaging of staff (to and about Dr Mcpherson) demanded her to be transferred to a different facility, then refused.
[2020-05-30] VITALS (58 sets, daily range): BP systolic 82–164; BP diastolic 54–114; PULSE 99–143; RESP 8–13; TEMP 36.5–37.1; O2SAT 70–100
[2020-05-30] MEDS: midazolam 1 mg/mL INJ 2 mL IVP ×2 (00:02→02:59)
[2020-05-30 00:16] LABS: Glucose Point of Care 73 mg/dL (70-110)
[2020-05-30] MEDS: lanolin oint 7 gm 1 APPLIC TOPICAL (03:12)
[2020-05-30 04:39] LABS: Basophils % 0.2 %; Eosinophils # 0.6 10^3/uL (0.0-0.8); Eosinophils % 5.6 %; Hematocrit 32.5 % (37.0-47.0); Hemoglobin 10.3 g/dL (11.5-15.3); Lymphocytes # 1.7 10^3/uL (0.8-4.8); Lymphocytes % 16.7 %; Mean Corpuscular HGB Conc 31.7 g/dL (30.0-36.0); Mean Corpuscular Hemoglobin 29.1 pg (28.0-34.0); Mean Corpuscular Volume 91.8 fL (81-99); Mean Platelet Volume 10.4 fL (7.4-10.4); Monocytes # 0.3 10^3/uL (0.2-0.9); Monocytes % 3.4 %; Neutrophils % 73.8 %; Nucleated Red Blood Cells % 0.2 %; Platelet Count 80 10^3/cmm (130-400); Red Blood Count 3.54 10^6/uL (4.1-5.3); Red Cell Distribution Width 17.9 % (12.1-15.1)
[2020-05-30 04:59] LABS: ABG PCO2 40.3 mmHg (35-45); ABG PH Result 7.36 (7.35-7.45); Arterial Blood Gas Hematocrit 34.8 % (37-47); Base Excess ABG -2.7 mmol/L (-2.0-2.0); Blood Gas Sample Site Brachial, right; Blood Gas Sample Type Arterial; HCO3 ABG 22.6 mmol/L (22-26); Oxygen Device VENT
[2020-05-30 05:04] LABS: Alanine Aminotransferase 10 U/L (0-33); Albumin Level 2.2 g/dL (3.5-5.2); Alkaline Phosphatase 133 IU/L (35-105); Anion Gap 14.5 (5-19); Aspartate Amino Transferase 14 U/L (0-32); Blood Urea Nitrogen 27 mg/dL (8-23); Calcium 7.8 mg/dL (8.5-10.5); Carbon Dioxide 23 mmol/L (22-29); Chloride 101 mmol/L (98-107); Globulin 2.8 g/dL (1.3-4.6); Glucose 83 mg/dL (65-115); Magnesium 1.7 mg/dL (1.7-2.3); Osmolality Calculated 276 mOsm/kg (285-295); Phosphorus 4.2 mg/dL (2.5-4.5); Potassium 3.5 mmol/L (3.5-5.1); Sodium 135 mmol/L (136-145); Total Bilirubin 0.6 mg/dL (0.15-1.2)
--- NOTE | 2020-05-30 06:00 | XRR_ITS ---
PROCEDURE INFORMATION: Exam: XR Chest, 1 View Exam date and time: 05/30/2020 6:09 AM Age: 69 years old Clinical indication: Condition or disease; Lung condition and disease; Pulmonary congestion; Additional info: On vent support TECHNIQUE: Imaging protocol: XR of the chest Views: 1 view. COMPARISON: CR XR chest 1V portable [id number] 05/29/2020 5:43 AM FINDINGS: Tubes, catheters and devices: An endotracheal tube is placed with its tip approximately 3 cm from the brynn. EKG leads overlie the chest. Lungs: Some strandy and hazy opacities are also seen in the left lower hemithorax compatible with continuing airspace disease. Pleural space: Unremarkable. No pleural effusion. No pneumothorax. Heart/Mediastinum: Cardiac silhouette is prominent. Vasculature: A right internal jugular vein central venous line is placed with its tip at the level of the superior vena cava. Bones/joints: Unremarkable. XR/XR chest 1V portable [id number] IMPRESSION: 1. Endotracheal tube tip 3 cm from the brynn. 2. Right internal jugular vein central venous line tip at the level of the superior vena cava 3. Increased densities in the retrocardiac region likely represents continuing left basilar airspace disease.
[2020-05-30 06:23] LABS: Glucose Point of Care 75 mg/dL (70-110)
[2020-05-30] MEDS: FUROsemide 100 MG in sodium chloride 0.9% 40 ML IV (07:26)
--- NOTE | 2020-05-30 07:28 | PC.NURSE ---
Furosemide gtt changed, 10mg/hr. Dr yepez. Order changed from 6mg/hr yesterday.
--- NOTE | 2020-05-30 07:57 | PM.PN ---
Subjective Subjective: Interval history: Anasarca persists, total postive fluid balance of 11 L, had 375 mL urine output overnight with a total of 1025 mL x 24 hrs. Improved Hg-10.3, noted thrombocytopenia with platelet count of 80, stable renal function, normal electrolytes. Noted ABG, CXR. Medications: Reviewed: Yes Medication Review Details: Active Medications Generic Name Dose Route Start Last Admin Trade Name Freq PRN Reason Stop Dose Admin Acetaminophen 650 mg 05/26/20 22:03 05/26/20 22:15 Tylenol [place] 650 mg Q6H PRN Administration FEVER Apixaban 2.5 mg 05/25/20 18:00 05/30/20 07:00 Eliquis PO Not Given BID SWATI Aripiprazole 5 mg 05/22/20 18:00 05/30/20 07:01 Abilify PO Not Given BID SWATI Atorvastatin Calci um 40 mg 05/21/20 13:00 05/30/20 07:01 Lipitor PO Not Given DAILY SWATI Collagenase 1 applic 05/24/20 17:00 05/29/20 11:48 Santyl TOPICAL 1 applic DAILY SWATI Administration Dextrose 50 ml 05/21/20 13:50 05/29/20 11:39 D50w IVP 50 ml PRN PRN Administration hypoglycemia prot ocol Protocol Fentanyl 25 mcg 05/26/20 08:32 05/29/20 23:56 Sublimaze IVP 25 mcg Q2H PRN Administration Severe Pain or ag itation Glucagon 1 mg 05/21/20 13:50 Glucagen IM ONCE PRN Adult Acute Hypog lycemia Prot. Protocol Dextrose 500 mls @ 100 mls /hr 05/21/20 13:50 05/25/20 19:46 D5w IV Infused ONCE PRN Infusion Adult Acute Hypog lycemia Prot Protocol Linezolid 600 mg in 300 mls @ 300 mls/hr 05/25/20 14:00 05/28/20 02:07 Zyvox Premix IV 300 mls/hr Q12H SWATI Administration Protocol Albumin Human 12.5 gm in 50 mls @ 60 mls/hr 05/25/20 16:33 Albumin IV PRN PRN Hypotension and/o r symptomatic Albumin Human 12.5 gm in 50 mls @ 60 mls/hr 05/25/20 17:21 Albumin IV PRN PRN Hypotension and/o r symptomatic Norepinephrine Bit artrate 4 mg 254 mls @ 0 mls/h r 05/25/20 20:15 05/27/20 16:00 / Dextrose IV 0 mcg/min .Q0M SWATI 0 mls/hr Titration Protocol Per Protocol Norepinephrine Bit artrate 8 mg 508 mls @ 0 mls/h r 05/26/20 17:30 05/27/20 03:02 / Dextrose IV 6 mcg/min .Q0M SWATI 22.9 mls/hr Administration Protocol Per Protocol Fentanyl 1,000 mcg / Sodium 100 mls @ 0 mls/h r 05/26/20 19:30 05/29/20 23:56 Chloride IV 100 mcg/hr .Q0M SWATI 10 mls/hr Administration Protocol Per Protocol Furosemide 100 mg/ Sodium 50 mls @ 5 mls/hr 05/28/20 08:00 05/30/20 07:26 Chloride IV 10 mg/hr .Q10H SWATI 5 mls/hr Administration Protocol 10 MG/HR Imipenem/Cilastati n Sodium 250 100 mls @ 200 mls /hr 05/28/20 09:00 05/30/20 07:04 mg/ Sodium Chlor migdalia IV Infused Q6H SWATI Infusion Protocol Levofloxacin/Dextr ose 750 mg in 150 mls @ 100 mls/hr 05/28/20 08:45 05/28/20 09:30 Levaquin-D5w IV 100 mls/hr Q48H SWATI Administration Protocol Insulin Aspart 0 unit 05/21/20 18:00 05/30/20 07:05 Novolog SUBCUT Not Given TIDWM [facility] Protocol Lanolin 1 applic 05/30/20 03:06 05/30/20 03:12 Lanolin Oint TOPICAL 1 applic PRN PRN Administration DRYNESS Levothyroxine Sodi um 125 mcg 05/21/20 14:00 05/30/20 07:02 Synthroid PO Not Given DAILY SWATI Levothyroxine Sodi um 100 mcg 05/29/20 10:45 05/29/20 11:40 Synthroid IVP 100 mcg DAILY SWATI Administration Lorazepam 2 mg 05/27/20 08:06 Ativan IVP Q4H PRN ANXIETY Magnesium Hydroxid e 30 ml 05/21/20 12:11 Milk Of Magnesia PO DAILY PRN Constipation Metoprolol Tartrat e 50 mg 05/21/20 18:00 05/30/20 07:02 Lopressor PO Not Given BID SWATI Metoprolol Tartrat e 5 mg 05/26/20 15:47 05/26/20 19:59 Metoprolol Tartr ate IV 5 mg Q4H PRN Administration tachycardia Midazolam HCl 1 mg 05/26/20 08:32 05/30/20 02:59 Versed IVP 1 mg Q2H PRN Administration AGITATION Morphine Sulfate 1 mg 05/25/20 23:43 05/26/20 02:28 Morphine IVP 1 mg Q2H PRN Administration SEVERE PAIN Multivitamins Ther apeutic 1 tab 05/22/20 09:00 05/29/20 09:06 Multivitamin Tab PO Not Given DAILY [facility] Neomycin/Polymyxin /Bacitracin 1 applic 05/21/20 14:33 05/21/20 15:58 Neosporin Oint T ube TOPICAL 1 applic BID PRN Administration with dressing walter nges Ondansetron HCl 4 mg 05/21/20 12:11 05/21/20 16:34 Zofran PO 4 mg TID PRN Administration Nausea Pantoprazole Sodiu m 40 mg 05/28/20 09:00 05/29/20 20:13 Protonix IVP 40 mg Q12H SWATI Administration Senna/Docusate Sod ium 1 tab 05/22/20 09:00 05/30/20 07:03 Senna-S PO Not Given DAILY [facility] Venlafaxine HCl 150 mg 05/23/20 09:00 05/30/20 07:03 Effexor Xr PO Not Given DAILY [facility] clarithromycin Allergy (Unknown, Verified 04/16/20 14:33) Unknown hydrocodone Allergy (Unknown, Verified 04/16/20 14:33) Unknown metformin Allergy (Unknown, Verified 04/16/20 14:33) Unknown sitagliptin [From Januvia] Allergy (Unknown, Verified 04/16/20 14:33) Unknown tetanus and diphtheria toxoids Allergy (Unknown, Verified 04/16/20 14:33) Unknown triamcinolone Allergy (Unknown, Verified 04/16/20 14:33) Unknown Vitals/I&O/Wt Last Vital Signs Temp 98.7 F 05/30/20 04:00 Pulse 117 H 05/30/20 06:00 Resp 9 L 05/30/20 07:24 BP 132/91 05/30/20 06:00 Pulse Ox 100 05/30/20 06:00 05/29/20 05/30/20 05/30/20 22:59 06:59 14:59 Intake Total 229.40 / 435.75 149.55 / 585.30 100 / 100 Output Total 190 / 400 375 / 775 Balance 39.40 / 35.75 -225.45 / -189.70 100 / 100 Weight last 48 hrs Weight 127.006 kg Weight 127.006 kg Physical Exam Const: COMMON NORMALS: no acute distress and alert GENERAL APPEARANCE: ill appearing, Edematous and patient mechanically ventilated NUTRITIONAL APPEARANCE: obese morbidly obese ORIENTATION/CONSCIOUSNESS: Yes confused OTHER: -intermittently restless, minimal sedation with Fentanyl HENMT: COMMON NORMALS: normocephalic and atraumatic HEAD & SCALP: normocephalic and atraumatic MOUTH: moist mucous membranes abnormal Details: parched Eye: COMMON NORMALS: Equal, round and reactive pupils present, EOMs intact bilaterally and conjunctivae normal CONJUNCTIVA: Yes conjunctivae normal PUPIL: Yes Equal, round and reactive pupils present Neck/C-Spine: COMMON NORMALS: full ROM GENERAL: Yes normal visual inspection and Yes trachea midline OTHER: -contracted, leans to the L chronically -temporary dialysis catheter on R Resp: COMMON NORMALS: normal respiratory effort, No retractions and No use of accessory muscles EFFORT & INSPECTION: Yes tachypneic AUSCULTATION: rales and diminished lung sounds OTHER: -on vent support (400/21%/8); ETT-23 cm @ lip. Breathing over vent consistently Cardio: COMMON NORMALS: S1 normal heart sound present, S2 normal heart sound present and No murmurs present (Cardio) RATE: tachycardic RHYTHM: abnormal rhythm irregularly irregular HEART SOUNDS: S1 normal heart sound present and S2 normal heart sound present GI: COMMON NORMALS: Normal to inspection, nondistended, normoactive bowel sounds present and Soft to palpation INSPECTION: Yes central obesity PALPATION: Yes Soft to palpation and Yes Hernia present ventral OTHER: -Unable to gauge tenderness but does not overtly grimace or wince during palpation : BLADDER/KIDNEY EXAM: Yes catheter in place Catheter type (Female): urethral EXTERNAL FEMALE EXAM: Yes Hernia present OTHER: -Right femoral central line Extremity: COMMON NORMALS: normal to inspection, full ROM and no clubbing, cyanosis or edema NARRATIVE EXTREMITY EXAM: -Bed-bound at baseline -Chronic bilateral lower extremity lymphedema GENERAL: Yes edema (1-2+ pitting edema of bilateral LEs; pitting edema of bilateral UEs) Neuro: COMMON NORMALS: moves all extremities, no focal motor deficits, no sensory deficits noted and gait normal SENSORIUM/ORIENTATION: Yes alert OTHER: -baseline tremor of RUE Psych: COMMON NORMALS: mental status grossly normal, Normal thought process present, cooperative, normal affect and speech normal ACTIVITY/MOTOR BEHAVIOR: Yes restless (intermittently) SPEECH: Yes normal speech THOUGHT PROCESS: Normal thought process present OTHER: -low threshold for anxiety Skin: COMMON NORMALS: no jaundice, no petechiae and no mottling NARRATIVE SKIN EXAM: -Scattered bruising -chronic wounds involving L calf, anterior leg, dorsum of foot with some areas of superficial slough but primarily good granulation tissue. -L heel ulcer; bone exposed, slough -weeping edema -chronic stasis dermatitis -excoriation and superficial abrasions in skin folds including inguinal, gluteal area Data : 05/30/20 04:16 05/30/20 04:16 Micro: Microbiology 05/25/20 16:33 Urine Culture - Final Urine,Clean Catch Escherichia coli esbl Pseudomonas aeruginosa 05/24/20 13:20 Urine Culture - Final Urine,Clean Catch Pseudomonas aeruginosa Escherichia coli esbl A&P Assessment and plan (1) Acute kidney injury superimposed on CKD: -Noted to be anuric with worsening renal function -failed trial of IVF and developed fluid overload; repeat fluid challenge showed she is not fluid responsive -has temporary dialysis catheter (R IJ); one session so far -Has had issues in the past with acute renal impairment including during last admission -Continue to monitor urine output; some improvement with lasix drip; has Patino catheter -Avoid nephrotoxins, renally dose meds -Nephrology evaluation appreciated -Baseline creatinine appears to be around 1-1.4 though has been as high as 5.7 in the past. Renal function stable -in light of decreased EF, could be related to low output -renal US: limited -PERRY on CKD stage 3 -UPEP, SPEP both negative; serum immunofixation shows no monoclonal proteins -BRISSA positive, titer 1:1280, speckled pattern; could be autoimmune vs. sepsis related but will need more specific workup for this -on lasix drip Status: Acute (2) Septic shock: -Noted significant leukocytosis, lactic acidosis, with associated acute respiratory failure, acute metabolic encephalopathy, hypotension, acute renal impairment, anuria, fever. Septic shock resolved as no longer febrile, encephalopathy and hypotension resolved -Noted to have decreased ejection fraction of 30-35% on limited echo which is likely contributing to overall clinical decompensation -weaned off pressor support x > 72 hrs -Close monitoring of vital signs -intubated due to continued decompensation and fluid overload (05/25); remains on vent support; weaning trial today -has noted UTI and LLE cellulitis with infected ulcers. Based on cultures, on Primaxin and Levaquin (renally dosed); off Flagyl, Zosyn, and hold Linezolid -repeat blood cx- negative; previous cultures grew VRE Enterococcus faecium -had PICC line in place before, now removed; culture of tip negative -repeat UA shows continued evidence of infection; urine cx-ESBL E. coli, pseudomonas aeruginosa, sensitivity noted; previous cultures grew Joslyn albicans. Has had ESBL before. Isolation precautions -Received 4 doses of albumin; give additional doses as needed -sputum cx-prelim negative; gram stain negative -COVID-19 test negative (05/14) -afebrile x >48 hrs, continue to monitor -will need additional debridement of LLE wounds once more stable per surgery Status: Acute (3) Acute respiratory failure: -intubated due to continued decompensation and fluid overload (05/25); remains on vent support -weaning trial when appropriate, would hold off due to persistent and significant fluid overload -daily CXR, ABG while on vent support -noted evidence of fluid overload on imaging; anuric, requiring emergent dialysis -continued close monitoring of respiratory status -sputum cx-prelim negative; gram stain negative -COVID-19 test negative (05/14) Status: Acute Qualifiers: Respiratory failure complication: unspecified whether with hypoxia or hypercapnia Qualified Code(s): J96.00 - Acute respiratory failure, unspecified whether with hypoxia or hypercapnia (4) Anasarca: -anasarca with total positive fluid balance of 11 L -anuric Status: Acute (5) Acute on chronic anemia: -baseline Hg appears to be 10-11 -required transfusion of 2 units PRBCs during last admission -s/p 2 units of PRBCs; anticipate need for transfusion of blood products; continue to monitor closely; Hg stable currently -continue to monitor for bleeding; none so far -off AC and antiplatelets; may consider starting heparin drip due to atrial fibrillation with stable Hg Status: Acute (6) Stress-induced cardiomyopathy: -limited Echo: EF=30-35%; Echo with contrast shows EF=60-65%, no RWMA Status: Acute (7) CVA (cerebral vascular accident): -CT head: chronic changes -carotid US: <50% bilateral ICA stenosis -off ASA due to GI bleed hx; on statin -initially thought to be appropriate for tPA then not given as patient improved; she was evaluated by Dr. Owusu on admission Status: Acute Qualifiers: CVA mechanism: unspecified Qualified Code(s): I63.9 - Cerebral infarction, unspecified (8) Elevated troponin level: -noted elevated troponins; likely type II due to demand ischemia -Cardiology evaluation appreciated -limited echo as noted above; had echo with contrast as well -previously on AC with Eliquis -will likely need outpatient stress testing Status: Acute (9) Intermittent atrial fibrillation: -tachycardic -telemetry monitoring -continue to monitor vital signs -on AC with Eliquis; held due to anemia -Echo: EF=30-35%; contrast Echo: EF=60-65% -off ASA due to GI bleed hx Status: Acute (10) Acute metabolic encephalopathy: -In light of continued clinical decompensation including development of septic shock -minimal sedation due to vent support but alert and seems to be responding, difficult to gauge mental status otherwise Status: Acute (11) Hypotension: -hemodynamic status stable Status: Resolved Qualifiers: Hypotension type: unspecified hypotension type Qualified Code(s): I95.9 - Hypotension, unspecified (12) UTI (urinary tract infection): -repeat UA shows continued evidence of infection; urine cx-ESBL E. coli, pseudomonas aeruginosa, sensitivity noted; previous cultures grew Joslyn albicans -on IV antibiotics Status: Acute Qualifiers: Urinary tract infection type: acute cystitis Hematuria presence: without hematuria Qualified Code(s): N30.00 - Acute cystitis without hematuria (13) High anion gap metabolic acidosis: -AG closed -continue to monitor Status: Resolved Additional A&P Information -GERD; on PPI -Morbid obesity: BMI-48 kg/m2 though overall has quite poor nutrition status as reflected by hypoalbuminemia which is contributing to lymphedema. -large hiatal hernia -Dyslipidemia; on statin -Chronic pain; on narcotics -Gram positive bacteremia secondary to LE cellulitis and acutely infected LLE wounds which were surgically debrided during last admission and additional bedside debridement on 05/21; blood cx grew VRE Enterococcus faecium. On Zyvox. Blood cx (05/21, 05/25): negative. Wound care with Santyl hydrofera blue; continue to f/u at [facility] on d/c -Peripheral vascular disease; seen by Dr. Alejandre during previous admission, s/p peripheral angiogram with no noted significant vascular compromise noted. -COPD, not oxygen dependent at baseline -Vascular dementia -NIDDM type II; A1c-5.3; Accuchecks, ISS, hypoglycemia precautions particularly as NPO. DM complicated by nephropathy, PVD, neuropathy -Hypothyroidism; on levothyroxine, TSH wnl -Fecal retention; enemas PRN -NPO; unable to place OGT due to hernia -DVT ppx not done as due to bleeding risk is off AC and cannot have SCDs due to LE wounds -Dispo: [facility] -Code status: FULL code -continue ICU care due to critical illness -Very guarded prognosis -challenging family dynamics including wanting transfer then declining it once arranged; indecision despite multiple conversations including [id number] encounters for updates on patient's clinical status Attestations Medical Necessity Statement*: Patient requires hospitalization for continued management of significant fluid overload with clinical anasarca, remains on vent support, continued management of acute renal failure. Time Spent in Patient Care: 16 - 35 minutes (>than 50% of time spent in counselling and/or direct pt care on unit). Critical Care Time: The high probability of a clinically significant, sudden or life threatening deterioration of the patient's [cardiovascular, respiratory] system(s) required my full and direct attention, intervention and personal management. The critical care time is as shown. This time is in addition to time spent performing any reported procedures but includes the following: [x] Data and vital sign review and interpretation [x] Patient assessment, examination and intervention [x] Documentation [x] Medication orders and management Critical Care Time (min): 20 Coding Level of Care Code Acute Database Software Technician for Darek Ojeda Diagnoses Acute kidney injury superimposed on CKD N17.9; N18.9 Septic shock A41.9; R65.21 Acute respiratory failure J96.00 Respiratory failure complication: unspecified whether with hypoxia or hypercapnia Anasarca R60.1 Acute on chronic anemia D64.9 Stress-induced cardiomyopathy I51.81 CVA (cerebral vascular accident) I63.9 CVA mechanism: unspecified Elevated troponin level R79.89 Intermittent atrial fibrillation I48.0 Acute metabolic encephalopathy G93.41 Hypotension I95.9 Hypotension type: unspecified hypotension type UTI (urinary tract infection) N30.00 Urinary tract infection type: acute cystitis Hematuria presence: without hematuria High anion gap metabolic acidosis E87.2
[2020-05-30] MEDS: levofloxacin-dextrose 5 % 750 MG/150 ML PREMIX 100 MG IV (09:26)
[2020-05-30] MEDS: pantoprazole 40 mg SDV IVP ×2 (09:38→20:50)
[2020-05-30] MEDS: levothyroxine 100 mcg SDV IVP (09:38)
[2020-05-30] MEDS: collagenase oint 30 gm 1 APPLIC TOPICAL (10:03)
--- NOTE | 2020-05-30 10:45 | P.PN_ITS ---
Subjective Subjective: Interval history: Remains intubated and vented, FiO2 low at 21%, PEEP of 8. On Lasix at dose of 10mg/hr. Anasarca persists, total positive fluid balance of 11 L, had 375 mL urine output overnight with a total of 1025 mL x 24 hrs. Medications: Reviewed: Yes Medication Review Details: Active Medications Generic Name Dose Route Start Last Admin Trade Name Freq PRN Reason Stop Dose Admin Acetaminophen 650 mg 05/26/20 22:03 05/26/20 22:15 Tylenol [place] 650 mg Q6H PRN Administration FEVER Apixaban 2.5 mg 05/25/20 18:00 05/30/20 07:00 Eliquis PO Not Given BID SWATI Aripiprazole 5 mg 05/22/20 18:00 05/30/20 07:01 Abilify PO Not Given BID SWATI Atorvastatin Calci um 40 mg 05/21/20 13:00 05/30/20 07:01 Lipitor PO Not Given DAILY SWATI Collagenase 1 applic 05/24/20 17:00 05/29/20 11:48 Santyl TOPICAL 1 applic DAILY SWATI Administration Dextrose 50 ml 05/21/20 13:50 05/29/20 11:39 D50w IVP 50 ml PRN PRN Administration hypoglycemia prot ocol Protocol Fentanyl 25 mcg 05/26/20 08:32 05/29/20 23:56 Sublimaze IVP 25 mcg Q2H PRN Administration Severe Pain or ag itation Glucagon 1 mg 05/21/20 13:50 Glucagen IM ONCE PRN Adult Acute Hypog lycemia Prot. Protocol Dextrose 500 mls @ 100 mls /hr 05/21/20 13:50 05/25/20 19:46 D5w IV Infused ONCE PRN Infusion Adult Acute Hypog lycemia Prot Protocol Linezolid 600 mg in 300 mls @ 300 mls/hr 05/25/20 14:00 05/28/20 02:07 Zyvox Premix IV 300 mls/hr Q12H SWATI Administration Protocol Albumin Human 12.5 gm in 50 mls @ 60 mls/hr 05/25/20 16:33 Albumin IV PRN PRN Hypotension and/o r symptomatic Albumin Human 12.5 gm in 50 mls @ 60 mls/hr 05/25/20 17:21 Albumin IV PRN PRN Hypotension and/o r symptomatic Norepinephrine Bit artrate 4 mg 254 mls @ 0 mls/h r 05/25/20 20:15 05/27/20 16:00 / Dextrose IV 0 mcg/min .Q0M SWATI 0 mls/hr Titration Protocol Per Protocol Norepinephrine Bit artrate 8 mg 508 mls @ 0 mls/h r 05/26/20 17:30 05/27/20 03:02 / Dextrose IV 6 mcg/min .Q0M SWATI 22.9 mls/hr Administration Protocol Per Protocol Fentanyl 1,000 mcg / Sodium 100 mls @ 0 mls/h r 05/26/20 19:30 05/29/20 23:56 Chloride IV 100 mcg/hr .Q0M SWATI 10 mls/hr Administration Protocol Per Protocol Furosemide 100 mg/ Sodium 50 mls @ 5 mls/hr 05/28/20 08:00 05/30/20 07:26 Chloride IV 10 mg/hr .Q10H SWATI 5 mls/hr Administration Protocol 10 MG/HR Imipenem/Cilastati n Sodium 250 100 mls @ 200 mls /hr 05/28/20 09:00 05/30/20 07:04 mg/ Sodium Chlor migdalia IV Infused Q6H SWATI Infusion Protocol Levofloxacin/Dextr ose 750 mg in 150 mls @ 100 mls/hr 05/28/20 08:45 05/28/20 09:30 Levaquin-D5w IV 100 mls/hr Q48H SWATI Administration Protocol Insulin Aspart 0 unit 05/21/20 18:00 05/30/20 07:05 Novolog SUBCUT Not Given TIDWM [facility] Protocol Lanolin 1 applic 05/30/20 03:06 05/30/20 03:12 Lanolin Oint TOPICAL 1 applic PRN PRN Administration DRYNESS Levothyroxine Sodi um 125 mcg 05/21/20 14:00 05/30/20 07:02 Synthroid PO Not Given DAILY SWATI Levothyroxine Sodi um 100 mcg 05/29/20 10:45 05/29/20 11:40 Synthroid IVP 100 mcg DAILY SWATI Administration Lorazepam 2 mg 05/27/20 08:06 Ativan IVP Q4H PRN ANXIETY Magnesium Hydroxid e 30 ml 05/21/20 12:11 Milk Of Magnesia PO DAILY PRN Constipation Metoprolol Tartrat e 50 mg 05/21/20 18:00 05/30/20 07:02 Lopressor PO Not Given BID SWATI Metoprolol Tartrat e 5 mg 05/26/20 15:47 05/26/20 19:59 Metoprolol Tartr ate IV 5 mg Q4H PRN Administration tachycardia Midazolam HCl 1 mg 05/26/20 08:32 05/30/20 02:59 Versed IVP 1 mg Q2H PRN Administration AGITATION Morphine Sulfate 1 mg 05/25/20 23:43 05/26/20 02:28 Morphine IVP 1 mg Q2H PRN Administration SEVERE PAIN Multivitamins Ther apeutic 1 tab 05/22/20 09:00 05/29/20 09:06 Multivitamin Tab PO Not Given DAILY [facility] Neomycin/Polymyxin /Bacitracin 1 applic 05/21/20 14:33 05/21/20 15:58 Neosporin Oint T ube TOPICAL 1 applic BID PRN Administration with dressing waletr nges Ondansetron HCl 4 mg 05/21/20 12:11 05/21/20 16:34 Zofran PO 4 mg TID PRN Administration Nausea Pantoprazole Sodiu m 40 mg 05/28/20 09:00 05/29/20 20:13 Protonix IVP 40 mg Q12H SWATI Administration Senna/Docusate Sod ium 1 tab 05/22/20 09:00 05/30/20 07:03 Senna-S PO Not Given DAILY [facility] Venlafaxine HCl 150 mg 05/23/20 09:00 05/30/20 07:03 Effexor Xr PO Not Given DAILY [facility] clarithromycin Allergy (Unknown, Verified 04/16/20 14:33) Unknown hydrocodone Allergy (Unknown, Verified 04/16/20 14:33) Unknown metformin Allergy (Unknown, Verified 04/16/20 14:33) Unknown sitagliptin [From Januvia] Allergy (Unknown, Verified 04/16/20 14:33) Unknown tetanus and diphtheria toxoids Allergy (Unknown, Verified 04/16/20 14:33) Unknown triamcinolone Allergy (Unknown, Verified 04/16/20 14:33) Unknown Vitals/I&O/Wt Last Vital Signs Temp 98.1 F 05/30/20 07:30 Pulse 127 H 05/30/20 08:00 Resp 12 05/30/20 10:07 BP 133/103 05/30/20 08:00 Pulse Ox 98 05/30/20 09:20 05/29/20 05/30/20 05/30/20 22:59 06:59 14:59 Intake Total 229.40 / 435.75 149.55 / 585.30 194 / 194 Output Total 190 / 400 375 / 775 Balance 39.40 / 35.75 -225.45 / -189.70 194 / 194 Weight last 48 hrs Weight 127.006 kg Weight 127.006 kg Physical Exam Narrative: EXAM NARRATIVE: exam performed by RN as telemedicine visit -intubated, sedtaed, off of pressors, responds to pain vent AC/tv 300/ fio2=21%, PEEP 8. rr 12 remains in afib w/HR 100 heent- nc/at, eomi, anicteric lungs wheezes b/l heart irreg irreg, +YANDY abd soft, + bs, nt ext legs swollen w/ lesions on left leg- q ulcer neuro- sedated, moving more swollen Data : 05/30/20 04:16 05/30/20 04:16 Micro: Microbiology 05/25/20 16:33 Urine Culture - Final Urine,Clean Catch Escherichia coli esbl Pseudomonas aeruginosa 05/24/20 13:20 Urine Culture - Final Urine,Clean Catch Pseudomonas aeruginosa Escherichia coli esbl A&P Additional A&P Information 1. PERRY - likely infection mediated ATN - Diff includes Lupus but much less likely given patient demographic; will send UPCR and C3/C4 > if she is nephrotic and complements are depressed will give empirical steroids - creatinine remains stable - gross anasarca still problematic - will bump Lasix gtt to 20mg/hr and give Diamox x 1 (this is the only other iv drug we have to use) - possible enteral options inc metolazone if we can get a Dobhoff placed - Leave line while ultrafiltration still on the table - dose meds for eGFR < 30 - avoid the usuals - strict Is and Os 2. VDRF - weaning as tolerated - doing well on SBTs 3. Sepsis - Ecoli and pseudomonas - remains on Primaxin 4. Nutrition - ? EGD for Dobhoff placement, d/w Dr Mcpherson as a possible option - alternatively, if she fails diuretic therapy and needs UF, TPN becomes an option as we can manage her volumes better 5. Lytes look well balanced Exam performed by Telemed with assistance of bedside RN Attestations Medical Necessity Statement*: Eval for PERRY Coding Level of Care Code Acute School Director for Darek Ojeda
--- NOTE | 2020-05-30 11:55 | PC.NURSE ---
Pt crying and pounding her right hand on bed. Pt nodded her head to pain. This nurse names different body areas to locate pain source , pt nodded head yes to heart. When asked if it was physical pain, pt nodded her head no. Pt nodded her head to being tired. When asked what she was tired about, through questions and nods pt indicated she was tired of being in the hospital, treatment and wanting to go 'home . Pt also nodded yes to seeing a latexer, latexer services notified. Apple Thinner at bedside
[2020-05-30 12:03] LABS: Complement C3 77 mg/dL (90-180)
--- NOTE | 2020-05-30 12:08 | PC.CHAP ---
Pastoral Care Encounter/Spiritual Assessment Type of Contact [] Declined fermentation engineer visit [XX] Patient/Family/Request visit [] Outpatient visit [] Follow-up visit [] Physician referral [] Code/Alert [] Routine visit [] Staff referral [] Actively dying [] Patient sleeping [] Family support [] [] Out of room [] Palliative care [] [] Receiving care in room [] Pre-surgical visit [] Trauma [] Long length of stay [] ICU visit [] Other: Relational/Emotional Strength [] Patient feels connected with others/family/visitors/staff [] Distress [] Loneliness/isolation [] Abandonment Spirituality of Patient [XX] Person of Kaila [] Attends Confucianism of their Kaila [XX] Believes in Prayer [] Reads Bible or Church materials [] There are Spiritual issues to be addressed Bi Developer Interventions [XX] Prayer [] Active listening [] Non-anxious presence [] Spiritual/emotional support [] Crisis/trauma care [] Spiritual counseling [] Bereavement support [] Provided bereavement packet [] Provided Bible/devotional materials [] Provided toy/stuffed animal, coloring book to patient or family member [] Provided Communion [] Anointing/[place] [] Salvation [] Completed spiritual assessment [] Other: Impact on Illness or Injury [] Angry [] Fearful [] Anxious [] Often cries [] Exhaustion [] Unable to work [] Unable to attend scientology [] Unable to walk/stand [] Unable to read [] Unable to drive [] Unable to eat/drink [] Unable to sleep [] Unable to be with family [] Patient intubated [] Other: Summary: Pt indicated request for fermentation engineer visit. Pt is intubated but awake and seems to be cognitively present. This is a difficult case. Per nursing staff, the pt did not want sustained life extending measures, but her son is her power of corporate associate attorney/medical proxy. He is insisting on all measures. He also has a grievance against the hospital. Today's nurse was very upset (crying) that pt is being treated this way and wonders if Ethics should become involved. I also offered Pastoral Care assessment with the son/family members. It is unknown, at least to the nurse, where he is coming from, and I suggested that it may be helpful to learn that information because then his concerns and questions could be addressed. Pt tried to write but was unable to do so. I offered prayer, as best I could for the situation and all involved. Time spent with patient: 20 mins
[2020-05-30 12:20] LABS: Urine Creatinine 97 mg/dL (28-217)
[2020-05-30 12:33] LABS: UPRO/UCREAT Ratio 0.32 mg/mg CR; Urine Protein Random 31 mg/dL
[2020-05-30] MEDS: FUROsemide 100 MG in sodium chloride 0.9% 40 ML 10 MG IV ×2 (14:23→20:51)
[2020-05-30] MEDS: LORazepam 2 mg/mL INJ 1 mL IVP (17:27)
[2020-05-30 17:45] LABS: Glucose Point of Care 78 mg/dL (70-110)
[2020-05-30 17:45] LABS: Glucose Point of Care 90 mg/dL (70-110)
--- NOTE | 2020-05-30 19:17 | PC.NURSE ---
Called Hugo Emery to update him on his mother's lack of progress. Spoke about her raw macerated skin, poor urine output, fluid status, her advance directive choices. He stated he was going to come in tomorrow at [address] Dr about her care w, whether to continue or start withdrawing care.
--- NOTE | 2020-05-30 19:44 | PC.NURSE ---
Addendum entered by Elenita Duron RN 05/30/20 19:51: More areas of weeping edema noted. Original Note: Shift summary: Pt alert today. She was crying, agitated, not wanting to do this anymore. Flight Director came to visitor her, she settled down afterwards. Lasix gtt increased to 20mg/hr and Diamox given today, Urine output worsened, 290ml with sediment. Her skin is more macerated on her bottom and now some along her left side to axilla, Even with frequent repositioning, cleansing and a fan blowing . Left heel still has eschar and purulent drainage.
[2020-05-31] VITALS (50 sets, daily range): BP systolic 86–144; BP diastolic 57–92; PULSE 87–123; RESP 1–12; TEMP 36.1–36.6; O2SAT 90–100
--- NOTE | 2020-05-31 00:24 | PC.NURSE ---
Patients' upper extremities have extreme weeping, new absorbent pads placed.
[2020-05-31] MEDS: LORazepam 2 mg/mL INJ 1 mL IVP ×2 (00:46→22:55)
[2020-05-31] MEDS: FUROsemide 200 MG in sodium chloride 0.9% (100 ml) 80 ML 10 MG IV (01:58)
[2020-05-31 04:45] LABS: Basophils % 0.3 %; Eosinophils # 0.6 10^3/uL (0.0-0.8); Eosinophils % 5.1 %; Hematocrit 31.5 % (37.0-47.0); Hemoglobin 9.9 g/dL (11.5-15.3); Lymphocytes # 1.8 10^3/uL (0.8-4.8); Lymphocytes % 16.6 %; Mean Corpuscular HGB Conc 31.4 g/dL (30.0-36.0); Mean Corpuscular Hemoglobin 29.4 pg (28.0-34.0); Mean Corpuscular Volume 93.5 fL (81-99); Mean Platelet Volume 10.8 fL (7.4-10.4); Monocytes # 0.5 10^3/uL (0.2-0.9); Monocytes % 4.3 %; Neutrophils # 7.92 10^3/uL (1.8-7.7); Neutrophils % 73.2 %; Nucleated Red Blood Cells % 0 %; Platelet Count 63 10^3/cmm (130-400); Red Blood Count 3.37 10^6/uL (4.1-5.3); Red Cell Distribution Width 18.2 % (12.1-15.1); White Blood Count 10.8 10^3/uL (4.0-10.0)
[2020-05-31 05:10] LABS: Alanine Aminotransferase < 5 U/L (0-33); Albumin Level 2.1 g/dL (3.5-5.2); Alkaline Phosphatase 166 IU/L (35-105); Anion Gap 15.5 (5-19); Aspartate Amino Transferase 14 U/L (0-32); Blood Urea Nitrogen 29 mg/dL (8-23); Calcium 8.3 mg/dL (8.5-10.5); Carbon Dioxide 22 mmol/L (22-29); Chloride 103 mmol/L (98-107); Globulin 2.6 g/dL (1.3-4.6); Glucose 80 mg/dL (65-115); Magnesium 1.7 mg/dL (1.7-2.3); Osmolality Calculated 280 mOsm/kg (285-295); Phosphorus 4.4 mg/dL (2.5-4.5); Potassium 3.5 mmol/L (3.5-5.1); Sodium 137 mmol/L (136-145); Total Bilirubin 0.6 mg/dL (0.15-1.2); Total Protein 4.7 g/dL (6.6-8.7)
[2020-05-31] MEDS: dextrose 50% syringe 50 mL IVP (07:09)
--- NOTE | 2020-05-31 07:10 | P.PN_ITS ---
Subjective Subjective: Interval history: seen and examined. remains sedated on vent Medications: Reviewed: Yes Medication Review Details: Current Medications Acetaminophen (Tylenol) 650 mg VT Q6H PRN PRN Reason: FEVER Last Admin: 05/26/20 22:15 Dose: 650 mg Documented by: Apixaban (Eliquis) 2.5 mg PO BID [facility] Last Admin: 05/30/20 17:03 Dose: Not Given Documented by: Aripiprazole (Abilify) 5 mg PO BID [facility] Last Admin: 05/30/20 17:19 Dose: Not Given Documented by: Atorvastatin Calcium (Lipitor) 40 mg PO DAILY [facility] Last Admin: 05/30/20 07:01 Dose: Not Given Documented by: Collagenase (Santyl) 1 applic TOPICAL DAILY [facility] Last Admin: 05/30/20 10:03 Dose: 1 applic Documented by: Fentanyl (Sublimaze) 25 mcg IVP Q2H PRN PRN Reason: Severe Pain or agitation Last Admin: 05/29/20 23:56 Dose: 25 mcg Documented by: Glucagon (Glucagen) 1 mg IM ONCE PRN; Protocol PRN Reason: Adult Acute Hypoglycemia Prot. Dextrose (D5w) 500 mls @ 100 mls/hr IV ONCE PRN; Protocol PRN Reason: Adult Acute Hypoglycemia Prot Last Infusion: 05/25/20 19:46 Dose: Infused Documented by: Linezolid (Zyvox Premix) 600 mg in 300 mls @ 300 mls/hr IV Q12H [facility]; Protocol Last Admin: 05/28/20 02:07 Dose: 300 mls/hr Documented by: Albumin Human (Albumin) 12.5 gm in 50 mls @ 60 mls/hr IV PRN PRN PRN Reason: Hypotension and/or symptomatic Norepinephrine Bitartrate 4 mg (/ Dextrose) 254 mls @ 0 mls/hr IV .Q0M [facility]; Protocol Last Titration: 05/27/20 16:00 Dose: 0 mcg/min, 0 mls/hr Documented by: Norepinephrine Bitartrate 8 mg (/ Dextrose) 508 mls @ 0 mls/hr IV .Q0M [facility]; Protocol Last Titration: 05/28/20 18:45 Dose: Infused Documented by: Fentanyl 1,000 mcg/ Sodium (Chloride) 100 mls @ 0 mls/hr IV .Q0M [facility]; Protocol Last Admin: 05/31/20 03:59 Dose: 100 mcg/hr, 10 mls/hr Documented by: Furosemide 100 mg/ Sodium (Chloride) 50 mls @ 10 mls/hr IV .Q5H [facility]; Protocol Last Admin: 05/30/20 20:51 Dose: 20 mg/hr, 10 mls/hr Documented by: Imipenem/Cilastatin Sodium 250 (mg/ Sodium Chloride) 100 mls @ 200 mls/hr IV Q6H [facility]; Protocol Last Admin: 05/31/20 03:58 Dose: 200 mls/hr Documented by: Levofloxacin/Dextrose (Levaquin-D5w) 750 mg in 150 mls @ 100 mls/hr IV Q48H [facility]; Protocol Last Infusion: 05/30/20 11:00 Dose: Infused Documented by: Furosemide 200 mg/ Sodium (Chloride) 100 mls @ 10 mls/hr IV .Q10H [facility]; Protocol Last Admin: 05/31/20 01:58 Dose: 20 mg/hr, 10 mls/hr Documented by: Insulin Aspart (Novolog) 0 unit SUBCUT TIDWM [facility]; Protocol Last Admin: 05/30/20 17:44 Dose: Not Given Documented by: Lanolin (Lanolin Oint) 1 applic TOPICAL PRN PRN PRN Reason: DRYNESS Last Admin: 05/30/20 03:12 Dose: 1 applic Documented by: Levothyroxine Sodium (Synthroid) 125 mcg PO DAILY [facility] Last Admin: 05/30/20 07:02 Dose: Not Given Documented by: Levothyroxine Sodium (Synthroid) 100 mcg IVP DAILY [facility] Last Admin: 05/30/20 09:38 Dose: 100 mcg Documented by: Lorazepam (Ativan) 2 mg IVP Q4H PRN PRN Reason: ANXIETY Last Admin: 05/31/20 00:46 Dose: 2 mg Documented by: Magnesium Hydroxide (Milk Of Magnesia) 30 ml PO DAILY PRN PRN Reason: Constipation Metoprolol Tartrate (Lopressor) 50 mg PO BID [facility] Last Admin: 05/30/20 17:20 Dose: Not Given Documented by: Metoprolol Tartrate (Metoprolol Tartrate) 5 mg IV Q4H PRN PRN Reason: tachycardia Last Admin: 05/26/20 19:59 Dose: 5 mg Documented by: Midazolam HCl (Versed) 1 mg IVP Q2H PRN PRN Reason: AGITATION Last Admin: 05/30/20 02:59 Dose: 1 mg Documented by: Morphine Sulfate (Morphine) 1 mg IVP Q2H PRN PRN Reason: SEVERE PAIN Last Admin: 05/26/20 02:28 Dose: 1 mg Documented by: Multivitamins Therapeutic (Multivitamin Tab) 1 tab PO DAILY [facility] Last Admin: 05/30/20 09:03 Dose: Not Given Documented by: Neomycin/Polymyxin/Bacitracin (Neosporin Oint Tube) 1 applic TOPICAL BID PRN PRN Reason: with dressing changes Last Admin: 05/21/20 15:58 Dose: 1 applic Documented by: Ondansetron HCl (Zofran) 4 mg PO TID PRN PRN Reason: Nausea Last Admin: 05/21/20 16:34 Dose: 4 mg Documented by: Pantoprazole Sodium (Protonix) 40 mg IVP Q12H [facility] Last Admin: 05/30/20 20:50 Dose: 40 mg Documented by: Senna/Docusate Sodium (Senna-S) 1 tab PO DAILY [facility] Last Admin: 05/30/20 07:03 Dose: Not Given Documented by: Venlafaxine HCl (Effexor Xr) 150 mg PO DAILY [facility] Last Admin: 05/30/20 07:03 Dose: Not Given Documented by: Vitals/I&O/Wt Last Vital Signs Temp 97.8 F 05/31/20 04:00 Pulse 105 H 05/31/20 06:00 Resp 10 L 05/31/20 02:22 BP 120/69 05/31/20 06:00 Pulse Ox 96 05/31/20 06:00 05/30/20 05/31/20 05/31/20 22:59 06:59 14:59 Intake Total 350 / 844.000 71.333 / 915.333 Output Total 250 / 390 200 / 590 Balance 100 / 454.000 -128.667 / 325.333 Weight last 48 hrs Weight 126.099 kg Weight 127.006 kg Physical Exam Narrative: EXAM NARRATIVE: exam performed by RN as telemedicine visit -intubated, sedtaed, off of pressors, responds to pain vent AC/tv 300/ fio2=21%, PEEP 8. rr 8 remains in afib w/HR 100 -130 heent- nc/at, eomi, anicteric lungs -poor air movement nd crackles b/l heart irreg irreg, +YANDY abd soft, + bs, nt ext legs swollen w/ lesions on left leg- edema is worsening neuro- sedated, moving more swollen Data : 05/31/20 00:41 05/31/20 00:41 Micro: Microbiology 05/25/20 18:15 Blood Culture - Final Blood NO GROWTH AFTER 5 DAYS 05/25/20 18:20 Blood Culture - Final Blood NO GROWTH AFTER 5 DAYS A&P Additional A&P Information 1. PERRY - likely infection mediated ATN - Diff includes Lupus but less likely. -normal C3/C4. will discuss w/ medicine possibility of steroids - creatinine rising, oliguric on high dose lasix drip. -will stop lasix and start daily SUF - dose meds for eGFR < 30 - avoid nephrotoxins -check anc and anti gbm - strict Is and Os 2. VDRF - weaning as tolerated - monitor w/ suf 3. Sepsis - Ecoli and pseudomonas - remains on Primaxin 4. Nutrition - q NGT or tpn 5.leg wounds per medicine and surgery 6. fib w/ RVR as per cardiology 7. anemia- hgb improved after prbc tx Exam performed by Telemed with assistance of bedside RN Attestations Medical Necessity Statement*: perry, vdrf, afib Time Spent in Patient Care: Greater than 35 minutes Coding Level of Care Code Acute Shot Blaster for Darek Ojeda
--- NOTE | 2020-05-31 07:55 | PM.PN ---
Subjective Subjective: Interval history: Remains anasarcic with total positive fluid balance of 12 L, had 300 mL urine output overnight for a total of 965 mL x 24 hrs. Afebrile, hemodynamically stable, remains on vent support with FiO2 of 21%, minimal sedation with fentanyl drip. Stable leukocytosis, hemoglobin of 9.9, slight increase in creatinine to 2.5, plan for dialysis today per nephrology. Noted to be hypoglycemic this AM, got amp of D50. Continues to be thrombocytopenic with platelet count of 63 today. Medications: Reviewed: Yes Medication Review Details: Active Medications Generic Name Dose Route Start Last Admin Trade Name Freq PRN Reason Stop Dose Admin Acetaminophen 650 mg 05/26/20 22:03 05/26/20 22:15 Tylenol MA 650 mg Q6H PRN Administration FEVER Apixaban 2.5 mg 05/25/20 18:00 05/30/20 17:03 Eliquis PO Not Given BID SWATI Aripiprazole 5 mg 05/22/20 18:00 05/30/20 17:19 Abilify PO Not Given BID SWATI Atorvastatin Calci um 40 mg 05/21/20 13:00 05/30/20 07:01 Lipitor PO Not Given DAILY SWATI Collagenase 1 applic 05/24/20 17:00 05/30/20 10:03 Santyl TOPICAL 1 applic DAILY SWATI Administration Fentanyl 25 mcg 05/26/20 08:32 05/29/20 23:56 Sublimaze IVP 25 mcg Q2H PRN Administration Severe Pain or ag itation Glucagon 1 mg 05/21/20 13:50 Glucagen IM ONCE PRN Adult Acute Hypog lycemia Prot. Protocol Dextrose 500 mls @ 100 mls /hr 05/21/20 13:50 05/25/20 19:46 D5w IV Infused ONCE PRN Infusion Adult Acute Hypog lycemia Prot Protocol Linezolid 600 mg in 300 mls @ 300 mls/hr 05/25/20 14:00 05/28/20 02:07 Zyvox Premix IV 300 mls/hr Q12H SWATI Administration Protocol Albumin Human 12.5 gm in 50 mls @ 60 mls/hr 05/25/20 17:21 Albumin IV PRN PRN Hypotension and/o r symptomatic Norepinephrine Bit artrate 4 mg 254 mls @ 0 mls/h r 05/25/20 20:15 05/27/20 16:00 / Dextrose IV 0 mcg/min .Q0M SWATI 0 mls/hr Titration Protocol Per Protocol Norepinephrine Bit artrate 8 mg 508 mls @ 0 mls/h r 05/26/20 17:30 05/28/20 18:45 / Dextrose IV Infused .Q0M SWATI Titration Protocol Per Protocol Fentanyl 1,000 mcg / Sodium 100 mls @ 0 mls/h r 05/26/20 19:30 05/31/20 03:59 Chloride IV 100 mcg/hr .Q0M SWATI 10 mls/hr Administration Protocol Per Protocol Furosemide 100 mg/ Sodium 50 mls @ 10 mls/h r 05/28/20 08:00 05/30/20 20:51 Chloride IV 20 mg/hr .Q5H SWATI 10 mls/hr Administration Protocol 20 MG/HR Imipenem/Cilastati n Sodium 250 100 mls @ 200 mls /hr 05/28/20 09:00 05/31/20 03:58 mg/ Sodium Chlor migdalia IV 200 mls/hr Q6H SWATI Administration Protocol Levofloxacin/Dextr ose 750 mg in 150 mls @ 100 mls/hr 05/28/20 08:45 05/30/20 11:00 Levaquin-D5w IV Infused Q48H SWATI Infusion Protocol Furosemide 200 mg/ Sodium 100 mls @ 10 mls/ hr 05/30/20 22:45 05/31/20 01:58 Chloride IV 20 mg/hr .Q10H SWATI 10 mls/hr Administration Protocol 20 MG/HR Insulin Aspart 0 unit 05/21/20 18:00 05/30/20 17:44 Novolog SUBCUT Not Given TIDWM SWATI Protocol Lanolin 1 applic 05/30/20 03:06 05/30/20 03:12 Lanolin Oint TOPICAL 1 applic PRN PRN Administration DRYNESS Levothyroxine Sodi um 125 mcg 05/21/20 14:00 05/30/20 07:02 Synthroid PO Not Given DAILY SWATI Levothyroxine Sodi um 100 mcg 05/29/20 10:45 05/30/20 09:38 Synthroid IVP 100 mcg DAILY SWATI Administration Lorazepam 2 mg 05/27/20 08:06 05/31/20 00:46 Ativan IVP 2 mg Q4H PRN Administration ANXIETY Magnesium Hydroxid e 30 ml 05/21/20 12:11 Milk Of Magnesia PO DAILY PRN Constipation Metoprolol Tartrat e 50 mg 05/21/20 18:00 05/30/20 17:20 Lopressor PO Not Given BID SWATI Metoprolol Tartrat e 5 mg 05/26/20 15:47 05/26/20 19:59 Metoprolol Tartr ate IV 5 mg Q4H PRN Administration tachycardia Midazolam HCl 1 mg 05/26/20 08:32 05/30/20 02:59 Versed IVP 1 mg Q2H PRN Administration AGITATION Morphine Sulfate 1 mg 05/25/20 23:43 05/26/20 02:28 Morphine IVP 1 mg Q2H PRN Administration SEVERE PAIN Multivitamins Ther apeutic 1 tab 05/22/20 09:00 05/30/20 09:03 Multivitamin Tab PO Not Given DAILY [facility] Neomycin/Polymyxin /Bacitracin 1 applic 05/21/20 14:33 05/21/20 15:58 Neosporin Oint T ube TOPICAL 1 applic BID PRN Administration with dressing walter nges Ondansetron HCl 4 mg 05/21/20 12:11 05/21/20 16:34 Zofran PO 4 mg TID PRN Administration Nausea Pantoprazole Sodiu m 40 mg 05/28/20 09:00 05/30/20 20:50 Protonix IVP 40 mg Q12H SWATI Administration Senna/Docusate Sod ium 1 tab 05/22/20 09:00 05/30/20 07:03 Senna-S PO Not Given DAILY [facility] Venlafaxine HCl 150 mg 05/23/20 09:00 05/30/20 07:03 Effexor Xr PO Not Given DAILY [facility] clarithromycin Allergy (Unknown, Verified 04/16/20 14:33) Unknown hydrocodone Allergy (Unknown, Verified 04/16/20 14:33) Unknown metformin Allergy (Unknown, Verified 04/16/20 14:33) Unknown sitagliptin [From Januvia] Allergy (Unknown, Verified 04/16/20 14:33) Unknown tetanus and diphtheria toxoids Allergy (Unknown, Verified 04/16/20 14:33) Unknown triamcinolone Allergy (Unknown, Verified 04/16/20 14:33) Unknown Vitals/I&O/Wt Last Vital Signs Temp 97.8 F 05/31/20 04:00 Pulse 105 H 05/31/20 06:00 Resp 10 L 05/31/20 02:22 BP 120/69 05/31/20 06:00 Pulse Ox 96 05/31/20 06:00 05/30/20 05/31/20 05/31/20 22:59 06:59 14:59 Intake Total 350 / 844.000 71.333 / 915.333 Output Total 250 / 390 200 / 590 Balance 100 / 454.000 -128.667 / 325.333 Weight last 48 hrs Weight 126.099 kg Weight 127.006 kg Physical Exam Const: COMMON NORMALS: no acute distress and alert GENERAL APPEARANCE: ill appearing, Edematous and patient mechanically ventilated NUTRITIONAL APPEARANCE: obese morbidly obese ORIENTATION/CONSCIOUSNESS: Yes confused OTHER: -intermittently restless, minimal sedation with Fentanyl HENMT: COMMON NORMALS: normocephalic and atraumatic HEAD & SCALP: normocephalic and atraumatic MOUTH: moist mucous membranes abnormal Details: parched Eye: COMMON NORMALS: Equal, round and reactive pupils present, EOMs intact bilaterally and conjunctivae normal CONJUNCTIVA: Yes conjunctivae normal PUPIL: Yes Equal, round and reactive pupils present Neck/C-Spine: COMMON NORMALS: full ROM GENERAL: Yes normal visual inspection and Yes trachea midline OTHER: -contracted, leans to the L chronically -temporary dialysis catheter on R Resp: COMMON NORMALS: normal respiratory effort, No retractions and No use of accessory muscles AUSCULTATION: diminished lung sounds OTHER: -on vent support (400/21%/8); ETT-23 cm @ lip. Breathing over vent consistently -symmetrical air entry bilaterally Cardio: COMMON NORMALS: S1 normal heart sound present, S2 normal heart sound present and No murmurs present (Cardio) RATE: tachycardic RHYTHM: abnormal rhythm irregularly irregular HEART SOUNDS: S1 normal heart sound present and S2 normal heart sound present GI: COMMON NORMALS: Normal to inspection, nondistended, normoactive bowel sounds present and Soft to palpation INSPECTION: Yes central obesity PALPATION: Yes Soft to palpation and Yes Hernia present ventral OTHER: -Unable to gauge tenderness but does not overtly grimace or wince during palpation : BLADDER/KIDNEY EXAM: Yes catheter in place Catheter type (Female): urethral EXTERNAL FEMALE EXAM: Yes Hernia present OTHER: -Right femoral central line Extremity: COMMON NORMALS: normal to inspection, full ROM and no clubbing, cyanosis or edema NARRATIVE EXTREMITY EXAM: -Bed-bound at baseline -Chronic bilateral lower extremity lymphedema GENERAL: Yes edema (2+ pitting edema of all extremities, weeping) Neuro: COMMON NORMALS: moves all extremities, no focal motor deficits, no sensory deficits noted and gait normal SENSORIUM/ORIENTATION: Yes alert OTHER: -baseline tremor of RUE Psych: COMMON NORMALS: mental status grossly normal, Normal thought process present, cooperative, normal affect and speech normal ACTIVITY/MOTOR BEHAVIOR: Yes restless (intermittently) SPEECH: Yes normal speech THOUGHT PROCESS: Normal thought process present OTHER: -low threshold for anxiety Skin: COMMON NORMALS: no jaundice, no petechiae and no mottling NARRATIVE SKIN EXAM: -Scattered bruising -chronic wounds involving L calf, anterior leg, dorsum of foot with some areas of superficial slough but primarily good granulation tissue. -L heel ulcer; bone exposed, slough -weeping edema -chronic stasis dermatitis -excoriation and superficial abrasions in skin folds including inguinal, gluteal area Data : 05/31/20 00:41 05/31/20 00:41 Micro: Microbiology 05/25/20 18:15 Blood Culture - Final Blood NO GROWTH AFTER 5 DAYS 05/25/20 18:20 Blood Culture - Final Blood NO GROWTH AFTER 5 DAYS A&P Assessment and plan (1) Acute kidney injury superimposed on CKD: -Noted to be anuric with worsening renal function -failed trial of IVF and developed fluid overload; repeat fluid challenge showed she is not fluid responsive -has temporary dialysis catheter (R IJ); one session so far -Has had issues in the past with acute renal impairment including during last admission -Continue to monitor urine output; some improvement with lasix drip; has Patino catheter -Avoid nephrotoxins, renally dose meds -Nephrology evaluation appreciated -Baseline creatinine appears to be around 1-1.4 though has been as high as 5.7 in the past. Renal function stable -in light of decreased EF, could be related to low output -renal US: limited -PERRY on CKD stage 3 -UPEP, SPEP both negative; serum immunofixation shows no monoclonal proteins. Complements wnl, pending ANCA -BRISSA positive, titer 1:1280, speckled pattern; could be autoimmune vs. sepsis related but will need more specific workup for this -d/c lasix drip and will have dialysis today; received dose of acetazolamide with minimal response Status: Acute (2) Septic shock: -Noted significant leukocytosis, lactic acidosis, with associated acute respiratory failure, acute metabolic encephalopathy, hypotension, acute renal impairment, anuria, fever. Septic shock resolved as no longer febrile, encephalopathy and hypotension resolved -Noted to have decreased ejection fraction of 30-35% on limited echo which is likely contributing to overall clinical decompensation -off pressor support x > 72 hrs -Close monitoring of vital signs -intubated due to continued decompensation and fluid overload (05/25); remains on vent support; weaning trial today -has noted UTI and LLE cellulitis with infected ulcers. Based on cultures, on Primaxin and Levaquin (renally dosed); off Flagyl, Zosyn, and Linezolid -repeat blood cx- negative; previous cultures grew VRE Enterococcus faecium -had PICC line in place before, now removed; culture of tip negative -repeat UA shows continued evidence of infection; urine cx-ESBL E. coli, pseudomonas aeruginosa, sensitivity noted; previous cultures grew Joslyn albicans. Has had ESBL before. Isolation precautions -Received 4 doses of albumin; give additional doses as needed -sputum cx-prelim negative; gram stain negative -COVID-19 test negative (05/14) -afebrile x >48 hrs, continue to monitor -will need additional debridement of LLE wounds once more stable per surgery Status: Acute (3) Acute respiratory failure: -intubated due to continued decompensation and fluid overload (05/25); remains on vent support -weaning trial when appropriate, would hold off due to persistent and significant fluid overload -daily CXR, ABG while on vent support -noted evidence of fluid overload on imaging; anuric, requiring emergent dialysis -continued close monitoring of respiratory status -sputum cx-prelim negative; gram stain negative -COVID-19 test negative (05/14) Status: Acute Qualifiers: Respiratory failure complication: unspecified whether with hypoxia or hypercapnia Qualified Code(s): J96.00 - Acute respiratory failure, unspecified whether with hypoxia or hypercapnia (4) Anasarca: -anasarca with total positive fluid balance of 12 L -anuric Status: Acute (5) Acute on chronic anemia: -baseline Hg appears to be 10-11 -required transfusion of 2 units PRBCs during last admission -s/p 2 units of PRBCs; anticipate need for transfusion of blood products; continue to monitor closely; Hg stable currently -continue to monitor for bleeding; none so far -off antiplatelets, on low dose Eliquis; stable Hg but worsening thrombocytopenia so will hold Eliquis Status: Acute (6) Stress-induced cardiomyopathy: -limited Echo: EF=30-35%; Echo with contrast shows EF=60-65%, no RWMA Status: Acute (7) CVA (cerebral vascular accident): -CT head: chronic changes -carotid US: <50% bilateral ICA stenosis -off ASA due to GI bleed hx; on statin -initially thought to be appropriate for tPA then not given as patient improved; she was evaluated by Dr. Owusu on admission Status: Acute Qualifiers: CVA mechanism: unspecified Qualified Code(s): I63.9 - Cerebral infarction, unspecified (8) Elevated troponin level: -noted elevated troponins; likely type II due to demand ischemia -Cardiology evaluation appreciated -limited echo as noted above; had echo with contrast as well -on AC with Eliquis (low dose) -will likely need outpatient stress testing Status: Acute (9) Intermittent atrial fibrillation: -tachycardic -telemetry monitoring -continue to monitor vital signs -on AC with Eliquis; held due to anemia -Echo: EF=30-35%; contrast Echo: EF=60-65% -off ASA due to GI bleed hx Status: Acute (10) Acute metabolic encephalopathy: -In light of continued clinical decompensation including development of septic shock -minimal sedation due to vent support but alert and seems to be responding, difficult to gauge mental status otherwise Status: Acute (11) Hypotension: -hemodynamic status stable Status: Resolved Qualifiers: Hypotension type: unspecified hypotension type Qualified Code(s): I95.9 - Hypotension, unspecified (12) UTI (urinary tract infection): -repeat UA shows continued evidence of infection; urine cx-ESBL E. coli, pseudomonas aeruginosa, sensitivity noted; previous cultures grew Joslyn albicans -on IV antibiotics Status: Acute Qualifiers: Urinary tract infection type: acute cystitis Hematuria presence: without hematuria Qualified Code(s): N30.00 - Acute cystitis without hematuria (13) High anion gap metabolic acidosis: -AG closed -continue to monitor Status: Resolved Additional A&P Information -GERD; on PPI -Morbid obesity: BMI-48 kg/m2 though overall has quite poor nutrition status as reflected by hypoalbuminemia which is contributing to lymphedema. -large hiatal hernia -Dyslipidemia; on statin -Chronic pain; on narcotics -Gram positive bacteremia secondary to LE cellulitis and acutely infected LLE wounds which were surgically debrided during last admission and additional bedside debridement on 05/21; blood cx grew VRE Enterococcus faecium. On Zyvox. Blood cx (05/21, 05/25): negative. Wound care with Santyl, hydrofera blue; continue to f/u at [facility] on d/c -Peripheral vascular disease; seen by Dr. Alejandre during previous admission, s/p peripheral angiogram with no noted significant vascular compromise noted. -COPD, not oxygen dependent at baseline -Vascular dementia -NIDDM type II; A1c-5.3; Accuchecks, ISS, hypoglycemia precautions particularly as NPO. DM complicated by nephropathy, PVD, neuropathy -Hypothyroidism; on levothyroxine, TSH wnl -Fecal retention; enemas PRN -Thrombocytopenia, d/c Eliquis, order peripheral smear, continue to monitor platelet count, coags in AM -NPO; unable to place OGT due to hernia, poor nutrition status, unlikely to tolerate peripheral nutrition with significant illness and ongoing fluid overload -DVT ppx not done as due to bleeding risk is off AC and cannot have SCDs due to LE wounds -Dispo: [facility] -Code status: FULL code. Advance directives paperwork in chart with josh Arias being DPOA. Incomplete health care directives (not notarized/signed) but patient had indicated desire not to pursue aggressive care (initialed on paperwork). Plan for goals of care discussion with son this afternoon. -continue ICU care due to critical illness -Very guarded prognosis -challenging family dynamics including wanting transfer then declining it once arranged; indecision despite multiple conversations including [id number] encounters for updates on patient's clinical status Attestations Medical Necessity Statement*: Patient requires hospitalization for continued management of acute renal failure, on dialysis, ongoing significant fluid overload on vent support, treatment of UTI and LLE infected wounds on IV antibiotics. Time Spent in Patient Care: Greater than 35 minutes (>than 50% of time spent in counselling and/or direct pt care on unit). Critical Care Time: The high probability of a clinically significant, sudden or life threatening deterioration of the patient's [cardiovascular, respiratory] system(s) required my full and direct attention, intervention and personal management. The critical care time is as shown. This time is in addition to time spent performing any reported procedures but includes the following: [x] Data and vital sign review and interpretation [x] Patient assessment, examination and intervention [x] Documentation [x] Medication orders and management Critical Care Time (min): 30 Coding Level of Care Code Acute Electronic Development Technician for g Fwd Diagnoses Acute kidney injury superimposed on CKD N17.9; N18.9 Septic shock A41.9; R65.21 Acute respiratory failure J96.00 Respiratory failure complication: unspecified whether with hypoxia or hypercapnia Anasarca R60.1 Acute on chronic anemia D64.9 Stress-induced cardiomyopathy I51.81 CVA (cerebral vascular accident) I63.9 CVA mechanism: unspecified Elevated troponin level R79.89 Intermittent atrial fibrillation I48.0 Acute metabolic encephalopathy G93.41 Hypotension I95.9 Hypotension type: unspecified hypotension type UTI (urinary tract infection) N30.00 Urinary tract infection type: acute cystitis Hematuria presence: without hematuria High anion gap metabolic acidosis E87.2
[2020-05-31 07:58] LABS: Glucose Point of Care 80 mg/dL (70-110)
[2020-05-31 07:58] LABS: Glucose Point of Care 61 mg/dL (70-110)
[2020-05-31 08:48] LABS: Glucose Point of Care 98 mg/dL (70-110)
[2020-05-31 09:20] LABS: LAB Peripheral Smear Sent for Review
--- NOTE | 2020-05-31 09:56 | PC.CHAP ---
Pastoral Care Encounter/Spiritual Assessment Type of Contact [] Declined warehouse administrator visit [] Patient/Family/Request visit [] Outpatient visit [xx] Follow-up visit [] Physician referral [] Code/Alert [] Routine visit [] Staff referral [] Actively dying [] Patient sleeping [] Family support [] [] Out of room [] Palliative care [] [] Receiving care in room [] Pre-surgical visit [] Trauma [] Long length of stay [] ICU visit [] Other: Relational/Emotional Strength [] Patient feels connected with others/family/visitors/staff [] Distress [] Loneliness/isolation [] Abandonment Spirituality of Patient [xx] Person of [place] [] Attends Pentecostalism of their [place] [] Believes in Prayer [] Reads Bible or Congregational materials [] There are Spiritual issues to be addressed [place] Administrator Interventions [] Prayer [] Active listening [] Non-anxious presence [] Spiritual/emotional support [] Crisis/trauma care [] Spiritual counseling [] Bereavement support [] Provided bereavement packet [] Provided Bible/devotional materials [] Provided toy/stuffed animal, coloring book to patient or family member [] Provided Communion [] Anointing/[place] [] Salvation [] Completed spiritual assessment [xx] Other: provided zoroastrian (read scripture and played music) Impact on Illness or Injury [] Angry [] Fearful [] Anxious [] Often cries [] Exhaustion [] Unable to work [] Unable to attend zoroastrian [] Unable to walk/stand [] Unable to read [] Unable to drive [] Unable to eat/drink [] Unable to sleep [] Unable to be with family [] Patient intubated [] Other: Summary: The idea of bringing her zoroastrian came to me, as she is ready to be with God and is at peace with God. I played a beautiful version of It is well with my soul, and read Psalm 23 to her. Time spent with patient: est 10 mins
[2020-05-31] MEDS: levothyroxine 100 mcg SDV IVP (11:15)
[2020-05-31] MEDS: pantoprazole 40 mg SDV IVP ×2 (11:15→21:40)
[2020-05-31] MEDS: dextrose 50% syringe 50 mL (11:50)
[2020-05-31] MEDS: collagenase oint 30 gm 1 APPLIC TOPICAL (11:56)
[2020-05-31 12:38] LABS: Glucose Point of Care 99 mg/dL (70-110)
[2020-05-31 12:38] LABS: Glucose Point of Care 66 mg/dL (70-110)
--- NOTE | 2020-05-31 15:10 | PM.PN ---
Subjective Subjective: Interval history: Patient was not transferred out as per wishes of patient's son. She has not been making much urine in spite of Lasix drip. She underwent dialysis today and ~1800 ml was removed. She remains in atrial fibrillation with heart rate mostly ranging in 90s to 110's with occasional spikes into 120s. Medications: Reviewed: Yes Medication Review Details: Current Medications Acetaminophen (Tylenol) 650 mg [place] Q6H PRN PRN Reason: FEVER Last Admin: 05/26/20 22:15 Dose: 650 mg Documented by: Apixaban (Eliquis) 2.5 mg PO BID [facility] Last Admin: 05/30/20 17:03 Dose: Not Given Documented by: Aripiprazole (Abilify) 5 mg PO BID [facility] Last Admin: 05/31/20 08:18 Dose: Not Given Documented by: Atorvastatin Calcium (Lipitor) 40 mg PO DAILY [facility] Last Admin: 05/31/20 08:18 Dose: Not Given Documented by: Bisacodyl (Bisac-Evac) 10 mg [place] DAILY [facility] Last Admin: 05/31/20 10:34 Dose: Not Given Documented by: Collagenase (Santyl) 1 applic TOPICAL DAILY [facility] Last Admin: 05/31/20 11:56 Dose: 1 applic Documented by: Fentanyl (Sublimaze) 25 mcg IVP Q2H PRN PRN Reason: Severe Pain or agitation Last Admin: 05/29/20 23:56 Dose: 25 mcg Documented by: Glucagon (Glucagen) 1 mg IM ONCE PRN; Protocol PRN Reason: Adult Acute Hypoglycemia Prot. Dextrose (D5w) 500 mls @ 100 mls/hr IV ONCE PRN; Protocol PRN Reason: Adult Acute Hypoglycemia Prot Last Infusion: 05/25/20 19:46 Dose: Infused Documented by: Linezolid (Zyvox Premix) 600 mg in 300 mls @ 300 mls/hr IV Q12H [facility]; Protocol Last Admin: 05/28/20 02:07 Dose: 300 mls/hr Documented by: Albumin Human (Albumin) 12.5 gm in 50 mls @ 60 mls/hr IV PRN PRN PRN Reason: Hypotension and/or symptomatic Fentanyl 1,000 mcg/ Sodium (Chloride) 100 mls @ 0 mls/hr IV .Q0M [facility]; Protocol Last Admin: 05/31/20 13:54 Dose: 100 mcg/hr, 10 mls/hr Documented by: Furosemide 100 mg/ Sodium (Chloride) 50 mls @ 10 mls/hr IV .Q5H [facility]; Protocol Last Titration: 05/31/20 09:30 Dose: 0 mg/hr, 0 mls/hr Documented by: Imipenem/Cilastatin Sodium 250 (mg/ Sodium Chloride) 100 mls @ 200 mls/hr IV Q6H [facility]; Protocol Last Admin: 05/31/20 03:58 Dose: 200 mls/hr Documented by: Levofloxacin/Dextrose (Levaquin-D5w) 750 mg in 150 mls @ 100 mls/hr IV Q48H [facility]; Protocol Last Infusion: 05/30/20 11:00 Dose: Infused Documented by: Furosemide 200 mg/ Sodium (Chloride) 100 mls @ 10 mls/hr IV .Q10H [facility]; Protocol Last Titration: 05/31/20 09:30 Dose: 0 mg/hr, 0 mls/hr Documented by: Insulin Aspart (Novolog) 0 unit SUBCUT TIDWM [facility]; Protocol Last Admin: 05/31/20 11:52 Dose: Not Given Documented by: Lanolin (Lanolin Oint) 1 applic TOPICAL PRN PRN PRN Reason: DRYNESS Last Admin: 05/30/20 03:12 Dose: 1 applic Documented by: Levothyroxine Sodium (Synthroid) 100 mcg IVP DAILY [facility] Last Admin: 05/31/20 11:15 Dose: 100 mcg Documented by: Lorazepam (Ativan) 2 mg IVP Q4H PRN PRN Reason: ANXIETY Last Admin: 05/31/20 00:46 Dose: 2 mg Documented by: Magnesium Hydroxide (Milk Of Magnesia) 30 ml PO DAILY PRN PRN Reason: Constipation Metoprolol Tartrate (Metoprolol Tartrate) 5 mg IV Q4H PRN PRN Reason: tachycardia Last Admin: 05/26/20 19:59 Dose: 5 mg Documented by: Midazolam HCl (Versed) 1 mg IVP Q2H PRN PRN Reason: AGITATION Last Admin: 05/30/20 02:59 Dose: 1 mg Documented by: Morphine Sulfate (Morphine) 1 mg IVP Q2H PRN PRN Reason: SEVERE PAIN Last Admin: 05/26/20 02:28 Dose: 1 mg Documented by: Neomycin/Polymyxin/Bacitracin (Neosporin Oint Tube) 1 applic TOPICAL BID PRN PRN Reason: with dressing changes Last Admin: 05/21/20 15:58 Dose: 1 applic Documented by: Ondansetron HCl (Zofran) 4 mg IVP Q6H PRN PRN Reason: NAUSEA AND VOMITING Pantoprazole Sodium (Protonix) 40 mg IVP Q12H [facility] Last Admin: 05/31/20 11:15 Dose: 40 mg Documented by: Senna/Docusate Sodium (Senna-S) 1 tab PO DAILY [facility] Last Admin: 05/31/20 08:19 Dose: Not Given Documented by: Vitals/I&O/Wt Last Vital Signs Temp 97.2 F L 05/31/20 12:00 Pulse 106 H 05/31/20 14:00 Resp 10 L 05/31/20 14:13 BP 112/65 05/31/20 14:00 Pulse Ox 100 05/31/20 14:00 05/31/20 05/31/20 05/31/20 06:59 14:59 22:59 Intake Total 71.333 / 915.333 174.500 / 174.500 Output Total 200 / 590 36 / 36 Balance -128.667 / 325.333 138.500 / 138.500 Weight last 48 hrs Weight 278 lb Weight 280 lb Physical Exam Const: GENERAL APPEARANCE: patient mechanically ventilated NUTRITIONAL APPEARANCE: obese Resp: COMMON NORMALS: clear to auscultation bilaterally (anteriorly) AUSCULTATION: clear to auscultation bilaterally (anteriorly), crackles, no rales and no rhonchi Cardio: PALPATION: abnormal PMI RATE: tachycardic RHYTHM: abnormal rhythm irregularly irregular HEART SOUNDS: no gallops and no murmurs PERIPHERAL PULSES: radial pulses present, posterior tibial pulses present and dorsalis pedis present Extremity: GENERAL: Yes edema (3-4+ edema, anasarca+), No pallor and Yes other findings (leg ulcers (left foot wound dressed), erythema present bilaterally) Neuro: WAI COMA SCALE: GCS not evaluated (patient currently sedated; spontaneous eye opening and extremity movement present) Data : 05/31/20 00:41 05/31/20 00:41 Micro: Microbiology 05/25/20 18:15 Blood Culture - Final Blood NO GROWTH AFTER 5 DAYS 05/25/20 18:20 Blood Culture - Final Blood NO GROWTH AFTER 5 DAYS A&P Assessment and plan (1) Septic shock: -resolved -recent blood cx negative so far, Urine cx with ESBL E. coli and Pseudomonas. -remains off levophed and Dobutamine. -On broad spectrum antibiotics. Status: Acute (2) Atrial fibrillation: Atrial fib with RVR; unable to get PO metoprolol. continue on low dose metoprolol 2.5 -5 mg IV Q 4 Hr PRN. -Eliquis held given h/o transfusion dependent anemia and drop in H&H. No obvious GI bleed per history. -recommend starting on anticoagulation once and if feasible given high [id number] score. -Heart rate running 90s to 110s, continue metoprolol as needed. Status: Acute Qualifiers: Atrial fibrillation type: longstanding persistent Qualified Code(s): I48.11 - Longstanding persistent atrial fibrillation (3) Cardiomyopathy: Concern for Stress induced cardiomyopathy, however study was TDS. -underlying CAD is a possibility. She has h/o CVA and PAD. -Not a good candidate now for any further work up with worsening renal function. -She has volume overload in setting of ARF. I do not think this is decompensated CHF that we are dealing with right now. -Her FiO2 requirement is at 0.21. -Repeat limited TTE with contrast showing improved LV function to 60% (off pressors). No RWMA. NO LV thrombus. Status: Acute Qualifiers: Cardiomyopathy type: unspecified Qualified Code(s): I42.9 - Cardiomyopathy, unspecified (4) Acute renal failure: -Required emergent dialysis on 05/25. Another dialysis session (UF) today as per nephrology - lasix gtt was held. -f/u BMP and I/O's closely. Status: Acute Qualifiers: Acute renal failure type: with acute tubular necrosis Qualified Code(s): N17.0 - Acute kidney failure with tubular necrosis (5) NSTEMI (non-ST elevated myocardial infarction): Type 2 in etiology due to underlying sepsis. Status: Acute (6) Type 2 diabetes mellitus: Status: Chronic Qualifiers: Diabetes mellitus complication status: with other specified complication Diabetes mellitus buttermaker helper insulin use: without jail use Qualified Code(s): E11.69 - Type 2 diabetes mellitus with other specified complication (7) Acute metabolic encephalopathy: Status: Acute Additional A&P Information Anion gap Metabolic acidosis: resolved Lactic acidosis: Patient was on and later discharged on Zyvox on 05/15/20; it can potentially cause lactic acidosis. Acute respiratory failure: intubated given altered mental status; On FiO2 0.21 H/O VRE becteremia in 04/2020 h/o ESBL UTI Underlying PNA Infected left foot ulcer : Anemia: Status post 2 units of packed RBC. Thrombocytopenia: Zyvox held Attestations Medical Necessity Statement*: As per primary team Coding Level of Care Code Acute Teacher Of The Sight Impaired for [facility] Fwd Exam Detailed Diagnoses Septic shock A41.9; R65.21 Atrial fibrillation I48.11 Atrial fibrillation type: longstanding persistent Cardiomyopathy I42.9 Cardiomyopathy type: unspecified Acute renal failure N17.0 Acute renal failure type: with acute tubular necrosis NSTEMI (non-ST elevated myocardial infarction) I21.4 Type 2 diabetes mellitus E11.69 Diabetes mellitus complication status: with other specified complication Diabetes mellitus jail insulin use: without jail use Acute metabolic encephalopathy G93.41
[2020-05-31] MEDS: lanolin oint 7 gm 1 APPLIC TOPICAL (15:20)
[2020-05-31 18:40] LABS: Glucose Point of Care 72 mg/dL (70-110)
[2020-05-31 20:07] LABS: ANCA Interp Negative (Negative)
[2020-06-01] VITALS (27 sets, daily range): BP systolic 90–140; BP diastolic 56–94; PULSE 101–119; RESP 8–15; TEMP 36.2–36.4; O2SAT 90–99
[2020-06-01 00:27] LABS: Glucose Point of Care 86 mg/dL (70-110)
[2020-06-01 04:55] LABS: Basophils % 0.3 %; Eosinophils # 0.5 10^3/uL (0.0-0.8); Eosinophils % 3.8 %; Hematocrit 31.5 % (37.0-47.0); Lymphocytes # 2.7 10^3/uL (0.8-4.8); Lymphocytes % 22.8 %; Mean Corpuscular HGB Conc 31.7 g/dL (30.0-36.0); Mean Corpuscular Hemoglobin 29.5 pg (28.0-34.0); Mean Corpuscular Volume 92.9 fL (81-99); Mean Platelet Volume 10.7 fL (7.4-10.4); Monocytes # 0.6 10^3/uL (0.2-0.9); Neutrophils # 7.95 10^3/uL (1.8-7.7); Neutrophils % 67.6 %; Nucleated Red Blood Cells % 0 %; Platelet Count 50 10^3/cmm (130-400); Red Blood Count 3.39 10^6/uL (4.1-5.3); White Blood Count 11.8 10^3/uL (4.0-10.0)
[2020-06-01 05:05] LABS: INR 1.23 (0.8-1.2)
[2020-06-01 05:26] LABS: Alanine Aminotransferase < 5 U/L (0-33); Alkaline Phosphatase 149 IU/L (35-105); Anion Gap 15.4 (5-19); Aspartate Amino Transferase 14 U/L (0-32); Blood Urea Nitrogen 31 mg/dL (8-23); Calcium 8.2 mg/dL (8.5-10.5); Carbon Dioxide 22 mmol/L (22-29); Chloride 101 mmol/L (98-107); Globulin 2.8 g/dL (1.3-4.6); Glucose 98 mg/dL (65-115); Magnesium 1.8 mg/dL (1.7-2.3); Osmolality Calculated 277 mOsm/kg (285-295); Phosphorus 4.6 mg/dL (2.5-4.5); Potassium 3.4 mmol/L (3.5-5.1); Sodium 135 mmol/L (136-145); Total Bilirubin 0.6 mg/dL (0.15-1.2); Total Protein 4.8 g/dL (6.6-8.7)
--- NOTE | 2020-06-01 06:00 | XRR_ITS ---
PROCEDURE INFORMATION: Exam: XR Chest, 1 View Exam date and time: 06/01/2020 3:47 AM Age: 69 years old Clinical indication: Device placement; Ett placement (vent status); Additional info: On vent support TECHNIQUE: Imaging protocol: XR of the chest Views: 1 view. COMPARISON: CR XR chest 1V portable [id number] 05/30/2020 5:58 AM FINDINGS: Tubes, catheters and devices: The endotracheal tube is appropriately positioned in the distal thoracic trachea with the tip above the brynn. Right internal jugular central line tip is in the lower SVC near the cavoatrial junction. Lungs: Lungs are clear. Pleural space: There is no pleural effusion or pneumothorax. Heart/Mediastinum: There is mild enlargement of the cardiac silhouette. Bones/joints: Bones are unremarkable. XR/XR chest 1V portable [id number] IMPRESSION: 1. Stable lines and tubes. 2. Lungs are clear. 3. Stable cardiac enlargement.
--- NOTE | 2020-06-01 06:59 | P.PN_ITS ---
Subjective Subjective: Interval history: remains sedated and intubated. no pressors. not interactive. leg lesions, swollen Medications: Reviewed: Yes Medication Review Details: Current Medications Acetaminophen (Tylenol) 650 mg [place] Q6H PRN PRN Reason: FEVER Last Admin: 05/26/20 22:15 Dose: 650 mg Documented by: Apixaban (Eliquis) 2.5 mg PO BID [facility] Last Admin: 05/30/20 17:03 Dose: Not Given Documented by: Aripiprazole (Abilify) 5 mg PO BID [facility] Last Admin: 05/31/20 15:21 Dose: Not Given Documented by: Atorvastatin Calcium (Lipitor) 40 mg PO DAILY [facility] Last Admin: 05/31/20 08:18 Dose: Not Given Documented by: Bisacodyl (Bisac-Evac) 10 mg [place] DAILY [facility] Last Admin: 05/31/20 10:34 Dose: Not Given Documented by: Collagenase (Santyl) 1 applic TOPICAL DAILY [facility] Last Admin: 05/31/20 11:56 Dose: 1 applic Documented by: Fentanyl (Sublimaze) 25 mcg IVP Q2H PRN PRN Reason: Severe Pain or agitation Last Admin: 05/29/20 23:56 Dose: 25 mcg Documented by: Glucagon (Glucagen) 1 mg IM ONCE PRN; Protocol PRN Reason: Adult Acute Hypoglycemia Prot. Dextrose (D5w) 500 mls @ 100 mls/hr IV ONCE PRN; Protocol PRN Reason: Adult Acute Hypoglycemia Prot Last Infusion: 05/25/20 19:46 Dose: Infused Documented by: Linezolid (Zyvox Premix) 600 mg in 300 mls @ 300 mls/hr IV Q12H [facility]; Protocol Last Admin: 05/28/20 02:07 Dose: 300 mls/hr Documented by: Albumin Human (Albumin) 12.5 gm in 50 mls @ 60 mls/hr IV PRN PRN PRN Reason: Hypotension and/or symptomatic Fentanyl 1,000 mcg/ Sodium (Chloride) 100 mls @ 0 mls/hr IV .Q0M [facility]; Protocol Last Admin: 05/31/20 23:38 Dose: 100 mcg/hr, 10 mls/hr Documented by: Imipenem/Cilastatin Sodium 250 (mg/ Sodium Chloride) 100 mls @ 200 mls/hr IV Q6H [facility]; Protocol Last Admin: 06/01/20 03:12 Dose: 200 mls/hr Documented by: Levofloxacin/Dextrose (Levaquin-D5w) 750 mg in 150 mls @ 100 mls/hr IV Q48H [facility] ; Protocol Last Infusion: 05/30/20 11:00 Dose: Infused Documented by: Insulin Aspart (Novolog) 0 unit SUBCUT TIDWM [facility]; Protocol Last Admin: 05/31/20 20:36 Dose: Not Given Documented by: Lanolin (Lanolin Oint) 1 applic TOPICAL PRN PRN PRN Reason: DRYNESS Last Admin: 05/31/20 15:20 Dose: 1 applic Documented by: Levothyroxine Sodium (Synthroid) 100 mcg IVP DAILY [facility] Last Admin: 05/31/20 11:15 Dose: 100 mcg Documented by: Lorazepam (Ativan) 2 mg IVP Q4H PRN PRN Reason: ANXIETY Last Admin: 05/31/20 22:55 Dose: 2 mg Documented by: Magnesium Hydroxide (Milk Of Magnesia) 30 ml PO DAILY PRN PRN Reason: Constipation Metoprolol Tartrate (Metoprolol Tartrate) 5 mg IV Q4H PRN PRN Reason: tachycardia Last Admin: 05/26/20 19:59 Dose: 5 mg Documented by: Midazolam HCl (Versed) 1 mg IVP Q2H PRN PRN Reason: AGITATION Last Admin: 05/30/20 02:59 Dose: 1 mg Documented by: Morphine Sulfate (Morphine) 1 mg IVP Q2H PRN PRN Reason: SEVERE PAIN Last Admin: 05/26/20 02:28 Dose: 1 mg Documented by: Neomycin/Polymyxin/Bacitracin (Neosporin Oint Tube) 1 applic TOPICAL BID PRN PRN Reason: with dressing changes Last Admin: 05/21/20 15:58 Dose: 1 applic Documented by: Ondansetron HCl (Zofran) 4 mg IVP Q6H PRN PRN Reason: NAUSEA AND VOMITING Pantoprazole Sodium (Protonix) 40 mg IVP Q12H [facility] Last Admin: 05/31/20 21:40 Dose: 40 mg Documented by: Senna/Docusate Sodium (Senna-S) 1 tab PO DAILY [facility] Last Admin: 05/31/20 08:19 Dose: Not Given Documented by: Vitals/I&O/Wt Last Vital Signs Temp 97.6 F 06/01/20 04:00 Pulse 115 H 06/01/20 06:00 Resp 12 06/01/20 05:49 BP 140/82 06/01/20 05:30 Pulse Ox 97 06/01/20 06:00 05/31/20 05/31/20 06/01/20 14:59 22:59 06:59 Intake Total 274.500 / 274.500 200 / 474.500 97.333 / 571.833 Output Total 36 / 36 26 / 62 50 / 112 Balance 238.500 / 238.500 174 / 412.500 47.333 / 459.833 Weight last 48 hrs Weight 125.418 kg Weight 126.099 kg Physical Exam Narrative: EXAM NARRATIVE: exam performed by RN as telemedicine visit -intubated, sedtaed, off of pressors, responds to pain vent AC/ fio2=21%, PEEP 8. rr 8 remains in afib w/HR 100 -130, bp-low [place] heent- nc/at, eomi, anicteric lungs - crackles b/l heart irreg irreg, +YANDY abd soft, + bs, nt ext legs swollen w/ lesions on left leg- edema neuro- sedated, moving swollen Data : 06/01/20 04:16 06/01/20 04:16 A&P Additional A&P Information 1. PERRY - likely infection mediated ATN - Diff includes Lupus but less likely. -normal C3/C4. will discuss w/ medicine possibility of steroids - is oliguric. s/p SUF yesterday and 1.8 l removed -repeat HD now - dose meds for eGFR < 30 - avoid nephrotoxins -check anca and anti gbm - strict Is and Os 2. VDRF - weaning as tolerated - monitor w/ suf 3. Sepsis - Ecoli and pseudomonas - remains on Primaxin 4. Nutrition - q NGT or tpn 5.leg wounds per medicine and surgery 6. a fib w/ RVR as per cardiology 7. anemia- hgb improved after prbc tx 8. hypotension- check cortisol level. -given pts poor clinical sttus, one may consider a steroid trial prior to comfort care. however, steroids may worsen leg wound -agree that prognosis is poor Exam performed by Telemed with assistance of bedside RN Attestations Medical Necessity Statement*: perry, vdrf, hypotension, leg wounds, a fib Time Spent in Patient Care: 16 - 35 minutes Coding Level of Care Code Acute Public Affairs Specialist for Darek Ojeda
[2020-06-01 08:20] LABS: Cortisol Random 14.13 ug/mL (2.47-19.5)
--- NOTE | 2020-06-01 08:29 | DCPLANNER ---
Attempted to update Pg 2 of IM, chart is in the room with the Dialysis Nurse. Per the [employer] should be in today to decide if pt will be terminally extubated.
[2020-06-01] MEDS: scopolamine 1.5 Patch 1 PATCH TRANSDERMA (10:24)
--- NOTE | 2020-06-01 10:31 | PC.NURSE ---
Spoke with son, Hugo ([phone]), this morning at around 9:15am. He is also also DPOA (verified by paperwork in chart) for this patient. He says he discussed the pt's current status with other family members and they have agreed to transition pt to comfort care only. Discussed with him in detail the comfort care transition process in regards to comfort-centered care, withdrawal of life sustaining measures (including extubation), code status change to DNR, comfort medications, and miscellaneous comfort measures that are available. He is agreeable, and all of his questions were answered. Spoke with Dr. Keys, who gave orders for Comfort Care Protocol, DNR code status, terminal extubation, and comfort medications (see MAR). All other treatment-centered measures are to be stopped. Pt became hypotensive during dialysis, so the pharmacy director stopped dialysis once he was informed that pt was being transitioned to comfort measures only. Hugo and other family members plan to be here at around noon, and are agreeable to terminal extubation at that time.
[2020-06-01] MEDS: LORazepam 2 mg/mL INJ 1 mL IVP (13:21)
[2020-06-01] MEDS: morphine 4 mg/mL SDV 1 mL 2 MG IVP (13:21)
[2020-06-01] MEDS: lanolin oint 7 gm 1 APPLIC TOPICAL (13:28)
[2020-06-01 17:35] LABS: Glucose Point of Care 81 mg/dL (70-110)
--- NOTE | 2020-06-01 18:06 | P.PN_ITS ---
Subjective Subjective: Interval history: family has decided to make her comfort care and withdraw support.She was terminally extubated in the presence of her family members. Medications: Reviewed: Yes Vitals/I&O/Wt Last Vital Signs Temp 97.2 F L 06/01/20 08:00 Pulse 119 H 06/01/20 12:00 Resp 11 L 06/01/20 11:48 BP 121/72 06/01/20 11:00 Pulse Ox 99 06/01/20 12:00 06/01/20 06/01/20 06/01/20 06:59 14:59 22:59 Intake Total 197.333 / 671.833 100 / 100 Output Total 50 / 112 0 / 0 0 / 0 Balance 147.333 / 559.833 100 / 100 0 / 100 Weight last 48 hrs Weight 125.418 kg Weight 126.099 kg Physical Exam Narrative: EXAM NARRATIVE: GENERAL APPEARANCE: ill appearing, Edematous and patient mechanically ventilated NUTRITIONAL APPEARANCE: obese morbidly obese ORIENTATION/CONSCIOUSNESS: GCS :7T OTHER: -intermittently restless, minimal sedation with Fentanyl. -intubated, sedtaed, off of pressors, responds to pain vent AC/ fio2=21%, PEEP 8. rr 8 remains in afib w/HR 100 -130, bp-low [place] heent- nc/at, eomi, anicteric lungs - crackles b/l heart irreg irreg, +YANDY abd soft, + bs, nt ext legs swollen w/ lesions on left leg- edema neuro- sedated, moving swollen Resp: COMMON NORMALS: No use of accessory muscles GI: COMMON NORMALS: non-tender Data : 06/01/20 04:16 06/01/20 04:16 A&P Assessment and plan (1) Acute renal failure: Noted to be anuric with worsening renal function -failed trial of IVF and developed fluid overload; repeat fluid challenge showed she is not fluid responsive -has temporary dialysis catheter (R IJ); one session so far -Has had issues in the past with acute renal impairment including during last admission -Continue to monitor urine output; some improvement with lasix drip; has Patino catheter -Avoid nephrotoxins, renally dose meds -Nephrology evaluation appreciated -Baseline creatinine appears to be around 1-1.4 though has been as high as 5.7 in the past. Renal function stable -in light of decreased EF, could be related to low output -renal US: limited -PERRY on CKD stage 3 -UPEP, SPEP both negative; serum immunofixation shows no monoclonal proteins. Complements wnl, pending ANCA -BRISSA positive, titer 1:1280, speckled pattern; could be autoimmune vs. sepsis related but will need more specific workup for this -d/c lasix drip and will have dialysis today; received dose of acetazolamide with minimal response Status: Acute Qualifiers: Acute renal failure type: with acute tubular necrosis Qualified Code(s): N17.0 - Acute kidney failure with tubular necrosis (2) Anasarca: -anasarca with total positive fluid balance of 11 L -anuric Status: Acute (3) Septic shock: Noted significant leukocytosis, lactic acidosis, with associated acute respiratory failure, acute metabolic encephalopathy, hypotension, acute renal impairment, anuria, fever. Septic shock resolved as no longer febrile, encephalopathy and hypotension resolved -Noted to have decreased ejection fraction of 30-35% on limited echo which is likely contributing to overall clinical decompensation -off pressor support x > 72 hrs -Close monitoring of vital signs -intubated due to continued decompensation and fluid overload (05/25); remains on vent support; weaning trial today -has noted UTI and LLE cellulitis with infected ulcers. Based on cultures, on Primaxin and Levaquin (renally dosed); off Flagyl, Zosyn, and Linezolid -repeat blood cx- negative; previous cultures grew VRE Enterococcus faecium -had PICC line in place before, now removed; culture of tip negative -repeat UA shows continued evidence of infection; urine cx-ESBL E. coli, pseudomonas aeruginosa, sensitivity noted; previous cultures grew Joslyn albicans. Has had ESBL before. Isolation precautions -Received 4 doses of albumin; give additional doses as needed -sputum cx-prelim negative; gram stain negative -COVID-19 test negative (05/14) -afebrile x >48 hrs, continue to monitor -will need additional debridement of LLE wounds once more stable per surgery Status: Acute (4) Chronic anemia: baseline Hg appears to be 10-11 -required transfusion of 2 units PRBCs during last admission -s/p 2 units of PRBCs; anticipate need for transfusion of blood products; continue to monitor closely; Hg stable currently -continue to monitor for bleeding; none so far -off antiplatelets, on low dose Eliquis; stable Hg but worsening thrombocytopenia so will hold Eliquis Status: Chronic (5) Acute respiratory failure: ntubated due to continued decompensation and fluid overload (05/25); remains on vent support -weaning trial when appropriate, would hold off due to persistent and significant fluid overload -daily CXR, ABG while on vent support -noted evidence of fluid overload on imaging; anuric, requiring emergent dialysis -continued close monitoring of respiratory status -sputum cx-prelim negative; gram stain negative -COVID-19 test negative (05/14) Status: Acute Qualifiers: Respiratory failure complication: unspecified whether with hypoxia or hypercapnia Qualified Code(s): J96.00 - Acute respiratory failure, unspecified whether with hypoxia or hypercapnia Attestations Medical Necessity Statement*: Patient has been shifted from MICU to Floor.Will follow comfort care protocol Coding Level of Care Code Acute Network Operations Center Engineer for g Fwd Exam Expanded Problem Focused Diagnoses Acute renal failure N17.0 Acute renal failure type: with acute tubular necrosis Anasarca R60.1 Septic shock A41.9; R65.21 Chronic anemia D64.9 Acute respiratory failure J96.00 Respiratory failure complication: unspecified whether with hypoxia or hypercapnia
--- NOTE | 2020-06-01 18:09 | PC.NURSE ---
Witnessed fentanyl gtt waste by Paradise Rios RN. 60 ml wastes plus tubing.
--- NOTE | 2020-06-01 19:34 | PC.NURSE ---
Pt terminally extubated at 13:25. She has been on room air ever since extubation, with no s/s distress. SpO2 97-100% all afternoon. Heart rhythm remains in A-fib with HR 100-120bpm without ectopy. She slept most of the afternoon, with no s/s discomfort. She arouses easily but does not make eye contact with staff and rarely answers yes/no questions. Family was at bedside at time of extubation. Education given once again on comfort measures and availability of PRN medications to keep her comfortable. All of their questions were answered. She was transferred to room [facility] at 19:20 without incident. Son Hugo (DPOA) was updated on transfer as well. Report given to receiving nurse, Maryjo; all questions answered.
[2020-06-01] MEDS: morphine 4 mg/mL SDV 1 mL 1 MG IVP (20:08)
[2020-06-02 05:42] VITALS: RESP 16
[2020-06-02] MEDS: morphine 4 mg/mL SDV 1 mL 2 MG IVP ×3 (05:42→15:04)
--- NOTE | 2020-06-02 11:07 | PM.PN ---
Subjective Subjective: Interval history: Currently on comfort care post terminally extubation. Medications: Reviewed: Yes Medication Review Details: Current Medications Acetaminophen (Tylenol) 650 mg IA Q6H PRN PRN Reason: FEVER Last Admin: 05/26/20 22:15 Dose: 650 mg Documented by: Apixaban (Eliquis) 2.5 mg PO BID [facility] Last Admin: 05/30/20 17:03 Dose: Not Given Documented by: Aripiprazole (Abilify) 5 mg PO BID [facility] Last Admin: 05/31/20 15:21 Dose: Not Given Documented by: Atorvastatin Calcium (Lipitor) 40 mg PO DAILY [facility] Last Admin: 05/31/20 08:18 Dose: Not Given Documented by: Bisacodyl (Bisac-Evac) 10 mg IA DAILY [facility] Last Admin: 05/31/20 10:34 Dose: Not Given Documented by: Collagenase (Santyl) 1 applic TOPICAL DAILY [facility] Last Admin: 05/31/20 11:56 Dose: 1 applic Documented by: Fentanyl (Sublimaze) 25 mcg IVP Q2H PRN PRN Reason: Severe Pain or agitation Last Admin: 05/29/20 23:56 Dose: 25 mcg Documented by: Glucagon (Glucagen) 1 mg IM ONCE PRN; Protocol PRN Reason: Adult Acute Hypoglycemia Prot. Dextrose (D5w) 500 mls @ 100 mls/hr IV ONCE PRN; Protocol PRN Reason: Adult Acute Hypoglycemia Prot Last Infusion: 05/25/20 19:46 Dose: Infused Documented by: Linezolid (Zyvox Premix) 600 mg in 300 mls @ 300 mls/hr IV Q12H [facility]; Protocol Last Admin: 05/28/20 02:07 Dose: 300 mls/hr Documented by: Albumin Human (Albumin) 12.5 gm in 50 mls @ 60 mls/hr IV PRN PRN PRN Reason: Hypotension and/or symptomatic Fentanyl 1,000 mcg/ Sodium (Chloride) 100 mls @ 0 mls/hr IV .Q0M [facility]; Protocol Last Admin: 05/31/20 23:38 Dose: 100 mcg/hr, 10 mls/hr Documented by: Imipenem/Cilastatin Sodium 250 (mg/ Sodium Chloride) 100 mls @ 200 mls/hr IV Q6H [facility]; Protocol Last Admin: 06/01/20 03:12 Dose: 200 mls/hr Documented by: Levofloxacin/Dextrose (Levaquin-D5w) 750 mg in 150 mls @ 100 mls/hr IV Q48H [facility]; Protocol Last Infusion: 05/30/20 11:00 Dose: Infused Documented by: Insulin Aspart (Novolog) 0 unit SUBCUT TIDWM [facility]; Protocol Last Admin: 05/31/20 20:36 Dose: Not Given Documented by: Lanolin (Lanolin Oint) 1 applic TOPICAL PRN PRN PRN Reason: DRYNESS Last Admin: 05/31/20 15:20 Dose: 1 applic Documented by: Levothyroxine Sodium (Synthroid) 100 mcg IVP DAILY [facility] Last Admin: 05/31/20 11:15 Dose: 100 mcg Documented by: Lorazepam (Ativan) 2 mg IVP Q4H PRN PRN Reason: ANXIETY Last Admin: 05/31/20 22:55 Dose: 2 mg Documented by: Magnesium Hydroxide (Milk Of Magnesia) 30 ml PO DAILY PRN PRN Reason: Constipation Metoprolol Tartrate (Metoprolol Tartrate) 5 mg IV Q4H PRN PRN Reason: tachycardia Last Admin: 05/26/20 19:59 Dose: 5 mg Documented by: Midazolam HCl (Versed) 1 mg IVP Q2H PRN PRN Reason: AGITATION Last Admin: 05/30/20 02:59 Dose: 1 mg Documented by: Morphine Sulfate (Morphine) 1 mg IVP Q2H PRN PRN Reason: SEVERE PAIN Last Admin: 05/26/20 02:28 Dose: 1 mg Documented by: Neomycin/Polymyxin/Bacitracin (Neosporin Oint Tube) 1 applic TOPICAL BID PRN PRN Reason: with dressing changes Last Admin: 05/21/20 15:58 Dose: 1 applic Documented by: Ondansetron HCl (Zofran) 4 mg IVP Q6H PRN PRN Reason: NAUSEA AND VOMITING Pantoprazole Sodium (Protonix) 40 mg IVP Q12H [facility] Last Admin: 05/31/20 21:40 Dose: 40 mg Documented by: Senna/Docusate Sodium (Senna-S) 1 tab PO DAILY [facility] Last Admin: 05/31/20 08:19 Dose: Not Given Documented by: Vitals/I&O/Wt Last Vital Signs Temp 97.2 F L 06/01/20 08:00 Pulse 119 H 09/07/20 12:00 Resp 16 06/02/20 05:42 BP 121/72 06/01/20 11:00 Pulse Ox 99 06/01/20 12:00 06/01/20 06/02/20 06/02/20 22:59 06:59 14:59 Intake Total 40 / 140 Output Total 0 / 0 100 / 100 Balance 40 / 140 -100 / 40 Weight last 48 hrs Weight 120.23 kg Weight 125.418 kg Physical Exam Narrative: EXAM NARRATIVE: GENERAL APPEARANCE: ill appearing, Edematous and patient mechanically ventilated NUTRITIONAL APPEARANCE: obese morbidly obese ORIENTATION/CONSCIOUSNESS: GCS :6 OTHER: -intermittently restless, minimal sedation with Fentanyl. -sedtaion off, off of pressors, responds to pain heent- nc/at, eomi, anicteric lungs - crackles b/l heart irreg irreg, +YANDY abd soft, + bs, nt ext legs swollen w/ lesions on left leg- edema neuro- sedated, moving swollen Resp: COMMON NORMALS: No use of accessory muscles GI: COMMON NORMALS: non-tender Data : 06/01/20 04:16 06/01/20 04:16 A&P Assessment and plan (1) Acute renal failure: Noted to be anuric with worsening renal function -failed trial of IVF and developed fluid overload; repeat fluid challenge showed she is not fluid responsive -has temporary dialysis catheter (R IJ); one session so far -Has had issues in the past with acute renal impairment including during last admission -Continue to monitor urine output; some improvement with lasix drip; has Patino catheter -Baseline creatinine appears to be around 1-1.4 though has been as high as 5.7 in the past. Renal function stable -in light of decreased EF, could be related to low output -renal US: limited -PERRY on CKD stage 3 -UPEP, SPEP both negative; serum immunofixation shows no monoclonal proteins. Complements wnl, pending ANCA -BRISSA positive, titer 1:1280, speckled pattern; could be autoimmune vs. sepsis related but will need more specific workup for this -No acute intervention.HD has been discontinued. Status: Acute Qualifiers: Acute renal failure type: with acute tubular necrosis Qualified Code(s): N17.0 - Acute kidney failure with tubular necrosis (2) Anasarca: -anasarca with total positive fluid balance of 11 L -anuric -No acute intervention. Status: Acute (3) Septic shock: No acute intervention Status: Acute (4) Chronic anemia: No acute intervention Status: Chronic (5) Acute respiratory failure: No acute intervention Status: Acute Qualifiers: Respiratory failure complication: unspecified whether with hypoxia or hypercapnia Qualified Code(s): J96.00 - Acute respiratory failure, unspecified whether with hypoxia or hypercapnia Attestations Medical Necessity Statement*: Patient has been terminally extubated to comfort care. Coding Level of Care Code Acute Hall Cleaner for [facility] Fwd Diagnoses Acute renal failure N17.0 Acute renal failure type: with acute tubular necrosis Anasarca R60.1 Septic shock A41.9; R65.21 Chronic anemia D64.9 Acute respiratory failure J96.00 Respiratory failure complication: unspecified whether with hypoxia or hypercapnia
[2020-06-02 11:59] VITALS: BP 85/62; PULSE 113; RESP 16; TEMP 36.6; O2SAT 98
[2020-06-02 15:04] VITALS: RESP 14
--- NOTE | 2020-06-02 15:37 | PC.NURSE ---
DRESSING CHANGE THIS NURSE APPLIED NEW DRESSINGS TO PATIENT'S WOUNDS. THE PREVIOUS DRESSINGS HAD BECOME SATURATED FROM PATIENT'S WEEPING SKIN. REPOSITIONED PATIENT. MORPHINE ADMINISTERED BEFORE THIS TASK.
[2020-06-02] MEDS: LORazepam 2 mg/mL INJ 1 mL IVP (16:40)
--- NOTE | 2020-06-02 17:47 | PC.NURSE ---
ILA Mc - Spoke with REYNALDO Arias at 1743 and then reynaldo Lopez at 1748 to give update on patient. PARRIS, MABEL
--- NOTE | 2020-06-02 18:00 | PC.NURSE ---
FAMILY THIS NURSE HAS SPOKEN TO JAVIER YOUNGER 3 TIMES THROUGHOUT THE DAY TO KEEP HIM UPDATED ON PATIENT. THIS NURSE FINISHED THE 3RD CONVERSATION OF THE DAY WITH JAVIER, WENT TO ANOTHER PATIENT'S ROOM, AND ADI CALLED. ANGELICA MONROE ANSWERED PHONE. ANGELICA THEN PROCEEDED TO VOALTE THIS NURSE. THIS NURSE ANSWERED AND CAME TO THE NURSES STATION IMMEDIATELY TO TALK TO ADI ON THE PHONE. ADI STATED TO THIS NURSE HE HAS A DYING FAMILY MEMBER IN THE HOSPITAL AND HASN'T RECEIVED INFORMATION AND SHOULD EASILY GET IT. HE ALSO STATED HE WOULD BE GOING ABOVE THIS NURSES HEAD TO COMPLAIN TO ADMINISTRATION. THIS NURSE EXPLAINED TO ADI THAT THIS NURSE SPOKE TO JAVIER 3 TIMES THROUGHOUT THE DAY AND PROCEEDED TO UPDATE ADI ON PATIENT STATUS AND CARE. AT THE END OF THE CONVERSATION ADI THANKED THIS NURSE FOR ANSWERING HIS QUESTIONS. THIS NURSE ADMINISTERED MORPHINE AND ATIVAN THROUGHOUT THE DAY. THIS NURSE ALSO EXPLAINED TO JAVIER THAT A ROUND OF VITALS HAD BEEN SKIPPED DUE TO THE FACT THAT CHECKING BLOOD PRESSURES CAUSED THE PATIENT PAIN. JAVIER STATED HE UNDERSTOOD AND WAS OKAY . THIS NURSE PREMEDICATED PATIENT BEFORE ROTATING OR DRESSING CHANGES. CARE CONTINUED.
--- NOTE | 2020-06-02 18:00 | PC.NURSE ---
SHIFT SUMMARY PATIENT HAS RESTED ALL DAY TODAY. THIS NURSE ADMINISTERED MORPHINE BEFORE TURNING AND CHANGING PATIENT. THIS NURSE ALSO ADMINISTERED ONE DOSE OF ATIVAN PATIENT APPEARED SLIGHTLY RESTLESS. PATIENT IS CONTINUING TO WEEP. CHUCKS HAVE BEEN CHANGED ROUTINELY TO KEEP PATIENT DRY. PATIENT HAS HAD 50ML OF DARK BROWN URINE OUTPUT. PATIENT JUST REPOSITIONED AND CURRENTLY RESTING WELL. VITALS STABLE AT THIS TIME MINUS THE SOFT BP.
[2020-06-02 20:00] VITALS: PULSE 110; RESP 16; O2SAT 98
[2020-06-03] VITALS (8 sets, daily range): BP systolic 108–127; BP diastolic 69–72; PULSE 110–125; RESP 10–16; TEMP 36–36.4; O2SAT 90–98; BMI 45.5
[2020-06-03] MEDS: morphine 4 mg/mL SDV 1 mL 2 MG IVP ×6 (02:26→20:15)
[2020-06-03] MEDS: lanolin oint 7 gm 1 APPLIC TOPICAL (07:00)
--- NOTE | 2020-06-03 08:04 | PC.NURSE ---
Attempted to do a blood pressure on patient at this time. Patient yelled out in pain. Patient is a comfort care patient. Will not repeat the blood pressure as it is hurting the patient.
[2020-06-03] MEDS: LORazepam 2 mg/mL INJ 1 mL IVP ×3 (08:37→20:15)
--- NOTE | 2020-06-03 09:26 | PC.SOCIAL ---
IMM Not Updated Pg. 2 of IMM not updated. Patient on comfort measures at this time.
--- NOTE | 2020-06-03 10:48 | PM.PN ---
Subjective Subjective: Interval history: Patient appears comfortable. She does not respond to verbal stimulation. Medications: Reviewed: Yes Vitals/I&O/Wt Last Vital Signs Temp 97.8 F 06/02/20 11:59 Pulse 110 H 06/02/20 20:00 Resp 16 06/03/20 08:46 BP 85/62 06/02/20 11:59 Pulse Ox 98 06/02/20 20:00 06/02/20 06/03/20 06/03/20 22:59 06:59 14:59 Output Total 50 / 50 Balance -50 / -50 Weight last 48 hrs Weight 120.23 kg Weight 120.23 kg Physical Exam Narrative: EXAM NARRATIVE: General exam is appears comfortable Cardiovascular, irregular, irregular Lungs diminished breath sounds bilaterally Abdomen soft, bowel sounds are noted Extremities, dressing noted left lower extremity. This was not removed. No clubbing Data : 06/01/20 04:16 06/01/20 04:16 A&P Assessment and plan (1) Acute renal failure: Last lab work June 01. She has been transitioned to comfort measures. She is not taking in p.o. fluids. Renal function is expected to decline. Still hypotensive. Status: Acute Qualifiers: Acute renal failure type: with acute tubular necrosis Qualified Code(s): N17.0 - Acute kidney failure with tubular necrosis (2) Anasarca: Status: Acute (3) Septic shock: Status: Acute (4) Chronic anemia: Status: Chronic (5) Acute respiratory failure: No acute intervention Status: Acute Qualifiers: Respiratory failure complication: unspecified whether with hypoxia or hypercapnia Qualified Code(s): J96.00 - Acute respiratory failure, unspecified whether with hypoxia or hypercapnia Additional A&P Information History of bacteremia last hospital stay with [facility] Multiple other medical problems as listed on admission history and physical and multiple progress notes. Secondary to patient's multiple comorbidities family has opted for comfort measures. Dialysis was discontinued and patient was moved to comfort measures on June 01. At this time she appears comfortable. She has PRN's for morphine as well as Ativan. I did call her contact numbers today to see if there was any other family concerns that have come up. There was no answer at this time. Attestations Medical Necessity Statement*: Needs continued inpatient management for comfort measures in this patient at end of life with multiple comorbidities. Coding Level of Care Code Acute Customs Entry Clerk for [facility] Fwd Diagnoses Acute renal failure N17.0 Acute renal failure type: with acute tubular necrosis Anasarca R60.1 Septic shock A41.9; R65.21 Chronic anemia D64.9 Acute respiratory failure J96.00 Respiratory failure complication: unspecified whether with hypoxia or hypercapnia
--- NOTE | 2020-06-03 12:08 | PC.NURSE ---
Dr. Pierce gvies permission for grandchild to visit patient to say alpesh. Child required to wear mask in hallways. Family notified. Security notified.
--- NOTE | 2020-06-03 18:42 | PC.NURSE ---
End of shift summary This is this writers first day taking care of this patient this stay. Patient family has visited on and off today. Patient family wants patient's blood pressure taken every 4 hours. Patient is retaining fluid causing swelling to her arms and legs which is causing the patient a lot of pain when her blood pressure is taken. There is enough swelling that sometime we are unable to obtain a blood pressure. Patient has a Patino Catheter that is draining bloody urine. Patient's arms and legs are weeping the fluid.
[2020-06-04] VITALS (11 sets, daily range): PULSE 95–113; RESP 10–16; TEMP 36.7; O2SAT 95
--- NOTE | 2020-06-04 00:01 | PC.NURSE ---
Attempted to get blood pressure at 12:00 am. I was not able to get a reading. Obviously causing harm to patients arm. Will try to get at a later time.
[2020-06-04] MEDS: morphine 4 mg/mL SDV 1 mL 2 MG IVP ×9 (02:48→23:36)
--- NOTE | 2020-06-04 05:21 | PC.NURSE ---
Attempted to get blood pressure on patient. Was not able to read causing discomfort and pain to patient. Will try again at a later time.
[2020-06-04] MEDS: LORazepam 2 mg/mL INJ 1 mL IVP ×8 (06:19→23:36)
--- NOTE | 2020-06-04 08:05 | PC.NURSE ---
Attempted to get blood pressure on patient. Patient had pain from cuff so did not attempt again.
[2020-06-04] MEDS: scopolamine 1.5 Patch 1 PATCH TRANSDERMA (09:36)
--- NOTE | 2020-06-04 11:24 | P.PN_ITS ---
Subjective Subjective: Interval history: Patient appears comfortable. Family at bedside. Medications: Reviewed: Yes Vitals/I&O/Wt Last Vital Signs Temp 98.1 F 06/04/20 04:00 Pulse 95 06/04/20 08:00 Resp 12 06/04/20 10:06 BP 110/70 06/03/20 16:00 Pulse Ox 95 06/04/20 08:00 06/03/20 06/04/20 06/04/20 22:59 06:59 14:59 Output Total 75 / 75 Balance -75 / -75 Weight last 48 hrs Weight 120.202 kg Weight 120.23 kg Physical Exam Narrative: EXAM NARRATIVE: General exam is appears comfortable Cardiovascular, irregular, irregular Lungs diminished breath sounds bilaterally Abdomen soft, bowel sounds are noted Extremities, dressing noted left lower extremity. This was not removed. No clubbing Data : 06/01/20 04:16 06/01/20 04:16 A&P Assessment and plan (1) Acute renal failure: Last lab work June 01. She has been transitioned to comfort measures. She is not taking in p.o. fluids. Renal function is expected to decline. She is now hypoxic on room air when I evaluated her. Status: Acute Qualifiers: Acute renal failure type: with acute tubular necrosis Qualified Code(s): N17.0 - Acute kidney failure with tubular necrosis (2) Anasarca: Status: Acute (3) Septic shock: Status: Acute (4) Chronic anemia: Status: Chronic (5) Acute respiratory failure: No acute intervention Status: Acute Qualifiers: Respiratory failure complication: unspecified whether with hypoxia or hypercapnia Qualified Code(s): J96.00 - Acute respiratory failure, unspecified whether with hypoxia or hypercapnia Additional A&P Information History of bacteremia last hospital stay with [facility] Multiple other medical problems as listed on admission history and physical and multiple progress notes. Secondary to patient's multiple comorbidities family has opted for comfort measures. Dialysis was discontinued and patient was moved to comfort measures on June 01. At this time she appears comfortable. She has PRN's for morphine as well as Ativan. I visited with family and they appear satisfied with comfort care measures being performed. Attestations Medical Necessity Statement*: Needs continued hospitalization, for comfort measures in this patient at end of life. 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
[2020-06-05] VITALS (10 sets, daily range): PULSE 84–97; RESP 10–13; TEMP 35.9; O2SAT 90–98
[2020-06-05] MEDS: morphine 4 mg/mL SDV 1 mL 2 MG IVP ×5 (02:36→21:28)
[2020-06-05] MEDS: LORazepam 2 mg/mL INJ 1 mL IVP ×5 (02:37→21:28)
--- NOTE | 2020-06-05 09:50 | PM.PN ---
Subjective Subjective: Interval history: Patient appears comfortable. Family at bedside. Medications: Reviewed: Yes Medication Review Details: Current Medications Acetaminophen (Tylenol) 650 mg PA Q6H PRN PRN Reason: FEVER Last Admin: 05/26/20 22:15 Dose: 650 mg Documented by: Apixaban (Eliquis) 2.5 mg PO BID [facility] Last Admin: 05/30/20 17:03 Dose: Not Given Documented by: Aripiprazole (Abilify) 5 mg PO BID [facility] Last Admin: 05/31/20 15:21 Dose: Not Given Documented by: Atorvastatin Calcium (Lipitor) 40 mg PO DAILY [facility] Last Admin: 05/31/20 08:18 Dose: Not Given Documented by: Bisacodyl (Bisac-Evac) 10 mg PA DAILY [facility] Last Admin: 05/31/20 10:34 Dose: Not Given Documented by: Collagenase (Santyl) 1 applic TOPICAL DAILY [facility] Last Admin: 05/31/20 11:56 Dose: 1 applic Documented by: Fentanyl (Sublimaze) 25 mcg IVP Q2H PRN PRN Reason: Severe Pain or agitation Last Admin: 05/29/20 23:56 Dose: 25 mcg Documented by: Glucagon (Glucagen) 1 mg IM ONCE PRN; Protocol PRN Reason: Adult Acute Hypoglycemia Prot. Dextrose (D5w) 500 mls @ 100 mls/hr IV ONCE PRN; Protocol PRN Reason: Adult Acute Hypoglycemia Prot Last Infusion: 05/25/20 19:46 Dose: Infused Documented by: Linezolid (Zyvox Premix) 600 mg in 300 mls @ 300 mls/hr IV Q12H [facility]; Protocol Last Admin: 05/28/20 02:07 Dose: 300 mls/hr Documented by: Albumin Human (Albumin) 12.5 gm in 50 mls @ 60 mls/hr IV PRN PRN PRN Reason: Hypotension and/or symptomatic Fentanyl 1,000 mcg/ Sodium (Chloride) 100 mls @ 0 mls/hr IV .Q0M [facility]; Protocol Last Admin: 05/31/20 23:38 Dose: 100 mcg/hr, 10 mls/hr Documented by: Imipenem/Cilastatin Sodium 250 (mg/ Sodium Chloride) 100 mls @ 200 mls/hr IV Q6H [facility]; Protocol Last Admin: 06/01/20 03:12 Dose: 200 mls/hr Documented by: Levofloxacin/Dextrose (Levaquin-D5w) 750 mg in 150 mls @ 100 mls/hr IV Q48H [facility]; Protocol Last Infusion: 05/30/20 11:00 Dose: Infused Documented by: Insulin Aspart (Novolog) 0 unit SUBCUT TIDWM [facility]; Protocol Last Admin: 05/31/20 20:36 Dose: Not Given Documented by: Lanolin (Lanolin Oint) 1 applic TOPICAL PRN PRN PRN Reason: DRYNESS Last Admin: 05/31/20 15:20 Dose: 1 applic Documented by: Levothyroxine Sodium (Synthroid) 100 mcg IVP DAILY [facility] Last Admin: 05/31/20 11:15 Dose: 100 mcg Documented by: Lorazepam (Ativan) 2 mg IVP Q4H PRN PRN Reason: ANXIETY Last Admin: 05/31/20 22:55 Dose: 2 mg Documented by: Magnesium Hydroxide (Milk Of Magnesia) 30 ml PO DAILY PRN PRN Reason: Constipation Metoprolol Tartrate (Metoprolol Tartrate) 5 mg IV Q4H PRN PRN Reason: tachycardia Last Admin: 05/26/20 19:59 Dose: 5 mg Documented by: Midazolam HCl (Versed) 1 mg IVP Q2H PRN PRN Reason: AGITATION Last Admin: 05/30/20 02:59 Dose: 1 mg Documented by: Morphine Sulfate (Morphine) 1 mg IVP Q2H PRN PRN Reason: SEVERE PAIN Last Admin: 05/26/20 02:28 Dose: 1 mg Documented by: Neomycin/Polymyxin/Bacitracin (Neosporin Oint Tube) 1 applic TOPICAL BID PRN PRN Reason: with dressing changes Last Admin: 05/21/20 15:58 Dose: 1 applic Documented by: Ondansetron HCl (Zofran) 4 mg IVP Q6H PRN PRN Reason: NAUSEA AND VOMITING Pantoprazole Sodium (Protonix) 40 mg IVP Q12H [facility] Last Admin: 05/31/20 21:40 Dose: 40 mg Documented by: Senna/Docusate Sodium (Senna-S) 1 tab PO DAILY [facility] Last Admin: 05/31/20 08:19 Dose: Not Given Documented by: Vitals/I&O/Wt Last Vital Signs Temp 98.1 F 06/04/20 04:00 Pulse 84 06/05/20 08:00 Resp 13 06/05/20 08:00 BP 110/70 06/03/20 16:00 Pulse Ox 95 06/05/20 07:46 06/04/20 06/05/20 06/05/20 22:59 06:59 14:59 Output Total 50 / 50 Balance -50 / -50 Weight last 48 hrs Weight 120.202 kg Physical Exam Narrative: EXAM NARRATIVE: General exam is appears comfortable Cardiovascular, irregular, irregular Lungs diminished breath sounds bilaterally Abdomen soft, bowel sounds are noted Extremities, dressing noted left lower extremity. This was not removed. No clubbing Data : 06/01/20 04:16 06/01/20 04:16 A&P Assessment and plan (1) Acute renal failure: Last lab work June 01. She has been transitioned to comfort measures. She is not taking in p.o. fluids. Renal function is expected to decline. She is now hypoxic on room air when I evaluated her. Status: Acute Qualifiers: Acute renal failure type: with acute tubular necrosis Qualified Code(s): N17.0 - Acute kidney failure with tubular necrosis (2) Anasarca: Status: Acute (3) Septic shock: Status: Acute (4) Chronic anemia: Status: Chronic (5) Acute respiratory failure: No acute intervention Status: Acute Qualifiers: Respiratory failure complication: unspecified whether with hypoxia or hypercapnia Qualified Code(s): J96.00 - Acute respiratory failure, unspecified whether with hypoxia or hypercapnia Additional A&P Information History of bacteremia last hospital stay with [facility] Multiple other medical problems as listed on admission history and physical and multiple progress notes. Secondary to patient's multiple comorbidities family has opted for comfort measures. Dialysis was discontinued and patient was moved to comfort measures on June 01. At this time she appears comfortable. She has PRN's for morphine as well as Ativan. I visited with family and they appear satisfied with comfort care measures being performed. Attestations Medical Necessity Statement*: Comfort Care Coding Level of Care Code Acute Environmental Education Specialist for [facility] Fwd Exam Expanded Problem Focused Diagnoses Acute renal failure N17.0 Acute renal failure type: with acute tubular necrosis Anasarca R60.1 Septic shock A41.9; R65.21 Chronic anemia D64.9 Acute respiratory failure J96.00 Respiratory failure complication: unspecified whether with hypoxia or hypercapnia
--- NOTE | 2020-06-05 10:01 | PC.NURSE ---
Pt repositioned and absorbent pads replaced.
--- NOTE | 2020-06-05 10:50 | PC.NURSE ---
vital signs taken when pt's family members at bedside. could not obtain blood pressure with automatic cuff and family is aware. will retry with manual cuff.
--- NOTE | 2020-06-05 10:51 | DCPLANNER ---
Pg 2 of IM updated and reviewed with both Sons, Hugo and John, who are at bedside. They both comment this won't even come into play as she is staying here. Copy provided.
--- NOTE | 2020-06-05 11:15 | PC.NURSE ---
unable to obtain manual BP. pt repositioned and new absorbent pads placed.
[2020-06-05 11:36] LABS: ANCA Interp Negative (Negative)
--- NOTE | 2020-06-05 13:42 | PC.NURSE ---
morphine and ativan given before preforming dressing changes.
--- NOTE | 2020-06-05 14:00 | PC.NURSE ---
absorbent pads replaced with new, clean ones underneath arms and legs.
--- NOTE | 2020-06-05 14:34 | PC.NURSE ---
checked absorbent pads and replaced pt
--- NOTE | 2020-06-05 15:05 | PC.NURSE ---
full bed change, bed bath, oral care, and hair brushing complete while family present. placed new absorbent pads under all extremities as well as underneath the pt. repositioned pt as well. family denied further needs at this time.
--- NOTE | 2020-06-05 17:00 | PC.NURSE ---
replaced absorbent pads underneath pt upper extremities. absorbent pads underneath pt lower extremities are dry and intact.
--- NOTE | 2020-06-05 18:22 | PC.NURSE ---
END OF SHIFT SUMMARY pt has been able to rest well today. pt's family has requested HR, RR, and O2 be monitored Q4H as well as be placed on a continuous pulse ox and heart monitor. pt is aware and has okay'd BP not being taken due to the cuff being uncomfortable for the pt. pt has had a total of 10ml of clear, dark brown urine out for a 12h shift. new absorbent pads have been placed at 1800. pt was able to open eyes up today during a bed bath and a full, complete bed change. pt tolerated dressing changes well.
--- NOTE | 2020-06-05 19:30 | PC.NURSE ---
No family at bedside during physical assessment.
--- NOTE | 2020-06-05 21:32 | PC.NURSE ---
Per doctors verbal order, a manual and automatic blood pressure was attempted by AYDE Villanueva and was unable to be obtained. Chucks under arms bilaterally changed. No family at bedside.
--- NOTE | 2020-06-05 21:34 | PC.NURSE ---
Morphine 2mg IVP and Ativan 2mg IVP administered, no family at bedside.
--- NOTE | 2020-06-05 22:23 | PC.NURSE ---
Pt resting with respirations, mouth wide open, and audile oral secretions, atropine drops administered to pt. Pt responded by closing her mouth after drops were given. Pt does not seem to be in any pain. Family is not present at this time.
[2020-06-06] VITALS (9 sets, daily range): BP systolic 110; BP diastolic 70; PULSE 106; RESP 10–22; TEMP 35.9; O2SAT 91–96
[2020-06-06] MEDS: LORazepam 2 mg/mL INJ 1 mL IVP ×5 (01:55→15:47)
[2020-06-06] MEDS: morphine 4 mg/mL SDV 1 mL 2 MG IVP ×6 (01:55→15:46)
--- NOTE | 2020-06-06 02:32 | PC.NURSE ---
Administered Morphine 2mg IVP and Ativan 2mg IVP, Pt's pain was a 5 on the Flacc scale. No family at bedside throughout entire shift.
--- NOTE | 2020-06-06 03:22 | PC.NURSE ---
No pain per FLACC scale. Pt resting comfortably. No medications required at this time. No family at bedside.
--- NOTE | 2020-06-06 04:39 | PC.NURSE ---
Rolled patient, administered 4 drops of atropine, 2mg IVP morphine, 2mg IVP ativan, changed chucks under both arms, and changed dressing on left hand. No family at bedside. No family at bedside during entire shift thus far.
--- NOTE | 2020-06-06 12:48 | P.PN_ITS ---
Subjective Subjective: Interval history: Patient appears comfortable. Family at bedside. I had a detailed discussion with the family today and the family seems to be satisfied with our overall care. Medications: Reviewed: Yes Medication Review Details: Current Medications Acetaminophen (Tylenol) 650 mg OR Q6H PRN PRN Reason: FEVER Last Admin: 05/26/20 22:15 Dose: 650 mg Documented by: Apixaban (Eliquis) 2.5 mg PO BID [facility] Last Admin: 05/30/20 17:03 Dose: Not Given Documented by: Aripiprazole (Abilify) 5 mg PO BID [facility] Last Admin: 05/31/20 15:21 Dose: Not Given Documented by: Atorvastatin Calcium (Lipitor) 40 mg PO DAILY [facility] Last Admin: 05/31/20 08:18 Dose: Not Given Documented by: Bisacodyl (Bisac-Evac) 10 mg OR DAILY [facility] Last Admin: 05/31/20 10:34 Dose: Not Given Documented by: Collagenase (Santyl) 1 applic TOPICAL DAILY [facility] Last Admin: 05/31/20 11:56 Dose: 1 applic Documented by: Fentanyl (Sublimaze) 25 mcg IVP Q2H PRN PRN Reason: Severe Pain or agitation Last Admin: 05/29/20 23:56 Dose: 25 mcg Documented by: Glucagon (Glucagen) 1 mg IM ONCE PRN; Protocol PRN Reason: Adult Acute Hypoglycemia Prot. Dextrose (D5w) 500 mls @ 100 mls/hr IV ONCE PRN; Protocol PRN Reason: Adult Acute Hypoglycemia Prot Last Infusion: 05/25/20 19:46 Dose: Infused Documented by: Linezolid (Zyvox Premix) 600 mg in 300 mls @ 300 mls/hr IV Q12H SWATI; Protocol Last Admin: 05/28/20 02:07 Dose: 300 mls/hr Documented by: Albumin Human (Albumin) 12.5 gm in 50 mls @ 60 mls/hr IV PRN PRN PRN Reason: Hypotension and/or symptomatic Fentanyl 1,000 mcg/ Sodium (Chloride) 100 mls @ 0 mls/hr IV .Q0M SWATI; Protocol Last Admin: 05/31/20 23:38 Dose: 100 mcg/hr, 10 mls/hr Documented by: Imipenem/Cilastatin Sodium 250 (mg/ Sodium Chloride) 100 mls @ 200 mls/hr IV Q6H [facility]; Protocol Last Admin: 06/01/20 03:12 Dose: 200 mls/hr Documented by: Levofloxacin/Dextrose (Levaquin-D5w) 750 mg in 150 mls @ 100 mls/hr IV Q48H [facility]; Protocol Last Infusion: 05/30/20 11:00 Dose: Infused Documented by: Insulin Aspart (Novolog) 0 unit SUBCUT TIDWM [facility]; Protocol Last Admin: 05/31/20 20:36 Dose: Not Given Documented by: Lanolin (Lanolin Oint) 1 applic TOPICAL PRN PRN PRN Reason: DRYNESS Last Admin: 05/31/20 15:20 Dose: 1 applic Documented by: Levothyroxine Sodium (Synthroid) 100 mcg IVP DAILY [facility] Last Admin: 05/31/20 11:15 Dose: 100 mcg Documented by: Lorazepam (Ativan) 2 mg IVP Q4H PRN PRN Reason: ANXIETY Last Admin: 05/31/20 22:55 Dose: 2 mg Documented by: Magnesium Hydroxide (Milk Of Magnesia) 30 ml PO DAILY PRN PRN Reason: Constipation Metoprolol Tartrate (Metoprolol Tartrate) 5 mg IV Q4H PRN PRN Reason: tachycardia Last Admin: 05/26/20 19:59 Dose: 5 mg Documented by: Midazolam HCl (Versed) 1 mg IVP Q2H PRN PRN Reason: AGITATION Last Admin: 05/30/20 02:59 Dose: 1 mg Documented by: Morphine Sulfate (Morphine) 1 mg IVP Q2H PRN PRN Reason: SEVERE PAIN Last Admin: 05/26/20 02:28 Dose: 1 mg Documented by: Neomycin/Polymyxin/Bacitracin (Neosporin Oint Tube) 1 applic TOPICAL BID PRN PRN Reason: with dressing changes Last Admin: 05/21/20 15:58 Dose: 1 applic Documented by: Ondansetron HCl (Zofran) 4 mg IVP Q6H PRN PRN Reason: NAUSEA AND VOMITING Pantoprazole Sodium (Protonix) 40 mg IVP Q12H [facility] Last Admin: 05/31/20 21:40 Dose: 40 mg Documented by: Senna/Docusate Sodium (Senna-S) 1 tab PO DAILY [facility] Last Admin: 05/31/20 08:19 Dose: Not Given Documented by: Vitals/I&O/Wt Last Vital Signs Temp 96.6 F L 06/05/20 10:44 Pulse 106 H 06/06/20 04:00 Resp 22 H 06/06/20 11:18 BP 110/70 06/03/20 16:00 Pulse Ox 91 06/06/20 11:18 06/05/20 06/06/20 06/06/20 22:59 06:59 14:59 Output Total Balance - Physical Exam Narrative: EXAM NARRATIVE: General exam is appears comfortable Cardiovascular, irregular, irregular Lungs diminished breath sounds bilaterally Abdomen soft, bowel sounds are noted Extremities, dressing noted left lower extremity. This was not removed. No clubbing Resp: COMMON NORMALS: No use of accessory muscles GI: COMMON NORMALS: non-tender Data : 06/01/20 04:16 06/01/20 04:16 A&P Assessment and plan (1) Acute renal failure: Last lab work June 01. She has been transitioned to comfort measures. She is not taking in p.o. fluids. Renal function is expected to decline. She is now hypoxic on room air when I evaluated her. Status: Acute Qualifiers: Acute renal failure type: with acute tubular necrosis Qualified Code(s): N17.0 - Acute kidney failure with tubular necrosis (2) Anasarca: Status: Acute (3) Septic shock: Status: Acute (4) Chronic anemia: Status: Chronic (5) Acute respiratory failure: No acute intervention Status: Acute Qualifiers: Respiratory failure complication: unspecified whether with hypoxia or hypercapnia Qualified Code(s): J96.00 - Acute respiratory failure, unspecified whether with hypoxia or hypercapnia Additional A&P Information History of bacteremia last hospital stay with VRE Multiple other medical problems as listed on admission history and physical and multiple progress notes. Secondary to patient's multiple comorbidities family has opted for comfort measures. Dialysis was discontinued and patient was moved to comfort measures on June 01. At this time she appears comfortable. She has PRN's for morphine as well as Ativan. I visited with family and they appear satisfied with comfort care measures being performed. Attestations Medical Necessity Statement*: Patient is comfort care. Coding Level of Care Code Acute [employer] Officer for Darek Ojeda Diagnoses Acute renal failure N17.0 Acute renal failure type: with acute tubular necrosis Anasarca R60.1 Septic shock A41.9; R65.21 Chronic anemia D64.9 Acute respiratory failure J96.00 Respiratory failure complication: unspecified whether with hypoxia or hypercapnia
[2020-06-06] MEDS: lanolin oint 7 gm 1 APPLIC TOPICAL (15:46)
--- NOTE | 2020-06-06 16:54 | PC.NURSE ---
pt is on comfort care.
--- NOTE | 2020-06-06 17:48 | PC.NURSE ---
patient had no heart beat and no resp. confirmed by second nurse. family at [facility]. TOD 1711.
--- NOTE | 2020-06-06 19:43 | PC.NURSE ---
[facility] [place] notified that patient is ready for pickup.
--- NOTE | 2020-06-06 20:55 | PC.NURSE ---
[facility] here to transport patient, patient moved to [facility] and taken off floor at this time.
--- NOTE | 2020-06-24 14:21 | P.DES_ITS ---
Discharge Providers DDS Date of Admission: 05/21/20 08:30 Date Summary Completed: 06/24/20 Attending Provider at Admission: Vaibhav Mcknight MD Time of : 17:48 Attending Provider at Discharge: Fernando Keys MD Pronouncing Clinician: Milagros LINO Diagnoses Hospital Diagnoses (1) Acute renal failure: Qualifiers: Acute renal failure type: with acute tubular necrosis Qualified Code(s): N17.0 - Acute kidney failure with tubular necrosis (2) Anasarca: (3) Septic shock: (4) Chronic anemia: (5) Acute respiratory failure: Qualifiers: Respiratory failure complication: unspecified whether with hypoxia or hypercapnia Qualified Code(s): J96.00 - Acute respiratory failure, unspecified whether with hypoxia or hypercapnia Reason for Visit Reason for Visit: Stroke like symptoms Summary Date and Time of : Date of : 06/06/20 Time of : 17:48 Summary: Summary: 69 year old female who is had multiple hospital admissions in the last 6 months, recently recovering from her VRE bacteremia secondary to bilateral lower extremity cellulitis, history of ESBL UTIs, chronic Patino, 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 Patient was initially admitted to ICU following evaluation for possible stroke given noted decreased responsiveness, left gaze preference and aphasia.She was evaluated by Dr. Owusu and not deemed an appropriate candidate for tPA due to noted improvement on her arrival to the ER. Patient has been admitted at our facility on multiple occasions, most recently approximately 2 weeks prior to this hospital stay. During that admission she had been treated for infected left lower extremity ulcers which required surgical debridement, VRE bacteremia, UTI. She had had a PICC line placed and was to be treated with 4 weeks of Zyvox. She was noted to have atrial fibrillation with RVR so was started on beta-laina for rate control and heparin drip close monitoring of her hemoglobin as she does have underlying anemia and had previously required transfusion of 2 units of PRBCs. As part of her work-up she had an echo done with noted drop in ejection fraction to 30 to 35% with some noted troponin elevation though no significant delta. Cardiology was consulted for further recommendations. Due to concern for continued infection of her lower extremity wounds surgery was consulted and she had further bedside debridement of her wounds. She was then transferred to the cardiac stepdown unit once more stable. Unfortunately during the course of her hospitalization she developed worsening renal function, oliguria and worsening respiratory status after having failed trial of IV fluid hydration. Due to noted decreased responsiveness, fluid overload she was transferred to the ICU for close monitoring. She continued to decompensate with noted severe acidosis and was subsequently intubated. Nephrology was consulted and recommended emergent dialysis so surgery consulted for temporary dialysis catheter placement. During initial trial of hemodialysis patient had significant hypotension at which point procedure was discontinued. She was started on dual pressor support after which dialysis was retried. Unfortunately we were unable to pull off any fluid due to hypotension. She then also developed septic shock with noted acute metabolic encephalopathy, continued renal impairment, acute respiratory failure, hypotension, lactic acidosis and high-grade temperatures. She had ready been screened for COVID-19 and found to be negative. Chest x-ray did not show any signs of acute infection. She also had evaluation for possible GI source of infection which was also negative. 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 She was gradually weaned off pressor support and acidosis resolved and she developed alkalosis. She remained on ventilator support with minimal sedation, has consistently been breathing over the ventilator. She was grossly edematous with a total fluid balance of approximately 11 to 12 L. Per nephrology recommendations she was started on a Lasix drip for approximately 24 hours with a urine output of approximately 900 mL within that timeframe. Cultures have resulted with urine cultures growing ESBL E. coli and pseudomonas aeruginosa. Blood cultures have been negative, sputum cultures have also been negative. She has consistently been on IV antibiotic support, tailored per culture sensitivity profile. As part of her work-up she was found to be positive for BRISSA with a titer of 1:1280, speckled pattern plan was to do more specific work-up which may include a renal biopsy once patient is more stable. Surgery was consulted to reevaluate left lower extremity wounds as they are acutely infected. She would likely need additional debridement but is too unstable more aggressive debridement.Cardiology recommended repeat echo with contrast which shows ejection fraction of 60%, no LV thrombus, no regional wall motion abnormalities. Patient son was up to date with the critical illness of her mother, outlining patient's critical status, overall guarded prognosis given her multiple underlying comorbidities, multiple hospital readmissions, limited quality of life, poor nutritional status. He has consistently desired aggressive measures and has requested patient to be transferred to a higher level of care. Unfortunately following several calls to [facility] and [facility] in [place], [facility] in [place], there are no ICU beds currently available.Patient was finally accepted to [facility] in [place],but finally patient son decided to keep her at [facility].The day i assumed clinical responsibilty of the patient ,family has decided to make her comfort care.Family wishes were honoured and she was made comfort care with comfort care protocol in place Additional Data: Advance directives?: Yes Discharge Plan Discharge Patient Disposition: Condition: Stable Prescriptions: No Action multivitamin Tablet 1 tab PO DAILY RF: 0 Lasix 40 mg Tablet 40 mg PO DAILY RF: 0 atorvastatin 40 mg Tablet 40 mg PO DAILY RF: 0 senna 8.6 mg Tablet 8.6 mg PO BID RF: 0 polyethylene glycol 3350 17 gram Powder In Packet 17 g PO DAILY PRN (Reason: Constipation) RF: 0 venlafaxine 150 mg Capsule,Extended Release 24hr 150 mg PO DAILY RF: 0 aspirin 81 mg Tablet,Delayed Release (Dr/Ec) 81 mg PO DAILY RF: 0 acetaminophen 650 mg Tablet Extended Release 650 mg PO Q6H PRN (Reason: Pain) RF: 0 Percocet 5-325 mg Tablet 1 tab PO Q4H PRN (Reason: Pain) RF: 0 linezolid 600 mg Tablet 600 mg PO BID RF: 0 insulin aspart U-100 100 unit/mL Solution See Rx Instructions .ROUTE .COMPLEX RF: 0 pantoprazole 40 mg Tablet,Delayed Release (Dr/Ec) 40 mg PO DAILY RF: 0 simvastatin 20 mg Tablet 20 mg PO BEDTIME RF: 0 levothyroxine 125 mcg Tablet 125 mcg PO DAILY RF: 0 metoprolol tartrate 50 mg Tablet 50 mg PO BID RF: 0 mirtazapine 45 mg Tablet 45 mg PO BEDTIME RF: 0 nystatin 100,000 unit/gram Powder 1 applic TOPICAL BID RF: 0 cyclobenzaprine 5 mg Tablet 5 mg PO TID PRN (Reason: Muscle Spasm) RF: 0 aripiprazole 5 mg Tablet 5 mg PO BID RF: 0 Hemorrhoidal Cream 0.25-1 % Cream 1 applic [place] BID PRN (Reason: Hemorrhoids) RF: 0 Breo Ellipta 200-25 mcg/dose Blister With Device 1 inh INHALATION DAILY RF: 0 Discharge Activity: Bedrest Discharge Date/Time: 06/06/20 20:55 DS Attestations Time Spent in /Discharge Care*: greater than 30 min Quality - AMI: AMI present?: No Quality - Stroke: CVA present?: No Onset of Symptoms Date: 05/21/20 Symptom Onset Unknown: No Quality - VTE: VTE present?: No Coding Level of Care Code Acute Supervisor Scouring Pads for [facility] Fwd Diagnoses Acute renal failure N17.0 Acute renal failure type: with acute tubular necrosis Anasarca R60.1 Septic shock A41.9; R65.21 Chronic anemia D64.9 Acute respiratory failure J96.00 Respiratory failure complication: unspecified whether with hypoxia or hypercapnia
== END 2020-06-06 20:55 | disposition short-term general hospital (02) | DRG 40 ==
LOC: ER 06:07 → ICU 09:34 → CSU 18:46 → ICU 05-25 13:32 → MEDSURG 06-01 19:26
PROVIDERS: Emergency Medicine; Family Medicine; Internal Medicine; Internal Medicine Nephrology; Admitting Provider Family Medicine; Visit Provider Internal Medicine
DX: I63.9 Cerebral infarction, unspecified (principal); I21.A1 Myocardial infarction type 2; G93.41 Metabolic encephalopathy; J96.00 Acute respiratory failure, unspecified whether with hypoxia or hypercapnia; R65.21 Severe sepsis with septic shock; A41.9 Sepsis, unspecified organism; N17.0 Acute kidney failure with tubular necrosis; R78.81 Bacteremia; F01.51 Vascular dementia, unspecified severity, with behavioral disturbance; L97.929 Non-pressure chronic ulcer of unspecified part of left lower leg with unspecified severity; I24.8 Other forms of acute ischemic heart disease; I51.81 Takotsubo syndrome; E87.2 Acidosis; N30.00 Acute cystitis without hematuria; L03.116 Cellulitis of left lower limb; N18.3 Chronic kidney disease, stage 3 (moderate); J43.9 Emphysema, unspecified; I12.9 Hypertensive chronic kidney disease with stage 1 through stage 4 chronic kidney disease, or unspecified chronic kidney disease; E11.22 Type 2 diabetes mellitus with diabetic chronic kidney disease; E11.69 Type 2 diabetes mellitus with other specified complication; G47.33 Obstructive sleep apnea (adult) (pediatric); D63.1 Anemia in chronic kidney disease; R23.4 Changes in skin texture; E11.21 Type 2 diabetes mellitus with diabetic nephropathy; E03.9 Hypothyroidism, unspecified; K59.00 Constipation, unspecified; E78.5 Hyperlipidemia, unspecified; G89.29 Other chronic pain; Z79.891 Long term (current) use of opiate analgesic; J44.9 Chronic obstructive pulmonary disease, unspecified; K44.9 Diaphragmatic hernia without obstruction or gangrene; Z79.82 Long term (current) use of aspirin; Z79.4 Long term (current) use of insulin
CPT/HCPCS: 12345; 36415; 36416; 36430; 36592; 36600; 70450; 71045; 71250; 74176; 76770; 76857; 80048; 80051; 80053; 80061; 80202; 80500; 81001; 81003; 82436; 82533; 82550; 82570; 82728; 82803; 82810; 82962; 83010; 83036; 83516; 83520; 83540; 83550; 83605; 83615; 83735; 83880; 83986; 84100; 84133; 84145; 84155; 84156; 84165; 84260; 84300; 84443; 84484; 85014; 85018; 85025; 85045; 85378; 85610; 85651; 85730; 85999; 86038; 86140; 86160; 86706; 86803; 86850; 86900; 86920; 87040; 87070; 87077; 87086; 87186; 87205; 87340; 90935; 93005; 93308; 93880; 94002; 94003; 94640; 94660; 94762; 94799; 96372; 96375; 97161; 97166; 97530; 97535; 99284; A4570; C1751; C1752; C8924; C9113; J0330; J0743; J1120; J1170; J1250; J1644; J1650; J1940; J1956; J2020; J2060; J2250; J2270; J2405; J2543; J2704; J3010; J3475; J3480; J3490; J7030; J7040; J7050; P9016; P9047; Q0162; Q3014; Q9956; S0030